=== PATIENT | female | born 1940 | race Caucasian/White ===

== ENCOUNTER 2023-04-11 10:42 | Outpatient (OUT) | payer MEDICARE, MEDICAID, SELFPAY ==
--- NOTE | 2023-04-11 10:45 | MM_ITS ---
Patient: JOYCELYN HAMM Exam Date: 04/11/2023 : 1940 Gender:F Ordering : DR ADRIANNE FARLEY Admission #: [id number] Family : Order #: [id number] CLICK HERE TO VIEW EXAM RADIOLOGY REPORT PROCEDURE: MM SCREENING MAMMO BI COMPARISON: MG MAMM SCREEN ANNA W CAD, 04/05/2022. MG MAMM SCREEN ANNA W CAD, 03/07/2021. MG MAMM SCREEN 3D ANNA CAD, 06/24/2017. INDICATIONS: Screening mammogram Z12.31 Calculator Name NCI Breast Cancer Risk Assessment Tool 5 Year Breast Cancer Risk 4.80% Lifetime Breast Cancer Risk 5.40% Personal Breast Cancer No Personal Ovarian Cancer No Treatments None Family Cancers Sister with breast cancer at age 59; Sister with breast cancer at age 49. LOCATION: [facility] BREAST COMPOSITION: Extremely dense, which lowers the sensitivity of mammography. FINDINGS: DIAGNOSTIC CATEGORY 2--BENIGN FINDING: RIGHT BREAST: No significant suspicious finding. Scattered benign-appearing calcifications are present. No significant change has occurred. LEFT BREAST: No significant suspicious finding. Scattered benign-appearing calcifications are present. Scattered benign-appearing lymph nodes are present. No significant change has occurred. RECOMMENDATIONS: ROUTINE MAMMOGRAM AND CLINICAL EVALUATION IN 12 MONTHS. PLEASE NOTE: A NORMAL MAMMOGRAM DOES NOT EXCLUDE THE POSSIBILITY OF BREAST CANCER. A CLINICALLY SUSPICIOUS PALPABLE LUMP SHOULD BE BIOPSIED. Dictated by: Jaziel Mcpherson M.D. on 04/12/2023 at 14:43 Approved by: Jaziel Mcpherson M.D. on 04/12/2023 at 14:49
== END 2023-04-11 10:43 ==
LOC: MAMMO 10:42
PROVIDERS: PCP Family Medicine; Visit Provider Family Medicine
DX: Z12.31 Encounter for screening mammogram for malignant neoplasm of breast (principal); Z80.3 Family history of malignant neoplasm of breast
CPT/HCPCS: 77067

== ENCOUNTER 2023-10-14 11:55 | Outpatient (OUT) | payer MEDICARE, MEDICAID, SELFPAY ==
--- NOTE | 2023-10-14 12:02 | XR_ITS ---
The [address] [address] Patient Name: JOYCELYN HAMM MRN: [id number] date: 1940 Sex: F Assigned Patient Location: [facility] Current Patient Location: [facility] Accession/Order Number: [id number] Exam Date: 10/14/2023 12:22 Report Date: 10/14/2023 13:03 At the request of: RADHA CARPIO Procedure: XR chest 2V EXAM: XR chest 2V HISTORY: Bronchitis, wheezing COMPARISON: None. TECHNIQUE: PA and lateral views of the chest. FINDINGS: The cardiomediastinal silhouette is enlarged. Interstitial opacity. There is no pneumothorax. No pleural effusion is noted. The osseous structures are intact. XR/XR chest 2V IMPRESSION: Cardiomegaly with congestion. Electronically authenticated by: KYLEE MANCUSO Date: 10/14/2023 13:03
== END 2023-10-14 11:56 | disposition home or self-care (01) ==
PROVIDERS: PCP Family Medicine; Visit Provider Nurse Practitioner Family
DX: J40 Bronchitis, not specified as acute or chronic (principal); I51.7 Cardiomegaly
CPT/HCPCS: 71046

== ENCOUNTER 2024-03-04 06:36 | Outpatient (OUT) | payer MEDICARE, MEDICAID, SELFPAY ==
--- OUTSIDE RECORDS SUMMARY | 2024-03-03 06:49 | XMS_ITS | CCD ---
Author Organization [facility] Care Team Providers Care Video Editing Intern Name Role Phone CHRISTIE ESTRADA Referring Unavailable RACHEL MAE Primary Care Unavailable CHRISTIE ESTRADA Admitting Unavailable CHRISTIE ESTRADA Attending Unavailable KITTY SINGH Consulting Unavailable AKBANITITO Consulting Unavailable MAI CHOU Consulting Unavailable Danyel Angelo Unavailable LISA, DR RANDHAWA Admitting Unavailable MISC, DR BACK Primary Care Unavailable DYCUSBURG, DR GIA Ralph Consulting Unavailable CHABAN, DR RANDHAWA Attending Unavailable CHABAN, DR RANDHAWA Consulting Unavailable MISC, DR BACK Admitting Unavailable MISC, DR BACK Primary Care Unavailable WEST, DR GIA Ralph Consulting Unavailable MISC, DR BACK Attending Unavailable MISC, DR BACK Consulting Unavailable ZIEBER, DR DEYA Aguilera Consulting Unavailable MISC, DR BACK Admitting Unavailable MISC, DR BACK Attending Unavailable MISC, DR BACK Consulting Unavailable MISC, DR BACK Primary Care Unavailable ZIEBPRABHU, DR DEYA Aguilera Consulting Unavailable MISC, DR BACK Admitting Unavailable MISC, DR BACK Attending Unavailable MISC, DR BACK Primary Care Unavailable MISC, DR BACK Primary Care Unavailable CORIE, MYLES Admitting Unavailable CORIEMYLES Attending Unavailable CORIE AHMAD Consulting Unavailable MISC, DR BACK Admitting Unavailable MISC, DR BACK Attending Unavailable MISC, DR BACK Consulting Unavailable MISC, DR BACK Primary Care Unavailable ZIEBER, DR DEYA Aguilera Consulting Unavailable MISC, DR BACK Admitting Unavailable MISC, DR BACK Attending Unavailable MISC, DR BACK Primary Care Unavailable DYCUSBURG, DR GIA Ralph Consulting Unavailable MISC, DR BACK Consulting Unavailable RACHEL MAE Primary Care Unavailable RUEL WONG Admitting Unavailable RUEL WONG Attending Unavailable MARYCRUZ Barnett Admitting Unavailable KUNS, CARI R Primary Care Unavailable MARYCRUZ Barnett Attending Unavailable KUNS, CARI R Primary Care Unavailable Dolce, Ramiro R Admitting Unavailable Dolce, Ramiro R Attending Unavailable MARYCRUZ Barnett Admitting Unavailable MARYCRUZ Barnett Attending Unavailable RACHEL MAE Primary Care Unavailable MARYCRUZ Barnett Attending Unavailable MARYCRUZ Barnett Admitting Unavailable Klaege, Nery Primary Care Unavailable KUNS, CARI R Primary Care Unavailable Dolce, Ramiro R Admitting Unavailable Dolce, Ramiro R Attending Unavailable Klaedustin, Nery Attending Unavailable Klaege, Nery Primary Care Unavailable MERLENE, RACHEL Mackenzie Primary Care Unavailable RUEL WONG Admitting Unavailable RUEL WONG Attending Unavailable James Healy Admitting Unavailable James Healy Attending Unavailable RACHEL MAE Primary Care Unavailable Eve FARRAR, Erma Fields Admitting Unavailable Eve FARRAR, Erma E Attending Unavailable RACHEL MAE Primary Care Unavailable MARYCRUZ Barnett Admitting Unavailable MARYCRUZ Barnett Attending Unavailable RACHEL MAE Primary Care Unavailable KUNS, CARI R Primary Care Unavailable MARYCRUZ Barnett Attending Unavailable MARYCRUZ Barnett Admitting Unavailable Evita Baker Unavailable Shirin [employer]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 Givens Primary Care Provider Unallocated, [place] Provider Primary Care Provider SILVA SANDERS Attending Unavailable SILVA SANDERS Attending Unavailable CARI NAPOLES Attending Unavailable CARI NAPOLES Referring Unavailable CARI NAPOLES Primary Care Unavailable CARI NAPOLES Attending Unavailable CARI NAPOLES Referring Unavailable SHIRIN, CARI ALVARADO Primary Care Unavailable JERDE CELESTIN Attending Unavailable CARI NAPOLES Referring Unavailable CARI NAPOLES Primary Care Unavailable CARI NAPOLES Referring Unavailable SHIRIN, CARI ALVARADO Primary Care Unavailable JERED CELESTIN Referring Unavailable CARI NAPOLES Primary Care Unavailable Medications Current Medications Medication Drug Class(es) Dates Sig (Normalized) Sig (Original) [id number] 200 actuat albuterol 0.09 mg/actuat metered dose inhaler (11 sources) beta2-Adrenergic Agonist Start: 10-09-2023 take 2 puff(s) by inhalation four times daily as needed albuterol (PROVENTIL HFA;VENTOLIN HFA) 90 mcg/actuation inhaler INHALE 2 PUFFS 4 TIMES A DAY NEEDED 0 10/09/2023 Active Start: 10-09-2023 take 2 puff(s) by in halation four times daily as needed Albuterol Sulfate HFA 108 (90 Base) MCG/ACT 2 puffs Inhalation 4 times a day prn Oct, Active albuterol HFA (V entolin HFA) 90 mcg/act inhaler Ventolin HFA 90 mcg/actuation aerosol inhaler INHALE 2 PUFFS EVERY 3 TO 4 HOURS NEEDED 0 Active allopurinol 300 mg oral tablet (16 sources) Xanthine Oxidase Inhibitor Start: 07-22-2023 End: 01-14-2024 take 1 tablet by mouth once daily in the morning allopurinoL (ZYLOPRIM) 300 mg tablet Indications: Gouty arthropathy take 1 tablet by mouth every morning 30 tablet 5 01/14/2024 Active apixaban 5 mg oral tablet (16 sources) Factor Xa Inhibitor Start: 10-03-2022 End: 11-01-2023 take 1 tablet by mouth in the morning, then take 1 tablet by mouth at bedtime apixaban (ELIQUIS) 5 mg tablet Take 1 tablet (5 mg total) by mouth in the morning and 1 tablet (5 mg total) before bedtime. 180 tablet 3 11/01/2023 Active atorvastatin 40 mg oral tablet (16 sources) HMG-CoA Reductase Inhibitor Start: 07-22-2023 End: 12-05-2023 take 1 tablet by mouth once daily in the morning atorvastatin (LIPITOR) 40 mg tablet Indications: Mixed hyperlipidemia TAKE 1 TABLET BY MOUTH EVERY MORNING 90 tablet 0 12/05/2023 Active benzonatate 200 mg oral capsule (10 sources) Non-narcotic Antitussive Start: 10-09-2023 End: 01-14-2024 take 1 capsule by mouth three times daily as needed for cough benzonatate (TESSALON PERLES) 200 mg capsule Take 1 capsule (200 mg total) by mouth 3 (three) times a day as needed for cough. 20 capsule 1 01/14/2024 Active brompheniramine maleate 0.4 mg/ml / dextromethorphan hydrobromide 2 mg/ml / pseudoephedrine hydrochloride 6 mg/ml oral solution (5 sources) alpha-Adrenergic Agonist, Uncompetitive B-dppdsg-S-asparta te Receptor Antagonist, Sigma-1 Agonist Start: 01-09-2024 take 5 mL by mouth four times daily as needed brompheniramine-pse udoeph-DM 2-30-10 mg/5 mL syrup Take 5 mL by mouth 4 (four) times a day as needed for allergies. 120 mL 1 01/09/2024 Active bumetanide 2 mg oral tablet (15 sources) Loop Diuretic Start: 07-22-2023 take 1 tablet by mouth once daily bumetanide (BUMEX) 2 mg tablet Take 1 tablet (2 mg total) by mouth daily. 90 tablet 1 07/22/2023 Active calcium carbonate 1250 mg / cholecalciferol 200 unt oral tablet (10 sources) Vitamin D take 1 tablet by mouth once in the morning calcium carbonate-vitamin D3 (OSCAL 500 + D) 500 mg(1,250mg) -200 units per tablet Take 1 tablet by mouth in the morning and 1 tablet in the evening. Take with meals. 0 Active cetirizine hydrochloride 10 mg oral tablet (13 sources) Histamine-1 Receptor Antagonist Start: 07-22-2023 End: 01-14-2024 take 1 tablet by mouth once daily in the morning cetirizine (ZyrTEC) 10 mg tablet take 1 tablet by mouth every morning 30 tablet 5 01/14/2024 Active CPAP Machine (3 sources) CPAP Machine Act priya 24 hr dilTIAZem hydrochloride 120 mg extended release oral capsule (15 sources) Calcium Channel Alla Start: 07-22-2023 take 1 capsule by mouth in the morning, then take 1 capsule by mouth every twenty-four hours at bedtime dilTIAZem CD (CARDIZEM CD) 120 mg 24 hr capsule Take 1 capsule (120 mg total) by mouth in the morning and 1 capsule (120 mg total) before bedtime. 60 capsule 6 07/22/2023 Active dilTIAZem ER (Ti azac) 120 MG 24 hr capsule 120 mg. 0 Active dilTIAZem HCl 12 0 MG as directed Orally Active doxycycline hyclate 100 mg oral tablet (2 sources) Tetracycline-class Drug Start: 10-09-2023 End: 11-01-2023 take 1 tablet by mouth twice daily doxycycline (VIBRA-TABS) 100 mg tablet TAKE 1 TABLET BY MOUTH TWICE A DAY FOR 10 DAYS 0 10/09/2023 11/01/2023 Discontinued (Therapy completed) flash glucose scanning reader (FREESTYLE GLO 14 DAY READER) misc (8 sources) flash glucose scanning reader (FREESTYLE GLO 14 DAY READER) [facility] FreeStyle Glo 14 Day [place] 0 Active flash glucose sensor (FREESTYLE GLO 14 DAY SENSOR) kit (8 sources) flash glucose sensor (FREESTYLE GLO 14 DAY SENSOR) kit FreeStyle Glo 14 Day Sensor kit 0 Active 60 actuat fluticasone propionate 0.25 mg/actuat / salmeterol 0.05 mg/actuat dry powder inhaler (2 sources) Corticosteroid, beta2-Adrenergic Agonist take 1 puff(s) by inhalation twice daily Fluticasone-Salmet clarissa 250-50 MCG/ACT aerosol powder Advair Diskus 250 mcg-50 mcg/dose powder for inhalation Inhale 1 puff twice a day by inhalation route for 30 days. 0 Active gabapentin 100 mg oral capsule (20 sources) Anti-epileptic Agent Start: 02-02-2024 take 1 capsule by mouth once daily at bedtime gabapentin (NEURONTIN) 100 mg capsule Indications: Polyneuropathy take 1 capsule by mouth every night at bedtime 30 capsule 2 02/02/2024 Active Start: 07-22-2023 End: 02-02-2024 take 1 capsule by mouth once daily at bedtime gabapentin (NEURONTIN) 100 mg capsule Indications: Polyneuropathy TAKE 1 CAPSULE BY MOUTH EVERY NIGHT AT BEDTIME 30 capsule 2 11/18/2023 02/02/2024 Discontinued Start: 07-22-2023 End: 11-18-2023 take 2 capsules by mouth once daily in the morning, then take 1 capsule by mouth at lunch, then take 1 capsule by mouth once, then take 2 capsules by mouth once daily at bedtime gabapentin (NEURONTIN) 300 mg capsule Indications: Polyneuropathy TAKE 2 CAPSULES BY MOUTH EVERY MORNING , TAKE 1 CAPSULE AT LUNCH , TAKE 1 CAPSULE EVERY AFTERNOON , & TAKE 2 CAPSULES EVERY NIGHT AT BEDTIME 180 capsule 2 11/18/2023 Active Start: 04-02-2023 gabapentin (Ne urontin) 300 MG capsule 300 mg. 0 04/02/2023 Active insulin aspart (NovoLOG) 100 UNIT/ML injection (2 sources) insulin aspart (NovoLOG) 100 UNIT/ML injection as directed Injection 0 Active insulin aspart, human 100 unt/ml injectable solution (13 sources) Insulin Analog inject 0.4 mL by subcutaneous injection in the morning insulin aspart U-100 (NovoLOG) 100 unit/mL injection Inject 0.4 mL (40 Units total) under the skin in the morning and 0.4 mL (40 Units total) at noon and 0.4 mL (40 Units total) in the evening. Inject before meals. Takes 20 units am, 30 units lunch and 30 unit supper.. 0 Active NovoLOG 100 UNIT /ML as directed Subcutaneous Active insulin detemir 100 unt/ml injectable solution (15 sources) Insulin Analog inject 0.2 mL by subcutaneous injection in the morning insulin detemir U-100 (LEVEMIR) 100 unit/mL injection Inject 0.2 mL (20 Units total) under the skin in the morning and 0.2 mL (20 Units total) before bedtime. 80 units at night. 0 Active insulin detemir (Levemir) 100 UNIT/ML injection as directed Subcutaneous 0 Active Levemir 100 UNIT /ML as directed Subcutaneous Active 3 ml insulin lispro 100 unt/ml pen injector (10 sources) Insulin Analog Start: 03-04-2023 inject 20 [IU] by subcutaneous injection at breakfast, then inject 30 [IU] by subcutaneous injection at dinner insulin lispro (HumaLOG KwikPen Insulin) 100 unit/mL insulin pen INJECT 20 UNITS UNDER THE SKIN AT BREAKFAST, 30 UNITS AT LUNCH AND DINNER 0 03/04/2023 Active lactic acid 50 mg/ml topical lotion (8 sources) Start: 07-22-2023 ammonium lactate (LAC-HYDRIN FIVE) 5 % lotion Apply 1 application. topically daily. 226 g 1 07/22/2023 Active levothyroxine sodium 0.137 mg oral tablet (15 sources) l-Thyroxine Start: 06-24-2022 take 1 tablet by mouth in the morning levothyroxine (SYNTHROID, LEVOTHROID) 137 MCG tablet Take 1 tablet (137 mcg total) by mouth in the morning. 90 tablet 3 07/22/2023 Active take 1 tablet by tierra th once daily in the morning Levothyroxine Sodium 137 MCG 1 tablet in the morning on an empty stomach Orally Once a day Active lidocaine 0.05 mg/mg medicated patch (10 sources) Antiarrhythmic, Amide Local Anesthetic lidocaine (LIDODERM) 5 % lidocaine 5 % topical patch 0 Active linagliptin 5 mg oral tablet (15 sources) Dipeptidyl Peptidase 4 Inhibitor Start : 06-24 take 1 tablet by mouth in the morning TRADJENTA 5 mg tablet Take 1 tablet (5 mg total) by mouth in the morning. 0 09/13/2022 Active methylPREDNISolone (2 sources) Corticosteroid Start : 10-09 End: 11-01 methylPREDNISolone (MEDROL, MARCK,) 4 mg tablet TAKE 6 TABLETS ON DAY 1 DIRECTED ON PACKAGE AND DECREASE BY 1 TAB EACH DAY FOR A TOTAL OF 6 DAYS 0 10/09/2023 11/01/2023 Discontinued (Therapy completed) Start: 10-09-2023 Medrol 4 MG as directed Orally As Directed for 6 days Oct, Active 24 hr mirabegron 25 mg extended release oral tablet (17 sources) beta3-Adrenergic Agonist Start: 12-05-2023 End: 01-14-2024 take 2 tablets by mouth once daily in the morning mirabegron (MYRBETRIQ) 25 mg tablet extended release 24 hr take 2 tablets by mouth every morning 60 tablet 5 01/14/2024 Active Start: 07-22-2023 End: 12-05-2023 take 2 tablets by mouth every twenty-four hours in the morning mirabegron (MYRBETRIQ) 25 mg tablet extended release 24 hr Take 2 tablets (50 mg total) by mouth in the morning. 90 tablet 3 07/22/2023 12/05/2023 Discontinued Myrbetriq 25 MG 24 hr tablet 25 mg. 0 Active take 1 tablet by tierra th every twenty-four hours Myrbetriq 25 MG 1 tablet Orally Once a day Active oxygen as ordered (3 sources) oxygen as ordere d Active predniSONE 10 mg oral tablet (1 source) predniSONE 10 MG 4 daily for 7 days, 3 daily for 7 days 2 daily for 7 days, then 1 daily for21 days Orally Once a day for 42 day(s) Active rOPINIRole 0.5 mg oral tablet (13 sources) Nonergot Dopamine Agonist Start: 01-14-2024 take 1 tablet by mouth three times daily rOPINIRole (REQUIP) 0.5 mg tablet take 1 tablet by mouth three times a day 90 tablet 5 01/14/2024 Active Start: 07-23-2023 End: 01-14-2024 take 1 tablet by mouth once daily rOPINIRole (REQUIP) 0.5 mg tablet Take 1 tablet (0.5 mg total) by mouth nightly. 90 tablet 3 07/23/2023 01/14/2024 Discontinued Start: 09-06-2022 rOPINIRole (Re quip) 0.25 MG tablet 0.25 mg 1 (one) time each day at the same time. 0 09/06/2022 Active simvastatin 20 mg oral tablet (2 sources) HMG-CoA Reductase Inhibitor simvastatin (Zocor) 20 MG tablet 20 mg. 0 Active SITagliptin 100 mg oral tablet (2 sources) Dipeptidyl Peptidase 4 Inhibitor SITagliptin (Januvia ) 100 MG tablet 100 mg. 0 Active spironolactone 25 mg oral tablet (15 sources) Aldosterone Antagonist Start: 03-29-20 take 1 tablet by mouth in the morning spironolactone (ALDACTONE) 25 mg tablet Take 1 tablet (25 mg total) by mouth in the morning. 90 tablet 3 07/22/2023 Active TRUE METRIX GLUCOSE METER misc (8 sources) Start: 12-14-19 TRUE METRIX GLUCOSE METER misc TO TEST BLOOD SUGAR THREE TIMES DAILY 0 12/14/2022 Active Problems Active Problems Problem Classification Problem Date Documented Date Episodic/Chronic Cardiac dysrhythmias (14 sources) Paroxysmal atrial fibrillation; Translations: [Paroxysmal atrial fibrillation] Onset: 06-11-2018 11-01-2023 Chronic Chronic kidney disease (1 source) Chronic kidney disease; Translations: [Chronic kidney disease, stage 3a] Onset: 07-22-2023 Chronic obstructive pulmonary disease and bronchiectasis (1 source) Bronchitis, not specified as acute or chronic Episodic Chronic ulcer of skin (10 sources) Chronic ulcer of foot; Translations: [Non-pressure chronic ulcer of other part of unspecified foot with unspecified severity] Onset: 04-05-2023 Resolved: 04-17-2023 04-17-2023 Chronic Conduction disorders (20 sources) Incomplete right bundle branch block; Translations: [Unspecified right bundle-branch block] Onset: 01-15-2018 Resolved: 10-24-2022 01-28-2023 Chronic Diabetes mellitus with complications (20 sources) Type 2 diabetes mellitus with hyperglycemia; Translations: [Type 2 diabetes mellitus] Onset: 01-18-2016 Resolved: 01-28-2023 Chronic Disorders of lipid metabolism (18 sources) Mixed hyperlipidemia; Translations: [Hyperlipidemia] Onset: 02-05-2018 11-01-2023 Chronic Essential hypertension (14 sources) Essential (primary) hypertension; Translations: [Essential hypertension] Onset: 02-05-2018 11-01-2023 Chronic Genitourinary symptoms and ill-defined conditions (8 sources) Mixed urinary incontinence; Translations: [Mixed incontinence] Onset: 07-22-2023 07-22-2023 Chronic Gout and other crystal arthropathies (9 sources) Gouty arthropathy; Translations: [Gout, unspecified] Onset: 01-18-2016 01-28-2023 Chronic Heart valve disorders (20 sources) Rheumatic tricuspid insufficiency; Translations: [Non-rheumatic mitral regurgitation ] Onset: 07-14-2018 11-01-2023 Chronic Hypertension with complications and secondary hypertension (11 sources) Hypertensive chronic kidney disease with stage 1 through stage 4 chronic kidney disease, or unspecified chronic kidney disease; Translations: [Benign hypertensive heart disease without congestive heart failure] Onset: 03-02-2019 07-23-2023 Chronic Malaise and fatigue (1 source) Other fatigue; Translations: [OTHER FATIGUE] Onset: 11-27-2022 Episodic Nutritional deficiencies (10 sources) Vitamin D deficiency; Translations: [Vitamin D deficiency, unspecified] Onset: 01-18-2016 01-28-2023 Chronic Osteoarthritis (12 sources) Osteoarthritis of knee; Translations: [Osteoarthritis of knee, unspecified] Onset: 10-17-2016 01-28-2023 Chronic Other acquired deformities (10 sources) Levoscoliosis; Translations: [Other forms of scoliosis, site unspecified] Onset: 08-28-2017 01-28-2023 Chronic Other and ill-defined heart disease (3 sources) Cardiomegaly; Translations: [CARDIOMEGALY] Onset: 03-01-2021 Chronic Other and ill-defined heart disease (11 sources) Left ventricular hypertrophy; Translations: [Cardiomegaly] Onset: 07-14-2018 11-01-2023 Chronic Other and ill-defined heart disease (19 sources) Bilateral enlargement of atria; Translations: [Cardiomegaly] Onset: 07-14-2018 11-01-2023 Chronic Other circulatory disease (1 source) Other specified symptoms and signs involving the circulatory and respiratory systems; Translations: [OTH SPEC SX SIGNS INVLV CIRC RS] Onset: 11-27-2022 Episodic Other connective tissue disease (3 sources) Pain in both feet; Translations: [Pain in right foot] Onset: 04-02-2023 04-02-2023 Episodic Other diseases of veins and lymphatics (10 sources) Lymphedema of lower extremity; Translations: [Lymphedema, not elsewhere classified] Onset: 04-19-2021 01-28-2023 Chronic Other diseases of veins and lymphatics (11 sources) Stasis dermatitis of lower limb due to chronic peripheral venous hypertension; Translations: [Chronic venous hypertension (idiopathic) with inflammation of unspecified lower extremity] Onset: 12-22-2020 01-28-2023 Chronic Other diseases of veins and lymphatics (1 source) Chronic venous hypertension (idiopathic) with inflammation of unspecified lower extremity; Translations: [Chronic venous hypertension (idiopathic) with inflammation of unspecified lower extremity] Onset: 01-28-2023 Chronic Other hereditary and degenerative nervous system conditions (1 source) Restless legs syndrome; Translations: [RESTLESS LEGS SYNDROME] Onset: 07-26-2022 Chronic Other hereditary and degenerative nervous system conditions (10 sources) Restless legs; Translations: [Restless legs syndrome] Onset: 01-18-2016 01-28-2023 Chronic Other lower respiratory disease (16 sources) Fibrosis of lung; Translations: [Pulmonary fibrosis, unspecified] Onset: 06-07-2022 01-28-2023 Chronic Other lower respiratory disease (4 sources) Pulmonary fibrosis, unspecified; Translations: [PULMONARY FIBROSIS UNSPECIFIED] Onset: 01-03-2022 Resolved: 04-12-2022 Chronic Other lower respiratory disease (4 sources) Cryptogenic organizing pneumonia; 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] Chronic Other lower respiratory disease (7 sources) Cryptogenic organizing pneumonia; 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] Onset: 02-01-2022 Resolved: 04-12-2022 Chronic Other lower respiratory disease (1 source) Cough Onset: 01-09-2024 Episodic Other nervous system disorders (12 sources) Polyneuropathy; Translations: [Polyneuropathy, unspecified] Onset: 01-15-2018 01-28-2023 Chronic Other nutritional; endocrine; and metabolic disorders (8 sources) Body mass index 40+ - severely obese; Translations: [Body mass index (BMI) 45.0-49.9, adult] Onset: 03-09-2022 03-09-2022 Chronic Other nutritional; endocrine; and metabolic disorders (11 sources) Morbid obesity; Translations: [Morbid (severe) obesity due to excess calories] Onset: 09-17-2019 01-28-2023 Chronic Other nutritional; endocrine; and metabolic disorders (1 source) Morbid (severe) obesity due to excess calories; Translations: [Morbid (severe) obesity due to excess calories] Onset: 01-28-2023 Chronic Other skin disorders (1 source) Wound healed; Translations: [Personal history of diseases of the skin and subcutaneous tissue] 12-18-2023 Episodic Other upper respiratory disease (8 sources) Allergic rhinitis due to pollen; Translations: [Allergic rhinitis due to pollen] Onset: 01-18-2016 01-28-2023 Chronic Other upper respiratory infections (2 sources) Viral upper respiratory tract infection; Translations: [Acute upper respiratory infection, unspecified] Onset: 01-09-2024 01-09-2024 Episodic Pulmonary heart disease (14 sources) Pulmonary hypertension; Translations: [Pulmonary hypertension, unspecified] Onset: 10-23-2018 11-01-2023 Chronic Residual codes; unclassified (16 sources) Obstructive sleep apnea syndrome; Translations: [Obstructive sleep apnea (adult) (pediatric)] Onset: 10-17-2016 11-01-2023 Chronic Residual codes; unclassified (3 sources) Obstructive sleep apnea (adult) (pediatric); Translations: [Obstructive sleep apnea (adult) (pediatric)] Onset: 01-03-2022 Resolved: 01-03-2022 Chronic Residual codes; unclassified (2 sources) Hypersomnia; Translations: [Hypersomnia, unspecified] Onset: 11-21-2022 04-05-2023 Chronic Residual codes; unclassified (2 sources) Periodic limb movement disorder; Translations: [Periodic limb movement disorder] Onset: 11-21-2022 04-05-2023 Chronic Residual codes; unclassified (1 source) Viral syndrome; Translations: [Other general symptoms and signs] 01-09-2024 Episodic Residual codes; unclassified (1 source) Other general symptoms and signs; Translations: [Other general symptoms and signs] Onset: 01-09-2024 Episodic Residual codes; unclassified (1 source) Other specified postprocedural states; Translations: [Other specified postprocedural states] Onset: 12-26-2018 Respiratory failure; insufficiency; arrest (adult) (12 sources) Chronic respiratory failure with hypoxia; Translations: [Chronic respiratory failure] Onset: 11-08-2021 Resolved: 01-28-2023 Chronic Spondylosis; intervertebral disc disorders; other back problems (10 sources) Degeneration of lumbar intervertebral disc; Translations: [Other intervertebral disc degeneration, lumbar region] Onset: 08-28-2017 01-28-2023 Chronic Thyroid disorders (14 sources) Hypothyroidism, unspecified; Translations: [Hypothyroidism] Onset: 01-18-2016 Chronic Unclassified (1 source) CHRN KIDNEY DISEASE STG 3 UNSP; Translations: [CHRN KIDNEY DISEASE STG 3 UNSP] Onset: 11-27-2022 Unclassified (1 source) PERSONAL HISTORY OF COVID-19; Translations: [PERSONAL HISTORY OF COVID-19] Onset: 12-21-2021 Past or Other Problems Problem Classification Problem Date Documented Date Episodic/Chronic Abdominal pain (4 sources) Right upper quadrant abdominal tenderness; Translations: [RUQ ABDOMINAL TENDERNESS] Onset: 04-05-2022 Episodic Acute and unspecified renal failure (10 sources) Acute renal failure syndrome; Translations: [Acute kidney failure, unspecified] Onset: 09-17-2019 Resolved: 01-28-2023 01-28-2023 Episodic Biliary tract disease (1 source) Calculus of gallbladder without cholecystitis without obstruction; Translations: [CALCU GB W/O CHOLECYST W/O OBST] Onset: 04-11-2022 Episodic Cardiac dysrhythmias (10 sources) Bradycardia; Translations: [Bradycardia, unspecified] Onset: 01-15-2018 01-28-2023 Episodic Complications of surgical procedures or medical care (18 sources) Postoperative hematoma formation; Translations: [Postprocedural hematoma of a circulatory system organ or structure following a cardiac catheterization] Onset: 01-28-2023 Resolved: 01-28-2023 01-28-2023 Episodic Diseases of white blood cells (10 sources) Leukocytosis; Translations: [Elevated white blood cell count, unspecified] Onset: 09-17-2019 Resolved: 01-28-2023 01-28-2023 Chronic Mood disorders (10 sources) Mild depression; Translations: [Mild depression] Onset: 09-22-2021 Resolved: 01-28-2023 01-28-2023 Chronic Mood disorders (8 sources) Mood disorders Onset: 10-14-2023 Resolved: 01-23-2024 10-14-2023 Mycoses (13 sources) Onychomycosis of toenails; Translations: [Tinea unguium] Onset: 04-19-2016 01-28-2023 Episodic Other aftercare (2 sources) 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; 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] Onset: 12-05-2022 Episodic Other aftercare (18 sources) Long-term current use of anticoagulant; Translations: [senior care (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 anticoagulants] Onset: 07-14-2018 11-01-2023 Episodic Other aftercare (6 sources) Long-term current use of insulin; Translations: [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] Onset: 10-22-2019 Resolved: 01-28-2023 01-28-2023 Episodic Other aftercare (1 source) senior care (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 anticoagulants; Translations: [intermediate project manager (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 anticoagulants] Onset: 01-28-2023 Episodic Other circulatory disease (8 sources) History of cardiovascular surgery; Translations: [Presence of other cardiac implants and grafts] Onset: 03-01-2021 Resolved: 10-24-2022 10-24-2022 Chronic Other circulatory disease (2 sources) Personal history of other diseases of the circulatory system; Translations: [Personal history of other diseases of the circulatory system] Onset: 12-26-2018 Episodic Other diseases of veins and lymphatics (2 sources) Vascular insufficiency; Translations: [Venous insufficiency (chronic) (peripheral)] Onset: 04-02-2023 04-02-2023 Episodic Other infections; including parasitic (10 sources) Personal history of other infectious and parasitic diseases; Translations: [History of severe acute respiratory syndrome coronavirus 2 (SARS-CoV-2) disease] Onset: 09-22-2021 01-28-2023 Episodic Other lower respiratory disease (5 sources) Dyspnea, unspecified; Translations: [DYSPNEA UNSPECIFIED] Onset: 01-03-2022 Resolved: 01-03-2022 Episodic Other lower respiratory disease (1 source) Other nonspecific abnormal finding of lung field; Translations: [OTH NONSPECIFIC ABN FIND LNG FIELD] Onset: 01-17-2022 Episodic Other nutritional; endocrine; and metabolic disorders (10 sources) Hyperuricemia without signs of inflammatory arthritis and tophaceous disease; Translations: [Hyperuricemia without signs of inflammatory arthritis and tophaceous disease] Onset: 01-02-2022 01-28-2023 Episodic Other screening for suspected conditions (not mental disorders or infectious disease) (20 sources) Encounter for screening, unspecified; Translations: [Encounter for screening mammogram for malignant neoplasm of breast] Onset: 02-05-2018 Episodic Pleurisy; pneumothorax; pulmonary collapse (2 sources) Atelectasis; Translations: [Atelectasis] Onset: 04-05-2023 04-05-2023 Episodic Residual codes; unclassified (1 source) Family history of malignant neoplasm of breast; Translations: [FAMILY HX MALIG NEOPLASM OF BREAST] Onset: 04-11-2022 Episodic Residual codes; unclassified (9 sources) H/O: atrial fibrillation; Translations: [Other specified postprocedural states] Onset: 03-01-2021 11-01-2023 Episodic Residual codes; unclassified (19 sources) Bilateral lower limb edema; Translations: [Localized edema] Onset: 02-05-2018 11-01-2023 Episodic Residual codes; unclassified (11 sources) History of radiofrequency ablation operation on left atrium for arrhythmia; Translations: [Other specified postprocedural states] Onset: 01-09-2019 11-01-2023 Episodic Residual codes; unclassified (6 sources) Family history of diabetes mellitus; Translations: [Family history of diabetes mellitus] Onset: 07-19-2016 01-28-2023 Episodic Residual codes; unclassified (8 sources) FH: Hypertension; Translations: [Family history of ischemic heart disease and other diseases of the circulatory system] Onset: 07-19-2016 Resolved: 01-23-2024 01-28-2023 Episodic Residual codes; unclassified (1 source) Other specified postprocedural states; Translations: [Other specified postprocedural states] Onset: 01-28-2023 Episodic Residual codes; unclassified (1 source) Localized edema; Translations: [Localized edema] Onset: 03-01-2021 Episodic Skin and subcutaneous tissue infections (10 sources) Cellulitis; Translations: [Cellulitis, unspecified] Onset: 09-17-2019 01-28-2023 Episodic Superficial injury; contusion (10 sources) Hematoma of lower leg; Translations: [Contusion of unspecified lower leg, initial encounter] Onset: 01-09-2019 01-28-2023 Episodic Unclassified (3 sources) 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 Onset: 01-03-2022 Resolved: 04-12-2022 Unclassified (2 sources) Onset: 01-23-2024 01-23-2024 Results Test Name Value Interpretation Reference Range Facility COMPREHENSIVE METABOLIC PANE [facility] 01-23-2024 Albumin [Mass/Vol] 4.1 g/dL Normal 3.2-5.3 [facility] Comment on above: Performed By: #### Lawson BOUCHER, 56090-2 #### [facility] ([id number]) [address], [address] [place] [address] ALP [Catalytic activity/Vol] 55 U/L Normal 39-130 [facility] Comment on above: Performed By: #### Lawson BOUCHER, 50171-7 #### [facility] ([id number]) [address], [address] [place] [address] ALT [Catalytic activity/Vol] 16 U/L Normal 0-31 [facility] Comment on above: Performed By: #### Lawson BOUCHER, 62417-2 #### [facility] ([id number]) [address], [address] [place] [address] Anion gap [Moles/Vol] 10 mmol/L Normal 5-15 [facility] Comment on above: Performed By: #### Lawson BOUCHER, [id number] #### [facility] ([id number]) [address], [address] [place] [address] AST [Catalytic activity/Vol] 20 U/L Normal 0-41 [facility] Comment on above: Performed By: #### Lawson BOUCHER, 27371-4 #### [facility] ([id number]) [address], [address] [place] [address] Bilirubin [Mass/Vol] 1.0 mg/dL Normal 0.3-1.2 [facility] Comment on above: Performed By: #### Lawson BOUCHER 72084-5 #### [facility] ([id number]) [address], [address] [place] [address] Calcium [Mass/Vol] 9.1 mg/dL Normal 8.5-10.5 [facility] Comment on above: Performed By: #### Lawson BOUCHER [id number] #### [facility] ([id number]) [address], [address] [place] [address] Chloride [Moles/Vol] 98 mmol/L Normal 98-109 [facility] Comment on above: Performed By: #### Lawson BOUCHER, 82782-3 #### [facility] ([id number]) [address], [address] [place] [address] CO2 [Moles/Vol] 31 mmol/L Normal 22-32 [facility] Comment on above: Performed By: #### Lawson BOUCHER, [id number] #### [facility] ([id number]) [address], [address] [place] [address] Creatinine [Mass/Vol] 1.37 mg/dL High 0.40-1.00 [facility] Comment on above: Result Comment: METH OD TRACEABLE TO IDMS STANDARD Performed By: #### Lawson BOUCHER, [id number] #### [facility] ([id number]) [address], [address] [place] [address] GFR/1.73 sq M.predicted among non-blacks MDRD (S/P/Bld) [Vol rate/Area] 38 mL/min/{1.73_m2} Low >59 [facility] Comment on above: Result Comment: Reported eGFR is based on the CKD-EPI 2020 equation that does not use a race coefficient. Performed By: #### Lawson BOUCHER, 44238-7 #### [facility] ([id number]) [address], [address] [place] [address] Glucose [Mass/Vol] 179 mg/dL High 65-99 [facility] Comment on above: Performed By: #### Lawson BOUCHER 31791-6 #### [facility] ([id number]) [address], [address] [place] [address] Potassium [Moles/Vol] 4.0 mmol/L Normal 3.5-5.0 [facility] Comment on above: Performed By: #### Lawson BOUCHER, 22537-2 #### [facility] ([id number]) [address], [address] [place] [address] Protein [Mass/Vol] 7.3 g/dL Normal 6.0-8.0 [facility] Comment on above: Performed By: #### Lawson BOUCHER, 86672-2 #### [facility] ([id number]) [address], [address] [place] [address] Sodium [Moles/Vol] 139 mmol/L Normal 134-146 [facility] Comment on above: Performed By: #### Lawson BOUCHER, 65609-7 #### [facility] ([id number]) [address], [address] [place] [address] Urea nitrogen [Mass/Vol] 34 mg/dL High 5-27 [facility] Comment on above: Performed By: #### Lawson BOUCHRE, 34845-8 #### [facility] ([id number]) [address], [address] [place] [address] Comprehensive metabolic pane jenifer 01-23-2024 Albumin [Mass/Vol] 4.1 g/dL 3.2 - 5.3 g/dL [facility] ALP [Catalytic activity/Vol] 55 U/L 39 - 130 U/L [facility] ALT No additional P-5'-P [Catalytic activity/Vol] 16 U/L 0 - 31 U/L [facility] Anion gap [Moles/Vol] 10 mmol/L 5 - 15 mmol/L [facility] AST [Catalytic activity/Vol] 20 U/L 0 - 41 U/L [facility] Bilirubin [Mass/Vol] 1.0 mg/dL 0.3 - 1.2 mg/dL [facility] Calcium [Mass/Vol] 9.1 mg/dL 8.5 - 10. 5 mg/dL [facility] Chloride [Moles/Vol] 98 mmol/L 98 - 109 mmol/L [facility] CO2 [Moles/Vol] 31 mmol/L 22 - 32 mmol/L [facility] Creatinine [Mass/Vol] 1.37 mg/dL High 0.40 - 1.00 mg/dL [facility] Comment on above: METHOD TRACEABLE TO [facility] STANDARD eGFR (CKD-EPI)non-race dependent 38 Low - PINF [facility] Comment on above: Reported eGFR is based on the CKD-EPI 2020 equation that does not use a race coefficient. Glucose [Mass/Vol] 179 mg/dL High 65 - 99 mg/dL [facility] Potassium [Moles/Vol] 4.0 mmol/L 3.5 - 5.0 mmol/L [facility] Protein [Mass/Vol] 7.3 g/dL 6.0 - 8.0 g/dL [facility] Sodium [Moles/Vol] 139 mmol/L 134 - 146 mmol/L [facility] Urea nitrogen [Mass/Vol] 34 mg/dL High 5 - 27 mg/dL [facility] Lipid 1996 panelon Cholesterol [Mass/Vol] 116 mg/dL Low 150 - 200 mg/dL [facility] Cholesterol in HDL [Mass/Vol] 36 mg/dL Low 39 - PINF mg/dL [facility] Comment on above: HDL <40 mg/dL - High Risk HDL > or = 40mg/dL- Desirable HDL >60 mg/dL - Negative Risk Cholesterol in LDL [Mass/Vol] 50 mg/dL NINF - 130 mg/dL [facility] Comment on above: LDL <100 mg/dL - Desirable LDL >160 mg/dL - High Risk Cholesterol in VLDL [Mass/Vol] 30 mg/dL 0 - 30 mg/dL [facility] Cholesterol.total/ Cholesterol in HDL [Mass ratio] 3.2 {ratio} 1.0 - 5.0 [facility] Triglyceride [Mass/Vol] 148 mg/dL 27 - 150 mg/dL [facility] Cholesterol [Mass/Vol] 116 mg/dL Low 150-200 [facility] Comment on above: Performed By: #### Lawson BOUCHER, 71761-5 #### [facility] ([id number]) [address] [place] [address] Cholesterol in HDL [Mass/Vol] 36 mg/dL Low >39 [facility] Comment on above: Result Comment: HDL <40 mg/dL - High Risk HDL > or = 40mg/dL- Desirable HDL >60 mg/dL - Negative Risk Performed By: #### Lawson BOUCHER, 93451-1 #### [facility] ([id number]) [facility], [address] [place] [address] Cholesterol in LDL [Mass/Vol] 50 mg/dL Normal <130 [facility] Comment on above: Result Comment: LDL <100 mg/dL - Desirable LDL >160 mg/dL - High Risk Performed By: #### C CITLALY, 04654-7 #### [facility] ([id number]) [address], [address] [place] [address] Cholesterol in VLDL [Mass/Vol] 30 mg/dL Normal 0-30 [facility] Comment on above: Performed By: #### Lawson BOUCHER, 15639-6 #### [facility] ([id number]) [address], [address] [place] [address] CHOLESTEROL:HDL 3.2 Normal 1.0-5.0 [facility] Comment on above: Performed By: #### Lawson BOUCHER, 65430-3 #### [facility] ([id number]) [address], [address] [place] [address] Triglyceride [Mass/Vol] 148 mg/dL Normal 27-150 [facility] Comment on above: Performed By: #### Lawson BOUCHER, 38104-2 #### [facility] ([id number]) [address], [address] [place] [address] No Panel Informationon 01-22 Interpretation and review of laboratory results Abnormal [facility] POCT Influenza A/Influenza B /SARS-COV-2 VeritorOrdered By: Dulce Maria Boykin on 01-09-2024 External Poct Influenza A Antigen Negative [facility] External Poct Influenza B Antigen Negative [facility] SARS-CoV-2 (COVID-19) Ag IA.rapid Ql (Resp) Negative [facility] Coding Summaryon 04-09-2023 Coding Summary HTMLBase 64 DxhfekybWGq9gRh+PGhl YWQ+ZS1BUPOpY29ctEWa rL8bX4KCFMtEBuetQSEP OPbWVoXnhfCaFY4njHGv ZXJu IC8+TQ1nETMcAjulnLVn m6U4wHO4S98iyl6pMVgc aJD8XHEpCiBpdgaul6yk xQo3ZOcyYyjjBqYr UMArkI92CPU6vH10Qk61 bHAxeSOfu0lvsUb0AbEt SFFdYFI7qTruEOqve5Hk YCYiR68wzWBvh1I9 IGNvbGxhcHNlOyBlbXB0 kS5fZJkektlqj4ybfala Pzr9xv15jRAgt4D6pEZ8 F5JdgxT2QDDhbVVj FlswySWSnU0jrliql7oq xefnFsUeBEViVFu9ZSm3 IIRgaTwyMlYaUO60GUZ0 XPGatiXkQ1HhBGPj bJwbOjK3l4K0Hu3BB8HF BvghF1VQOGNIFUcwsKF+ GO01yd00U7RkXtgeAgh8 MKCiSQQ6yTG8qY0r XLErWAjip2R5cWM4W9Xw xnUuic4iw6ncNLOuIPds S79fdNLdb4M8YBNysMR8 OBBxsTobNsJizZ63 Oyc+LFNgmMhpv3PvBizs b4ufh7uboFh3AaiwGDJh koLhoThfCFV8k5VmWy2s HISztXE6iFJ8cZ5k TpXfPdM3HUsvU664GiGv cTZgIspjO59iS4XzeLB+ ACJzRoz4MPHnuOdtIW1h U7UdZVKblbxpqVEo dCscTR4tQJTrnfceLETi bH8zDMMyX7n5LfBnNvI6 IPjuT3SxPAAwznqaPb06 bQ9gShZlWvE2CHrc Z9IamtD9ZMTwjNLdFHcw RCN3U16ba3L9WERcXEDh LNG5gMG8pG6wuWlfsnrh bGVmdDsgdmVydGlj NHdjAGhoX690EXCvzYnu PkNvZGluZyBEYXRlOiAg MDYvMDYvMjAyMzwvdGQ+ MAJuYSW9tAnoPSMq xWJrTPhsHc9jcVktyPkh UJ9lXDNxyfvhVKOgoB6r HHBcmLEnhQobIK5zMZZl fjtqy168KrJnVLQ2 VUCloYKoS3KmsH8dMgCw HDXuUUBeL3GdvOScYOdl J326FRbtEuB5UAFhllWq E4OkOEVpfTlvFfU6 n6E1Mz4Kc9XzhjqdO1St lYFaToSwCkzbDUc6C6Ao PjwvdHI+QQ35ZTDqKF10 PZu0PQT7rQkvNRuf ULQlM1UokL9nHaOpMQJr ZGRkOyc+PHRhYmxlIHdp ZHRoPScxMDAlJyBzdHls YB0xBy0cMAInVBRo kRgugZCsJjDkf3abKZHc CRqnJG2foLamR1QgbLB0 GVUlg3u5Oc58J78zF5Al dXA+XYEefEA5dIT1 bW0eXaZwNjZ7EFshW933 NdKezKPcHhkjy3vki2wf xTq2HfC8MGFqhpVlgYvt NAD8u1RfKh24M04b IHdpZHRoPSIxNSUiIHZh tFyrnj0kvT8zHz6+PGNv qGV5qHL0yI5cHyGwMvL6 RCkmU658WxUtaCSh Qyezp0xgo0dfgJk9QmRy QECjfkIryBbvCGN4u3Vn Wk29C7AtgQowq8KvOob8 bp24vWCud5C6lTN4 R4LhBQEwmkthjQGmnXbm GY0mGPNbuiegMRQmgD5j IPZpJ7q4KaVkBmS5RMus C1HhndO6ZLBxiDTn HYTjaZIHkW6ojjeem6va alsbXnPpSDGcXOi7COy0 BNTcdMuhZcYqOMJ7XyC5 EPI8wZAhrQ9qdYvg eedrfA5zEtl+OMF3sGQe dCGIRU5iHgviyHB+PHRk ACV3cHggOXkhWGHidB5o HWKkF1k7XfKoDdF1 AHlgR2IlcpA7NXAmlXPv GJBpuRYOzW9ojblui6wm niocCfZfMNBrRLq6EBe3 LWFsaWduOiBsZWZ0 GaX8LDP5zUSaxM1tqNli rwugvV6rTcu+QmlydGgg ANM6HAn0K8OzJjm6FNMh nLnsNK7kbGIaLKyo Gn3jnYxyyBdqSL6zFZJy eaedo690NwTnh4ovLHTf qXBtXXarUJO9Z42mn6Q5 WICqJCXqLXQ1tIQ8 sF9qjYmnyqenhQYxjJqg hhHrxXefPThmAGypB319 WJZqxRgkYeBlULf4Y2Od Xdj6OVNqvXhqZA1u mHRfSMakGb7tuMzwkLko EP3xPYPkyiczn303OtUq w2hiXGMkkRMeYUslRGM9 L04wx3G0WZJkSTXe BLI8nEW5wH1btKgsnafc bGVmdDsgdmVydGljYWwt RMixU839CMXerUuwHaVj cJh6W4MpGue7EYBm rFcuQG4dpVZkXVuePn2g iSxhcTpqTZ0nZTKeuhes y538MaXll3leISOccASk ZRzaQXH4N95hp0Y7 FVXnTCJuWPS0hEG9zW8z bGlnbjogbGVmdDsgdmVy tJcbBTbwCBxfS428YZCx cDsnPlBhdGllbnQg ASkeCVc4G0KlLtwroVJ+ FN83VKGtSF79pIAihCKz q0owfDf3GyFlUVXbQZK8 tWsfIMoav5HxEDPb M87ewANmd0T1PVWhyHbs rMQmXuYxdDW0kQ2tCWqh ldnyk5huarwcFimmv2qr dn25rF10C46jFKwo ZHRoPSIzMCUiIHZhbGln yi8tzQ2jLu3+PGNvbCB3 jAB8rX2gXSVkHiL5ZNgh T108MwKpeKRvJcvs n7mqm3megPo2JxJ0VZPa tjDhnNfdXIW0b9FaVe25 M49dLBlaOGDiHMOaIEEn DSSraIeszt9mbJ8p Ii8+JCDfwYQ5tOB0zH5p PtKeWkQ5QSqtN118DwPa oNZeTxdjA19tB7LurLZ+ THBoObf8MERsgBqe SJ7czGVzLCxqKx8wOCX1 EbCyPlBdRIywG9OuHRDq nztofdxatFD9KIEiDXIk wI06Iu8ubJvqPGUj tWOAwQ6moedcr9hdumue SqUcUUHqPDo5UAq2CNHr aVouCmYqEEU9XqM3LJA3 yWUnnI7wrAikdjip lY7dV2ZiYNWsotgmYo19 bA7pQvCnXrC5OCemQgt+ XO3CQuSWJ2wvPGrWAH0v TTwvdGQ+PHRkIHN0 fTxzCXnvVTNmcD7vUGZj E4j2BxNgPjV5YPhcT4Xy LSGsxsuyBu00eZ6oSdRi IkQ3FQiuU0KjrmG5 BKHrfPIuGUvpRPO9K40o j2P2SNKySUEsPHO7eJO8 zY5srJchxyfsdFZabSla dmVydGljYWwtYWxp L357FBTtrOccJtJqEwY6 QiM8Kew4X7AoTdp2UPAc bZesDT3bbVDzDLwtPt9i sXkuxYftRE3wLYEs lignJXXmlX7hUHLzsNFp oRdmYM4hTLPohymuf376 InQxSKB0MXGptABwY0Xk eL8mRcQtJBHfYFXf M5IxwCDqWMrmS164KKnf MmK0AQOofmKfF8RmRNQp iHogVjM8a4V7Hd83EBGI ZWFyczwvdGQ+PHRk QDF9nXctJKboOXHncQ8e OZZzS2l1HjDdLgY6RUpj T3XkVSGxsdcgWm44jF2p ZzAvRiV4CWjzQ1We raN3ZVBbpKDhBTbdCKI3 N72pz7R2TQIuKYWkQUZ5 iZR5xJ7eqMfdywgxqMJk dDsgdmVydGljYWwt QMkkT807NKCapNjgCqXZ TUFMRTwvdGQ+PHRkIHN0 xNheOIugPGLruT6oZDOu S4h3FeUoHlF9QCyu M0VwLDPakwmmLm27iP7t FdSqLsF6SWxxN8BlkaD1 BNLalFVmRMcrFPV4Q37y k9T4XCQmRNZuZOQ7 jCT1oT0txKcamfeguXXs dDsgdmVydGljYWwtYWxp O253NKLdgJzmGg5HLC48 FR96V3XdBhrkfASo bGU+PHRhYmxlIHdpZHRo PQebYSKsLiPauOojEZ1g Rw4rFYFrZEXrmJmviMSj OaZmw6nbAUTdRHim WD8wzBudY7FftBI0NRIn r1x7Mt19N81sR4NkyCI+ YAMoxIE9eLC3vW9nOsAp KcT9QEuqU840XuDv hDRyIugdh3efe8rxkCc3 IjMwJSIgdmFsaWduPSJ0 j8RmGq42D85uMLexQZAf PSIyMCUiIHZhbGln dd8tsI9wLk0+PGNvbCB3 lMX2vN5iWcToIgD7KWhw S502QlXnfBIeNypjH52j I4YbvQD+PHRyPjx0 JMQkkSmjLR0rnZVsMOil Br2tSQD5PlZvJaPqEUzu T8GrWJYabsmsidegpQS1 OPKcDEJmkF81Xr9t zXkfQx4lEHQyOKV6WXBp zAWmK1SuoK5fHsCfRMLl OEWbR0QgpOEkXTwoM416 KOjjEgY2NZMhrtLk B7YqWORfySpnVnV1i9E8 Lj9XwPnxkJMsOF8fVxBu VKw0Z1CnSou0BQFvqRqu XX2qqHQlEImtAb2b iOzlnPueMR8qXPLjqpgw k757PdTma1spSQDbkBKr SOyiTVI1E05pl3X9HXTm NCNsNRI0oIL1pX3q bGlnbjogbGVmdDsgdmVy mDygZKigSYrgH077LZBp jSqnNqOOVjz6F7LsQld5 SOWmdBkuAY9peAOf YPolJx5vvEkuaJneHW7j VAPfxutjk532WcQsr0yf VRTrkODfDGlnKAL3V10h n2K3KSOcQQNjIEH4 iOX7nV1hsFdblyvbeNEu dDsgdmVydGljYWwtYWxp T401LCXppXopBb4LPjt0 O6BkThx4MFFjmNus NJ8rfLQsXYqzRp3pgFmf cFqkDL7rBDHtnwpeg097 TwYoy1kdZRRwlFCpINzs DUR6G15ds2F9LKJt LADsUKS7cRP1vC0asRbg bjogbGVmdDsgdmVydGlj RWsjWXxoQ772XDQvlTnw PlBheWVyOjwvdGQ+ KA62kx59R7JkEgwoWoj0 GVYxOJI9bPB4yJ7zBYKy WMbob3P1eNY4D4FhjgOa dg0av3ezLMMyHCan Y29 (more content not included)... [facility] Coding Summaryon 03-26-2023 Coding Summary HTMLBase 64 TwixcvdnKEv0oJy+PGhl YWQ+HS3JKXYeF38luFRd cW1qE0VFGApOOgpmTCVI APhKSfZxiyGyZP8zaFIs ZXJu IC8+KG2pWKDhZyhihIOd n1I0tSI9G94gyq3aBHvh hGQ4HLCbLwTdtauic1gs xFa4WXecQlqpGnUa RSLqlA41PLA3oT76Ay34 qMPgzBZpo6lbyRu0JiKo FXFyBRG6lTcnXXinh1Dt BYWwL76nnQGri5Y1 IGNvbGxhcHNlOyBlbXB0 xG5xHJohztpjd3djngoc Ccr0gw73sOWif2L0iIX3 D3JkheE6OBVunVLq CdeafECCeH3clpiej1bz aqwuEaJyYSIiBCk2XTq9 QZVjnTffYiVqGD40GAC9 DYBxgmLxO1SkBQBl oOlsCmU9r2U4Xd3BR6HT EkxeA9PKRXJRCMadbRT+ MZ47qk31Z5ZySafiJqi6 NEZnMYL6dCE3fY1v HITeZUksc9B1eWG5O6Rz gyYjlp6oo5vtNIDkIJro A41akRHrc7R9WBYnsZD6 SHRzoZcxCgAnsR83 Oyc+VOUbjIcaa2YaUoqe f8rpi0lpeEu2QhgbVDVn iyDezQxoBJM6x9MlTz6v WQJzeWN1lAI6cF9n QdWeLfB4UNujK064AmMn eDLaWnlfJ97eC9EqaAC+ WVUeOvh9KLGixPmyXE1t Q5YgGDQftjviaECb hSuwNA7jZICpooziRCCx jT9oLLQzJ9b3TqYkLsB6 YVugW9UoEHLwovvwCt12 eP3gBeRbCiO3YQpy H8PwxbU7BJCnhYYkSSou MTB6T89st6A2IEGaPYAk GFD0uIX2pW5lbQpcqnis bGVmdDsgdmVydGlj UKaoWIxwM059CKPijKme PkNvZGluZyBEYXRlOiAg MDUvMjMvMjAyMzwvdGQ+ YOGaJOE0eYeyGZLu zNEcKHohHq2qkTvhkBxq SZ1mKVOhhyhmRCKdkT2b CDHbnUEurTikCC9vDKPc jmmsl498AtQmKCS3 ZJJlmGLeG3KrgC5uVtDx DQQgLBPrZ6WgwTLmJBoa V503GIsnCpT1BBPmbuNm M3ZgVOQszFcxCzW1 o2U7Lz6Rz2ZsehyoR9Kk zGRqRcMsGtqvGUg0E4Ol PjwvdHI+QX26WTUeWH87 MHh5XCB0uTjgDRbl GNTjR8GflP6vOvRoEVJp ZGRkOyc+PHRhYmxlIHdp ZHRoPScxMDAlJyBzdHls ZC5rHy9xUORaNPPu nCwtqMQjOuGoq6jlLSNy BSbwMC4zqVegX1OknLY1 WFAeh1p0Ux07D45fF9Ik dXA+UGPmfIU9rCL2 zU3mObTqEbQ3XMzkY891 OoDrnSJhSpkau4pay9cn aVu5HzK4YXMfksAwcBpv PTG5f1OaIa75Z03l IHdpZHRoPSIxNSUiIHZh mFtmvz3gxY3tMi4+PGNv sTD0qZQ4wO1sUoUaUwX0 DXhhG672NvCftATz Hkdua6hkx6elkOq4TeWs YGHozoHesXlyALT8g5Sl Rh15G9OnpGsey5OuWwa2 iu20uMNzt4R6nLI9 P0MiBUFwhzzraFFllRhp KG4vPHGxygruXNTyiE6d ZXOlG4r0UrFoFhR7ZBlt R2ZsvcK4BQJfkIJi FRVncMFSsN2mkglxf3aw udwgRuEcJFSkANq3XUf6 WIAqhTdwMhFiYQQ6NrV1 BVF2uWIcvK4naJys qoorpK7aXzn+QVM9jEYr xJMIXP6dFkqixIV+PHRk LTK1pNbnKUjpEUWvfF6m GOEvY3g9JnVbJwL7 RZlvI2EwevM3HMIdiLEw OKWztIZDaD8yyjdup8xi yupqVlVeZBRpBOn3VMn6 LWFsaWduOiBsZWZ0 RxZ2IHG3fRQoaH8ebNjk gborlU3fPyx+QmlydGgg LTL0PAl0G3QnBgb7JFDm gRieGC9vaMGrKGqc Hg6hnYndwUvyVU5lKMHy uktdt660HsDul2ywTWUz wKWhKMbnOCD7M23fq9J5 WFUyNOEzVHZ7kKC6 iR8zjJnxpovafCPlgWcr iqPzkLibLJxxJHvdL212 LWRonMajLsZzZRw4H5Nm Lcn3GXQxcXwdPI8h eUYaHYhvGn5uzYwjaPnw IZ3eQBCdirpjc679BuWe k5xlKDPqqNClBTgzOVB2 K33en5B8YZUpPEKw HUK9zRA0kZ2gfXdrnafp bGVmdDsgdmVydGljYWwt DQrhZ048JFSgfAwmOfRa mSd0E7TcFzk9RXJb xQzkRP9loLIsWSueQe8g fHopmJaeAE0xXYOisdks j903IeBwr8uaDFDtfGZn UWmyDUI9U69wu4F1 SVJtNIWeCPJ4cQG2nA4i bGlnbjogbGVmdDsgdmVy tUtfQJqhTNqfP734OHNq cDsnPlBhdGllbnQg VNlzXIr8Z0ZmDuubaEU+ WJ32ETJyTZ80vACauGGo z2xyjRj9IgJvYSNgKOH9 dAuqMFsam0VlIDXf J69tfQSsc0D6RKBbkWeq iYLlXlImyRT6lY0bYLku abkog4rqtafiJiwtj6kb xq91vM25Q93nOEuj ZHRoPSIzMCUiIHZhbGln dn1quM1zNd5+PGNvbCB3 nKV3vB1dNMMkCfC7DKbk I864ApFseDChYgaz b7jhv9kouHz0RhX2MQYb yxParMkhUWA7y6XyHk51 T52bAMrrQSYrCYKvDHHu IENdiCvlcx6vsZ7z Ii8+AGZnhIO1pMS7vI5y CnOjDsM7EFdwL204WwSz oZPtInsgG56fS7GgpMU+ VLBkPxq9NGFacFub TX3nsPYwZTilDp9wKAK7 GcJrEnHaIVcaF7ErVRWv butzeliqnZJ8LJKcFWBl uR21Yx3jvMafLUOl wKNVcN9jpvasv6rpsxjf GgQwCEDwHSn5RNw4KJUn uZvgXnMgILB6MsN9QWG4 nGUjeT9wjImnpbru eS4lJ3XmADQhmfdxQy47 zL9tDsKwLtL8YPxxNfu+ JQ8SYiVMB4dsQBpGDM0u TTwvdGQ+PHRkIHN0 cZaeXQfhFIUbvY0yTNZs A4w4EoJbBfE5IEtaM5Gh LJUnnqabRr02wK8mDjKz JhE6GOgvX7EvhlU2 PEKirTOuLNdxCAI5I53c p2C9HOTtCMWsKXP3vVQ6 pU2mwNhnuzeerVSodCwo dmVydGljYWwtYWxp F745UKLldDhaGnYsKsE6 AxW6Wwd0P4NoBfj6IMIa aBobWT1atXYzRLrjIk5l cEuehZxtPU5bUESx rtayPZSisG7jUANpuQNe oTnsTV0uSSPfmhetb415 HnGdNFN9ZONmdINwU7Cf wF3bTpUbZSYpWFTi Z5YklMZwIBmbL955KDua ZnC0CZKcmmMiS9QtTXIt dNbyWdJ4f0D4Eg36VSHP ZWFyczwvdGQ+PHRk DPI7gFnhGVocZLWejP4a POJwP1h3McLaEgU1AWis Y6XqLJCpbfdaRi46iJ2v MrMqRwX3LEtgH1Yf puI9NRKlnDFjWYfeQPP8 Y04el7K2AYLeFCZfGZW8 hGM1cS0gvAqehzysyFAv dDsgdmVydGljYWwt GYdzC161MYUbzYroHgKT TUFMRTwvdGQ+PHRkIHN0 mSdcOAqnJCCizZ3dEGKh C1w7XoZbBbK6RSta N7NbYYCshwgmIi13tJ8v JuVqFyL5KRshW3LpfjT9 ZYUkeNPrLMvhPWF5O83w u1A8DLKnOZJtGPV4 lKT0tM2wuBxzdcaeoPMr dDsgdmVydGljYWwtYWxp R673FVJlgRieSz0OZP93 BY05I2ZmNlxdeLXe bGU+PHRhYmxlIHdpZHRo VFztDLHqJzJejMviUE5h Wl9jJRXmVWIevWhneKTx FgSzy1yxQEFyYCbx QR8zrUinJ2HorUR4MUQw y2o6Fv13M70xC7EydCD+ NANbrOA6gZO0vP7rFoZv CuN9NLbyE724BwSt xHBxYlzwy1iwg0jxlLo2 IjMwJSIgdmFsaWduPSJ0 g0QaHn55B18eHWgfXOGj PSIyMCUiIHZhbGln ah0biB5uJf8+PGNvbCB3 cCJ9jR0aQuJcJtI1WNkt S394EpNsjFGgJsrgI38c T5PniGW+PHRyPjx0 HHMwlTbxFX0wuYFdCQsq Vc9zURT0IzMtObMoVUlh R9XfCGOtowubxdefkGW7 ECQtSRDiqC96Um5o iAfiAe3jNFEjTNP7YALy cIUlE0LfdT6vExYmWFCw RUNdL9KstFFrUMnjD826 ZSwlQpL1FFPwptBy G0WyAARjtLhwIaT8h9J6 Ot6IzUqrrMLmTX9sUoAz AYz9R2QzExy3FSNnfOqn XW5zuOMwSFsrJy1b fBehoSsrHC9rXWOfgdoi r367MeEtk9zjXXPckJBl TCxyHTM2N01vm7G6YDCi ZPYcVDB1qWZ9cZ6p bGlnbjogbGVmdDsgdmVy zWliOBvxJItgM719MLRg sIbuRtCCKtu2I2QpAni4 TJUlnFutKY3qxYTn ZTscJb1tgZeeiVfxUT3l FTTosdzul646XfApz3nd RMIolGJzXJnmOIG2X61j z0N2DZIeODLyQDV7 yLC1xL2rvRqseiffmYCg dDsgdmVydGljYWwtYWxp O701UWFqvVdvQz2DVzi0 W0DmPdq2JOCtvQxb WN0hxVKfRYzyWg5jaZjo bBvxYS7aGLVqcnlmv648 GdIuy2qfNBNntUNaZSjt BLL2G76pt6E7YXGi WLJwNOO2gUV4lF2obPoz bjogbGVmdDsgdmVydGlj MIvyJRuuT614YVAboVfu PlBheWVyOjwvdGQ+ KG05zy22A4OlXutnTvz2 HDMcXBW6sSE3pK3dLHXk NSsyt7A7oKP7Q7LfmeFu zp3kf3qkNKHiKXxe Y29 (more content not included)... [facility] Coding Summaryon 03-22-2023 Coding Summary HTMLBase 64 TewzjyutGCt7yAu+PGhl YWQ+OQ4WDLGlB37xqTXx oQ7NQ7cAKP2OFAEIYUIM DF3DWO8cnNA2KEamP8Pz biAv FweitVLmWA74MGm7FVB9 oIxhYBweyV8wgOPxZ7r9 KfKxJX67aU05QRcsVZCl IzT2BkFnjdkjzGMa C6olEeNknZFgQou+PHRh YmxlIHdpZHRoPScxMDAl JgVupHbfWI3dFr8nNGHu LWNvbGxhcHNlOiBj c3vmUMIaRJlgLQ1bbOyr N1SvtKV6YYGhd9f3Ya83 dHI+DCLuNQD7qUjhRIet w870AnVha9kwHNF3 aFFzEZoyQAJ5K99cb5V4 RDUtTSOmRRF9dJP0zS6v nXpfuxcrD8KuqYCkUzB0 NEY6oSFpzX7tjAaq fdxhoA4qTdj+O01HWV0R ROMYYJ7EGkz9C1FbPqfx dHI+FU15QDGdLH64hIIl uXNfw8yklZd5AyMr NHWpFXR6xSguHKphg2Jg WMGyS04vsFKgg4Y0VGHk bXexmMVlZjGbsEB4fU6d EXpcgnnrb5gaxexz Gyswy0uedo61jF56N25l HWjmKEGhMQF0WGXjIAQt oLxlih5crV9hKq8+IDxj t2qlv6fubHj8WqDk GUKyweBtfWplEMJ4b7Dm Ia42F9FhhLbyd2UtHtm8 rs28wUNus1I3rXW2GDja HDJqkL5jWDblKbG8 MYAgSrOoiW83zVKySKlw Ti3orJkjcKngVD4pJMGg ioypQSMcbN4aVDIdfMCe xSsvHJ0bWDZcuefl j899NgHnPQJ6YEWvmAMy Q5ChsQ1nJzXkSSOeSCDc V0LcqFZfCNukW820SHlh DgF9YNPwseZjK9Ob IHDltDiuBlJ9g9U9Yw1T q9FaejmmQSW2TRxlERX9 CbA4ZeNcQcX0Y2SaVlt9 MZBoxIywNY1wR3Ow SVSqkfpjjffjcEE5CMRl UXJphX34sIXtFRvuIf8o u4D5v375KNKpAPOamQ53 Lq1rdBufNKWppSCS vC2rdzapv8mcqqkvWiPj LSGjRJf5SKd8PQZbeIbt WjLmSXW2KuD5ECX1oKNz cQ5ucNzdrjlulR6g Oyc+B68ofA6nMEG5SGS2 ganjYQCowmXqMP03IT49 L8JdThuyfKSxkLW+PGRp mxPigOfzMB2wDpWh p5wci4TmZBfnR3HmUQWy PGewYfp1CMYuOTO2fLG5 oU0qPRImUVhha4J0qOZ4 X4EtiqAhgu0oh4ch BCQmUXzjH93sxNEnb1J2 MJZidPN6STZxiKaiNhSg yF45Rxp+NQPpgPxtv1Am Jztaq8uer6ibnAy0 IjMwJSIgdmFsaWduPSJ0 j1HkYn07V40qYPdiYPOx KRViRKKtADPfjWxqyq5d lH4hHl3+PGNvbCB3 sCG6eA6fDHQhNpG7FDti U061QvAzcJAvYawsi7lc r5txaRk3DxRmWLIwnwYa yCmtILB4o0MdPk18 V45jKByeXBVeXZEgKGZp QIVqmZetzg1vtF9qSy1+ VA2sf5vdfn77pU03dBR+ CIYuYBC6pOiwPOjm PDUvyS5xJNuzZhK7QZFr GxKshV05eFVuUChaIf0v zImsqCauXC4uJAVymeiv z198NyYjo5lyXZBz xHYlTMumRXR5K11zj9E9 TBDoXCKdRQR9jKI3tY4k bGlnbjogbGVmdDsgdmVy uZdtSBhrOCfmT158 IHRvcDsnPlBhdGllbnQg QuWbLBe5G4UxAzn0LIQc yXmfPV6meWEeFNrjIx8d bDzyqPtlBR6hLNXv aenpi929IqNuo8guWRCk cQUdXMcgDWC2K54yn4H5 EKFwFMSkKHE0aHS0gV3i bGlnbjogbGVmdDsg szAqrVboCJtiRJnlJ355 IHRvcDsnPkJpcnRoIERh vDO2AS42DP22sURuz0X0 uOJ1I5ZbETZyqwfx wunpnDB2KCEwJCUqsK64 Fs6wuZyrMw4aBLBgLWE6 RBAuyBNtF5UcaP1nRvTb NGAbHEMrK7AlmHVm EGonK042GYnvMxN3MJUl qdZyL5BxMEMvqCfpXkS6 c1A5Qo6NZ2P7UX01ME51 bABnb0H7qCY3O9Xd EOVshehwzfhulID3KJWr XPPwqP27Rt5skVjdAs3z VGFrLKN5ZJBrwHZiO2Oi qD7gUaOlQZBbBVOk A3NbiBSrYWojA028LYgl UpQ6APXgmfOdX3PyDQQh vXxjYvZ3u8C8Gr8KJWd9 KJ80QD09wCFmx5K8 pSF1L8IfKMMfszaagmtd zSG5UXEkHPPkyF88Qs4h bZfdFl1bWTHhVTT1QVQl aECgM2WhxF4dTtAs QCCaXOVuN8TspFNnYBzi D657ONfiKtF7BGTqkyMt X6BmJOXjaMovKoZ8g0R6 Tw7CSGHiDU74KKJ1 iWJ7XN33QI59T9ZfXqux dGFibGU+PHRhYmxlIHdp ZHRoPScxMDAlJyBzdHls HE4dRy8vWVAyAGDs wAsxlBHjSuVrx4jkZMTn ETypBE9voIonM8PagTZ0 RHNpe4u5Vd00A01iQ5Zr dXA+VDAefVX6cHN4 bG4fIvIyYbG1PVxbJ498 HbIpyFHuFcyrn2ygv4wu xAl2ZqO0SNOdqfKydFxy TBN2u5EgCq15R20j IHdpZHRoPSIxNSUiIHZh dVtwzj9mpA8pHa9+PGNv sKS9sZR9mJ7eGlQgEgO0 UTvzI956UmMokUZl Rlmya3qcg6iqtDq2VxJn CHPuyuJgoDxwGKJ7n8Ry Zu98N3EopUqww6PeQmo4 mx81iNSss2Y4oEQ1 V7BdVITxtkoxfVLdtDvl QF8sGQTkdqxsGPTxiL3c LMDsX5l2MhWbQqV6GBpk V1QlwfC1ODGqnBNp XOgkDFL3C97pp9G7GWSk FVRwTSP6pWY7sP7gxYrw bjogbGVmdDsgdmVydGlj GOlqNJyuA593CQGx eLypWRQtlM6rWGKflNNa rCnhES5rPIGmfdmjRquO KKLJQ90TCTTYQ7FUCA90 U6WcFxc3BPYpuVuu TL7liYFmOLmaMn3ioHdx yJmzVC3nWLPnilzlJPLw xS4kSETevEAxiFxnPY0v ABKbohfln028XgPz QJA2ULBjdKOqQ4EvgV9k FzLvYPAxEJPfE3GnlZPb WLveS302AXktXnR8UMHf lbLdA3TuEFXxqMqa WeC8l4D1Yk9gCt9cKo8u VIC9KT24WU32qQXfa9A6 dIP5U3AhLQMshchkzqsd uNZ8HUHaKOWmbY48 bKIeLZtdWd0ev4W2e619 SYWtAIYsqR97Zd5enVpb CTVvkKWZoO6xlmtdp4hs cjogIzAwMDAwMDt0 EDb1VFCciEqiEyZhIMA8 PcA3SUN6cAEsrW4wsWmp ybmrxB0wIkj+ODQgWWVh csB0W1WtIgj7MEMi xVkuFI7gdTPdMGsrPf2g pXpscVxeUY8tJEHvlhih BOCdiN6tLVAkdYEowOxw SD2zJQDsaysje671 AzHjJDK1GGSshVZbS3Pn sU2dZiZvRPMaJMMwL8Uv hHHqXEhqJ026IIzhMdD2 SPMcvrQuQ7AaHPXj lCuvZlS9f4B3Oj0KZD9U RVS7E3YsMkd7MCPkvQck XY4jlFQlOApxTe0zmCdf nBlbVD1aZPJkefch DUJqjM8iZDLbaFQghRcu WJ1uTJSmpknpe091GfIx HSL4DGPsgIIjL3QthY2o PzGtYNFwHYKeM9Ey fJLqNRmbX813TFdnZfI0 XKHqurVzX6PxREOwqKrx ZuB5n7W3Mq9PYPhakGF+ EB76qh76Q9YyJnet Fwf1DEOmLLE2vRM2hJ6i MXXgABlzp8K0uMX5G3Ev lrLzvb9aq6gsMVPwYNck H92ziZGhi1D9WUIh jUY8UAUmnEdyNqSuiA36 Oyc+WCCnjQgbk1RxNgnh g2ryy9hezNi2CrMvQSAy gcIscRrkGKI3w8Tv Fj47L64iVOhbSOJqIYHh CJSeBYYntEgwbr6phB5d Ii8+CCPclPD3eJA7cL5q JdHcQmN9TQknY664 ElIywGKcJeqet0mlg8xj jTn4NdDoAYMidaJxrWqv GOC0r2YvWd27Y0QzhShu g3AxEck7za73uRNf r5V3wCB3N0VtUIYblmey rKQbuXdjDO7nRHDezgpk UGOrvZ1xPVTjZ2g3WpCr PzF8NXssC0QvvoL9 ILCecDYsVIUsjGGXrW5s kljic1fleqesMkIaMRIc PYj0WBl0STYcdCngFaNn SAU4YsI6VXD3zZHw uC9ndUsjegaviX9lIcu+ SNw3h1hpgGYxXV6qrSN4 FF25WS70tGYek4D6rCV1 W6CzHKFmzflkajoa iQP4AHQiUUUfiJ56Qi8r eMxuCn5aKXFcINN0ECRk rJAcE0YpqP8vTmPvSIIf OHYxH9DyyRJmFOpw S809YAtmXrE1HNYjagLw S4YwKCDlhQdnRsV9a5E3 Ej3YNY24LB45WR95uMMo g7K2dXW6V2ZsNAWg ambebrnifID8ALEsEHGz zF34Ed1byLykZq5jXFPc GBQ8PSZcsFLkP1JecC8j VxVgKGWgZWDuE9Lk iIBcWKupQ825WJayKvB7 JDQzxhNeU2PvRQWtzUlt AsF5f4F4Zn5IWt60OQ46 XI96bENpd9A3wRJ3 H2IxCYAeeldftdgqfKU1 NWXdXHDdsT78Og8dhNin Mj0zXNUtXOH1FKCraKYp Q9BidV6lJqNiJNNn DFXmS7VrySFcEEjuM016 UTrhTfU9CSWrnmIvN1Hk LKSmbGjaNbK2a7I4Xb5U ZOfjrcx0X5LvWvde dHI+QN75GKPuDN82hEKv zJJzh7tkhCg7AnOmICXs XHS0fChuEXbnb6ZrZHKd A34icCVyp1R5OKPb bGx (more content not included)... [facility] Coding Summary HTMLBase 64 IstsibzfMAt8oHu+PGhl YWQ+IR5NGCPaJ56vvOGr oZ5AR8vFIB4NMXBRBBVX LZ0GRY3znVS1CHieH8Yi biAv MddbuRFmGY57DLa5VTU4 eBrbYCgjbP3vvWCwT7b2 BePxYI92hS26ICgcCHQl ScO8PpVgxtqyiVSo F6pyEqYkqOAvPxc+PHRh YmxlIHdpZHRoPScxMDAl PgWwhSflYD8iPt0kYAFr LWNvbGxhcHNlOiBj h7teOVInGDiwRG3ktHnk S6OyqEL8MPZfk7d5Go05 dHI+HDUxLBF1oAnjBMmg l742GvNnp8tgJJM0 gNKzLJqmJIO9X70oh1F7 WVQtJWNgSEH0aHI0zT0b rToveftpR9MixFGzSgJ9 AAV2iCUkfE0xiYjr qjbuuC9jDym+A62AYT5G IPOYYT6VJhl5P5GpBbfj dHI+EU11ABOiCD75dFFb rCDdm4yxbHq8IbJd QBXdLLP8lEwbIFows2Xt EVJxT59akBQwr4A4RZKv gVrxgKTpRfLrwEB5hR9y YEpbiulnh4vsgzdt Tiicj5ksho58zY51J32r OPsyZGHhRBM3LXUwPKNr eEdoyt2zgJ7vNl8+IDxj z1mlk5ydlTy8TaGs COKgwqRewWhoQES4y0Wc Yv19V5KtcKjib2LcRfi8 xf18nWLzc2W8rGV7SZfp OXUflV6nAWsuNuJ0 OZJhLePniH71dGYwWEfm Wn4hrIgguDckKU2gFYQt ivvwTBTioK2wPYNlzDRv wLowTW5xSBUnquqe d621SeSwAOF1DIWqsAAo T8DcqH3rJjVbYXEpGXOv C3IphFHaDPyhR355HAfd NtT4YSJhquLiX6Hm FHIkmSjzKyA1f3Z1Dp3U d0CzoxfsGUV4DPvyUGQ7 QxK0OkCdVsZ6Z8YzVpa1 ZDJwfFmjJQ5yE5Cj DCIdkslzfjcfnXD2ZAGl WNSttG64nUHvSXdbCm4b c8M8e330XGFvQFWscE51 Ts0ooKedGZSjvYAA kX3wlbgoy3njjineNiBg JKYbFJo0VOe4FIFryNul HvOpEHC7YkQ2OWO4qKQy cT8veJdnfirjnB4f Oyc+X07ppH0cMYO5VJO8 ulwsKYZftvZmBC73RG23 X7XwZwtojUEymLF+PGRp brYpzPjkUI7wTzZx b5ako0ShYQoxJ3AiSPYy NKdzTaa2BRKhSJH6zEI9 mC8aEBVmXKnck9E1kNO0 J0UxwoVjxy1cg9jl IZSwYTtvE72jvMLfm1V2 LOSdtPR1VXOslXhcCyZx zE28Xxn+REDshTznh4Uq Unwvb3uhx3ycqOa7 IjMwJSIgdmFsaWduPSJ0 k6WmRd72R97xJHthNCYc HZQcZWSrXWTaiLfqsi1w wI7aQt7+PGNvbCB3 yXJ1yP3hMFHlIsD0BPek R061LaHaxNLrPzrlf9xp m9omfGp4DzLbEQCivyKo uRscKSM8h2TxSo80 E59sNTauLOAhOYCvAJJq PPKehBjjga1dwO8tFh2+ JR6uj2cqbq35hZ91zRW+ PAOdUQJ4mEnhKAzr YHLdxG3rPWafKgD9QZSk XbPfbQ56gNLcCDseHr9p iUlmdRpdEQ4fOIFzpyyx a552EwDfk4qmEANr wUEhWZtjNRD0B53bl7V5 MZCfIOMaRGJ6dZQ3jT8k bGlnbjogbGVmdDsgdmVy iZmySHybXNnuD184 IHRvcDsnPlBhdGllbnQg SjNnZKd1K1FlUad4XOJb dLyqWN3mdWHlXPtwMj4a gEchoRgaLR8oTOZh ehspe041UfZmk5kmSQBq dERxRRneLJH3S20mq9K7 OZPhWAXvNBG7vPO6tP5i bGlnbjogbGVmdDsg yaEhfNyaRShhBTnbR214 IHRvcDsnPkJpcnRoIERh aPJ0IN31GU75sEDty0T2 dSB7I8HuUZCfxais mjyhjWQ6PICaXQYqiT15 Xp7laErzSd3hWJOmUDM2 NWGinTLaN9WjoU3qDtGk TEPsWCVpW1EqxYIk QPbbR979POxrStW1HIWl cjPgR5FyWXWbyUyqJbL7 n3Q6Cc2AA6F7VI97GJ60 kZRpa7V1oWI7Z4Lk HUBsttibwvcimDF2QCGf XBPhrU10Qi2ueVduJr8u KYArAPD8OUWouEDlE5Qh wO1zElYoQLGsDTEo K0UviSLkCBobX554BVkt DaO3CCSfedSyS5CzRIUl fWuaGjA0h4K0Cz8VQWy8 WA58XZ18tFJuz1H0 nSZ7A9MiKIPxzrmsoltp gCX9RCUxJMEjpK59Fy6x bVnkTy1cXOCiXUY8AVPf xGIqS2WudK3rYcUe EPYjZOQaN3DoiGYzTJyy T998NSilRoT5DVMoayAn F5LgALVuvQysHeM0w4V8 Vf8QHRAqHB38DIP5 lUV6GZ36IB47Y4JwTphh dGFibGU+PHRhYmxlIHdp ZHRoPScxMDAlJyBzdHls QE9rLb1mQVUzKXVa zAyvgPMlUjXgt5vhRKUq GCvqUW0xvOazY8SeqCQ8 KAQua1w8Rm05Q60dT4Wn dXA+KFTihID2pXJ1 lO9kIaIuCkB3GImfJ421 JqWqcJKxUvnzs5ktz0vi kDm5DoN4TOTdorShrPoj WDO2j4LuEv24Z89d IHdpZHRoPSIxNSUiIHZh iGachx7ikP3jGc8+PGNv zFW7dLV1mL2iIkZdCtG7 PEbpA303KvYezAZc Yjxyk4kxu6mkqJc2NuUd PXDzuuVynLaiPRB7a6Ht Xp62U3DscSqdp2CrBnm9 hy59jIIki1P3pMO1 I2HoJLVbwgkivPFspCuh OH6hBMHoukzcRGWydC2o HSLlR0s0DqDnIuX7MDds B8BbjlN1LCVugAWo HHdbCSE3D91qj4R4LXLi VYSfLKT1vFI5rJ6twArf bjogbGVmdDsgdmVydGlj OVnxPHbmB724KOIy nLvnVCDpzA0xBXWzvUHn dPgfNB4lWWUrjzwwCngG YMBFU85PYJNUY3LKUH03 Q6KwOwp5BILjnPwy TU3utDVeJTeiRx1vhFfw vFkfYG4cBVAeskdmGRTk yS4xVVBikKIgiZzjFF8l IKIgafrdj802LzCu RYD6NHWgxBHtC6YjjB6e OjLgAWUpVNOvS5XyiPCl DOwkU647UEulGsA9HJOl dhHxQ2GxLJMkoEvh TrP8m4F1Fz5xTk1hXv3m QRM8YC71MS13hOJqp5S1 oSB1J3KcNWPfzgmgsxrb qZV7LDFgIYPzlX02 wOUiYKeyZn5sn4V7d367 GDGsLOYubB58Mj1cmZkf HRXszVLOkN1gmxidv5mh cjogIzAwMDAwMDt0 QRk9BSFctOrzAkUdYOE9 PxP5VCJ8eZDklZ5svXoc lwpctB3cUvm+ODQgWWVh osP6P2MxUfx9RZNi pXqrFZ5nuTMiGLusFd3h rLvlrLbyHJ9xKSPytbzl WKYzeO2fHUBzkANaiEfe JM9vEMSjtgkmt082 RiDgOIO1ZTNzsUFvO0Ou hR5zVjPyUYTyMFRbX1Cx sBYuTGnaL011IGwzJxC4 UVSilzBsO4CmWWKx nBasYvX1h3L9Jf3FLB5S JHT9X2YeKgh7DJXroHmb KZ8ewFBxIRweDi8ubFrg aXxfSU8zDXDoemfc PGWbiV2uKDQvwOPpkWsw WP7qIYQejikaw540XvKk DKC4JKZtjDFnX5VyrH7z NbMfFINjEDHoL9Ps wIXrOEixX191EFwiIuM2 MCAgsuPgW0UlETIorIio GsS5f6R3Jn4VIWwwbVN+ XA56jw11C8VsKhgl Hvw1NDJdYET3oSE7kF4e BBShUAprr3A3dMD4S9Wa wlXbxw8ay2qeGACnIWtv C94gpGFle7T4DIEk kEC4DOMdvKkeRpVqcT10 Oyc+YWTghXgzx1SbIipc d0nyp5sjyKe2ElPsDFGs csRbuRteSSH7l7Ef Mr11H13qCVggUCDnDZJz VYTvFLIqvZdbvx2hqW0y Ii8+KFLviSG8tAV2hS7x KnVkOmB6DUqvT231 IwAzgWGfOwajm0yiq5sd bGs2QpFoWTJikaFfdQnc PGC9i4OrAy35U3GgpQwq f4EwMpo1vv56iOSb k1Y3mZF8W8QhDTXstucx yWZamYerIL6eRISwpgff HLJfyB0sKVYoT3i9PgAl VfQ1YTrhO1DjkyZ3 KGQbfUZwJFOcgOURjB7g rylyf1wpdgcpXzHeALDs GNg3YDl6ZNQozDmqOqAg RBI9JkP3VOE7sBJr lY0rnSjoeamjnF6tIkb+ BYd4j2vqzHJeFJ8jqFN2 KR12KY90bROor8K9jQI9 K6BdSIThuneghfbz hSD7EYQnPCWyzN93Bm1y bVhfYj6sHXCxJNV3REUp gWTsE2YwmP6sXaMwNOCo SZOtF3XraLAxVOdj K360JYwhCgD0IKQaprFd G7ZxRWIpbDvoDkF3z5U1 Jo1JSA69FD44TF63dZJi u1X9aCM8R2IhZJUj jmqagcgvaLN7HUPePNYj eR88Qy0xhCilSx8lDWDp HPH6MBQccBPmJ4LoqM4a XxGsMKEyLZCpN8Rk sNOxQVbjU046JZxwWsQ3 AIPhbdAaS4VnVDWkiXdi XrF1a2E2Ud9LLs39OK58 RT86eZMjc5Q8lSW4 O5UxRTDyuakmhqyskRM1 IVYvWZGioG05Zq6ylPis Tf1vLBXaZXY7ERLfgAVq Q6LvgR7wRbIxSOXf VIBsB2GzxDJlSMezX542 LEahScP2CDLwkgFmE2Jj OQXjdNdlUqK4v0E3Qs0U XZnjdpe3D4NsYtgx dHI+TK72WXIcVH57oXZr gZQnt6advVg3NcUaPLSl TKW9wGhpEOnbu7OjCKMj K66ohXHlj9I8GYYw bGx (more content not included)... [facility] Coding Summaryon 03-12-2023 Coding Summary HTMLBase 64 JgwcwjfdUGc5jGn+PGhl YWQ+JS6NGDXmH33xaIUm aJ1NS7wXMV5SMDQPAUAF HL6ISK4dqNW1SXsfS7Po biAv RnfvdVUvDE13NCe9BNX2 oYrwPKiruU9laEOjP5w3 GtRfNX45rV12AXbiVYQe OmW4XgIrggtipFLd M1gsIwDthHXlGjw+PHRh YmxlIHdpZHRoPScxMDAl IfSlmKmeZU3qDj6gKKSe LWNvbGxhcHNlOiBj q6hqDGXhAIngTH1idUsp Q1XedSY8QHEgp7o0Kb14 dHI+AOEkCDT1kKmjJEhm t649SvGcp9tsLZN2 eBJfSRpqQBU9L40ll5I4 QCKvQDGqNRF1lIE4uK4h uZcrlfomE2IpaJPbHkA6 UGI1pTGazD0quPgl skzmrJ5wUdj+U78ZQL0P AASYYH7TVxx2B6CaMwrs dHI+LI67OFQpMK93aQQn kQTbj8wguYw2KmLu ABRiVNP7gElfAOtfm7Kf RIWzH53haDGtz2A3QMIl yOibeWPyNpHusGR8jG8a LMkmaazyw5npeuzw Ahmtz0jnup41mS89D90n QRzfSHBxQNR1PUYxWUXu sFkrrk0vzD8dQg6+IDxj w5ldn3mbaIs1MdRx DAMpetDvdTpgNRG8y2Lx Bk01P3XdyNxye9QyRjj5 lv35fXLiq8S5nBJ8UEiy UDOguS5uZAhiBeY4 WGBlKzQsoL23fRBzLWwk Re9wvJwogMlvAL2hZZXd tauiDYNayJ8iIEUopAWx bZgpGH0aMGLgspft z257VgIsMPM6GOQsjPPz V7XakP3vQjVzNHIzEIEu M2ApuIQpODaqK833WYfa AjE7HANbzzUgI5Vz IJFtgLhnNfZ1f5P7Fz2V u8DsevneTDY9BInnYHZ7 GpR0YxByWcC4R3DiEqv4 UVHhcNklCI3tM0Ic XNTdlvtieesvzYG0FMQn HZQlfG26aKDrIIeaRg2d d2T9h156KRIrKCGswD98 Mb1yxTqqAAPphGZT cU9gxnusw1dipkyhVvEe OXTxKRb4CXx9QZMnhNuz TtXhPVF5VpF6ZXN1fJZr nU8dvTpcpxgmuM7y Oyc+W23daE5lBVI1FRR2 oerxDVFtpdWfZD07MJ98 R5RaUwyopVVazJE+PGRp zoKmeOczYI2wPpTd g7nvs4SsJHklC5VyKFTn KYglQrf2RNVeAWM7bLU5 bK5eJAWsFDcsa1K3jHB0 D4IzjwTyyd8rb7yy UEIjZIyiA44dnLQzj1W3 QPOzaMR6PHHidLvgEiQo uJ20Ggm+QFBtoUbfc3Kq Kcwuo6aqi1zvhJa5 IjMwJSIgdmFsaWduPSJ0 i9AvLq48M87lDNtrRKPq MTKqWZShAHKgnMxltp9r rW3tUu4+PGNvbCB3 rLZ7gO8vFZUeItF8SVss H764LxNewGArOsbyg5lv z4ngvJa8PyQlHDAlxwSn pCbhDWE9h6YnCj64 T57fRQqiAGDiOJZfSFNu KYShsEmqmo8nlW1eEg7+ SK8ne3ahop22cX86rRP+ VMEfVIC9cVxgUYca PFMgdC7zPHhqBzS6SUSw WyIyyK27oZAdFTtwLo2m tYpmhZwhAW2ySIPyqstp t777XjItw8saLNVo lAXlRKlhTXT2P81bz4U9 MKJzNAVeBMR5nXF6uR6p bGlnbjogbGVmdDsgdmVy jEbvTAboKHujL255 IHRvcDsnPlBhdGllbnQg LnOnLYz9C3FgNjs7EZZn wKtrOQ5ryZGgPPytIz0k eNqlzVxzAG4dUNOe jpzhf658MfYsg0mpJJSu oGChZNmnAVV0Z69pz1S2 CLIyOWMtQFS8iLT4wA7g bGlnbjogbGVmdDsg loNubOhcKEexICsmN391 IHRvcDsnPkJpcnRoIERh nLS8JD15GP21mLQrn2V6 qRU5M2SuLWNzsasb aimhwKQ6XDUuARKhzV77 Ak5ajWjqDu3mCXStJHW1 GQEfbZHdF1LidV2bWeBn AFXbARQfN2AogLLe UXurN032NHwvGjQ1SOFn jaReK3TdJPVguNylVdY3 k4C8Ul5QN9N8JV74DK38 hOTnn5I2aWX0Y4Pe VQDurvtcpkwxbBN6BVHi OAOaqZ40Sk7zsDhfAb8f YPBdSOM1TBWmtMCtL8Ok uM9zRvJmTQRhEAUo S4DeaBFcVXmcP258YHbf YzZ1VTDrmkNtA6KaNPUz uIggEeR7m8L2Ec5ELZb8 MA21SG41oCFzg2G8 cIE0Q5AsNBCuxwnomuha rZA5APYaVYZkmK00Yt9t pTchIi4hIPIvENH8FMSp hWNfI5IgiA2pWgXe HPCpQAWeP0QfoACzPKsi Q299CVnhJjY9IJEwwcQg V6OuHKDvmZloKpN6j2S4 Rw6VGRWnQB31DAN4 xHV1UJ23YS32U1HqTduk dGFibGU+PHRhYmxlIHdp ZHRoPScxMDAlJyBzdHls WQ2zYg8oXKAvLZGd cSiwcESePzLvp7vaLAOj TUhwNX7ibXfpD7NlaAJ4 QXCps2o9Ex01W96fH3Mc dXA+AXVbvXK5qTB9 lD8xCqGpVpY3UBkrD464 AeTjnCLiBngmo7unb2zq kDt2IpN3QSEtjdRtvLjb JIL0t8EpWx14J64t IHdpZHRoPSIxNSUiIHZh kOktmx6naN9hRr2+PGNv kHB0jJT1mR3xXlEuArI3 SBjyF264XiWseKDj Wnvvb0hkp8ojaLk1EtAy GZOiooWmoJdzTGH8r2Kb Ai46R5GuoAtut4RvRon3 mg71xMDxb7G0bUM0 G1WePBLbiafzvOMjfHvl EQ6gBKIltmrkRNYliF5g NFIhF4o9MbFkZdP0OZmg M5YmupF3AATtaEXf YFksMJF2O47jq2A7WWJb WJAyVXO3cYI4rR9zkRzy bjogbGVmdDsgdmVydGlj EVdxVQulK104UKAx tTmeOZVvgG6tNOGfhNJf fPooUK6iALNnmfdrIhhU NMJRC72YLPBFE1LKTU62 N8GhNen0LPRygBqk SI5eaWAfFRijWo4lzBmb eKagKU3iGGBlppxjNZKh bM8oTTQzhECdoQyfOK0u DGOrnhwej489ZfVz PZG7OASytSSxE1DpaU1p KlDvFFKgBATaX1QyzGYh GKbiB581IStvWpJ7URSp rdNtW9IjVOVxnHxk SbH3s2A0Ee6yDb3qPs3q XNC7LC11DX08pYStx4U8 bEL0E6IxNBEtxgqgyvza iLU0KJBaSFAesB02 vZJoTQdiFt3aj9L7b472 PHVcQYKftP50Om8tqHmi YVYjkDJSdW7wttjwf0fy cjogIzAwMDAwMDt0 EVk7UKIxqAlqZhIaLAH7 VtH0OIO4tEZniA9myPwu zkekrN7vLzm+ODQgWWVh miA5I0TgMkm8EUNp cJrrSA5xbOOnONnxRf2u kWwrhIwpLJ0sZCQxzccv LPEjwQ6mJEJcgVGrjSbi QK0mTEVknsjro139 VeSeIZY6ETRosHKjC5Av bK9jJlPeXUDwVGKqR5Vd rJOiJUgfQ731OElaXbN9 YBZbwqNyE1PcDAMo uFxkVqH3s2Z4Ph3HYU3P JNR3E2DoShh9POYdvWxu UZ8suJDnGUplOk0qlKab qNukMJ1mKLFznejp UEMndQ1oTJGdpZYstTyx QE4xWUPztbqnz876LmAj JSV5QSRpkEOtW2PviO3y GeYdIYMtKKBjD3Vu yJBuJJadG645BFrdBgF0 YGBdzsNqF6WxRLDvxNze RfG4o4L9Mv0MQMtklMX+ SA57mk90N5XdGslo Bfa8EFUsHHG1tEH9cI1x BBWlMQwuq9P9uSD7V0Hb taPgui6qf2jqCUIqYHaq A61neDUqd6R2NUDc sKY7SMSgtZyiGoDhwJ90 Oyc+JAZuvUoca1HyTjsd a8mfb4lapRb3YlSrGCOu krIigXedJDI6r0Lx Hg41V93qINijGIGtKXSg TNBrYBItsVygad5cxC5g Ii8+XDJblFZ9iYW0dS9x IzXwQdV8JXrmV455 UpUmfQHlUhstc2kna0bp iSe1LuRbYMSmhvEdqYfq RLC1q7ZoGd17S7TdnBkh m5EtChj6of69hODf h6J7zPQ8N7SpRVKwmcse wLArpPbiZU9lLYAqykgv QFOydE5oWERaK5f7VaSq ZuL7QXvsQ7DuyfE8 KOPjwOQdJPOmgLKLzC3n jrcbx6fjjpanXoQjPLIn JIg4LPs8BVRecGajVsMz DGN5WbW2NQP8mRSj cF7otPminvjunT1jEqr+ UYy3y6nobMNsGD5sqKY0 LJ61IX07gUOqf1Z7jXI6 X4QoVLRdwcsorjkr wUU5IORxLAWxpP35Lu5p tTeaKo9cYVYqMLG5EABo aYHzZ9BlrW6bJaKcPXLz IQAvO7FemVWwPFhl N703SWspUzX8MCJpxwEb H4CjJZWvoBroZuE4f6I0 Vo5KEO35WY16FV84dOKw z9N0iUP7P8KsKBIe drmrbdqiiJA8ABVvCGSj eQ63Vj9taAcjVe3eGPTs UCE2VBVolTLaE0IysO2f AqRzYJRzWSZgF0Xw eMYaFYhpW081XEriTzA9 JGAeqdOuB6HhXDTjgRdg ZtP5d6S7Pc6VJq60CV34 EX99eZXdy7G2pAN6 T0HqWTCshwjbojwgwZV0 DJYrAFYikW60Vx6epRby Ie8bUWSoLIM4SKMvgHXr B7QiqE8zOnHoRJOz YHJeF9NawMAcPKrtA348 CIsvNgR0MOWhbxMwH9Ht HNTxkLdiQyQ0s5C0Ai1R HCwxnwp7S8ViUvat dHI+ME44NXOlLQ06sQGf tQPmm8ethKh1DkXcPXMw AFI6wAlwFHoiv5FcFHLh M89gmCJfr8O1RKVs bGx (more content not included)... [facility] Coding Summaryon 03-08-2023 Coding Summary HTMLBase 64 XilmvpygMLd1sLh+PGhl YWQ+GX1IJVYoC56kqLRo nY5DZ3vRAR2WDSEGHUHP RB8EXO2ffIH5XYpjJ0Gn biAv DnjfhWVkEE43RAv1UHV1 vPlwOTsdaA0ivRAsO2n1 YmNrQC03wQ83XFkbQIGk SjH3GxMhdzudkUVi E8doCyUotAZmRlj+PHRh YmxlIHdpZHRoPScxMDAl DyAlgCybGW0oYr7nTEGz LWNvbGxhcHNlOiBj f6alDBKuJErzNE1uoSpb P9MinIP9WFWpd6o7Gi44 dHI+TOLuQAT8sJbwEJwv z322DtSyg3lhOTM9 rLSiSMeaRIG2H97pj0H7 YCLlVSOdJWS2kGO4gS7o gRtstqfrM1JhaWGvBiE9 XTF1iQNpvR4crQnf bmhgoT2iLra+O95WQY4Z EAPQRP6XBvn8J4FzQish dHI+JE02KDXaDA58kVGr tBIzz8gunSd5IzEr TSYyHNO2mSrhPWulj0Fu OIJxH54ecLYkh1F4CHIs pNpngELbTfZprET7aN5w VSxecdius5kqpptv Kjvyd6xcyu31oN32V57c EBfwQZZjRKT3SJBuIYEa pEouen0byY4mCd7+IDxj j7khd4twkBg4VjWq WVKuloGvmCpsVCQ4b9Ku It20G1RedLbiu4QpFhe1 dz59hRPvk5N6fDV3LHgu OSLghW8qJAjpZsI4 PCCmSbIvsN15bRPcFRan Nk7cvQqecMjdDF1cRWFi wbwbHHFwgA5hVRAiuCAv wDppST6qAORugxjq h832EiAfHDB1AMFgrJDq V4KsbF9wVcBvNIGoZCQv I5JigEZpRQysR462YNwb WnQ1CPGxomToA9Xb MFQizXueEbJ4a8V4Fa5A f7TkmuvrTFG3LMxzXTA5 RhL6NwQcBbK1E5PaHxi3 MFSukDchMP8fC0Sy TABqwmbweygsyUV1DKVp OZLvjQ96sRZzODfqQe9w w1T5y383WLToOQBmhE89 Dr3zvPvfIITdxFTH xP2yrdwrk1wqhcybHlNs IZInNRq7VZq7KYSdnNsu PaZiXJE7IcC1AJJ9qLFu cZ5gxAmbmczgtA3e Oyc+Z03xgT6dGZZ1JXY2 ixdrWNJnfnJxUP01GS96 D7ZpQercrNZhuMR+PGRp miZzhLsuLP7cOkDa a3edn5GjCGmhP7AuUSYe NJxiSad2LTYgCJF3zRS6 dF2aUCDmBJzkl4K1yNY1 N1UrcuRyae5zc2ce LDWaMFwkS30fwWKev3D1 NVNyzBD9EYFldZceDoLd rU88Hls+VLNtoUtbk5Sd Bfoxk3xjq6bwtUj4 IjMwJSIgdmFsaWduPSJ0 c1GeWa18B43zTIpxEZIn EYOdUHVvSDQwtQcfii5c pA5uSr7+PGNvbCB3 sOD3mI0cVAHgMwD4QObl Z801OkRwjQKnKkgrp6xu m1oflMy4MdCnSMSbleKq mUalRQL9m4NvLb00 X40uVAbgTDFkPXKaSOJl APBraNxuve4zbA9zIj2+ NI9ds1cocf00bY53zDZ+ LNGcXYX0zMnhQCot ZYRqlO5wZSnzAyC2RCBx InTmiG02gLDfBGovXi1v hXywbRmjKD0wLLDlhjat z726EyPnh2jtRTTg zPCqOHzvUDH6E84yn7X8 GGMkMLTyFPR9uPM9qE6z bGlnbjogbGVmdDsgdmVy fEcsRZbvFEkoW165 IHRvcDsnPlBhdGllbnQg OlZfOSo3A0CyGbk2JCEn vAzsYD1knGDbXCuxVv2s lSlnvRhgLF7mRBPo vwdvq205UeVyt7oaMRWo fNImTMjxQBA6G46fj3S2 KIWjKPDoREE3vDQ3yS2g bGlnbjogbGVmdDsg aaIyqBvvNWidABtzU456 IHRvcDsnPkJpcnRoIERh aTP6VB03SY18oORjr3Q3 cXT6F8BsHXUnuakd teslgEE4ZBEwNZEzyA20 Ta9wgOzrSc1vBKYiPQV8 VDTpcBZyE2HpdX3tAlCm MHYaJZIwQ2AofJFh ULxwX721WYndJmJ4KUYq chSjX0PpTGTcdXxdAmO0 m0H5Ix6IR7K1WC54VB34 yOXrp3K0nEL4L2Qe WZFdpyrxruhhsUN8TOVp LEQfgS46Yl6fkFtmGm3a HZYiAFI4XUSekPUbS1Qw sJ3rKoDsMJNeJECz K1JtuPDjPCdhC575MSvh MxQ3WSHpkfRcZ1LeDGMj cRgfNxL0v7Y0Al2VEXz4 VO13RX20mOSzm6J0 wYR8M3YmXAGvobqiqhye tNX6YZXfNPUadS03Ix3d eOldRc7hAGHoTSR4FDHs eEEpH2GezJ2aBdZc ZHXcDRDhQ5YfeZToUAlp N083WDcjMhW5PJSxylZr E0SiQWMncVbqDlO4g2O4 Ec2WCZSfHB46EBU2 yRC3DD50OS72C9EzHdfp dGFibGU+PHRhYmxlIHdp ZHRoPScxMDAlJyBzdHls IZ9lSk6wAUKdBQFx tYcztXDjOoHbb6urORJz ZSdtUB3bpProN6PsfGG1 DAPyc3r7Rr01M80aF2Te dXA+TZCdtJV9hSZ0 fC2ySyNuLoG7VXyvW674 MjMohEXbWzaqb0mus1oc aIe3JjB2URRxiaJhpBdy QHC0b3LuSp80O68f IHdpZHRoPSIxNSUiIHZh fVhuiy1bhT1nRn5+PGNv rAV6kJM9eD0gEoGeKtU6 MIvkF472NbVitGAy Fphin0hbz8olgEl0LhTo YMLoowNmeSkfGQA7w0Wp Pe39O9IrtCayk0YmNyp7 do00qIXay0U7rTI2 G1LwASKbpllvaQRisMsq XV0rLLLjmldxTGRzzJ9g BNAuY3w7ZeJpNlA3KHjz R1MqkmE1STCfxJEm XMluPRW9W65uu0L8XBTv DBWaQUG4eHR5vB2jkEte bjogbGVmdDsgdmVydGlj WSjfFBrpT593ENNz yPnvWWMquS4jBGFyuQXk wHsmKU5cQJMinmllHooQ LFSUG60LXSQIT4MQWB89 M1RkEsc2ZSMtpBju CG8esLCkZMhrTx4eaBmp zEhyNO6uLFFbdjfmOCQa jN8uBRVbrHGzjLahML5g MOGigklqv958KrKo KHQ5MPWjmVAmH0RtyV3s DpNrFUCuURIcF0XvxIPi PTccG035AWqaCkS0MIBb etKbA3GuZLFksWnw ZuZ6n9Z6Yf9wWj8jUy3p YDM8JU36CW35kVXmv9F6 gCG7W5ZrHXXdrvtjgvyl oTM6PQAqHWNrgK96 mEUxIRlwHq8dp3A5f513 RABvMJWzrS05Pi4dbAqm MBRbzWVArX0qcycrd6kn cjogIzAwMDAwMDt0 BRn9MAGmqBalEaMxJIM1 ThU2NLY9jUXegW3tpCma jrnonC2tFmp+ODQgWWVh xvS3T8RwNqq0CGPt uPxsSB8ybZDgQXluIl9l dAftiHalGY0qTGIgyfve PCPjtR7kGZFxfDRpcCtp XU6rREBjakdic486 PcJmFMI0CQSmbYCoS5Ew hY8oLzMxCQPzQMThB3Ta dCMaRYixH879VEbvToF2 AGXppwLoN8HpDHPj qMdsCdR2p9I4Ji7ZWS3F XML7E9DwJws7TQSprKld IR4pwCGdCEkcIn1esIix tGtwXD4yEVDpciud CSJcwP0eINUqfPLcyFyf EK6jLKItnsoqv731DlCa NWK2RXJqaUFvI6PfyT1s UxAvZNUvRPQoU7Jo tEXmTTonF452HTihHcI6 OODgeyQdN1IyHMMnzUts UjH2x9X5Mq4OSNjprYI+ ZC22sa99A0FjMebe Pyr9QDXzENO7yPI9fJ4g IDKwHOpas1J7oPD9D9Lm vcLzig8gc5wuREPjGCea C19rlGEzv3K3FWKe cMO9ZABewSrpKoGolI35 Oyc+BJRhyKozp5QsPsbt k0ekj6uegWr9WdVlODNt hkFzjUssVSE1w9Yx Wj07N97gWMkgRLKbSEJn JGNgUZGhlGynuh9nkI1c Ii8+MEViyAF0lOB0zG0i AfIlUaH7BWjwB393 UfVfvZOtFojtw6iwo5nm wWf4SgSzOPHdkqFkuGct FDH8o3KsQj92K9AcbRtj o9BsIpu8jb43lGWv k1V0rYP0F1OmSIAjcogo pLRhcLrgPE0nECWcqqdf ZLMmxB5yYIZxW9u2NhJb JuM8PYyoM3LhheK4 KASyhIDwZYXocWUIuT5x agskc0tavigdBxNvAEKm ZCy4SYf8IYMoaFhzWqZo ULH0RmK9UZV6lPHs mY8tiYywuhdgjY7uRqb+ AHg0j9hthJQsXQ3dgUM6 VU81RU56sQRvx5U0sEL7 H2IzJMXsrhwiumit xID5CZCgDSBxmN92Wr7j pDqdPa4cMHPkWNA1CWVh eLApM0XeeK8xOsGoIGEd PHRkT1DatMZbUUfa U155IRouCvI2LMCvznUf K9FqUJHtlNfmBkN8f5H7 Gu6EAD97ZH21UY34sOQg w9A8tDS9Q4BjJGWm ewnzoexyfKB0TQXhTFPl fA42Tw9nsEsuGw4aBNKd QOK4KRQrcXYxS8NucM6n TkEnMYLrQXHvP3Ay uHXpJNvpR964CYrvAiX6 RSOeicBuW6OgDRGdiOha SyZ6h1J0Ln5RBk50WG59 PO80wFTeo2O6lQZ2 W7ZpQGZyeqsqslqubRS5 DODlMFNxtM68Ht1syLxe Ns1qJENbGKO1TMWyvNWl A5AkbL3lVbSlOIXx AYMzQ9IraCXsNWttV692 ISbhIhQ9RWYcbqCtR8Xy FPOwlBlvHfV0d7Z8Xd3N VUestks4P7DaKokl dHI+XM97NXAuOQ87kCNh aMGjy6oahDq2XbEhWKLz AAV8zWziEZyiv9RrSSWc N35juLAsc5U4VFPa bGx (more content not included)... [facility] [place] LE Arterial Duplex Bilate ralon 03-06-2023 US LE Arterial Duplex Bilateral EXAMINATION: US LE Arterial Duplex Bilateral HISTORY: Other specified symptoms and signs involving the circulatory and respiratory systems COMPARISON: None. TECHNIQUE: Arterial duplex examination performed using B-mode, color flow and spectral analysis. FINDINGS: There is scattered atherosclerosis throughout bilateral lower extremity arterial vasculature. There is multiphasic waveform throughout bilateral lower extremity arterial vasculature. There is minimal elevated velocity within the right common femoral artery measuring 179 cm/s in the proximal femoral artery measuring 190 cm/s. There is also mild velocity within the right popliteal artery measuring 143 cm/s. However there is no spectral waveform broadening distal to the mildly elevated velocities. On the left there is mild elevated velocity within the left femoral artery proximally measuring 139 cm/s and the popliteal artery measuring 134 cm/s. However, there is no spectral waveform broadening distal to the mildly elevated velocities. IMPRESSION: 1. No evidence of significant stenosis of bilateral lower extremity arterial vasculature by resting duplex imaging. Final Dictated by: Aditya Shaw Dictated DT/TM: 03/07/23 6:14 Signed (Electronic Signature): Aditya Shaw 03/07/23 6:18 am Technologist: Chon MALIN [facility] US LE Venous Duplex Bilminoo burgess 03-06-2023 US LE Venous Duplex Bilateral EXAMINATION: US LE Venous Duplex Bilateral HISTORY: Other specified symptoms and signs involving the circulatory and respiratory system, lower extremity ankle ulceration, possible venous disease, pain. COMPARISON: None. TECHNIQUE: Duplex evaluation of the lower extremity venous system is performed bilaterally with maldonado scale and color Doppler as well as spectral analysis. Venous duplex examination performed using B-mode, color flow and spectral analysis. FINDINGS: There is no evidence of venous thrombus in the lower extremities, bilaterally. IMPRESSION: Negative for lower extremity venous thrombus bilaterally. Final Dictated by: Robbie Rahman Dictated DT/TM: 03/06/23 3:27 Signed (Electronic Signature): Robbie Rahman 03/06/23 3:47 pm Technologist: Chon MALIN [facility] Wound Care Noteon 03-04-2023 Wound Care Note Patient: JOYCELYN JUAREZ Age: 82 years Sex: FEMALE : 1940 Associated Diagnoses: None Author: Rachel Barnett PA-C Wound culture from 03/01 reviewed. Left leg wound is positive for Proteus mirabillis. Prescription for Levaquin 750mg PO daily x 10 days sent to [facility] at [address] [place] [address]. Wound care staff to notify patient/caregiver by phone of results and necessary medication for appropriate treatment. Staff will also remind patient to call central scheduling for bilateral duplex ultrasound. [Electronically Signed on: 03/04/2023 09:29 EDT] Rachel Barnett PA-C [Electronically Signed on: 03/04/2023 09:30 EDT] Rachel Barnett PA-C [Electronically Signed on: 03/04/2023 09:34 EDT] Rachel Barnett PA-C [Verified on: 03/04/2023 09:29 EDT] Rachel Barnett PA-C [facility] Wound Cultureon 03-03-2023 Wound Culture Heavy growth of Proteus mirabilis and Heavy growth of Staphylococcus epidermidis Normal skin kirsten 4+ Gram Positive Cocci 1+ Gram Positive Rods 1+ Gram Negative Rods Rare White Blood Cells ORGANISM Promir ----- SUSCEPTIBILITY ---- ORGANISM ID: 1 ANTIBIOTIC INTERPRETATION LORRAINE STATUS ORGANISM PromirPromir Amik S <=16 Verified Amox/Cla S <=8/4 Verified Amp S <=8 Verified Amp/Sul S <=8/4 Verified Azt S <=4 Verified Cefaz S <=2 Verified Cefep S <=8 Verified Cefo S <=2 Verified Ceftaz S <=1 Verified Ceftri S <=1 Verified Cefur S <=4 Verified Ceph <=8 Verified Cipro S <=1 Verified Ertap S <=0.5 Verified Gent S <=2 Verified Levo S <=2 Verified Nitro >64 Verified Pip/Virgilio S <=16 Verified Tetra R >8 Verified Tobra S <=4 Verified Tri/Sulf S <=2/38 Verified Normal [facility] Comment on above: Performed By: #### [phone] [id number] ####[facility] (DEFAULT)[address] [place] [address] LIPID PROFILEon 12-04-2022 CHOL-HDL RATIO NORM SEE BELOW Normal [facility] Comment on above: Result Comment: 3.3 - 4.4 LOW RISK 4.4 - 7.1 AVERAGE RISK 7.1 - 11.0 MODERATE RISK >11.0 HIGH RISK Performed By: #### R ENAL, LIPID ####[facility] [address] [place] [id number]. Breanna Heller Cholesterol [Mass/Vol] 112 mg/dL Normal <=200 [facility] Comment on above: Performed By: #### R ENAL, LIPID ####[facility] [address] [place] [id number]. Breanna Heller Cholesterol in HDL [Mass/Vol] 38 mg/dL Critically low 40-60 [facility] Comment on above: Performed By: #### R ENAL, LIPID ####[facility] [address] [place], [place] [address]Uh. Breanna Heller Cholesterol in LDL [Mass/Vol] 41.6 mg/dL Normal [facility] Comment on above: Performed By: #### R ENAL, LIPID ####[facility] [address] [place] [id number]. Breanna Heller Cholesterol.total/ Cholesterol in HDL [Mass ratio] 2.9 {ratio} Normal [facility] Comment on above: Performed By: #### R ENAL, LIPID ####[facility] [address] [place] [address]Dr. Breanna Heller HDL NORMAL > or = 60 mg/dl - LOW CARDIOVASCULAR RISK <40 mg/dl - HIGH CARDIOVASCULAR RISK Normal [facility] Comment on above: Performed By: #### R ENAL, LIPID ####[facility] [address] [place] [address]Dr. Shaniquevera Heller LDL CALC NORMAL SEE BELOW Normal [facility] Comment on above: Result Comment: <100 mg/dl OPTIMAL 100 - 129 mg/dl NEAR OR ABOVE OPTIMAL 130 - 159 mg/dl BORDERLINE HIGH 160 - 189 mg/dl HIGH >190 mg/dl VERY HIGH Performed By: #### R ENAUGUSTINE, LIPID ####[facility] [address] [place] [address]Dr. Breanna Heller Triglyceride [Mass/Vol] 162 mg/dL Critically high <=150 [facility] Comment on above: Performed By: #### R ENAUGUSTINE, LIPID ####[facility] [address] [place] [address]Dr. Breanna Heller VLDL CALC 32.4 mg/dL Normal [facility] Comment on above: Performed By: #### R ISAI, LIPID ####[facility] [address] [place] [address]Dr. Breanna Heller MICROALB CREAT RATIO RANDOMo n 12-04-2022 mALB <1.3 Normal <=30.0 [facility] Comment on above: Performed By: #### M CRR ####[facility] [address] [place] [address]Dr. Shaniquevera Heller MALB CR RATIO 100.0 mg/g Critically high 0.0-29.9 [facility] Comment on above: Result Comment: Prev iously reported as: 149.1 On 12/04/2022 09:35 By [email or web address] Performed By: #### M CRR ####[facility] [address] [place] [address]Dr. Shaniquevera Heller MALB CR RATIO RANGE SEE BELOW Normal [facility] Comment on above: Result Comment: NO M ICROALBUMINURIA 0-29 MG/G CLINICAL MICROALBUMINURIA 30-300 MG/G MACROALBUMINURIA >300 MG/G Performed By: #### M CRR ####[facility] [address] [place] [address]Dr. Breanna Heller URINE CREAT <13.00 Critically low 20.00-300.00 [facility] Comment on above: Result Comment: Prev iously reported as: 8.72 On 12/04/2022 09:35 By [email or web address] Performed By: #### M CRR ####[facility] [address] [place] [address]Dr. Breanna Heller RENAL FUNCTION PANELon 12-04 Albumin [Mass/Vol] 3.7 g/dL Normal 3.4-5.0 [facility] Comment on above: Performed By: #### R ENAUGUSTINE, LIPID ####[facility] [address] [place] [address]Dr. Breanna Heller Calcium [Mass/Vol] 8.8 mg/dL Normal 8.5-10.1 [facility] Comment on above: Performed By: #### R ENAUGUSTINE, LIPID ####[facility] [address] [place], [place] [address]Dr. Breanna Heller Chloride [Moles/Vol] 102 mmol/L Normal 98-107 [facility] Comment on above: Performed By: #### R ENAL, LIPID ####[facility] [address] [place] [address]Dr. Breanna Heller CO2 [Moles/Vol] 31.7 mmol/L Normal 21.0-32.0 [facility] [place] [facility] Comment on above: Performed By: #### R ENAL, LIPID ####[facility] [address] [place] [address]Dr. Breanna Heller Creatinine [Mass/Vol] 1.31 mg/dL Critically high 0.55-1.02 [facility] Comment on above: Performed By: #### R ENAL, LIPID ####[facility] [address] [place] [address]Dr. Breanna Heller EGFR-AF AUSTRALIAN 47 mL/min/1.73m2 Critically low >=60 [facility] Comment on above: Performed By: #### R ENAUGUSTINE, LIPID ####[facility] [address] [place] [address]Dr. Breanna Heller EGFR-NON AF AUSTRALIAN 39 mL/min/1.73m2 Critically low >=60 [facility] Comment on above: Performed By: #### R ISAI, LIPID ####[facility] [address] [place] [address]Dr. Breanna Heller Glucose [Mass/Vol] 163 mg/dL Critically high 74-106 [facility] Comment on above: Performed By: #### R ISAI, LIPID ####[facility] [address] [place] [address]Dr. Breanna Heller Phosphate [Mass/Vol] 4.1 mg/dL Normal 2.6-4.7 [facility] Comment on above: Performed By: #### R ISAI, LIPID ####[facility] [address] [place] [address]Dr. Breanna Heller Potassium [Moles/Vol] 4.7 mmol/L Normal 3.5-5.1 [facility] Comment on above: Performed By: #### R ISAI, LIPID ####[facility] [address]xlxml[address] [place] [address]Dr. Breanna Heller Sodium [Moles/Vol] 143 mmol/L Normal 136-145 [facility] Comment on above: Performed By: #### R ENAUGUSTINE, LIPID ####[facility] [address]grmwj[address] [place] [address]Dr. Breanna Heller Urea nitrogen [Mass/Vol] 32.0 mg/dL Critically high 7.0-18.0 [facility] Comment on above: Performed By: #### R ENAUGUSTINE, LIPID ####[facility] [address] [place] [address]Dr. Breanna Heller VITAMIN D 25 OHon 12-04-2022 VIT D 25-OH 33.2 ng/mL Normal [facility] Comment on above: Performed By: #### V ITAD ####[facility] [address] [place] [address]DrRoman Heller VIT D RANGES SEE BELOW Normal [facility] Comment on above: Result Comment: <20 ng/mL Vit D deficient 20 - <30 ng/mL Vit D insufficient 30 - 100 ng/mL Vit D sufficient >100 ng/mL Potential Toxicity Performed By: #### V ITAD ####[facility] [address] [place] [address]DrRoman Heller PTH INTACTon 11-23-2022 PTH, Intact 40 pg/mL Normal 15-65 [facility] Comment on above: Performed By: #### P THINT #### [facility] [address] [place] [address] [address] Breanna Heller CBC AUTO DIFFon 11-22-2022 BASO # 0.0 103/ul Normal 0.0-0.1 [facility] Comment on above: Performed By: #### C BC ####[facility] [address]uzil[address] [place] [address]Dr. Breanna Heller Basophils/100 WBC (Bld) 0.3 % Normal 0.2-2.0 [facility] Comment on above: Performed By: #### C BC ####[facility] [address]em[address] [place] [address]DrRoman Heller EO # 0.2 103/ul Normal 0.0-0.7 [facility] Comment on above: Performed By: #### C BC ####[facility] [address]rxhm[address] [place] [address]DrRoman Heller Eosinophils/100 WBC (Bld) 1.9 % Normal 0.9-7.0 [facility] Comment on above: Performed By: #### C BC ####[facility] [address] [place] [address]DrRoman Heller Erythrocyte distribution width (RBC) [Ratio] 15.9 % Critically high 11.0-15.0 [facility] Comment on above: Performed By: #### C BC ####[facility] [address] [place] [address]Dr. Breanna Heller Hematocrit (Bld) [Volume fraction] 44.1 % Normal 36.0-48.0 [facility] Comment on above: Performed By: #### C BC ####[facility] [address]ys[address]or[address] [place] [address]Dr. Breanna Heller Hemoglobin (Bld) [Mass/Vol] 14.1 g/dL Normal 12.0-16.0 [facility] Comment on above: Performed By: #### C BC ####[facility] [address] [place] [address]Dr. Shaniquevera Arron IG # 0.04 10e3/ul Critically high 0.00-0.03 [facility] Comment on above: Performed By: #### C BC ####[facility] [address]ccapv[address] [place] [address]Dr. Breanna Heller IG % 0.4 % Normal 0.0-0.5 [facility] Comment on above: Performed By: #### C BC ####[facility] [address] [place] [address]Dr. Shaniquevera Heller LYMPH # 3.1 103/ul Normal 1.2-3.8 [facility] Comment on above: Performed By: #### C BC ####[facility] [address] [place] [address]Dr. Shaniquevera Heller Lymphocytes/100 WBC (Bld) 30.8 % Normal 20.5-60.0 [facility] Comment on above: Performed By: #### C BC ####[facility] Rect[address]ge[address] [place] [address]Dr. Shaniquevera Heller MANUAL DIFF REQ NO Normal [facility] Comment on above: Performed By: #### C BC ####[facility] [address]ksxw[address] [place] [address]Dr. Breanna Arron MCH (RBC) [Entitic mass] 29.6 pg Normal 26.7-34.0 [facility] Comment on above: Performed By: #### C BC ####[facility] [address] [place], [place] [address]Dr. Breanna Heller MCHC (RBC) [Mass/Vol] 32.0 g/dL Normal 29.9-35.2 [facility] Comment on above: Performed By: #### C BC ####[facility] [address] [place] [id number]. Breanna Heller MCV (RBC) [Entitic vol] 92.6 fL Normal 81.0-99.0 [facility] Comment on above: Performed By: #### C BC ####[facility] [address] [place] [address]Dr. Breanna Arron MONO # 0.7 103/ul Normal 0.3-0.8 [facility] Comment on above: Performed By: #### C BC ####[facility] [address]reb[address] [place] [address]Dr. Breanna Heller Monocytes/100 WBC (Bld) 7.3 % Normal 1.7-12.0 [facility] Comment on above: Performed By: #### C BC ####[facility] [address] [place], [place] [address]Dr. Breanna Arron NEUT # 6.0 103/ul Normal 1.4-6.5 [facility] Comment on above: Performed By: #### C BC ####[facility] [address]igs[address] [place] [address]Dr. Breanna Arron Neutrophils/100 WBC (Bld) 59.3 % Normal 43.0-75.0 [facility] Comment on above: Performed By: #### C BC ####[facility] [address]km[address] [place] [address]Dr. Breanna Arron Platelet mean volume (Bld) [Entitic vol] 10.2 fL Normal 9.5-13.5 [facility] Comment on above: Performed By: #### C BC ####[facility] [address]xty[address] [place] [address]Dr. Shaniquevera Arron PLT 198 103/ul Normal 150-450 [facility] Comment on above: Performed By: #### C BC ####[facility] [address]xydh[address] [place] [address]DrRoman Heller RBC 4.76 106/ul Normal 4.20-5.40 [facility] Comment on above: Performed By: #### C BC ####[facility] [address] [place] [address]DrRoman Heller WBC 10.1 103/ul Normal 4.0-11.0 [facility] Comment on above: Performed By: #### C BC ####[facility] [address]mt[address] [place] [address]Dr. Breanna Heller FREE T3on 11-22-2022 FREE T3 2.12 pg/mlL Critically low 2.18-3.98 [facility] Comment on above: Performed By: #### M G, FT3, TSH, BMP, PHOS #### [facility] [address] [place] [address] [address] Breanna Heller FREE T4on 11-22-2022 Free T4 [Mass/Vol] 1.14 ng/dL Normal 0.76-1.46 [facility] Comment on above: Performed By: #### P THINT #### [facility] [address] [place] [address] [address] Breanna Heller MAGNESIUMon 11-22-2022 Magnesium [Mass/Vol] 2.2 mg/dL Normal 1.8-2.4 [facility] Comment on above: Performed By: #### M G, FT3, TSH, BMP, PHOS #### [facility] [address] [place] [address] [address] Breanna Heller PHOSPHORUSon 11-22-2022 Phosphate [Mass/Vol] 3.7 mg/dL Normal 2.6-4.7 [facility] Comment on above: Performed By: #### M G, FT3, TSH, BMP, PHOS #### [facility] [address] [place] [address] [address] Breanna Heller PROF CHEM 8 (BAS METB)on Anion gap [Moles/Vol] 12.8 mmol/L Normal [facility] Comment on above: Performed By: #### M G, FT3, TSH, BMP, PHOS #### [facility] [address] [place] [address] [address] Breanna Heller Calcium [Mass/Vol] 9.0 mg/dL Normal 8.5-10.1 [facility] Comment on above: Performed By: #### M G, FT3, TSH, BMP, PHOS #### [facility] [address] [place] [address] Dr. Breanna Heller Chloride [Moles/Vol] 100 mmol/L Normal 98-107 [facility] Comment on above: Performed By: #### M G, FT3, TSH, BMP, PHOS #### [facility] [address] [place] [address] [address] Breanna Heller CO2 [Moles/Vol] 32.1 mmol/L Critically high 21.0-32.0 [facility] Comment on above: Performed By: #### M G, FT3, TSH, BMP, PHOS #### [facility] [address] [place] [address] Dr. Breanna Heller Creatinine [Mass/Vol] 1.34 mg/dL Critically high 0.55-1.02 [facility] Comment on above: Performed By: #### M G, FT3, TSH, BMP, PHOS #### [facility] [address] [place] [address] Dr. Breanna Heller EGFR-AF AUSTRALIAN 46 mL/min/1.73m2 Critically low >=60 [facility] Comment on above: Performed By: #### M G, FT3, TSH, BMP, PHOS #### [facility] [address] [place] [address] Dr. Breanna Heller EGFR-NON AF AUSTRALIAN 38 mL/min/1.73m2 Critically low >=60 [facility] Comment on above: Performed By: #### M G, FT3, TSH, BMP, PHOS #### [facility] [address] [place] [address] Dr. Breanna Heller Glucose [Mass/Vol] 156 mg/dL Critically high 74-106 [facility] Comment on above: Performed By: #### M G, FT3, TSH, BMP, PHOS #### [facility] [address] [place] [address] Dr. Breanna Heller Potassium [Moles/Vol] 3.9 mmol/L Normal 3.5-5.1 [facility] Comment on above: Performed By: #### M G, FT3, TSH, BMP, PHOS #### [facility] [address] [place] [address] Dr. Breanna Heller Sodium [Moles/Vol] 141 mmol/L Normal 136-145 [facility] Comment on above: Performed By: #### M G, FT3, TSH, BMP, PHOS #### [facility] [address] [place] [address] Dr. Breanna Heller Urea nitrogen [Mass/Vol] 30.0 mg/dL Critically high 7.0-18.0 [facility] Comment on above: Performed By: #### M G, FT3, TSH, BMP, PHOS #### [facility] [address] [place] [address] Dr. Breanna Heller Urea nitrogen/Creatinin e [Mass ratio] 22.4 mg/mg Normal [facility] Comment on above: Performed By: #### M G, FT3, TSH, BMP, PHOS #### [facility] [address] [place] [address] Dr. Breanna Heller TSHon 11-22-2022 TSH 2.711 uIU/mL Normal 0.358-3.740 [facility] Comment on above: Performed By: #### M G, FT3, TSH, BMP, PHOS #### [facility] [address] [place] [address] Dr. Breanna Hleler VITAMIN B12on 11-22-2022 Cobalamin (Vitamin B12) [Mass/Vol] 248.0 pg/mL Normal 193.0-986.0 [facility] Comment on above: Performed By: #### P THINT #### [facility] [address] [place] [address] Dr. Breanna Heller VITAMIN D 25 OHon 11-22-2022 VIT D 25-OH 37.4 ng/mL Normal [facility] Comment on above: Performed By: #### P THINT #### [facility] [address] [place] [address] [address] Breanna Heller VIT D RANGES SEE BELOW Normal [facility] Comment on above: Result Comment: <20 ng/mL Vit D deficient 20 - <30 ng/mL Vit D insufficient 30 - 100 ng/mL Vit D sufficient >100 ng/mL Potential Toxicity Performed By: #### P THINT #### [facility] [address] [place] [id number] [address] Breanna Heller XR CHEST 2 Von 11-22-2022 XR CHEST 2 V EXAMINATION: XR CHEST 2 V HISTORY: Cardiovascular symptoms , shortness of breath COMPARISON: XR chest 07/25/2022 FINDINGS: LUNGS: No significant pulmonary parenchymal abnormalities. VASCULATURE: No increased pulmonary vasculature. PLEURA: No pneumothorax, effusion, or pleural thickening. CARDIAC: No cardiomegaly or cardiac silhouette abnormality. MEDIASTINUM: No visible mass or adenopathy. BONES: No fracture or visible bone lesion. OTHER: Loop recorder projecting over midline chest. IMPRESSION: 1. No acute cardiopulmonary process. Stable chest. Electronically authenticated by: DEYA MCPHERSON Date: 2022-11-22 11:41 Normal [facility] Consent Formson 11-09-2022 Consent Forms [id number] [email or web address] Normal [facility] Coding Summaryon 11-01-2022 Coding Summary HTMLBase 64 CljsviiwIIl8iQv+PGhl YWQ+FJ3YLTYiO74ciRXc eI9AM5hREM8ZZMIMZWCC RV9CCV5nnRA0GHcvD7Od biAv QykwsQTvBS80EEt6UAU7 lBsyDIcbgV0sgIRdU5y5 ShTwUG39dC50CGjaFOOq KvX8FcYdsvgogBVn F4vaQqQwoUMkWqi+PHRh YmxlIHdpZHRoPScxMDAl KsRozLbnHW3cXu2gNGFh LWNvbGxhcHNlOiBj s3ysZBLaCEowHV8zgJyp I8CzxJY9AHQbi6i2Fz46 dHI+WBDqJBR9zKofFMxf i505GdAoc4goEGS8 zHHpHYkiKQB5B88oz9E0 UKUlGKJjSZO9fXF2zI8c mEsobigfC6HnrRBwIcV4 VWY6dMLitF7hqQxs alsqjA4uVnb+O23FCS3R ECNPVN3UKgb1V9YtNvzu dHI+TK68OBJoBE03pZMt sRAjy8tumWn7RcAq DMPgJGG4uUvbWUgob1Sv ZQNcF85rvNOib5V5DVPe vVwfrGSgHiSgsWB2kF2x XDmiwujrv1gpnemg Dgrpd1gjyx59zV43U58h EVrrXTYxJJY1WZUwKOUe sTlxjs3geN3uSj4+IDxj l4ojz8xayJj8NbOw EPFzcqVtbCujELY6g2Ps Ql14Z5ZheYmdi5QwSuc6 wv06yOVtk9G1mVC4PYbq TDKleZ3zUHmcUzA3 TLHfNtTilZ48pIVcSQmm Eh9uyVsosGqxZK4lWEKs jdcmIGCryL2hMIDyfQRj fPjlAU2mPPQfcwcp y743IaExFNR4QYCcsDDt Q3CmyV0eAkIcBSPqQLEp M3MwnEEsOVcmI161DYkr MvB9CBCeoyEjU4Di TTSzjAefCqY3j8L4Eo3Y z1PaswlfVLD2UZqwOGHw BiH9EzMrSxT2E6QuBrh3 JLGxyVoeDT8sZ8Jf MMCbosguwvuulIR0VDSs OZXlrV75hLNcMEymHs3i s2T4n594EYAaCOSzyU00 Fe3dhMufKYSwfLSI tT4gbafap8qrmhdtDqHh XATaQVf7PZt3OAIfyOdl UaPlDHX7ZzF0SYO3xMLf lF1ocLhmxjqksD4l Oyc+B85fxC9mITV6PWF0 phcwCCDdepNqRO15NZ03 K9TqGtnrxOJwmOF+PGRp njEoeNocNH4aTySz u0gad3NxTPjnV9TdATHw SNfuRmr2LZLaHTO2pJY3 eA8qCDDsNJmtr4G8aQN8 J3XbmcVeqc6av8ex LVJhMXtrT65xjDAqb1K9 VZFtdOE4AJOhaPxeXgBb hQ55Pel+KFLzaKkjw3Ne Rjqfc5vlj1sbySm4 IjMwJSIgdmFsaWduPSJ0 g9LrTv15V91qKLtkFLCe VUYvZCRtIGJmrAkwea1m dG0vBk1+PGNvbCB3 pPC5rM2mNUQaHpB9GVyh X676MiQnuAZzBpmia7kz b8psdWq1JtKcZMAyyqSg mCrfKJC5j0AiIk48 V31aHNbiYCHaZHHgVWCf SWVxcRhtdx0etD9aFd5+ WY0pg0qcxh08eJ81oMO+ NBXrBBL0rRrrNNzx CKIeyB2tBUwsWcU0FQGn EkUulC83jMYjQLjqWc1y mSoxrIpdEE2hJFEcakei r045MlBca7saDHYu nMTiZHbyEMD6P15sx4W0 JFSmPYKdVFC3jVB3wI6t bGlnbjogbGVmdDsgdmVy zVrmHFyhIXifE362 IHRvcDsnPlBhdGllbnQg ErTfDPp2U4OwFzt6UZHn jWxaTT6qjIYzCFlvOc3m dZqwxWzwUY9nCLJg uepzg499OgZcv8apCJPw dFNaRQiwNQH3B58jv8Z6 IFPpGLTnYYI5tFL0eN3v bGlnbjogbGVmdDsg sjPanVbdPPupUWoiQ592 IHRvcDsnPkJpcnRoIERh hRV0GZ94YY28pQAsy9F9 uCD3P1GiTTZbamxh srlbwGY0MQFnMEOogC23 Tn2nqHmcEd6tOBUbZZI9 FWOqvFZvM5BblZ0wKuCh BVFiOGFmJ7MctCNu SEtvX812DGvlEtE1NBSa zkIfZ8LfBKPibBlvVhG6 l8X4Rt6KQ6P2LP89QS27 sMZux3G9mJS9D9Yv DTBeilyqyiynhRB0KALm BYFulA59Pi2gsQfyVb5e IHPbXYY7XTFrwHThL5Fp fR3oAkCrXDEoKAWk S3RmiFMkSJidI426KIvh LrG0XAUchoUnN3NmDRDo aGbeFuH7z7X7Gn8LTPk2 ZI99VG91qFQsz9O4 xSS9G5AlUDSjfcwpqyoh iXX0FUUuTBOqsE36Cq1i qPppVl9nUZYnERP1AQXv tVKiD6ZffZ8oSyXr BDGfWYZdF9TdcVQbLLbr P183BMreDbK8EMTrkfTy V6BwVWLjiAysToG6h3H4 Po5HKWLxYN44EIM1 kPD8BV96PI51U4HbUtjd dGFibGU+PHRhYmxlIHdp ZHRoPScxMDAlJyBzdHls RS2hAw8zTGFrNJFo jQctbODbAvRcw9rrKTPb IPlyWQ3lvYwlG4ZhpUQ9 PALfh6r0Js84D46iL1Ew dXA+EBGldXY1jDR8 jB9kTiZfAsQ5CVraE363 ZiTgyXVtNvzco9qoy7wm vAw1WxQ4CFFmsqQdpGhy GRE1c9CfDu95X09w IHdpZHRoPSIxNSUiIHZh aGwoyq1dzM5hNd5+PGNv uMZ4nFG7eS4pRsDxZnA5 RDnwU412WcBjjVUt Dmxte4chg5jbmBn1LdTd CLUzucHlfDrkKTN6x8Mb Vc94K2ClfWmur2VaRmc3 uf43uAAad4U8iXH1 R8LeOMZawwkndIReiIyw QP0vCGXdkvexREZthG8q BIHsH0b6UbEhFvT4HNou E7VrahK8DQDmyZSc NNzmNRU4M35mv2G6GUNw SKPaUSM4iMX3aD8xoMgm bjogbGVmdDsgdmVydGlj JJtsKCnxQ553IUZe aGcjEUJvzU4oKCEikSGa bFqcBF0bSNNmmzldNlyK MIPGN16XGOOOX5GIKR97 C0JhTwi1QBFbdBrd QL8ciYLjEIrvGp4rsGul lKpyQB3oILWsquzgPINv uL6wSKKnxITorRfdRM5x QMBiyssps067SsDp CKN0INHtnUQtO7HbtV4c HoHwMGZzDQEqH8KuhGDb LPrmP537ZJidKcX2FQXs rxEeW6WaITMciFwa WyA4g1P6Ug0qMw2pMq4g XMC8LR03UF01jQDlk6I9 vYW5U6XzOTQslijjekge qDC2KTZeVZValZ54 uMSyKRhoDp1jm7B2k446 KIAfOJXlhE20Er6vqJzz NEQedDOHkM9wygkbk5vd cjogIzAwMDAwMDt0 TJd1ODYuvCkaAlXhDND7 AkG2QOA6hCUeyO8zdYmo wuuzyG1eDno+ODMgWWVh msW9L6QsEtu5IJBm oRxoKH9hsFTkYZxfIf4u jOzqsEvnKO2yJOOqqgyg AXTeeW3eGIRkmLPvkKrk VZ9jDPZvbyqns471 QlXuQZC4ZVXihRFgM9Rd zX8tImNvNYEvDXLkU0Qi zFGuMYicP500OFtaOrX6 NPZpgcKbQ6JdWLNd bDdyNaN5s6C4Fu9BRH1M CJN4Z7PmLth2FLIivJkl US9moLUwMKrlGk3inXqv mJalKY9eMCYtdzhs CPBxqU1zVCTbmLMaiVwz VO3rFXPljmxvd857KeUw KGE5VRQqbASvG0OrlN6v QuVlTNYaRFTrU3Jd yPUuOKbuZ683EJxkGuU8 SGWhakBnI6YjQQBlxJlx OyV7k1L3Lf8PFRtgnSU+ GR08vh75M8GeYfzn Rrq0ISTpNPB6zSO5kI7c BGJrGCsvw5N1pRR3S5Ln olBhko3ed7abZAVmLSjs M72qcESuo2K3WPDy pEM6ADCqsTnaFlFckJ61 Oyc+LRQzcDojc7XpYtfj b5eds6wjsNm2FjOrDLMo soKzfKhwNBS5d8Xt Qf33H61pQCwqSDRuVJCe VYVvPMTsmPtdgz3hwO5o Ii8+VCBzmXW8zCL7pK0t WzLrKcT4VAouA904 XuTrmQNoOkbsu0faj7lm zNn3WnFzYHYtyuHzbNwz ZCY5n0RdXa13S3WloEoa i4SoIrv7dt42tTYl p7Q9rMS2Y9GqTIOeguhw xJPxyVlkQE5ySGPblsfa NHAxdH4eVJRwH3c5SnOz AaY1BGaiF6RukyU8 SDJbpXEyDEIioVONcI2c smiyv9rgkqqmXhTsVXNf VTg2DDw6CKUluUnrOjZx AOE8ZyA3IBN8jLEw yX3heGsizhvzuH4aKfm+ QNj4g7rjrPKnDY1wrAH5 BV27IK61pNJqh6T3aCH1 F9SsWLLghhwzfzqa jMD8CFKbTQMglX32Wz2o oGbnPc0zWLQjOYT9NFWi mTQhK8XtrI5tIwAnEJEr JXUeU6OqcECzQJic V569ETfzRtJ4KKBjuoFp T3CeKXQhyBouTaC7t4L3 Or7TVD22XP69IT54sUWj k0W8oQZ4A1VuJEJa pljxybyxqPC9PSQoYHCy xF79Zv0jjHdnPl1eFSRy IIR4YZLbzVVaG3ZubS6g DaOwHBEkSGSqQ5Sl kYEiAFhoF068QCurIkX9 WXPqonUyV7FeURJczBah YxE5l2H2Ry7UYc80UX35 PJ45bXAvt5Y4jDZ7 Q5CeUBJwmxkbyqqxeTU1 OJSjZLRroE76Ix2ceAbl Fh8dSCFvOSZ2ENVfpNVv Y4GeqK2bCjDwPZCv ZRJzW8TcrRXbRCvyM739 LBbzWoG9DZLzucDtZ1Cp JLVrzEnfBbV9n7C2Fl5F NYenkbn3L4MzSaks dHI+XO02FVXzEC81eMBp qYBup8vlhYa5GnKbXJDw YGM9qQpbLIytr0LtUKLg R91fjKHih3W8ZLLl bGx (more content not included)... [facility] Coding Summaryon 10-23-2022 Coding Summary HTMLBase 64 YmmsrndzJOp1dQm+PGhl YWQ+XG4SUBXhJ26taKNv yN9QK7bLCN9EYNRJXZNU XB0UPZ9nzGJ5ZAmzJ2Cc biAv KadgrRMyWR16WDr8ECA2 cYiwKCvinZ1vpRYwG5h0 SbLfHG43xF72CEatHXUh YaR3SvNhahmfjJDp C7kiLuNweFExVtz+PHRh YmxlIHdpZHRoPScxMDAl UwRznMcgZE4aYq7aIVMz LWNvbGxhcHNlOiBj c1xnCRBvDXonEC9brUoh T7YzbOP7CSVvh1c2Ay68 dHI+QXNhUNT8kUwkHIxa e630FvCat0czKOW9 oEItGHsdKQL8Y90tk3P6 VLAwVTYtBYS4kUV4eI5i yMfkhcfzI1JgvVOnOqR3 IPP5bBYhgZ1ydEcf mjniwH5vEhk+K04XGM9E FZXLYJ9PEct2P1UdZyev dHI+TM33GKSbDQ60aGGc dYQrz9agnJs6LuSs ASUuKHA6xIlqUErnq3Di HZGbM04hrKIbh6U4TVFr fIaetJDzVgWisBT5nH2a MLwijfjaw2lihcud Relao1gczp24oM74B00q BLldXLXzNLZ5JBIoJYQg uBalwb2xbH4yYf2+IDxj g8lhq4lsdXy9QpZn ERJcmvQhoXgqDWV0f5Xm Nk09P4HgjOjwa9JhVky2 pe78kAWbk2P4cGB8YZvc YZJupF5gDQsyDqS0 HBEkBpOsxH20zLNlIEyu Qu5nhVprlIviUU4yXODv emvmHJNtkX9fADGsyPQc mDrrGY0tEPVqyqbo d359LnSkLKW9HCKxiNKe M8FfqZ3nPmYxKJQwYFCm Z2BceXAcESkfB931GNfz EbC2EIJltiEpY9Gv LPUrlJscLpL7q3J6Cr0D a6KblkjhCHM1GYqfUIDg LvGnKxCfKvI0G2ZbBnx7 ZPDghEggYT0oL7Xw YJRhhgsyspradHQ7CZWl MYCqlI41kTQsFIvjZp8v d3R9b542HRFiPCHopM61 Qx6ldGhwZCRlfJJS yJ1fskxsa3gzftyjSfJf HBSbYZd8JNz6CJLhvGwz DbPuKWH7XzH7EIO8sIQn vJ0wwKtnshnitT9e Oyc+F28pdS4jHRM3KUZ7 dnkaVTRxzhXyOX37SG89 D1AjImkyoJGqkBH+PGRp peNroTyaDB2pCxAy c7plb9XpGDddE4NoQCGv VNkhAxi8SXPoIAC0dCI0 bW4wFPKsHMcoy1B8aER5 A6XkywLuti8lw3hx SXBkBOakD11yqMGjh1E2 RZGjfAE9FUDxwDaqRwUt jV58Twc+STNegTtyp6Ex Nnswn1aio6jjbQv8 IjMwJSIgdmFsaWduPSJ0 l2UaTz11H68mAJdhHCMz LDCdIJZlPNQimYfimj0e fH2lCp7+PGNvbCB3 cUZ2rF0fLIChFoI6LRyd W994JaNxcFMuFxlrs9ye h3gneZp3PcFtALGrrwMx pYuwQBO4f9StQw76 F07jJFzoYIDfLFTsBGSl AZNahHcofp5flF1eCe1+ FR0qk6ewfh65qN07kZJ+ XYHoMLJ2nTryRKze CVTzpV7pEPqlTsR9UKCu WpQwuY29gPVgDEieVg8j wUpgnJgxWW3kYAGhxoji w888KyIhf0imZBWs jUPlDFpaEFS8X54lc8U0 CLWzBDTiOHH6zGK7cW3j bGlnbjogbGVmdDsgdmVy uIwlPFloZXwnX099 IHRvcDsnPlBhdGllbnQg AbBlPZw2Z6QqHzn2GFOt iYqxVK2kqINcOVqdHf2a uIhlkJdaAW1tKMFk nnsni877PnSnx4nxTCFa yUObIGdiTPO0Z18ud2G9 YTDxBPZbDKK8pTO9yP7n bGlnbjogbGVmdDsg qrUkyPtwYDteWScnY272 IHRvcDsnPkJpcnRoIERh mJS0YM85FM71sDXqd8F6 sXZ6U5DrQNIyixti riaigXU0UYGtOVAinF70 Td6yaAerRi2yOKMyVIK3 GPVbuYUlL4WcfV0tRsMu PYRzSRUxZ4YrhQYj BDpnM835AEruZgB2RLPr rxTkK4RdBVIidOswYaZ0 m4R4Ul1RY7W2YD53CX86 rTImp0Q6oFX8K1Ia DUJlztujphmduZM8WVPi TPDouS94Tb9hyKfzNv3u XERqCEJ1VJRrqUVtB4Vl gN9xTiGdYMQkPDCq T8MibHJfTGlcC855ILlm UtF4MIDswxNcP2LiBROw pPlzOnN2c7L4Yt6BIMs6 RD43RE73zUBqr2H1 xQB5B4QmOCQmixudyvdh aPI1VMKiVPSsnG91Uz8p fCmfQx8xGDPbPRW6EFNi pJQzC5SlzE7mXtPe NRIyCOCpB7FosYYzMNsy E692LGgqHgT8ZJGgfyGd Q4TpCFZlkAmcTbF7v2N3 Im4MGDEzIZ27FVF1 bYT4CT58TB03U8HzPsxf dGFibGU+PHRhYmxlIHdp ZHRoPScxMDAlJyBzdHls ME1mVe2dFBDeJXGf qCowdDMzCnBgy5neZQMc AQixYK2yfTcoJ5DibRU2 VTQql9c0Dh55W72yT6Mj dXA+LZYuiQV7rWH3 rA6yMdAmWtE5LGazY120 BzTdqTGzTcrpo9rtm7py nUu9ZeH1EVObevZngRgo SOS8z4PoOc57P64u IHdpZHRoPSIxNSUiIHZh zEfxtk5crH8zSc6+PGNv xTT1rIP4eM5lHiSyXrR7 EPxfB435QtYleOLr Vlllo4rog2tbkWx5QoOd MCAiffUmlYwuSPC8y8Qi Yw34S5FvhMnya2ZlHrt9 zm55fPIbl7K7xKE7 G9GpYXDzdkodrCEchKms OX6pEFEzctxvLOJprK2f TAQuS6t5BfMjPoD4KPlm A5RhmcW7HYVooYXs KQmgHPV9D50yw9B4BJQt DHKnKQI3tLZ6aS8khKte bjogbGVmdDsgdmVydGlj HWwqCUszF659LPKs nLxmKCLrhY2lKAHtgGFt qKhuGW5fKKXbfvooJtvS MZVSW48RXGTMX1KOPP10 V8EsKkc9FSDhzBjq VA2fzKEjHVluEv7ihZqg uHyhAU0gJEGehouzJIEh xJ1iTZDoxKNtdPrgSL1x QCUbtwyjy331VlJm TXO8JCSsnGDtZ6RfoB8m WnUjOWYpPRJhZ4TbeTKv POzlM130CWwrYrW4VUJg cjTzD0VkGBScaPte UwV1k8H0Hp0vAl3hIf2w ZYZ1ZX09RW59jYEzg9R0 fAZ8Q3WxCOSfhnsnwzbv rZR4MYXuZLHglQ18 nONlYIaqCx7zm3I2z258 CMMhAYKheP37Zt6jwQhi XJDczBVHpU4hrduqn1ir cjogIzAwMDAwMDt0 WCx2TMPyaTmtPcUiFGG0 UvP7LDJ6cOTrkO7tdSif kuljiX0jQai+ODMgWWVh gmC4M0DsAow7BAOw hCoqKR9voVUqFFruLp8f nRlazQedYA5hCWBmjway LERdjO1xYFIliWRjjEpx JX7iCGQgudjox168 BuLqPUH1CVYszBGiT9Jy iO7jJaAgQSKrJWVqZ2Le cYZiUSomV457GTxyNtP4 RPSvezSeR8MoBQNf bKtlJsQ6f4S5Vn3ALD0B CBF5U0XkJkc4VXJwkBsm PN8dcACfQKyhTh9lsPmk bXifCG9oWSSpoolg MOKxwL3iWIPrbKSlfZrc RU0vBKNtzlrew166ZbFc MJD4YUJynCCiC8ZmoF3v FkIyBWHcIOPgT0Ny zZZtOKtdE099AImfZcM9 YJKuyrCpJ5EwWFBfuClu AtO8m4I4Ci4YUMtqoQE+ MN73zp88X4AlLyjt Uln7ANLcXOS9lMP3fM0z EBEkCXkds1T8qRD4M1Yj efVugf7ex9nlYTAhRMbl P66sqURhi9B8BQRr qTH3AVAyyBvnTqLltN15 Oyc+LKVzfAibk1IjQdgu g7pdm0vgwEd1VfMqRCTy etQfhLwvXRR0r1Ii Md33X61nPGnnXSHuGVTb DLPkTFRggKdmzr6rhN5k Ii8+GCFimNJ0mBX8rB8i ErQzBfC4AFuyN416 AwNlhYLlBnblt6hje8oz pSg2VsHhKXLdvjUfiEaz MLY0o9QiYh01S6PrpNca j5KtRdc2lt49uZFf q0W9qWN8H3CeSUXgbttc kWGctVsuFM5gRPQuplvr MAMxjG4fDEYcH6o2IyIp HoJ5XUjoF4GfcyE3 QGJenBHrWOThaGYHkH6h mitrm4vjojbiWcIcMUFu JHu4LYi6OTXwbMiqDlPt GCC9FdT8EBG6rNZi xN8jvIsgfkxpxK0qHio+ PNx3f1xwwBHwKL6nvHJ1 BJ81VB87fESik2L3uGH1 P8CqOSGjlnfguefx iCP5XXEbXLYubA73Qf0g nUhqRz3mWYHqWTI3UPMb fPHpA8UbuK2xVdCkYRTh TKKlB8PjmYBpZSej O777KAndTgV0CVRbykUb V1TdOOZpyYnvCzJ1n5V4 Hr1RPN97DG76WA97tNJr z5L7qXZ8P3TmTKOk hldvrletfRQ2WGXgSVDt qE44Go3brUhrJg0pXKVz LIZ0PGGfjHAhH9OhcP3u RaGaJZGwLUNnT2Do mVNfXIbcY593PHswQjN6 DXXnqfGwM2XiVWNwkPic FjE0z0A1Df6KFn88UE07 ZT90eZQqd0B9xFH9 W0HeNXEmwdpjzsmaaZE9 NGCdBHZuvA96Jq5ivOcz Na8dGUYxYOF2GXQvoBEv R1JnbI3wLcEnOBDq BTIeV2WlzTNaXGalE656 SVqmLdC1UWCwapPlM1Zl YSXhwOwsFfT6v8J2Sm0Y DZpryfi9K9DtUhhe dHI+BS19FMIvIJ48dOZm aPEwl3axvNi3TgGgFEDp MTH4kXkcJUlej3MfNGTm C14voLHex6Y5KUDr bGx (more content not included)... [facility] Coding Summaryon 10-15-2022 Coding Summary HTMLBase 64 FgkhxidhTCl8wRs+PGhl YWQ+MP2UAYOlP05puFHj fO0BI5dLTE1XJRBHGIHX GU9KWO2bgOA6DFaxJ3Kt biAv PerkiOUhVA04XTr7KVZ8 qGomVEfdiE5mbFOvR6a0 QdQwXK40aO38VKtdSGSp KoX6RmPfxvcycGYu Z9jkOnBabJAxQjs+PHRh YmxlIHdpZHRoPScxMDAl QnBenEzqWF4cMx1sUEUp LWNvbGxhcHNlOiBj u8aqXGMeOXfiNM2tgHal D8LctZT9WCKdk8g9Pz56 dHI+DKHvHRP2zFhpGPat l220YdFxr4phJUE9 tOWqESrnNOQ8Z43rs3E1 GXRwEBOyQUG0rOE7nT0g tYzoazywY9HrpLUuMxX5 UAL8bWJrsM1kvIte zpvaaJ9tOcx+F72RYX1U OOKSAP9HVbj1Q6VrGzxx dHI+UU56HYInXM89mREg wKJxm7scpFe1KgBi FPMmMOP7oOktICwfz0Ij AMSlH09adYXrq9V4JNRk rZydgEJtWtAmyCJ7nB0o FIwznzqma7txjncu Tpfzm4meug55gF14N11j GEiyAVGbTEA9DHDmJTFw cNpqkx2fkL5nFp2+IDxj r3byf3kioIj4FuNg GMUwwxRmzWhmQUV6s0Ha Id36P3JliZpmw8AnXjw5 yp39cBIdh7H1oUQ2TChj EVSlzS3fCSnrGxJ0 NUTeEcNfuD01yNYgIMxs If2ljIpfyQklBH5wQJWe eibzYEKwoL4oORBbyZSt rSzsSK6iPSSepbgt h690CrDpVCY4BBKucTSh U5TfiV9uQjTnVJGsVLXf V2FokDIlJKoiK150YDlb YwF3XAYabjFoB3Ep YEWuqKciTjJ4p0Z7Qh5S l0VpeoymUUL4WEotTKBm WiQlDlZwCiV0B4ZpCgv9 RDSuhCkqLN8aP5Yf QIKtukxqpsmbdLX1UKRq KAZdnJ32oSKlEIjqKx7s p6Q6m683RXFgPZJapC38 Rl5wwZazKZWgpVSZ pL8ilwoct7poyxouAtKm RZJvEIb2OJc9PULemBkn NeGeWNW7RvO2CTW3aQSo fE4amIpbdvfoyF8z Oyc+O89juX2eLAA4PDS4 xwezLHVgagVbDC64BB14 L2KqEnmgiEZbxPQ+PGRp ywUbsQntRN9wFrFm t8coo2IdMBenN8XkEFDh DXykFrb9ERReOQR1bLD8 pV4oVHWxEKqen5C1cOT6 U1ZvivMyav3mc1ni HWEvTXjjR50njQNxq9Z1 EIStmAS7FXNwsDxyPjCb mD32Awi+BMCxpZzqu9Hm Jmvhl2kyi4inhYq2 IjMwJSIgdmFsaWduPSJ0 x2VbSi82N80vEWcwIENq YRNlNZRgJXNduOdjqg7x fP3gJx2+PGNvbCB3 sMK3dY5xZBUjUhI4ICqk K694EyMmlKBbBruib9nj t1otaNm7WiWvTYLxiwVz pTnkULD7a3YoDn61 P01rHOuaMEMlQZYgXGWu ZXFruXftum6uyZ7aKk4+ CL5yr9ytgy34rJ17rJH+ VPGwLVX7tWyoQBcq TGCslE9hHMxvAxT4GHBj TyXhnH48yDXeDQxvQq2i vUxnyOoyEF4zSACjpfni x418HpTjw4ahOIWf bLQoBNkvJMQ9H06uf1D9 KXLbPHQpNUW3yXZ2dI0k bGlnbjogbGVmdDsgdmVy dSnrRUjqVZvaN610 IHRvcDsnPlBhdGllbnQg XoHkITt0U6ZbEnj1DAPp zEixKW8mtKWlZRgmWm3y dGdicWmcFZ4oWGRx dmdxb956ExYym6rnCZLu lMHjTZroQAH5B61qi9R1 IVNhUXReVLB5mLP3oN3w bGlnbjogbGVmdDsg shWbhOfgENjpOQauS492 IHRvcDsnPkJpcnRoIERh jUN4HL62PK54xVCke7Y4 rOS0Z4FtXRDgxswm lkvfoDB6DPZjYFUqhO74 Me4wwIgsAt6gJOEdXCB4 HSXbmNSsB1YrfP5wViCc HLVhXVEmY4KkeIKk KLwtL246SZgqWuN2ZABv ruRjN6TzXUKbpQnmMuM0 r2A2Ji9LH8R5FN63IV01 oKGwj6N0wYI1O9Uu CZNhpqdmzfrytVQ0EXMx MHPnwE96Jn1efPjqSo8i CGPcBEN1AHYdiIXwQ2Cs xK5tJrLjXAAeKWPw Z7ArtZGlVFqxG486DHzd YrR1CHFoyzYsW6JwUTZb vMxjGdZ8r8O6Ao4GCBr2 PH68GT99bIIym0H6 jVU0A3BcUIHufzcrphdx fRZ4YYZoJKQvyH56Cw2a jTnsNd2eAQAgNXF9TVGv wPUwF0FwvK1fRiXw NOYzZETaW4XbjNQrOSyf K611GAfiNkO3FOXgjpFb V5KfMCHrxKtqOkM6a5L6 Mw5EHJZkEX86NUM3 nDU7UE25QJ62O7XiIkbk dGFibGU+PHRhYmxlIHdp ZHRoPScxMDAlJyBzdHls NM0pNd3vPIXnWREc iXlefGGwPfEji7ydOXUm UCasFR0xxLnoW9NxiFX1 JGAku1k4Xk11M03hX7Zy dXA+JGAxlJC4vKO5 sQ3eNgQeReC8VNuvB996 DfExeCRxBfftc7noz6wk qZv1AnR0MFQrssUokQle OQT0w3UyBc14K45z IHdpZHRoPSIxNSUiIHZh hMabaf6wiT0jCd6+PGNv nPX8zHK3wI9yWhUsSqH4 YChmC618ImEswHMj Csrip6eam9crySm0GmPw VOBbqaNgiRvlJME4u3My Xr91T6WgrScgn3UrCrh5 xi78nQYpc0Q2pJJ0 D7WxTDGlswztmTWvdKwi NX7oQXArcmqqDMFklS1o WSSsW4c9IbMgKmX1PLmg P6HrgnG6JMUjbOXw JXarSZE5B40ys5F4XNWg RYBuSTU8wGW1wX4qvQsu bjogbGVmdDsgdmVydGlj KKqgWNogO932ZZLw fUzyFXOqkQ9xJEKarPFp xXaiYM4tVDImosknSneS DGMSS50PNOFOA7EOUU55 Y6KvDxt6CBCytTge KU9ofWGhYQygMj6zcKtx wLijHJ5oWXLmnwbeHXXc uC8mLKLalNAuqWksIF3g MMUsjjsji893NaXi QBY6TUJapRSoB4LaoH7x JtHpEHGzLIRmN0CffFXn LPrmX112PJjlEqM4SLWq lbFgL2IwNNQcnHdi RjQ2y5M3Sf8kOr5kHt5s BID9BQ88AD23eFUuf9L1 kAE8C1UoRJKyakjbvkhj gIH7WHScUPRtvM69 wGKbJHqdEk4ey8C9v198 WKObRHVhrL19Fv3buYai VKHxvEYNuC7srftdw1te cjogIzAwMDAwMDt0 HQh4HUCijOqxFhYyRFY2 BiY2UDE6dRLboS8ivXoa aoxopY6zRcx+ODMgWWVh blN6C8ViSim2MPRe tLdqWZ2aaXFoIHfzCi7a dNluaYuoXL0cLAJruscx DOGyjO1nRDCkqLRgaJga DG8hEFQwzblgv782 XoUxJHR6MRUyqDSdF5Xx mF0bInItBBBuLMErD8Ri mGHhRYdeW242NGpgWqE8 NWZtejMrQ8BxSOSf sWpfQiV1x4Y2Ua8JLL9S HDZ1Q6ZlFxy6JATkcVqd HP8gsQMmJEsoHb2nsIex eAdnGR6fDOKxsmjz CRZmrS4pWFVqiEXasBru DY2pSJNxymwdp575JtSh MWQ8ZRUbsHAqT9WdyG2o HqPcNABpFWSqG6Vf vYAqZBogI510YFxrPqC2 XUZjxhDlL9QhQOEzxDvu UyP6b0B0Hn6OMCsbnIV+ GD82wx20S4IzQvyr Sit5AMFfQJB6wQU2aT4x TMHeAXfog3Y8cJC6Q7Py nnWsgs8ci4amWPJyLAit E09ioSYbw0G7HMAl bKR0CNEmhIwbAkIicU54 Oyc+JQFrvBlso8YkLisz e4vzn5otgFo2IgThYYPz bcXenLeuGFE2q2Qo Oa03K73dEYrdSOLeWLOc UFDkHBBgoBztxh6rrZ2c Ii8+BNUduUB1pUC8hO6c EuGrYlB9NQokD746 LmDyhVAzVcipx8pnz1dt dJx0MfPiZCVpvjIgzPbk XYW8i8NmAd54Z4DfoQst x1CuPac9zo65pOXl l5P3fWV3S4JdMQMgjmrm nCLzyJrkVS4aKOQjttyn MLIiyB7sUWXxC8a4JxVb JiK2MOzlC1JtvqM3 STXfuOYdQLUkoKVRcS6g fmfci3ntnwauMgXtCCNj OUa0EUp6HJUqmPihUcPu ISP6BqT5QWP4eCVk dF8wnEdakcsuzN6jWmq+ GDa5v7ansAOpZW1dbNZ1 AJ87IF49rVVtb1Q2gBU7 L3GmXZVpcauiswen oVB2NYDhPEEsuH95Tc5q jTciHi5fGADePSC1XSCi kHVaX7PgnH2kUfYbGZFd WJInP6KtgLDuSPrh P053WCdxJmZ5QTXvuiAk J4YlQIFxfUwxUpE7j1L9 Cq0PGW60FF28CQ00aREs r7H7nLK7P4NpYFEs psaohmhisZR0KVXsBQWn bX53Kw5hlBlpVz9mDDCf HFU0MOOqnIEgS6JvhT9a WgUbTTZdSFAaU1Ja nZGiMLheD268CXjpPwT8 RBHnnoXnQ1PaVRHozPtj LaY3n2P5Ys9EGm39BT71 LG50eQAsd2I5qLP6 N5OxNYCdevqxhtxgnFF3 SVXlVEVvwS17Uq7csNkf Vw0cNOGeFTS2DCVdrHTt Y6ExsF0hIfTlQSDz JNSpC9BbnJZqDKxtQ993 YIjvUmQ1WMFevlOcH5Yj XHCgmNahPpQ8u5D2Qd8A PBuveno7A0CqVkhe dHI+YZ11FGVeYP35hRSs sOTms2kdrUf6KzAvFADv IVQ4lJenHZglc8InQOKs O36wpSCbd4K2CMLw bGx (more content not included)... [facility] Coding Summaryon 10-11-2022 Coding Summary HTMLBase 64 HaezzqndURt1rZb+PGhl YWQ+PP3MJILzY41qmVIq lG6OP3gNSX9PFZULQLVZ CQ4NUJ9xqBW9QSjcS1Qe biAv CvscqOScZR81LZn0JXB3 zLsaYEjotP9moDZzG2a9 PeLqGJ53pQ74GVwdVWCh PzK5MbCpbnioyGZr E3cwQrFirZGrXqq+PHRh YmxlIHdpZHRoPScxMDAl AgCxeAuhHV2yYr8dKGTd LWNvbGxhcHNlOiBj v6cmWPDiHYluFX7tvYgn C9NrnST9LTKjd2w7Me01 dHI+LLEeUWR4rYavMJfh q177RjCzy2llESG6 hIQuBIxiYWM3E65vx5M8 EQScSIQgVWR8eYI9nX0l nZnzyjzhW3BedPDjXcQ3 XRG6sQMzyD3gtSft zsjmsF8xKwt+V64HSQ8F JBRWOA1UNmv7A1UjCxxi dHI+OB70CZNgBG99uTHu aQUpy3bimMp0EtAt FMPyOXG5oTrhPNyoh8Wn LVSeI72tdZEwn9N2CNLx zHfoyCVkGkNjqVP6hE7b JPwyuraah6xcaykm Xccim6fjjx83uZ90J71k NDbtDELkKDK0SPTaCRQp zYejkr1vjX0pZh6+IDxj p7spd9vpyLw2CgMz UGEeeaOcnKzvPXR6f3Tr Mn08X8UmkCqbz6VjBcn4 rd86zOYzr4P1sDD2WCeo QHNteA2gIBrhEtJ0 JBRpWnXssZ45uMZfFEac Rn2wyUshwLckCK9mTFPg zgvtHWTaxG4tVQTvwOQw mWpaTY9lDLLpgdrv m067PrNgXEW5OJFdjWBz I6VwiA3tMmOpCXAeIYQs Q6ZcwPMxAKhkO059ZQrz MoV6JUTwfhWbD3Iz XPOonDswKoD0o9K8Gn8X u5MkwucuBQA3EOecASAw KsF7ZoUbApF5R4TkYmu9 JKFilFovDB8rS5Bm SCQpuwozouhnbMN0XQUb FZKrlH38tAUoCWeuUi3e p7J0p033LTAtWJNasN00 Mr5slHxiBEChbEQP oN6hlkfwr4jkdnhzNdYr ZWPtASy6UBg6KQTbrOhs JwRhKRZ3HvY9LYO9rJHi xJ3ciPwzfydycC5v Oyc+X58ubI9oHZR7JUW5 ffshXTKcdaOeOL30TS67 Q4XvRbhvkSHxgXZ+PGRp ebTihYtfKN1sXfIw c6mno0YaOGrtG9GaBKYr QEhgYbh0NXYqKKM7bDO6 iC0qUYRrJNwqm6P7xZX6 L4CuzvXkql7hz8qh SLFoEBjiJ16evESnv8Y6 NELjsKC6JASupKcdSeNp qF51Sjo+MGVvtZujc8Yq Qsixs2nck6kmxTr7 IjMwJSIgdmFsaWduPSJ0 h7WlUm12Q86wIHgyOTQb GIIoACHsTVWhaVdedv9c mF1ePn3+PGNvbCB3 gNN7wZ8vFKAcGaE7IAzb E624OoGrzZRgFsxww3si l6ztvHh8YvZeYHJnpgGn bBviBVQ6f0RfYv04 F16nMJajZDLnQIIqLVSo LPNczTefgp5hpA0nEn0+ UK3hj2qbwj95eV60cPU+ YFLzDXU8oGdbONgu HUJhyT1wBZrtPqT7WHCb NsBsdZ63vMDfCXhtQt5l qGstlHivJM4sJHSnsmly s634TtEus1naZWNl tFJmVMzgDOR4M75uc1W5 LNUkKSRjJYF7gFF8mG5f bGlnbjogbGVmdDsgdmVy eIjrHWayCDblG804 IHRvcDsnPlBhdGllbnQg NeWkLWw6K8XpHdv7SOEn tTfrVS9tmSAjICqtRb2d jXsnnJcnBM5zRMIu ubguz840TtZlu6kdPJXk oIOcAVxuSMQ8G23rd3X9 XMMwPNGqJNP0zRY4pK0m bGlnbjogbGVmdDsg pyVgeVslLCekAFbaL484 IHRvcDsnPkJpcnRoIERh nZY4MR18SB04bGZno3Z9 hFO7N8DvPBQvyshf osrdoPL9SHOtTHZioW19 Rg9ubVxuZd6cNOUaMOG9 HRXziSOcH8CfqG2tPcUv ITCdOGVuL7IngOFh RMreV804VVsyInP9ITMv mlCsI8ZsRIKroFfqNsG6 o1A7Sy1RY2O5GA97XS32 sXHwr0Y8bJY0W6Uh ECLldiuhxcisbCZ5WMJj AXIxvX75Og1yzYjqQw0m TZJcJIP0OFVdiDRbS4Fs jB5lFaFfRHEkODFg M5XhaKKdTPdwP766PBtc NtD0TDDedfOlP6LlREHb pQrvJhC0m3L7Tx2CWYw0 UV67ER97hIOed6E7 uMD4D6WcLHTyuappnwfe yVR4LVWmWDCllG72Sp1i tVvmFe2bROZzYHT9YSRq oUQtO6TypM4eFnBj IQAxDLJlF4NnfGSaANzh U056XUojUdR1UYTrtmLf K8MkLDUczRqxJxH5a7Y3 Bo3LDRYxIW88JUA2 fNU3GC34RC34W0BcChmp dGFibGU+PHRhYmxlIHdp ZHRoPScxMDAlJyBzdHls LX8rXi4hDCCqNXTj aFtugBCbSeAja3ffVJGu MDeoOY7ejRtmN3ItgXM7 YWSkz3x0Ea74L81eT3Ic dXA+UXQhnCP6vWB7 hC3yYoYnOaC0XXunK560 KxJrrDRjUofhg6ofj2yg kYy4PaY9EFAxpiWlkUcz BNL8i1OzYg74T96q IHdpZHRoPSIxNSUiIHZh zHvnut8guJ2wXy6+PGNv jTE5dBS9wR6eDnRxFhP6 TBggU733HiSjzQOa Pnvhe6bto3iyrXd4RdJx GWNulsEfnTilRNS1d6Jo Dk98D6FxoNxxu4OjJgw2 nx60pTOyg4T1oMP5 G4GmEFUrepuqrFSeyBjx JH6lPUDhtohhGZYrzV3g OQVdO1w8OaHsDoK1DZwf Z7GcriW8IVMnoPNw PBleZTG3X48ev6A1EETa ABAlTDB9oZG2yU8ipJfm bjogbGVmdDsgdmVydGlj EUqzVHpxJ795XXVd tYxeZYVltP3cGIXebJGn wXbpCI0mOXNgxgvwJsyJ FAVDB20XRIHYD7LNAO25 M2NoFkf1JNNmuIyp RJ1uwQJjEStuFe5pqWfd qNoxTQ2yTJWoakttUCLd vJ2hIFHjaOFsaDuwJM0f VLWtxdexe979IjDr ZIU8AVHehCMeC2PgmU6c BhNoUKOiJQLmV7SlgPNq KBmyZ834NJqoXaP0HKWd joZyF3DmHALkxXzh GcH3f7O3Wl2eDa6yUb2m NLN6EV98JZ25iRAby8G1 bFB1R8DoRDFbzdblcwxe uQI0OSEgEXRjwU11 eVQcGYyeTr0sg0M8e659 FLBbRHDywX16Mp0txUta FMQjaRBNtP9cjzhxn5rm cjogIzAwMDAwMDt0 QLz2LUGiyLjbNyPtLDE3 VrP3GWG4pTQveO3xmQdg klxseN4vWfs+ODMgWWVh qvL9P7IqFqb3HKBy zWdgSO7nzFVoZHmlWm6j lComsKmkHG3dQHRzjcpg CEIsrP6uFVDshNQxqEqg IF6xGTQpyvpoc994 QmTiMIS6UENrzSQvD4Jt zF0tFvEoIAHlSNYoI8Je rJQvCLncX848XTcvDuM3 IJBojbQhN0UgUNRz pJaiNrH0f2I5Lu0NPK1U VFA0N4HuYfy6PYMbwMft DJ0ucRWyYKvyPv5haAgy vQnrBN6aXQAeggwx UUPbxM4bAKZwdGEiiAto RE7qPBJfcauxq748GiOy RWL6QRLeiDOuY7XkkT5m XcLvDHMfUSKsJ0Mx rKXcZNtmB512EDvfXrM8 BOZcudKuK6IwUXCbiSoc LyR6c8T1Ca3SGTzxbWV+ IO15uu48K7VoIgaa Oza8YRZqFTL4lEM8uY1d CRDjJJozd2N2mQK2J9Up biSbva0wq3dyKXUdHRjo A92zcPBff7Q3KUVw tEL4YQChpIjfDtAcpO88 Oyc+WTWdoLnvu0YpJpor d0gwp0qywPu0ObTwMXNb xbUscNoeMUM8s5Cu Jv59A95bALzzKEXaOBKk YQKeMEJpmAyjst6esR3v Ii8+FDEfrQM9vYU4bA7x HfZnMuO7ICihJ516 QlXspNQnSrtlq1uqv9pm dTh8WgKnQIPyqdJqzMws JOB9s3AmKq94U9DjnYpw u0PmJrj5ni23lMYl i2L4bHQ8H4XtPMGnykre aSIkcBtqVD0zLRYkmnxo XNDlrM9zTUPaG8u8ZhLw DlO9RTdqX1YuzrJ4 IDDsaBZrCKLtbAXNsF8q onmmm9gnmnnaDsJhYNRx PIf9FWq6OTVnfZewWoPk OTG8YcZ3TFR9zMKi yT3xyCeqlzqraU7yOez+ WQi0y1spkTInWA9gfTY5 LY50ZI60kEHfn3P6fRK1 G2RbDXFtpwnzitda wRB4ICQmFJMfjX10Ru4g rKszZn6vVGKdSRR6TOTu tUDtO3YytW7nFqAwNXAp WAIjU8NxdFQqZKgk G600BQbqIgQ3FUWgqaGx S9DwQNVadFtkQpG7e6Q8 Vh0LLZ26MB81HZ84pLNk h8O6qGI0S5JqSCZl bfhejrimfFR2KCJuEHXm xU05Hm7ulXioEk9eDPXf FNC0YZXybYWiY7OsrL1x ZyQmZLOkGQFbQ7Pg vIHqNDxpP603KFnjJiV3 WCRmfsUcN6XcPMLzjAvl BxV1t9O8Qo6TNc01GE87 ZZ49yUBdb9S6eTX0 N0UgBTNixpgfkyzjoUZ0 FHLyZQYloF09El1diScg Tk3yKRPsXCI2RRMreKPw S5KrpV1kOlFtWZYu EYVuJ0OrrEPlIAqyX911 DBnySgC8FWFhiuRdY2Ue LUDptKkrJxH4q3G2Yr8Z UFmxvyu7H6TgFjxj dHI+XH85FFWdGA76sRCj iIMly6vewKf1IqCfLWWa DRV6nMoxNBwwf2AjHWLl A74vcZLex3Y8PRNu bGx (more content not included)... Normal [facility] Wound Cultureon 10-11-2022 Wound Culture Lt lower leg, 1406, 10-05-22, AB Moderate growth of Proteus mirabilis , Moderate growth of Staphylococcus epidermidis Normal skin kirsten isolated No LORRAINE performed on this organism and Moderate growth of Streptococcus viridans group Rare Gram Negative Rods No WBC's seen. ORGANISM Promir Strvir ----- SUSCEPTIBILITY ---- ORGANISM ID: 1 ANTIBIOTIC INTERPRETATION LORRAINE STATUS ORGANISM PromirPromir Amik S <=16 Verified Amox/Cla S <=8/4 Verified Amp S <=8 Verified Amp/Sul S <=8/4 Verified Azt S <=4 Verified Cefaz S <=2 Verified Cefep S <=8 Verified Cefo S <=2 Verified Ceftaz S <=1 Verified Ceftri S <=1 Verified Cefur S <=4 Verified Ceph <=8 Verified Cipro S <=1 Verified Ertap S <=0.5 Verified Gent S <=2 Verified Levo S <=2 Verified Nitro >64 Verified Pip/Virgilio S <=16 Verified Tetra R >8 Verified Tobra S <=4 Verified Tri/Sulf S <=2/38 Verified ----- SUSCEPTIBILITY ---- ORGANISM ID: 3 ANTIBIOTIC INTERPRETATION LORRAINE STATUS ORGANISM StrvirStrvir Amp S <=0.06 Verified Amox/Cla <=0.5/.25 Verified Azith R >2 Verified Ceftri S <=0.25 Verified Clinda S <=0.06 Verified Cefac 1 Verified Cefep S <=0.25 Verified Cefur <=0.25 Verified Levo S <=0.25 Verified Pen S <=0.03 Verified Tri/Sulf <=.25/4.7 Verified Tetra R >4 Verified Vanc S 1 Verified Normal [facility] Comment on above: Performed By: #### 6 [id number] #### [facility] (DEFAULT) [address] [id number] Coding Summaryon 10-09-2022 Coding Summary HTMLBase 64 ZarivksrOMn0fRb+PGhl YWQ+BW5YQQTkV68ykZXq lM1AX5rELK2CEEQAEBGH SG3ZRL9rjON0DNxkY4Hq biAv ZswoiSMfPW59FLt7TWN8 eFmpEBvvcG6pzZMuF7e9 JrVtUS97pQ95QSemQAHj WuW0RdXbtctldSMw J7fcSyOuqUTnIyr+PHRh YmxlIHdpZHRoPScxMDAl McLmpTnfNC0wKs3nKMKk LWNvbGxhcHNlOiBj n8zjVXZiHDhmKL7stEhn O1AwwIH0EAAfk2v6Zo72 dHI+ZQTnBKF6lHuvAWoz f756AyHvj4qzGZI6 wRVmGLkqWUR0F31wf2V8 YKHfJTYvEDN9qQZ2iB4p kSijuqzxU3YnxYFaXcO2 WFW4jSAmyB3qrQaz xelmtQ1tIdo+D96QPC7R ZSCEIV0YQpk2Y2WaTlyj dHI+OR50TQPiLM25oAGa vCApx4tkcIu8EcAe FEPgWMS6lNkhLUkcu3Za NUIzA88zjFQaj8I9CNFd fShheFHaRqDhtCL8nM4t XJqaawdqu2scaagw Bfofh7xsdr71rI39Z81c TPqvODNyTRR3PVRpNLOd rChxmd9diO5jFu2+IDxj f6yfs2nagGi4MePk OAAjmiPvqLppSFE0o4Lc Mr37W1FzbIskx0DvHfc9 sn52aNUew4H4wGP4TKxt GXSgjS9oQOkyDiQ9 FSJnOaMtxS41bDPeDGqm Uu6ahGtonUegGH3pTHTh eatwGEOeyP1qXEQygRQa uUpmFW9fTJUxxzsc r812UeUvEOG2MWKcxMLo S6OdoW4uBbAiZGFeUVAx D7XvfVCbSFlyJ133XUog LwI7RSFcdtZdU3Gp DTBqoPdpJcX4r7O4Hu8O n2EpydbsSXE8OKwlJZWa WuI2GmUhGoR5Z4TdZel8 KWOawLgfIU0rK8Eg HMOchxmyndqziON3OJRi PFYuhX65nTNaUFrfHf5u i1E5c233WMZuTULakN89 Rx3mqGfuUGQnsYNT iZ5odptsk2sqvrfsXxDo VBIjZCk2VNy7YQGatJdf KxMwIBO5KgL4JUH3pNQb rQ2zaVlqdbyswW9c Oyc+M00pzN3kPRB4YUJ1 jgoaZIJkgtDwQQ71WB30 M3DkUufhsMJjqLI+PGRp lwOpsNrfMG3uWkOv k7nvr1YmMBvlU5EkRCZx WFeqVij1PUChKGX6eXF3 vP7pSFMdGAhek9B9hSI1 I6GsdzGqyz7jz2fh RFInZRqqV59xxCOno5B0 RXCxsVV8WXVwiColLqGg nN40Dgl+PHFwoGypk7Rd Runxw7ouw8fcjVg1 IjMwJSIgdmFsaWduPSJ0 k3QbQf74P82wEKvsXADh DTKbEKQiQJOpvOxkur2z mX2gUo3+PGNvbCB3 tID6cD6sKAUyHiK5KNzk O950OvGlfEWqZwvmi9ad m5oeoIw3TzQiBGGghvKh tQkuDYG9n5QqIt81 W36qLVvnBPDsQYRtXCFn MQUteHpzcb1mkH6oGg9+ FG1bw2ymei44uK69aYS+ PYIaJZA0nAjoYKed GMPszF1jTGgbOzW4SPNf YfIjdT29aQRiBOkqFs3h xIwxlKlfIE2eJKBvhpqr k922BwAux0ykUKUj dBAqNIpeCKS1K06si6R2 WEDhRMFoQBE1iUS7jG7z bGlnbjogbGVmdDsgdmVy lKxnRUxcFNeuM562 IHRvcDsnPlBhdGllbnQg JaHcRAo3T2YjMbs4OIQs rAddEF8xyPUuXCtmCw9u xVchoNvbIB8qOLDv ovwye367QsYzv7mrUSAb iPVcMQtnHRY6N35eq2G5 YRQtIOJcQYO5jSM3yP7i bGlnbjogbGVmdDsg blRdzMqdLVhuWRjeN347 IHRvcDsnPkJpcnRoIERh iJW6BO84OU27tJCyw9R7 hQJ4U3EiGGCisnhr sbncuWT5EWRxWETapU90 Py7jyCfuJg4hHZCcQLB9 NKWzqEMfP2WabR2qRfLz FODjSXBnY0LmrVKo TFntJ398CEawRrW6SUKj coWlR6LcPONkcMiwMrI6 r8H3Xf8GX2S8NL20SF31 pEKiw6L1pRF8S5Ds WUBmnroiohebaPP1PMOu WCGreF66Oj1ctNadOk7d CEUkRYH1CGJccCRzM0Uu uM2xLwSrXWQoFZNp N5EekYKcKVyvO838XFvd JvS1UMPwnzGrT2VtBFIa iCqkLeD3h8O9Gz3ZIJw4 AJ75CT41dHHub4L1 aPR4P4WmPLEeydhxyxcb dVA3OSEfNFTtuR90Vl8u xJitOs5aQYCrLRL3PVTc zQJeP1VwzK7yFbLz DJTfCWWaW3AcxFBcSQql B616DVsbYvT4AQVptyHb F2YiXQKtfHvhGhY1w3Y5 Kk2TQRMnPV76VTF2 aBP6DQ83KY96L3VnDbjd dGFibGU+PHRhYmxlIHdp ZHRoPScxMDAlJyBzdHls PI2dAi6sTCNlTCLj zGyruPQtAeVah0tdDLJn JUkbSF6hlHzgW6EveKI1 JSIuf7z6Rb00F48bB5Gh dXA+MATcgZS2lTT2 uF5eLzOsHzF9KDegK336 FvMjiNKtOoyiu3qdj7gv qLq7DoZ5NVGqbrYwtStv OVF3f7IuXc48B26f IHdpZHRoPSIxNSUiIHZh tOhoxt7kcM7qCc0+PGNv aMR8kPW4mQ5gCkApAqI4 OPrnZ868KzCqlBUz Vfgsr0bhs5zgbMf8HiIy CSJhkkEslQovGJC2t0Pi Ch49V7TwmOhfi7OcAen4 xf57pILqo6X2qIP4 M5JjFBCkcirsiRBxrDlt AI4cYLUgmtuaQOPqwC5m QPFsG8z5VdVnBaM3KFtn S1EfoeD8KMAnmAGv LYnfPRD4C65mj8M0WSUt JFRcKEV0pJD8wS6fqRjb bjogbGVmdDsgdmVydGlj LWsiQDfrC701KXVn aJotJJOulL0vJEWzcWHs pKqgZU1gINZbyvnbMdbY OGIIX37TTXWLR8KFWJ96 I8FdSks5ASVakOev IG4rbFWaYWdgYm2xhTsh vSdaUD1xUQTlauuiXXWr aA2cWVHrpCTrsTfiGC7w WEAoxsodr514UwVi YTD7UTPadRJaZ5JquL9e EvDoUPAzILBlI7OouUCs NOvlR844XAveHoQ8FFVe jvCtJ9PbCKUzwCxt MwU3t8D7Pq8iKw6vBq8e JKF4RU39WY68ePHeo1I6 dJY9O7IaQGCcxlrwkyfm xBH4RWMlSMHoeV59 zDHbXHemNx3vc7B9o624 SBGuSXKkvP45Ex1lnLct APWyfJZLhV3xmklqk5rr cjogIzAwMDAwMDt0 KCd0BWRczWekHkIvTJW2 QiO3DLN7rESktI6hyCoa gktolE9pNhi+ODMgWWVh xkR9B7NcVug9MYCb vZqbJW5jnSUpAWnrLx6g bMbckYhbHG9rYIWblmyo UHZyrE1oFIXgeBCkcRyu AS0xPRYvbytpf860 GuOyUFP9JEFlyKKzA9Wd bT9kJnPdIAZcZJDmY2Ie nHMbOSspL128NRmrOcY1 NSKivsPpT2AbVFFx fZmeVvZ7f9T9Mh2CUK1L PIZ8B4PqZnw8PCKchJef BB4ekGYwALzaPm7gtEfi vCxfDT4mIYLzueab PTAueG7jLREcvHUeyJzs AU0xVWDphodyw762TaIu DQH6ZIRmdLQjS2YteT4a HhOdLJLyUQIqW4Ru cZRcZCtqY903ZRnvVnU2 TLHjweImN1MmBPWktNjb QvJ0e4G8Fg5OSZjwpKV+ YW57vd83I7LzGkfv Doo4KSThNQU0tTZ3qG9i VMCxZMneq3F8dBB0R9Cj jxDdnq4ro2sjPQPwUSso E75icMKds8A6TUJd mPA3GZFehDusThHvbH12 Oyc+GLTehAayy1SpHmcn b5bky5xoeYd4UfSiLRSc kfKpuXduHLD6y5Og Wp38A14rGHxsGJRbKFWn EVTsVJFyxHnvkp0agS5a Ii8+MOSzmET9oGV6kI5w UhOlJuD7PQajY945 NbBsyHWiMcrqn8oss4ij aYm3AsVwHGEmiyBtoMtn JLL8h6IuFf90H8QqhPzr w0TtNbr5gw14xTQf u6Z5uOE4O7DzYPVgworj tESnaFtuQV3rVSTceutf SCMijJ4rFCHxH1n8HwKw WxV4XLtdZ4RtokS8 KDVmlJHlGAIofXLXmH8e oxyaw0dsrexhTtZoMAGb RQg8GNy3MTTyzNpaLsMj VKZ1UrR2YTZ5xSGs nV7crFvkclkfuD2aCmn+ OPx4u0wrlCNdGO1viVV5 OK06RK19xGJkp5W6jNW9 B7MsEVQljbhmjlhm nLQ3VGTxSHYvzP91Po7s jXupOj0pTOPeDGZ7GUMm jPChP7VmbD8lYlLwJBOh ETPrB2CzqLKdMWij M015ZUwuAjX1YDPtzlDp E5YkFHZdjYquYqR4n4E5 Jb2BUO46GZ88JW43gXGz u9Z1jFN9W2SvXSNq vqhjztnfySP4UNDqQIVx oR83Cf2prWpoDz3pFGSi ZEE8MBUlzTLjO8EetE1a NqJxHMOsXQRgU9Xu qWAoXUyeW698XIxaUnH8 JGTnpiSmO2LhWTSvkNlc GhA9q6T2Eq7QRe98OL42 CS56bEEzd3X8sKA7 K9FdPDPzfnwlfgjfzAU9 PMPzHPRvxW12Lq2edCfv Ye3lYLLbRTF7QALduDFb X8JznX2mRxCyIDPh OQXqC2SfhYYtYArpM784 YVpqRdK2KWGxgyFvP5Ed QFDyjEbsVlV2t6U1Mz4H SKzownc4J0TyPfjf dHI+ZV31ATLvEN70mZQa pWKwh1ijnOv2WxNnUBKu WAL9xJicBQdwj5RqWSXj V96xyXNzv1K3DWUl bGx (more content not included)... Normal [facility] .Auto Diff 10-05-2022 Auto Polk % 9 % Normal 11-15 [facility] Comment on above: Performed By: #### 1 [id number], [id number], [id number], [id number], [id number], [id number] ####[facility] (DEFAULT)[address] [place] [address] Baso Abs# 0.0 x10 Normal 0.0-0.2 [facility] Comment on above: Performed By: #### 1 [id number], [id number], [id number], [id number], [id number], [id number] ####[facility] (DEFAULT)[address] [place] [address] 42758 Basophils/100 WBC (Bld) 0.2 % Normal 0.2-2.0 [facility] Comment on above: Performed By: #### 1 [id number], [id number], [id number], [id number], [id number], ####[facility] (DEFAULT)[address] [place] [address] 44296 Eos Abs# 0.2 x10 Normal 0.0-0.4 [facility] Comment on above: Performed By: #### 1 [id number], [id number], 9074067, [id number], [id number], ####[facility] (DEFAULT)[address] [place] [address] 95062 Eosinophils/100 WBC (Bld) 1.3 % Normal 0.9-4.0 [facility] Comment on above: Performed By: #### 1 [id number], [id number], 4871365, [id number], [id number], ####[facility] (DEFAULT)[address] [place] [address] 04958 Lymph Abs# 3.4 x10 High 1.3-2.9 [facility] Comment on above: Performed By: #### 1 [id number], [id number], [id number], [id number], [id number], ####[facility] (DEFAULT)[address] [place] [address] 08313 Lymphocytes/100 WBC (Bld) 31 % Normal 14-48 [facility] Comment on above: Performed By: #### 1 [id number], [id number], 9435420, [id number], [id number], [id number] ####[facility] (DEFAULT)[address] [place] [address] 48294 Polk Abs# 1.0 x10 High 0.0-0.8 [facility] Comment on above: Performed By: #### 1 [id number], [id number], 1526122, [id number], [id number], ####[facility] (DEFAULT)[address] [place] [address] Neut Abs# 6.5 x10 Normal 1.5-9.2 [facility] Comment on above: Performed By: #### 1 [id number], [id number], 6456306, [id number], [id number], [id number] ####[facility] (DEFAULT)[address] [place] [address] 06041 Neutrophils/100 WBC (Bld) 59 % Normal 44-88 [facility] Comment on above: Performed By: #### 1 [id number], [id number], 0814410, [id number], 0596083, [id number] ####[facility] (DEFAULT)[address] [place] [address] 05162 BMP Standardon 10-05-2022 eGFR Non AA 39 mL/min/1.73m2 Invalid Interpretation Code [facility] Comment on above: Performed By: #### 1 [id number], [id number], 1459370, [id number], 1108403, [id number] ####[facility] (DEFAULT)[address] [place] [address] 76539 eGFR AA 48 mL/min/1.73m2 Invalid Interpretation Code [facility] Comment on above: Result Comment: Braiding Operator itzel Kidney disease could be indicated at eGFRs of less than 60 ml/min/1.73m2. Kidney Failure is indicated at less than 15 ml/min/1.73m2 Performed By: #### 1 [id number], [id number], 2440473, [id number], 4915584, [id number] ####[facility] (DEFAULT)[address] [place] [address] 69200 Anion gap [Moles/Vol] 13.0 mmol/L Normal 5.0-19.0 [facility] Comment on above: Performed By: #### 1 [id number], [id number], 6177308, [id number], 8678059, [id number] ####[facility] (DEFAULT)[address] [place] [address] 88178 Calcium [Mass/Vol] 8.8 mg/dL Low 8.9-10.3 [facility] Comment on above: Performed By: #### 1 [id number], [id number], 4837431, [id number], 3993354, [id number] ####[facility] (DEFAULT)[address] [place] [address] 81800 Chloride [Moles/Vol] 102 mmol/L Normal 101-111 [facility] Comment on above: Performed By: #### 1 [id number], [id number], 2902646, [id number], 1376559, [id number] ####[facility] (DEFAULT)[address] [place] [address] 77728 CO2 [Moles/Vol] 28 mmol/L Normal 21-32 [facility] Comment on above: Performed By: #### 1 [id number], [id number], 9345095, [id number], [id number], ####[facility] (DEFAULT)[address] [place] [address] 97821 Creatinine [Mass/Vol] 1.29 mg/dL Normal 0.60-1.30 [facility] Comment on above: Performed By: #### 1 [id number], [id number], 5085694, [id number], [id number], ####[facility] (DEFAULT)[address] [place] [address] 74710 Glucose [Mass/Vol] 132.0 mg/dL High 74.0-118.0 [facility] Comment on above: Performed By: #### 1 [id number], [id number], 3047967, [id number], 7696957, [id number] ####[facility] (DEFAULT)[address] [place] [address] 92606 Osmolality 287 mOsm/L Invalid Interpretation Code [facility] Comment on above: Performed By: #### 1 [id number], [id number], 7385760, [id number], 6100136, [id number] ####[facility] (DEFAULT)[address] [place] [place] [address] 15264 Potassium [Moles/Vol] 3.9 mmol/L Normal 3.6-5.1 [facility] Comment on above: Performed By: #### 1 [id number], [id number], 9610561, 4465784404, 5255913, [id number] ####[facility] (DEFAULT)[address] [place] [place] [address] 88266 Sodium [Moles/Vol] 139.0 mmol/L Normal 136.0-144.0 [facility] Comment on above: Performed By: #### 1 [id number], [id number], 7172566, 4489760099, 0653372, [id number] ####[facility] (DEFAULT)[address] [place] [place] [address] 98147 Urea nitrogen [Mass/Vol] 33 mg/dL High 8-26 [facility] Comment on above: Performed By: #### 1 6273771, [id number], 6598405, 1796853394, 0152310, [id number] ####[facility] (DEFAULT)[address] [place] [address] 58271 Urea nitrogen/Creatinin e [Mass ratio] 26.0 mg/mg High 4.6-16.2 [facility] Comment on above: Performed By: #### 1 [id number], [id number], 5007826, 9931631929, 8161279, [id number] ####[facility] (DEFAULT)[address] [place] [address] 44904 BNP.on 10-05-2022 Internal Control Pass Normal [facility] Comment on above: Performed By: #### 1 [id number], [id number], 8710474, 7414230138, 9964110, [id number] ####[facility] (DEFAULT)[address] [place] [address] 77507 Natriuretic peptide B (Bld) [Mass/Vol] 38.2 pg/mL Normal 0.0-100.0 [facility] Comment on above: Result Comment: BNP results greater than 100 pg/mL are considered abnormal and suggestive of patients with CHF. Higher BNP concentrations measured in the first 72 hours after an acute coronary syndorme are associated with an increased risk of , myocardial infarction, and CHF. Performed By: #### 1 [id number], [id number], 6560246, 4915165139, 0748547, [id number] ####[facility] (DEFAULT)[address] [place] [address] 19958 CBC w/ Auto Diffon 2 Erythrocyte distribution width (RBC) [Ratio] 16.7 % High 11.5-15.0 [facility] Comment on above: Performed By: #### 1 1006695, 4179273134, 2356080, 0276084436, 6401475, [id number] ####[facility] (DEFAULT)[address] [place] [address] 97221 Hematocrit (Bld) [Volume fraction] 42.6 % High 33.7-40.4 [facility] Comment on above: Performed By: #### 1 7052765, [id number], 3638666, 7641006366, 8592694, [id number] ####[facility] (DEFAULT)[address] [place] [address] Hemoglobin (Bld) [Mass/Vol] 13.2 g/dL Normal 11.3-15.9 [facility] Comment on above: Performed By: #### 1 9683451, 8177709656, 1015662, 3246140500, 4468483, 5122650216 ####[facility] (DEFAULT)[address] [place] [address] Instr WBC 11.2 x10 Invalid Interpretation Code [facility] Comment on above: Performed By: #### 1 5297916, 7603560050, 7807738, 2356778009, 8077405, [id number] ####[facility] (DEFAULT)[address] [place] [address] 89341 Man Diff? Auto Normal [facility] Comment on above: Performed By: #### 1 3190433, [id number], 9623860, 9558240523, 9063041, 3758042034 ####[facility] (DEFAULT)[address] [place] [address] 69015 MCH (RBC) [Entitic mass] 29 pg Normal 24-34 [facility] Comment on above: Performed By: #### 1 2883065, 0031520340, 1575013, 3833934296, 4046391, 9558934350 ####[facility] (DEFAULT)[address] [place] [address] 43744 MCHC (RBC) [Mass/Vol] 31 g/dL Normal 26-37 [facility] Comment on above: Performed By: #### 1 8117114, 2197202355, 2249825, 5386825289, 6276780, [id number] ####[facility] (DEFAULT)[address] [place] [address] MCV (RBC) [Entitic vol] 94 fL Normal 81-100 [facility] Comment on above: Performed By: #### 1 8223272, 6661823835, 9033328, 3756480760, 6719262, 5731249248 ####[facility] (DEFAULT)[address] [place] [address] Platelet 185 x10 Normal 138-427 [facility] Comment on above: Performed By: #### 1 0570623, 7360412341, 9933435, 0463360642, 6622115, 6441944888 ####[facility] (DEFAULT)[address] [place] [address] Platelet mean volume (Bld) [Entitic vol] 10.4 fL High 6.3-10.2 [facility] Comment on above: Performed By: #### 1 2191924, 3705785760, 8227380, 4352816834, 8756287, 4485087039 ####[facility] (DEFAULT)[address] [place] [address] RBC 4.52 x10 Normal 3.70-5.30 [facility] Comment on above: Performed By: #### 1 1673795, 8967172804, 1914799, 8671669200, 7791918, 1989189058 ####[facility] (DEFAULT)[address] [place] [address] WBC 11.2 x10 High 3.5-10.5 [facility] Comment on above: Performed By: #### 1 5173938, 2266120282, 8287761, 4686254099, 1411541, 1918480172 ####[facility] (DEFAULT)[address] [place] [address] CRPon 10-05-2022 CRP 1.2 mg/dL High <=0.5 [facility] Comment on above: Performed By: #### 1 2985852, 8922268693, 7297638, 0241737953, 0503612, 4367614388 ####[facility] (DEFAULT)[address] [place] [address] HgbA1c Standardon 10-05-2022 .Hb 13.3 Invalid Interpretation Code [facility] Comment on above: Performed By: #### 1 4828450, 4806998530, 1843143, 4949212989, 8310469, 4603464856 ####[facility] (DEFAULT)[address] [place] [address] .Hgb A1c 0.85 g/dL Invalid Interpretation Code [facility] Comment on above: Performed By: #### 1 0022758, 1486421040, 9878537, 2664239024, 7000627, 3606328056 ####[facility] (DEFAULT)[address] [place] [address] Glucose [Mass/Vol] 183 mg/dL Invalid Interpretation Code [facility] Comment on above: Performed By: #### 1 4927652, 4492352475, 2588248, 1744769705, 1116539, 8663790783 ####[facility] (DEFAULT)[address] [place] [address] HbA1c (Bld) [Mass fraction] 8.0 % High 4.6-6.2 [facility] Comment on above: Performed By: #### 1 1553571, 4789858919, 4300237, 8143892587, 0898453, 4838855900 ####[facility] (DEFAULT)[address] [place] [address] 39692 XR Ankle Complete Lefton XR Ankle Complete Left Exam: XR Ankle Complete Left History: open wound left medial ankle Comparison: None available. Findings: Routine views of the left ankle were obtained and show no evidence of fracture or subluxation. The ankle mortise and talar dome are intact. Osseous structures are osteopenic. There is a large calcaneal spur. There is mild soft tissue swelling seen at the ankle and foot. Impression: No acute osseous findings. Final Dictated by: Dionicio Ansari MD Dictated DT/TM: 10/06/22 12:54 Signed (Electronic Signature): Dionicio Ansari MD 10/06/22 12:54 p Technologist: JOSIE [facility] Physical Therapy Noteon 07-06 Physical Therapy Note [id number] .[id number] [facility] FERRITINon 07-25-2022 Ferritin [Mass/Vol] 95.0 ng/mL Normal 8.0-252.0 [facility] Comment on above: Performed By: #### F ERR, B12FOL #### [facility] [address] [address] [address] Breanna Heller MAGNESIUMon 07-25-2022 Magnesium [Mass/Vol] 2.3 mg/dL Normal 1.8-2.4 [facility] Comment on above: Performed By: #### M EMILY Glass, TSH ####[facility] [address] [id number]. Breanna Heller PHOSPHORUSon 07-25-2022 Phosphate [Mass/Vol] 3.5 mg/dL Normal 2.6-4.7 [facility] Comment on above: Performed By: #### P THINT #### [facility] [address] [address] [address] Breanna Heller TSHon 07-25-2022 TSH 4.584 uIU/mL Critically high 0.358-3.740 [facility] Comment on above: Performed By: #### M PAVEL GlassS, TSH ####[facility] [address] [id number]. Breanna Heller VIT B12 AND FOLATEon 022 Cobalamin (Vitamin B12) [Mass/Vol] 343.0 pg/mL Normal 193.0-986.0 [facility] Comment on above: Performed By: #### F ERR, B12FOL #### [facility] [address] [address] [address] Breanna Heller FOLATE 18.50 ng/mL Normal 8.60-58.90 [facility] Comment on above: Performed By: #### F ERR, B12FOL #### [facility] [address] [address] [address] Breanna Heller XR CHEST 2 Von 07-25-2022 XR CHEST 2 V EXAMINATION: XR CHEST 2 V HISTORY: Cryptogenic organizing pneumonia ; chronic shortness of breath COMPARISON: XR chest 12/18/2021 FINDINGS: LUNGS: Hyperexpanded lungs without appreciable acute infiltrates. Suspect mild chronic interstitial changes. VASCULATURE: No increased pulmonary vasculature. PLEURA: No pneumothorax, effusion, or pleural thickening. CARDIAC: Mild cardiomegaly. Loop recorder within the anterior chest wall. MEDIASTINUM: No visible mass or adenopathy. BONES: No fracture or visible bone lesion. OTHER: Negative. IMPRESSION: 1. No acute cardiopulmonary process. 2. Suspect mild chronic interstitial changes and stable mild cardiomegaly. Electronically authenticated by: DEYA MCPHERSON Date: 2022-07-25 17:42 Normal [facility] MG MAMM SCREEN ANNA W CADon 0 04-05-2022 MG MAMM SCREEN ANNA W CAD Patient: JOYCELYN JUAREZ Exam Date: 04/05/2022 : 1940 Gender:F Ordering : DR BACK [facility] [place]mission #: [id number] Family : Order #: [id number] CLICK HERE TO VIEW EXAM RADIOLOGY REPORT PROCEDURE: MAMMOGRAM BILATERAL SCREENING DIGITAL WITH COMPUTER AIDED DETECTION COMPARISON: MG MAMM SCREEN ANNA W CAD, 03/07/2021. MG MAMM SCREEN 3D ANNA CAD, 06/24/2017. INDICATIONS: Screening mammography Calculator Name NCI Breast Cancer Risk Assessment Tool 5 Year Breast Cancer Risk 5.20% Lifetime Breast Cancer Risk 6.30% Personal Breast Cancer No Personal Ovarian Cancer No Treatments None Family Cancers Sister with breast cancer at age 59; Sister with breast cancer at age 49. LOCATION: [facility] BREAST COMPOSITION: Extremely dense, which lowers the sensitivity of mammography. FINDINGS: DIAGNOSTIC CATEGORY 2--BENIGN FINDING: RIGHT BREAST: No significant suspicious finding. Scattered benign-appearing calcifications are present. No significant change has occurred. LEFT BREAST: No significant suspicious finding. Scattered benign-appearing calcifications are present. Scattered benign-appearing lymph nodes are present. No significant change has occurred. RECOMMENDATIONS: ROUTINE MAMMOGRAM AND CLINICAL EVALUATION IN 12 MONTHS. PLEASE NOTE: A NORMAL MAMMOGRAM DOES NOT EXCLUDE THE POSSIBILITY OF BREAST CANCER. A CLINICALLY SUSPICIOUS PALPABLE LUMP SHOULD BE BIOPSIED. Dictated by: Deya Mcpherson M.D. on 04/05/2022 at 10:57 Approved by: Deya Mcpherson M.D. on 04/05/2022 at 11:04 Normal [facility] US SINGLE QUAD RT UPPERon US SINGLE QUAD RT UPPER EXAMINATION: US SINGLE QUAD RT UPPER HISTORY: Tenderness of right upper quadrant of abdomen COMPARISON: No relevant comparison available. FINDINGS: The liver is normal in size and contour. Increase in hepatic echotexture with no focal mass. Hepatopedal flow in the main renal vein with a velocity of 32 cm/s. The gallbladder is normal in size. The gallbladder wall measures 2 mm, normal. Negative sonographic Badillo sign. Multiple echogenic foci measuring up to 1.9 cm with acoustic shadowing, cholelithiasis. Common bile duct measures 4.3 mm, normal. The visualized pancreas is normal. The right kidney measures 11.1 x 5.2 x 4.9 cm. No no hydronephrosis. The cortex measures 1 cm. Identified along along the lower pole is a 1.1 x 1.3 x 1.2 cm area of hypoechogenicity IMPRESSION: Echogenic liver suggesting steatosis Cholelithiasis without evidence of acute cholecystitis Indeterminate 1.3 cm cortical lesion lower pole right kidney consider pre and postcontrast CT for further evaluation Electronically authenticated by: GIA MARQUES Date: 2022-04-05 16:53 Normal [facility] CTA CHEST WO W CONon 022 CTA CHEST WO W CON EXAMINATION: CTA CHEST WO W CON HISTORY: Dyspnea on exertion , pulmonary fibrosis, shortness of breath, COPD COMPARISON: No relevant comparison available. TECHNIQUE: Axial, Coronal, and Sagittal images were created without and with IV contrast. Dose reduction techniques were achieved by using automated exposure control and/or adjustment of mA and/or kV according to patient size and/or use of iterative reconstruction technique. FINDINGS: LUNGS: Minimal basilar bronchiectasis and peribronchial thickening. Dependent groundglass opacities with a basilar predominance. 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 MEDIASTINUM: No mass or adenopathy. CARDIAC: Moderate cardiomegaly. No pericardial effusion. AORTA: No aortic aneurysm. Mild atherosclerosis. CHEST WALL: No mass or axillary adenopathy. BONES: No bone lesion or fracture. LIMITED ABDOMEN: No suspicious findings. Limited images of the upper abdomen. OTHER: Left loop recorder IMPRESSION: No central pulmonary thromboembolic disease Peripheral parenchymal infiltrates and mild honeycombing suggestive of pulmonary fibrosis Moderate cardiomegaly Electronically authenticated by: GIA MARQUES Date: 2022-01-16 07:37 Normal [facility] BUNon 01-15-2022 Urea nitrogen [Mass/Vol] 28.0 mg/dL Critically high 7.0-17.0 [facility] Comment on above: Performed By: #### B KAYLYN, CREA ####[facility] [address] [address]Dr. Breanna Heller CREATININEon 01-15-2022 Creatinine [Mass/Vol] 1.33 mg/dL Critically high 0.52-1.04 [facility] Comment on above: Performed By: #### B KAYLYN, CREA ####[facility] [address] [address]Dr. Breanna Heller EGFR-AF AUSTRALIAN 46 mL/min/1.73m2 Critically low >=60 [facility] Comment on above: Performed By: #### B KAYLYN, CREA ####[facility] [address] [address]Dr. Breanna Heller EGFR-NON AF AUSTRALIAN 38 mL/min/1.73m2 Critically low >=60 [facility] Comment on above: Performed By: #### B KAYLYN, CREA ####[facility] [address] [place], [place] [address]Dr. Breanna Heller ECHOCARDIO M/2D COMPLETEon 0 01-15-2022 ECHOCARDIO M/2D COMPLETE Patient: JOYCELYN JUAREZ Exam Date: 01/15/2022 : 1940 Gender:F Ordering : DR DANYEL ANGELO Admission #: [id number] Family : Order #: [id number] CLICK HERE TO VIEW EXAM ECHOCARDIOGRAM REPORT PROCEDURE: CARDIO PULMONARY ECHOCARDIO M/2D COMP INDICATIONS: Dyspnea on exertion, hypertension COMPARISON: None. DESCRIPTION: COMPLETE ECHOCARDIOGRAM Real-time transthoracic echocardiography with 2D, M-mode, spectral and color flow Doppler performed. QUALITY: Technically difficult due to patient's condition. LEFT VENTRICLE: Normal chamber size. Mild concentric left ventricular hypertrophy. LV EF: Global left ventricular systolic function is difficult to assess but appears preserved; visually estimated ejection fraction is 55 to 60%. Cannot comment on regional wall motion abnormalities. Consider contrast study to better delineate endocardial borders. DIASTOLIC: Normal diastolic function. ATRIAL SEPTUM: Inadequately seen. LEFT ATRIUM: Normal chamber size. RIGHT ATRIUM: Normal chamber size. RIGHT VENTRICLE: Normal chamber size. Normal right ventricular systolic function. TRICUSPID VALVE: Normal mobility and thickness. No stenosis with mild regurgitation. No evidence of pulmonary hypertension. RVSP 28 mmHg MITRAL VALVE: Normal mobility and thickness. No evidence of mitral valve stenosis. Moderate mitral annular calcification. No mitral regurgitation. AORTIC VALVE: Normal trileaflet appearance. Thickened aortic valve. Normal leaflet mobility. No evidence of aortic valve stenosis. No aortic regurgitation. AORTIC ROOT: Normal diameter and appearance. PULMONIC VALVE: Normal thickness and mobility. No stenosis. No regurgitation. PERICARDIUM: No evidence of pericardial effusion. IVC: Collapses with inspirations. IVC is normal in size. CONCLUSION: Global left ventricular systolic function is difficult to assess but appears preserved; visually estimated ejection fraction is 55 to 60%. Normal diastolic function. Right ventricle is normal in size and systolic function. Mild tricuspid regurgitation. Adult Echocardiography Procedure Report Left Ventricle LVEDD (3.7 - 5.6 cm): 5.08 cm LVESD (2.2 - 4.0 cm): 3.90 cm LVIVS thickness (0.6 - 1.2 cm): 1.01 cm LVPW thickness (0.5 - 1.0 cm): 1.05 cm e': 7.46 cm/s E - e': 10.70 LVOT Area (cm2): 5.73 cm2 LVOT Diameter 2.70 cm Left Atrium LA Volume Index (2D A2C): 18.90 ml/m2 Left Atrium Systolic Dimension: 4.00 cm Left Atrium Systolic Area(A2C): 16.30 cm2 Left Atrium Systolic Area(A4C): 20.60 cm2 Left Atrium Systolic Volume(A2C): 35073 mm3 Left Atrium Systolic Volume(A4C): 59376 mm3 Mitral Valve MV E to A Ratio: 0.90 Mitral Valve A-Wave Peak Velocity: 85.40 cm/s Mitral Valve E-Wave Peak Velocity: 79.50 cm/s Deceleration Time: 261 ms Right Ventricle Aorta AO Root Diam: 3.40 cm Aortic Valve AoV Area (Peak Dirk): 4.34 cm2 AoV Area (VTI): 4.83 cm2 Peak Velocity(Antegrade Flow): 129.00 cm/s Peak Gradient(Antegrade Flow): 7 mm[Hg] Mean Velocity(Antegrade Flow): 91.30 cm/s Mean Gradient(Antegrade Flow): 4 mm[Hg] Velocity Time Integral: 30.40 cm Tricuspid Valve Peak Velocity (Regurgitant Flow): 249.00 cm/s Pulmonic Valve Peak Velocity: 85.30 cm/s Peak Gradient: 3 mm[Hg] Right Atrium Dictated by: Nerissa Timmons M.D. on 01/15/2022 at 16:58 Approved by: Nerissa Timmons M.D. on 01/15/2022 at 17:00 Normal [facility] HEMOGLOBINon 12-18-2021 Hemoglobin (Bld) [Mass/Vol] 12.8 g/dL Normal 12.0-16.0 [facility] Comment on above: Performed By: #### H GB ####[facility] [address] [place], [place] [address]Hq. Breanna Heller XR CHEST 2 Von 12-18-2021 XR CHEST 2 V EXAMINATION: XR CHEST 2 V HISTORY: Chronic respiratory failure COMPARISON: 09/09/2021 TECHNIQUE: PA and lateral FINDINGS: LUNGS: Increased interstitial lung markings most significant along the peripheral lung bases, left greater than right. No new focal parenchymal infiltrate. VASCULATURE: No increased pulmonary vasculature. PLEURA: No pneumothorax, effusion, or pleural thickening. CARDIAC: No cardiomegaly or cardiac silhouette abnormality. MEDIASTINUM: No visible mass or adenopathy. Loop recorder BONES: Mild degenerative disc disease and spondylosis without visible acute abnormalities. OTHER: Negative. IMPRESSION: Increased interstitial lung markings, chronic changes are favored Electronically authenticated by: GIA MARQUES Date: 2021-12-18 09:06 Normal [facility] Hgb/Hcton 12-29-2018 Hematocrit Volume Fraction (Bld) 26.3 % Low 36.3-47.1 [facility] Comment on above: Performed By: #### P T, PTT #### [facility] [address] [place] [address] [phone] Technical Sales Director: Mir Chinchilla MD Hemoglobin mass conc (Bld) 8.5 g/dL Low 11.9-15.1 [facility] Comment on above: Performed By: #### P T, PTT #### [facility] [address] [place] [address] Technical Sales Director: Mir Chinchilla MD Basic Metabolic Profon 12-28 (cont.) Normal [facility] Comment on above: Result Comment: Aver age GFR for 70 or more years old: 75 mL/min/1.73sq m Chronic Kidney Disease: <60 mL/min/1.73sq m Kidney failure: <15 mL/min/1.73sq m eGFR calculated using average adult body mass. Additional eGFR calculator available at: http://www.[employer].Virgance/multiple_crcl_2012.htm Performed By: #### P T, PTT #### [facility] [address] [place] [address] [id number] Technical Sales Director: Mir Chinchilla MD Anion gap molar conc 12 mmol/L Normal 9-17 [facility] Comment on above: Performed By: #### P T, PTT #### [facility] [address] [place] [address] [phone] Technical Sales Director: Mir Chinchilla MD Calcium mass conc 7.7 mg/dL Low 8.6-10.4 [facility] Comment on above: Performed By: #### P T, PTT #### [facility] [address] [place] [address] [phone] Technical Sales Director: Mir Chinchilla MD Chloride molar conc 105 mmol/L Normal 98-107 [facility] Comment on above: Performed By: #### P T, PTT #### [facility] [address] [place] [address] 99772 Technical Sales Director: Mir Chinchilla MD CO2 molar conc 23 mmol/L Normal 20-31 [facility] Comment on above: Performed By: #### P T, PTT #### [facility] [address] [place] [address] 56079 Technical Sales Director: Mir Chinchilla MD Creatinine mass conc 1.13 mg/dL High 0.50-0.90 [facility] Comment on above: Performed By: #### P T, PTT #### [facility] [address] [place] [address] 93809 Technical Sales Director: Mir Chinchilla MD GFR, Amer 56 mL/min Low >60 [facility] Comment on above: Performed By: #### P T, PTT #### [facility] [address] [place] [address] 60494 Technical Sales Director: Mir Chinchilla MD GFR,non Amer 46 mL/min Low >60 [facility] Comment on above: Performed By: #### P T, PTT #### [facility] [address] [place] [address] 26049 Technical Sales Director: Mir Chinchilla MD Glucose mass conc 246 mg/dL High 70-99 [facility] Comment on above: Performed By: #### P T, PTT #### [facility] [address] [place] [address] 58173 Technical Sales Director: Mir Chinchilla MD Potassium molar conc 4.1 mmol/L Normal 3.7-5.3 [facility] Comment on above: Performed By: #### P T, PTT #### [facility] [address] [place] [address] [phone] Technical Sales Director: Mir Chinchilla MD Sodium molar conc 140 mmol/L Normal 135-144 [facility] Comment on above: Performed By: #### P T, PTT #### [address] [address] Technical Sales Director: Mir Chinchilla MD Urea nitrogen mass conc 26 mg/dL High 06-26 [facility] Comment on above: Performed By: #### P T, PTT #### [address] [address] Technical Sales Director: Mir Chinchilla MD BUN/CRE Ratio NOT REPORTED Normal 07-24 [facility] Comment on above: Performed By: #### P T, PTT #### [address] [address] Technical Sales Director: Mir Chinchilla MD Staging: NOT REPORTED Normal [facility] Comment on above: Performed By: #### P T, PTT #### [address] [address] Technical Sales Director: Mir Chinchilla MD CBC with Diffon 12-28-2018 Abs. Basophil <0.03 Normal 0.00-0.20 [facility] Comment on above: Performed By: #### P T, PTT #### [address] [address] Technical Sales Director: Mir Chinchilla MD Abs.Imm.Granulocyt e 0.04 k/uL Normal 0.00-0.30 [facility] Comment on above: Performed By: #### P T, PTT #### [address] [address] Technical Sales Director: Mir Chinchilla MD Abs.Neutrophil (Seg) 5.78 k/uL Normal 1.50-8.10 [facility] Comment on above: Performed By: #### P T, PTT #### [address] [address] Technical Sales Director: Mir Chinchilla MD Basophils/100 WBC (Bld) 0 % Normal 0-2 [facility] Comment on above: Performed By: #### P T, PTT #### [address] [address] Technical Sales Director: Mir Chinchilla MD Eosinophils #/vol (Bld) 0.09 10*3/uL Normal 0.00-0.44 [facility] Comment on above: Performed By: #### P T, PTT #### [address] [address] Technical Sales Director: Mir Chinchilla MD Eosinophils/100 WBC (Bld) 1 % Normal 1-4 [facility] [facility] Comment on above: Performed By: #### P T, PTT #### [address] [address] Technical Sales Director: Mir Chinchilla MD Erythrocyte distribution width Ratio (RBC) 16.9 % High 11.8-14.4 [facility] Comment on above: Performed By: #### P T, PTT #### [address] [address] Technical Sales Director: Mir Chinchilla MD Hematocrit Volume Fraction (Bld) 22.3 % Low 36.3-47.1 [facility] Comment on above: Performed By: #### P T, PTT #### [address] [address] Technical Sales Director: Mir Chinchilla MD Hemoglobin mass conc (Bld) 7.1 g/dL Low 11.9-15.1 [facility] Comment on above: Performed By: #### P T, PTT #### [address] [address] Technical Sales Director: Mir Chinchilla MD Immature granulocytes #/vol (Bld) 0 % Normal 0 [facility] Comment on above: Performed By: #### P T, PTT #### [address] [address] Technical Sales Director: Mir Chinchilla MD Lymphocytes #/vol (Bld) 2.59 10*3/uL Normal 1.10-3.70 [facility] Comment on above: Performed By: #### P T, PTT #### [address] [address] Technical Sales Director: Mir Chinchilla MD Lymphocytes/100 WBC (Bld) 28 % Normal 24-43 [facility] Comment on above: Performed By: #### P T, PTT #### [address] [address] Technical Sales Director: Mir Chinchilla MD MCH Entitic mass (RBC) 29.0 pg Normal 25.2-33.5 [facility] Comment on above: Performed By: #### P T, PTT #### [place] [address] Technical Sales Director: Mir Chinchilla MD MCHC mass conc (RBC) 31.8 g/dL Normal 28.4-34.8 [facility] Comment on above: Performed By: #### P T, PTT #### [place] [address] Technical Sales Director: Mir Chinchilla MD MCV Entitic volume (RBC) 91.0 fL Normal 82.6-102.9 [facility] Comment on above: Performed By: #### P T, PTT #### [address] [address] Technical Sales Director: Mir Chinchilla MD Monocytes #/vol (Bld) 0.74 10*3/uL Normal 0.10-1.20 [facility] Comment on above: Performed By: #### P T, PTT #### [address] [address] Technical Sales Director: Mir Chinchilla MD Monocytes/100 WBC (Bld) 8 % Normal 3-12 [facility] Comment on above: Performed By: #### P T, PTT #### [address] [address] Technical Sales Director: Mir Chinchilla MD Neutrophil (Seg) 63 % Normal 36-65 [facility] Comment on above: Performed By: #### P T, PTT #### [address] [address] Technical Sales Director: Mir Chinchilla MD NRBC Automated 0.0 per 100 WBC Normal 0.0 [facility] Comment on above: Performed By: #### P T, PTT #### [address] [address] Technical Sales Director: Mir Chinchilla MD Platelet mean volume Entitic volume (Bld) 11.1 fL Normal 8.1-13.5 [facility] Comment on above: Performed By: #### P T, PTT #### [address] [address] Technical Sales Director: Mir Chinchilla MD Platelets #/vol (Bld) 93 10*3/uL Low 138-453 [facility] Comment on above: Performed By: #### P T, PTT #### [address] [address] Technical Sales Director: Mir Chinchilla MD RBC #/vol (Bld) 2.45 10*6/uL Low 3.95-5.11 [facility] Comment on above: Performed By: #### P T, PTT #### [address] [address] Technical Sales Director: Mir Chinchilla MD RBC morphology finding Nom (Bld) ANISOCYTOSIS PRESENT Normal [facility] Comment on above: Performed By: #### P T, PTT #### [address] [address] Technical Sales Director: Mir Chinchilla MD WBC #/vol (Bld) 9.3 10*3/uL Normal 3.5-11.3 [facility] Comment on above: Performed By: #### P T, PTT #### [address] [address] Technical Sales Director: Mir Chinchilla MD Auto Diff Performed NOT REPORTED Normal [facility] Comment on above: Performed By: #### P T, PTT #### [address] [address] Technical Sales Director: Mir Chinchilla MD Platelets #/vol (Bld) NOT REPORTED Normal [facility] Comment on above: Performed By: #### P T, PTT #### [address] [address] Technical Sales Director: Mir Chinchilla MD WBC Morphology NOT REPORTED Normal [facility] Comment on above: Performed By: #### P T, PTT #### [address] [address] Technical Sales Director: Mir Chinchilla MD Cult,Urineon 12-28-2018 Cult,Urine Specimen Description .CATHETERIZED URINE ORLANDO INSERTION Special Requests NOT REPORTED Culture NO GROWTH Report Status FINAL 12/28/2018 Normal [facility] Comment on above: Performed By: #### P T, PTT #### [address] [address] Technical Sales Director: Mir Chinchilla MD Basic Metabolic Profon 12-27 (cont.) Normal [facility] Comment on above: Result Comment: Aver age GFR for 70 or more years old: 75 mL/min/1.73sq m Chronic Kidney Disease: <60 mL/min/1.73sq m Kidney failure: <15 mL/min/1.73sq m eGFR calculated using average adult body mass. Additional eGFR calculator available at: http://www.[employer].Virgance/multiple_crcl_2012.htm Performed By: #### P T, PTT #### [facility] [address] [place] [address] Technical Sales Director: Mir Chinchilla MD Anion gap molar conc 9 mmol/L Normal 9-17 [facility] Comment on above: Performed By: #### P T, PTT #### [address] [address] Technical Sales Director: Mir Chinchilla MD Calcium mass conc 9.0 mg/dL Normal 8.6-10.4 [facility] Comment on above: Performed By: #### P T, PTT #### [facility] [address] [place] [address] Technical Sales Director: Mir Chinchilla MD Chloride molar conc 112 mmol/L High 98-107 [facility] Comment on above: Performed By: #### P T, PTT #### [facility] [address] [place] [address] Technical Sales Director: Mir Chinchilla MD CO2 molar conc 21 mmol/L Normal 20-31 [facility] Comment on above: Performed By: #### P T, PTT #### [facility] [address] [place] [address] Technical Sales Director: Mir Chinchilla MD Creatinine mass conc 0.96 mg/dL High 0.50-0.90 [facility] Comment on above: Performed By: #### P T, PTT #### [facility] [address] [place] [address] Technical Sales Director: Mir Chinchilla MD GFR, Amer >60 Normal >60 [facility] Comment on above: Performed By: #### P T, PTT #### [facility] [place] [address] Technical Sales Director: Mir Chinchilla MD GFR,non Amer 56 mL/min Low >60 [facility] Comment on above: Performed By: #### P T, PTT #### [facility] [address] [place] [address] Technical Sales Director: Mir Chinchilla MD Glucose mass conc 246 mg/dL High 70-99 [facility] Comment on above: Performed By: #### P T, PTT #### [facility] [address] [place] [address] Technical Sales Director: Mir Chinchilla MD Potassium molar conc 4.3 mmol/L Normal 3.7-5.3 [facility] Comment on above: Performed By: #### P T, PTT #### [facility] [address] [place] [address] Technical Sales Director: Mir Chinchilla MD Sodium molar conc 142 mmol/L Normal 135-144 [facility] Comment on above: Performed By: #### P T, PTT #### [facility] [address] [place] [address] Technical Sales Director: Mir Chinchilla MD Urea nitrogen mass conc 26 mg/dL High 8-23 [facility] Comment on above: Performed By: #### P T, PTT #### [facility] [address] [place] [address] Technical Sales Director: Mir Chinchilla MD BUN/CRE Ratio NOT REPORTED Normal 9-20 [facility] Comment on above: Performed By: #### P T, PTT #### [facility] [address] [place] [address] Technical Sales Director: Mir Chinchilla MD Staging: NOT REPORTED Normal [facility] Comment on above: Performed By: #### P T, PTT #### [facility] [address] [place] [address] Technical Sales Director: Mir Chinchilla MD CBCon 12-27-2018 Erythrocyte distribution width Ratio (RBC) 17.2 % High 11.8-14.4 [facility] Comment on above: Performed By: #### P T, PTT #### [facility] [address] [place] [address] Technical Sales Director: Mir Chinchilla MD Hematocrit Volume Fraction (Bld) 23.3 % Low 36.3-47.1 [facility] Comment on above: Performed By: #### P T, PTT #### [facility] [address] [place] [address] Technical Sales Director: Mir Chinchilla MD Hemoglobin mass conc (Bld) 7.5 g/dL Low 11.9-15.1 [facility] Comment on above: Performed By: #### P T, PTT #### [facility] [address] [place] [address] Technical Sales Director: Mir Chinchilla MD MCH Entitic mass (RBC) 29.2 pg Normal 25.2-33.5 [facility] Comment on above: Performed By: #### P T, PTT #### [facility] [address] [place] [address] Technical Sales Director: Mir Chinchilla MD MCHC mass conc (RBC) 32.2 g/dL Normal 28.4-34.8 [facility] Comment on above: Performed By: #### P T, PTT #### [facility] [address] [place] [address] Technical Sales Director: Mir Chinchilla MD MCV Entitic volume (RBC) 90.7 fL Normal 82.6-102.9 [facility] Comment on above: Performed By: #### P T, PTT #### [facility] [address] [place] [address] Technical Sales Director: Mir Chinchilla MD NRBC Automated 0.0 per 100 WBC Normal 0.0 [facility] Comment on above: Performed By: #### P T, PTT #### [address] [address] Technical Sales Director: Mir Chinchilla MD Platelet mean volume Entitic volume (Bld) 11.0 fL Normal 8.1-13.5 [facility] Comment on above: Performed By: #### P T, PTT #### [address] [address] Technical Sales Director: Mir Chinchilla MD Platelets #/vol (Bld) 89 10*3/uL Low 138-453 [facility] Comment on above: Performed By: #### P T, PTT #### [address] [address] Technical Sales Director: Mir Chinchilla MD RBC #/vol (Bld) 2.57 10*6/uL Low 3.95-5.11 [facility] Comment on above: Performed By: #### P T, PTT #### [address] [address] Technical Sales Director: Mir Chinchilla MD WBC #/vol (Bld) 8.5 10*3/uL Normal 3.5-11.3 [facility] Comment on above: Performed By: #### P T, PTT #### [address] [address] Technical Sales Director: Mir Chinchilla MD Erythrocyte distribution width Ratio (RBC) 17.2 % High 11.8-14.4 [facility] Comment on above: Performed By: #### P T, PTT #### [address] [address] Technical Sales Director: Mir Chinchilla MD Hematocrit Volume Fraction (Bld) 22.4 % Low 36.3-47.1 [facility] Comment on above: Performed By: #### P T, PTT #### [address] [address] Technical Sales Director: Mir Chinchilla MD Hemoglobin mass conc (Bld) 7.3 g/dL Low 11.9-15.1 [facility] Comment on above: Performed By: #### P T, PTT #### [address] [address] Technical Sales Director: Mir Chinchilla MD MCH Entitic mass (RBC) 30.2 pg Normal 25.2-33.5 [facility] Comment on above: Performed By: #### P T, PTT #### [address] [address] Technical Sales Director: Mir Chinchilla MD MCHC mass conc (RBC) 32.6 g/dL Normal 28.4-34.8 [facility] Comment on above: Performed By: #### P T, PTT #### [address] [address] Technical Sales Director: Mir Chinchilla MD MCV Entitic volume (RBC) 92.6 fL Normal 82.6-102.9 [facility] Comment on above: Performed By: #### P T, PTT #### [address] [address] Technical Sales Director: Mir Chinchilla MD NRBC Automated 0.0 per 100 WBC Normal 0.0 [facility] Comment on above: Performed By: #### P T, PTT #### [address] [address] Technical Sales Director: Mir Chinchilla MD Platelet mean volume Entitic volume (Bld) 10.5 fL Normal 8.1-13.5 [facility] Comment on above: Performed By: #### P T, PTT #### [facility] [address] [place] [address] Technical Sales Director: Mir Chinchilla MD Platelets #/vol (Bld) 90 10*3/uL Low 138-453 [facility] Comment on above: Performed By: #### P T, PTT #### [facility] [address] [place] [address] Technical Sales Director: Mir Chinchilla MD RBC #/vol (Bld) 2.42 10*6/uL Low 3.95-5.11 [facility] Comment on above: Performed By: #### P T, PTT #### [facility] [address] [place] [address] Technical Sales Director: Mir Chinchilla MD WBC #/vol (Bld) 8.6 10*3/uL Normal 3.5-11.3 [facility] Comment on above: Performed By: #### P T, PTT #### [facility] [address] [place] [address] Technical Sales Director: Mir Chinchilla MD Calcium, Ionicon 12-27-2018 Calcium mass conc 1.33 mmol/L Normal 1.13-1.33 [facility] Comment on above: Performed By: #### P T, PTT #### [facility] [address] [place] [address] Technical Sales Director: Mir Chinchilla MD Magnesiumon 12-27-2018 Magnesium mass conc 1.7 mg/dL Normal 1.6-2.6 [facility] Comment on above: Performed By: #### P T, PTT #### [facility] [address] [place] [address] Technical Sales Director: Mir Chinchilla MD APTTon 12-26-2018 aPTT Coag time (Bld) 30.6 s High 20.5-30.5 [facility] Comment on above: Performed By: #### P T, PTT #### [facility] [place] [address] Technical Sales Director: Mir Chinchilla MD aPTT Coag time (Bld) 42.7 s High 20.5-30.5 [facility] Comment on above: Performed By: #### P T, PTT #### [facility] [address] [place] [address] Technical Sales Director: Mir Chinchilla MD Basic Metabolic Profon 12-26 (cont.) Normal [facility] Comment on above: Result Comment: Aver age GFR for 70 or more years old: 75 mL/min/1.73sq m Chronic Kidney Disease: <60 mL/min/1.73sq m Kidney failure: <15 mL/min/1.73sq m eGFR calculated using average adult body mass. Additional eGFR calculator available at: http://www.[employer].Virgance/multiple_crcl_2011.htm Performed By: #### P T, PTT #### [facility] [address] [place] [address] Technical Sales Director: Mir Chinchilla MD Anion gap molar conc 10 mmol/L Normal 9-17 [facility] Comment on above: Performed By: #### P T, PTT #### [employer] [address] [place] [address] Technical Sales Director: Mir Chinchilla MD Calcium mass conc 7.3 mg/dL Low 8.6-10.4 [facility] Comment on above: Performed By: #### P T, PTT #### [employer] [facility] [place] [address] Technical Sales Director: Mir Chinchilla MD Chloride molar conc 113 mmol/L High 98-107 [facility] Comment on above: Performed By: #### P T, PTT #### [employer] [address] [place] [address] Technical Sales Director: Mir Chinchilla MD CO2 molar conc 19 mmol/L Low 20-31 [facility] Comment on above: Performed By: #### P T, PTT #### [facility] [address] [place] [address] Technical Sales Director: Mir Chinchilla MD Creatinine mass conc 0.94 mg/dL High 0.50-0.90 [facility] Comment on above: Performed By: #### P T, PTT #### [facility] [address] [place] [address] Technical Sales Director: Mir Chinchilla MD GFR, Amer >60 Normal >60 [facility] Comment on above: Performed By: #### P T, PTT #### [facility] [address] [place] [address] Technical Sales Director: Mir Chinchilla MD GFR,non Amer 57 mL/min Low >60 [facility] Comment on above: Performed By: #### P T, PTT #### [facility] [address] [place] [address] Technical Sales Director: Mir Chinchilla MD Glucose mass conc 212 mg/dL High 70-99 [facility] Comment on above: Performed By: #### P T, PTT #### [facility] [address] [place] [address] Technical Sales Director: Mir Chinchilla MD Potassium molar conc 4.6 mmol/L Normal 3.7-5.3 [facility] Comment on above: Performed By: #### P T, PTT #### [facility] [address] [place] [address] Technical Sales Director: Mir Chinchilla MD Sodium molar conc 142 mmol/L Normal 135-144 [facility] Comment on above: Performed By: #### P T, PTT #### [facility] [address] [place] [address] Technical Sales Director: Mir Chinchilla MD Urea nitrogen mass conc 26 mg/dL High 8-23 [facility] Comment on above: Performed By: #### P T, PTT #### [address] [address] Technical Sales Director: Mir Chinchilla MD BUN/CRE Ratio NOT REPORTED Normal 9-20 [facility] Comment on above: Performed By: #### P T, PTT #### [address] [address] Technical Sales Director: Mir Chinchilla MD Staging: NOT REPORTED Normal [facility] Comment on above: Performed By: #### P T, PTT #### [address] [address] Technical Sales Director: Mir Chinchilla MD CBCon 12-26-2018 Erythrocyte distribution width Ratio (RBC) 16.6 % High 11.8-14.4 [facility] Comment on above: Performed By: #### C BC, PT, PTT, BMP, MG #### [address] [address] Technical Sales Director: Mir Chinchilla MD Hematocrit Volume Fraction (Bld) 24.5 % Low 36.3-47.1 [facility] Comment on above: Performed By: #### C BC, PT, PTT, BMP, MG #### [address] [address] Technical Sales Director: Mir Chinchilla MD Hemoglobin mass conc (Bld) 7.8 g/dL Low 11.9-15.1 [facility] Comment on above: Performed By: #### C BC, PT, PTT, BMP, MG #### [address] [address] Technical Sales Director: Mir Chinchilla MD MCH Entitic mass (RBC) 29.8 pg Normal 25.2-33.5 [facility] Comment on above: Performed By: #### C BC, PT, PTT, BMP, MG #### [facility] [address] [place] [address] Technical Sales Director: Mir Chinchilla MD MCHC mass conc (RBC) 31.8 g/dL Normal 28.4-34.8 [facility] Comment on above: Performed By: #### C BC, PT, PTT, BMP, MG #### [facility] [address] [place] [address] Technical Sales Director: Mir Chinchilla MD MCV Entitic volume (RBC) 93.5 fL Normal 82.6-102.9 [facility] Comment on above: Performed By: #### C BC, PT, PTT, BMP, MG #### [facility] [address] [place] [address] Technical Sales Director: Mir Chinchilla MD NRBC Automated 0.0 per 100 WBC Normal 0.0 [facility] Comment on above: Performed By: #### C BC, PT, PTT, BMP, MG #### [facility] [address] [place] [address] Technical Sales Director: Mir Chinchilla MD Platelet mean volume Entitic volume (Bld) 10.5 fL Normal 8.1-13.5 [facility] Comment on above: Performed By: #### C BC, PT, PTT, BMP, MG #### [facility] [address] [place] [address] Technical Sales Director: Mir Chinchilla MD Platelets #/vol (Bld) 81 10*3/uL Low 138-453 [facility] Comment on above: Performed By: #### C BC, PT, PTT, BMP, MG #### [facility] [address] [place] [address] Technical Sales Director: Mir Chinchilla MD RBC #/vol (Bld) 2.62 10*6/uL Low 3.95-5.11 [facility] Comment on above: Performed By: #### C BC, PT, PTT, BMP, MG #### [address] [address] Technical Sales Director: Mir Chinchilla MD WBC #/vol (Bld) 13.4 10*3/uL High 3.5-11.3 [facility] Comment on above: Performed By: #### C BC, PT, PTT, BMP, MG #### [address] [address] Technical Sales Director: Mir Chinchilla MD Calcium, Ionicon 12-26-2018 Calcium mass conc 1.12 mmol/L Low 1.13-1.33 [facility] Comment on above: Performed By: #### O HP, IOCAL #### [address] [address] Technical Sales Director: Mir Chinchilla MD Calcium mass conc 1.17 mmol/L Normal 1.13-1.33 [facility] Comment on above: Performed By: #### O HP, IOCAL #### [address] [address] Technical Sales Director: Mir Chinchilla MD FFP, Transfuseon 12-26-2018 FFP, Transfuse Unit Number [id number] Blood Component Type Fresh Plasma Unit Division 00 Status of Unit TRANSFUSED Transfusion Status OK TO TRANSFUSE Normal [facility] Comment on above: Performed By: #### P T, PTT #### [address] [address] Technical Sales Director: Mir Chinchilla MD FFP, Transfuse Unit Number [id number] Blood Component Type Fresh Plasma Unit Division 00 Status of Unit TRANSFUSED Transfusion Status OK TO TRANSFUSE Normal [facility] Comment on above: Performed By: #### P T, PTT #### [address] [address] Technical Sales Director: Mir Chinchilla MD Hgb/Hcton 12-26-2018 Hematocrit Volume Fraction (Bld) 36.3 % Normal 36.3-47.1 [facility] Comment on above: Performed By: #### H H #### [facility] [place] [address] Technical Sales Director: Mir Chinchilla MD Hemoglobin mass conc (Bld) 11.2 g/dL Low 11.9-15.1 [facility] Comment on above: Performed By: #### H H #### [facility] [address] [place] [address] Technical Sales Director: Mir Chinchilla MD Magnesiumon 12-26-2018 Magnesium mass conc 1.6 mg/dL Normal 1.6-2.6 [facility] Comment on above: Performed By: #### P T, PTT #### [facility] [address] [place] [address] Technical Sales Director: Mir Chinchilla MD OPERATIVE REPORTon 9 OPERATIVE REPORT [address] [id number] OPERATIVE REPORT PATIENT NAME: JOYCELYN JUAREZ : 1940 MED REC NO: [id number] ROOM: 1001 ACCOUNT NO: [id number] ADMIT DATE: 12/26/2018 PROVIDER: Tito Yang MD DATE OF PROCEDURE: 12/26/2018 PREOPERATIVE DIAGNOSIS: Expanding right groin hematoma after cardiac ablation. POSTOPERATIVE DIAGNOSIS: Pulsatile bleeding from common femoral artery. SURGERIES: 1. Emergency surgery. 2. Right femoral exploration. 3. Primary repair of common femoral arteriotomy x4. 4. Primary repair of common femoral vein x1. 5. Placement of negative-pressure Prevena wound VAC over the incision site. ANESTHESIA: General. SURGEON: Tito Yang MD SEMICONDUCTOR WAFERS ETCH OPERATOR: Feliciano Whitfield, PGY-3 ESTIMATED BLOOD LOSS: 3200 mL. PRODUCTS TRANSFUSED: 3 units of packed red blood cells, 2 of FFP, 1 of platelets, 750 mL of Cell Saver, and 1 L of albumin. COMPLICATIONS: None. DRAIN: 19-Omani Gabriele drain placed in the right groin. FINDINGS: There was active bleeding from 2 large arteriotomies and 2 small limbs in the common femoral artery. There was also bleeding from the venotomy that was repaired. INDICATION FOR PROCEDURE: The patient is an 78-year-old who had presented for elective cardiac ablation. Almost immediately after her procedure, she developed an expanding right femoral hematoma. A FemoStop had been placed, but hematoma continued to grow, and blood pressure was labile. She was evaluated and assessed to go emergently to the operating room. Consent was obtained by the family members, and the patient was brought over to the OR emergently. DESCRIPTION OF PROCEDURE: The patient was brought to the operating room. After appropriate anesthesia was delivered, the right groin was prepped and draped in standard sterile fashion. Manual pressure was held using the sponge stick over the groin due to the enlarged hematoma. Transverse incision was created just above the puncture sites on the skin. There was a profuse amount of bleeding and blood. Evacuated almost a liter immediately. Manual pressure was attempted to use for control. The entire groin was then packed with multiple lap pads to help with hemostasis while Anesthesia was catching up with transfusions. Blunt dissection was utilized to go through the hematoma. There was pulsatile bleeding coming from the common femoral artery. Manual pressure was pressed right over the opening for control. Dissection proximally and distally was performed. Proximal clamp was applied on the common femoral artery. Distally, a sponge stick was used for control. A large arteriotomy could be seen that was going from the top of the artery laterally. This was repaired with interrupted 5-0 Prolene sutures. There was another arteriotomy just below this, which appeared to be also going next to the venotomy. So, these were individually repaired using interrupted 5-0 Prolene suture, initially the common femoral followed by the vein. At this point, it did seem like there was good control of the bleeding. There was some oozing coming further inferiorly, so further dissection of the common femoral artery was performed to the level of the bifurcation. There was another arteriotomy seen here. This one, a little bit smaller than the previous two. This was repaired with a couple of interrupted Prolene sutures as well. The vein at this point did not seem to be actively bleeding and no further dissection was done; however, going back proximally on the common femoral artery, there was another small pinhole that was oozing and actively bleeding. This was repaired with 5-0 Prolene suture as well. At this point, no more pulsatile bleeding was seen. There was a large hematoma that tracked down the medial thigh cavity. As much of the hematoma that could be evacuated was, most of it was intramuscular; however, there was a significant space that had been created due to the hematoma tracking. There were some lymphatics identified that was clipped and ligated. The groin was then washed out with irrigation. Small piece of thrombin-Gelfoam was left over the arteriotomy sites. At this point, I did feel satisfied with the repair. The patient did have significant blood loss, but Anesthesia was able to keep up with the losses. Her blood pressure was low for just a short period during the surgery. At this point, I then closed the Venkatesh's layer with interrupted Vicryl. A 19-Omani Gabriele drain was then brought into through a separate stab incision and placed into the medial thigh cavity, above the femoral sheath. It was then sutured in place. The skin was reapproximated with interrupted vertical mattress nylon sutures. Given the amount of extensive dissection, emergency surgery, a negative-pressure Prevena wound VAC was applied over the surgical site to allow it to capture any drainage and prevent moisture buildup over the incision. At this point, the patient was hemodynamically stable and was brought to the CVICU for recovery and monitoring. TITO YANG MD MA/[id number] Doc#: [id number] CC: Normal [facility] Open Heart Panelon 9 Toan Test INFORMATION NOT PROVIDED [facility] Comment on above: Performed By: #### O HP, IOCAL #### [employer] [address] [place] [address] Technical Sales Director: Mir Chinchilla MD Body Temp. 35.0 Normal [facility] Comment on above: Performed By: #### O HP, IOCAL #### [employer] [address] [place] [address] Technical Sales Director: Mir Chinchilla MD Carboxy Hgb 0.3 % Normal 0-5 [facility] Comment on above: Result Comment: Reference Range: Non-Smokers 0-2% Average Smoker 2-4% Heavy Smoker <10% Performed By: #### O HP, IOCAL #### [address] [address] Technical Sales Director: Mir Chinchilla MD Chloride molar conc 111 mmol/L High 98-110 [facility] Comment on above: Performed By: #### O HP, IOCAL #### [facility] [address] [place] [address] Technical Sales Director: Mir Chinchilla MD FIO2 80% Normal [facility] Comment on above: Performed By: #### O HP, IOCAL #### [facility] [address] [place] [address] 605[address] Technical Sales Director: Mir Chinchilla MD Glucose mass conc 209 mg/dL High 65-105 [facility] Comment on above: Performed By: #### O HP, IOCAL #### [address] [address] Technical Sales Director: Mir Chinchilla MD HCO3 molar conc (Bld) 21.4 mmol/L Low 22-27 [facility] Comment on above: Performed By: #### O HP, IOCAL #### [facility] [address] [place] [address]82 Technical Sales Director: Mir Chinchilla MD Hematocrit Volume Fraction (Bld) 22.0 % Normal [facility] Comment on above: Performed By: #### O HP, IOCAL #### [facility] [address] [place] [address] Technical Sales Director: Mir Chinchilla MD Hemoglobin mass conc (Bld) 7.0 g/dL Normal [facility] Comment on above: Performed By: #### O HP, IOCAL #### [facility] [address] [place] [address] Technical Sales Director: Mir Chinchilla MD Negative Base Excess 3.5 mmol/L High 0.0-2.0 [facility] Comment on above: Performed By: #### O HP, IOCAL #### [facility] [address] [place] [address] Technical Sales Director: Mir Chinchilla MD Oxygen ppres (Bld) 274.0 mm[Hg] High 75-95 [facility] Comment on above: Performed By: #### O HP, IOCAL #### [facility] [address] [place] [address] Technical Sales Director: Mir Chinchilla MD Oxygen saturation in Blood 97.8 % Normal 94-100 [facility] Comment on above: Performed By: #### O HP, IOCAL #### [facility] [address] [place] [address] Technical Sales Director: Mir Chinchilla MD pCO2 41.2 mmHg Normal 32-45 [facility] Comment on above: Performed By: #### O HP, IOCAL #### [address] [address] Technical Sales Director: Mir Chinchilla MD pCO2 Adj'd for Temp 37.4 Normal 32-45 [facility] Comment on above: Performed By: #### O HP, IOCAL #### [facility] [address] [place] [address] Technical Sales Director: Mir Chinchilla MD pH (Bld) 7.336 [pH] Low 7.350-7.450 [facility] Comment on above: Performed By: #### O HP, IOCAL #### [facility] [address] [place] [address] Technical Sales Director: Mir Chinchilla MD pH Adjst'd for Temp. 7.364 Normal 7.350-7.450 [facility] Comment on above: Performed By: #### O HP, IOCAL #### [facility] [address] [place] [address]683 Technical Sales Director: Mir Chinchilla MD pO2 Adjst'd for Temp 266.0 mmHg High 75-95 [facility] Comment on above: Performed By: #### O HP, IOCAL #### [facility] [address] [place] [address] Technical Sales Director: Mir Chinchilla MD Potassium molar conc 4.1 mmol/L Normal 3.6-5.0 [facility] Comment on above: Performed By: #### O HP, IOCAL #### [facility] [address] [place] [address] Technical Sales Director: Mir Chinchilla MD Sodium molar conc 140 mmol/L Normal 136-145 [facility] Comment on above: Performed By: #### O HP, IOCAL #### [facility] [address] [place] [address]67 Technical Sales Director: Mir Chinchilla MD Methemoglobin NOT REPORTED Normal 0.0-1.5 [facility] Comment on above: Performed By: #### O HP, IOCAL #### [facility] [address] [place] [address] Technical Sales Director: Mir Chinchilla MD Mode NOT REPORTED Normal [facility] Comment on above: Performed By: #### O HP, IOCAL #### [facility] [address] [place] [address] Technical Sales Director: Mir Chinchilla MD Notification Time NOT REPORTED Normal [facility] Comment on above: Performed By: #### O HP, IOCAL #### [facility] [address] [place] [address] Technical Sales Director: Mir Chinchilla MD Notification: NOT REPORTED Normal [facility] Comment on above: Performed By: #### O HP, IOCAL #### [facility] [address] [place] [address]61 Technical Sales Director: Mir Chinchilla MD O2 Device/Flow/% NOT REPORTED Normal [facility] Comment on above: Performed By: #### O HP, IOCAL #### [facility] [address] [place] [address] Technical Sales Director: Mir Chinchilla MD Oxyhemoglobin NOT REPORTED Normal 95.0-98.0 [facility] Comment on above: Performed By: #### O HP, IOCAL #### [facility] [address] [place] [address] Technical Sales Director: Mir Chinchilla MD PEEP/CPAP NOT REPORTED Normal [facility] Comment on above: Performed By: #### O HP, IOCAL #### [facility] [address] [place] [address] Technical Sales Director: Mir Chinchilla MD Positive Base Excess NOT REPORTED Normal 0.0-2.0 [facility] Comment on above: Performed By: #### O HP, IOCAL #### [facility] [address] [place] [address]36 Technical Sales Director: Mir Chinchilla MD PSV NOT REPORTED Normal [facility] Comment on above: Performed By: #### O HP, IOCAL #### [employer] [address] [place] [address] Technical Sales Director: Mir Chinchilla MD Pt. Position NOT REPORTED Normal [facility] Comment on above: Performed By: #### O HP, IOCAL #### [facility] [address] [place] [address] Technical Sales Director: Mir Chinchilla MD Set Rate NOT REPORTED Normal [facility] Comment on above: Performed By: #### O HP, IOCAL #### [facility] [address] [place] [address] Technical Sales Director: Mir Chinchilla MD Site Drawn NOT REPORTED Normal [facility] Comment on above: Performed By: #### O HP, IOCAL #### [facility] [address] [place] [address] Technical Sales Director: Mir Chinchilla MD Text for Respiratory NOT REPORTED Normal [facility] Comment on above: Performed By: #### O HP, IOCAL #### [facility] [address] [place] [address] Technical Sales Director: Mir Chinchilla MD Total Hb NOT REPORTED Normal 12.0-16.0 [facility] Comment on above: Performed By: #### O HP, IOCAL #### [facility] [address] [place] [address] Technical Sales Director: Mir Chinchilla MD Total Rate NOT REPORTED Normal [facility] Comment on above: Performed By: #### O HP, IOCAL #### [facility] [address] [place] [address] Technical Sales Director: Mir Chinchilla MD VT NOT REPORTED Normal [facility] Comment on above: Performed By: #### O HP, IOCAL #### [facility] [address] [place] [address] Technical Sales Director: Mir Chinchilla MD Toan Test INFORMATION NOT PROVIDED Normal [facility] Comment on above: Performed By: #### O HP, IOCAL #### [facility] [address] [place] [address] Technical Sales Director: Mir Chinchilla MD Body Temp. 35.0 Normal [facility] Comment on above: Performed By: #### O HP, IOCAL #### [facility] [address] [place] [address] Technical Sales Director: Mir Chinchilla MD Carboxy Hgb 1.1 % Normal 0-5 [facility] Comment on above: Result Comment: Reference Range: Non-Smokers 0-2% Average Smoker 2-4% Heavy Smoker <10% Performed By: #### O HP, IOCAL #### [facility] [address] [place] [address] Technical Sales Director: Mir Chinchilla MD Chloride molar conc 116 mmol/L High 98-110 [facility] Comment on above: Performed By: #### O HP, IOCAL #### [facility] [address] [place] [address] Technical Sales Director: Mir Chinchilla MD FIO2 100% Normal [facility] Comment on above: Performed By: #### O HP, IOCAL #### [facility] [address] [place] [address]117 Technical Sales Director: Mir Chinchilla MD Glucose mass conc 183 mg/dL High 65-105 [facility] Comment on above: Performed By: #### O HP, IOCAL #### [address] [address] Technical Sales Director: Mir Chinchilla MD HCO3 molar conc (Bld) 16.8 mmol/L Low 22-27 [facility] Comment on above: Performed By: #### O HP, IOCAL #### [facility] [address] [place] [address]17 Technical Sales Director: Mir Chinchilla MD Hematocrit Volume Fraction (Bld) 23.2 % Normal [facility] Comment on above: Performed By: #### O HP, IOCAL #### [facility] [address] [place] [address] Technical Sales Director: Mir Chinchilla MD Hemoglobin mass conc (Bld) 7.4 g/dL Normal [facility] Comment on above: Performed By: #### O HP, IOCAL #### [address] [address] Technical Sales Director: Mir Chinchilla MD Negative Base Excess 7.4 mmol/L High 0.0-2.0 [facility] Comment on above: Performed By: #### O HP, IOCAL #### [address] [address] Technical Sales Director: Mir Chinchilla MD Oxygen ppres (Bld) 335.0 mm[Hg] High 75-95 [facility] Comment on above: Performed By: #### O HP, IOCAL #### [address] [address] Technical Sales Director: Mir Chinchilla MD Oxygen saturation in Blood 99.4 % Normal 94-100 [facility] Comment on above: Performed By: #### O HP, IOCAL #### [address] [address] Technical Sales Director: Mir Chinchilla MD pCO2 30.4 mmHg Low 32-45 [facility] Comment on above: Performed By: #### O HP, IOCAL #### [address] [address] Technical Sales Director: Mir Chinchilla MD pCO2 Adj'd for Temp 27.6 Low 32-45 [facility] Comment on above: Performed By: #### O HP, IOCAL #### [address] [address] Technical Sales Director: Mir Chinchilla MD pH (Bld) 7.362 [pH] Normal 7.350-7.450 [facility] Comment on above: Performed By: #### O HP, IOCAL #### [address] [address] Technical Sales Director: Mir Chinchilla MD pH Adjst'd for Temp. 7.390 Normal 7.350-7.450 [facility] Comment on above: Performed By: #### O HP, IOCAL #### [address] [address] Technical Sales Director: Mir Chinchilla MD pO2 Adjst'd for Temp 326.0 mmHg High 75-95 [facility] Comment on above: Performed By: #### O HP, IOCAL #### [address] [address] Technical Sales Director: Mir Chinchilla MD Potassium molar conc 3.2 mmol/L Low 3.6-5.0 [facility] Comment on above: Performed By: #### O HP, IOCAL #### [address] [address] Technical Sales Director: Mir Chinchilla MD Sodium molar conc 140 mmol/L Normal 136-145 [facility] Comment on above: Performed By: #### O HP, IOCAL #### [address] [address] Technical Sales Director: Mir Chinchilla MD PTon 12-26-2018 INR Coag RelTime (PPP) 1.2 {INR} Normal [facility] Comment on above: Result Comment: Therapeutic Range: Moderate Anticoagulant Intensity: INR = 2.0-3.0 High Anticoagulant Intensity: INR = 2.5-3.5 Performed By: #### C BC, PT, PTT, BMP, MG #### [address] [address] Technical Sales Director: Mir Chinchilla MD Prothrombin time (PT) Coag time (PPP) 12.3 s High 9.0-12.0 [facility] Comment on above: Performed By: #### C BC, PT, PTT, BMP, MG #### [address] [address] Technical Sales Director: Mir Chinchilla MD INR Coag RelTime (PPP) 1.0 {INR} Normal [facility] Comment on above: Result Comment: Therapeutic Range: Moderate Anticoagulant Intensity: INR = 2.0-3.0 High Anticoagulant Intensity: INR = 2.5-3.5 Performed By: #### P T, PTT #### [address] [address] Technical Sales Director: Mir Chinchilla MD Prothrombin time (PT) Coag time (PPP) 11.0 s Normal 9.0-12.0 [facility] Comment on above: Performed By: #### P T, PTT #### [address] [phone] Technical Sales Director: Mir Chinchilla MD Platelets,Transfuseon 2018 Platelets,Transfus e Unit Number [id number] Blood Component Type Leukocyte Reduced Irradiated Plateletpheresis Unit Division 00 Status of Unit TRANSFUSED Transfusion Status OK TO TRANSFUSE Normal [facility] Comment on above: Performed By: #### P T, PTT #### [address] [id number] Technical Sales Director: Mir Chinchilla MD Type + Screenon 12-26-2018 Type + Screen Sample Expiration 12/29/2018 Arm Band Number [id number] ABO/Rh(D) O POSITIVE Antibody Screen NEGATIVE Unit Number [id number] Blood Component Type Leukocyte Reduced Red Cell Unit Division 00 Status of Unit TRANSFUSED Transfusion Status OK TO TRANSFUSE Crossmatch Result COMPATIBLE Unit Number [id number] Blood Component Type Leukocyte Reduced Red Cell Unit Division 00 Status of Unit TRANSFUSED Transfusion Status OK TO TRANSFUSE Crossmatch Result COMPATIBLE Unit Number [id number] Blood Component Type Leukocyte Reduced Red Cell Unit Division 00 Status of Unit TRANSFUSED Transfusion Status OK TO TRANSFUSE Crossmatch Result COMPATIBLE Unit Number [id number] Blood Component Type Leukocyte Reduced Red Cell Unit Division 00 Status of Unit TRANSFUSED Transfusion Status OK TO TRANSFUSE Crossmatch Result COMPATIBLE Normal [facility] Comment on above: Performed By: #### T YS #### [address] [address] Technical Sales Director: Mir Chinchilla MD XR CHEST PORTABLEon 12-26-19 19 XR CHEST PORTABLE EXAMINATION: SINGLE XRAY VIEW OF THE CHEST 12/26/2018 8:17 pm COMPARISON: None. HISTORY: ORDERING SYSTEM PROVIDED HISTORY: ETT placement verification TECHNOLOGIST PROVIDED HISTORY: ETT placement verification Ordering Physician Provided Reason for Exam: ETT placement verification. supine Acuity: Unknown Type of Exam: Unknown FINDINGS: ET tube 30 mm above the dong. Loop recorder projects over the left mediastinum. Mild to moderate interstitial edema and cardiomegaly. Bony thorax intact. IMPRESSION: Mild edema or CHF. ET tube as above. Interpreted by: Chaz Mac MD Signed by: Chaz Mac MD 12/26/18 Final result Normal [facility] PRO BNP NTon 07-18-2018 Natriuretic peptide B mass conc (Bld) 823.20 pg/mL High <300 [facility] Comment on above: Result Comment: NOTE : AGE CONGESTIVE HEART FAILURE LIKELY <50 YEARS > 450 pg/mL 50-75 YEARS > 900 pg/mL >75 YEARS >1800 pg/mL[facility]ology [facility] [address] [place], [place] [address]Laboratory Director: Marlon Betts M.D.CLIA No. [id number] CAP Accreditation No. [id number] BASIC METABOLIC PANEL WITH G FRon 07-16-2018 Anion gap 3 molar conc 13 mmol/L Normal 10-19 [facility] Calcium mass conc 9.4 mg/dL Normal 8.5-10.5 [facility] Chloride molar conc 109 mmol/L High 95-107 [facility] CO2 molar conc 21 mmol/L Normal 19-31 [facility] Creatinine mass conc 1.3 mg/dL Normal 0.6-1.3 [facility] GFR/1.73 sq M predicted among blacks MDRD vol rate/area (S/P/Bld) 45.2 mL/min/1.73 m2 Low >59 [facility] GFR/1.73 sq M predicted among non-blacks MDRD vol rate/area (S/P/Bld) 39.0 mL/min/1.73 m2 Low >59 [facility] Comment on above: Result Comment: * ES TIMATED GFR (eGFR) IS CALCULATED FROM SERUM CREATININE AND OTHER VARIABLES AFFECTING ITS VALUE (AGE, RACE, AND SEX). * FOR PATIENT WITH ESTABLISHED CHRONIC KIDNEY DISEASE, THE CHART BELOW DEFINES STAGES WITH eGFR VALUES. Stage 1 90 mL/min/1.73 m2 or greater Stage 2 60-89 mL/min/1.73 m2 Stage 3 30-59 mL/min/1.73 m2 Stage 4 15-29 mL/min/1.73 m2 Stage 5 14 mL/min/1.73 m2 or less Glucose mass conc 181 mg/dL High 70-99 [facility] [facility] Comment on above: Result Comment: DIAG NOSTIC THRESHOLDS FOR DIABETES AND IMPAIRED FASTING GLUCOSE (IFG) FASTING PLASMA GLUCOSE NORMAL <100 mg/dL IFG 100-125 mg/dL DIABETES >/= 126 mg/dL GESTATIONAL DIABETES >/= 92 mg/dL Potassium molar conc 5.0 mmol/L Normal 3.5-5.4 [facility] Sodium molar conc 143 mmol/L Normal 135-146 [email or web address] Urea nitrogen mass conc 39 mg/dL High 8-23 [facility] Vital Signs Date Time Vital Sign Value Performing Clinician Facility 01-23-2024 07:55-0400 Body height 172.7 cm Cari Napoles APRNXumiiP Work Phone: [facility] 01-23-2024 07:55-0400 Body mass index (BMI) [Ratio] 47.44 kg/m2 Cari Shirin ELECTRIC [employer]YING PAN REPAIRERXumiiP Work Phone: [facility] 01-23-2024 07:55-0400 Body temperature 97.5 [degF] Cari Coboscristino [employer]YING [employer] REPAIR[employer] Work Phone: [facility] 01-23-2024 07:55-0400 Body weight 141.52 kg Cari Coboscristino [employer]YING [employer] Work Phone: [facility] 01-23-2024 07:55-0400 Diastolic blood pressure 64 mm[Hg] Cari Coboscristino [employer]LECT[employer]IC [employer]YING [employer] Work Phone: [facility] 01-23-2024 07:55-0400 Heart rate 79 /min Cari Napoles [employer]IC [employer]YING [employer] REPAIRER[employer] Work Phone: [facility] 01-23-2024 07:55-0400 Respiratory rate 18 /min Cari Napoles ELECTRIC FRYING PAN REPAIRER-CITY COUNCILMAN Work Phone: [facility] 01-23-2024 07:55-0400 SaO2% (BldA) [Mass fraction] 95 % Cari Napoles ELECTRIC FRYING PAN REPAIRER-CITY COUNCILMAN Work Phone: [facility] 01-23-2024 07:55-0400 Systolic blood pressure 120 mm[Hg] Cari Napoles ELECTRIC FRYING PAN REPAIRER-CITY COUNCILMAN Work Phone: [facility] 01-09-2024 10:49-0500 Body height 172.7 cm Cari Napoles APRN-CITY COUNCILMAN Work Phone: [facility] 01-09-2024 10:49-0500 Body mass index (BMI) [Ratio] 47.23 kg/m2 Cari Napoles ELECTRIC FRYING PAN REPAIRER-CITY COUNCILMAN Work Phone: [facility] 01-09-2024 10:49-0500 Body temperature 97.9 [degF] Cari Napoles ELECTRIC FRYING PAN REPAIRER-CITY COUNCILMAN Work Phone: [facility] 01-09-2024 10:49-0500 Body weight 140.89 kg Cari Napoles ELECTRIC FRYING PAN REPAIRER-CITY COUNCILMAN Work Phone: [facility] 01-09-2024 10:49-0500 Diastolic blood pressure 72 mm[Hg] Cari Napoles ELECTRIC FRYING PAN REPAIRER-CITY COUNCILMAN Work Phone: [facility] 01-09-2024 10:49-0500 Heart rate 72 /min Cari Napoles APRN-CITY COUNCILMAN Work Phone: [facility] 01-09-2024 10:49-0500 SaO2% (BldA) [Mass fraction] 94 % Cari Napoles ELECTRIC FRYING PAN REPAIRER-CITY COUNCILMAN [facility] 01-09-2024 10:49-0500 Systolic blood pressure 130 mm[Hg] Cari Napoles ELECTRIC FRYING PAN REPAIRER-CITY COUNCILMAN Work Phone: [facility] [employer] 11-01-2023 12:15-0500 Body height 172.7 cm Jered [facility]in [facility] 11-01-2023 12:15-0500 Body mass index (BMI) [Ratio] 47.9 kg/m2 Jered Celestin MD [facility] 11-01-2023 12:15-0500 Body weight 142.88 kg Jered Celestin MD [facility] 11-01-2023 12:15-0500 Diastolic blood pressure 64 mm[Hg] Jerde Celestin MD [facility] 11-01-2023 12:15-0500 Heart rate 87 /min Jered Celestin MD [facility] 11-01-2023 12:15-0500 Respiratory rate 18 /min Jered Celestin MD [facility] 11-01-2023 12:15-0500 SaO2% (BldA) [Mass fraction] 93 % Jered Celestin MD Work Phone: [employer] 11-01-2023 12:15-0500 Systolic blood pressure 132 mm[Hg] Jered Celestin MD Work Phone: [employer] 10-09-2023 16:30-0500 Body height 165.1 cm Evita Baker Other [facility] Other 10-09-2023 16:30-0500 Body mass index (BMI) [Ratio] 51.58 kg/m2 Evita Baker Other [facility] Other 10-09-2023 16:30-0500 Body temperature 98.2 [degF] Evita Baker Other [facility] Other 10-09-2023 16:30-0500 Body weight 140.62 kg Evita Baker Other [facility] Other 10-09-2023 16:30-0500 Respiratory rate 18 /min Evita Baker Other [facility] Other 10-09-2023 16:30-0500 SaO2% (BldA) [Mass fraction] 94 % Evita Baker Other [facility] Other 08-02-2022 11:00-0400 Body height 165.1 cm Danyel Peacekatharine Other [facility] Other 08-02-2022 11:00-0400 Body temperature 97 [degF] Kwameal Chaban Other [facility] Other 08-02-2022 11:00-0400 Diastolic blood pressure 70 mm[Hg] Kwameal Chaban Other [facility] Other 08-02-2022 11:00-0400 Respiratory rate 20 /min Kwameal Chaban Other [facility] Other 08-02-2022 11:00-0400 SaO2% (BldA) [Mass fraction] 96 % Kamal Chaban Other [facility] Other 08-02-2022 11:00-0400 Systolic blood pressure 128 mm[Hg] Kamal Chaban Other [facility] Other 04-12-2022 11:00-0400 Body height 165.1 cm Danyel Peaceban Other [facility] Other 04-12-2022 11:00-0400 Body mass index (BMI) [Ratio] 51.58 kg/m2 Danyel Chaban Other [facility] Other 04-12-2022 11:00-0400 Body temperature 98.2 [degF] Danyel Peaceban Other [facility] Other 04-12-2022 11:00-0400 Body weight 140.62 kg Danyel Peaceban Other [facility] Other 04-12-2022 11:00-0400 Diastolic blood pressure 70 mm[Hg] Danyel Chaban Other [facility] Other 04-12-2022 11:00-0400 Respiratory rate 20 /min Danyel Peaceban Other [facility] Other 04-12-2022 11:00-0400 SaO2% (BldA) [Mass fraction] 93 % Danyel Peaceban Other [facility] Other 04-12-2022 11:00-0400 Systolic blood pressure 126 mm[Hg] Danyel Chaban Other [facility] Other 02-01-2022 10:30-0400 Body height 165.1 cm Danyel Chaban Other [facility] Other 02-01-2022 10:30-0400 Body mass index (BMI) [Ratio] 51.75 kg/m2 Danyel Chaban Other [facility] Other 02-01-2022 10:30-0400 Body temperature 98 [degF] Kwameal Chaban Other [facility] Other 02-01-2022 10:30-0400 Body weight 141.07 kg Danyel Chaban Other [facility] Other 02-01-2022 10:30-0400 Diastolic blood pressure 76 mm[Hg] Kwameal Chaban Other [facility] Other 02-01-2022 10:30-0400 Respiratory rate 20 /min Danyel Peaceban Other [facility] Other 02-01-2022 10:30-0400 SaO2% (BldA) [Mass fraction] Kwameal Chaban Other [facility] Other 02-01-2022 10:30-0400 Systolic blood pressure 132 mm[Hg] Kwameal Chaban Other [facility] Other 01-03-2022 11:30-0500 Body height 165.1 cm Danyel Chaban Other [facility] Other 01-03-2022 11:30-0500 Body mass index (BMI) [Ratio] 52.08 kg/m2 Danyel Chaban Other [facility] Other 01-03-2022 11:30-0500 Body temperature 98.2 [degF] Kwameal Chaban Other [facility] Other 01-03-2022 11:30-0500 Body weight 141.98 kg Danyel Chaban Other [facility] Other 01-03-2022 11:30-0500 Diastolic blood pressure 66 mm[Hg] Danyel Angelo Other [facility] Other 01-03-2022 11:30-0500 Respiratory rate 20 /min Danyel Angelo Other [facility] Other 01-03-2022 11:30-0500 SaO2% (BldA) [Mass fraction] Danyel Angelo Other [facility] Other 01-03-2022 11:30-0500 Systolic blood pressure 114 mm[Hg] Danyel Angelo Other [facility] Other 12-26-2018 20:48-0500 Respiratory rate NOT REPORTED [facility] Comment on above: Performed By: #### OHP, IOCAL #### [employer] [address] [place], [place] [id number] Technical Sales Director: Mir Chinchilla MD Encounters Encounter Date Encounter Type Care Provider Facility Start: 01-31-2024 Refill Cari Napoles ELECTRIC FRYING PAN REPAIRER-CITY COUNCILMAN Work Phone: [facility] Comment on above: Polyneuropathy Start: 01-23-2024 End: 01-24-2024 ambulatory [facility] Start: 01-23-2024 End: 01-23-2024 ambulatory [facility] Start: 01-23-2024 End: 01-23-2024 Office outpatient visit 25 minutes Cari Napoles ELECTRIC FRYING PAN REPAIRER-CITY COUNCILMAN Work Phone: [facility] Comment on above: 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, with long-term current use of insulin ([facility]) (Primary Dx); Stasis dermatitis of lower extremity due to chronic peripheral vascular hypertension; Mixed hyperlipidemia; Pulmonary hypertension ([facility]); PAF (paroxysmal atrial fibrillation) ([facility] Fibrosis of lung ([facility]); Morbid obesity ([facility]) Start: 01-14-2024 Orders Only Cari Napoles ELECTRIC FRYING PAN REPAIRER-CITY COUNCILMAN Work Phone: [facility] Start: 01-14-2024 Refill Cari Napoles ELECTRIC FRYING PAN REPAIRER-CITY COUNCILMAN Work Phone: [facility] Comment on above: Gouty arthropathy Start: 01-09-2024 End: 01-09-2024 ambulatory CARI NAPOLES [facility] Start: 01-09-2024 End: 01-09-2024 Office outpatient visit 15 minutes Cari Napoles ELECTRIC FRYING PAN REPAIRER-CITY COUNCILMAN [facility] Comment on above: Flu-like symptoms (P rimary Dx); Viral URI with cough Start: 12-18-2023 Chart abstracting Silva Sanders DPM Work Phone: [facility] Start: 12-18-2023 End: 12-18-2023 ambulatory SILVA SANDERS Not Available Start: 12-18-2023 End: 12-18-2023 Patient encounter procedure Silva Sanders DPM Work Phone: [facility] Comment on above: Onychomycosis (Prima ry Dx); 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 ([facility]); Pain in both feet; Healed foot ulcer Start: 12-05-2023 Refill Cari Napoles ELECTRIC FRYING PAN REPAIRER-CITY COUNCILMAN Work Phone: [facility] Comment on above: Mixed hyperlipidemia Start: 11-18-2023 Refill Cari Napoles ELECTRIC FRYING PAN REPAIRER-CITY COUNCILMAN Work Phone: [facility] Comment on above: Polyneuropathy Start: 11-01-2023 End: 11-02-2023 ambulatory JERED CELESTIN [facility] Start: 11-01-2023 Encounter for genera l adult medical examination without abnormal findings JERED CELESTIN [facility] Start: 11-01-2023 End: 11-01-2023 Office outpatient visit 25 minutes Jered Celestin MD Work Phone: [facility] Comment on above: PAF (paroxysmal atri al fibrillation) ([facility]) (Primary Dx); Abnormal echocardiogram; Essential hypertension; Nonrheumatic mitral valve regurgitation; LVH (left ventricular hypertrophy); Pulmonary hypertension (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 Start: 11-01-2023 End: 11-01-2023 Patient encounter status Jered Celestin MD Work Phone: [facility] [employer] Work Phone: Start: 10-09-2023 End: 10-09-2023 ambulatory Evita Baker Other [facility] Other Start: 10-09-2023 Office outpatient vi sit 15 minutes Evita Baker [facility] Start: 09-16-2023 End: 09-16-2023 ambulatory SILVA SANDERS Not Available Start: 05-01-2023 ambulatory Nery Chow Facility:[facility] Start: 03-18-2023 End: 03-19-2023 ambulatory CARI NAPOLES Facility:[facility] Start: 03-11-2023 End: 03-12-2023 ambulatory CARI NAPOLES Facility:[facility] Start: 03-08-2023 End: 03-09-2023 ambulatory MARYCRUZ Barnett Facility:[facility] Start: 03-06-2023 End: 03-07-2023 ambulatory MARYCRUZ Barnett Facility:[facility] Start: 03-01-2023 End: 03-02-2023 ambulatory MARYCRUZ Barnett Facility:[facility] Start: 12-04-2022 End: 12-05-[address] DOCTOR GTZ Facility:[facility] Start: 11-22-2022 End: 11-23-[address] DOCTOR GTZ Facility:[facility] Start: 10-30-2022 End: 10-31-2022 ambulatory MARYCRUZ Barnett Facility:[facility] Start: 10-18-2022 End: 10-19-2022 ambulatory Erma Prado PA-C Facility:[facility] Start: 10-10-2022 End: 10-11-2022 ambulatory James Healy Facility:[facility] Start: 10-05-2022 End: 10-06-2022 ambulatory RACHEL MAE Facility:[facility] Start: 10-05-2022 End: 10-06-2022 ambulatory RACHELJessica MAE Facility:[facility] Start: 08-02-2022 End: 08-02-2022 ambulatory Kamaugustine Peaceban Other [facility] Other Start: 08-02-2022 Office outpatient vi sit 15 minutes Kamal Chaban [facility] Start: 07-25-2022 End: 07-26-[address] DOCTOR GTZ Facility:[facility] Start: 04-12-2022 End: 04-12-2022 ambulatory Kamal Chaban Other [facility] Other Start: 04-12-2022 Office outpatient vi sit 25 minutes Kamal Chaban [facility] Start: 04-05-2022 End: 04-06-[address] DOCTOR GTZ Facility:[facility] Start: 02-01-2022 End: 02-01-2022 ambulatory Kamal Chaban Other [facility] Other Start: 02-01-2022 Office outpatient vi sit 25 minutes Kamal Chaban [facility] Start: 01-15-2022 End: 01-16-[address] DANYEL ANGELO Facility:[facility] Start: 01-03-2022 End: 01-03-2022 ambulatory Kamal Chaban Other [facility] Other Start: 01-03-2022 Office outpatient ne w 45 minutes Danyel Angelo [facility] Start: 12-18-2021 End: 12-19-[address] DOCTOR GTZ Facility:[facility] Start: 12-26-2018 End: 12-30-2018 Evaluation and management of inpatient CHRISTIE ESTRADA [facility] Procedures Date Procedure Procedure Detail Performing Clinician Start: 01-23-2024 Adult depression screening assessment Cari Napoles ELECTRIC FRYING PAN REPAIRER-CITY COUNCILMAN Work Phone: Start: 01-09-2024 POCT INFLUENZA A/INFLUENZA B/SARS-COV-2 VERITOR Cari Napoles ELECTRIC FRYING PAN REPAIRER-CITY COUNCILMAN Work Phone: Start: 01-09-2024 Adult depression screening assessment Cari Napoles ELECTRIC FRYING PAN REPAIRER-CITY COUNCILMAN Work Phone: Start: 11-01-2023 Follow-up visit Follow-up JERED CELESTIN Start: 11-01-2023 Ecg routine ecg w/least 12 lds w/i&r Jered Celestin MD Work Phone: Start: 10-14-2023 Adult depression screening assessment Jered Celestin MD Work Phone: Start: 12-30-2018 PULSE OXIMETRY, CONTINUOUS CHRISTIE PERRY YA Start: 12-30-2018 Gluc bld gluc mntr dev cleared fda spec home use CHRISTIE ESTRADA Start: 12-30-2018 PULSE OXIMETRY, CONTINUOUS CHRISTIE PERRY YA Start: 12-30-2018 Ecg routine ecg w/least 12 lds w/i&r CHRISTIE ESTRADA Start: 12-30-2018 DISCHARGE PATIENT CHRISTIE ESTRADA Start: 12-30-2018 Gluc bld gluc mntr dev cleared fda spec home use CHRISTIE ESTRADA Start: 12-30-2018 INITIATE OXYGEN THERAPY PROTOCOL CHRISTIE ESTRADA Start: 12-30-2018 PULSE OXIMETRY, CONTINUOUS CHRISTIE PRUITTN YA Start: 12-30-2018 Gluc bld gluc mntr dev cleared fda spec home use CHRISTIE ESTRADA Start: 12-30-2018 PULSE OXIMETRY, CONTINUOUS CHRISTIE PERRY YA Start: 12-30-2018 Glucose blood reagent strip CHRISTIE LYLE Start: 12-30-2018 PULSE OXIMETRY, CONTINUOUS CHRISTIE BREN YA Start: 12-30-2018 Glucose blood reagent strip CHRISTIE PRUITT VALDO Start: 12-30-2018 Ecg routine ecg w/least 12 lds w/i&r CHRISTIE CHRISTIANA Start: 12-29-2018 Glucose blood reagent strip CHRISTIE PRUITT VALDO Start: 12-29-2018 Gluc bld gluc mntr dev cleared fda spec home use CHRISTIE ESTRADA Start: 12-29-2018 PULSE OXIMETRY, CONTINUOUS CHRISTIE BREN YA Start: 12-29-2018 Glucose blood reagent strip CHRISTIE PRUITT VALDO Start: 12-29-2018 PULSE OXIMETRY, CONTINUOUS CHRISTIE BREN YA Start: 12-29-2018 LAB SCANNED REPORT CHRISTIE ESTRADA Start: 12-29-2018 Transfusion blood/blood components CHRISTIE ESTRADA Start: 12-29-2018 Gluc bld gluc mntr dev cleared fda spec home use CHRISTIE ESTRADA Start: 12-29-2018 PULSE OXIMETRY, CONTINUOUS CHRISTIE BREN YA Start: 12-29-2018 Ecg routine ecg w/least 12 lds w/i&r CHRISTIE ESTRADA Start: 12-29-2018 Glucose blood reagent strip CHRISTIE LORENZANAA Start: 12-29-2018 HEMOGLOBIN AND HEMATOCRIT, BLOOD CHRISTIE ESTRADA Start: 12-29-2018 Gluc bld gluc mntr dev cleared fda spec home use CHRISTIE ESTRADA Start: 12-29-2018 INITIATE OXYGEN THERAPY PROTOCOL CHRISTIE ESTRADA Start: 12-29-2018 PULSE OXIMETRY, CONTINUOUS CHRISTIE BREN YA Start: 12-29-2018 Glucose blood reagent strip CHRISTIE PRUITT VALDO Start: 12-29-2018 Gluc bld gluc mntr dev cleared fda spec home use CHRISTIE ESTRADA Start: 12-29-2018 PULSE OXIMETRY, CONTINUOUS CHRISTIE BREN YA Start: 12-29-2018 Glucose blood reagent strip CHRISTIE PRUITT VALDO Start: 12-29-2018 PULSE OXIMETRY, CONTINUOUS CHRISTIE BREN YA Start: 12-29-2018 Glucose blood reagent strip CHRISTIE PRUITT VALDO Start: 12-29-2018 Ecg routine ecg w/least 12 lds w/i&r CHRISTIE CHRISTIANA Start: 12-28-2018 Gluc bld gluc mntr dev cleared fda spec home use CHRISTIE CHRISTIANA Start: 12-28-2018 PULSE OXIMETRY, CONTINUOUS CHRISTIE BREN YA Start: 12-28-2018 Glucose blood reagent strip CHRISTIE PRUITT VALDO Start: 12-28-2018 PULSE OXIMETRY, CONTINUOUS CHRISTIE BREN YA Start: 12-28-2018 Glucose blood reagent strip CHRISTIE PRUITT VALDO Start: 12-28-2018 TRANSFUSE RED BLOOD CELLS CHRISTIE Lopez Start: 12-28-2018 Gluc bld gluc mntr dev cleared fda spec home use CHRISTIE ESTRADA Start: 12-28-2018 PULSE OXIMETRY, CONTINUOUS CHRISTIE BREN YA Start: 12-28-2018 Glucose blood reagent strip CHRISTIE PRUITT VALDO Start: 12-28-2018 Ecg routine ecg w/least 12 lds w/i&r CHRISTIE ESTRADA Start: 12-28-2018 OT EVAL AND TREAT CHRISTIE ESTRADA Start: 12-28-2018 PT EVAL AND TREAT CHRISTIE ESTRADA Start: 12-28-2018 TRANSFER PATIENT CHRISTIE ESTRADA Start: 12-28-2018 NURSING COMMUNICATION CHRISTIE ESTRADA Start: 12-28-2018 PREPARE RBC (CROSSMATCH) CHRISTIE ESTRADA Start: 12-28-2018 Gluc bld gluc mntr dev cleared fda spec home use CHRISTIE ESTRADA Start: 12-28-2018 INITIATE OXYGEN THERAPY PROTOCOL CHRISTIE ESTRADA Start: 12-28-2018 PULSE OXIMETRY, CONTINUOUS CHRISTIE BREN YA Start: 12-28-2018 Ecg routine ecg w/least 12 lds w/i&r CHRISTIE ESTRADA Start: 12-28-2018 Glucose blood reagent strip CHRISTIE LORENZANAA Start: 12-28-2018 Basic metabolic panel calcium total CHRISTIE ESTRADA Start: 12-28-2018 Blood count complete auto&auto difrntl wbc CHRISTIE ESTRADA Start: 12-28-2018 Gluc bld gluc mntr dev cleared fda spec home use CHRISTIE ESTRADA Start: 12-28-2018 PULSE OXIMETRY, CONTINUOUS CHRISTIE BREN YA Start: 12-28-2018 Glucose blood reagent strip CHRISTIE PRUITT VALDO Start: 12-28-2018 PULSE OXIMETRY, CONTINUOUS CHRISTIE BREN YA Start: 12-28-2018 Glucose blood reagent strip CHRISTIE EDMOND VALDO Start: 12-27-2018 Gluc bld gluc mntr dev cleared fda spec home use CHRISTIE BRENYA Start: 12-27-2018 PULSE OXIMETRY, CONTINUOUS CHRISTIE BREN YA Start: 12-27-2018 Glucose blood reagent strip CHRISTIE EDMOND VALDO Start: 12-27-2018 Glucose blood reagent strip CHRISTIE EDMOND VALDO Start: 12-27-2018 PULSE OXIMETRY, CONTINUOUS CHRISTIE BREN YA Start: 12-27-2018 DIET CARB CONTROL CHRISTIE BRENYA Start: 12-27-2018 Gluc bld gluc mntr dev cleared fda spec home use CHRISTIE BRENYA Start: 12-27-2018 PULSE OXIMETRY, CONTINUOUS CHRISTIE BREN YA Start: 12-27-2018 Glucose blood reagent strip CHRISTIE EDMOND VALDO Start: 12-27-2018 Gluc bld gluc mntr dev cleared fda spec home use CHRISTIE BRENYA Start: 12-27-2018 INITIATE OXYGEN THERAPY PROTOCOL CHRISTIE PRUITTNYA Start: 12-27-2018 PULSE OXIMETRY, CONTINUOUS CHRISTIE BREN YA Start: 12-27-2018 Glucose blood reagent strip CHRISTIE EDMOND VALDO Start: 12-27-2018 Blood count complete automated CHRISTIE BRENYA Start: 12-27-2018 ARTERIAL BLOOD GAS, POC CHRISTIE BRENYA Start: 12-27-2018 Gluc bld gluc mntr dev cleared fda spec home use CHRISTIE BRENYA Start: 12-27-2018 PULSE OXIMETRY, CONTINUOUS CHRISTIE BREN YA Start: 12-27-2018 ARTERIAL BLOOD GAS, POC CHRISTIE BRENYA Start: 12-27-2018 Gluc bld gluc mntr dev cleared fda spec home use CHRISTIE BRENYA Start: 12-27-2018 LACTIC ACID,POINT OF CARE CHRISTIE BRENY A Start: 12-27-2018 Assay of magnesium CHRISTIE BRENYA Start: 12-27-2018 Basic metabolic panel calcium total CHRISTIE BRENYA Start: 12-27-2018 Blood count complete automated CHRISTIE BRENYA Start: 12-27-2018 Calcium ionized CHRISTIE BRENYA Start: 12-27-2018 PULSE OXIMETRY, CONTINUOUS CHRISTIE BREN YA Start: 12-27-2018 PATIENT STATUS (FROM ED OR OR/PROCEDURAL) CHRISTIE ESTRADA Start: 12-26-2018 PULSE OXIMETRY, CONTINUOUS CHRISTIE LEONARD Start: 12-26-2018 Ecg routine ecg w/least 12 lds w/i&r CHRISTIE ESTRADA Start: 12-26-2018 EKG REPORT CHRISTIE ESTRADA Start: 12-26-2018 IP CONSULT TO PULMONOLOGY CHRISTIE ANAHI Lopez Start: 12-26-2018 Assay of magnesium CHRISTIE ESTRADA Start: 12-26-2018 Basic metabolic panel calcium total CHRISTIE ESTRADA Start: 12-26-2018 Blood count complete automated CHRISTIE ESTRADA Start: 12-26-2018 Prothrombin time CHRISTIE ESTRADA Start: 12-26-2018 Thromboplastin time partial plasma/whole blood CHRISTIE ESTRADA Start: 12-26-2018 Radiologic exam chest single view CHRISTIE ESTRADA Start: 12-26-2018 DRAIN CARE CHRISTIE ESTRADA Start: 12-26-2018 IP CONSULT TO DIETITIAN CHRISTIE ESTRADA Start: 12-26-2018 MILDRED TUBE DRAIN CHRISTIE ESTRADA Start: 12-26-2018 NASOGASTRIC TUBE INSERTION CHRISTIE LEONARD Start: 12-26-2018 FULL CODE CHRISTIE ESTRADA Start: 12-26-2018 INITIATE OXYGEN THERAPY PROTOCOL CHRISTIE ESTRADA Start: 12-26-2018 NOTIFY PHYSICIAN (SPECIFY) CHRISTIE EDMONDTracy LEONARD Start: 12-26-2018 NURSING COMMUNICATION CHRISTIE ESTRADA Start: 12-26-2018 TELEMETRY MONITORING CHRISTIE ESTRADA Start: 12-26-2018 VITAL SIGNS CHRISTIE ESTRADA Start: 12-26-2018 ANION GAP (CALC) POC CHRISTIE ESTRADA Start: 12-26-2018 ARTERIAL BLOOD GAS, POC CHRISTIE ESTRADA Start: 12-26-2018 Blood count hemoglobin CHRISTIE ESTRADA Start: 12-26-2018 Chloride other source CHRISTIE ESTRADA Start: 12-26-2018 CREATININE W/GFR POINT OF CARE CHRISTIE CHRISTIANA Start: 12-26-2018 Gluc bld gluc mntr dev cleared fda spec home use CHRISTIE CHRISTIANA Start: 12-26-2018 LACTIC ACID,POINT OF CARE CHRISTIE CHRISTIAN A Start: 12-26-2018 NOTIFICATION PANEL, POC CHRISTIELAW ESTRADA Start: 12-26-2018 Potassium serum plasma/whole blood CHRISTIELAW CHRISTIANJessica Start: 12-26-2018 Sodium serum plasma or whole blood CHRISTIELAW ESTRADA Start: 12-26-2018 Glucose blood reagent strip CHRISTIE EDMOND VALDO Start: 12-26-2018 TRANSFER PATIENT CHRISTIE ESTRADA Start: 12-26-2018 Culture bacterial quanttative colony count urine CHRISTIE ESTRADA Start: 12-26-2018 TRANSFUSE RED BLOOD CELLS CHRISTIE Lopez Start: 12-26-2018 TRANSFUSE PLATELETS CHRISTIE ESTRADA Start: 12-26-2018 TRANSFUSE FRESH FROZEN PLASMA CHRISTIE CHAVEZ Start: 12-26-2018 TRANSFUSE RED BLOOD CELLS CHRISTIE Lopez Start: 12-26-2018 Calcium ionized CHRISTIE PRUITTSALOMÓNJessica Start: 12-26-2018 Immunofixj electrophoresis serum CHRISTIE NATALIE Start: 12-26-2018 Transfusion blood/blood components CHRISTIE ESTRADA Start: 12-26-2018 HEMOGLOBIN AND HEMATOCRIT, BLOOD CHRISTIE PRUITTSALOMÓNJessica Start: 12-26-2018 Prothrombin time CHRISTIE ESTRADA Start: 12-26-2018 Thromboplastin time partial plasma/whole blood CHRISTIE ESTRADA Start: 12-26-2018 TYPE AND SCREEN CHRISTIE ESTRADA Start: 12-26-2018 IP CONSULT TO VASCULAR SURGERY CHRISTIE ESTRADA Start: 12-26-2018 ACTIVATED CLOTTING TIME CHRISTIE ESTRADA Start: 12-26-2018 ACTIVATED CLOTTING TIME CHRISTIE ESTRADA Start: 12-26-2018 Electrophysiologic follow-up w/pac/rec w/arrhyt CHRISTIE ESTRADA Start: 12-26-2018 PATIENT STATUS (FROM ED OR OR/PROCEDURAL) CHRISTIE ESTRADA Start: 12-26-2018 TELEMETRY MONITORING CHRISTIE ESTRADA Start: 12-26-2018 CREATININE W/GFR POINT OF CARE CHRISTIE ESTRADA Start: 12-26-2018 Gluc bld gluc mntr dev cleared fda spec home use CHRISTIE ESTRADA Start: 12-26-2018 IP CONSULT TO IV TEAM CHRISTIE ESTRADA Start: 12-26-2018 Ecg routine ecg w/least 12 lds w/i&r CHRISTIE ESTRADA Start: 12-26-2018 EKG REPORT CHRISTIE ESTRADA Start: 12-26-2018 POC CHEMISTRY (NA,K,ICA,GLU,CALC HCT/HGB,LACTATE,CREA,CL) CHRISTIE ESTRADA Start: 12-26-2018 Echo transesophag r-t 2d w/prb img acquisj i&r CHRISTIE ESRTADA Start: 12-26-2018 R & l hrt cath w/njx l ventriculog img s&i CHRISTIE ESTRADA Plan of Treatment Date Care Activity Detail Author Start: 07-19-2026 DTaP,Tdap and Td Vaccines (3 - Td or Tdap) DTaP,Tdap and Td Vaccines (3 - Td or Tdap) [facility] Start: 01-22-2025 Adult BMI Follow Up Plan Adult BMI F ollow Up Plan [facility] Start: 01-22-2025 Adult BMI Screening Adult BMI Screen ing [facility] Start: 01-22-2025 Depression Screening Depression Scre ening [facility] Start: 01-22-2025 Fall Risk Screening Fall Risk Screen ing [facility] Start: 01-22-2025 Tobacco Screening Tobacco Screening [facility] Start: 01-08-2025 Adult BMI Screening Adult BMI Screen ing [facility] Start: 01-08-2025 Depression Screening Depression Scre ening [facility] Start: 01-08-2025 Fall Risk Screening Fall Risk Screen ing [facility] Start: 01-08-2025 Tobacco Screening Tobacco Screening [facility] Start: 11-01-2024 Adult BMI Screening Adult BMI Screen ing [facility] Start: 11-01-2024 Tobacco Screening Tobacco Screening [facility] Start: 10-14-2024 Depression Screening Depression Scre ening [facility] Start: 10-01-2024 Fall Risk Screening Fall Risk Screen ing [facility] Start: 10-01-2024 Medicare Annual Well ness Visit Medicare Annual Wellness Visit [facility] Start: 03-18-2024 End: 03-18-2024 Patient encounter procedure 03/18/2024 11:15 AM EDT Procedure Visit [facility] [address] [place] [address] Silva Sanders DPM [address] [place] [address] [facility] Start: 01-29-2024 Administration of varicella zoster vaccine Zoster (Shingles) Vaccine (1 of 2) [facility] Comment on above: Postponed from 12/20 (Patient Refused) Start: 01-23-2024 End: 01-23-2024 Patient encounter procedure 01/23/2024 8:00 AM EDT [facility] [address] [place] [id number] Cari Napoles, ELECTRIC FRYING PAN REPAIRER-CITY COUNCILMAN [address] [place] [address] [facility] - [facility] Start: 12-18-2023 End: 12-18-2023 Patient encounter procedure 12/18/2023 11:15 AM EST Procedure Visit [facility] [address] [place] [id number] Silva Sanders DPM [address] [place] [address] [facility] Start: 1988 Administration of varicella zoster vaccine Zoster (Shingles) Vaccine (1 of 2) [facility] Start: 1956 Adult BMI Follow Up Plan Adult BMI F ollow Up Plan [facility] POCT EKG POCT EKG ECG Rou don Abnormal echocardiogram Essential hypertension Nonrheumatic mitral valve regurgitation LVH (left ventricular hypertrophy) Pulmonary hypertension ([facility]) S/P ablation of atrial fibrillation Healthcare maintenance 11/01/2023 12:20 PM EST [facility] Work Phone: Immunizations Immunization Date Immunization Notes Care Provider [facility] 08-21-2023 Influenza Vaccine, Quadrivalent, Adjuvanted Jered Ceelstin MD Work Phone: [facility] 11-21-2022 Influenza Vaccine, Quadrivalent, Adjuvanted Jered Celestin MD Work Phone: [facility] 01-09-2021 COVID-19 Vaccine Pratima - Documentation Purposes Only Danyel Angelo Other [facility] Other 09-02-2020 influenza, high dose seasonal, preservative-free Jered Celestin MD Work Phone: [facility] 09-01-2020 pneumococcal conjuga te vaccine, 13 valent Jered Celestin MD Work Phone: [facility] 08-27-2019 influenza, injectabl e, quadrivalent, contains preservative Jered Celestin MD Work Phone: [facility] 08-14-2018 Seasonal trivalent influenza vaccine, adjuvanted, preservative free Jered Celestin MD Work Phone: [facility] 07-19-2017 Influenza, injectabl e, Madin [place] Canine Kidney, quadrivalent with preservative Jered Celestin MD Work Phone: [facility] 11-12-2016 influenza, high dose seasonal, preservative-free Jered Celestin MD Work Phone: [facility] 07-19-2016 pneumococcal conjuga te vaccine, 13 valent Jered Celestin MD Work Phone: [facility] 07-19-2016 TD(adult) unspecifie d formulation Jered Celestin MD Work Phone: [facility] 07-19-2016 tetanus and diphther ia toxoids, adsorbed, preservative free, for adult use (2 Lf of tetanus toxoid and 2 Lf of diphtheria toxoid) Jered Celestin MD Work Phone: [facility] 10-14-2015 influenza, seasonal, injectable Jered Celestin MD Work Phone: [facility] 10-14-2014 pneumococcal polysaccharide vaccine, 23 valent Jered Celestin MD Work Phone: [facility] Payers Date Payer Category Payer Medicaid [id number] 2023 Private Health Insurance [id number] 2023 Medicare [id number] 2023 Private Health Insurance [id number] 2017 Medicaid [id number] 2017 Medicare [id number] 1959 Medicaid [id number] 1959 Medicare [id number] 2.1 [id number] 1959 Medicare [id number] 1938 Unknown [id number] 2.16.8 40.1.911389.3.579.2.175 1938 Unknown [id number] 2.16.84 0.1.801740.3.579.2.593 1938 Unknown [id number] 2.16.84 0.1.560057.3.579.2.593 1938 Unknown [id number] 2.16.84 0.1.715254.3.579.2.593 1938 Unknown [id number] 2.16.84 0.1.170257.3.579.2.593 1938 Unknown [id number] 2.16.84 0.1.682261.3.579.2.593 1938 Unknown [id number] 2.16.84 0.1.253334.3.579.2.593 1938 Unknown [id number] 2.16.84 0.1.679540.3.579.2.593 1938 Unknown [id number] 2.16.8 40.1.849018.3.579.2.718 1938 Unknown [id number] 2.16.8 40.1.261782.3.579.2. 1938 Unknown [id number] 2.16.8 40.1.831033.3.579.2. 1938 Unknown [id number] 2.16.8 40.1.900144.3.579.2. 1938 Unknown [id number] 2.16.8 40.1.322335.3.579.2. 1938 Unknown [id number] 2.16.8 40.1.277971.3.579.2. 1938 Unknown [id number] 2.16.8 40.1.622766.3.579.2.8 1938 Unknown [id number] 2.16.8 40.1.078354.3.579.2. 1938 Unknown [id number] 2.16.8 40.1.657049.3.579.2.8 1938 Unknown [id number] 2.16.8 40.1.675521.3.579.2. 1938 Unknown [id number] 2.16.84 0.1.699019.3.579.2.8 1938 Unknown [id number] 2.16.84 0.1.690681.3.579.2. 1938 Unknown [id number] 2.16.84 0.1.473051.3.579.2.1259 1938 Unknown [id number] 2.16.840. 1.381239.3.579.2.1258 1938 Unknown [id number] 2.16.8 40.1.421415.3.579.2.1286 1938 Unknown [id number] 2.16.8 40.1.046171.3.579.2.1286 1938 Unknown [id number] 2.16.84 0.1.291397.3.579.2.1286 1938 Unknown [id number] 2.16.8 40.1.621319.3.579.2.1286 1938 Unknown [id number] 2.16.84 0.1.529779.3.579.2.1286 Social History Date Type Detail Facility Start: 12-06-2020 End: 10-01-2023 Sex Assigned At [facility] Start: 04-05-2023 End: 11-01-2023 Tobacco smoking status NHIS Never smoked tobacco [facility] History of tobacco use Passive smoker [facility] Start: 04-05-2023 End: 11-01-2023 Tobacco use and exposure Smokeless tobacco non-user [facility] Start: 11-01-2023 End: 01-23-2024 Alcohol intake Ex-drinker (finding) [facility] Start: 12-06-2020 End: 10-01-2023 History of Social function [facility] Has the [employer], or [employer] threatened to shut off services in your home in past 12Mo No [facility] Are you now , , , , never or living with a partner? Never [facility] How often to you hav e a drink containing alcohol? Never [facility] How many standard drinks containing alcohol do you have on a typical day? Patient does not drink [facility] Do you feel stress - tense, restless, nervous, or anxious, or unable to sleep at night because your mind is troubled all the time - these days [OSQ] Not at all [facility] Start: 1940 Sex Assigned At Not on file P [facility] Medical Equipment Procedure Code Equipment Code Equipment Origin al Text Equipment Identifier Dates Lens Iol Ultrase rt 18.0d - [id number] - [id number] Start: 12-06-2020 USE FOUR TIMES A DAY. ICD 10 E11.65 [id number] Start: 01-13-2023 USE DIRECTED 3 TIMES A DAY [id number] Start: 12-17-2022 USE FOUR TIMES A DAY. ICD 10 E11.65 [id number] Start: 01-13-2023 USE DIRECTED 3 TIMES A DAY [id number] Start: 12-17-2022 Clinical Notes 09-04-2021 to 01-23-2024 Cari Napoles, ELECTRIC [employer]YING PAN REPAIRER-CITY COUNCILMAN - 01/23/2024 8:00 AM EDT Note Date & Type Note Facility 01-23-2024 History of Present illness Narrative Subjective Patient ID: Joycelyn Juarez is a 83 y.o. female. Here for diabetes check along with blood pressure and lipids She does check her blood sugars Her lows are 90 her highs are in the 150s, her usuals are 130s She does not check her blood pressure but does take her medication daily She is not having any problem with any of her medication She does wear support stockings/wraps daily and this has been very helpful along with her diuretic to prevent swelling in her lower extremities The people she lives with have stopped smoking and she is very appreciative Her own cough has now subsided She is also working on her weight, she is eating healthier Dr Hebert checks her A1c and her microalbumin and her next apt is in March Her next eye exam is February 04 Her breathing has been good and she has not been short of breath The gabapentin has been working for her neuropathy She does use her walker at all times in the house, she will use her cane if going down steps outside of the home The following portions of the patient's history were reviewed and updated as appropriate: allergies, current medications, past family history, past medical history, past social history, past surgical history, problem list, and medication reconciliation was completed including current medication and post discharge medication. Review of Systems Constitutional: Negative. HENT: Negative. Eyes: Negative. Cardiovascular: Positive for leg swelling. Negative for palpitations. Gastrointestinal: Negative. Endocrine: Negative. Genitourinary: Negative. Allergic/Immunologic: Negative. Neurological: Negative. Hematological: Negative. Psychiatric/Behavioral: Negative. Objective Physical Exam Vitals and nursing note reviewed. Constitutional: Appearance: She is obese. HENT: Head: Normocephalic. Eyes: Conjunctiva/sclera: Conjunctivae normal. Neck: Vascular: No carotid bruit. Cardiovascular: Rate and Rhythm: Normal rate and regular rhythm. Heart sounds: Normal heart sounds. No murmur heard. Pulmonary: Effort: Pulmonary effort is normal. Breath sounds: Normal breath sounds. Musculoskeletal: General: No swelling. Right lower leg: No edema. Left lower leg: No edema. Comments: Has bilateral support stockings in place, no edema identified today Lymphadenopathy: Cervical: No cervical adenopathy. Skin: General: Skin is warm and dry. Capillary Refill: Capillary refill takes less than 2 seconds. Neurological: Mental Status: She is alert and oriented to person, place, and time. Assessment/Plan Joycelyn was seen today for hypertension and hyperlipidemia. Diagnoses and all orders for this visit: Type 2 diabetes mellitus with stage 3a chronic kidney disease, with long-term current use of insulin ([facility]) Stasis dermatitis of lower extremity due to chronic peripheral vascular hypertension Mixed hyperlipidemia - Comprehensive metabolic panel; Future - Lipid panel; Future Pulmonary hypertension ([facility]) PAF (paroxysmal atrial fibrillation) ([facility]) Fibrosis of lung ([facility]) Morbid obesity ([facility]) Her blood sugars sound good, keep apt with Dr Moreno in March, keep eye apt in February No changes made in diabetic medication Her neuropathy seems to be under good control as well with her low dose neurontin Her diuretic and support stockings along with the lac hydrin are working well for pulmonary hypertension, her venous stasis and dermatatis Her heart rhythm is current stable and she remains on anticoagulant Her lung status is stable and her relatives she lives with stopping smoking has really assisted this Blood pressure is stable and no changes are made today Will have her come back in 6 months and as needed Labs drawn today to check kidney status and cholesterol Patient noted to have elevated BMI and the following intervention(s) were applied: encouragement to exercise within her ability to do so and continue to make healthy choices eating to continue to loose weight . ALEXANDER Perry 01/23/24 1008 documented in this encounter [facility] 01-23-2024 Evaluation note Diagnosis Type 2 diabetes mellitus with stage 3a chronic kidney disease, with long-term current use of insulin ([facility])- Primary Stasis dermatitis of lower extremity due to chronic peripheral vascular hypertension Mixed hyperlipidemia Pulmonary hypertension ([facility]) Other chronic pulmonary heart diseases PAF (paroxysmal atrial fibrillation) ([facility]) Atrial fibrillation Fibrosis of lung ([facility]) Postinflammatory pulmonary fibrosis Morbid obesity ([facility]) Morbid obesity documented in this encounter [facility]03-07-2024 History of Present illness Narrative* Cari Napoles, ELECTRIC FRYING PAN REPAIRER-CITY COUNCILMAN - 01/09/2024 10:40 AM EST Subjective Patient ID: Joycelyn Juarez is a 83 y.o. female. She has had a cough since Saturday No fever Eating and drinking well She has lost 5 lbs since her last apt because she has been watching her food intake She has been wheezing and has been somewhat short of breath with the cough And the cough has been waking her up The following portions of the patient's history were reviewed and updated as appropriate: allergies, current medications, past family history, past medical history, past social history, past surgicalhistory, problem list, and medication reconciliation was completed including current medication andpost discharge medication. Review of Systems Constitutional: Negative. HENT: Positive for congestion. Eyes: Negative. Respiratory: Positive for cough, shortness of breath and wheezing. Gastrointestinal: Negative. Endocrine: Negative. Genitourinary: Negative. Allergic/Immunologic: Negative. Neurological: Negative. Hematological: Negative. Psychiatric/Behavioral: Negative. Objective Physical Exam Vitals and nursing note reviewed. Constitutional: Appearance: She is obese. HENT: Head: Normocephalic. Right Ear: Tympanic membrane, ear canal and external ear normal. Left Ear: Tympanic membrane, ear canal and external ear normal. Nose: Congestion and rhinorrhea present. Mouth/Throat: Mouth: Mucous membranes are moist. Eyes: Conjunctiva/sclera: Conjunctivae normal. Neck: Vascular: No carotid bruit. Cardiovascular: Rate and Rhythm: Normal rate and regular rhythm. Heart sounds: Normal heart sounds. No murmur heard. Pulmonary: Effort: Pulmonary effort is normal. Breath sounds: Normal breath sounds. No wheezing. Musculoskeletal: Cervical back: Neck supple. No tenderness. Lymphadenopathy: Cervical: No cervical adenopathy. Skin: General: Skin is warm and dry. Capillary Refill: Capillary refill takes less than 2 seconds. Neurological: Mental Status: She is alert and oriented to person, place, and time. Psychiatric: Thought Content: Thought content normal. Judgment: Judgment normal. Assessment/Plan Joycelyn was seen today for cough. Diagnoses and all orders for this visit: Flu-like symptoms - POCT Influenza A/Influenza B/SARS-COV-2 Veritor Viral URI with cough Other orders - [id number] 2-30-10 mg/5 mL syrup; Take 5 mL by mouth 4 (four) times a day as needed for allergies. Negative for influenza and covid Afebrile and lungs clear, will treat symptomatically and keep hydrated, rest She is to return for her DM apt on 01/19 ALEXANDER Perry 01/09/24 1214 [facility] History of Present illness Narrative* Silva Sanders DPM - 12/18/2023 11:15 AM EST HPI: Patient presents in office today for diabetic nail care. Patient is Type 2 Diabetic. She states that over the years her nails have become long, thick, and hard to trim on her own. Rt great toe she feels like nail is growing into the skin, painful wit sock and shoes. She has no other concerns today. Side: both. Location: all toes. Duration: years. Severity of symptoms: 6. Onset: Gradual. Frequency: Constant. Status: The same. Context: Walking. NAILS: Thick,discolored. Associated Symptoms: diabetes,cramping in the feet/legs,numbness/tingling in the feet/legs. Relieved by: nothing. Previous Treatment: soaking. History of ulcers/wounds: No. Has treatment helped with pain: No. Recent BS reading, if diabetic: 115 PCP: Dr Rachel Mae, Dr. Brown. Date of Last visit: 07/22/2023 Examination: General Examination: GENERAL EXAMINATIONpleasant, well nourished, well developed, in no acute distress. FOOT EXAM: Date of Last Foot Exam 12/18/23 Vascular: DORSALIS PEDIS PULSE:0/4 bilateral. POSTERIOR TIBIAL PULSE:1/4 bilateral. TEMPERATURE GRADIENT:warm to cool. EDEMA:+2-3 pitting edema to the bilateral LE. CAPILLARY FILLING TIME(sec):capillary fill intact bilateral digits less than 3 secs. Neurologic: VIBRATORY:normal, intact to the hallux IPJ bilateral. SEMMES-CECE 5.07 MONOFILAMENTnormal, intact to the plantar ball of the foot and toes. Dermatologic: SKIN FINDINGS:Hemosiderin deposition and venous insufficiency changes to the anterior shins bilateral. Prior healed scar with atrophy doretha to the medial left ankle from prior ulceration. HYPERKERATOSIS:none. NAIL PATHOLOGY:digits 1-5 bilateral are intact. SKIN PATHOLOGY:thin, decreased hair growth bilateral. Nail Pathology: Left Foot: 1 (great toe)elongated, thick, discolored, crumbly, dystrophic and with subungal debris, incurvatedto the medial and lateral border. 2elongated, thick, discolored, crumbly, dystrophic and with subungal debris. 3elongated, thick, discolored, crumbly, dystrophic and with subungal debris. 4elongated, thick, discolored, crumbly, dystrophic and with subungal debris. 5elongated, thick, discolored, crumbly, dystrophic and with subungal debris. Nail Pathology: Right Foot: 1 (great toe)elongated, thick, discolored, crumbly, dystrophic and with subungal debris, incurvatedto the medial and lateral border. 2elongated, thick, discolored, crumbly, dystrophic and with subungal debris. 3elongated, thick, discolored, crumbly, dystrophic and with subungal debris. 4elongated, thick, discolored, crumbly, dystrophic and with subungal debris. 5elongated, thick, discolored, crumbly, dystrophic and with subungal debris. Orthopedic: FOOT MORPHOLOGY:Planus. JOINT RANGE OF MOTION:without pain or crepitus. DEFORMITIES:Mild hammertoe deformities 2 through 4 bilateral. MUSCLE STRENGTH5/5 for all pedal groups tested. Modifier: -Q8. Diabetic Shoe & Insert: Previous amputation of the other foot, or part of the foot: No History of previous foot ulceration of foot: Yes History of pre-ulcerative callous of foot: No Peripheral of Neuropathy with evidence of callous formation: Yes Foot deformity: Yes Poor circulation: Yes Assessment: 1. Diabetes mellitus without complication - E11.9 (Primary) 2. Dermatophytosis of nail - B35.1 3. Pain in left foot - M79.672 4. Pain in right foot - M79.671 5. Venous insufficiency - I87.2 6. Edema of both legs - R60.0 Plan: Onychomycosis: 1. Nails were debrided in length and thickness by manual and mechanical means. 2. Advised patient on continued proper diabetic foot care including daily monitoring of their feet for any new complaints or concerns that may arise. 3. Discussed importance of tight blood sugar control to prevent future complications. 4. RTC: 9-12 weeks or as needed if problems arise. documented in this encounterCox [id number] History of Present illness Narrative* Jered Celestin MD - 11/01/2023 11:45 AM EST Images from the original note were not included. Jered Celestin MD, [facility] Chaz Francis, [place], [place] [address] [place] [address] Name: Joycelyn Juarez : 1940 Gender: female PCP: ALEXANDER HOOPER Age: 82 y.o. PCP Visit Date: 10/30/23 CHIEF COMPLAINT: Joycelyn Juarez is an 82 y.o. female Here for follow up visit. Moving to [facility]. Doing well. No chest pain. Stable dyspnea. Props up in bed and using 2L O2 with CPAP. No PND. No LH, falls or syncope. Using walker. No palpitations. No bleeding or TIAs. No edema. Weight stable. PAST MED/SURG HISTORY: Past Medical History: Diagnosis Date Acute kidney failure ([facility]) 09/17/2019 Acute postoperative respiratory insufficiency 01/28/2023 Asthma Cataract Diabetes mellitus type 2, controlled ([facility]) Gout History of loop recorder Hyperlipidemia Hypothyroidism Leukocytosis 09/17/2019 Past Surgical History: Procedure Laterality Date CARDIOVERSION EXTRACTION CATARACT INTRAOCULAR LENS Left 12/06/2020 Performed by Ansley Sanders MD at [facility] [place] [place] EYE SURGERY HERNIA REPAIR INSERTION LOOP RECORDER Social History Socioeconomic History Marital status: Single Spouse name: Not on file Number of children: Not on file Years of education: Not on file Highest education level: Not on file Occupational History Not on file Tobacco Use Smoking status: Never Smokeless tobacco: Never Vaping Use Vaping Use: Never used Substance and Sexual Activity Alcohol use: Not Currently Drug use: Defer Sexual activity: Defer Other Topics Concern Caffeine Use No Social History Narrative Not on file Social Determinants of Health Financial Resource Strain: Low Risk (10/01/2023) Overall Financial Resource Strain (CARDIA) Difficulty of Paying Living Expenses: Not hard at all Food Insecurity: No Food Insecurity (10/14/2023) Hunger Screening Food Insecurity - Worry: Never True Food Insecurity - Inability: Never True Transportation Needs: No Transportation Needs (10/01/2023) PRAPARE - Transportation Lack of Transportation (Medical): No Lack of Transportation (Non-Medical): No Physical Activity: Inactive (10/01/2023) Exercise Vital Sign Days of Exercise per Week: 0 days Minutes of Exercise per Session: 0 min Stress: No Stress Concern Present (10/01/2023) [employer] [place] [employer] - Occupational Stress Questionnaire Feeling of Stress : Not at all Social Connections: Socially Isolated (10/01/2023) Social Connection and Isolation Panel [NHANES] Frequency of Communication with Friends and Family: Once a week Frequency of Social Gatherings with Friends and Family: Never Attends [employer] Services: Never Active Member of Clubs or Organizations: No Attends Club or Organization Meetings: Never Marital Status: Never Interpersonal Safety: Not At Risk (10/01/2023) Humiliation, Afraid, Rape, and Kick questionnaire Fear of Current or Ex-Partner: No Emotionally Abused: No Physically Abused: No Sexually Abused: No FAMILY HISTORY: Family History Problem Relation Age of Onset Hypertension Mother Hypertension Father Cancer Sister Diabetes Sister REVIEW OF SYSTEMS: Review of Systems Constitutional: Negative for fever, chills, diaphoresis, activity change, appetite change, fatigue and unexpected weight change. HENT: Negative for nosebleeds. Respiratory: Positive for cough and shortness of breath. Negative for wheezing. Cardiovascular: Positive for leg swelling. Negative for chest pain, palpitations, PND, chest discomfort, orthopnea and tachycardia. Gastrointestinal: Negative for blood in stool and anal bleeding. Genitourinary: Negative for hematuria. Skin: Negative for wound. Neurological: Negative for dizziness, syncope, facial asymmetry, speech difficulty, weakness, light-headedness and numbness. Hematological: Does not bruise/bleed easily. CURRENT MEDICATIONS: Current Outpatient Medications: albuterol (PROVENTIL HFA;VENTOLIN HFA) 90 mcg/actuation inhaler, INHALE 2 PUFFS 4 TIMES A DAY NEEDED, Disp: , Rfl: allopurinoL (ZYLOPRIM) 300 mg tablet, Take 1 tablet (300 mg total) by mouth in the morning., Disp: 90 tablet, Rfl: 1 ammonium lactate (LAC-HYDRIN FIVE) 5 % lotion, Apply 1 application. topically daily., Disp: 226 g, Rfl: 1 apixaban (ELIQUIS) 5 mg tablet, Take 1 tablet (5 mg total) by mouth in the morning and 1 tablet (5 mg total) before bedtime., Disp: 180 tablet, Rfl: 3 atorvastatin (LIPITOR) 40 mg tablet, Take 1 tablet (40 mg total) by mouth in the morning., Disp: 90tablet, Rfl: 1 BD ULTRA-FINE MINI PEN NEEDLE 31 gauge x 3/16 needle, USE FOUR TIMES A DAY. ICD 10 E11.65, Disp: ,Rfl: benzonatate (TESSALON PERLES) 200 mg capsule, TAKE 1 CAPSULE BY MOUTH THREE TIMES A DAY FOR 10 DAYS, Disp: , Rfl: bumetanide (BUMEX) 2 mg tablet, Take 1 tablet (2 mg total) by mouth daily., Disp: 90 tablet, Rfl: 1 calcium carbonate-vitamin D3 (OSCAL 500 + D) 500 mg(1,250mg) -200 units per tablet, Take 1 tablet by mouth in the morning and 1 tablet in the evening. Take with meals., Disp: , Rfl: cetirizine (ZyrTEC) 10 mg tablet, Take 1 tablet (10 mg total) by mouth in the morning., Disp: 90 tablet, Rfl: 1 dilTIAZem CD (CARDIZEM CD) 120 mg 24 hr capsule, Take 1 capsule (120 mg total) by mouth in the morning and 1 capsule (120 mg total) before bedtime., Disp: 60 capsule, Rfl: 6 doxycycline (VIBRA-TABS) 100 mg tablet, TAKE 1 TABLET BY MOUTH TWICE A DAY FOR 10 DAYS, Disp: , Rfl: flash glucose scanning reader (FREESTYLE GLO 14 DAY READER) misc, FreeStyle Glo 14 Day [place], Disp: , Rfl: flash glucose sensor (FREESTYLE GLO 14 DAY SENSOR) kit, FreeStyle Glo 14 Day Sensor kit, Disp: , Rfl: gabapentin (NEURONTIN) 100 mg capsule, Take 1 capsule (100 mg total) by mouth See Admin Instructions. Take an additional 100mg with the 2 300 mg capsules at bedtime, Disp: 90 capsule, Rfl: 0 gabapentin (NEURONTIN) 300 mg capsule, Take 2 capsules in the am, one capsule at lunch, one capsulein the afternoon and two capsules at bedtime (add 100mg at bedtime only), Disp: 540 capsule, Rfl: 0 insulin aspart U-100 (NovoLOG) 100 unit/mL injection, Inject 0.4 mL (40 Units total) under the skinin the morning and 0.4 mL (40 Units total) at noon and 0.4 mL (40 Units total) in the evening. Inject before meals. Takes 20 units am, 30 units lunch and 30 unit supper.., Disp: , Rfl: insulin detemir U-100 (LEVEMIR) 100 unit/mL injection, Inject 0.2 mL (20 Units total) under the skin in the morning and 0.2 mL (20 Units total) before bedtime. 80 units at night., Disp: , Rfl: insulin lispro (HumaLOG KwikPen Insulin) 100 unit/mL insulin pen, INJECT 20 UNITS UNDER THE SKIN ATBREAKFAST, 30 UNITS AT LUNCH AND DINNER, Disp: , Rfl: levothyroxine (SYNTHROID, LEVOTHROID) 137 MCG tablet, Take 1 tablet (137 mcg total) by mouth in themorning., Disp: 90 tablet, Rfl: 3 lidocaine (LIDODERM) 5 %, lidocaine 5 % topical patch, Disp: , Rfl: methylPREDNISolone (MEDROL, MARCK,) 4 mg tablet, TAKE 6 TABLETS ON DAY 1 DIRECTED ON PACKAGE AND DECREASE BY 1 TAB EACH DAY FOR A TOTAL OF 6 DAYS, Disp: , Rfl: mirabegron (MYRBETRIQ) 25 mg tablet extended release 24 hr, Take 2 tablets (50 mg total) by mouth in the morning., Disp: 90 tablet, Rfl: 3 rOPINIRole (REQUIP) 0.5 mg tablet, Take 1 tablet (0.5 mg total) by mouth nightly., Disp: 90 tablet,Rfl: 3 spironolactone (ALDACTONE) 25 mg tablet, Take 1 tablet (25 mg total) by mouth in the morning., Disp: 90 tablet, Rfl: 3 TRADJENTA 5 mg tablet, Take 1 tablet (5 mg total) by mouth in the morning., Disp: , Rfl: TRUE METRIX GLUCOSE METER [facility], TO TEST BLOOD SUGAR THREE TIMES DAILY, Disp: , Rfl: TRUE METRIX GLUCOSE TEST STRIP strip, USE DIRECTED 3 TIMES A DAY, Disp: , Rfl: ALLERGIES: Allergies as of 11/01/2023 (No Known Allergies) VITALS: There were no vitals filed for this visit. Admit Weight: Wt Readings from Last 3 Encounters: 10/14/23 (!) 140.3 kg (309 lb 3.2 oz) 07/22/23 (!) 142 kg (313 lb) 04/17/23 (!) 142.9 kg (315 lb) There is no height or weight on file to calculate BMI. PHYSICAL EXAM: Physical Exam Constitutional She appears well-developed and well-nourished. She is cooperative. Non-toxic appearance. No distress. HENT Head Normocephalic and atraumatic. Skin negative for abrasion and bruising. Patient does not have cranial nerve VII deficit. Eyes: Conjunctivae and EOM are normal. Pupils are equal, round, and reactive to light. EOM: extraocular movement intactRight eye exhibits normal extraocular motion. Left eye positive for nystagmus.. Left eye exhibits normal extraocular motion. Left eye negative for nystagmus.. Neck Trachea normal. Neck supple. Carotid bruit is not present. .No stridor present. Cardiovascular: Normal rate and regular rhythm. Murmur heard. Systolic murmur is present with a grade of 1/6. Pulses: Carotid pulses are 2+ on the right side and 2+ on the left side. no JVD Edema: LLE 1+ and pitting RLE wrapped distant heart soundsno S3 sounds and no S4 sounds Pulmonary/Chest: Effort normal. She has decreased breath sounds. She has no wheezes. She has no rhonchi. She has no rales. No stridor. Abdominal: Bowel sounds are normal. She exhibits no distension, no abdominal bruit, no ascites and no pulsatile midline mass. Soft. There is no hepatosplenomegaly. There is no abdominal tenderness. There is no rigidity, no rebound, no guarding and no CVA tenderness. Musculoskeletal: Cervical back: Neck supple. Vascular: Left Lower Extremity Left lower extremity edema: 1+ and pitting Carotid: Right carotid: 2+ Left carotid: 2+ Lymph Right cervical: No supraclavicular and no cervical adenopathy present. Left cervical: No supraclavicular and no cervical adenopathy present. Neurological She is alert. Speech: normal speech Skin: Turgor is normal. No petechiae and no rash noted. She is not diaphoretic. No cyanosis. Nails show no clubbing. Psychiatric: Her speech is normal and behavior is normal. Attention, mood and affect normal. LAB REVIEW: CBC: Lab Results Component Value Date WBC 8.7 10/04/2015 HGB 13.1 10/04/2015 HCT 41.2 10/04/2015 MCV 91 10/04/2015 PLT 191 10/04/2015 CHEM: Lab Results Component Value Date GLU 155 (H) 07/22/2023 CALCIUM 9.1 07/22/2023 SODIUM 140 07/22/2023 K 4.0 07/22/2023 CO2 29 07/22/2023 BUN 31 (H) 07/22/2023 CREATININE 1.33 (H) 07/22/2023 Lipids: Lab Results Component Value Date CHOL 112 (L) 07/22/2023 CHOL 105 (L) 10/09/2016 CHOL 102 (L) 04/11/2016 Lab Results Component Value Date HDL 34 (L) 07/22/2023 HDL 35 (L) 10/09/2016 HDL 32 (L) 04/11/2016 Lab Results Component Value Date LDLCALC 42 07/22/2023 LDLCALC 40 10/09/2016 LDLCALC 40 04/11/2016 Lab Results Component Value Date TRIG 179 (H) 07/22/2023 TRIG 149 10/09/2016 TRIG 151 (H) 04/11/2016 No results found for: CHOLHDL No diagnosis found. No orders of the defined types were placed in this encounter. No orders of the defined types were placed in this encounter. There are no discontinued medications. CARDIOVASCULAR STUDIES: 02/19 stress EKG: No Ischemic EKG Changes. No arrhythmia noted during test. IMAGING: There is no ischemia present. No prior infarct seen.. The left ventricular ejection fraction was normal and measured 62%. Left ventricular wall motion was normal. SYMPTOMS: The patient did not complain of chest pain. She experienced dyspnea during the infusion. 04/21 echo - TDS. EF 50-55%. Mild LVH Severe bi-atrial enlargement. Calcified mitral valve. Mild mitral regurgitation. Trivial tricuspid regurgitation with mild pulmonary hypertension, RVSP 39 mmHg. Calcified aortic valve. 08/2018 [employer] Implantable Loop Recorder 12/23 AFIb ablation 03/22 echo - EF 55%. Mild to moderate bi-atrial enlargement. Mild left ventricular hypertrophy. Mildly dilated aortic root, 3.8 cm. Thickened mitral valve with trivial regurgitation. Mild tricuspid regurgitation with mildly elevated right heart pressures, RVSP 36 mmHg. Thickened aortic valve. Trivial pulmonic insufficiency. Left ventricular diastolic dysfunction. 07/24 echo - Technically difficult echocardiogram. Dilated left ventricle (5.7 cm) with low normal systolic function. EF 50-55%. No regional wall motion abnormalities noted. Mild left atrial enlargement. Normal RV size and systolic function. Trivial mitral regurgitation. Mild tricuspid regurgitation. Mild to moderately elevated right heart pressures, RVSP 40 mmHg. Thickened aortic valve leaflets. ELAINE 2.0 cm (PK 13 mmHg, MN 8 mmHg) Left ventricular diastolic dysfunction, Grade II. Small pericardial effusion. Compared to previous echo 03/22, RVSP has increased ECHO: Echo complete W/ contrast Result Date: 10/23/2021 Left Ventricle: Left ventricle is mildly dilated. There is mild increased wall thickness/hypertrophy. Systolic function is normal with an ejection fraction of 55 %. Mitral Valve: There is trace regurgitation. There is no evidence of mitral valve stenosis. Tricuspid Valve: There is trace regurgitation. RVSP calculated at 28 mmHg. RVSP is based on RA pressure of 3 mmHg. ECHO: Echo complete W/O contrast Result Date: 10/24/2022 Left Ventricle: There is mild increased wall thickness/hypertrophy. Systolic function is normal with an ejection fraction of 55-60%. Right Atrium: Right atrium is mildly dilated. The right atrial area is 17.2 cm2. Mitral Valve: There is trace regurgitation. There is no evidence of mitral valve stenosis. Tricuspid Valve: There is mild regurgitation. There is no evidence of tricuspid valve stenosis. The right ventricular systolic pressure is moderately elevated. RVSP calculated at 42 mmHg. RVSP is based on RA pressure of 3 mmHg. There is moderate pulmonary hypertension. 10/26 echo Left Ventricle: There is moderate increased wall thickness/hypertrophy. Systolic function is normalwith an ejection fraction of 65-70%. Mitral Valve: There is trace regurgitation. There is no evidence of mitral valve stenosis. Tricuspid Valve: There is trace regurgitation. There is no evidence of tricuspid valve stenosis. RVSP calculated at 34 mmHg. RVSP is based on RA pressure of 3 mmHg. There is borderline elevated pulmonary hypertension. ASSESSMENT/PLAN/DISCUSSION Atrial Fibrillation: Paroxsymal atrial fibrillation with exam today suggest sinus rhythm. Continue eliquis 5 bid, dilt cd 120 bid. Overall low PAFib burden on Loop prior to battery . Prolonged events but asymptomatic. Continue NOACs indefintely. 2. Hypertension: controlled. I plan to continue current medications. No additional testing is required at this time. Follow echoes (LVH) 3. Hyperlipidemia: Managed per PCP. I did not order any further blood work. On statin. 4. Mitral Regurgitation: mild. BP control. Follow echoes. 5. Abn echo - SMITA. LVH, aortic sclerosis. BP control. Follow echoes. 6. BLE Edema: Stable. Continue Lasix. Wrapping legs. 7. Pulm HTN: mild to moderate, and stable overall around 35-40 mm. Follow serial echoes (RVSP). Treating DESTINY. 8. S/P Loop - battery . Will leave in Testing and records reviewed in [facility] Everywhere and other outside facilities, and are documented under CV database and testing. The note was completed using EMR. Every effort was made to ensure accuracy; however, inadvertent computerized heel seat trimmer errors may be present. Jered Celestin MD documented in this encounterM[facility] HospitalXcedex [id number] Evaluation note* Encounter Date Diagnosis Assessment Notes Treatment Notes Treatment Clinical Notes Oct, Bronchitis (ICD-10 - J40) Drink plenty fluids, get plenty of rest. Take the doxycycline and Medrol Dosepak as prescribed until gone. Take the benzonatate capsules as prescribed as needed for cough. Use the albuterol inhaler as prescribed as needed for cough or shortness of breath. Continue home medications as prescribed. Follow-up with your family physician if no improvement in 2 to 3 days Patient request prescription for Medrol Dosepak, patient verbalizes understanding that it will raise her blood sugar. Patient states she is aware of this however she feels she needs the steroids. 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) [facility] Other 03-31-2022 Evaluation note* Encounter Date Diagnosis Assessment Notes Treatment Notes Treatment Clinical Notes Jan, 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) Jan, 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) [facility] Other 03-02-2022 Evaluation note* Encounter Date Diagnosis Assessment Notes Treatment Notes Treatment Clinical Notes Jan, Pulmonary fibrosis (ICD-10 - J84.10) Jan, 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 Medical History Cryptogenic organizing pneumonia Hospitalization History COVID [facility] 09/05 021 [facility] Other Evaluation note* Diagnosis PAF (paroxysmal atrial fibrillation) ([facility])- Primary Atrial fibrillation Abnormal echocardiogram Nonspecific (abnormal) findings on radiological and other examination of other intrathoracic organs Essential hypertension Unspecified essential hypertension Nonrheumatic mitral valve regurgitation LVH (left ventricular hypertrophy) Cardiomegaly Pulmonary hypertension ([facility]) Other chronic pulmonary heart diseases S/P ablation of atrial fibrillation Other postprocedural status Healthcare maintenance Atrial enlargement, bilateral DESTINY (obstructive sleep apnea) Obstructive sleep apnea (adult) (pediatric) Bilateral leg edema Edema Hyperlipidemia, unspecified hyperlipidemia type 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 Abnormal ECG Nonspecific abnormal electrocardiogram (ECG) (EKG) History of radiofrequency ablation (RFA) for complex left atrial arrhythmia senior care (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 anticoagulants Long-term (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 anticoagulants [facility] Diagnosis Polyneuropathy Unspecified hereditary and idiopathic peripheral neuropathy [facility] Diagnosis Mixed hyperlipidemia [facility] Diagnosis Onychomycosis- Primary Dermatophytosis of nail 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 ([facility]) Pain in both feet Healed foot ulcer documented in this encounter [facility]* Diagnosis Flu-like symptoms- Primary Viral URI with cough [facility] Diagnosis Gouty arthropathy Gouty arthropathy, unspecified [facility] Diagnosis Polyneuropathy Unspecified hereditary and idiopathic peripheral neuropathy [facility] filedocumented in this [facility] filedocumented in this [facility]ocumented in this [facility]Not on filedocumented in this encounter [facility] filedocumented in this encounter [facility] on filedocumented in this encounter [facility] on filedocumented in this encounter [facility] Summary Purpose Family History No Family History Records FoundNo Family History Records FoundNo Family History Records FoundNo Family History Records FoundNo Family History Records FoundNo Family History Records FoundNo Family History Records Found Advance Directives No Advanced Directives Records FoundNo Advanced Directives Records FoundNo Advanced Directives Records FoundNo Advanced Directives Records FoundNo Advanced Directives Records FoundNo Advanced Directives Records FoundNo Advanced Directives Records Found Additional Source Comments INFORMATION SOURCE (unrecogn ized section and content) DATE CREATED AUTHOR 08/14/2018 [facility] DATE CREATED AUTHOR AUTHOR'S ORGANIZ ATION 01/13/2019 [facility] DATE CREATED AUTHOR AUTHOR'S ORGANIZ ATION 12/05/2022 [facility] DATE CREATED AUTHOR AUTHOR'S ORGANIZ ATION 05/16/2023 [facility] DATE CREATED AUTHOR AUTHOR'S ORGANIZ ATION 2023 [facility] DATE CREATED AUTHOR AUTHOR'S ORGANIZ ATION 01/24/2024 [facility] DATE CREATED AUTHOR AUTHOR'S ORGANIZ ATION 01/25/2024 [facility] REASON FOR VISIT (unrecogniz ed section and content) Reason Comments Follow-up Reason Comments Med Refill Reason Comments Cough Reason Comments Hypertension Hyperlipidemia Care Teams (unrecognized sec tion and content) Video Editing Intern Relationship Specialty Start Date End Date PapitoCari greggJacquiLUIS Alvarado-[facility] [address] [place] [address] PCP - General Internal Medicine 07/22/23 Video Editing Intern Relationship Specialty Start Date End Date PapitoCari greggJacquiLUIS Alvarado-[employer]NCIL[employer] [address] [place] [address] PCP - General Internal Medicine 07/22/23 Video Editing Intern Relationship Specialty Start Date End Date PapitoCari greggJacquiLUIS Alvarado-C[employer] COUNCIL[employer] [address] [place] [address] PCP - General Internal Medicine 07/22/23 Video Editing Intern Relationship Specialty Start Date End Date Unallocated, [facility] [address] [place] [address] PCP - General 04/02/23 Video Editing Intern Relationship Specialty Start Date End Date Unallocated, [facility] [address] [place] [address] PCP - General 04/02/23 Video Editing Intern Relationship Specialty Start Date End Date Cari Napoles, ELECTRIC FRYING PAN REPAIRER-CITY COUNCILMAN [address] [facility] [place] [address] PCP - General Internal Medicine 07/22/23 Video Editing Intern Relationship Specialty Start Date End Date Cari Napoles, ELECTRIC FRYING PAN REPAIRER-CITY COUNCILMAN [address] [facility] [place] [address] PCP - General Internal Medicine 07/22/23 Video Editing Intern Relationship Specialty Start Date End Date Cari Napoles, ELECTRIC FRYING PAN REPAIRER-CITY COUNCILMAN [address] [facility] [place] [address] PCP - General Internal Medicine 07/22/23 Video Editing Intern Relationship Specialty Start Date End Date Cari Napoles, ELECTRIC FRYING PAN REPAIRER-CITY COUNCILMAN [address] [facility] [place] [address] PCP - General Internal Medicine 07/22/23 FOR RECORDS PERTAINING TO PATIENTS WHO ARE OR HAVE BEEN ENROLLED IN A CHEMICAL DEPENDENCY/SUBSTANCEABUSE PROGRAM, SOME INFORMATION MAY BE OMITTED. This clinical summary was aggregated from multiple sources. Caution should be exercised in using it in the provision of clinical care. This summary normalizes information from multiple sources, and as a consequence, information in this document may materially change the coding, format and clinical context of patient data. In addition, data may be omitted in some cases. CLINICAL DECISIONS SHOULD BE BASED ON THE PRIMARY CLINICAL RECORDS. [facility] provides no warranty or guarantee of the accuracy or completeness of information in this document.
--- OUTSIDE RECORDS SUMMARY | 2024-03-04 06:39 | XMS_ITS | CCD ---
Author Organization [facility] Care Team Providers Care Tankerman Name Role Phone CHRISTIE ESTRADA Referring Unavailable RACHEL MAE Primary Care Unavailable CHRISTIE ESTRADA Admitting Unavailable CHRISITE ESTRADA Attending Unavailable KITTY SINGH Consulting Unavailable AKBANITITO Consulting Unavailable MAI CHOU Consulting Unavailable Danyel Angelo Unavailable LISA, DR RANDHAWA Admitting Unavailable MISC, DR BACK Primary Care Unavailable MONTICELLO, DR GIA Ralph Consulting Unavailable CHABAN, DR [...] Unavailable MISC, DR BACK Primary Care Unavailable MONTICELLO, DR GIA Ralph Consulting Unavailable MISC, DR BACK Consulting Unavailable RACHEL MAE Primary Care Unavailable RUEL WONG Admitting Unavailable RUEL WONG Attending Unavailable MARYCRUZ Barnett Admitting Unavailable KUNS, CARI R Primary Care Unavailable MARYCRUZ Barnett Attending Unavailable KUNS, CARI R Primary Care Unavailable Dolce, Raimro R Admitting Unavailable Dolce, Ramiro R Attending Unavailable MARYCRUZ Barnett Admitting Unavailable MARYCRUZ Barnett Attending Unavailable RACHEL MAE Primary Care Unavailable MARYCRUZ Barnett Attending Unavailable MARYCRUZ Barnett Admitting Unavailable Klaege, Nery Primary Care Unavailable KUNS, CARI R Primary Care Unavailable Dolce, Ramiro R Admitting Unavailable Dolce, Ramiro R Attending Unavailable Klaedustin, Nery Attending Unavailable Klaege, Nrey Primary Care Unavailable MERLENE, RACHEL Mackenzie Primary [...] Barnett Admitting Unavailable Evita Baker Unavailable Shirin BEHAVIORAL INTERVENTION SPECIALIST-NREMTCari Givens Primary Care Provider Unallocated, Noms Provider Primary Care Provider SILVA SANDERS Attending Unavailable SILVA SANDERS Attending Unavailable CARI NAPOLES Attending Unavailable CARI NAPOLES Referring Unavailable CARI NAPOLES Primary Care Unavailable CARI NAPOLES Attending Unavailable CARI NAPOLES Referring Unavailable SHIRIN, CARI ALVARADO Primary Care Unavailable JERED CELESTIN Attending Unavailable CARI NAPOLES Referring Unavailable CARI NAPOLES Primary Care Unavailable CARI NAPOLES Referring Unavailable SHIRIN, CARI ALVARADO Primary Care Unavailable JERED CELESTIN Referring Unavailable CARI NAPOLES Primary Care Unavailable Medications Current Medications Medication Drug Class(es) Dates Sig (Normalized) Sig (Original) [id number] 200 actuat albuterol 0.09 mg/actuat metered dose [...] oral solution (5 sources) alpha-Adrenergic Agonist, Uncompetitive U-csefiq-S-asparta te Receptor Antagonist, Sigma-1 Agonist Start: 01-09-2024 [...] scanning reader (FREESTYLE GLO 14 DAY READER) [facility] Glo 14 Day [place] 0 Active flash glucose sensor (FREESTYLE GLO [...] 04-19-2016 01-28-2023 Episodic Other aftercare (2 sources) snf (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 insulin; Translations: [SENIOR CARE CURRENT USE OF INSULIN] Onset: 12-05-2022 Episodic Other aftercare (18 sources) Long-term current use of anticoagulant; Translations: [venetian blind tape cutter (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 anticoagulants] Onset: 07-14-2018 11-01-2023 Episodic Other aftercare (6 sources) Long-term current use of insulin; Translations: [venetian blind tape cutter (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 insulin] Onset: 10-22-2019 Resolved: 01-28-2023 01-28-2023 Episodic Other aftercare (1 source) snf (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 anticoagulants; Translations: [snf (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 anticoagulants] Onset: 01-28-2023 Episodic [...] Interpretation Reference Range Facility COMPREHENSIVE METABOLIC PANE [facility] 01-23-2024 Albumin [Mass/Vol] 4.1 g/dL Normal 3.2-5.3 [facility] Comment on above: Performed By: #### Lawson BOUCHER, 27673-5 #### [facility] ([id number]) [address], [address] [place] [address] ALP [Catalytic activity/Vol] 55 U/L Normal 39-130 [facility] Comment on above: Performed By: #### Lawson BOUCHER, 84580-1 #### [facility] ([id number]) [address], [address] [place] [address] ALT [Catalytic activity/Vol] 16 U/L Normal 0-31 [facility] Comment on above: Performed By: #### Lawson BOUCHER, 32897-8 #### [facility] ([id number]) [address], [address] [place] [address] Anion gap [Moles/Vol] 10 mmol/L Normal 5-15 [facility] Comment on above: Performed By: #### Lawson BOUCHER, 63453-2 #### [facility] ([id number]) [address], [address] [place] [address] AST [Catalytic activity/Vol] 20 U/L Normal 0-41 [facility] Comment on above: Performed By: #### Lawson BOUCHER, 94914-8 #### [facility] ([id number]) [address], [address] [place] [address] Bilirubin [Mass/Vol] 1.0 mg/dL Normal 0.3-1.2 [facility] Comment on above: Performed By: #### Lawson BOUCHER 48761-3 #### [facility] ([id number]) [address], [address] [place] [address] Calcium [Mass/Vol] 9.1 mg/dL Normal 8.5-10.5 [facility] Comment on above: Performed By: #### Lawson BOUCHER 89873-9 #### [facility] ([id number]) [address], [address] [place] [address] Chloride [Moles/Vol] 98 mmol/L Normal 98-109 [facility] Comment on above: Performed By: #### Lawson BOUCHER, 21808-7 #### [facility] ([id number]) [address], [address] [place] [address] CO2 [Moles/Vol] 31 mmol/L Normal 22-32 [facility] Comment on above: Performed By: #### Lawson BOUCHER, 13313-7 #### [facility] ([id number]) [address], [address] [place] [address] Creatinine [Mass/Vol] 1.37 mg/dL High 0.40-1.00 [facility] Comment on above: Result Comment: METH OD TRACEABLE TO IDMS STANDARD Performed By: #### Lawson BOUCHER, 89726-8 #### [facility] ([id number]) [address] [place] [address] GFR/1.73 sq M.predicted among non-blacks MDRD (S/P/Bld) [Vol rate/Area] 38 mL/min/{1.73_m2} Low >[address] [facility] Comment on above: Result Comment: Reported eGFR is based on the CKD-EPI 2020 equation that does not use a race coefficient. Performed By: #### Lawson BOUCHER, 05136-9 #### [facility] ([id number]) [address], [address] [place] [address] Glucose [Mass/Vol] 179 mg/dL High 65-99 [facility] Comment on above: Performed By: #### Lawson BOUCHER 06346-6 #### [facility] ([id number]) [address], [address] [place] [address] Potassium [Moles/Vol] 4.0 mmol/L Normal 3.5-5.0 [facility] Comment on above: Performed By: #### Lawson BOUCHER, 76016-2 #### [facility] ([id number]) [address], [address] [place] [address] Protein [Mass/Vol] 7.3 g/dL Normal 6.0-8.0 [facility] Comment on above: Performed By: #### Lawson BOUCHER, 16518-4 #### [facility] ([id number]) [address], [address] [place] [address] Sodium [Moles/Vol] 139 mmol/L Normal 134-146 [facility] Comment on above: Performed By: #### Lawson BOUCHER, 26505-3 #### [facility] ([id number]) [address], [address] [place] [address] Urea nitrogen [Mass/Vol] 34 mg/dL High 5-27 [facility] Comment on above: Performed By: #### Lawson BOUCHER, 01219-8 #### [facility] ([id number]) [address], [address] [place] [address] Comprehensive metabolic pane jenifer 01-23-2024 Albumin [Mass/Vol] 4.1 g/dL 3.2 - 5.3 g/dL [facility] ALP [Catalytic activity/Vol] 55 U/L 39 - 130 U/L [facility] ALT No additional P-5'-P [Catalytic activity/Vol] 16 U/L 0 - 31 U/L [facility] Anion gap [Moles/Vol] 10 mmol/L 5 - 15 mmol/L [facility] AST [Catalytic activity/Vol] 20 U/L 0 - 41 U/L [facility] Bilirubin [Mass/Vol] 1.0 mg/dL 0.3 - 1.2 mg/dL [facility] Calcium [Mass/Vol] 9.1 mg/dL 8.5 - 10. 5 mg/dL [facility] Chloride [Moles/Vol] 98 mmol/L 98 - 109 mmol/L [facility] CO2 [Moles/Vol] 31 mmol/L 22 - 32 mmol/L [facility] Creatinine [Mass/Vol] 1.37 mg/dL High 0.40 - 1.00 mg/dL [facility] Comment on above: METHOD TRACEABLE TO [facility] STANDARD eGFR (CKD-EPI)non-race dependent 38 Low - PINF [facility] Comment on above: Reported eGFR is based on the CKD-EPI 2020 equation that does not use a race coefficient. Glucose [Mass/Vol] 179 mg/dL High 65 - 99 mg/dL [facility] Potassium [Moles/Vol] 4.0 mmol/L 3.5 - 5.0 mmol/L [facility] Protein [Mass/Vol] 7.3 g/dL 6.0 - 8.0 g/dL [facility] Sodium [Moles/Vol] 139 mmol/L 134 - 146 mmol/L [facility] Urea nitrogen [Mass/Vol] 34 mg/dL High 5 - 27 mg/dL [facility] Lipid 1996 panelon Cholesterol [Mass/Vol] 116 mg/dL Low 150 - 200 mg/dL [facility] Cholesterol in HDL [Mass/Vol] 36 mg/dL Low 39 - PINF mg/dL [facility] Comment on above: HDL <40 mg/dL - High Risk HDL > or = 40mg/dL- Desirable HDL >60 mg/dL - Negative Risk Cholesterol in LDL [Mass/Vol] 50 mg/dL NINF - 130 mg/dL [facility] Comment on above: LDL <100 mg/dL - Desirable LDL >160 mg/dL - High Risk Cholesterol in VLDL [Mass/Vol] 30 mg/dL 0 - 30 mg/dL [facility] Cholesterol.total/ Cholesterol in HDL [Mass ratio] 3.2 {ratio} 1.0 - 5.0 [facility] Triglyceride [Mass/Vol] 148 mg/dL 27 - 150 mg/dL [facility] Cholesterol [Mass/Vol] 116 mg/dL Low 150-200 [facility] Comment on above: Performed By: #### Lawson BOUCHER, 73493-2 #### [facility] ([id number]) [address] [place] [address] Cholesterol in HDL [Mass/Vol] 36 mg/dL Low >39 [facility] Comment on above: Result Comment: HDL <40 mg/dL - High Risk HDL > or = 40mg/dL- Desirable HDL >60 mg/dL - Negative Risk Performed By: #### Lawson BOUCHER, 10925-8 #### [facility] ([id number]) [facility] [address] [place] [address] Cholesterol in LDL [Mass/Vol] 50 mg/dL Normal <130 [facility] Comment on above: Result Comment: LDL <100 mg/dL - Desirable LDL >160 mg/dL - High Risk Performed By: #### C CITLALY, 44430-9 #### [facility] ([id number]) [address], [address] [place] [address] Cholesterol in VLDL [Mass/Vol] 30 mg/dL Normal 0-30 [facility] Comment on above: Performed By: #### Lawson BOUCHER, 04420-7 #### [facility] ([id number]) [address], [address] [place] [address] CHOLESTEROL:HDL 3.2 Normal 1.0-5.0 [facility] Comment on above: Performed By: #### Lawson BOUCHER, 33890-6 #### [facility] ([id number]) [address], [address] [place] [address] Triglyceride [Mass/Vol] 148 mg/dL Normal 27-150 [facility] Comment on above: Performed By: #### Lawson BOUCHER, 75659-7 #### [facility] ([id number]) [address], [address] [place] [address] No Panel Informationon 01-22 Interpretation and review of laboratory results Abnormal [facility] POCT Influenza A/Influenza B /SARS-COV-2 VeritorOrdered By: Dulce Maria Boykin on 01-09-2024 External Poct Influenza A Antigen Negative [facility] External Poct Influenza B Antigen Negative [facility] SARS-CoV-2 (COVID-19) Ag IA.rapid Ql (Resp) [facility] Coding Summaryon 04-09-2023 Coding Summary HTMLBase 64 WuvewdgoFXw1vSa+PGhl YWQ+CV4JPLKrN84sfHDv oJ6iO8ZNVAsYCceyDZWS QSuVEbEwnjNjWD5vgOCr ZXJu IC8+HK9lTOJkXashiXLr n2H6mJO2J00ifl6dCQei sTW7YMYrExTsdokae1br yKx7RLjjOmcvVtXb XTZtaS04RUD4tI16Tr06 tUIzoXOud2lhiWb9OqKw YBNuONO4mGvdMWbtl0Ur FUZwK59wePXqa6J7 IGNvbGxhcHNlOyBlbXB0 lD1bZSmcyqmxg6rgosug Hpa0sm59yOSey1O9qZD8 B5DfisA9UMTfjTSv VxnmcJRNsW4ciwwvu1qr mogrWgPvGIXtUFl0VOr1 TLDifOvvFoSiWT05WIW0 VVThybMwX5BnULMn wEtqCgN0g1Q6Aa0PF2TO KqfqN6RISAZQMZggkFY+ KX27cv61Q1KjTozpJbl0 XIElQPT8eKU2aV6s COFkOXeij6O2lXE1X3Jj crNqjh8dq7crJRSdJLqy K82xfFIqe5K3UYRedPH4 CWIzdFdqMsVziJ41 Oyc+RFVdiNrtf1ShNdxq f4rth6jbdKx1RfqtZPSs klCrbYvsPGM2w0QdIj6w KYWbvSQ6bBW0jE1q BgGcIoU1VNbeN587YpGp wUNlZaccF27pI0EwzLO+ RTXhUqm9XSKxqXqiSN8e X0WiLPFtdmiylWFo vVmvHB3rOKVkajgaSWYf rV1wXIIlR5g9RySqGyO0 MWwhQ9LpTLNdnkiqSa85 bO8bFrFfGsQ4NGox Y9KgwxJ7XPNrfWRnCEcu QTA5T27qm2L1ZFSpKOKf MBY8lOH1yW3lzVvebdnr bGVmdDsgdmVydGlj BLsnAKvbB090TICnyRfr PkNvZGluZyBEYXRlOiAg MDYvMDYvMjAyMzwvdGQ+ URHbNDQ7jVbxGMQm jTHlUXsdTg7apDdbyPwr YY8qHVDauqizTZMmjA7o XXGasMYshDqnSW8sCNQi fjndj898MlYmKMY0 PEPyhIWeF6LzvP1uMpZi FKOuUDGzI7EeoJQoJSsn L725JGlyEgD4SSInbzWt I8HcPLSivXigIuJ9 k5C6Kp0Cz4DywimbF7Dl qENbLuUoPmvwETr0U8Qy PjwvdHI+BM71JIZxAZ90 VVo6OXM7sUdwZMoz ZWNlU9ByvN1uPzYfNTPd ZGRkOyc+PHRhYmxlIHdp ZHRoPScxMDAlJyBzdHls WP0xAl8hPXEoNRIh cBnnhBUkGkZgl2omEQYd TLdpQT8tnSviP3OscCK8 MBFqc6e2Cs98Q00bG7Ov dXA+YLKbxFQ9eLX4 wC9xGpLwPrO7CYaiU859 QqBubDFdHpdtg6tzz6zj qYk7RxL2UTScrzOqtQeb NKI9s7RmFi06S81y IHdpZHRoPSIxNSUiIHZh sIeknz7urR7sSw5+PGNv bZP3yIR2yW4cHaSaBtT0 ZWryB216ZfKcaWBl Spesf0jcz7qceRh6XwNc VFDuasChqYptWSC9u4Am Ot45F2CrcPess2CnRlm3 ez96jPWiw9F6iBN1 N0SnIYXzlygclBBmdGkw JJ0dQLNntjpuAWEseP0i EHQrI5v8IpUyQtP1QCae K0DpdtK7NBTlyGJk HYJdtEHAtS5nsvfwc7vv mabpEkEjPEKoWYg3OEj5 UOXqmTnoYoPyOOL6JnL8 FAV1yZMvzN2xkMow mcdgpM9vCxi+UBT6yXUh tQKSYP2vZzmusSZ+PHRk WAT4uXdlKCcdPOJdlU8p JSEoV8h9LhLkMkU1 LUqrS4MqngC5KKIxsNEq JBSvjFFWhB0wlwcof3tz yeysXnAfNFDfLMi2AJi5 LWFsaWduOiBsZWZ0 MyP0BEI6rSCldD9oiWdh yalkgO2yRtc+QmlydGgg FVD4YBs0Z0CdQzc1PUIn tKprEX8rzTZvUHro Cp1miPimzLefOY9sSKCe aqdpb827VfNiw5tqWQXm lUNfTQenSUE2R50kw3Z0 FJFvCQYsAAD4kBZ9 pL5oyOwzexvpbRPgwAqp baTrwOisYBoyDDgyH661 KPZxwLqwJsEsXAk4D1Ei Nht1VIUhxUbqHL6d rITzOBpiVb9jgAprmKay XC4gPDTfiphln219TkCz e7neWFYwxJQcGFyqDMN5 D29bv3J6NGEzJHVt SMS1uVY6zB8fgSwocwta bGVmdDsgdmVydGljYWwt XVhcG330WYEzePhhVaGz mRf9I3LyNlp4FVVc bKewBM4sdMStGHjeTz3n jLysnCvjDI6bKWNbptay p603CdHgb5umZJCoeEYa GCypNZG4S77mx6Y3 UXXeRINtUSS8oSI6oH9b bGlnbjogbGVmdDsgdmVy qHldYPfhYZwgS403CPEm cDsnPlBhdGllbnQg UDwqBIj2T6TbHplvrKI+ LQ02ELUgRM50oMAgvNDs c9gwaOk3KuPkQTCiRGB5 iTtvLYbjp9ZeHYMd F53lgNMto3K3OZMfnZrs mLFsAyQnvHV2fZ4lSCzw qiwkb3qzjqxuJvite9ay nh79cE73B42lQBdh ZHRoPSIzMCUiIHZhbGln wb5fgT1fLo2+PGNvbCB3 wFS4pW1uWTNqLlR0HCop X668YnRdfXDaFgqv b0thm4mqnAb0NgL2MQVx wbYelMefEOB9e9LrWk45 P61dQOcrNJLdFFChQLDq DJUjpTsutf7cuD6u Ii8+SHJdyJK7hJI5dT6t JuDjKxU2DSgcP013UvGg eMSrTvinL61pB4CohNC+ BBAxOfl1VEXxeAjt NB3nrATzWSozBm0gCCE9 UmEdGyYnURvmV8ThDURs vymlxedfgDH8OTHkEDSu rK23Tn2paHbkVHYu yLNDeV7vaznsc8rpdglb HfPzDIOlCCa6RWt1HXMa oIykNrMbABG4IiL6EIA8 hOVbsO9xnJeeoagy wN0nR2UbWQVugjdlLp92 qY9xVrVjMxR5LRphHgh+ LC2DPnNZO2aqHJeCTD8n TTwvdGQ+PHRkIHN0 gQfyEZwrUNTduA3hRCPn T9p1YwJjAgQ8WAgvJ1Qg JBYimquiZp45oF6kZfWi OmP5NXlfU9RaoxW8 PKRhdAAkTWnlSLF2F00i g7J5LYGlXOApDSY1gTH0 vU5krSquzvpbzOVanBdb dmVydGljYWwtYWxp H964WNRdxCciLcKuHfE9 MuI9Hns0W6DcMdl7BRDa zQcwYH3ktOStMNjjLh0i iKpolNozNL0fRZXl bfiuPSIqeT1sTXKsaPMd iCboNU5sVESbjaevs807 WlQoMLU5VDOcdZRyB5Hr cM1oPsWmDUEnCOZo B8WouQMfNLfbL752EQyk ZqI7JTIewcEqU4MfPCTo fVdrEeY1c0B5Wv24QVLA ZWFyczwvdGQ+PHRk MFG9kBnjVObrSRTvjD1d SLUaG8n8IhJiBcQ8WBqv C6OzCUIxhjcjRe22eK9g GuKfCtD7QVtbE5Dq rwY4QNHnqXStIZxqMLT6 T86os5S2EQGdSNSoBUZ4 cKM2uJ0xpSezptdihCYb dDsgdmVydGljYWwt WHsiS898OTRhdTtwWdLV TUFMRTwvdGQ+PHRkIHN0 eMxcMFqfQLRjgJ7pVEIn X1z4YrCtWcO3OVrr L1GqBSEndjntLu53xB4t UzLcVvZ2XJggY1NocaK0 DZQkhAHgAHoxAKY2Y15v g4N0LMOjHZGjKJB5 wCG7bX7ucOcltbrepHBm dDsgdmVydGljYWwtYWxp R783UTMoaKtuHj6JJJ70 PT81D2KxXlpsxLXg bGU+PHRhYmxlIHdpZHRo OGezLXRoXwOdqQqgTP3y Qn5tYDOmOAHplKetbEVz KaPjb9scGWUpQCre YR3itPqcQ7JhtUX5YPRp t1l8Po31I48fJ2DolJG+ GLHuvCR2uRU0rL2qRlHv IeG9LJncZ991DaUf mJKbSgqif4ijv9ydhPd2 IjMwJSIgdmFsaWduPSJ0 k0FuAn44G31pVZwgAIAv PSIyMCUiIHZhbGln ax6szC9uGt3+PGNvbCB3 nPF4wG1cFkThUcC8KWwx Q535QjRqtRWjHpiwT35r S4KccYH+PHRyPjx0 KBXrxZwwMO1zmSHmAAsz Mj0pEXO8BeQnGrZgXDlk Z9VfNWJafwfmdfzgvTZ9 FXYnAWPbqD40Er3w fDwzLo9xAMQnMGP1VPQb jGQjO6ZiuA4iMiHjUYEp XIDiQ3XmbESrZSriR843 PQhiRwF4PNLafeEc B2YwEHXuiSfnNtR9d1F0 Jn7TbYqdnNGnVH7jCrFw HBh2H3DhIxa0PLUicYsl YN3rrCTrWRsuPw8y mZweoTlgJL8uHOMnvzwl c230ZsZis8tnXYPtbBIw AWyjUXX9H51oo7T9CPZu FNIfBIH7qDT0sG6t bGlnbjogbGVmdDsgdmVy aFsgVYdmAJwyS437TXGu hJzqUuPWUvj7F7SmNuf7 XLWhfBeqVV5flKYc HHquLo5kyFerpYxuTL3y PBSnfxjlf551DvSrh8pv UHHbqMRkQOwlHIW8P03k h3X3VOEdJKCeNIF7 aOC3gI7ecMppszqesFQn dDsgdmVydGljYWwtYWxp V253SLWaoRsuJu8BQta1 E5OpJqf0ACOscFyu HP9tiBJdURgaZp6fpVxe sJhxXL2cKVZibqinb413 XjRwn9lcJTKzzNIaVNzp COM6J51rl0H9VILv PZQaYJG0zKF3oM0egZpp bjogbGVmdDsgdmVydGlj JXzsZHmuJ993RINpvXcl PlBheWVyOjwvdGQ+ XR79xg07G4FaSlxfXfn4 SSRfVSU0sMA2gR6gGMZs EHywt9A5tXL4S8HnkfCg qi2km1ekWPQbUJwl Y29 (more content not included)... [facility] Coding Summaryon 03-26-2023 Coding Summary HTMLBase 64 LydoowebBEr6aYb+PGhl YWQ+VB9FFYZoX72bpKYq yZ1pE8ANMMgJGywsBYYC LLaKWjAxhpFgRJ3nkIPg ZXJu IC8+OE3qHITcQcaufMGw m1S2zWM0K53kgv0xPDxt nXS5WRYuOvWowtlhl2ib yHg8JXmiQfyyTsSk SMFkoV73BDO3hI70Bb34 xPQjqQGay5isxIt5WvBh YMFzQYD9lPrdEJfhc8Vy IZAyV97osGCdc2I3 IGNvbGxhcHNlOyBlbXB0 sP7rZIqkawugn5hadxvz Ljz7hz25vFEam9X2iIG1 W4TmoqF4ZDQzbJLg XijfiBQWfD8kfdebz3tv fynfGfIxCLMwMTg5FZf2 RJLliGmeSsTkDB53ZRF7 WPJoujSnQ4ZdHOHs bCjrZhG0w9L7Tg7AT3FN PutvM6HBOKHJJIrwkZZ+ VF47mx11Z5CsEnqpHiq4 CAQgYZX3zQP1vW3s HEWyABdxh7M8kCC9O0Gk acWjlf2qx6jtWROjJAid F39omSFmw1F2GIVqpZU1 DQXugTmlXyUppV42 Oyc+UZRmnXjxd8SoNsza z2rgr2ondGb3XvnwFOFv pkAaeJtrDJW3r4CsLt6i EKOsoDL3rJT5tT6m MkVgFcZ6BBacS243EuVz xFLhYhgaW00vJ6UkpIZ+ JDAgWzg8CXOjaWxvLD8u Y6RiBTRanoiwlIHb sSxrYO4bVIImjkhpCXEj nA5zQMBsS5e8JwFjOiT0 QYxdU4LvUNFpyqpmUx03 oE4mRkHjRrP1JFys O5WhjfP6MCRvwIJqJStu ZPF3I26rq1I0YORnGWQk GHV9rBU1mU3mhYvlynzm bGVmdDsgdmVydGlj GMyjDEuvQ325EVMfrMds PkNvZGluZyBEYXRlOiAg MDUvMjMvMjAyMzwvdGQ+ ZWGfOPC1vRylPFXp dYYfTQwpOk6nvDpafLgg DT7uGJSowhkqGNLjlF2d LSGwrMKzwJirWR5nAFSa jtyez971TfNhPKP6 EEEsdPIrP7XhtH7xZuBi KQWqWYXkF9QttWWqDEzu O547BQkxEqO5WCGfizUv O0RfERCblWexOzS2 u8F7Ny1Oz0YpnujjL6As mRZkLdExKpdpXMm8B6Da PjwvdHI+JW00ZAPfVH63 BGv1QEQ8bIccWJet JRUcA8GgmM6xIqMvDHKa ZGRkOyc+PHRhYmxlIHdp ZHRoPScxMDAlJyBzdHls HJ4bNh6kHAWcXOUd vPznqKBbLxUaf8ssTIPx RGqsJH4diQtvJ6ZjlFV2 IVNts3c4Aj03P82kA4Jv dXA+AWUxfQD0dYN8 sO9jOfWmUmI4TUpfI192 ApSlzZNaAaxjv6wjv6uy zOt2KiK0MQFebjVgeUhw DUX3v9CtVk40I35z IHdpZHRoPSIxNSUiIHZh vKxvof2paK7qTz5+PGNv tSC5lEG6bN8dLvAmDnA7 WLvbH931XcPcqDOa Tplnm6flv1wqmFh4ItDe OZOvmeYckZnmYAT9c3Hu Pa79V1XibXcbu3CrJlm9 gx49vTJpr9D5eJR9 Z6XxLBCdbrxvaDMznCut HH3aWBQledgnUYOigG3g WMDoH2c3UsOtHhU9SMlu J4VxbuQ4ITXyeOJm YJFltTPXbS3wcwcfp5lt qsxtFdRoLEGqPJa4WVk6 THVndWtaQbMqACB4JzB3 DWS4cCRnuB5jdNia jlyxzT7fFjj+MGO0hMZa gTZMCT4aWkaqsGD+PHRk PNV6bWleVHtzTVFwhO5c UITsE2o2AvCqKrA3 PLbrC8VxvyP0KYWaqAEw ICVfbGUTuC7zgcjhc8kb azmnFvMzPWYvKNy4TFg8 LWFsaWduOiBsZWZ0 YkF6NHS5kMWgtJ5ooZvh wvtgjM3bEhq+QmlydGgg MMC3UCt6V7DfXvt7MHGg vVfkFS5pdAMoRTfz Na4vxCctdNmsIM0fBFCx xuzcx702OaAgb3pfSRGs oWCkUGgeTBI7F47nu5T8 BKEdKASxOKK1hUG4 pL4dbEwlhrtayPZdrBhk nrCqnCrcBDogTFpeT248 FPKqqOggPdHtUEv5J7Tp Vhr3YNNbuRfcMZ3l cWIyNGmrAl8bdWwfjCre TV9yOWRamzthr810SuRv l0gkKGAnfJObMCcdQBL1 P97lk5W9URWrEWBe BWL0pBC3oZ6zsDnwdlzu bGVmdDsgdmVydGljYWwt SLddR387HIProXhjUxYe kYh8U9ZfSop9DMQh kNdbFA4veGTvNKexJn1o kUmqbNblPM4aYCHydhth q837NnZzz9ktDCJxoOWr VXpiJHE6X35xq2U0 NZPsWJQmUCR0xPX2aL3r bGlnbjogbGVmdDsgdmVy cHkuQZzoUWlhF657EKNk cDsnPlBhdGllbnQg CNmcIKy5X3SrVquyrSK+ OX73LCItIN81iYUwpNEh h7qyuOn4OgIkPCRwPVL7 xPrlYTdzm9VuXJWy V22xtBTxv3C8HBMprGzd zDZuAjIgmKH5rQ8nHYps edeuo2bxjhmlPzvoi8ol kn70tJ21D26rPDql ZHRoPSIzMCUiIHZhbGln ty3yhZ7dGi9+PGNvbCB3 qUM9eE0qUGSdOpN7AEbe K931AsHgkPDiLhne a5zwz8yxxXw4QhI5LEDa lhXbgEllGBG6f2YcCm28 I09zNEqnQAXpQEChLLCr YKOhoXlssi2idJ6h Ii8+NOMeqRJ8yJM0wE7h EhGpVmU9VMzjN033KeFt dCJfGjflC99pN7OcjDO+ GWPxVfq9XHAfdJkn NV8yaNAfRMqsCy6uSEP1 GfOyYpLpNGkfD2GwSIQg kpakpuasdTB3BBJpXDJh eI35Yn7bnOhaQSQf nRAFyJ2nvirnz1yaorky DdPcWTUmSCs3ALd3YUBq mYpgPuSkVOA3PcA1RID1 vRQqxE6ilQopivpi kS4aC1CuMYYyinujKk58 jI3zPdBwJeL0FOjxOyg+ LZ7LVfJFQ8xtAQlDCQ8g TTwvdGQ+PHRkIHN0 pLifOFawAONiuD4rDVAb M0a3ZoJjHwX2LOhyW0Rc EEYjbipdDv76yD8nQaTv XxO3VBhvZ8MzufC3 PEDpfKRwZUncABD1E19u t8S4MYTmWRHjMLS0rVY5 lV7qpDhsnryclYUseSxh dmVydGljYWwtYWxp P913SZPlpCbzMmMvMdU9 IoQ6Hse3P1PoHgf2URLx gXytKQ0twCJtFUeoSn7z vKwarQvjRA1cCIBg mborIKLnqL1mQZYvmJPz bSezSH2eXMTcndlnz111 GuVfVSA6YBNodIDqO8Vo rH3yCqWwDIJgIRXm J7QdiKCrNRuiO496MMhu CkW7RWOisjAlP2GbZFGv zHbhFrR5r1R1Ny47KQCX ZWFyczwvdGQ+PHRk LXY1uBlsRIjxPKAkzC6q YSTdW6z5TfObHfN0HVah K4WiWFQxycbxKg04yB1c JvZfXfZ8VQqaW8St rhL0WRJthSFtPTuvQDQ1 C16ox1L6GQQwIBHeBEE4 tVJ1uP9ytWndzvyqdBPv dDsgdmVydGljYWwt HNhmU274EUPxhHkqAhVK TUFMRTwvdGQ+PHRkIHN0 qXufMSmgFLJqkS0kWZZo R8w3DgTgPfV5JLdv Q3YkVXCswikeXr71hG2p FoGoCnM4REakD0MitxN5 RYGmyGOwHWuuKPZ3K21y v8Y9XOFoHCAjMZG4 hKM7jC2jjNuuykhazLNh dDsgdmVydGljYWwtYWxp N638GVEyhQiyRm3EFV24 CH64V7XvMhjzuEUz bGU+PHRhYmxlIHdpZHRo UTurQIYtItHweKqpMS5n Vk8aBZVfGKHgjBtmtXPm LcNdm3jxNSMyDVpg JF7scCjwI3PzuRR8GSXe u6x8Qw34A51bR1MuoAH+ UOCjmAU7oAQ3tU7pYpZp WlB0VDsgY960VnYb lQSkSxkfc8yhn8shqWb0 IjMwJSIgdmFsaWduPSJ0 o8BjAa31X09cNNkyGDEq PSIyMCUiIHZhbGln pe2woI4kVu6+PGNvbCB3 mZB4uJ6nTsJeYoQ0TVpu K351UvTlvSUhMuitQ39x I4BvtET+PHRyPjx0 XPLykSnpID1maSFhMBqe Lt8nZXQ3HvIuQoSqXJiw X4JhSWTnodqqydjlqDN6 EIXdPVTbuV27Ie8z fFgxWd4zRMRxFUX6ZQQy hKHnG1HipL1jAfRmGPOc PDHkI6UfzYEhVUamX851 XFfqVxF0ZLNkdhOw I4VfAWGufWuvEcY4y2W5 Rc3XpUjuiLLrGD7tTrSx JLu9A5IhDij2DGQbdSgy JA6saFKwJUjkCl7w lOhklOqnIE9eXLIcfoko t081KgFgp1chRUVgeUAp KAbmDYY0S01dt1K4JXRn BHTgCZV2tSJ3hR8a bGlnbjogbGVmdDsgdmVy iShjXWdjYCddQ600OODr pGhmSfXFVtp3H1ZzJji6 HDHovYfsMY4xwXXo ZTdsZt4wdHqfiWyyIA8c JDFnpjpjw025XjRqe3fc MADebENmDNnkBDB8J96r k9F9IWGtGEEkRNO8 pJP5cH5ppVczstxtjJCm dDsgdmVydGljYWwtYWxp Y561QJTayPkjOh3IAur2 J6KmXma1OKTugMul TC5dlMVbXYkfMk2ryGro uLnkPL4xXHOpyysvl674 AxAdf7svAFSnrGGgTEbo QIR1I72af4T3NJHr ATTiRHW5tRM2wM6vsYtx bjogbGVmdDsgdmVydGlj LNzwPKewL045QFCgyYoq PlBheWVyOjwvdGQ+ BV44th79H4HsMgitXdp6 JYTzXIJ7jNL9aC3jFQQn QMxns3H9wTU9G7CnntSb bi4oa7iyNFSvRBfy Y29 (more content not included)... [facility] Coding Summaryon 03-22-2023 Coding Summary HTMLBase 64 CwoluutaCUc3zPu+PGhl YWQ+SP7XKVBwJ52mqALc yX9LS6qQAF4OLQQMLTAL IH9CVW7zlRK1DYlnH5Pg biAv MypdmCUqPC50GSo3NGT3 oUooFMirmX4lmNRiJ9f8 ZsWiMV25hY11KTznXAXm OvL2ChExwxjefFJx S7zvVsGceEZxVmk+PHRh YmxlIHdpZHRoPScxMDAl WnXemXvvGR3eSj8hIHLr LWNvbGxhcHNlOiBj c3iwIRLlFUfiYI3ieXej C4PqqQW0CRFqq7k4Cr34 dHI+XYWfALL7wMauSKcd i498ZfOze8vhPQL0 qKGtXRilHCM1B15vo1F0 LEJkUADnTJX6rYB3cQ4t mUhovxbfH7DoqZOdBzG5 FGA7uTLibI3ikIok mvpyfY7uDgv+Q65GKQ1T XFLMWH9YPlm7O4RpDqhd dHI+PC66OKTrQK97hFXh wVQsn3cosTa4OjUj QFPnXYA4hXmwDOjad4Qp YBUxJ22ypMDov5E0MCZe tTwbdLPfMdZvhUB0dU6f MPzqsyjsh9kugjdl Asfty0vmdp15vY39Z05o DTapYSSaDRU0HHDcGEQd sYfgdd0atN8xIf0+IDxj u8lft5wgnUz0DfNj LYMrliFfaPvkBWB4p1Bo Gf70X6JvsLsht4WoAeq3 bp96fMVlj7P4pFV6XEnz IJBroC8oRGuiOnS9 KISyGyGufA47pSAcLPyz Pe7lxThoaAeaIQ6nQGQv tabkEUKhuC1uVKSkjIIg jWfmTF8qZUUcxcpj v731VkAxPPM5PKLknYIj N6XqfN3mElMgQZDsXDQn Y4NhhEKoHPfkG577KUnc PaY2DIEvrqByE5Gr BCPmjKgrNdD9m0E0Fw0N o7DtskdeJSH4YVfuRBD4 BrL9FkTyZsB8L2CtOox5 QUEfeAixHJ8dM6Rx LZGkjxsmfqlcnCF0GJQg ZHQxoA65mWQgAZkqBn7r d7B4a762RQOqOZOoiC05 Ll5uiNpvYZEjzFSM cN5fhmhyp6tubcupWxHl LKDfBAr8AAq9LKYpfUma PyVnXXC0HkJ2VAN8aYKo wZ7adYacsdygqB9d Oyc+T10vhD7uRBP4DOH3 fumbVTZihcMrMB05PK77 I0JwDfauaAKcrQN+PGRp ilSryGokYN5mAiZj n1klc6QqRMkdC2CwLBUu MMhvSzm5PUAhPKR1gYH6 qO1qOHToVMqaz2C4jCY0 L3JngpQfjj7mk1aa CBFcUSjiM98dlJJwb2G0 CDUuiNB4QDMucWhlQjEg dN22Nuc+TOOmbLsrv4Cx Myzry2wdo4mvoJm8 IjMwJSIgdmFsaWduPSJ0 a2HbRh37Y69oMAvfDTSf CPSpESUbITJenHfhqj9v pR9qUv2+PGNvbCB3 cER2hY8cZRIrVwK8OMgc S134IhFpmOFmKhdgg3fo p2qnoFj9NeDhWQRqexEa mIzqQHH5g7CmPh81 E26eYKynNQPwAGDmWWJa HWTodIvlxp6dmC8rZs7+ JV0gd7itbk66gO18eCI+ PQYsYLT5dSpaBQam VCHgmA5aGEugVwP3TQHh KwCvwJ66tFQfACmeTa7t sHpffWodHM3rNSTmqylv g310TrYrl5ymZAVw sLYwGUyjZCS3H99ip3Y9 GJKaZKStMSM5oTT6dH3z bGlnbjogbGVmdDsgdmVy pUrkKXxfBJfzQ062 IHRvcDsnPlBhdGllbnQg MkXhBMm5K9DyUqy8IEFl tZoeWM6kzLHgWIpiJx5b fYoueIepDE5zWPYv nkooz306SxLnm2tlDQDh iKWtQCfaFVQ3C39ga3R9 PIBdKECrYVH8rQK9zH5c bGlnbjogbGVmdDsg klKchXtrRPbpQYzoD092 IHRvcDsnPkJpcnRoIERh aFP0MQ93YA64dUNuc5Z0 zBE0S9NiVUXjtcjm cqyooVJ3QPYlPQEuuC46 Dj0nyTvkXo5bLQPwMTH8 WDLwnLXhJ3FnxY5nItTc EYKzLBDoD8BccTFy LCifU006ZGdoZhP0AZIl znEiM2KyEJEtpUegLsW5 h3A6Vo8WE0X8IJ65BJ33 gFNbv8L0lJG0G6Nr QSLlnsvebzwvfLA2XQGn CCFyfW06Us0xaKadEz0n FAQeJMZ3ULLjtDFuQ3Mb tA3vBlOzDBZaXDZa E8KwyUDrZJkuR267WEqo UlM5AJHaywBrS5HxTHOd iNhsMfE5g3A9Sl0NMTp0 WI72EE35pAZcd2Y8 qLD4C4RiYOTxbjtwncty nBD1YPYbSFNgxX71Sm3k xJliSt3nAHXxDRY8TGKi dKGrN7SxmA0mOaCp OMDsTIXjC8AblULlLOao H130CPmhCfJ8ZKGaknNy B2HhQRYatQlgJlY2u8O1 Bf6HXYWzRV61UQP7 oZT7HP36FL56E8FmHjlq dGFibGU+PHRhYmxlIHdp ZHRoPScxMDAlJyBzdHls YD4hSj3fVCFxSRDt rIczaAIiOjFto7jmRIEq PLrdWY1qsRswN5SjpPH3 DHUnf3v9Nh42V50iT9Tu dXA+KRGbvLL8qSV8 cV8pIdPvKrH8ONhnW120 XdVtcNSjIrdgw9mrs7ur yHf2IvL7NZDxiyMbeRld AJZ7k7AmNt83S11f IHdpZHRoPSIxNSUiIHZh dQooas8jnL6oVr3+PGNv aOR4pSN0oY6zFsQhDxJ1 UBbsH587RnEorJDm Jkxpj7rxi2mpjZm1OiMf YBVrvyJetSfkGLK7d2Be Xk97J2JukEhlf0CaBvr0 jj78wPJvm1N0gBH7 G6MuFWAfewvirWRqbOij GF0qBGEiuqhiTFZygP7h BYFwB5g6XaZpHjA3NNnv C1DnlgU7BXAnkOKd PJbqRUE6C80or3W2OVVk DGZvTWX7rFA9xQ0vgElm bjogbGVmdDsgdmVydGlj OXiwRKrnI078WIUr sRgnYZGxyH0dQDKztQBp fRkiKV1pOMQwpcanYcaT QRLEU14JZFQDF0JMQT75 F4KfOze0KDMqyUfz ME1hrYCjMVpzJo1wxKsq cGwfDI0xCGXanleyKABf cG7jYILgiGHazZzoVS0m MIGxoakzu683DvGv BFK6GIAtzMJzL9AtdW0z UuStEPZrKNMzN8ExzPGi IGrpC638BStrSnG7JSTg wxKrZ7DaKUKyiGak RkD0x2Z3Sr7gBy1nQv8k ZWN5LJ87KG71uPUtn3M4 fIC6J4DvSNGyikaxqcrf oJF8UJYyWGMlaQ40 zMAgDJavWv6pv8J5c396 GYBzUXOleR76Mj9gaZmr AGIeiGROaO0quexkh7dg cjogIzAwMDAwMDt0 AMi4OUSiqHtdHzJdARW0 YeJ8GAD6lROpiD8hmWhi waipiM1fDru+ODQgWWVh aeD7Y9MuLzy8XZTw sEzxEW6sjHNsMDpnVt3x iIuzrOfjPU5wPLLumiey WRVdkE9aIBIyaDXdhOfp GH7aXFUwulwgf450 CgNqYBB9YYHhdTSaR8Fy sJ3sJkEwKQOlUANhU9Ln yJIfCZghV159EQqbQxR8 TMLvlsFeX3XlBNIq yFzaPkP0m7W1Ia3WFR6J LJD9J9QhIbr4PWSjgIxo EX3fxASzKOlnWd2pvIlq vHbuZV8sUAArphri PEBdyY5uKBKkgAKcqUuw GG8sGDPuklxyk363MpVq LQL8GOHnpXKyY0OsrW5e BaSoHKMcBOOtO5Qi tRRmDNixN968SRfqEqX5 WEEbxkEdJ9IuTEXbuGxw ZkY3s1A9Kk2RZTpzeYT+ SB77ya53J4NdGfvb Epa5NLMfIYC2zND8zA5i HCEiDNvay8O9xXO0K6Cc qkSaal8wp7jiYPSoWVtl T32wiYTob9C6OGYo bNG5YQBnnCfkOzLijW35 Oyc+VHIcfAffu3HmPaos g6hmk9mcfUl2ZlGhFZTb kzCgwBowVMW7w7Aa Jt87L62bOTliSWOkSGBr CIOvVKPntDrivw5ouC2g Ii8+MFYqaEY4yFG0wY6q AiTvNxE2JGkrP530 JvJmnUMcPgemd7zab3sm kUt7SvMtJOGedmSmbXio RLY7s4LmOs37E4SrhEay h2VdOfg8sj26hKPl i3X9yTT3O8CyVEVownmj kWEwlCdnAL5oUPVkvdxz FAAnnP3pBUPdJ0i5YoKs FdO0BVbwD7TdwuC0 OYMyfCXgZDTtqWARkL3e bqrxd5qddojcTjNfGIIf SYb8RUo8MKCwrHeyFaQl RHB2ViU5TII2uCQq cB2owRgqbwcmxJ4qJhp+ SPu6g5nibMUmFN3rxIB4 MB54KD96vOTjf8U6qPY0 Y7BhSNRmqrxykgbo vJR4QODwZGFgsQ85Rx4p rVrtNa0xMCKdQEN0MJPe fPGxP0OkwK8wNyPoKGSh UPWhS7HgtYSiKQfi T448ABkdXdV9UFEhyuLl G7GzYROvwWzkZdY2n7Z2 Wd1BMY49DE48VO81zVHe e7M8rLG2P4LsGHHu aplifvjqcPK1ZXRuYBUt uQ36Zr6qnHsiTd8jWQJo QSG0ZLQapZJeN2AfgW7d GhUcUKVnQFSsD5Gg mVWwNLauJ358XYliQvK9 YSIwedJsZ4FlAKWycThm DjE6y1Y5Rc9XFx02XS42 GR35mZTjg1L4yEF7 X8CeBMNqoxeerbskkLB6 BWAxEYLypD27Vn0tdKoi Tc1eOYHkYZB2NGOyiKUd O8RrjI2gNrHmWOZo UBPdO2VfaILuXLukZ969 LHqwUjT1AWPwsdCpQ0Px AYAodLejRjP4p9J3Uj3V ZPevsjt5I1UmNbnk dHI+DC77NEWjIK69iRQg gHGtn7zbaOg5GrBiEOEu YRI0qLocZJsus2AvJABk M43fcYAsm1N3IEYh bGx (more content not included)... [facility] Coding Summary HTMLBase 64 ZskjhtczHLj2uKm+PGhl YWQ+VT7NLNPhI81xnWCp tO2VS0aHAM8GWNORDXHE WN3BFH9qsNK7QUgvU8Sd biAv FesrnRKdFY06MVg5THV2 uEmrPJoujR7xqFPpE4l2 RlDcYB25xQ50HUkpPZUu CtD6ZuNzkpcolRBc M7chZnAgfBZiGnn+PHRh YmxlIHdpZHRoPScxMDAl SoKxbGcsHQ2kDa8uWMGq LWNvbGxhcHNlOiBj j4uiBXCxVGjbHS4srUer Z9JtxLL0VMCii2f9Op04 dHI+HEHsZNQ7eAceIKbm h298QnYhp0muEAF7 bXLoYVbqMVN6U27hs8X5 ZWEbGMRuUVP8aJB6jS3r lKpamijlI7KkyFMyAgH3 CJP2dYDjhF0eeTqi cruqtG2vTss+F81YJK7R ACPCFL4NZwz6K7VzExju dHI+YC37SPKeGR19vYPh aWUnb5pjzJx7CnAs DXHqVFD6jMzjIGvlh5Na MAXhV30fyHUmq4G0QDBl wDbhhZXqEvYmpOO1fQ7r LMuhakhvk7ssppgb Ekxsn5stbm85yH64W40x OJssXMVlHAB1VSSzBWFa bRolkb4nqP8xEr3+IDxj g7wgo6szkPb6GbPx OTCgesVdnZxqEUQ5k7Hv Lh06M2VyoTcco9TpHkv5 ll23uHEsi5G2jZA5BLgo NRBppL4uSHlvVuD0 JQMdDbRgaX94vQShDHkn Ss4qeJweoFuaVH4tXMPv olixLGIvoT6eTLIefYYu hNecLJ1cFDLdcwtk h242BiQyPRS4HJCdtWJu N9HkhV0oWgEzKSCnYCNx X8DbjUJsSDrmX079XWgh AaG0VHCukpPhQ9Mw WHIbzNwgReA0x7Q3Zp0M u4GmqxccOFO5HJskMIX0 UlW9FkQsSbE4P2GqQrd7 DHWubFszGZ4lY6Wx KQYfkkahazertDP6OTOb HVOveR72eIFgZSvaEr7k d4F8r198ROHgJCNunM04 Hf5soWaxUSGqnMDN uG1flxdvm8acpmmpWeRf OOPsDTo6RBr8YJSedAhj SaAqVEH6GhD9DSW9fUEr vH4whEuqqwytfF6a Oyc+U81fbS7iIIQ8LKE8 ecaiYYXqnpMkPJ22WR79 Q8ZeSxqmiJHzrWX+PGRp kaSdlArxNG5gWzHu u2tvh1WyAQseQ3XjZKRy EDupTgu1BADbCTC8sJL8 xA9iQHRdPZwla8H8bCJ2 T9MklaKqlv0gt6cu SEYrFEteO67vaCXlg2U0 BGNwgWX4EXWspNoeJtVh qC50Dah+HXIiyDeex4Se Mkrsr1nmr1ikqAy4 IjMwJSIgdmFsaWduPSJ0 e3UcOv08M37uDHeoRZMn FYCaPGTvNZFtgFczmy0g wV6uIx2+PGNvbCB3 nSN3oK7iIFWrWeZ1IEsr C436SkMfvCHaGcblq7eg d4pahSo8NrCcHBJuafFd eCivJHV8j7LjOz90 L70iMFnzMUXrVIRzBRXi SVQdtHvozd9iaK8wWr9+ YB5gp5trnf33qB11uTY+ QWDyKIK9pGxdKJlg KAMazJ0jCBidGnV3EOVd MrLryG65wFCgPCawKj6a mZnglCaiTP7nYJKrmldl h047JaMjh2gbIBBh lHNxANfwQZQ1T67xm9S1 EDZpOWJaIGD1xMT4zA3g bGlnbjogbGVmdDsgdmVy jAscEOmkBIzeE771 IHRvcDsnPlBhdGllbnQg VfTaYTu6G5XqQsp9GUJu jTtnBP2wdFHhXBgpLn4r lVkbuFhzNA9yRIBq nhohw895FfXgi0xkQOHk eAFhDPwlNZV7O72je3E7 XYLiMOAyCIW4hTL8oY3b bGlnbjogbGVmdDsg qmReqHygXTpkHOooC428 IHRvcDsnPkJpcnRoIERh rMS2WI40DE12iEAui5T2 qZU1A3UoIKZzzial jswmpPZ1CTNlOAVigR49 Bs7phIhqZx5fTNXnOTW7 ETLykAVlX4IvbN7dXuPv SQBrIBVkJ4RkvVWl QBinH118PIwhApM2MMJr zbOrP2BoKQBwlFayOqC0 s0V1Yp9HF1S7WH81XN00 aWEko2C8fPE1F7Vx XFKcvbkzlrmfbXC2ZIYw FSDmgL79Mo3ylMuaSs8h XLIpNUE5XAAzsECyN6Wi fH8lMxMmHXVvVKUb I7NmfCDrSHgdH082FGhi JxG1SSBztoZbT2TqHATb uPwyXmU9a2Q6Vd5MTVw5 QE99QL25mXOyv8R2 kJW0S3EnQNJhtuiueamn iDZ8ZFIhWVHevA70Xd2w sMviDu9pHDQtQKD4VYGk sOQcZ3UbkQ9hMcKu ZZRxNXDgB7MtaDSmOMmu E314DHqoGkL6DNBurdEx Z3YgVDDdkTqjTdJ2e9C8 Xy5NRVQwVY19JTB7 dNT3SV59OP64B6PeHutj dGFibGU+PHRhYmxlIHdp ZHRoPScxMDAlJyBzdHls LS0iUa8tBNZeFBSe dSkfcHFcHvRru6hxURCj MVowRH4ltJopP2FsxCS7 ZOAtt1s2Wm08Z33kI6Hm dXA+ZGYneOU9iGF6 rC7yQxNoToL1HFtdR777 GmFwzAUsTopzp2lzg6ms dVs8GtR9HMEkauGgzMiq XWE6z0VdNj70R53j IHdpZHRoPSIxNSUiIHZh pVqxkx6sgG0dCy0+PGNv eJH6sRH8iV1mFrWoZqG2 GYqgR298DfYogAQj Qflnu0jak3qypJh2HhRt JYQyjzMauWhsJPF8l5Kb Zz06D0XwyTpls7FkSqz6 ea56kWYbb2M5vFI8 M6WjNDKyknofePDnkHci ZO6tHUByllyrRKZczC7j HZXuV2y8IuHoLwW4NNhc F4OqbkG5HYWwrPZa FPkfSFL8I40wx7Y9GQEp MVZyVNX3kNA9wV1yhDnf bjogbGVmdDsgdmVydGlj JOejCAueT127EHSt tVmvXJTkrR6xYJGefHWf sEoeCJ0jHDRwjpmhYxpI XGJLG91ROCXNP6CITW78 A4XqXvu0OIKchHuz ZT3xhWVsPRlrWz6ygGjh mEsbHI8jSSCngjexWDXz mK6wYGOlqNYnzEjwHV5p TJVfsbxsp966JtJj NSL1YOQxuOUbN4WmdW2f RfNlLQVfNNJkX6QhwTPh XRizG118BLyxXbR3DGBz qsQwX5QhEOJzeRqo HhL4n4N3Bk2wWl3fZw4a KWS0ST81FB15tMNrh3R2 lTY9G3BiEBZnkkglivbe zLX9KHWgPECvyJ04 cSRwFVqmNt3tb7U5m399 WPEbTHIxsM52Ch6jdMot WQNvxAJQyK4iezkyx6cf cjogIzAwMDAwMDt0 UMi6SEEygJiiIyPhDYI5 MyL1XHI3cLMvvJ8lvQsn qqzztB6tQwz+ODQgWWVh tyF3V2LjHti6OUBz fWyeNA6cqZNpLTzfUv5d yMsrgOvjEY6oBEVoeamx URWqqA9kBUYxkZWltGkh FF2gCEImfhagp145 TaBrCNL6UKGxmXKlD2Pj pL6wGdNzGAXeNYLwF6Zy uDIxJIunD562NLayUmX3 URTppjYgD9XuEKHl vCniVdW8x4I6Bx9WZL1J DJS9O7ZnLxq4RTMvsHtb WR2vmUUgINphCs8rjVli oTjaEZ6dQRXnqpml AJLshB3yKAKdnSPrqFsa XT5tKLNighckx363PeLt TXZ3EYXufIYtQ8PkrS9s AgRgETPvMKVsN3Qu iPFyLIqfT770LUokJuK2 JGLfrdJyU1JnVGUrxHsb AhM4b7F6Fi0HEIfceIY+ AD77wg15O5ApElsb Xvb9PMWrCYK1jDN2rC5v KLJfJOuxr1E7fHA4U6Lw idGaor6pr3yoZYBfELrs M20rsDPdj2N0IRTr xPM0CSFioFixHsEyhA34 Oyc+DPCpiEosk7BeHprj b2cun1rijBa9FvAgYBIz skGpwVmoNYA7q8Nt Zv63X77cPZqvOPIvQABr ULWqFOErfScmsr3eiT4s Ii8+IFSesZL4eRQ0uM6b PlDdAmH4HYkgI242 UgMliFGfMczzg1zun3ki pCq1IzZzBTDlqeLlqReo BVZ1v6AbDt78Z0OwvAzi f7XwDvo2tm50aGJy k9M2yHY8X1ItTKMejuqo kXMcfYriPS4wQLTldnpy CWQufT9bVXIpW4y0SrQm StW1ORizA4EykdG4 GWDekGUwXJMwwTUPhH2s uqigq3cyjqgoXhCqPXAa FDj8ZXu7LYPzsSbiBfPk DDN5MaA8AMT4xOJs bC6rcGyemybutM0iNps+ TRj0j5unyDPuRX1veAQ1 XB87YF22lCFnu8Q2xBK7 P1CsEDBxkcceuqbu zEL3HDYzVAReqD45Va4j sOvaAy2bIADuJCF7PDAg nDWyC4MzbN5cNmJkINOp DQKoY8VjzLRfSLhv U258LWdgHxY4NQCsuhAo S3McGAGmvZuxQcO8b5J5 Aq6MVS21BQ94TU84hNOd n9Z8lUK5Y7QdKJOn lxkvbcuztFJ3VTDuKQEe gW92Fb4cdQlhMk7eDGWe AYS7QRKcyBTnX7EaiG6j SmTdQRGhDVBbM8Kx oQSaKEbyN934QNzxHpW2 TGZmdhYuE8GqVPChpLvn ZoM4r3H9Je8YWx42SL08 UG99gPYnl8A6tRM2 H3FqORFieiazpcvurGF1 AIIeWOUzpP79Ln8fcSzp Nv0vNDSjYIR8BTTioPBo S0BleF5aQgXaMEJn NWZnP8FkyIAkGNygX588 TUogWpB4JVTqkdVoY7Va QFQkeEnnZsA1l7K3Bl2C PYhmwxz9G1DbJtsp dHI+CB13BEEbMM23nYYu cTHgy8lzcEm7SuYzHNHv JTM7gOsrNRjar7BePEQo E89ikVNca2Y3JOUi bGx (more content not included)... [facility] Coding Summaryon 03-12-2023 Coding Summary HTMLBase 64 VkjjtbnlWKt3lBe+PGhl YWQ+KM8EQNIsV07klJNp tF2HB2sWPN8VWOSZEATZ AX6AUS1tlWV6KHqgX4Mj biAv YyvvaYRvZZ78GLp3QON0 cCnpLXkzxU5jdPEsZ1e7 ZpOoUS38mW72FAtfGFBm VpA0CySkqxwxeUAp K2bhQaCdaBBjPpa+PHRh YmxlIHdpZHRoPScxMDAl YiJspRftJN7xPe1mJIQa LWNvbGxhcHNlOiBj b7fnHBIxSOexRJ0beMcm A7AdiZR4FUVop0k8Cn06 dHI+MOOzBJL9wHhtCPre i695BcMnx6hqBJX3 fOMnTBrsYIO0W77ti8Y1 ZDDvAFPjCEV1mKC1yI8c pVcxuswkG0OacPRxIvE4 JGF7cRFwzQ1uaWtc zygpcN3tXgo+Q61EMQ3N PCWVJR2SOra8A3SlZioh dHI+DA00TYVzHV78sSAp cDRfy0exbOw8VeNh KWOpYNZ2eRcnESjqv5Dx XQUbV95hsFPcx9U2NVAi lEcomWXsUjVrqSJ5rN5y IScyqzzqn6clqisv Becej7kzqt20sD68I61q LIzpVIGsDGU7HDRxQORl pEvsyy2qjB1fMe1+IDxj o8ypp2byqVl5OcWm BXZxygGnqFpvYKO1v5Ko Yp00D5UpjVkvr1NqWyf4 nc70hOKxa0J0qOF1YXqr QCNxdA3dDFkmXuC8 NTZiNyNmsN87jHKeUNwo Uk1bnPqwuMrqWR9hLFYd jtzqXNMmlW4fVBGhzWCm nOfjSW8lWPCljhyo r770VwRqYYU4RATjtEJy Q1UlnN6uKjUkQZBoBKOt R5LmtPLwUBsuM851FIqa EfV6NARraeZkD0Aw PPDtqDhnWwS7w5S5Aq3H j0DziahaRRQ0AAntUTF7 CzA1DcNlEjM0K0BvTem1 SOGslHnxFL3fM1Mh PZWazqjndxpkhFH2IVFo WVHpxD95vFRcTOkqDg9l i9Q3n062VZDrLPYyuC82 Dm8iyYefUMIcpDHY zC0rywket1rnazkaZlRq NADeAGk8WHn4ZCDywHdf PtYsLES7GgP8FNL3aCMp xZ0keBgjhulngQ5x Oyc+S93puZ2cKJE8FYP0 yhoiWWLsnvFcVY17RW08 K6RmKbdinNCqmXF+PGRp yhSwdMftXD9cIkXn i4cod9JgGBttM7AtTZYj MDxbIbh4RUTiTHS6uOA0 yQ2dEKQqPOycy0J7uZO1 T6GikuWpvd7zs1vy YOTyAItbZ86ueMRla9X1 SWZzyDF0PHTfqNpbCeDk zF18Jwh+PUIncDsga1Zw Sgbtb2rvr8qngZg8 IjMwJSIgdmFsaWduPSJ0 v6DiRa89V22nVDwzYPSl PUBcDPHiCFKnkOdvsg7x hK4vBn4+PGNvbCB3 xMU9aR0mGOHwUpD9OWvx O995VpCfzVHbTseeq0jo t2cbqEj6LwEqJXJpvfNe sMeyKSR2x5LpCk94 R45xDYsnOHCtUZBlAAEi RIRsoSmrqx3msZ4sZx5+ UX6mh9pfkc10mJ75oHZ+ IOGwBYK2aRlkCFgh DCKivB4fHStaVkM3VLIl JcIwjC97eJFiDVvaQz4t dOcysQlbZN2cBXYryoch f861ClNxn8uwIGGx xRTeTUetTJQ6M20cc6U6 NMYfCYFfYJU9rGH0lQ6t bGlnbjogbGVmdDsgdmVy uFxpPTgmBIjhE946 IHRvcDsnPlBhdGllbnQg NeEqGIv3K4ElCvi7JBXf vLhrUZ9jsKRmVKljOx2t dVuzzUxxYR4dTFSu vsugy246DjTij6vrOHPi uKVpRNddBWL0W85ug7P5 ZZVyRXKxTLH4wRB9pC4o bGlnbjogbGVmdDsg xoMagKfjQFgpXMfeO875 IHRvcDsnPkJpcnRoIERh aVX7MD59OA21hPYsm5Q8 vDV4Y0ItKYUzxcme urgqgKN0FMObTLAwoU53 Wn4lhFleXp6qDOBqACV7 SHGfxAGyP5OymD9iSiWl NHSfVBXfR5HdaEUp WLpmJ213TLmwZoX9BBDr heYtZ2BkOTRuzBfrCmM6 j9T9Cx2UK7N2ET51WG11 yYZlm7E1bBO9S7Ax LHGilyonoqtgvSF0GGEl NGBxdJ67Fr4osAenMh1m FBThYKX6NTOvpPXlV3Vb fO2sJbNhUSZbYQAv R5PcnYZcVHzeI344MAgf MoY8PKYvkuPkU8WdHODo mEpeGoY2n5G4Jj5YRLf1 ZZ45YR87oPDxe1E7 jNO1H1CdRAOfoxnzljmb kNG3ENGbJDPolI54Ld6u nSwvAf9dJWGmHRX0TCGa kTZtD5XyoU0cHzLn ZIEiBXGyK8QrdOYqVJwf Q783FWkjUgI6ZOQdjsDo K8OhBKAygEfzZbQ5b3A3 Cu3SWHZkUW57ZLF7 nXU3ZB81QY53W1XhExnh dGFibGU+PHRhYmxlIHdp ZHRoPScxMDAlJyBzdHls LC0hTg1xKZSwMPXi qUzscVCxAoFuz9joVAJb NZwkLY1toAlgU8RnvHB9 MCIij0n8Mj98X68dD6Kj dXA+QPHcuJR9bZY6 cK2bBoNnHnJ9WAlyF918 HlVsvDWtNqkww8sdb6ln tYf5FxH3ZPSbtpNoaMvb OWS9e9BaSy06A72g IHdpZHRoPSIxNSUiIHZh rIfpun1gcI6kQy8+PGNv iHB7kKM2aR9uIrRzElS1 TBnwF183ElNdnYGe Gmjun9wid7okyPp9AlUy WSYmbzIyoFcbAGX6x4Cj Ng99G3RhhBgqm0QeXlt4 ax31kSMkd2K4mGA9 J2PnWMDrlmqelAIzbSfo MX1kPBFotziwKTZoxF2w HAArR8s7LrLpHbC6SKam V1XfxlS5OTIkmHTg TXrrJRY0P75hz6V6FCJr SIYdJDQ0yGI9aP9dbFev bjogbGVmdDsgdmVydGlj IZrrEJyaJ911YOQg sCbzCEUmbV9vNKOuzSZb mWexJH8yMHPpqrjdEhuA KGDHK21OCAVHP9UFJG70 G6VoXtf5QHKmkGce BR2hlGAaVUzcQx2ilXpg xAvtOE1mSSKtzeycBTNq vQ0jDUQwzPBhgYplLB1c OWKmuqjse091AlJi XPL1IMDzyVUpA9FqkH1e IiPuBWDeJKWqT3CajAGo BHntR351TItmZbH5LUDv hqJpJ9YtUMJzwZww WfH1j4Z8Im6tJq4dGc4m HXD4PT87KG23lNPia3H1 dPQ7J7UrXFFjjvxkbszf fUF0AEWfZUWydP36 zIJvOAccBq3oj8U0z623 QAMhIFEvgA16Tv9vwPsl VUOyvXCNsF4dcoidj4go cjogIzAwMDAwMDt0 XWr1HYGejIyrJpReZLD0 UdE0JMB6vRCfjW0lfDwj gszqgR7lZmy+ODQgWWVh ibJ6C0UmJvd7JRKj lDezEK6tuVPlAPalLw6c fCrehEdvQW1sXGWrfupz NXZotX1rTHSrvISzcZyi BK5hSKQmjobwq021 WjErUGH0EXSqfUHoA4Uh gP6aFzLhFPOgWGDoC9Ys zKKhZQhuO006JVhyMlN7 KSMfvkKfY2RpUFSi gEroEoK5n8A8Ek8QPE7U WVF1M4KtWjh9YPJbvEeh NG8nlIFcBMrcSi7wmFap qWaaIN9nIPIkyyal UPYesR2hBDNvuFOfvZqo XX9hAPJlgmquv463PbIb QYJ7YEShtEDkV6ArgJ2v KdNfYZRlBUNfL9Yn fFQaCCauU063UWzmWaI3 NUYbqgPtN5MnNHBndRbt YrH9w5I5Hk3DEVaftNV+ UW77gl50X1LqZlvo Bci9FHNmKUL0mHU2jJ2u TMXcSAjak6U1kNA3E2Ay gnOgfg3ib3qqMAXqXUei E00rwASuh7F4PECx vRL5WUHieLmmLzOzrE93 Oyc+VRFwdSdod9WaSbbk u5jwk8erxHj2UcZiPPNn upSeeFmdPPG5z9Ey Qh22B78uVCdxJRNyUMVs HYFjBVYpaVikmq3itH8n Ii8+ZHCjoJW4lMA0qA4j ZkYqTuI4ZDzvX690 ZlJxiJLlNergm2coo5je zNy2NoJqTGKiwkBayRig JUA7s5IgOe37C8AytMul b0SgKby9qr94tFYd h2E2cKX9R5UfLMGssvtw wRYffUvrXW1kDYRhvcrn UWJvcA8iLNMzB5e6RuRq YcT7NWxoC5YttzR9 XIYrrJObYSJbzJBRzP1g gttyv9kowkyhXsJwOUZn URm5APf2GMLsoOfuFgLh ZBV0YgA8DXB3kOQq oX6llVkxnewyiK9aBub+ DIj3b8pbeTQnRO2gqKD4 VV78BB13jLPfu1N1kQH6 L7TcBTWotlzdjwqm yKT7WRRdCLWkoX58Ig2l tLxoVx0bWMUaZJH3IURr bKLyV4SvgT9mZhByCCBi KYZdJ4DcaRBbULca G425AFcyXfN0OVFmzfNg Q7KgNKEhgXgsNdF9g8C0 Iy2VFI35BN19CP22cMWy y5M8kAF2L4VrMXXc wclkbndzqOH3WQCyTJIz vO03Gz5srQyiEn1cEVQn NEE1CWUzjPLwX9EvjA2g TjDgRMQaMETmO6Ah bCSfKSwoN708MLdkHwH8 HTDapoNwD2AtJTTakOzc VpG7e8W7Ld4KVj83LE72 WT07eNAfo8D4vUO8 G7PsZDZyvzxvmtrxeBG0 EPBmVNHhbR99Yi4fsCwx Jx0pOJFnLCH7BDKlhJJl B3WimG1gQxEcCARb WFWhE1PbjYVdBFyjC737 WDkwRwJ3PBCtekSuT1Xo DWLdoMhfEvA5x2P2Tb2E RNnghod1V1TzJltu dHI+UN24OVQcTN89aRLb aIYji2lbpHj3FqFfJQDo MLE8iBbxYSjeh9WtRJEu P97fuLHgg6N2PBWw bGx (more content not included)... [facility] Coding Summaryon 03-08-2023 Coding Summary HTMLBase 64 TohnkbatIGo8aKd+PGhl YWQ+IF9XSFQsL82jgMRc vX6VH5uJDM5PWSSFMLOY LA8KTY0ptVJ5MRfvA5Rr biAv IfjyyAXcTO69RJi3SJV5 uWumWCpcwV9tgQXjP9u7 MnAbBV83xC08GBvgZTYn OcI8CxXshmbdhRHp K3ivVrWnsHRmWeg+PHRh YmxlIHdpZHRoPScxMDAl FpLmkWeaQR5iNq8kVRKf LWNvbGxhcHNlOiBj e8gdFFEzEPejXS2jaWwc E8BckRG1RMOhu7k7Zt30 dHI+TDIcUYB5hFrlIKmt x040AsMed2ikVYM5 rOZfGBuuFLO3W40qt5G4 NVQgXJVzEXZ1zTR1lM9s fBmkbyyeO5VgfKZwOwS5 PWS8iVRlmX9smOek vqpveC6cLac+A33ZYD8R CKYFNW6YAlf2I5XzWaqm dHI+DD10DICwZL59dPBz qHKmg5deaJa5VtRs OWXuWQQ2qEsgUXfpl0Ul PWCyR57lpZOuf4K8NSTw cKuuvRRtEbZumHZ8bR3m CQlphyake6jquzhr Noikq7zyyg37oQ48U85b OModKLVhYCM0VEKdRUJh dYakzd0vvU8hIt4+IDxj a9tel8clzOd3QcBd LEOusoFgvPrdCEU1f1Rw Ro88G1DqmIwfr0ArSbf3 kb51lZTyo5W7rBB8URus GYRezM3uVLzyMcY0 LWLvZjWifG02cCUfURue Io3fhEqxcXcxSA5dCDFi ivafNEAcfG8fSIKdqOIa fSgdSL1rMGXkknpw v597RvTbUZX4IRBijJCi I1AshU4bCiLnCNNtKBIk K6SeoPDnZZmdR281TWlg DlX9DBUgkzUjU0Sd OTIdbEefJaX7k6R4Cs4I y5IybcmaZQB8LQakWDY9 HnR3OeUaVtY2N8WnBpo9 WIOrzUovTV6wP2Lo JQElnicorlqubHV1ZZPo TEBudK23zCNhOVubCi9o i5O5j821DDWzSJBaqS08 Lm0zqLorKVMxyQOU eL9xgqwjk6zvwjxsYrWi OXZiANj3HTb0UYAqvCkp RzYxQDT0UlM1MRH6nYBn lY0qsCefsmehqG1t Oyc+Q24nyN7sOME4EMF1 rdqeUFRezxNlIQ93HF52 Z9GvCflqnYBzvPI+PGRp edAucRaxMP3dBjHp u7rdq7PzUOvxZ2ThMNZu FBqrQpv4QUNuYWJ8iVI1 rQ2cANVcHMqsk4P6cNF0 H3UvejPdwg0cn7vp QQIlNUaqB70rgKVtt5V5 VBLuqOS0RODtmXudIoRg tQ03Xpc+FZQeuRhft5Pn Bwydu0opz0temRt2 IjMwJSIgdmFsaWduPSJ0 a0FyXl39W85iUYomXFIq VWMzSSIlEMKsjHnirg2m cB9dCd4+PGNvbCB3 lFB9bS5iSUHmSvL4IFln A626YnFjkHJqDqwgi3zl r0xdnXu9HuJyCXGltuVh iJaaHIW5q4WyAe04 F54bNAlgISDqMLSzGWJa ZTAblQofrs1tiL2qTm2+ TU1uc2blnv71lY68cNZ+ EBIbTOR3mIybYJlw TJUxeW5lFSlyNdA2JXOp FiMwrM52cEXjRVuuOu9z oXhbuIpmFG6oVPIwjfcz a778NvIbl6baCOSz zBSyBXwtHHB7W22db1N9 MEZzJNTmGNU9eNU9uP4c bGlnbjogbGVmdDsgdmVy gYmpEKzmXNwvB458 IHRvcDsnPlBhdGllbnQg ZaRkHVv3I2PjCaw3GXFg ySolYL0qeRFkEUkxWs1c cRxzaDoxAO5eYZUe kgppy326NbFej8zaYDVh vYEoVUoeVEJ0W56ze4M1 ANUwZIUrFKO5uEU5sS6s bGlnbjogbGVmdDsg atPdkUpzQOjmNOzjU529 IHRvcDsnPkJpcnRoIERh nDU6NV83RA98mPXyd8X3 xST7I7RtJSEyofbo ekgnpJA2KMDjWJUuiL37 Mc8wnXufUl6gDZQmYDP4 ZODmeGIpG2VmvP5dEdZz ZBAoEKHeV8BhyAAm BGosN298TUfmQfW5UKBg rcFhC0UgTZPzvHyfLlK4 u3F0Fj9SA2S5RL13UA53 cQMmr5V0gRK8Q6Dh XNSsvzrlidlwhUX4OIZa OIXbtY56Wh4qpUzoFd5s FZJsCZO1XPTduNAnA7Ja eR6oOpUrKQNbBAMx P4YtdILlBLhuL070AWij GlG9QZUcltZdP7WfETUv kYjmGtZ1h6W1Pv9TEAw3 GY05SA39dFMva6Z4 uZX4S9NuMYJwvoevavnz fNK5GUXrOCIlgC48Td3i lFbdQk4cIHYtUSE5OFQr iXNkC5KdsG7nFxRo SGOeWBYiC7YbcCIaVUph J618CKnbDpL8RKHofbYp D2RoFWZuxRvgXnV9i8F5 Kg1GTRPpIV51NUW0 zOR9QX18WN40C4WoJdah dGFibGU+PHRhYmxlIHdp ZHRoPScxMDAlJyBzdHls QP8lYe6aWUArBICm jHolmEFoDnOeu1niLVAg WPysOZ7psAtyS6VkfRQ4 PHQqi1v3Us97J82vT3Ad dXA+BROtdHQ8vIG4 rP5wEvRaHbJ7ZBzuC303 AzXtlUFcUpakc2fao9kk oFf7KlR3LQYwitWxaCvx ZWU3v6QdEn47I34s IHdpZHRoPSIxNSUiIHZh wTvuiz9wlD0xLc1+PGNv bJZ9pLP4tY0tZcOyRbV8 VXzdA096TnLrrQSn Zgupl8lrq0qupJf2NyWc QPPetbWgeCrzBBV3j8Mr Sd62M7ThfJmca5UqYdu0 lw41wZQpg9K6lUH3 Q2VsKGMhzgveaXAmcFxc FE3aEVPkarhgRLIegI2m LIPiN5e7IoBiYbO2BSba J7CgldR3JNOcePJj JBwcXUY0A33bu8J4FZSc DZXkGKV6gGD5tK3pnXbs bjogbGVmdDsgdmVydGlj OQqdPUvtZ105EKGz fElcYJLjoY8jIQSirCIp fPvdMZ6oYEDjcadgNyvZ VJAGC50UQPRLA1OWKR80 L1PdOtv1QFAtzDxn XL7qtXRwGHlzFn5glLim gXksMG3fWCVtammrZWFj qI8iRZDgeHOuyHofVQ8r OPAbcwxad620ZdOp TWA3WERuyOAkZ3UqaQ5q GmLxIQHlUNRcL9AugAJk TXwfT921UHriJdD8YESp mcAoI1SrYIWwlQae DcV9t7R0Aa0zLo6yAh7b RWI2IW53FN70xBJvw8M0 rBN6N9RfEDJpakyuutud rJL9NBYiNDFvjL21 aDNbHFaaEi9me0H7e391 TABtGASwsG48Wk9ezCaq SXOywNCNcA9lbfblf0mp cjogIzAwMDAwMDt0 MPp9CZQspXbzWuWyLNX2 CsH2CLK6dNMnfR2pvKdc rkziqN8bMvb+ODQgWWVh jeW3Q6UeOog5QJMs iYpeSW0fqEGxBHcjNj2c fYgvmSfdEJ6kHZMvpmor YEHhaM8gRZPswNXtoLcw GW9kDIChceuls062 HzHkCFP4QGIzsQYsZ6Rh xZ1gThUdOEBtEBTqG7Jb eWGsDQfoF778HFyzUkY7 LWScynTiY5FmZNBt zQpeKiZ6e4X7Oa3KFS4M LKF7Q6WbHth7IIIjwWzb SN9wlXOqSUmpUq1zcPkh hYclOB5gCCLlrhro MHCxzI2aQFSatDYgyBhy YP0aKNRcujhkc145KwHx LWW7EAZhtNDpP5NtiI3h YgQuNPByAGIvV2Vf nNQfRYndE140RCbvExV8 CNMlodGgW4EdZAXhqJus CpF1y8R7Hc1KOQhesWL+ ML32sb87W9DyCdij Reg8ZSCbAGK7kXA2eZ9w SZMiDAzel4K7hXD2U0Wr giPiqs0qg2svQARyFYzp K78kjFHfv6Q2SNEa rIN8OPBtfLldJyQfkI10 Oyc+EYPfvVriy6LpAdgy v7gip5xrxWq9OzUsDEKa zqCpyLfeXVW4m7Yq Oq72A12dUZdtEYTcKYVx RXAyRVSoeOahrt4qvO3s Ii8+QVHteDH4uWL5fH0a OzZzKtY9EFqhF576 UiLudYOrIeguq5odv3eg cEz9OxGmPGVkuhEpoFet JYP7e9SwKo99N9YvvHwf l0LfEvb6jm27yICe b7N5yMQ0V2DoEYBdsymj yLTinLaiMA2kVHWvsuza XZSgoQ5kIFBeX2x6BhCu QjN7VAtsX6TbygC6 MPXerEEqARCqqKDCbK3n wxmoy5wzetzzArOpJKUn UYl2SCv9WDKfeHrcJtUs WLB7BqY0CQT2qTNf oJ8hgHyjlpfcoS3ePum+ MAi6v4dqxPUvUD6maYZ0 QX29DK25bEXju6M5nBX9 U1YdOOTseatlmzqn aDN6UDXbRGLktD06Zy1d uByjRh0wQEYoGKI3DQJk jUVuR9FnrL7dTjVmWLNt UAPfC3KapWScQPhx S017PVuwWkW2RIPnuaWk F6BoQULpmPcvNfA0p1H8 Rv6SAL39JU85OQ26qDKj o7O6aBX9E2DuUVFr wwfqjyjccEA1QKZkEEWe xD97Xn2qoDsdEx0tLMQh NDE7TNHamYEaH5PuxG0j SaJsYVSlFYWfI7Uf kDEfXLdtQ785PCtiYjZ4 XXYgvyBdJ2TtFZAenSiw FpF4m6Q6Hg3SLu27IK21 YQ19rYRik4F9bNY1 Q6OlHENujxkvuimrgEM4 EXVtEOYeyZ86Yl2krRjz Vz2nZLPqYJU9MHCjvREz H0QsxQ9cYoOiKHKw BUNrV1NwnCSeINmiO331 WSpuZiN9MUNgnaQwL8Kx GXIdaYluMzH0r0H2Lu0C RBdszip8J2EtKyyp dHI+MF15URTeTX73qCBb eEXqr2nkwHw8NnGzPBRk IJM6sMspELfhh5BfDTMt M46pzVEdm2D4DUHl bGx (more content not included)... [facility] US LE Arterial Duplex Bilate ralon 03-06-2023 [...] Chon MALIN [facility] Venous Duplex Bilminoo burgess 03-06-2023 [...] Chon MALIN [facility] Wound Care Noteon 03-04-2023 Wound Care Note Patient: JOYCELYN JUAREZ Age: 82 years Sex: FEMALE : 1940 Associated Diagnoses: None Author: Rachel Barnett PA-C Wound culture from 03/01 reviewed. Left leg wound is positive for Proteus mirabillis. Prescription for Levaquin 750mg PO daily x 10 days sent to [facility] at [address] [place] [address]. Wound care staff to notify patient/caregiver by [...] Barnett PA-C [facility] Wound Cultureon 03-03-2023 Wound Culture Heavy growth [...] <=4 Verified Tri/Sulf S <=2/38 Verified Normal [facility] Comment on above: Performed By: #### [id number] ####[facility] (DEFAULT)[address] [place] [address] LIPID PROFILEon 12-04-2022 CHOL-HDL RATIO NORM SEE BELOW Normal [facility] Comment on above: Result Comment: 3.3 - 4.4 LOW RISK 4.4 - 7.1 AVERAGE RISK 7.1 - 11.0 MODERATE RISK >11.0 HIGH RISK Performed By: #### R ENAL, LIPID ####[facility] [id number] [place] [id number]. Breanna Heller Cholesterol [Mass/Vol] 112 mg/dL Normal <=200 [facility] Comment on above: Performed By: #### R ENAL, LIPID ####[facility] [address] [place] [id number]. Breanna Heller Cholesterol in HDL [Mass/Vol] 38 mg/dL Critically low 40-60 [facility] Comment on above: Performed By: #### R ENAL, LIPID ####[facility] [address] [place], [place] [address]Ke. Breanna Heller Cholesterol in LDL [Mass/Vol] 41.6 mg/dL Normal [facility] Comment on above: Performed By: #### R ENAL, LIPID ####[facility] [address] [place] [id number]. Breanna Heller Cholesterol.total/ Cholesterol in HDL [Mass ratio] 2.9 {ratio} Normal [facility] Comment on above: Performed By: #### R ENAL, LIPID ####[facility] [address] [place] [address]Dr. Breanna Heller HDL NORMAL > or = 60 mg/dl - LOW CARDIOVASCULAR RISK <40 mg/dl - HIGH CARDIOVASCULAR RISK Normal [facility] Comment on above: Performed By: #### R ENAL, LIPID ####[facility] [address] [place] [address]Dr. Shaniquevera Heller LDL CALC NORMAL SEE BELOW Normal [facility] Comment on above: Result Comment: <100 mg/dl OPTIMAL 100 - 129 mg/dl NEAR OR ABOVE OPTIMAL 130 - 159 mg/dl BORDERLINE HIGH 160 - 189 mg/dl HIGH >190 mg/dl VERY HIGH Performed By: #### R ENAUGUSTINE, LIPID ####[facility] [address] [place] [address]Dr. Breanna Heller Triglyceride [Mass/Vol] 162 mg/dL Critically high <=150 [facility] Comment on above: Performed By: #### R ENAUGUSTINE, LIPID ####[facility] [address] [place] [address]Dr. Breanna Heller VLDL CALC 32.4 mg/dL Normal [facility] Comment on above: Performed By: #### R ISAI, LIPID ####[facility] [address] [place] [address]Dr. Breanna Heller MICROALB CREAT RATIO RANDOMo n 12-04-2022 mALB <1.3 Normal <=30.0 [facility] Comment on above: Performed By: #### M CRR ####[facility] [address] [place] [address]Dr. Shaniquevera Heller MALB CR RATIO 100.0 mg/g Critically high 0.0-29.9 [facility] Comment on above: Result Comment: Prev iously reported as: 149.1 On 12/04/2022 09:35 By [email or web address] Performed By: #### M CRR ####[facility] [address] [place] [address]Dr. Shaniquevera Heller MALB CR RATIO RANGE SEE BELOW Normal [facility] Comment on above: Result Comment: NO M ICROALBUMINURIA 0-29 MG/G CLINICAL MICROALBUMINURIA 30-300 MG/G MACROALBUMINURIA >300 MG/G Performed By: #### M CRR ####[facility] [address] [place] [address]Dr. Breanna Heller URINE CREAT <13.00 Critically low 20.00-300.00 [facility] Comment on above: Result Comment: Prev iously reported as: 8.72 On 12/04/2022 09:35 By [email or web address] Performed By: #### M CRR ####[facility] [address] [place] [address]Dr. Breanna Heller RENAL FUNCTION PANELon 12-04 Albumin [Mass/Vol] 3.7 g/dL Normal 3.4-5.0 [facility] Comment on above: Performed By: #### R ENAUGUSTINE, LIPID ####[facility] [address] [place] [address]Dr. Breanna Heller Calcium [Mass/Vol] 8.8 mg/dL Normal 8.5-10.1 [facility] Comment on above: Performed By: #### R ENAUGUSTINE, LIPID ####[facility] [address] [place], [place] [address]Dr. Breanna Heller Chloride [Moles/Vol] 102 mmol/L Normal 98-107 [facility] Comment on above: Performed By: #### R ENAL, LIPID ####[facility] [address] [place] [address]Dr. Breanna Heller CO2 [Moles/Vol] 31.7 mmol/L Normal 21.0-32.0 [facility] Comment on above: Performed By: #### R ENAL, LIPID ####[facility] [address] [place] [address]Dr. Breanna Heller Creatinine [Mass/Vol] 1.31 mg/dL Critically high 0.55-1.02 [facility] Comment on above: Performed By: #### R ENAL, LIPID ####[facility] [address] [place] [address]Dr. Breanna Heller EGFR-AF ANGOLAN 47 mL/min/1.73m2 Critically low >=60 [facility] Comment on above: Performed By: #### R ENAUGUSTINE, LIPID ####[facility] [address] [place] [address]Dr. Breanna Heller EGFR-NON AF ANGOLAN 39 mL/min/1.73m2 Critically low >=60 [facility] Comment on above: Performed By: #### R ISAI, LIPID ####[facility] [address] [place] [address]Dr. Breanna Heller Glucose [Mass/Vol] 163 mg/dL Critically high 74-106 [facility] Comment on above: Performed By: #### R ISAI, LIPID ####[facility] [address] [place] [address]Dr. Breanna Heller Phosphate [Mass/Vol] 4.1 mg/dL Normal 2.6-4.7 [facility] Comment on above: Performed By: #### R ISAI, LIPID ####[facility] [address] [place] [address]Dr. Breanna Heller Potassium [Moles/Vol] 4.7 mmol/L Normal 3.5-5.1 [facility] Comment on above: Performed By: #### R ISAI, LIPID ####[facility] [address] [place] [address]Dr. Breanna Heller Sodium [Moles/Vol] 143 mmol/L Normal 136-145 [facility] Comment on above: Performed By: #### R ENAUGUSTINE, LIPID ####[facility] [address] [place] [address]Dr. Breanna Heller Urea nitrogen [Mass/Vol] 32.0 mg/dL Critically high 7.0-18.0 [facility] Comment on above: Performed By: #### R ENAUGUSTINE, LIPID ####[facility] [address] [place] [address]Dr. Breanna Heller VITAMIN D 25 OHon 12-04-2022 VIT D 25-OH 33.2 ng/mL Normal [facility] Comment on above: Performed By: #### V ITAD ####[facility] [address] [place] [address]DrRoman Heller VIT D RANGES SEE BELOW Normal [facility] Comment on above: Result Comment: <20 ng/mL Vit D deficient 20 - <30 ng/mL Vit D insufficient 30 - 100 ng/mL Vit D sufficient >100 ng/mL Potential Toxicity Performed By: #### V ITAD ####[facility] [address] [place] [address]DrRoman Heller PTH INTACTon 11-23-2022 PTH, Intact 40 pg/mL Normal 15-65 [facility] Comment on above: Performed By: #### P THINT #### [facility] [address] [address] [address] Breanna Heller CBC AUTO DIFFon 11-22-2022 BASO # 0.0 103/ul Normal 0.0-0.1 [facility] Comment on above: Performed By: #### C BC ####[facility] [address] [place] [address]Dr. Breanna Heller Basophils/100 WBC (Bld) 0.3 % Normal 0.2-2.0 [facility] Comment on above: Performed By: #### C BC ####[facility] [address] [place] [address]DrRoman Heller EO # 0.2 103/ul Normal 0.0-0.7 [facility] Comment on above: Performed By: #### C BC ####[facility] [address] [place] [address]DrRoman Heller Eosinophils/100 WBC (Bld) 1.9 % Normal 0.9-7.0 [facility] Comment on above: Performed By: #### C BC ####[facility] [address] [place] [address]DrRoman Heller Erythrocyte distribution width (RBC) [Ratio] 15.9 % Critically high 11.0-15.0 [facility] Comment on above: Performed By: #### C BC ####[facility] [address] [place] [address]Dr. Breanna Heller Hematocrit (Bld) [Volume fraction] 44.1 % Normal 36.0-48.0 [facility] Comment on above: Performed By: #### C BC ####[facility] [address] [place] [address]Dr. Breanna Heller Hemoglobin (Bld) [Mass/Vol] 14.1 g/dL Normal 12.0-16.0 [facility] Comment on above: Performed By: #### C BC ####[facility] [address] [place] [address]Dr. Shaniquevera Arron IG # 0.04 10e3/ul Critically high 0.00-0.03 [facility] Comment on above: Performed By: #### C BC ####[facility] [address] [place] [address]Dr. Breanna Heller IG % 0.4 % Normal 0.0-0.5 [facility] Comment on above: Performed By: #### C BC ####[facility] [address] [place] [address]Dr. Shaniquevera Heller LYMPH # 3.1 103/ul Normal 1.2-3.8 [facility] Comment on above: Performed By: #### C BC ####[facility] [address] [place] [address]Dr. Shaniquevera Heller Lymphocytes/100 WBC (Bld) 30.8 % Normal 20.5-60.0 [facility] Comment on above: Performed By: #### C BC ####[facility] [address] [place] [address]Dr. Shaniquevera Heller MANUAL DIFF REQ NO Normal [facility] Comment on above: Performed By: #### C BC ####[facility] [address] [place] [address]Dr. Breanna Arron MCH (RBC) [Entitic mass] 29.6 pg Normal 26.7-34.0 [facility] Comment on above: Performed By: #### C BC ####[facility] [address] [place], [place] [address]Dr. Breanna Heller MCHC (RBC) [Mass/Vol] 32.0 g/dL Normal 29.9-35.2 [facility] Comment on above: Performed By: #### C BC ####[facility] [address] [place] [id number]. Breanna Heller MCV (RBC) [Entitic vol] 92.6 fL Normal 81.0-99.0 [facility] Comment on above: Performed By: #### C BC ####[facility] [address] [place] [address]Dr. Breanna Arron MONO # 0.7 103/ul Normal 0.3-0.8 [facility] Comment on above: Performed By: #### C BC ####[facility] [address] [place] [address]Dr. Breanna Heller Monocytes/100 WBC (Bld) 7.3 % Normal 1.7-12.0 [facility] Comment on above: Performed By: #### C BC ####[facility] [address] [place], [place] [address]Dr. Breanna Arron NEUT # 6.0 103/ul Normal 1.4-6.5 [facility] Comment on above: Performed By: #### C BC ####[facility] [address] [place] [address]Dr. Breanna Arron Neutrophils/100 WBC (Bld) 59.3 % Normal 43.0-75.0 [facility] Comment on above: Performed By: #### C BC ####[facility] [address] [place] [address]Dr. Breanna Arron Platelet mean volume (Bld) [Entitic vol] 10.2 fL Normal 9.5-13.5 [facility] Comment on above: Performed By: #### C BC ####[facility] [address] [place] [address]Dr. Shaniquevera Arron PLT 198 103/ul Normal 150-450 [facility] Comment on above: Performed By: #### C BC ####[facility] [address] [place] [address]DrRoman Heller RBC 4.76 106/ul Normal 4.20-5.40 [facility] Comment on above: Performed By: #### C BC ####[facility] [address] [place] [address]DrRoman Heller WBC 10.1 103/ul Normal 4.0-11.0 [facility] Comment on above: Performed By: #### C BC ####[facility] [address] [place] [address]Dr. Breanna Heller FREE T3on 11-22-2022 FREE T3 2.12 pg/mlL Critically low 2.18-3.98 [facility] Comment on above: Performed By: #### M G, FT3, TSH, BMP, PHOS #### [facility] [address] [address] [address] Breanna Heller FREE T4on 11-22-2022 Free T4 [Mass/Vol] 1.14 ng/dL Normal 0.76-1.46 [facility] Comment on above: Performed By: #### P THINT #### [facility] [address] [address] [address] Breanna Heller MAGNESIUMon 11-22-2022 Magnesium [Mass/Vol] 2.2 mg/dL Normal 1.8-2.4 [facility] Comment on above: Performed By: #### M G, FT3, TSH, BMP, PHOS #### [facility] [address] [address] [address] Breanna Heller PHOSPHORUSon 11-22-2022 Phosphate [Mass/Vol] 3.7 mg/dL Normal 2.6-4.7 [facility] Comment on above: Performed By: #### M G, FT3, TSH, BMP, PHOS #### [facility] [address] [address] [address] Breanna Heller PROF CHEM 8 (BAS METB)on Anion gap [Moles/Vol] 12.8 mmol/L Normal [facility] Comment on above: Performed By: #### M G, FT3, TSH, BMP, PHOS #### [facility] [address] [address] [address] Breanna Heller Calcium [Mass/Vol] 9.0 mg/dL Normal 8.5-10.1 [facility] Comment on above: Performed By: #### M G, FT3, TSH, BMP, PHOS #### [facility] [address] [place] [address] Dr. Breanna Heller Chloride [Moles/Vol] 100 mmol/L Normal 98-107 [facility] Comment on above: Performed By: #### M G, FT3, TSH, BMP, PHOS #### [facility] [address] [address] [address] Breanna Heller CO2 [Moles/Vol] 32.1 mmol/L Critically high 21.0-32.0 [facility] Comment on above: Performed By: #### M G, FT3, TSH, BMP, PHOS #### [facility] [address] [place] [address] Dr. Breanna Heller Creatinine [Mass/Vol] 1.34 mg/dL Critically high 0.55-1.02 [facility] Comment on above: Performed By: #### M G, FT3, TSH, BMP, PHOS #### [facility] [address] [place] [address] Dr. Breanna Heller EGFR-AF ANGOLAN 46 mL/min/1.73m2 Critically low >=60 [facility] Comment on above: Performed By: #### M G, FT3, TSH, BMP, PHOS #### [facility] [address] [place] [address] Dr. Breanna Heller EGFR-NON AF ANGOLAN 38 mL/min/1.73m2 Critically low >=60 [facility] Comment on above: Performed By: #### M G, FT3, TSH, BMP, PHOS #### [facility] [address] [place] [address] Dr. Breanna Heller Glucose [Mass/Vol] 156 mg/dL Critically high 74-106 [facility] Comment on above: Performed By: #### M G, FT3, TSH, BMP, PHOS #### [facility] [address] [place] [address] Dr. Breanna Heller Potassium [Moles/Vol] 3.9 mmol/L Normal 3.5-5.1 [facility] Comment on above: Performed By: #### M G, FT3, TSH, BMP, PHOS #### [facility] [address] [place] [address] Dr. Breanna Heller Sodium [Moles/Vol] 141 mmol/L Normal 136-145 [facility] Comment on above: Performed By: #### M G, FT3, TSH, BMP, PHOS #### [facility] [address] [place] [address] Dr. Breanna Heller Urea nitrogen [Mass/Vol] 30.0 mg/dL Critically high 7.0-18.0 [facility] Comment on above: Performed By: #### M G, FT3, TSH, BMP, PHOS #### [facility] [address] [place] [address] Dr. Breanna Heller Urea nitrogen/Creatinin e [Mass ratio] 22.4 mg/mg Normal [facility] Comment on above: Performed By: #### M G, FT3, TSH, BMP, PHOS #### [facility] [address] [place] [address] Dr. Breanna Heller TSHon 11-22-2022 TSH 2.711 uIU/mL Normal 0.358-3.740 [facility] Comment on above: Performed By: #### M G, FT3, TSH, BMP, PHOS #### [facility] [address] [place] [address] Dr. Breanna Heller VITAMIN B12on 11-22-2022 Cobalamin (Vitamin B12) [Mass/Vol] 248.0 pg/mL Normal 193.0-986.0 [facility] Comment on above: Performed By: #### P THINT #### [facility] [address] [place] [address] Dr. Breanna Heller VITAMIN D 25 OHon 11-22-2022 VIT D 25-OH 37.4 ng/mL Normal [facility] Comment on above: Performed By: #### P THINT #### [facility] [address] [address] [address] Breanna Heller VIT D RANGES SEE BELOW Normal [facility] Comment on above: Result Comment: <20 ng/mL Vit D deficient 20 - <30 ng/mL Vit D insufficient 30 - 100 ng/mL Vit D sufficient >100 ng/mL Potential Toxicity Performed By: #### P THINT #### [facility] [id number] Breanna Heller XR CHEST 2 Von [...] by: DEYA MCPHERSON Date: 2022-11-22 11:41 Normal [facility] Consent Formson 11-09-2022 Consent Forms [phone] [id number] #[email or web address] Normal [facility] Coding Summaryon 11-01-2022 Coding Summary HTMLBase 64 WbugviseMZd0zMx+PGhl YWQ+BE2JSUEhI98ckODr wL7YI4pBZZ4OYEFPUQJC NF2MMY4fzDP6SAvtI6Jp biAv JfobwIApCB28YId2IKS1 kOecZJnahO8vdXPiW0c5 JrDvQC19lP69QLlnUCFn WgF5VaLtmmrakWJo H8guHxRekAZfZag+PHRh YmxlIHdpZHRoPScxMDAl BbWohSwnFW5hSg8dMITs LWNvbGxhcHNlOiBj t2vySOUdKRscXQ1prWld R0EgkOS0NCJnw1y7Zk44 dHI+SGQsPAS6bMhoCFom n871VhUtz6lnCUJ2 uPPlZLcwTBF4U20qb6M3 REPdBRPuUTC5kMI2fQ9m mApmxdelJ6WryOQoYfC6 HUW9kEIgrC2fsJbm hkwduI2eRbd+P30LTC0D EHGCUJ5PSnc9C7PsZitf dHI+BQ72LZLdCI70wPUa qRRet2suaOs5NeHu FIReLJP4oJxaILbuh0Om WLGpH42hyXAvf2M1IELi eAtvyTLxMcMpbEX4gX8s MCfbnfspx0yzyeim Heinu2cmol35dG75D23j NGntIHKbTBI7WRKiHWHt mJsdot3mgZ5zUq6+IDxj o7btw9pfdQm0CgKc DRSxavPlpOzuYPI3k9Ks An78Q6CueVflj8SkIun1 ez34fBRnb0R1jYF9SJem VIJbnY7aBNehRyL9 ETXsAeBxzR28pVDiGNuy Gf2ecKmhrGlwJS1eFKLz skgkUEGaaE4xTPZhvATe yZuvCP0dJHBbxnui f792XmFcEJQ8AWSdmKOa R3YuyG4oWoDfUFNyMXSp P1IbcRCmUYqfX244WTnd VyH5RWAdzpXxV4No WJCmzBxpQbM1c6D7Sv4M x7OveodpHCW9OBcgRLAz RsM3FaZmBaK2I0AcZdo3 GYAerSbuAP1sX3Hf BJSsgocvqvsjeCN7AAWe TEXofF68vWVvBZliCb8a s6R7x623ZCBsFBOadO65 Tu1lkQsfNKMorXJA bH7pligos7isyokuUnUl IFWyJVt4UBo1RKOajQxy VdGsNPT3OuQ0BJN2sLVv jA6raIclrjfeeR6f Oyc+E25udY1cOYM7GKI7 xcotVLWsbwZyCW05AZ64 P0RiOgzedBHmbUN+PGRp hrQmjQrsIK1xJaDw a5tvx7GtFFfpQ7RgFGBo DVdrKcx5XYTvLER4hCM9 iP5sEUNiHZbhu5T8pKA4 B0TxhmCjpo3gj0tk HODnCIpdN03xaLIis9V8 IBJaeXN6GZWnxEifEoYd pU39Abc+GDTgtWexw4Xr Qobhn9mpk2pjyFu1 IjMwJSIgdmFsaWduPSJ0 a2OcCo76D34cBJpdTVOi CTNsKOCfYARixDtfow8d nU6uDg0+PGNvbCB3 jDM0wW0sYCEsLjT5SQcl O355CeRbwNAlWkobs3qb n6vtoJs0LvAaYLGkusBa wPheRMA2c6BcFd83 G88cOVctPHTvQVWfIYOf WANppWyscv4hmG4vXc9+ VA8cq7kzzc66iV37sJN+ GWNfKPC9mVqmPIyi OPMfjO4eSUpwWcA1UWIy QjXszJ00tJWeABauJx1n bOvcxVzyVR4mIJLrnmva l120PxJij8ekRGYt nAHcUVhcROW1G17fy0G6 RFNwWEKqKBV5nMT0iQ4b bGlnbjogbGVmdDsgdmVy qMnoDMowGKplN882 IHRvcDsnPlBhdGllbnQg WbNxTAj5U9ZdPqj0DTYa eThxNI0mrCQmMVxvXg3r lBaqpKooPF7cNTKc kgtzh886SqUiq2wmYNGe dJMvFDaoMOW7R04gx2O4 OWMfZUMfNEW5qYA2fT2s bGlnbjogbGVmdDsg fvIlhJxrGRmbFFrwP683 IHRvcDsnPkJpcnRoIERh lKY5JS51RY41dNChc1I2 wCN4A3CwHZEwmhpo pcmcxYM6QEWvEXLzzU13 Hi4hfPkkZo9xXHFvWTE1 HEOieYFaH8AwsB4dHsLj HRQpRWBsF9ScdXZj OWeaK287IGucCrC5FIBw xqVdA1CdUIXxjAmeGiL5 a8I5Lf5GR1V7XE37VV40 rONff6G3lLZ8B6Jm QKZlpsojpwnrgRR7LLJf VGMepQ22Qz6wfBgpZo6e QNUlIEU9MVFtiWGzF4Kd yG9aOmJsMZQrYYEq Q7LijYMhGRvjX241BExw SaM2OBKrpqXiU3VqKUWn zEqhIrW6f4S5To4UCCo4 MF98FM32bAKqp3U6 kMC2K9VkZUKzkepibidk xKH3XAFnSWLhcX20Gi2l nZekHz1rALOkMBK4ZZHo eNDtL0AuxF9cGvBi MPGwWSKpI6HuhLBlLVkh S519FRqwAqE3BDMfylKo X4HkENEezQyeDzI2a6Z7 Eu4GPXGnWB10IRD5 aZG9WE20KA50H5UzWjvf dGFibGU+PHRhYmxlIHdp ZHRoPScxMDAlJyBzdHls UF9dQa0kZIBkJPTo yKmvwLOrPoDga4wkGSSn CQseXE6pcKdgB5JvrAB4 VQNuu0h5Nq07U14fM8Rj dXA+QXPfnDB7nIK4 nQ1uIjJeRuK2FVvoR165 DqRiyRQhWlduz1ylx0ji bZq4JsS1KQIuxuUsfKet QWE2p2PwXg51L96k IHdpZHRoPSIxNSUiIHZh eDlsvj4szB5jKj6+PGNv sLV8cBW1dN4zXxLaCfH6 ROojG304QvQefXFf Mlqxr1ohv2fuuWk7AbFc XEJkhdPlvEprVUL0n1Sg Nm20Q3QguAvva1McKmk6 zd23cOJou2M0bOB7 L4JtXUPrpgkjhKUoxYbl EH4nFOSjfllvDQRriS2q GGOnA0d9BrIkHeV5NDzw T9HyvfF5CVQukJBy WEyzDKO9A34xn8U2DESy AEYtQHF8fAG7jK4ghCyq bjogbGVmdDsgdmVydGlj LNnoBLhcF109MEZu lMhuSYPhgP9iXLSaiJCg tHpvOS0rSGRpzldoGyaK KQFQG86YOVLGR4MWOS29 L7WbFfr2RCXkeEka OL8yfBPfZPlnXf6ozVpz qFumQQ0bUBLevqakHLKd fV8aKEZjaFHvaBlxDP1m KJKxexvik626LpKr RBT0MQAhsHFgO9QczG7y MnHrOSXjAODwS6AyiGMq NJxfM913PVygYkT8WYPw pmOnI5CsWCTrbRvo UcS1a1S0Kf5iSd0aOo7i QIP1CB64BB44xXEkr7M0 fJC4J8LoDDCyraefahgz uHZ3SMUmTWGhfX03 rAPxAAkbQb2gz5Q5s921 TCInSYAxsP79Cl7awNnn QUHhhURDkG3gnimsb4vp cjogIzAwMDAwMDt0 AAt2BGMzmEorIiVyTWC2 FsP8MKA4aNBhyM3ifUsr rscdsH6nDab+ODMgWWVh zpV7P5HzDkh3YUXi qAgdBR5ycDUsVXxjYo2b iHmnhSnfYZ0iUUDgtonf IQCduW2mZOTldMCzuWys RG4kEBDfhmame676 FiCoMWX9UOTedDZnD9Mp nR4vGnNyWMRdGLJmZ6Jt vLMvWSetW086QWbwDwE6 XNNfmhZlB3YkIOAn dEgjCfP2d3M6Tr8BBL5F DAC6U4YtWir2GWZqwFrf VF4xtHHlAHsqSf3duOqb vBgkVM4zZPUoqwga ZATepV6eIWUwcEAylBrw AZ8tBWUenzaqj027FmHi NEX8NCJutVTbS6BzdR8w PeAyLBZmZSRpM4Ec kQNgMAetI902EVafHgS2 NRSxbgJmV3ZfAALtxCve GmV1a0E2Be2ROGhpdUI+ PN59cg58J3UzGbdg Wsp2BSWuSJF0sPQ8zC1x UVOuSKqqy7R3gBC0I7Ek hrFkzh8bu9dbKDIpIOmn Y29apYLsq9P5CGNm jDN9SVZilCabTmArwX33 Oyc+GYIecTviz7MvEyah u2esb5qdhDk3ApWyWITu zyXizIrhQMB9u9Tt Od88C49nOEnqHNBxVZNj QBEsXKNsnQyrab5nwX8a Ii8+RHQfaNU2hHC7uA3s RvRsBaJ5KOjgQ651 BqDwiQHxXjcfj5vje1ve nAm2GpPrYVBwabAtqUud YHI5j8LzTj41C7WihApd s4UwPnb6te94nZVh d6C5uDS3B7QmYBVquqjq wMQncRjnST2uYCOulech ZVRbbL3lHZIfP1t8JcMw BmL6IGakE1EhxeO5 VKUabKAqCKIlyOOKlC6l iyvvz3jnqnhuZkZhMBGw SOp6MKd9KOFdqJdrNwXf IFO8GlL6ATG3nBDl sG6tjDxntbgopH8mShe+ PEg5x6bkaDStGQ0lnEA1 GD92GR54oEOat5X9pPN0 P9PfUFJbqggtjgvv aBU6RCPdMLUdjN58Bx9z jUvsTj1hHPTcYXY8JLUy mAQaV1EekC0qCiTaLQOf QRGeB2ZtgKUtXWkf O688TOddRlN1BTJadfRj Z5BqETVibUuaIvY5y7N6 Iq3PQC34OU03XL20fYSm r5H4vUO6E9BcWCLs drpdprhavMO3NXZkGQCe nA97Se4skOlqXh6oRQUl QPT5TAXqcBElY3XnwE1x ImUvJFRcMRIwC0Ln tUYcCIksT016NFokDbF0 HBNgyuLhJ5EzXGLfkThz SzE9y6J9Yn9RCi70HW62 SJ02gBAzk2Q7qHO1 H6KlHIQwlympimdzqTO6 QCHyWEEvpH66Lz8zdOka Lu2pUIVgOII0SYZatNJy C1WvhL6jNuWnUPDb KKUmO3QxnSFyUXhjH265 VFgaPeK7WXPqdaWxM0Rs EWOuhPryBwF8x5I3Tj8R ZCyecxd7E6GkLrti dHI+BI71KWOqBI94eAGz wIIry5zfaNt1DnWjKWEb WMV7zWzfVOzji2JvHMIe M47xvPEgy4R1BPUr bGx (more content not included)... [facility] Coding Summaryon 10-23-2022 Coding Summary HTMLBase 64 BwyrlzeoSTf0mKb+PGhl YWQ+PB1BUKXtZ76ouSUf vG4BV9zZTN7MXSKECNVB OX0VPX6iuEQ3EDmlD9Qc biAv SkldzBEmRD32YBq2NVC3 tXyqWDhuiB9eeJHzA9w3 WwLaCZ59iK75WVftAUNd AnW7OmKpmqyavRUn Y5pqDjEtvZAjIoc+PHRh YmxlIHdpZHRoPScxMDAl FtEklQwyYM9sMb5jHUNs LWNvbGxhcHNlOiBj k8mqEZFhISpwXB0bxZll Y6GaoLI1AAPjr5f1Mr34 dHI+NJIkPYC2yLsjQOgp i369QrMwk0pnPNK6 wDEzSOueBHS5I70iu9F8 FMPeGOTyYPA7sIS8mU0u jGtbkcvxZ0BvwQNdNsT9 QJS4gPGndK9dsEml bxignD8rTgj+G37TPK7T JQVNUZ1FBvo5K7QaXqzv dHI+OM69CFVmAF64hIYl eGVtz3lqvQc2DjUt DAGwEWL0fCstBXmli6Lm JPYgX94dqUGxl7O3DMSo tStyaBMdRdJryLU0rB0u CPgvzwdky2bpltjn Kjbdj6aktw13yV13L11k AAkdRKGuNGQ0JUFmKJKo wRbzqs0vqC7sXg0+IDxj w6gqg3vqiXc6RrOi NATbnnJzfFbkTHU5t8Ye Nf65L2BrsDahf6JjCgx1 oe44tMWdk9C1dVQ0AIvh TJXogC0kRIuzMcR3 QEFbUyMrcA14bUPjTXcd Vr0dvLzvmRyeKE9eQJWr eklgIVUhtK0pFTFgoAZv iAydMS2mTMCisssu v275HqReUPT8LDKnyYNn D3OyeL6rGpApSPUaFFKz B0BiiAJzQYenM062IZtk RjL5OAUwygDxJ6Sw QGKsxKcwIpB5b3O4Jd5A q3BeywtbZHO7OVmkHFSm KrQxStVoBmA9F2FvKfk6 XZRjaCibRN4oE7Kx KOInoovtlfxgrXN5QXIr YFWxtQ57iEGbUIrdZs3g l9Y2p461HAPkKTBupV22 Uv4guLajPHYsuIWP jD3jdkskk2ltdyjmXvDf QIDpRYv6LBb6BLUmwNxm JsAyYUQ3VaA6LXZ4rFGd jA5rcUsprtbrbH5v Oyc+J80ncS0iYGK9QKN1 cehmIDEtieXsOR06AD40 P7YaVguzmBNqzEE+PGRp byCuyDfpHE7aPiDn r5ozy6PtEIodW6ThXGJd UMmsDdw4FFJvTDM1iZG3 uZ4wDNOoHBonk5X1qBO0 M7OwzeTunq7vr8ge QKDzRYvlS67fxLCxa3K3 FYUyfDQ1OLWauUrxJfGu bL69Njw+JOCuaJmyk8Ks Cshiy5zrn6jwvIo1 IjMwJSIgdmFsaWduPSJ0 o5XzOx86Q49zSNmlZEUf LKBkWSSeODQwyRejsk0q cZ7mXw8+PGNvbCB3 kLM9bP1zOALgPoU9LGfe Y441KhYooMMjGfwvl1fx o7jdxHl4BdChMWLnacNe gWnfHQW6h7YqLx49 I70hGIixTKUmIMGgZSJo SKRkcVjtgb7tzE4hEm6+ ZF0qe2xvru80tD69uND+ SDSfDJX9iBdpVWkh RFQcjF6fLOdfZtH4ZKVd JwUymK90hYIgOMfyYz9q mEbxvQseUQ4wWONtctzl h533EhTmy9zuMXPx zPGwEUjwQMU0J45dx0J9 BRVbDUHzYXR5eUI5aW0w bGlnbjogbGVmdDsgdmVy mFqtTQrkZEhyM845 IHRvcDsnPlBhdGllbnQg JyRjQPm4I5GnLln3LDSn bDwjQA5egDHoVRduZg4g hGggrBqqJN5xZFOx akako224DeXuw7zqWDXn gBFyXLwzYSK4Y08wy2J7 JAAxBEQjXID5hFO5yH2k bGlnbjogbGVmdDsg zePvdCylNIncBLekY238 IHRvcDsnPkJpcnRoIERh oJY0HP06TC90qCCsj0U4 cYI8O0HtURCnzzrl kahkaUZ5IACwICWgvY77 Yh5ijMuyOz7rMHCgHYP9 FAPccIWpZ7NueS5wYaRj MVZzSXFlR5QsnRWy UFvhV642EEufXiB2EZLt ibAgU5CjDZYbrUspMrZ1 n1V7Mt9ZW2D3AH96CN91 iPPhx6M7pML9U0Yu KTQhygaccunjsLO3QWGs NHKqaH12Xl4puSbcLn5o NSFtTHG4EZLkfTNbG9Hv yF1yFjWfHTUrWJWz N0XzhPLhGXxpO682CYle NcK4OAYggiTqZ6ZkCNGl mTxqBrJ9c3F2Ko5VMBi6 VV48QX33bMLhr3E4 gVB9N2TkOMRnfjraeunj bRF4OQLzSUNzpV56Lu9o vCpfQq5vDEMmXTL5YBPd kCNeQ5TteA6xLaWg TVAvMQYpW8ZycCWfDWqa W925IVyuVyD2ROIofkUv G5EpPRVsgVnvMsV3d5O4 Wq7LJYJfGP89OLS7 qLL3XE67BO99G9QhLcrl dGFibGU+PHRhYmxlIHdp ZHRoPScxMDAlJyBzdHls SY2jHd1uGQAgPSIr jZakvTPkHwRea0jdVKPt JGljNQ4ujKqkA6ZsvMT0 WSPov6t5Ef78Q60qN6Ez dXA+VDRtvBH2lNK8 eU5bQlWpQcU1VCdoG623 TlRcuYZoNxzmh3ssy6gv bOg0AqB2FMHytaLlcGlg DVM3z9RaFd25A30b IHdpZHRoPSIxNSUiIHZh aOycmf3ryP9aBd6+PGNv uQZ6oJL8mI4cVjHvIfR9 XYmiC341SpRqgUUb Oxkqj7dlv5smjQh9WqId HGUssiCcyEwuGPM8o6Km Nk78A9LgaYvjf9GwHkk2 ig45rMNch8V1iAX7 W7WtOXZyguqjyJQliIei IH7dULEkfpxqJOEwfI2a JONzQ4x8FnGmWeM6JBbm B8OofvJ2XCGcmSBf KJftNPA8S91fo5N1GBWs UIJmHHS4uPZ7lR8hcDpl bjogbGVmdDsgdmVydGlj NLapVXhaQ109QDLq oMrnGWKghI7cNXLkeRDp bTazBK7dHKFpeaulAwuH STDLH95UZFZVH0NUIU72 U5NgGvf4PNTwdAvs RK6ziGFhOTkeGc2ihHhl xCghIC5cXULyxpcsZATs eZ8jJGEqtLHncNpmAY0o GBYeqryrn254LwZv WBI1IMOdfDCcG3LhpS8i UqWfCTUaLKRwX9OziQLq GUjvX521TFzvQoD5XVGq knJgR5YcMAFgoMns GlM4r1I6Rz7lPq9zBe6h IEL0MO10TJ38zNMxt4F3 sFF1T3NzCLJbccynmnsg hWU4ANHoGJJqqU22 lWRzTIsxTn1we4H0d036 EDBvGQOghG59Xp8fnLwu VZWtpLOKhK4dkfgmy2lm cjogIzAwMDAwMDt0 VPq2SUAiaKzpToXpITS3 ZtX9IUX4lVTfmJ3xzIng txjnmE0rTqq+ODMgWWVh mzK3M5GsKks6VBOk wFexNC2wiMDrJKlgGp4d vLvqsYhgGD6aGJNfsywa QVXchQ1fYVLdpUGnxCes GJ7gNYHlschtn175 SwBoWXR8TENcxGKeA2Cf mM1oNbVdMARnOUOuJ1Nc uRTeERatP704IStnEtF5 NZQlhvQuZ2GvICZy uEvgPbH9v0F9Fz4NHM3V QDM5H0GmCgm2LXXivXbu MW1oqNBoSFbdOn8pxTiz wGdjOC2xXCEyrpuw ZOIslM2fJEXujSPigMnw AQ6cOTKmmcvuk060SjZr DZH7KLSgoJUpB2KgnN9d ZgIySABvEMVrB6Hg qIBuFCysW954VJvlVhQ6 CACunaCeW2NtRZNwbPez RtR6o5P0Ze0QPOercKH+ VG58qu92L2TfVdkg Vmg1UZDlXKS4gPD1rX7o ETTwSOssw9I4nDK0G5Pk fpXaow7yn2pbDRFdCQov M31fvHJpj9A4RMAd gNQ1LESraNmaShZjoI14 Oyc+NGPjoZdsq2LcDhnv u3jtd8syyCy5CxYlFKZr ilFzoCzqTCE0g8Oy Fe28S03eNZziYLHtYHZr JNBxJAIafSxshn2euG7p Ii8+JVOqfCK7lYP2nN5i LcTqKmS5KArgG073 IvDmuCRjJcgin7wkj5tc aWj6IhSvOPXyysGjdUrd ZUP4g4EgDm66K2EfeFno b6BxCup5bx10vYFi a2F7ySC9L1IcAHZfjhks gXQrcZjrGW0pIDQstcqr YRAryZ9aMXDsR7z8OyOt TjS4ZSodV0VuhnS8 ICOmlDSfMRMhlRTHeB6d lrfhn7tqbiflJbJkCAYh WEw4ZPf8RXKvtAqdRxQd GOQ6UdA5EDA0gSLy dG9iiGkvwhwxqO2sQfx+ YIp9p4cwnMLjDX1nwJA7 IF61AR78nJGaf8J6pUC0 S9EkGJWzelxnvops jYY8YJCyPHHriA89Kp9x xDviVc9bARUrVLG8EJKc rKRoO8EpwC6jXcZtHTXf KDTyE9QntYDsHLhc C542DDfeWgW6PBLneyNj B1FwWEAodRtwIgP9c8P7 Br8WPV44SS81YV25tKMf m6B4xWY9J7JzVZKw vrvcjewshCE1WQBdKKNb zS77Ir8cwGcnDs7nTMXv AVF9ARBapJQfO7TlzG3v MpTvAUTjIKFcZ2Yu pJTcYOrjT019IHqrEwM7 GDBzbuMeF9ItBLOnhYap RwE8f4N6Af2WXm17VW09 IF55zYSzn9R4tRZ3 P3VfBYJgvenkfhmlrJB6 WGTyLBIuyT58Bj4gbXgw Vc7aTABoXWY1XPUhnMTl C1UxhD6pWpToDKYp XTLbW3HzkLStMTwkP246 CBasIcS5IYCgxcXzM4Vm HQNwrDlvCqS5l0E7Tx0J UWawvyj8G7KgYnyw dHI+JK04UEBtPT55qFIo cMCaw6gdaXi3KaZlNFZi VVE7aJyfFWgpq5PaBOLd Z92aeEIyj8A1QZEn bGx (more content not included)... [facility] Coding Summaryon 10-15-2022 Coding Summary HTMLBase 64 RpymlqusKEo1cLj+PGhl YWQ+BG3AFDSrE18kyTFm yG9XB9mNRF1IELWPSLFG YT3NNK8hjKJ4MCweI4Gz biAv LlqkbTWpTR82HRw3KZM9 gXuxTWfpfG1pwEAdE1j2 PiWnUA40gI62KHznKCTz QyX8OhYwfefrpJUb Y9brZpDrpDHlLhd+PHRh YmxlIHdpZHRoPScxMDAl AaOfuFckCU6aLg4fQBAq LWNvbGxhcHNlOiBj x4zzXPYkKOvzBQ3brJgx E5RggPZ7QQIxu8p3Wf01 dHI+CKIeQJE5yWucNZmq m801ZfSdr0tfUHV3 rRXgYFguJHC7V74bg0S9 EHLgARBkDTK9tLO9pA8g zLhfqmuvO3CevSJcPiZ5 JEN3jDFknC7yrWhz xxzzlB8wHir+B75FZV6M KUELXU6UYqm1Y9UvRvhx dHI+RG16LFFiSA52sLNm hMAck0xrqLt5ZePb VJIkHRZ6zMxwKZeec7De ITFbF34toFCfx5O0LMIz pCiaiTYpWoKoyUA2nZ8v CNtvnxqvt0apqjin Kpwbf4bqmk15pE40N04p CZflUTYhGWV2PZKmIKXb xYnrbo9dmR9iUq8+IDxj o7aap5jqiLk1AcXr BAGcqkYflNoxSBB5z7Vh Cq98Z3SdaFoxf8XqXgb7 fi45tHYdm3N7mHG2TKub TIGiyB2sYBtfLxI1 KEEfBbEzuD08hPVrEEch Fg5wjPqspFcgJR2cVSCo ijdwDRJllE9pKWEweIIb vTziVK8sAQSfpnvm f562GjWpFML4BOQobXFd J3DlxN3rThQjAZFnXLCy Y6XlmKSvRJtxD516YQra JvJ2NFJyrnHnX7Aw HDEfdAjyHuM2s2N2Cm0A o9AxwvynDDB6RFvhORCt ZrJqCsZsAzP5X8KxNjf4 SQZdyVrqEM8gG5Ek OSQytezrpegxiVR0RAWg RSHguR27fNHzXLxpVp8i n0S4m478WEVsOHToeL69 Iw4unFlpMLMyeDAX cW5qjwkmx7zivrulGaPh DOZaKLi7XSv9IDHcaCrn AlSkPIS9PxG0YTV0mROm uC3xaTkcwmpybI8d Oyc+E20jgY1yTEA1GNN5 ahfmAOIcydCvGC60SD29 P3NiPqxodWEhnMY+PGRp loPkcWglPR5cEiXy e1pyw5ToWTxfC3CzDCUk CSsyFtu5DOAnMFW1jKL4 uZ8eBXVgLYkgi9W7vFX8 T3WebtCput6ym9ru IMTuCUhpS92qhHGgf6E6 FULnoYK9CWZteHcxCuUn iD13Svm+RDKlnBivw5Bd Memfh6cdv2nrjXc5 IjMwJSIgdmFsaWduPSJ0 e6DjCm36M96uHXumBCWl JXNzKFRqWNMifFwbto1x pN1rXu8+PGNvbCB3 iZY2cE8iDHTsAtY5KYdc I169LbQxeWJjFjjcc3mr g8pajTf8SnHeSAAqqhHl xZiyILC7b3UiSa62 T44xGQjrVCRpJWIfJBXn HQJyvKgzde4fzP1bYl5+ PF0hd8niyj61wH05dCQ+ MACoVDC1qLkpJEmg SQPlzB3lYOkwMbH6NCHx EcTaeA58xIHnGGofFy9o fIzwjVtlAT2gFKJchxsb u618OqAxq9ziGLEm oLSrHDdlUDH8G49nd5X7 GCOtNYZzSVA2oWD9kL0q bGlnbjogbGVmdDsgdmVy kYbsQBtdJXakC597 IHRvcDsnPlBhdGllbnQg FdXyOIo3C2GdVrk2YLIl sCtfQC5deDDsGDpvWw4m gFnvwWyeBF0cZZPy zdexh702GmHaa1kiBQPk lMSxEPpvUSF4J03ts0C2 RWRaLSXaSJK9cMM9jC5g bGlnbjogbGVmdDsg lyIkyPitECufJMmsZ546 IHRvcDsnPkJpcnRoIERh xGF9UF60MU17gTCej3U2 jJM3C7XpBGCmdadj reruoHV1EZXuLBFolK33 Wx3qoCrrGa3qJJWqZAJ1 EIAyeAIxH9BrcU6rBpLs ARNwZLHfQ3UzbRLe DJweR908DOodXcB5OVNk vvUqL3BcPABqsMtuXiX2 x1O8Zo5MF7F7RA22TJ52 hEKuw4H0xTL7O6Ld ETHxhumpjlyqxTA1TEXg TWFzqL85Kv1ntPnrEl3v SXBdMLL3FTBbhZGaD8Wb yU9cGiZfNRMtMHAl B8NjsZUrPAktS962ONpw ZjU5AHRpxsBfX2ZyKUBz nVqlSkK8j5K0Dj2XQRc4 PV03SH18yNGgb2J0 yPR3R1YaTSXsaoyizznw pOW5YCTaZIFwdA17Qz0u iJpyOb2iMERoIAD8PIDs gCEvP5XvwB9uGlRj JRAnCIRcO0EpuTWlOHdn R679OKjcKrS4KMCiloZy M2ArGOQeuHznGfO2m5I7 Sm3LCIWkFQ63UAV4 zCA8XP68HF71Y1ZnTkaq dGFibGU+PHRhYmxlIHdp ZHRoPScxMDAlJyBzdHls AQ9kJy0jUHJrHYNv mDpaxLZmHdMpn1cxAWWt PUirMX6brOfeF2CsoKD3 TIMwj9e9Tz38Y53uL8Rq dXA+FALycFI2gOA3 zX0oDqKqIhE2PPxtL429 NxKovMQeLtnyi4diz4ji lPc1IgP9NFKjtuYreGou EGW7t4BgKg96H14s IHdpZHRoPSIxNSUiIHZh jNptma7ccH9cQz3+PGNv iYZ8iFU8gT2jJkXcTgH6 YTwxD610GeMfbJWz Lxyfv5xhc2gmqAb8EkFz KPOvwkYvdIeeYSO2j4Wx Fz26B2TwrSvzp8OyMpu0 gf59sPJzg4D5vQR5 H6ZkQQLrymvwhZYgkTaa HQ1sLZWteknmLWHcuB0d OCGnE8d4WtFpBaE5WMyg Z7RkatV6SDXqvTLt JVapWJN1W96fv2T7IJJe DDPcQHB3nMR9nR8qwDnh bjogbGVmdDsgdmVydGlj BXvrEUjfJ718RSHu bVzsADZmaR4cJPWimRUb zNwiTH7kZSFldafnJysX LWXJI72RYZCRG3JTVV35 C3RsBil0VGModYin SQ8knZTsUAukOm6gdRlz pCxuZX2kBDDhhuyhCKXf pX6qZQBxqMMgrXflZD6m NQPeyvalp712CwJf HOB3FSTmrRGbG3JelG4r IiNoSJErJFDbM5SnmSMo HAqjY893EVbcLrH2TXAk liGwW6ByDWRtgMxu ScT5x9P6Uo7dVt6nUn5a EXD1IA27GS03hJMtj3M9 tUE7L4GcLSHtygkwdadj iJA5GELdHFOnuQ05 fBHoAJgqBj3xc0I0i340 PXKaNQDtxV64To0tbOgf AFEmrADUoV1tnxzfx3ov cjogIzAwMDAwMDt0 QOn8YVSneEeeKzRmFIC5 QaM8UJO5jWRyvC3cbVkg jqobbX6vVpq+ODMgWWVh hmR3B2OdJby9HNDp dFmzZX5qlJKeAFkvEa2u pBfrbSuzWN8oCYCtzwhg ANBrpE3kJGXozSBmkDel TO9vVOVbajuvx188 ZkKbNEU9HKCwzQLhF8Pj zP4uBhXpQWXqVDOdH5Sc mRTfZBgjK376TXydGdP8 LEPluqSxI6HkITIk jKihFkJ9g0Y5Ua8ZCY0Y LCW3F7XsUdh5QGDivTxk PL5qpCUdIXaeYr4joMss aDlyGB6iZWZuwnuw YHSbzY5jXFOelJIagHng SV0nOWCuokpop472YrAq MER3NDTaqRYcW1CtiD4g MaAfRPYtYHQuQ7Th sCEeSNezZ940GEgnRuS7 JQYbcyDbH2MeDRUcyXtx PlH7v1X0Cr4MLJkpoZQ+ NJ20kw61T2UsTggd Qae7JRAzJUH9gLC0qV1i ICUwNHhcj5W1sUC9I0Kt gzQfon3uc6jjLVNcJPqo P34psFQdj1C7DLOd bXN1TCNsjDksZyEdvN16 Oyc+JVYjiQdrc8VwJeni r3jpl5yilLp8RfIrJCBv pxMzfWdoUVN8g4Zo Iw97U55fHGpbBTEqNPDm VGOyEWJcxKgkhi9qkH9k Ii8+EZIlkZK1pXZ2gN7c UkRgGnU9FVqdB880 XlWizHPeBrbfp0ija5ez sOn6RxLqDUFkajWugPql PNH9w2PpBw57L3QnlAut o5UeJab8mw47xFYe j3F6fMD1X5KbZUJywitq kTLqfIvqJB5oSXDfzafu DFDhuA6rQXUqP8g6TbCq KpC3TBtfS4QlwgJ0 JBBkzMRaWBWsnMRUaG9q cketo9ucundzJvWiJOBi ANf6UNb1HLZjpDcyUhXk ZLO9AfH9SHU4nIXx gJ7guWdthjofcE6xWax+ ANo5v5daoVHwLS4mdHI5 QY75AV67rQTst9H6zEW0 Y2GxKKVwlrlnbxet uOM1LZXyYRHsfR48Ys3b wOkyEn0zECQfLKX6SBEe rLVdG9OygP5bTyPsANWi GGZzE1FbaCWaGIjx I777NBqkFsQ6TMInkjNa E9UsTGBxdBifWxV4y5C7 Jr4VGW89UN76OT61rEMa v2A1dBK0J3ErIVDg cbgtfpahsBD0ZQOqTOHr xE22Ts2rfPvlLk6uJZSh SNV0QJNwbRWpN2DwoL1y DwPqJVCoAOXdW7Ci eOYdJObdD700CMxuPyC4 RZOxomLxP0YgSWOtiYyc GoV9w1M8Nm2GDz13QK39 HP87aIOby7R8wVN6 R1BmSDBrmlsfgimbwBA8 BOBcUONmeT52Us3ujNbw Rk4bFBThTWI3GCVxeALb B5HddK7wOxHpKUSd LHSeE1KzyGGdFRutN913 ZQrySeK9MUSpwlFwK3Zp QUSpvMbrCwL4e1L1Lk6Q DUccdlo6W3HtIxvg dHI+NX60AYPvNR56yONe eKQpd6pnlWa5TjLjCBQk NEU1mLbwXQyrr9TcNNEm I78jtOCmm2F3MUKb bGx (more content not included)... [facility] Coding Summaryon 10-11-2022 Coding Summary HTMLBase 64 NvtnyniuJYy0rOu+PGhl YWQ+HD2PWKFbD55djJUi lL8QK1fVVX3NIXMLQDAB WK4IMX6wxWZ2BTqnR3Fk biAv YbgtcSPsCI64HXi6BOF4 zZsaHHoapC1seWKzP6g8 EwBjCF30nR41AIfpTNVd IrU9IsKweacfdYTz X3ekLzXbiYCzHsu+PHRh YmxlIHdpZHRoPScxMDAl PgKuwJkpNK3kGp1eYIUo LWNvbGxhcHNlOiBj d6anWSZbBMpaST5noZyg I0MgpZE8KBNfp5f8Sa68 dHI+DXEuVBF0fQetBBhe r066CbWpq7zgMVQ9 cSVoHRkyGCL7D21pp6W4 DUTcRCQnEIF9pXL4iA2i uEofjfheX1GcvVFoQjS1 YAH0pSKysK2tvNah fljucS9aKsw+Y32XVL2M WTPLSH0PLqd3V9WmMsur dHI+FH53KXAuKS47oICl rFTjs5krmVr8QpGx TNLrLYU4xOmwPQuxb6Zq AVMeB49obPSky5E8CHGb bSrjrQEoSnIskTO6zX7j XApsvepap0ozrida Hzcjk4eahk49yJ60C14r LElqFXQkPNB0RNUdCUPu eSglhq9sbA4gIw4+IDxj e8nxl0dysBn3IqQp QGLnxeJykPkhDSB2h9Tr Qh64T6PcrDrzs7JaYdf3 ms90hDKpu8O6kSK5XHmq TGCcwM3aUPlkHcT9 XKDwZiMfzF64wBOtHFfj Qp2jiMwldKqdPN1tRZAs rhxyUVQxlA7rCXKtyTFb hCdzYJ5pSSNcpiik a559TjRcCWA5VWYwvSEk Q5VlaW0lJdSdTGWnMAGy P2IltGOqDGbsD333LKda PoY3ZVZnraDuP7Nv JDMyyCnbUvL3r6X3Pk5B k9IuzkzjCOD6OPzsFWLt CsU6MtOiNbU3L7NnHgm9 LHYkfPwhDB6oK4Pu LFOogydjmyckkBB2HHLd NMFzsI64zNStXTirYg0p w4Z7e123CGKhNZZtqD29 Og9crNulKSFojKRA sH3ycpnsb6gwlzypFgIx VQHiLIg0GFm9VWYhmWsw OvZmPMG1SyU0EYA5mBNo cT5tiLfmdadfpM4s Oyc+Y59xcN9eVXD0GOH5 bcktQVYbkkXwTG23CJ92 Z6IlVcjjoTDhaSD+PGRp pdZlwTppAI5aPiDd n7zpg7FpMMkqE2MkFGBx NCkkScg6VZCpGRN6gIQ5 dH6iSYYdRFkiv9S7xXR0 D5QmnvSrax6xe0sr TXMrSZkpE52wtZGcc5X5 HISsqEL4JAEmdUwzLwMv bL72Etk+AZTttSavc8Eu Bzunt9lyd4upfQt3 IjMwJSIgdmFsaWduPSJ0 d2KlIn44Q13lJCngGQUk NWNyRCDmSRSfjOpzwy1l bD8jDj7+PGNvbCB3 tED4pU9jGNMsLyT9ZGuj O247RjNjcGMxPezjr0vi a9shqQh8CvIyOURkykAb rDaoQJF6u6WmJa60 J51mAGkvAOThBLUtXWLt EBPjeSvozc3siV7kQi5+ QM1mc2umlb93sF07kUE+ DQHqDCP0sLqjLCye TBNctW0wJSjwHwG3BCOi UzWjmH03bNDlRMlyKl0q wTrnsVseKI9zJMVjgwas p113CeHbe5zbGZLc mBCbDApiGWB5P32og7D3 FOPiZRJmAKF6qYD5kY4b bGlnbjogbGVmdDsgdmVy rEmbAXhmZAlkI932 IHRvcDsnPlBhdGllbnQg PtBoUCu7F8AoFqx3JCRx uEidQK3qhIMdMJsaPz4k dNcsqXjmWF3lLRIl tnwsn192CqZav8upUIVy kKDwGUjxBFJ8N54ic1M7 AWJjSYPvZGB5hFG1yS1r bGlnbjogbGVmdDsg rsMfeJfoNXujKSgfH483 IHRvcDsnPkJpcnRoIERh mOY8EM17RR07iKHqr6M9 cTB6F6EkECJcumcb nxhdyTI6ZLVoUJTkoF49 Uv2btFccVq7eARYhSTC7 BNYblVCzN7LjaM5yXrFd CFVhODPkI4IabJOa VLvtI152VKytSpG4AZHo roRdH3GsKPOgmAdtArH6 o3Z7Rp7QG5D4SH44EF42 gZGrt4Y4tRF5G2Pe IXYoxbthfdmjmHI2TQUf UGTcmF11Vn0ieQiuDl2t TEUpOZZ2JUXqyGKvL9Gi dM1vGkUdPDWaLYWd X0AfuZAfJZwcU608DFkq UpI1YIEufsZzD0PgKWGh bRviWrN2r3K3Xf1ELVp3 AP55AP38sJNpk0V4 fVD9I7GeEUKvqkeuqmci wLF5YLOoCNPilT52Mw0w sTysZt1uYPCmZOJ5NOBx vLFuL0JphC6tOpGn HJIsSTXrU6HafSApZQbv O895EExzRaH1OHGnekTp P7AtYAUgkCliSvK0p0E0 Zq5CXPAsNH91GQQ8 bSA8VA23BS09P7QxWmob dGFibGU+PHRhYmxlIHdp ZHRoPScxMDAlJyBzdHls OD7zUx1tAOZsKXKb mXleaZIaBhYgd9azOJZz ORwmTJ0uvGfvM8QyyHD3 DBMov8f6Rk19E87nK9Px dXA+ZNDlxSJ7nBG5 tO2vZtQdZdR9WOkoC791 VbHfiCDiGinmu7oyy7sz uYe1ZyF2YYGsmmEtxZkr EHP2b7AtNa56N12x IHdpZHRoPSIxNSUiIHZh vTloii0roC7nGv6+PGNv rOC6fLB7aR9hCeKeMqF3 JTqyH048ZiLneHLr Ktvoy1fqc1pgvKp2AdLx SKLqfeHgkBdrWQM3y9Jm Sq66T1ObiPucm3NxFwt5 rd16sHJeg2D7aGU7 F2HsUZKrwmotnPPxeMua UN6qZZTzrofyOFHjgY5s YLFcO0v0LiTdCdR3AMaa U4IycvI4CRDdiDPz CZzpHDX9J43bf9W3QKUh WWKaSKO2sZQ0nP2rcMzq bjogbGVmdDsgdmVydGlj NCqvVBrdZ439PHDv hWtiLEPlkB3jEKMakCCv nTncHL0oRFXivgtxJrbE HOLMD96RAKWCU4JDGR58 Y9ZvDpm1ZZLatWne QA9bgVUwCIfkCg9beZds cYjuSJ4nDWVbdjifEXDw mW5fQUWabFNjnMnqWR4b WPEtcctlv894IgYj LDR9MSRpuJDxM4UhyF7r LdIqVHWwUIAbC9RizUPn BPduD416KNadNuP3WAZn oqGxA1EkOLXqlIps FxG6e9Y9Cb9oCl4rNm8o IVB7NX87IN44eIRir0S5 rQZ8O4YfQGNzicxmatqq sAR4TKFkDLEazV25 xWCxTKnlZq0sl1Q4n651 ISHrCIGvlB36Lx6swNlx WQVnwKODgT8hhaclg2fu cjogIzAwMDAwMDt0 OQc7UMKduYfaPdJxUFA6 AnJ7LQU1eRPmoH8dvCqn dowfqF1mXbs+ODMgWWVh rkH0G9KeDwk7HSIm cTstWL8toGYkSUbsKx4q hCqfkXzoET8uIVZndoks LPMtcY8uWURrfBKukNrd GM0cVVPpwyuwr455 GuZeJRH4HABxrCYdD2Ow nC3pFaAiTXCmLDFsN2Uw vUXeNZzfG086BTavQfJ7 UNZnekRzX4TmBSIo fWayNrH6r8K4Kl4SHF9G BUT6D1MwZea3AXXyzIfk ZZ8uqHSqVErrJg7pvBaw oGnvLJ9oAUVcsbli VSIpfC3jBCHetSKkvDyy SW8oYIBoecnkj166ZoCa UVN9ZNCjzVNzP0LkrU2s NlDyFNLwGZNiW5Np sUHfOLnqI988PZhnDzJ8 RKMmqmDiQ9JcDZQwpNmu NkK4c1K2Zm9AEUlwaXS+ KC86xe94K2SzXmhm Iuy0EWSpGYZ9qYH0cR5s WPTuIPjae9R5gUO8Z8Yp cfMhaj5yo1toFARkUXxb R30biMYcx8H9ENWa gSJ1LGYrjGlrGjTqbT32 Oyc+SDHclRjpq0EwOhyg a8zma8sneXu8CuWgSOYj azCigBomPKF6q0Ur Qd57N17nMTlaDOJpISZk ANLuEZUauUboun7wvO3h Ii8+PZMltDK6oTP9aY7n OlKuCjX7ODnsM227 LaAxbBFqCrrbx3lyi0vr hYy0OtCdWHSabmMdaRmf AOC3k8YgBh30M6NttPhv h4HyRas0hv04hASk z4V2qKR2H6TfOADcakkk uIEgiTcbWS3kNJYdiuwe EMWokV5bQITvT7e4PrXq QiV5KHudV6LzegV2 BPDqxYVwDLYclADZbO5g jmslq8fspiheZtIqGVAb GBz2HOr3BPTkqWuyXhBm ENZ8IcU8INR8qMNb lK6bwXixwtgczJ5sFxc+ XGg9x8jndXLlXT3odEL2 VR79SB46wAHnz2L0lRG2 E0WcAYWxwbmljwfy hSV2DRUkALSwxO13Gt1b gOcqYa2uTFKtNSS2IIEj bNXsG6BisZ7jDrMfFABi TFXnT5DzeAFyPOdh N028IPlfWyC3USCcwlAb B8PmPPQewPsiUeB2e7V1 Cq5YCE23HK73OM76uPLj w3H6eED8J6JiYDJu lkgdnxczmKI8VZJnPHPh lC08Pu2bqDywVj7uTKTu IEP6VMMgpBKzJ2UutU6i HrVgMQZbLUPtW9Qn vGObPCbhO400ZQcdKjW5 MWVfqxTbT1BfUXJxsFkt IeD3x6K8Fb9XHm28XV35 AP85rTOez5S9eHS6 B9BdBUEkmlsewctufQC0 SPSlETKhsF36Xf4rdPjz Ok1fCOWeBOK0FVBuwOKl Y4IeyG2pTvCfKTDk ELSgP0CyoBZdFQrpG422 EAwxKyN6BAWcsgYbS6Yb ERUzwNniOmU2x8D4Lj7N UTlzhvv6R3ViVaam dHI+WR95GETjRH44eBIp lHUpl7ohgFf7TiCeONCx FAV3lFtnANclj0DcJOFf F54kxEUgj1O2FNLp bGx (more content not included)... Normal [facility] Wound Cultureon 10-11-2022 Wound Culture Lt lower [...] >4 Verified Vanc S 1 Verified Normal [facility] Comment on above: Performed By: #### [id number] #### [facility] (DEFAULT) [address] [place] [id number] Coding Summaryon 10-09-2022 Coding Summary HTMLBase 64 FazwkbiiTEt9vQf+PGhl YWQ+NB2UBGPzR45mkWRq fA9XE0zXDS8BNWDHFJYT EQ5BAO6cxOS7YVtdQ1Qw biAv BfyuuVSoLD88VPi6IEA5 iDseHGmwuO7dwFAgE3k7 GjPeDL55cI36WBwdXHPb OsM6GyWlcbgbwBUc G3gdTbDlqCLbFyg+PHRh YmxlIHdpZHRoPScxMDAl WoCqrEscUD8uSy4mGCAu LWNvbGxhcHNlOiBj w7piDUNgIAdlJU4ptVhh A8PkgPU4ZCUlx9x3Nm97 dHI+XEJtUVU1zYgnTBmm r050JcXeq6deHKK8 tIAjDRvkRHH3H10fh5L3 DNRxZXYcSAW5vRS7cK5n gHhuhvoeJ0MzmONmPqC8 QIH4kZCupM7ixSkr nkilqQ3kYns+V68MCO7K AODXGM6RMsm5S7ErSphu dHI+EQ91YBQuNL60wEZd aYTak1pnuKn9MbTg RKHgQUT5dXejWIumg8Qp KZAyU83tjRFdm3A5CFVf xPmreWEfLaBymGG8rY2i MZcogaaqw1weicrr Znvca5qfif03lU48Q14t RNotEWEzADM6FGYdVSPk yQkhpj4ilO3pEk0+IDxj l7som8xvyFx3WsVx PTOmkgJumWrmWHE2n0Xh Jo64V0RcsMomi5KwCly7 hd41iLZjx6G1pBR3NUdi EUVeyT5qWXhcRrG1 GDTgLjQzdO97aSMqOLxw Hw7eyRxwdUfoSW8nHQQz ypbyJIDfbU4vRWNpeQIv rIdqKW2cTITegyab d432OiApAWJ4EDKrvCIc X7HknC5uFaRvWQDpUAIv W7EnrULaOFvmQ639JByd ZaS6VERseqCtW8Yg XUUfsZwiSxT6f2D5Xi6J v0ZgoglxIIL9RLftSGXg JgU7FpSzWsH5D0KvDut4 PKXkhSnnZQ6eO5Ac ZMLyhiodcijyeQO1VKAv HDCyiM85cSObZSxuNl9c l5Y8y912TJIcGLPjkJ25 Lm0ewUvfQQDjuUDC rY0uoltyb4namwluBzJt TIYsZPl6DMl2FBCbtHxq SlObXOK3XkZ1TWD2iYQm wO1ldSqhosgksE7n Oyc+A76bgY8jWZB6QQD1 itknCTMmvxQwWC53WH59 Z3MlVxsslOItrQV+PGRp uxJttNtaBU6dWwEp j0tgo8OtMHxrC5TuZCEf VLskBnr1AFHvQTA1jGW5 gZ9qFBKpUZkeb8V3hUO6 T5AynoKfoe8by2tb RELcUPwtZ97uvOAel0B1 KXNltHX9ETOicYclGoSn nU29Naw+ACEylExks4Sq Zkhum8gft9hxuGw1 IjMwJSIgdmFsaWduPSJ0 d2EvGg88J59cWCesZHNl SFKuBVVtNNCkvLrwtg9l bT6zGo1+PGNvbCB3 uSM1bM4nVAUkIgQ2GMri A106WoRiuMObHghje5qu k1jjuJm6IjUpJOGjzsUv tNtxQLI2v9AlYb65 H42wJVbxRUJqMSMtTALp YRFsvBsfcv1vcS8uWl6+ FK6um5gbkp13sC03yCI+ BUBfGWO2pOabMNqy HVPnsZ2sTJjeKkT2YGUq AtUlkW00uSNgGCzyJp2x wHnwuHydTX7cWDBwosay h496VsCoa9zyNKLz aTZdRFqoPRF9Y01ev4T1 HJBvWELkUOJ4hQL9bA8b bGlnbjogbGVmdDsgdmVy xEkqJEjnBHvcR219 IHRvcDsnPlBhdGllbnQg EdJiHUf5Q3VhOvg7KIRb aYngVS3nlJOaWLsrXt4r zKgklWgqLW5mHPBh cbbev645YbJhf7zfGMIh qJBqEUrwFAS8Z10zq8Y9 VZYdNRMnIIS9tLL5mT0j bGlnbjogbGVmdDsg evLgaRnuBTitDZivT586 IHRvcDsnPkJpcnRoIERh iCS4PX93HK47yRVfp4L8 kSK7J1KzLCJczcxa bloixUA4TKKhYYHkrO04 Jd9feScjPe8yQSGaUEM8 JISawSMsM5FwyB7gVoOm DNVqATCpH7WbpIOq IHupK850AUizYlE6QHKe vjPxJ5SnVROtxTqcVcS4 s3P8Aq1PF3R9EH80PE02 lWFaq3K3sTH3R2Ex OHKegipareiomPM5YUPa YDMidA62Lc0qzPruGh5j DXMoFXX4SBHolYNrJ5Xi eO3iOhAnBFAhXQQn L7TgfPFyZAvbM497YPqy ZvW9IYPivjYuU9WmDVDt aPhhCrF6i1R4Cn7LRWv1 AK43FE12fXUjc8L2 lHB3R3UmOCYeuexaxeug zGX8SVFdKPTztB30Kz8t eHdrSt7cVFYgIDK0BSYv gZUmE4VlmH4mPhUu VNMpCQOpB8FswCXsYWkt G629HDtdTuZ5XWPnjdNe X2NmEIJtrLofFcH6h5N7 Iv3KHBTnUB06MMV3 hLJ4AT01ET64Z8CtMxgz dGFibGU+PHRhYmxlIHdp ZHRoPScxMDAlJyBzdHls ZT9fDo5yKFBwYKLg oQhcpUSrQdVyo8olKZJy CQovWW6rfVzcR1JemWU7 CJBlj1g9Lm26V05qP7Wh dXA+ZKUgfXJ9zUH9 kF0oTpCwCtW8BPdoP874 TxKwoQSmRcehm5izi0eb hSt7KbI8CDJrokFuwDht HKV3i0KlAs75M03l IHdpZHRoPSIxNSUiIHZh zRxtgm8ngY8iSh3+PGNv lJL2vVS5hH6ySwVmTvE4 IBuhL946RxPmwIDm Flxem6jic5rrpHu0GzPa PNSysjVoyYcnPBH2i0Bu Ok35D2RmqEyph1JcGqz9 be24oPUin9H6xNE0 E6CgXMFqizpqiLRrjHyw GR1cGZMjqdjiFCDzeT6b TRYlI2z8PxQkRoR2ARbe W8RcsyD0JXNotOAr NCgnSBV4I40xc7X8OTUx KPDlDIV2qZO5jB7iqGta bjogbGVmdDsgdmVydGlj ULjfIXktK081KHRm wFrtRKYycC7nFLCouUSr wDtuYZ4kQGEhbqndNuoC YVKBP43TSTDWS2NWYD67 T4JeRke5QRGnnUca MG1ymHVmYOsoCm5opRyu pAotXJ2tBPOlouwhKUMe vU7gBFKdfEYwzZwaQG0s JFDszcdyo664GqKu PHJ7KBHpsVWoP3UoeH0u VtPgAXUqNYKnV1LopXDi OWsiL518GZbjEgE8GIUm jaSvW8NfGDBzzVqu BqO6x4E5Yr6aYn1qKv7j NFE1OP94MU16xVNvk7C7 eXF4S8QvJXKxfafqysgb aJJ1XLCzONEfjY44 vHNfSViqMo1as1Q8l533 BRHcHNBssS60Lb5trIzv KLEsvZYXaA4homyfg9gd cjogIzAwMDAwMDt0 RCj1BNEgpNxgFxAeGKD9 IaK1EOE5ePMooK1qjXgq dmavbS4hLhk+ODMgWWVh pdM0U7TuAzh9PROg uHihFR1stUXkFQgjTv4m hZbyuTjeMQ4pWJHsjlsy LUQqiK9dTDRccUCawYxy OO4mQNVjpiaen261 KaNgSIS2BZRhuRYfP3Lt dU3mHsNvCJXlXCOkH6Jx sJVeQOioL038KUvbBxS0 VYThmvCuA1TyQIOe cXtuPyF6v8P2We9OFG9V YUU2J2YvJmm4CFLjrBei PI3uaANhGEueBs0qgPbz tGnbWC9qCCMkjrin APXgwB1sSLHwvRDgoHnf XS8dUQXmwzuuq313OiLx MNQ3CFCvzLBwS8IkbU5a OvRnSIKdEKQgB9Fg qXJjVClpO118JYdxQjH1 YGLtdyXmO3SdHFBjmVjf FnH2i7E5Rv3TZSzhcEO+ LX84qf70S8DdVofy Ncj1SBZmHKM4iZG8cA2m NTWuVExtw4V6yYQ4S3Rt rvReuk7zo4aoEQOsSAcw C72mvAJbl3D2TYZr lMB8NAHoeVfbSfXdwS27 Oyc+RIQxrQwhi7PjVcny z4caa0dewYf4MoWvWUJq aqFvnYufKBM2u3Pr Pe05D28uBMgeSRPzOAOj TRTqTUNiqNkrxp1fmH4h Ii8+HNKzoOL4jSH3eP6b FuWoVsK3XXjcB831 KhHksOZlIvsnn1ghp0qv eSx4QiByWKZppkYmmOin AWG3q1BqQl41Q4WydLwn h0MeKcz6ao15wDXf k0R2hAF9A3IgZLFnuebi eHPsgJjzSN3wWDOfgooa NAIffO8xXVRdH5q4XwGc BgY7LEcuY6OcctQ1 DZJwjEZlXBBwiEPBtI1w umpcx9bpiidtMwTaFOWz TSp6WRg8XGDryMasGfOn PYH8TuE6KNO6zPZy yX0ruFelwpxuuD8tLtl+ WSl5h1hziFKoSY8seVN2 LS58CV41lMIqy3Y4wZB3 E3HkTJJvitwukjpx xIX0YAYhVJNjwP12Lm0x lOzcBn8sGANvKJR5IZUe gBOlQ4MprQ8zUgIaRUNr FSYnM8GkqEMkISqg Y867VPhgNrE2CMBklpAa R7OnDPHhcDmeBqB0w8Q9 Wq5PTF42XQ86GF64dIEu o1Y1wXI1G3SvSJGl krlvihcwmGB7STQoNIGt uX17Tl4fhXpbJf6nIEGd QHZ0MNLkdMXbW4GevS1w QbOaANBpCQZvX9Th rEFzTWycV335YLueOcL8 HRXoukIrZ9OgQIShdKep GyF7w2W7Mn8APy90ZS57 VU11oYUjx7Y9nHA1 G4FvZFMmihxckmnbzYH4 ESIcGMTkcV67Hy8unEce Nv5iJWElSAS4KYYnhKUe M1RxqJ1eGsFdTJFv ECWgZ9NwxSDvUNubJ528 MVtzKmF9GTGeroYmW8Ji NDTtzCpvEwT5r3U5Ve7J KDintkw7P8NgTqnu dHI+YZ77HMXeKL20lMEj iEWzn7uwdXp0NiQfMYIx QIM8gWdhAVwdp1DaQMQa Z26ajIRhf7D2KFRn bGx (more content not included)... Normal [facility] .Auto Diff 10-05-2022 Auto Dickinson % 9 % Normal 11-15 [facility] Comment on above: Performed By: #### 1 [id number], [id number], 7922689, [id number], 3936602, [id number] ####[facility] (DEFAULT)[address] [place] [address] Baso Abs# 0.0 x10 Normal 0.0-0.2 [facility] Comment on above: Performed By: #### 1 [id number], [id number], 5952944, 3158462902, 9621155, [id number] ####[facility] (DEFAULT)[address] [place] [address] 70175 Basophils/100 WBC (Bld) 0.2 % Normal 0.2-2.0 [facility] Comment on above: Performed By: #### 1 [id number], [id number], 6887789, [id number], 1993229, ####[facility] (DEFAULT)[address] [place] [address] 31197 Eos Abs# 0.2 x10 Normal 0.0-0.4 [facility] Comment on above: Performed By: #### 1 0961861, [id number], 7782933, 1374114876, 9975499, ####[facility] (DEFAULT)[address] [place] [address] 61797 Eosinophils/100 WBC (Bld) 1.3 % Normal 0.9-4.0 [facility] Comment on above: Performed By: #### 1 3230158, [id number], 3803414, 4262069269, 3018090, ####[facility] (DEFAULT)[address] [place] [address] 63125 Lymph Abs# 3.4 x10 High 1.3-2.9 [facility] Comment on above: Performed By: #### 1 6027237, [id number], 3134767, 7803795264, 1317980, ####[facility] (DEFAULT)[address] [place] [address] 50107 Lymphocytes/100 WBC (Bld) 31 % Normal 14-48 [facility] Comment on above: Performed By: #### 1 1880270, [id number], 4761178, 2915402223, 6285510, 3314178688 ####[facility] (DEFAULT)[address] [place] [address] 87621 Dickinson Abs# 1.0 x10 High 0.0-0.8 [facility] Comment on above: Performed By: #### 1 5925455, [id number], 6542625, 1196207795, 1042849, ####[facility] (DEFAULT)[address] [place] [address] Neut Abs# 6.5 x10 Normal 1.5-9.2 [facility] Comment on above: Performed By: #### 1 9027375, 4609761023, 3881816, 9195564702, 6266594, 7983948157 ####[facility] (DEFAULT)[address] [place] [address] 91512 Neutrophils/100 WBC (Bld) 59 % Normal 44-88 [facility] Comment on above: Performed By: #### 1 0386412, [id number], 9003523, 0270393124, 1237465, 8251686771 ####[facility] (DEFAULT)[address] [place] [address] 86136 BMP Standardon 10-05-2022 eGFR Non AA 39 mL/min/1.73m2 Invalid Interpretation Code [facility] Comment on above: Performed By: #### 1 3816582, [id number], 4903043, 2944451782, 3772335, [id number] ####[facility] (DEFAULT)[address] [place] [address] 03904 eGFR AA 48 mL/min/1.73m2 Invalid Interpretation Code [facility] Comment on above: Result Comment: Rod Buster itzel Kidney disease could be indicated at eGFRs of less than 60 ml/min/1.73m2. Kidney Failure is indicated at less than 15 ml/min/1.73m2 Performed By: #### 1 4995006, 0489804875, 7087144, 4219111673, 2135929, [id number] ####[facility] (DEFAULT)[address] [place] [address] 34958 Anion gap [Moles/Vol] 13.0 mmol/L Normal 5.0-19.0 [facility] Comment on above: Performed By: #### 1 4802709, 9387978935, 0327173, 3543867834, 5698138, 4422691201 ####[facility] (DEFAULT)[address] [place] [address] 32136 Calcium [Mass/Vol] 8.8 mg/dL Low 8.9-10.3 [facility] Comment on above: Performed By: #### 1 2766953, [id number], 5020063, 8668076430, 1569165, 7719223617 ####[facility] (DEFAULT)[address] [place] [address] 98151 Chloride [Moles/Vol] 102 mmol/L Normal 101-111 [facility] Comment on above: Performed By: #### 1 4373987, 7201086449, 0878349, 2561181869, 6255517, 6235088941 ####[facility] (DEFAULT)[address] [place] [address] 82479 CO2 [Moles/Vol] 28 mmol/L Normal 21-32 [facility] Comment on above: Performed By: #### 1 3635007, 1165426646, 7146194, 7565878876, 5596923, ####[facility] (DEFAULT)[address] [place] [address] 63765 Creatinine [Mass/Vol] 1.29 mg/dL Normal 0.60-1.30 [facility] Comment on above: Performed By: #### 1 3548980, 4996703492, 6839331, 3904124002, 1494520, ####[facility] (DEFAULT)[address] [place] [address] 77399 Glucose [Mass/Vol] 132.0 mg/dL High 74.0-118.0 [facility] Comment on above: Performed By: #### 1 8536459, 1599105863, 5246764, 9988699635, 8163163, 1652265482 ####[facility] (DEFAULT)[address] [place] [address] 84633 Osmolality 287 mOsm/L Invalid Interpretation Code [facility] Comment on above: Performed By: #### 1 7127961, [id number], 2613679, 0007667896, 1281134, 5485739202 ####[facility] (DEFAULT)[address] [place] [address] 18111 Potassium [Moles/Vol] 3.9 mmol/L Normal 3.6-5.1 [facility] Comment on above: Performed By: #### 1 4081356, 3772390898, 3450187, 9598830205, 6515399, 8970569681 ####[facility] (DEFAULT)[address] [place] [address] 56236 Sodium [Moles/Vol] 139.0 mmol/L Normal 136.0-144.0 [facility] Comment on above: Performed By: #### 1 0701300, 3139797458, 5260364, 7980640609, 1175967, 7493149070 ####[facility] (DEFAULT)[address] [place] [address] 34514 Urea nitrogen [Mass/Vol] 33 mg/dL High 8-26 [facility] Comment on above: Performed By: #### 1 6755515, 9720263124, 3507959, 7985672032, 9340365, 1743582071 ####[facility] (DEFAULT)[address] [place] [address] 90372 Urea nitrogen/Creatinin e [Mass ratio] 26.0 mg/mg High 4.6-16.2 [facility] Comment on above: Performed By: #### 1 6814835, 0452794381, 7001235, 7511828818, 2082935, 4879594703 ####[facility] (DEFAULT)[address] [place] [address] 39642 BNP.on 10-05-2022 Internal Control Pass Normal [facility] Comment on above: Performed By: #### 1 3518703, 8508237059, 0643018, 1636987455, 9120671, 5773329781 ####[facility] (DEFAULT)[address] [place] [address] 41231 Natriuretic peptide B (Bld) [Mass/Vol] 38.2 pg/mL Normal 0.0-100.0 [facility] Comment on above: Result Comment: BNP results greater than 100 pg/mL are considered abnormal and suggestive of patients with CHF. Higher BNP concentrations measured in the first 72 hours after an acute coronary syndorme are associated with an increased risk of , myocardial infarction, and CHF. Performed By: #### 1 5449267, 3824043528, 4691755, 0061455737, 8843728, 0131987322 ####[facility] (DEFAULT)[address] [place] [address] 29763 CBC w/ Auto Diffon 2 Erythrocyte distribution width (RBC) [Ratio] 16.7 % High 11.5-15.0 [facility] Comment on above: Performed By: #### 1 0981294, 0960478327, 7373661, 1860964948, 9126343, 6715942236 ####[facility] (DEFAULT)[address] [place] [address] 17720 Hematocrit (Bld) [Volume fraction] 42.6 % High 33.7-40.4 [facility] Comment on above: Performed By: #### 1 3924364, 1516565997, 1947665, 3223556225, 8156955, 5472204879 ####[facility] (DEFAULT)[address] [place] [address] Hemoglobin (Bld) [Mass/Vol] 13.2 g/dL Normal 11.3-15.9 [facility] Comment on above: Performed By: #### 1 0527652, 2406510339, 3604248, 0573404990, 2698605, 7262510729 ####[facility] (DEFAULT)[address] [place] [address] Instr WBC 11.2 x10 Invalid Interpretation Code [facility] Comment on above: Performed By: #### 1 9608660, 7694725926, 8295522, 8186702157, 1020656, 5215320560 ####[facility] (DEFAULT)[address] [place] [address] 97313 Man Diff? Auto Normal [facility] Comment on above: Performed By: #### 1 3250235, 9574887595, 6478801, 9427400962, 8790602, 8375621596 ####[facility] (DEFAULT)[address] [place] [address] 04864 MCH (RBC) [Entitic mass] 29 pg Normal 24-34 [facility] Comment on above: Performed By: #### 1 3117079, 7781795855, 5645647, 3225432371, 4448927, 8502587612 ####[facility] (DEFAULT)[address] [place] [address] 58100 MCHC (RBC) [Mass/Vol] 31 g/dL Normal 26-37 [facility] Comment on above: Performed By: #### 1 3511321, 5247106679, 1370828, 9490732312, 0157842, 6190426287 ####[facility] (DEFAULT)[address] [place] [address] MCV (RBC) [Entitic vol] 94 fL Normal 81-100 [facility] Comment on above: Performed By: #### 1 9805191, 7481881086, 5577139, 2191518339, 0147450, 9697170847 ####[facility] (DEFAULT)[address] [place] [address] Platelet 185 x10 Normal 138-427 [facility] Comment on above: Performed By: #### 1 8460399, 1530914490, 9162340, 8740861283, 2401080, 6032725874 ####[facility] (DEFAULT)[address] [place] [address] Platelet mean volume (Bld) [Entitic vol] 10.4 fL High 6.3-10.2 [facility] Comment on above: Performed By: #### 1 0425578, 0821398096, 5205268, 7523195967, 9923548, 0744216930 ####[facility] (DEFAULT)[address] [place] [address] RBC 4.52 x10 Normal 3.70-5.30 [facility] Comment on above: Performed By: #### 1 9703046, 1726501227, 0922256, 2946399490, 3341327, 2718852713 ####[facility] (DEFAULT)[address] [place] [address] WBC 11.2 x10 High 3.5-10.5 [facility] Comment on above: Performed By: #### 1 7236369, 3730860851, 7764482, 7053726601, 5267638, [id number] ####[facility] (DEFAULT)[address] [place] [address] CRPon 10-05-2022 CRP 1.2 mg/dL High <=0.5 [facility] Comment on above: Performed By: #### 1 [id number], [id number], [id number], [id number], [id number], [id number] ####[facility] (DEFAULT)[address] [place] [address] HgbA1c Standardon 10-05-2022 .Hb 13.3 Invalid Interpretation Code [facility] Comment on above: Performed By: #### 1 [id number], [id number], [id number], [id number], [id number], [id number] ####[facility] (DEFAULT)[address] [place] [address] .Hgb A1c 0.85 g/dL Invalid Interpretation Code [facility] Comment on above: Performed By: #### 1 [id number], [id number], [id number], [id number], [id number], [id number] ####[facility] (DEFAULT)[address] [place] [address] Glucose [Mass/Vol] 183 mg/dL Invalid Interpretation Code [facility] Comment on above: Performed By: #### 1 [id number], [id number], [id number], [id number], [id number], [id number] ####[facility] (DEFAULT)[address] [place] [address] HbA1c (Bld) [Mass fraction] 8.0 % High 4.6-6.2 [facility] Comment on above: Performed By: #### 1 [id number], [id number], [id number], [id number], [id number], [id number] ####[facility] (DEFAULT)[address] [place] [id number] XR Ankle Complete Lefton XR Ankle Complete [...] Technologist: JOSIE [facility] Physical Therapy Noteon 07-06 Physical Therapy Note [id number] [facility] FERRITINon 07-25-2022 Ferritin [Mass/Vol] 95.0 ng/mL Normal 8.0-252.0 [facility] Comment on above: Performed By: #### F ERR, B12FOL #### [facility] [address] [address] [address] Breanna Heller MAGNESIUMon 07-25-2022 Magnesium [Mass/Vol] 2.3 mg/dL Normal 1.8-2.4 [facility] Comment on above: Performed By: #### M EMILY Glass, TSH ####[facility] [address] [id number]. Breanna Heller PHOSPHORUSon 07-25-2022 Phosphate [Mass/Vol] 3.5 mg/dL Normal 2.6-4.7 [facility] Comment on above: Performed By: #### P THINT #### [facility] [address] [address] [address] Breanna Heller TSHon 07-25-2022 TSH 4.584 uIU/mL Critically high 0.358-3.740 [facility] Comment on above: Performed By: #### M PAVEL GlassS, TSH ####[facility] [address] [id number]. Breanna Heller VIT B12 AND FOLATEon 022 Cobalamin (Vitamin B12) [Mass/Vol] 343.0 pg/mL Normal 193.0-986.0 [facility] Comment on above: Performed By: #### F ERR, B12FOL #### [facility] [address] [address] [address] Breanna Heller FOLATE 18.50 ng/mL Normal 8.60-58.90 [facility] Comment on above: Performed By: #### F ERR, B12FOL #### [facility] [address] [address] [address] Breanna Heller XR CHEST 2 Von [...] DEYA MCPHERSON Date: 2022-07-25 17:42 Normal [facility] MG MAMM SCREEN ANNA W CADon 0 04-05-2022 MG MAMM SCREEN ANNA W CAD Patient: JOYCELYN JUAREZ Exam Date: 04/05/2022 : 1940 Gender:F Ordering : DR BACK [facility] [place] [facility] Admission #: [id number] Family : Order #: [id number] CLICK HERE TO VIEW EXAM RADIOLOGY REPORT PROCEDURE: MAMMOGRAM BILATERAL SCREENING DIGITAL WITH COMPUTER AIDED DETECTION COMPARISON: MG MAMM SCREEN NANA W CAD, 03/07/2021. MG MAMM SCREEN 3D ANNA CAD, 06/24/2017. INDICATIONS: Screening mammography Calculator Name NCI Breast Cancer Risk Assessment Tool 5 Year Breast Cancer Risk 5.20% Lifetime Breast Cancer Risk 6.30% Personal Breast Cancer No Personal Ovarian Cancer No Treatments None Family Cancers Sister with breast cancer at age 59; Sister with breast cancer at age 49. LOCATION: [facility] BREAST COMPOSITION: Extremely dense, which lowers the [...] Mcpherson M.D. on 04/05/2022 at 11:04 Normal [facility] US SINGLE QUAD RT UPPERon US SINGLE [...] by: GIA MARQUES Date: 2022-04-05 16:53 Normal [facility] CTA CHEST WO W CONon 022 CTA [...] GIA MARQUES Date: 2022-01-16 07:37 Normal [facility] BUNon 01-15-2022 Urea nitrogen [Mass/Vol] 28.0 mg/dL Critically high 7.0-17.0 [facility] Comment on above: Performed By: #### B KAYLYN, CREA ####[facility] [address] [address]Dr. Breanna Heller CREATININEon 01-15-2022 Creatinine [Mass/Vol] 1.33 mg/dL Critically high 0.52-1.04 [facility] Comment on above: Performed By: #### B KAYLYN, CREA ####[facility] [address] [address]Dr. Breanna Heller EGFR-AF ANGOLAN 46 mL/min/1.73m2 Critically low >=60 [facility] Comment on above: Performed By: #### B KAYLYN, CREA ####[facility] [address] [address]Dr. Breanna Heller EGFR-NON AF ANGOLAN 38 mL/min/1.73m2 Critically low >=60 [facility] Comment on above: Performed By: #### B KAYLYN, CREA ####[facility] [address] [place], [place] [address]Dr. Breanna Heller ECHOCARDIO M/2D COMPLETEon 0 01-15-2022 ECHOCARDIO M/2D COMPLETE Patient: JOYCELYN JUAREZ Exam Date: 01/15/2022 : 1940 Gender:F Ordering : DR DANYEL ANGELO Admission #: [id number] Family : Order #: [id number] CLICK HERE TO VIEW EXAM ECHOCARDIOGRAM REPORT [...] Area(A4C): 20.60 cm2 Left Atrium Systolic Volume(A2C): 15446 mm3 Left Atrium Systolic Volume(A4C): 92712 mm3 Mitral Valve MV E to A [...] M.D. on 01/15/2022 at 17:00 Normal [facility] HEMOGLOBINon 12-18-2021 Hemoglobin (Bld) [Mass/Vol] 12.8 g/dL Normal 12.0-16.0 [facility] Comment on above: Performed By: #### H GB ####[facility] [address] [place], [place] [address]Lr. Breanna Heller XR CHEST 2 Von 12-18-2021 [...] by: GIA MARQUES Date: 2021-12-18 09:06 Normal [facility] Hgb/Hcton 12-29-2018 Hematocrit Volume Fraction (Bld) 26.3 % Low 36.3-47.1 [facility] Comment on above: Performed By: #### P T, PTT #### [facility] [address] [place] [address] [phone] [employer] Mach[employer]ist: Mir Chinchilla MD Hemoglobin mass conc (Bld) 8.5 g/dL Low 11.9-15.1 [facility] Comment on above: Performed By: #### P T, PTT #### [facility] [address] [place] [address] [employer] Mach[employer]ist: Mir Chinchilla MD Basic Metabolic Profon 12-28 (cont.) Normal [facility] Comment on above: Result Comment: Aver age GFR for 70 or more years old: 75 mL/min/1.73sq m Chronic Kidney Disease: <60 mL/min/1.73sq m Kidney failure: <15 mL/min/1.73sq m eGFR calculated using average adult body mass. Additional eGFR calculator available at: http://www.[employer]multiple_crcl_2012.htm Performed By: #### P T, PTT #### [facility] [address] [place] [address] [phone] [employer]ist: Mir Chinchilla MD Anion gap molar conc 12 mmol/L Normal 9-17 [facility] Comment on above: Performed By: #### P T, PTT #### [facility] [address] [place] [address] [phone] [employer] Mach[employer]ist: Mir Chinchilla MD Calcium mass conc 7.7 mg/dL Low 8.6-10.4 [facility] Comment on above: Performed By: #### P T, PTT #### [facility] [address] [place] [address] [phone] [employer]ist: Mir Chinchilla MD Chloride molar conc 105 mmol/L Normal 98-107 [facility] Comment on above: Performed By: #### P T, PTT #### [facility] [address] [place] [address] [employer] Mach[employer]ist: Mir Chinchilla MD CO2 molar conc 23 mmol/L Normal 20-31 [facility] Comment on above: Performed By: #### P T, PTT #### [facility] [address] [place] [address] [employer]ist: Mir Chinchilla MD Creatinine mass conc 1.13 mg/dL High 0.50-0.90 [facility] Comment on above: Performed By: #### P T, PTT #### [facility] [address] [place] [phone] [employer]ist: Mir Chinchilla MD GFR, Amer 56 mL/min Low >[address] [facility] Comment on above: Performed By: #### P T, PTT #### [facility] [address] [place] [address] [employer]ist: Mir Chinchilla MD GFR,non Amer 46 mL/min Low >60 [facility] Comment on above: Performed By: #### P T, PTT #### [facility] [address] [place] [address] [employer] Machinist: Mir Chinchilla MD Glucose mass conc 246 mg/dL High 70-99 [facility] Comment on above: Performed By: #### P T, PTT #### [facility] [address] [place] [address] [employer]ist: Mir Chinchilla MD Potassium molar conc 4.1 mmol/L Normal 3.7-5.3 [facility] Comment on above: Performed By: #### P T, PTT #### [facility] [address] [place] [address] [phone] [employer]ist: Mir Chinchilla MD Sodium molar conc 140 mmol/L Normal 135-144 [facility] Comment on above: Performed By: #### P T, PTT #### [address] [address] [employer]ist: Mir Chinchilla MD Urea nitrogen mass conc 26 mg/dL High 06-26 [facility] Comment on above: Performed By: #### P T, PTT #### [address] [address] [employer] Mach[employer]ist: Mir Chinchilla MD BUN/CRE Ratio NOT REPORTED Normal 07-24 [facility] Comment on above: Performed By: #### P T, PTT #### [address] [address] [employer] Mach[employer]ist: Mir Chinchilla MD Staging: NOT REPORTED Normal [facility] Comment on above: Performed By: #### P T, PTT #### [address] [address] [employer] Mach[employer]ist: Mir Chinchilla MD CBC with Diffon 12-28-2018 Abs. Basophil <0.03 Normal 0.00-0.20 [facility] Comment on above: Performed By: #### P T, PTT #### [address] [address] [employer] Mach[employer]ist: Mir Chinchilla MD Abs.Imm.Granulocyt e 0.04 k/uL Normal 0.00-0.30 [facility] Comment on above: Performed By: #### P T, PTT #### [address] [address] [employer] Mach[employer]ist: Mir Chinchilla MD Abs.Neutrophil (Seg) 5.78 k/uL Normal 1.50-8.10 [facility] Comment on above: Performed By: #### P T, PTT #### [address] [address] [employer] Mach[employer]ist: Mir Chinchilla MD Basophils/100 WBC (Bld) 0 % Normal 0-2 [facility] Comment on above: Performed By: #### P T, PTT #### [address] [address] [employer] Mach[employer]ist: Mir Chinchilla MD Eosinophils #/vol (Bld) 0.09 10*3/uL Normal 0.00-0.44 [facility] Comment on above: Performed By: #### P T, PTT #### [address] [address] [employer] Mach[employer]ist: Mir Chinchilla MD Eosinophils/100 WBC (Bld) 1 % Normal 1-4 [facility] Comment on above: Performed By: #### P T, PTT #### [address] [address] [employer] Mach[employer]ist: Mir Chinchilla MD Erythrocyte distribution width Ratio (RBC) 16.9 % High 11.8-14.4 [facility] Comment on above: Performed By: #### P T, PTT #### [address] [address] [employer] Mach[employer]ist: Mir Chinchilla MD Hematocrit Volume Fraction (Bld) 22.3 % Low 36.3-47.1 [facility] Comment on above: Performed By: #### P T, PTT #### [address] [address] [employer] Mach[employer]ist: Mir Chinchilla MD Hemoglobin mass conc (Bld) 7.1 g/dL Low 11.9-15.1 [facility] Comment on above: Performed By: #### P T, PTT #### [address] [address] [employer] Mach[employer]ist: Mir Chinchilla MD Immature granulocytes #/vol (Bld) 0 % Normal 0 [facility] Comment on above: Performed By: #### P T, PTT #### [address] [address] [employer] Mach[employer]ist: Mir Chinchilla MD Lymphocytes #/vol (Bld) 2.59 10*3/uL Normal 1.10-3.70 [facility] Comment on above: Performed By: #### P T, PTT #### [address] [address] [employer]ist: Mir Chinchilla MD Lymphocytes/100 WBC (Bld) 28 % Normal 24-43 [facility] Comment on above: Performed By: #### P T, PTT #### [address] [address] [employer] Mach[employer]ist: Mir Chinchilla MD MCH Entitic mass (RBC) 29.0 pg Normal 25.2-33.5 [facility] Comment on above: Performed By: #### P T, PTT #### [place] [address] [employer] Mach[employer]ist: Mir Chinchilla MD MCHC mass conc (RBC) 31.8 g/dL Normal 28.4-34.8 [facility] Comment on above: Performed By: #### P T, PTT #### [place] [address] [employer] Mach[employer]ist: Mir Chinchilla MD MCV Entitic volume (RBC) 91.0 fL Normal 82.6-102.9 [facility] Comment on above: Performed By: #### P T, PTT #### [address] [address] [employer] Mach[employer]ist: Mir Chinchilla MD Monocytes #/vol (Bld) 0.74 10*3/uL Normal 0.10-1.20 [facility] Comment on above: Performed By: #### P T, PTT #### [address] [address] [employer] Mach[employer]ist: Mir Chinchilla MD Monocytes/100 WBC (Bld) 8 % Normal 3-12 [facility] Comment on above: Performed By: #### P T, PTT #### [address] [address] [employer] Mach[employer]ist: Mir Chinchilla MD Neutrophil (Seg) 63 % Normal 36-[address] [facility] Comment on above: Performed By: #### P T, PTT #### [address] [address] [employer] Mach[employer]ist: Mir Chinchilla MD NRBC Automated 0.0 per 100 WBC Normal 0.0 [facility] Comment on above: Performed By: #### P T, PTT #### [address] [address] [employer] Mach[employer]ist: Mir Chinchilla MD Platelet mean volume Entitic volume (Bld) 11.1 fL Normal 8.1-13.5 [facility] Comment on above: Performed By: #### P T, PTT #### [address] [address] [employer] Mach[employer]ist: Mir Chinchilla MD Platelets #/vol (Bld) 93 10*3/uL Low 138-453 [facility] Comment on above: Performed By: #### P T, PTT #### [address] [address] [employer] Mach[employer]ist: Mir Chinchilla MD RBC #/vol (Bld) 2.45 10*6/uL Low 3.95-5.11 [facility] Comment on above: Performed By: #### P T, PTT #### [address] [address] [employer]ist: Mir Chinchilla MD RBC morphology finding Nom (Bld) ANISOCYTOSIS PRESENT Normal [facility] Comment on above: Performed By: #### P T, PTT #### [address] [address] [employer] Mach[employer]ist: Mir Chinchilla MD WBC #/vol (Bld) 9.3 10*3/uL Normal 3.5-11.[address] [facility] Comment on above: Performed By: #### P T, PTT #### [address] [address] [employer] Mach[employer]ist: Mir Chinchilla MD Auto Diff Performed NOT REPORTED Normal [facility] Comment on above: Performed By: #### P T, PTT #### [address] [address] [employer] Mach[employer]ist: Mir Chinchilla MD Platelets #/vol (Bld) NOT REPORTED Normal [facility] Comment on above: Performed By: #### P T, PTT #### [address] [address] [employer] Mach[employer]ist: Mir Chinchilla MD WBC Morphology NOT REPORTED Normal [facility] Comment on above: Performed By: #### P T, PTT #### [address] [address] [employer] Mach[employer]ist: Mir Chinchilla MD Cult,Urineon 12-28-2018 Cult,Urine Specimen Description .CATHETERIZED URINE [place] INSERTION Special Requests NOT REPORTED Culture NO GROWTH Report Status FINAL 12/28/2018 Normal [facility] Comment on above: Performed By: #### P T, PTT #### [address] [address] [employer] Mach[employer]ist: Mir Chinchilla MD Basic Metabolic Profon 12-27 (cont.) Normal [facility] Comment on above: Result Comment: Aver age GFR for 70 or more years old: 75 mL/min/1.73sq m Chronic Kidney Disease: <60 mL/min/1.73sq m Kidney failure: <15 mL/min/1.73sq m eGFR calculated using average adult body mass. Additional eGFR calculator available at: http://www.[employer]multiple_crcl_2012.htm Performed By: #### P T, PTT #### [facility] [address] [place] [phone] [employer] Mach[employer]ist: Mir Chinchilla MD Anion gap molar conc 9 mmol/L Normal 9-17 [facility] Comment on above: Performed By: #### P T, PTT #### [address] [address] [employer] Mach[employer]ist: Mir Chinchilla MD Calcium mass conc 9.0 mg/dL Normal 8.6-10.4 [facility] Comment on above: Performed By: #### P T, PTT #### [facility] [address] [place] [address] [employer]ist: Mir Chinchilla MD Chloride molar conc 112 mmol/L High 98-107 [facility] Comment on above: Performed By: #### P T, PTT #### [facility] [address] [place] [address] [employer]ist: Mir Chinchilla MD CO2 molar conc 21 mmol/L Normal 20-31 [facility] Comment on above: Performed By: #### P T, PTT #### [facility] [address] [place] [address] [employer] Mach[employer]ist: Mir Chinchilla MD Creatinine mass conc 0.96 mg/dL High 0.50-0.90 [facility] Comment on above: Performed By: #### P T, PTT #### [facility] [address] [place] [address] [employer] Mach[employer]ist: Mir Chinchilla MD GFR, Amer >60 Normal >[address] [facility] Comment on above: Performed By: #### P T, PTT #### [facility] [place] [address] [employer] Mach[employer]ist: Mir Chinchilla MD GFR,non Amer 56 mL/min Low >60 [facility] Comment on above: Performed By: #### P T, PTT #### [facility] [address] [place] [address] [employer] Mach[employer]ist: Mir Chinchilla MD Glucose mass conc 246 mg/dL High 70-99 [facility] Comment on above: Performed By: #### P T, PTT #### [facility] [address] [place] [address] [employer] Machinist: Mir Chinchilla MD Potassium molar conc 4.3 mmol/L Normal 3.7-5.3 [facility] Comment on above: Performed By: #### P T, PTT #### [facility] [address] [place] [address] [employer] Mach[employer]ist: Mir Chinchilla MD Sodium molar conc 142 mmol/L Normal 135-144 [facility] Comment on above: Performed By: #### P T, PTT #### [facility] [address] [place] [address] [employer] Mach[employer]ist: Mir Chinchilla MD Urea nitrogen mass conc 26 mg/dL High 8-23 [facility] Comment on above: Performed By: #### P T, PTT #### [facility] [address] [place] [address] [employer] Mach[employer]ist: Mir Chinchilla MD BUN/CRE Ratio NOT REPORTED Normal 9-20 [facility] Comment on above: Performed By: #### P T, PTT #### [facility] [address] [place] [address] [employer] Mach[employer]ist: Mir Chinchilla MD Staging: NOT REPORTED Normal [facility] Comment on above: Performed By: #### P T, PTT #### [facility] [address] [place] [phone] [employer]ist: Mir Chinchilla MD CBCon 12-27-2018 Erythrocyte distribution width Ratio (RBC) 17.2 % High 11.8-14.4 [facility] Comment on above: Performed By: #### P T, PTT #### [facility] [address] [place] [address] [employer] Mach[employer]ist: Mir Chinchilla MD Hematocrit Volume Fraction (Bld) 23.3 % Low 36.3-47.1 [facility] Comment on above: Performed By: #### P T, PTT #### [facility] [address] [place] [address] [employer] Mach[employer]ist: Mir Chinchilla MD Hemoglobin mass conc (Bld) 7.5 g/dL Low 11.9-15.1 [facility] Comment on above: Performed By: #### P T, PTT #### [facility] [address] [place] [address] [employer] Mach[employer]ist: Mir Chinchilla MD MCH Entitic mass (RBC) 29.2 pg Normal 25.2-33.5 [facility] Comment on above: Performed By: #### P T, PTT #### [facility] [address] [place] [address] [employer] Mach[employer]ist: Mir Chinchilla MD MCHC mass conc (RBC) 32.2 g/dL Normal 28.4-34.8 [facility] Comment on above: Performed By: #### P T, PTT #### [facility] [address] [place] [address] [employer] Mach[employer]ist: Mir Chinchilla MD MCV Entitic volume (RBC) 90.7 fL Normal 82.6-102.9 [facility] Comment on above: Performed By: #### P T, PTT #### [facility] [address] [place] [address] [employer]ist: Mir Chinchilla MD NRBC Automated 0.0 per 100 WBC Normal 0.0 [facility] Comment on above: Performed By: #### P T, PTT #### [address] [address] [employer] Mach[employer]ist: Mir Chinchilla MD Platelet mean volume Entitic volume (Bld) 11.0 fL Normal 8.1-13.5 [facility] Comment on above: Performed By: #### P T, PTT #### [address] [address] [employer] Mach[employer]ist: Mir Chinchilla MD Platelets #/vol (Bld) 89 10*3/uL Low 138-453 [facility] Comment on above: Performed By: #### P T, PTT #### [address] [address] [employer] Mach[employer]ist: Mir Chinchilla MD RBC #/vol (Bld) 2.57 10*6/uL Low 3.95-5.11 [facility] Comment on above: Performed By: #### P T, PTT #### [address] [address] [employer] Mach[employer]ist: Mir Chinchilla MD WBC #/vol (Bld) 8.5 10*3/uL Normal 3.5-11.[address] [facility] Comment on above: Performed By: #### P T, PTT #### [address] [address] [employer] Mach[employer]ist: Mir Chinchilla MD Erythrocyte distribution width Ratio (RBC) 17.2 % High 11.8-14.4 [facility] Comment on above: Performed By: #### P T, PTT #### [address] [address] [employer] Mach[employer]ist: Mir Chinchilla MD Hematocrit Volume Fraction (Bld) 22.4 % Low 36.3-47.1 [facility] Comment on above: Performed By: #### P T, PTT #### [address] [address] [employer] Mach[employer]ist: Mir Chinchilla MD Hemoglobin mass conc (Bld) 7.3 g/dL Low 11.9-15.1 [facility] Comment on above: Performed By: #### P T, PTT #### [address] [address] [employer] Mach[employer]ist: Mir Chinchilla MD MCH Entitic mass (RBC) 30.2 pg Normal 25.2-33.5 [facility] Comment on above: Performed By: #### P T, PTT #### [address] [address] [employer] Mach[employer]ist: Mir Chinchilla MD MCHC mass conc (RBC) 32.6 g/dL Normal 28.4-34.8 [facility] Comment on above: Performed By: #### P T, PTT #### [address] [address] [employer] Mach[employer]ist: Mir Chinchilla MD MCV Entitic volume (RBC) 92.6 fL Normal 82.6-102.9 [facility] Comment on above: Performed By: #### P T, PTT #### [address] [address] [employer] Mach[employer]ist: Mir Chinchilla MD NRBC Automated 0.0 per 100 WBC Normal 0.0 [facility] Comment on above: Performed By: #### P T, PTT #### [address] [address] [employer] Mach[employer]ist: Mir Chinchilla MD Platelet mean volume Entitic volume (Bld) 10.5 fL Normal 8.1-13.5 [facility] Comment on above: Performed By: #### P T, PTT #### [facility] [address] [place] [address] [employer] Mach[employer]ist: Mir Chinchilla MD Platelets #/vol (Bld) 90 10*3/uL Low 138-453 [facility] Comment on above: Performed By: #### P T, PTT #### [facility] [address] [place] [address] [employer] Mach[employer]ist: Mir Chinchilla MD RBC #/vol (Bld) 2.42 10*6/uL Low 3.95-5.11 [facility] Comment on above: Performed By: #### P T, PTT #### [facility] [address] [place] [address] [phone] [employer]ist: Mir Chinchilla MD WBC #/vol (Bld) 8.6 10*3/uL Normal 3.5-11.[address] [facility] Comment on above: Performed By: #### P T, PTT #### [facility] [address] [place] [address] 17409 [employer]ist: Mir Chinchilla MD Calcium, Ionicon 12-27-2018 Calcium mass conc 1.33 mmol/L Normal 1.13-1.33 [facility] Comment on above: Performed By: #### P T, PTT #### [facility] [address] [place] [address] 31467 [employer]ist: Mir Chinchilla MD Magnesiumon 12-27-2018 Magnesium mass conc 1.7 mg/dL Normal 1.6-2.6 [facility] Comment on above: Performed By: #### P T, PTT #### [facility] [address] [place] [address] 41201 [employer]ist: Mir Chinchilla MD APTTon 12-26-2018 aPTT Coag time (Bld) 30.6 s High 20.5-30.5 [facility] Comment on above: Performed By: #### P T, PTT #### [facility] [place] [address] [employer]ist: Mir Chinchilla MD aPTT Coag time (Bld) 42.7 s High 20.5-30.5 [facility] Comment on above: Performed By: #### P T, PTT #### [facility] [address] [place] [address] 49493 [employer] Mach[employer]ist: Mir Chinchilla MD Basic Metabolic Profon 12-26 (cont.) Normal [facility] Comment on above: Result Comment: Aver age GFR for 70 or more years old: 75 mL/min/1.73sq m Chronic Kidney Disease: <60 mL/min/1.73sq m Kidney failure: <15 mL/min/1.73sq m eGFR calculated using average adult body mass. Additional eGFR calculator available at: http://www.[email or web address]_crcl_2011.htm Performed By: #### P T, PTT #### [facility] [address] [place] [address] 90669 [employer] Mach[employer]ist: Mir Chinchilla MD Anion gap molar conc 10 mmol/L Normal 9-17 [facility] Comment on above: Performed By: #### P T, PTT #### [facility] [address] [place] [address] 36351 [employer] Machinist: Mir Chinchilla MD Calcium mass conc 7.3 mg/dL Low 8.6-10.4 [facility] Comment on above: Performed By: #### P T, PTT #### [facility] [place] [address] [employer] Mach[employer]ist: Mir Chinchilla MD Chloride molar conc 113 mmol/L High 98-107 [facility] Comment on above: Performed By: #### P T, PTT #### [facility] [address] [place] [address] 79158 [employer] Machinist: Mir Chinchilla MD CO2 molar conc 19 mmol/L Low 20-31 [facility] Comment on above: Performed By: #### P T, PTT #### [facility] [address] [place] [address] 66838 [employer] Mach[employer]ist: Mir Chinchilla MD Creatinine mass conc 0.94 mg/dL High 0.50-0.90 [facility] Comment on above: Performed By: #### P T, PTT #### [facility] [address] [place] [address] 36758 [employer] Mach[employer]ist: Mir Chinchilla MD GFR, Amer >60 Normal >[address] [facility] Comment on above: Performed By: #### P T, PTT #### [facility] [address] [place] [address] 11122 [employer] Machinist: Mir Chinchilla MD GFR,non Amer 57 mL/min Low >60 [facility] Comment on above: Performed By: #### P T, PTT #### [facility] [address] [place] [address] 93574 [employer] Machinist: Mir Chinchilla MD Glucose mass conc 212 mg/dL High 70-99 [facility] Comment on above: Performed By: #### P T, PTT #### [facility] [address] [place] [address] 16528 [employer] Machinist: Mir Chinchilla MD Potassium molar conc 4.6 mmol/L Normal 3.7-5.3 [facility] Comment on above: Performed By: #### P T, PTT #### [facility] [address] [place] [address] 12406 [employer] Machinist: Mir Chinchilla MD Sodium molar conc 142 mmol/L Normal 135-144 [facility] Comment on above: Performed By: #### P T, PTT #### [facility] [address] [place] [address] 13257 [employer] Mach[employer]ist: Mir Chinchilla MD Urea nitrogen mass conc 26 mg/dL High 8-23 [facility] Comment on above: Performed By: #### P T, PTT #### [address] [address] [employer] Mach[employer]ist: Mir Chinchilla MD BUN/CRE Ratio NOT REPORTED Normal 9-20 [facility] Comment on above: Performed By: #### P T, PTT #### [address] [address] [employer] Machinist: Mir Chinchilla MD Staging: NOT REPORTED Normal [facility] Comment on above: Performed By: #### P T, PTT #### [address] [address] [employer] Mach[employer]ist: Mir Chinchilla MD CBCon 12-26-2018 Erythrocyte distribution width Ratio (RBC) 16.6 % High 11.8-14.4 [facility] Comment on above: Performed By: #### C BC, PT, PTT, BMP, MG #### [address] [address] [employer]ist: Mir Chinchilla MD Hematocrit Volume Fraction (Bld) 24.5 % Low 36.3-47.1 [facility] Comment on above: Performed By: #### C BC, PT, PTT, BMP, MG #### [address] [address] [employer] Mach[employer]ist: Mir Chinchilla MD Hemoglobin mass conc (Bld) 7.8 g/dL Low 11.9-15.1 [facility] Comment on above: Performed By: #### C BC, PT, PTT, BMP, MG #### [address] [address] [employer]ist: Mir Chinchilla MD MCH Entitic mass (RBC) 29.8 pg Normal 25.2-33.5 [facility] Comment on above: Performed By: #### C BC, PT, PTT, BMP, MG #### [facility] [address] [place] [address] 65131 [employer] Machinist: Mir Chinchilla MD MCHC mass conc (RBC) 31.8 g/dL Normal 28.4-34.8 [facility] Comment on above: Performed By: #### C BC, PT, PTT, BMP, MG #### [facility] [address] [place] [address] 06408 [employer] Machinist: Mir Chinchilla MD MCV Entitic volume (RBC) 93.5 fL Normal 82.6-102.9 [facility] Comment on above: Performed By: #### C BC, PT, PTT, BMP, MG #### [facility] [address] [place] [address] 55864 [employer] Machinist: Mir Chinchilla MD NRBC Automated 0.0 per 100 WBC Normal 0.0 [facility] Comment on above: Performed By: #### C BC, PT, PTT, BMP, MG #### [facility] [address] [place] [address] 49193 [employer]ist: Mir Chinchilla MD Platelet mean volume Entitic volume (Bld) 10.5 fL Normal 8.1-13.5 [facility] Comment on above: Performed By: #### C BC, PT, PTT, BMP, MG #### [facility] [address] [place] [address] 26299 [employer] Mach[employer]ist: Mir Chinchilla MD Platelets #/vol (Bld) 81 10*3/uL Low 138-453 [facility] Comment on above: Performed By: #### C BC, PT, PTT, BMP, MG #### [facility] [address] [place] [address] 78072 [employer] Machinist: Mir Chinchilla MD RBC #/vol (Bld) 2.62 10*6/uL Low 3.95-5.11 [facility] Comment on above: Performed By: #### C BC, PT, PTT, BMP, MG #### [address] [address] [employer] Mach[employer]ist: Mir Chinchilla MD WBC #/vol (Bld) 13.4 10*3/uL High 3.5-11.3 [facility] Comment on above: Performed By: #### C BC, PT, PTT, BMP, MG #### [address] [address] [employer] Mach[employer]ist: Mir Chinchilla MD Calcium, Ionicon 12-26-2018 Calcium mass conc 1.12 mmol/L Low 1.13-1.33 [facility] Comment on above: Performed By: #### O HP, IOCAL #### [address] [address] [employer] Machinist: Mir Chinchilla MD Calcium mass conc 1.17 mmol/L Normal 1.13-1.33 [facility] Comment on above: Performed By: #### O HP, IOCAL #### [address] [address] [employer] Mach[employer]ist: Mir Chinchilla MD FFP, Transfuseon 12-26-2018 FFP, Transfuse Unit Number [id number] Blood Component Type Fresh Plasma Unit Division 00 Status of Unit TRANSFUSED Transfusion Status OK TO TRANSFUSE Normal [facility] Comment on above: Performed By: #### P T, PTT #### [address] [address] [employer] Mach[employer]ist: Mir Chinchilla MD FFP, Transfuse Unit Number [id number] Blood Component Type Fresh Plasma Unit Division 00 Status of Unit TRANSFUSED Transfusion Status OK TO TRANSFUSE Normal [facility] Comment on above: Performed By: #### P T, PTT #### [address] [address] [employer] Mach[employer]ist: Mir Chinchilla MD Hgb/Hcton 12-26-2018 Hematocrit Volume Fraction (Bld) 36.3 % Normal 36.3-47.1 [facility] Comment on above: Performed By: #### H H #### [facility] [place] [address] Marine Engine Machinist: Mir Chinchilla MD Hemoglobin mass conc (Bld) 11.2 g/dL Low 11.9-15.1 [facility] Comment on above: Performed By: #### H H #### [facility] [address] [place] [address] 93917 [employer] Machinist: Mir Chinchilla MD Magnesiumon 12-26-2018 Magnesium mass conc 1.6 mg/dL Normal 1.6-2.6 [facility] Comment on above: Performed By: #### P T, PTT #### [facility] [address] [place] [address] 61999 [employer] Machinist: Mir Chinchilla MD OPERATIVE REPORTon 9 OPERATIVE REPORT [address] [id number] OPERATIVE REPORT PATIENT NAME: JOYCELYN JUAREZ : 1940 MED REC NO: [id number] ROOM: 1001 ACCOUNT NO: [id number] ADMIT DATE: 12/26/2018 PROVIDER: Tito Yang MD [...] site. ANESTHESIA: General. SURGEON: Tito Yang MD [employer] ADVISOR: Feliciano Whitfield, PGY-3 ESTIMATED BLOOD LOSS: 3200 mL. PRODUCTS TRANSFUSED: 3 units of packed red blood cells, 2 of FFP, 1 of platelets, 750 mL of Cell Saver, and 1 L of albumin. COMPLICATIONS: None. DRAIN: 19-Turkmen Gabriele drain placed in the right groin. [...] the Venkatesh's layer with interrupted Vicryl. A 19-Turkmen Gabriele drain was then brought into through [...] and monitoring. TITO YANG MD MA/Ramo_SSNCK_I Doc#: [id number] CC: Normal [facility] Open Heart Panelon 9 Toan Test INFORMATION NOT PROVIDED [facility] Comment on above: Performed By: #### O HP, IOCAL #### [facility] [address] [place] [address]608 [employer] Machinist: Mir Chinchilla MD Body Temp. 35.0 Normal [facility] Comment on above: Performed By: #### O HP, IOCAL #### [facility] [address] [place] [address] 43608 [employer] Machinist: Mir Chinchilla MD Carboxy Hgb 0.3 % Normal 0-5 [facility] Comment on above: Result Comment: Reference Range: Non-Smokers 0-2% Average Smoker 2-4% Heavy Smoker <10% Performed By: #### O HP, IOCAL #### [address] [address] [employer] Machinist: Mir Chinchilla MD Chloride molar conc 111 mmol/L High 98-110 [facility] Comment on above: Performed By: #### O HP, IOCAL #### [facility] [address] [place] [address] 76996 [employer] Machinist: Mir Chinchilla MD FIO2 80% Normal [facility] Comment on above: Performed By: #### O HP, IOCAL #### [facility] [address] [place] [address] 32224 [employer] Machinist: Mir Chinchilla MD Glucose mass conc 209 mg/dL High 65-105 [facility] Comment on above: Performed By: #### O HP, IOCAL #### [address] [address] [employer] Machinist: Mir Chinchilla MD HCO3 molar conc (Bld) 21.4 mmol/L Low 22-27 [facility] Comment on above: Performed By: #### O HP, IOCAL #### [facility] [address] [place] [address] 75428 [employer] Machinist: Mir Chinchilla MD Hematocrit Volume Fraction (Bld) 22.0 % Normal [facility] Comment on above: Performed By: #### O HP, IOCAL #### [facility] [address] [place] [address] 18369 [employer] Machinist: Mir Chinchilla MD Hemoglobin mass conc (Bld) 7.0 g/dL Normal [facility] Comment on above: Performed By: #### O HP, IOCAL #### [facility] [address] [place] [address] 12792 [employer] Machinist: Mir Chinchilla MD Negative Base Excess 3.5 mmol/L High 0.0-2.0 [facility] Comment on above: Performed By: #### O HP, IOCAL #### [facility] [address] [place] [address] 69418 [employer] Machinist: Mir Chinchilla MD Oxygen ppres (Bld) 274.0 mm[Hg] High 75-95 [facility] Comment on above: Performed By: #### O HP, IOCAL #### [facility] [address] [place] [address] 34513 [employer] Machinist: Mir Chinchilla MD Oxygen saturation in Blood 97.8 % Normal 94-100 [facility] Comment on above: Performed By: #### O HP, IOCAL #### [facility] [address] [place] [address] 23443 [employer] Machinist: Mir Chinchilla MD pCO2 41.2 mmHg Normal 32-45 [facility] Comment on above: Performed By: #### O HP, IOCAL #### [address] [address] [employer] Machinist: Mir Chinchilla MD pCO2 Adj'd for Temp 37.4 Normal 32-45 [facility] Comment on above: Performed By: #### O HP, IOCAL #### [facility] [address] [place] [address] 63428 [employer] Machinist: Mir Chinchilla MD pH (Bld) 7.336 [pH] Low 7.350-7.450 [facility] Comment on above: Performed By: #### O HP, IOCAL #### [facility] [address] [place] [address] 94767 [employer] Machinist: Mir Chinchilla MD pH Adjst'd for Temp. 7.364 Normal 7.350-7.450 [facility] Comment on above: Performed By: #### O HP, IOCAL #### [facility] [address] [place] [address] 76451 [employer] Machinist: Mir Chinchilla MD pO2 Adjst'd for Temp 266.0 mmHg High 75-95 [facility] Comment on above: Performed By: #### O HP, IOCAL #### [facility] [address] [place] [address] 23272 [employer] Machinist: Mir Chinchilla MD Potassium molar conc 4.1 mmol/L Normal 3.6-5.0 [facility] Comment on above: Performed By: #### O HP, IOCAL #### [facility] [address] [place] [address] 86281 [employer] Machinist: Mir Chinchilla MD Sodium molar conc 140 mmol/L Normal 136-145 [facility] Comment on above: Performed By: #### O HP, IOCAL #### [facility] [address] [place] [address] 84144 [employer] Machinist: Mir Chinchilla MD Methemoglobin NOT REPORTED Normal 0.0-1.5 [facility] Comment on above: Performed By: #### O HP, IOCAL #### [facility] [address] [place] [address] 12763 [employer] Machinist: Mir Chinchilla MD Mode NOT REPORTED Normal [facility] Comment on above: Performed By: #### O HP, IOCAL #### [facility] [address] [place] [address] 03385 [employer] Machinist: Mir Chinchilla MD Notification Time NOT REPORTED Normal [facility] Comment on above: Performed By: #### O HP, IOCAL #### [facility] [address] [place] [address] 84918 [employer] Machinist: Mir Chinchilla MD Notification: NOT REPORTED Normal [facility] Comment on above: Performed By: #### O HP, IOCAL #### [facility] [address] [place] [address] 60653 [employer] Machinist: Mir Chinchilla MD O2 Device/Flow/% NOT REPORTED Normal [facility] Comment on above: Performed By: #### O HP, IOCAL #### [facility] [address] [place] [address] 96685 [employer] Machinist: Mir Chinchilla MD Oxyhemoglobin NOT REPORTED Normal 95.0-98.0 [facility] Comment on above: Performed By: #### O HP, IOCAL #### [facility] [address] [place] [address] 05749 [employer] Machinist: Mir Chinchilla MD PEEP/CPAP NOT REPORTED Normal [facility] Comment on above: Performed By: #### O HP, IOCAL #### [facility] [address] [place] [address] 63512 [employer] Machinist: Mir Chinchilla MD Positive Base Excess NOT REPORTED Normal 0.0-2.0 [facility] Comment on above: Performed By: #### O HP, IOCAL #### [facility] [address] [place] [address] 28472 [employer] Machinist: Mir Chinchilla MD PSV NOT REPORTED Normal [facility] Comment on above: Performed By: #### O HP, IOCAL #### [facility] [address] [place] [address] 18967 [employer] Machinist: Mir Chinchilla MD Pt. Position NOT REPORTED Normal [facility] Comment on above: Performed By: #### O HP, IOCAL #### [employer] [address] [place] [address] [phone] [employer] Machinist: Mir Chinchilla MD Set Rate NOT REPORTED Normal [facility] Comment on above: Performed By: #### O HP, IOCAL #### [facility] [address] [place] [address] [employer] Machinist: Mir Chinchilla MD Site Drawn NOT REPORTED Normal [facility] Comment on above: Performed By: #### O HP, IOCAL #### [facility] [address] [place] [address] [employer] Machinist: Mir Chinchilla MD Text for Respiratory NOT REPORTED Normal [facility] Comment on above: Performed By: #### O HP, IOCAL #### [facility] [address] [place] [address]125 [employer] Machinist: Mir Chinchilla MD Total Hb NOT REPORTED Normal 12.0-16.0 [facility] Comment on above: Performed By: #### O HP, IOCAL #### [facility] [address] [place] [address] 71342 [employer] Machinist: Mir Chinchilla MD Total Rate NOT REPORTED Normal [facility] Comment on above: Performed By: #### O HP, IOCAL #### [facility] [address] [place] [address] 09437 [employer] Machinist: Mir Chinchilla MD VT NOT REPORTED Normal [facility] Comment on above: Performed By: #### O HP, IOCAL #### [facility] [address] [place] [address] 42079 [employer] Machinist: Mir Chinchilla MD Toan Test INFORMATION NOT PROVIDED Normal [facility] Comment on above: Performed By: #### O HP, IOCAL #### [facility] [address] [place] [address] 54682 [employer] Machinist: Mir Chinchilla MD Body Temp. 35.0 Normal [facility] Comment on above: Performed By: #### O HP, IOCAL #### [facility] [address] [place] [address] 25410 [employer] Machinist: Mir Chinchilla MD Carboxy Hgb 1.1 % Normal 0-5 [facility] Comment on above: Result Comment: Reference Range: Non-Smokers 0-2% Average Smoker 2-4% Heavy Smoker <10% Performed By: #### O HP, IOCAL #### [facility] [address] [place] [address] 49684 [employer] Machinist: Mir Chinchilla MD Chloride molar conc 116 mmol/L High 98-110 [facility] Comment on above: Performed By: #### O HP, IOCAL #### [facility] [address] [place] [address]191 [employer] Machinist: Mir Chinchilla MD FIO2 100% Normal [facility] Comment on above: Performed By: #### O HP, IOCAL #### [facility] [address] [place] [address] 40065 [employer] Machinist: Mir Chinchilla MD Glucose mass conc 183 mg/dL High 65-105 [facility] Comment on above: Performed By: #### O HP, IOCAL #### [address] [address] [employer] Machinist: Mir Chinchilla MD HCO3 molar conc (Bld) 16.8 mmol/L Low 22-27 [facility] Comment on above: Performed By: #### O HP, IOCAL #### [facility] [address] [place] [address] 44296 [employer] Machinist: Mir Chinchilla MD Hematocrit Volume Fraction (Bld) 23.2 % Normal [facility] Comment on above: Performed By: #### O HP, IOCAL #### [facility] [address] [place] [address] 28954 [employer] Machinist: Mir Chinchilla MD Hemoglobin mass conc (Bld) 7.4 g/dL Normal [facility] Comment on above: Performed By: #### O HP, IOCAL #### [address] [address] [employer] Mach[employer]ist: Mir Chinchilla MD Negative Base Excess 7.4 mmol/L High 0.0-2.0 [facility] Comment on above: Performed By: #### O HP, IOCAL #### [address] [address] [employer] Mach[employer]ist: Mir Chinchilla MD Oxygen ppres (Bld) 335.0 mm[Hg] High 75-95 [facility] Comment on above: Performed By: #### O HP, IOCAL #### [address] [address] [employer] Machinist: Mir Chinchilla MD Oxygen saturation in Blood 99.4 % Normal 94-100 [facility] Comment on above: Performed By: #### O HP, IOCAL #### [address] [address] [employer] Machinist: Mir Chinchilla MD pCO2 30.4 mmHg Low 32-45 [facility] Comment on above: Performed By: #### O HP, IOCAL #### [address] [address] [employer] Machinist: Mir Chinchilla MD pCO2 Adj'd for Temp 27.6 Low 32-45 [facility] Comment on above: Performed By: #### O HP, IOCAL #### [address] [address] [employer] Mach[employer]ist: Mir Chinchilla MD pH (Bld) 7.362 [pH] Normal 7.350-7.450 [facility] Comment on above: Performed By: #### O HP, IOCAL #### [address] [address] [employer] Machinist: Mir Chinchilla MD pH Adjst'd for Temp. 7.390 Normal 7.350-7.450 [facility] Comment on above: Performed By: #### O HP, IOCAL #### [address] [address] [employer] Mach[employer]ist: Mir Chinchilla MD pO2 Adjst'd for Temp 326.0 mmHg High 75-95 [facility] Comment on above: Performed By: #### O HP, IOCAL #### [address] [address] [employer] Mach[employer]ist: Mir Chinchilla MD Potassium molar conc 3.2 mmol/L Low 3.6-5.0 [facility] Comment on above: Performed By: #### O HP, IOCAL #### [address] [address] [employer] Mach[employer]ist: Mir Chinchilla MD Sodium molar conc 140 mmol/L Normal 136-145 [facility] Comment on above: Performed By: #### O HP, IOCAL #### [address] [address] [employer] Mach[employer]ist: Mir Chinchilla MD PTon 12-26-2018 INR Coag RelTime (PPP) 1.2 {INR} Normal [facility] Comment on above: Result Comment: Therapeutic Range: Moderate Anticoagulant Intensity: INR = 2.0-3.0 High Anticoagulant Intensity: INR = 2.5-3.5 Performed By: #### C BC, PT, PTT, BMP, MG #### [address] [address] [employer]ist: Mir Chinchilla MD Prothrombin time (PT) Coag time (PPP) 12.3 s High 9.0-12.0 [facility] Comment on above: Performed By: #### C BC, PT, PTT, BMP, MG #### [address] [address] [employer]ist: Mir Chinchilla MD INR Coag RelTime (PPP) 1.0 {INR} Normal [facility] Comment on above: Result Comment: Therapeutic Range: Moderate Anticoagulant Intensity: INR = 2.0-3.0 High Anticoagulant Intensity: INR = 2.5-3.5 Performed By: #### P T, PTT #### [address] [address] [employer]ist: Mir Chinchilla MD Prothrombin time (PT) Coag time (PPP) 11.0 s Normal 9.0-12.0 [facility] Comment on above: Performed By: #### P T, PTT #### [address] [phone] [employer]ist: Mir Chinchilla MD Platelets,Transfuseon 2018 Platelets,Transfus e Unit Number [id number] Blood Component Type Leukocyte Reduced Irradiated Plateletpheresis Unit Division 00 Status of Unit TRANSFUSED Transfusion Status OK TO TRANSFUSE Normal [facility] Comment on above: Performed By: #### P T, PTT #### [address] [id number] Marine Engine Machinist: Mir Chinchilla MD Type + Screenon 12-26-2018 Type + Screen Sample Expiration 12/29/2018 Arm Band Number [id number] ABO/Rh(D) O POSITIVE Antibody Screen NEGATIVE Unit Number [id number] Blood Component Type Leukocyte Reduced Red Cell Unit Division 00 Status of Unit TRANSFUSED Transfusion Status OK TO TRANSFUSE Crossmatch Result COMPATIBLE Unit Number [id number] Blood Component Type Leukocyte Reduced Red Cell Unit Division 00 Status of Unit TRANSFUSED Transfusion Status OK TO TRANSFUSE Crossmatch Result COMPATIBLE Unit Number [id number] Blood Component Type Leukocyte Reduced Red Cell Unit Division 00 Status of Unit TRANSFUSED Transfusion Status OK TO TRANSFUSE Crossmatch Result COMPATIBLE Unit Number [id number] Blood Component Type Leukocyte Reduced Red Cell Unit Division 00 Status of Unit TRANSFUSED Transfusion Status OK TO TRANSFUSE Crossmatch Result COMPATIBLE Normal [facility] Comment on above: Performed By: #### T YS #### [address] [address] Marine Engine Machinist: Mir Chinchilla MD XR CHEST PORTABLEon 12-26-19 [...] Chaz Mac MD 12/26/18 Final result Normal [facility] PRO BNP NTon 07-18-2018 Natriuretic peptide B mass conc (Bld) 823.20 pg/mL High <300 [facility] Comment on above: Result Comment: NOTE : AGE CONGESTIVE HEART FAILURE LIKELY <50 YEARS > 450 pg/mL 50-75 YEARS > 900 pg/mL >75 YEARS >1800 pg/mL[facility] [address] [place], [place] [address]Laboratory Director: Marlon Betts M.D.CLIA No. [id number] CAP Accreditation No. [id number] BASIC METABOLIC PANEL WITH G FRon 07-16-2018 [...] Glucose mass conc 181 mg/dL High 70-99 [facility] Comment on above: Result Comment: DIAG NOSTIC THRESHOLDS FOR DIABETES AND IMPAIRED FASTING GLUCOSE (IFG) FASTING PLASMA GLUCOSE NORMAL <100 mg/dL IFG 100-125 mg/dL DIABETES >/= 126 mg/dL GESTATIONAL DIABETES >/= 92 mg/dL Potassium molar conc 5.0 mmol/L Normal 3.5-5.4 [facility] Sodium molar conc 143 mmol/L Normal 135-146 [facility] Urea nitrogen mass conc 39 mg/dL High 8-23 [facility] Vital Signs Date Time Vital Sign Value Performing Clinician Facility 01-23-2024 07:55-0400 Body height 172.7 cm Cari Napoles APRNTruminimP Work Phone: [facility] 01-23-2024 07:55-0400 Body mass index (BMI) [Ratio] 47.44 kg/m2 Cari Shirin BEHAVIORAL INTERVENTION SPECIALISTTruminimP Work Phone: [facility] 01-23-2024 07:55-0400 Body temperature 97.5 [degF] Cari Coboscristino BEHAVIORAL INTERVENTION SPECIALISTTruminimP Work Phone: [facility] 01-23-2024 07:55-0400 Body weight 141.52 kg Cari Coboscristino BEHAVIORAL INTERVENTION SPECIALISTTruminimP Work Phone: [facility] 01-23-2024 07:55-0400 Diastolic blood pressure 64 mm[Hg] Cari Coboscristino BEHAVIORAL INTERVENTION SPECIALISTTruminimP Work Phone: [facility] 01-23-2024 07:55-0400 Heart rate 79 /min Cari Napoles BEHAVIORAL INTERVENTION SPECIALIST-NREMT Work Phone: [facility] 01-23-2024 07:55-0400 Respiratory rate 18 /min Cari Napoles BEHAVIORAL INTERVENTION SPECIALIST-NREMT Work Phone: [facility] 01-23-2024 07:55-0400 SaO2% (BldA) [Mass fraction] 95 % Cari Napoles BEHAVIORAL INTERVENTION SPECIALIST-NREMT Work Phone: [facility] 01-23-2024 07:55-0400 Systolic blood pressure 120 mm[Hg] Cari Napoles BEHAVIORAL INTERVENTION SPECIALIST-NREMT Work Phone: [facility] 01-09-2024 10:49-0500 Body height 172.7 cm Cari Napoles APRN-NREMT Work Phone: [facility] 01-09-2024 10:49-0500 Body mass index (BMI) [Ratio] 47.23 kg/m2 Cari Napoles BEHAVIORAL INTERVENTION SPECIALIST-NREMT Work Phone: [facility] 01-09-2024 10:49-0500 Body temperature 97.9 [degF] Cari Napoles BEHAVIORAL INTERVENTION SPECIALIST-NREMT Work Phone: [facility] 01-09-2024 10:49-0500 Body weight 140.89 kg Cari Napoles BEHAVIORAL INTERVENTION SPECIALIST-NREMT Work Phone: [facility] 01-09-2024 10:49-0500 Diastolic blood pressure 72 mm[Hg] Cari Napoles BEHAVIORAL INTERVENTION SPECIALIST-NREMT Work Phone: [facility] 01-09-2024 10:49-0500 Heart rate 72 /min Cari Napoles APRN-NREMT Work Phone: [facility] 01-09-2024 10:49-0500 SaO2% (BldA) [Mass fraction] 94 % Cari Napoles BEHAVIORAL INTERVENTION SPECIALIST-NREMT [facility] 01-09-2024 10:49-0500 Systolic blood pressure 130 mm[Hg] Cari Napoles BEHAVIORAL INTERVENTION SPECIALIST-NREMT Work Phone: [facility] [employer] 11-01-2023 12:15-0500 Body height 172.7 cm Jered Celestin MD Work Phone: [facility] 11-01-2023 12:15-0500 Body mass index (BMI) [Ratio] 47.9 kg/m2 Jered Celestin MD Work Phone: [facility] 11-01-2023 12:15-0500 Body weight 142.88 kg Jered Celestin MD Work Phone: [facility] 11-01-2023 12:15-0500 Diastolic blood pressure 64 mm[Hg] Jered Celestin MD Work Phone: [facility] 11-01-2023 12:15-0500 Heart rate 87 /min Jered Celestin MD Work Phone: [facility] 11-01-2023 12:15-0500 Respiratory rate 18 /min Jered Celestin MD Work Phone: [facility] 11-01-2023 12:15-0500 SaO2% (BldA) [Mass fraction] 93 % Jered Celestin MD Work Phone: [employer] 11-01-2023 12:15-0500 Systolic blood pressure 132 mm[Hg] Jered Celestin MD Work Phone: [employer] 10-09-2023 16:30-0500 Body height 165.1 cm Evita Baker Other [facility] 10-09-2023 16:30-0500 Body mass index (BMI) [Ratio] 51.58 kg/m2 Evita Baker Other [facility] 10-09-2023 16:30-0500 Body temperature 98.2 [degF] Evita Baker Other [facility] 10-09-2023 16:30-0500 Body weight 140.62 kg Evita Baker Other [facility] 10-09-2023 16:30-0500 Respiratory rate 18 /min Evita Baker Other [facility] 10-09-2023 16:30-0500 SaO2% (BldA) [Mass fraction] 94 % Evita Baker Other [facility] 08-02-2022 11:00-0400 Body height 165.1 cm Danyel Peacekatharine Other [facility] 08-02-2022 11:00-0400 Body temperature 97 [degF] Kwameal Chaban Other [facility] 08-02-2022 11:00-0400 Diastolic blood pressure 70 mm[Hg] Kwameal Chaban Other [facility] 08-02-2022 11:00-0400 Respiratory rate 20 /min Kwameal Chaban Other [facility] 08-02-2022 11:00-0400 SaO2% (BldA) [Mass fraction] 96 % Kamal Chaban Other [facility] 08-02-2022 11:00-0400 Systolic blood pressure 128 mm[Hg] Kamal Chaban Other [facility] 04-12-2022 11:00-0400 Body height 165.1 cm Danyel Peaceban Other [facility] 04-12-2022 11:00-0400 Body mass index (BMI) [Ratio] 51.58 kg/m2 Danyel Chaban Other [facility] 04-12-2022 11:00-0400 Body temperature 98.2 [degF] Danyel Peaceban Other [facility] 04-12-2022 11:00-0400 Body weight 140.62 kg Danyel Peaceban Other [facility] 04-12-2022 11:00-0400 Diastolic blood pressure 70 mm[Hg] Danyel Chaban Other [facility] 04-12-2022 11:00-0400 Respiratory rate 20 /min Danyel Peaceban Other [facility] 04-12-2022 11:00-0400 SaO2% (BldA) [Mass fraction] 93 % Danyel Peaceban Other [facility] 04-12-2022 11:00-0400 Systolic blood pressure 126 mm[Hg] Danyel Chaban Other [facility] 02-01-2022 10:30-0400 Body height 165.1 cm Danyel Chaban Other [facility] 02-01-2022 10:30-0400 Body mass index (BMI) [Ratio] 51.75 kg/m2 Danyel Chaban Other [facility] 02-01-2022 10:30-0400 Body temperature 98 [degF] Kwameal Chaban Other [facility] 02-01-2022 10:30-0400 Body weight 141.07 kg Danyel Chaban Other [facility] 02-01-2022 10:30-0400 Diastolic blood pressure 76 mm[Hg] Kwameal Chaban Other [facility] 02-01-2022 10:30-0400 Respiratory rate 20 /min Danyel Peaceban Other [facility] 02-01-2022 10:30-0400 SaO2% (BldA) [Mass fraction] Kwameal Chaban Other [facility] 02-01-2022 10:30-0400 Systolic blood pressure 132 mm[Hg] Kwameal Chaban Other [facility] 01-03-2022 11:30-0500 Body height 165.1 cm Danyel Chaban Other [facility] 01-03-2022 11:30-0500 Body mass index (BMI) [Ratio] 52.08 kg/m2 Danyel Chaban Other [facility] 01-03-2022 11:30-0500 Body temperature 98.2 [degF] Kwameal Chaban Other [facility] 01-03-2022 11:30-0500 Body weight 141.98 kg Danyel Chaban Other [facility] 01-03-2022 11:30-0500 Diastolic blood pressure 66 mm[Hg] Danyel Angelo Other [facility] 01-03-2022 11:30-0500 Respiratory rate 20 /min Danyel Angelo Other [facility] 01-03-2022 11:30-0500 SaO2% (BldA) [Mass fraction] Danyel Angleo Other [facility] 01-03-2022 11:30-0500 Systolic blood pressure 114 mm[Hg] Danyel Angelo Other [facility] Other 12-26-2018 20:48-0500 Respiratory rate NOT REPORTED [facility] Comment on above: Performed By: #### OHP, IOCAL #### [employer] [address] [place], [place] [id number] Marine Engine Machinist: Mir Chinchilla MD Encounters Encounter Date Encounter Type Care Provider Facility Start: 01-31-2024 Refill Cari Napoles BEHAVIORAL INTERVENTION SPECIALIST-NREMT Work Phone: [facility] Comment on above: Polyneuropathy Start: 01-23-2024 End: 01-24-2024 ambulatory [facility] Start: 01-23-2024 End: 01-23-2024 ambulatory [facility] Start: 01-23-2024 End: 01-23-2024 Office outpatient visit 25 minutes Cari Napoles BEHAVIORAL INTERVENTION SPECIALIST-NREMT Work Phone: [facility] Comment on above: 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, with long-term current use of insulin ([facility]) (Primary Dx); Stasis dermatitis of lower extremity due to chronic peripheral vascular hypertension; Mixed hyperlipidemia; Pulmonary hypertension ([facility]); PAF (paroxysmal atrial fibrillation) ([facility]); Fibrosis of lung ([facility]); Morbid obesity ([facility]) Start: 01-14-2024 Orders Only Cari Napoles BEHAVIORAL INTERVENTION SPECIALIST-NREMT Work Phone: [facility] Start: 01-14-2024 Refill Cari Napoles BEHAVIORAL INTERVENTION SPECIALIST-NREMT Work Phone: [facility] Comment on above: Gouty arthropathy Start: 01-09-2024 End: 01-09-2024 ambulatory CARI NAPOLES [facility] Start: 01-09-2024 End: 01-09-2024 Office outpatient visit 15 minutes Cari Napoles BEHAVIORAL INTERVENTION SPECIALIST-NREMT Work Phone: [facility] Comment on above: Flu-like symptoms (P rimary Dx); Viral URI with cough Start: 12-18-2023 Chart abstracting Silva Sanders DPM Work Phone: [facility] Start: 12-18-2023 End: 12-18-2023 ambulatory SILVA SANDERS Not Available Start: 12-18-2023 End: 12-18-2023 Patient encounter procedure Silva Sanders DPM Work Phone: [facility] Comment on above: Onychomycosis (Prima ry Dx); 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 ([facility]); Pain in both feet; Healed foot ulcer Start: 12-05-2023 Refill Cari Napoles BEHAVIORAL INTERVENTION SPECIALIST-NREMT Work Phone: [facility] Comment on above: Mixed hyperlipidemia Start: 11-18-2023 Refill Cari Napoles BEHAVIORAL INTERVENTION SPECIALIST-NREMT Work Phone: [facility] Comment on above: Polyneuropathy Start: 11-01-2023 End: 11-02-2023 ambulatory JERED CELESTIN [facility] Start: 11-01-2023 Encounter for genera l adult medical examination without abnormal findings JERED CELESTIN [facility] Start: 11-01-2023 End: 11-01-2023 Office outpatient visit 25 minutes Jered Celestin MD Work Phone: [facility] Comment on above: PAF (paroxysmal atri al fibrillation) ([facility]) (Primary Dx); Abnormal echocardiogram; Essential hypertension; Nonrheumatic mitral valve regurgitation; LVH (left ventricular hypertrophy); Pulmonary hypertension ([facility]); S/P ablation of atrial fibrillation; Healthcare maintenance; Atrial enlargement, bilateral; DESTINY (obstructive sleep apnea); Bilateral leg edema; Hyperlipidemia, unspecified hyperlipidemia type; Current use of long-term anticoagulation; Abnormal ECG; History of radiofrequency ablation (RFA) for complex left atrial arrhythmia; venetian blind tape cutter (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 anticoagulants Start: 11-01-2023 End: 11-01-2023 Patient encounter status Jered Celestin MD Work Phone: [facility] [employer] Work Phone: Start: 10-09-2023 End: 10-09-2023 ambulatory Evita Baker Other [facility] Other Start: 10-09-2023 Office outpatient vi sit 15 minutes Evita Baker [facility] Start: 09-16-2023 End: 09-16-2023 ambulatory SILVA SANDERS Not Available Start: 05-01-2023 ambulatory Nery Chow Facility:[facility] Start: 03-18-2023 End: 03-19-2023 ambulatory CARI NAPOLES Facility:[facility] Start: 03-11-2023 End: 03-12-2023 ambulatory CARI NAPOLES Facility:[facility] Start: 03-08-2023 End: 03-09-2023 ambulatory MARYCRUZ Barnett Facility:[facility] Start: 03-06-2023 End: 03-07-2023 ambulatory MARYCRUZ Barnett Facility:[facility] Start: 03-01-2023 End: 03-02-2023 ambulatory MARYCRUZ Barnett Facility:[facility] Start: 12-04-2022 End: 12-05-[address] DOCTOR GTZ Facility:[facility] Start: 11-22-2022 End: 11-23-[address] DOCTOR GTZ Facility:[facility] Start: 10-30-2022 End: 10-31-2022 ambulatory MARYCRUZ Barnett Facility:[facility] Start: 10-18-2022 End: 10-19-2022 ambulatory Erma Prado PA-C Facility:[facility] Start: 10-10-2022 End: 10-11-2022 ambulatory James Healy Facility:[facility] Start: 10-05-2022 End: 10-06-2022 ambulatory RACHEL MAE Facility:[facility] Start: 10-05-2022 End: 10-06-2022 ambulatory RACHELJessica MAE Facility:[facility] Start: 08-02-2022 End: 08-02-2022 ambulatory Kamaugustine Peaceban Other [facility] Other Start: 08-02-2022 Office outpatient vi sit 15 minutes Kamal Chaban [facility] Start: 07-25-2022 End: 07-26-[address] DOCTOR GTZ Facility:[facility] Start: 04-12-2022 End: 04-12-2022 ambulatory Kamal Chaban Other [facility] Other Start: 04-12-2022 Office outpatient vi sit 25 minutes Kamal Chaban [facility] Start: 04-05-2022 End: 04-06-[address] DOCTOR GTZ Facility:[facility] Start: 02-01-2022 End: 02-01-2022 ambulatory Kamal Chaban Other [facility] Other Start: 02-01-2022 Office outpatient vi sit 25 minutes Kamal Chaban [facility] Start: 01-15-2022 End: 01-16-[address] DANYEL ANGELO Facility:[facility] Start: 01-03-2022 End: 01-03-2022 ambulatory Kamal Chaban Other [facility] Other Start: 01-03-2022 Office outpatient ne w 45 minutes Danyel Angelo [facility] Start: 12-18-2021 End: 12-19-[address] DOCTOR GTZ Facility:[facility] Start: 12-26-2018 End: 12-30-2018 Evaluation and management of inpatient CHRISTIE ESTRADA [facility] Procedures Date Procedure Procedure Detail Performing Clinician Start: 01-23-2024 Adult depression screening assessment Cari Napoles BEHAVIORAL INTERVENTION SPECIALIST-NREMT Work Phone: Start: 01-09-2024 POCT INFLUENZA A/INFLUENZA B/SARS-COV-2 VERITOR Cari Napoles BEHAVIORAL INTERVENTION SPECIALIST-NREMT Work Phone: Start: 01-09-2024 Adult depression screening assessment Cari Napoles BEHAVIORAL INTERVENTION SPECIALIST-NREMT Work Phone: Start: 11-01-2023 Follow-up visit Follow-up [...] CHRISTIE ESTRADA Start: 12-29-2018 PULSE OXIMETRY, CONTINUOUS CHRISTEI BREN YA Start: 12-29-2018 Ecg routine ecg w/least 12 lds w/i&r CHRISTIE ESTRADA Start: 12-29-2018 Glucose blood reagent strip CHRISTIE LORENZANAA Start: 12-29-2018 HEMOGLOBIN AND HEMATOCRIT, BLOOD CHRISTIE ESTRADA Start: 12-29-2018 Gluc bld gluc mntr dev cleared fda spec home use CHRISITE ESTRADA Start: 12-29-2018 INITIATE OXYGEN THERAPY PROTOCOL [...] r-t 2d w/prb img acquisj i&r CHRISTIE ESTRADA Start: 12-26-2018 R & l hrt cath w/njx l ventriculog img s&i CHRISTIE ESTRADA Plan of Treatment Date Care Activity Detail Author Start: 07-19-2026 DTaP,Tdap and Td Vaccines (3 - Td or Tdap) DTaP,Tdap and Td Vaccines (3 - Td or Tdap) [facility] Start: 01-22-2025 Adult BMI Follow Up Plan Adult BMI F ollow Up Plan [facility] Start: 01-22-2025 Adult BMI Screening Adult BMI Screen ing [facility] Start: 01-22-2025 Depression Screening Depression Scre ening [facility] Start: 01-22-2025 Fall Risk Screening Fall Risk Screen ing [facility] Start: 01-22-2025 Tobacco Screening Tobacco Screening [facility] Start: 01-08-2025 Adult BMI Screening Adult BMI Screen ing [facility] Start: 01-08-2025 Depression Screening Depression Scre ening [facility] Start: 01-08-2025 Fall Risk Screening Fall Risk Screen ing [facility] Start: 01-08-2025 Tobacco Screening Tobacco Screening [facility] Start: 11-01-2024 Adult BMI Screening Adult BMI Screen ing [facility] Start: 11-01-2024 Tobacco Screening Tobacco Screening [facility] Start: 10-14-2024 Depression Screening Depression Scre ening [facility] Start: 10-01-2024 Fall Risk Screening Fall Risk Screen ing [facility] Start: 10-01-2024 Medicare Annual Well ness Visit Medicare Annual Wellness Visit [facility] Start: 03-18-2024 End: 03-18-2024 Patient encounter procedure 03/18/2024 11:15 AM EDT Procedure Visit [facility] [address] [place] [address] Silva Sanders DPM [address] [place] [address] [facility] Start: 01-29-2024 Administration of varicella zoster vaccine Zoster (Shingles) Vaccine (1 of 2) [facility] Comment on above: Postponed from 12/20 (Patient Refused) Start: 01-23-2024 End: 01-23-2024 Patient encounter procedure 01/23/2024 8:00 AM EDT [facility] [address] [place] [id number] Cari Napoles, BEHAVIORAL INTERVENTION SPECIALIST-NREMT [address] [place] [address] [facility] Start: 12-18-2023 End: 12-18-2023 Patient encounter procedure 12/18/2023 11:15 AM EST Procedure Visit [facility] [address] [place] [address] Silva Sanders DPM [address] [place] [address] [facility] Start: 1988 Administration of varicella zoster vaccine Zoster (Shingles) Vaccine (1 of 2) [facility] Start: 1956 Adult BMI Follow Up Plan Adult BMI F ollow Up Plan [facility] POCT EKG POCT EKG ECG Rou don Abnormal echocardiogram Essential hypertension Nonrheumatic mitral valve regurgitation LVH (left ventricular hypertrophy) Pulmonary hypertension ([facility]) S/P ablation of atrial fibrillation Healthcare maintenance 11/01/2023 12:20 PM EST [facility] Work Phone: Immunizations Immunization Date Immunization Notes Care Provider Fa [facility] 08-21-2023 Influenza Vaccine, Quadrivalent, Adjuvanted Jered Celestin MD Work Phone: [facility] 11-21-2022 Influenza Vaccine, Quadrivalent, Adjuvanted Jered Celestin MD Work Phone: [facility] 01-09-2021 COVID-19 Vaccine Pratima - Documentation Purposes Only Danyel Angelo Other [facility] 09-02-2020 influenza, high dose seasonal, preservative-free Jered Celestin MD Work Phone: [facility] 09-01-2020 pneumococcal conjuga te vaccine, 13 valent Jered Celestin MD Work Phone: [facility] 08-27-2019 influenza, injectabl e, quadrivalent, contains preservative Jered Celestin MD Work Phone: [facility] 08-14-2018 Seasonal trivalent influenza vaccine, adjuvanted, preservative free Jered Celestin MD Work Phone: [facility] 07-19-2017 Influenza, injectabl e, [place]in [place] Canine Kidney, quadrivalent with preservative Jered Celestin MD Work Phone: [facility] 11-12-2016 influenza, high dose seasonal, preservative-free Jered Celestin MD Work Phone: [facility] 07-19-2016 pneumococcal conjuga te vaccine, 13 valent Jered Celestin MD Work Phone: [facility] 07-19-2016 TD(adult) unspecifie d formulation Jered Celestin MD Work Phone: [facility] 07-19-2016 tetanus and diphther ia toxoids, adsorbed, preservative free, for adult use (2 Lf of tetanus toxoid and 2 Lf of diphtheria toxoid) Jered Celestin MD Work Phone: [facility] 10-14-2015 influenza, seasonal, injectable Jered Celestin MD Work Phone: [facility] 10-14-2014 pneumococcal polysaccharide vaccine, 23 valent Jered Celestin MD Work Phone: [facility] Payers Date Payer Category Payer Medicaid [id number] 2023 Private Health Insurance [id number] 2023 Medicare [id number] 2023 Private Health Insurance [id number] 2017 Medicaid [id number] 2017 Medicare [id number] 1959 Medicaid [id number] 1959 Medicare [id number] 2.1 [id number] 1959 Medicare [id number] 1938 Unknown [id number] 2.16.8 40.1.613602.3.579.2.175 1938 Unknown [id number] 2.16.84 0.1.750129.3.579.2.593 1938 Unknown [id number] 2.16.84 0.1.831090.3.579.2.593 1938 Unknown [id number] 2.16.84 0.1.871288.3.579.2.593 1938 Unknown [id number] 2.16.84 0.1.851704.3.579.2.593 1938 Unknown [id number] 2.16.84 0.1.810668.3.579.2.593 1938 Unknown [id number] 2.16.84 0.1.814435.3.579.2.593 1938 Unknown [id number] 2.16.84 0.1.203463.3.579.2.593 1938 Unknown [id number] 2.16.8 40.1.215505.3.579.2.718 1938 Unknown [id number] 2.16.8 40.1.926273.3.579.2. 1938 Unknown [id number] 2.16.8 40.1.816583.3.579.2. 1938 Unknown [id number] 2.16.8 40.1.298372.3.579.2. 1938 Unknown [id number] 2.16.8 40.1.887068.3.579.2. 1938 Unknown [id number] 2.16.8 40.1.100638.3.579.2. 1938 Unknown [id number] 2.16.8 40.1.150474.3.579.2.8 1938 Unknown [id number] 2.16.8 40.1.883283.3.579.2. 1938 Unknown [id number] 2.16.8 40.1.003280.3.579.2.8 1938 Unknown [id number] 2.16.8 40.1.576352.3.579.2. 1938 Unknown [id number] 2.16.84 0.1.681759.3.579.2.8 1938 Unknown [id number] 2.16.84 0.1.274351.3.579.2. 1938 Unknown [id number] 2.16.84 0.1.583661.3.579.2.1259 1938 Unknown [id number] 2.16.840. 1.684200.3.579.2.1258 1938 Unknown [id number] 2.16.8 40.1.056143.3.579.2.1286 1938 Unknown [id number] 2.16.8 40.1.386955.3.579.2.1286 1938 Unknown [id number] 2.16.84 0.1.674636.3.579.2.1286 1938 Unknown [id number] 2.16.8 40.1.205746.3.579.2.1286 1938 Unknown [id number] 2.16.84 0.1.429054.3.579.2.1286 Social History Date Type Detail Facility Start: 12-06-2020 End: 10-01-2023 Sex Assigned At [facility] Start: 04-05-2023 End: 11-01-2023 Tobacco smoking status NHIS Never smoked tobacco [facility] History of tobacco use Passive smoker [facility] Start: 04-05-2023 End: 11-01-2023 Tobacco use and exposure Smokeless tobacco non-user [facility] Start: 11-01-2023 End: 01-23-2024 Alcohol intake Ex-drinker (finding) [facility] Start: 12-06-2020 End: 10-01-2023 History of Social function [facility] Has the [employer], or [employer] threatened to shut off services in your home in past 12Mo No [facility] Are you now , , , , never or living with a partner? Never [facility] How often to you hav e a drink containing alcohol? Never [facility] How many standard drinks containing alcohol do you have on a typical day? Patient does not drink [facility] Do you feel stress - tense, restless, nervous, or anxious, or unable to sleep at night because your mind is troubled all the time - these days [OSQ] Not at all [facility] Start: 1940 Sex Assigned At Not on file P [facility] Medical Equipment Procedure Code Equipment Code Equipment Origin al Text Equipment Identifier Dates Lens Iol Ultrase rt 18.0d - [id number] - [id number] Start: 12-06-2020 USE FOUR TIMES A DAY. ICD 10 E11.65 [id number] Start: 01-13-2023 USE DIRECTED 3 TIMES A DAY [id number] Start: 12-17-2022 USE FOUR TIMES A DAY. ICD 10 E11.65 [id number] Start: 01-13-2023 USE DIRECTED 3 TIMES A DAY [id number] Start: 12-17-2022 Clinical Notes 09-04-2021 to 01-23-2024 Cari Napoles, BEHAVIORAL INTERVENTION SPECIALIST-NREMT - 01/23/2024 8:00 AM EDT Note Date [...] disease, with long-term current use of insulin ([facility]) Stasis dermatitis of lower extremity due to chronic peripheral vascular hypertension Mixed hyperlipidemia - Comprehensive metabolic panel; Future - Lipid panel; Future Pulmonary hypertension ([facility]) PAF (paroxysmal atrial fibrillation) ([facility]) Fibrosis of lung ([facility]) Morbid obesity ([facility] Her blood sugars sound good, keep apt [...] Perry 01/23/24 1008 documented in this encounter [facility] 01-23-2024 Evaluation note Diagnosis Type 2 diabetes mellitus with stage 3a chronic kidney disease, with long-term current use of insulin ([facility])- Primary Stasis dermatitis of lower extremity due to chronic peripheral vascular hypertension Mixed hyperlipidemia Pulmonary hypertension ([facility]) Other chronic pulmonary heart diseases PAF (paroxysmal atrial fibrillation) ([facility]) Atrial fibrillation Fibrosis of lung ([facility]) Postinflammatory pulmonary fibrosis Morbid obesity ([facility]) Morbid obesity documented in this encounter [facility]03-07-2024 History of Present illness Narrative* Cari Napoles, BEHAVIORAL INTERVENTION SPECIALIST-NREMT - 01/09/2024 10:40 AM EST Subjective Patient [...] Viral URI with cough Other orders - rflabxdfadqjfpz-umjrarjlv-HS 2-30-10 mg/5 mL syrup; Take 5 mL by mouth 4 (four) times a day as needed for allergies. Negative for influenza and covid Afebrile and lungs clear, will treat symptomatically and keep hydrated, rest She is to return for her DM apt on 01/19 ALEXANDER Perry 01/09/24 1214 [facility] History of Present illness Narrative* Silva Sanders [...] needed if problems arise. documented in this encounterUniversity Health [facility]wood Medical [id number] History of Present illness Narrative* Jered Celestin MD - 11/01/2023 11:45 AM EST Images from the original note were not included. Jered Celestin MD, [facility] Chaz Francis, [place], [place] [address] [place] [address] Name: Joycelyn Juarez : 1940 Gender: female PCP: ALEXANDER HOOPER Age: 82 y.o. PCP Visit Date: 10/30/23 CHIEF COMPLAINT: Joycelyn Juarez is an 82 y.o. female Here for follow up visit. Moving to [facility]. Doing well. No chest pain. Stable dyspnea. Props up in bed and using 2L O2 with CPAP. No PND. No LH, falls or syncope. Using walker. No palpitations. No bleeding or TIAs. No edema. Weight stable. PAST MED/SURG HISTORY: Past Medical History: Diagnosis Date Acute kidney failure ([facility]) 09/17/2019 Acute postoperative respiratory insufficiency 01/28/2023 Asthma Cataract Diabetes mellitus type 2, controlled ([facility]) Gout History of loop recorder Hyperlipidemia Hypothyroidism Leukocytosis 09/17/2019 Past Surgical History: Procedure Laterality Date CARDIOVERSION EXTRACTION CATARACT INTRAOCULAR LENS Left 12/06/2020 Performed by Ansley Sanders MD at [facility] E[facility] SURGERY HERNIA REPAIR INSERTION LOOP RECORDER [...] min Stress: No Stress Concern Present (10/01/2023) [employer] - Occupational Stress Questionnaire Feeling of Stress : Not at all Social Connections: Socially Isolated (10/01/2023) Social Connection and Isolation Panel [NHANES] Frequency of Communication with Friends and Family: Once a week Frequency of Social Gatherings with Friends and Family: Never Attends [employer] Services: Never Active Member of Clubs or [...] DAY READER) misc, FreeStyle Glo 14 Day [place], Disp: , Rfl: flash glucose sensor (FREESTYLE [...] Disp: , Rfl: TRUE METRIX GLUCOSE METER [facility] [place] TO TEST BLOOD SUGAR THREE TIMES DAILY, [...] leave in Testing and records reviewed in [facility] Everywhere and other outside facilities, and are documented under CV database and testing. The note was completed using EMR. Every effort was made to ensure accuracy; however, inadvertent computerized curriculum and instruction director errors may be present. Jered Celestin MD documented in this encounterOhioHealth Arthur G.H. Bing, MD, Cancer CenterIdentia [id number] Evaluation note* Encounter Date Diagnosis Assessment Notes [...] however she feels she needs the steroids. 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) Alegría Other 03-31-2022 Evaluation note* Encounter Date Diagnosis Assessment Notes Treatment Notes Treatment Clinical Notes Jan, 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) Jan, 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) Alegría Other 03-02-2022 Evaluation note* Encounter Date Diagnosis Assessment Notes Treatment Notes Treatment Clinical Notes Jan, Pulmonary fibrosis (ICD-10 - J84.10) Jan, 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 Medical History Cryptogenic organizing pneumonia Hospitalization History [facility] 09/05 021 Alegría Other Evaluation note* Diagnosis PAF (paroxysmal atrial fibrillation) ([facility] Primary Atrial fibrillation Abnormal echocardiogram Nonspecific (abnormal) findings on radiological and other examination of other intrathoracic organs Essential hypertension Unspecified essential hypertension Nonrheumatic mitral valve regurgitation LVH (left ventricular hypertrophy) Cardiomegaly Pulmonary hypertension ([facility]) Other chronic pulmonary heart diseases S/P ablation of atrial fibrillation Other postprocedural status Healthcare maintenance Atrial enlargement, bilateral DESTINY (obstructive sleep apnea) Obstructive sleep apnea (adult) (pediatric) Bilateral leg edema Edema Hyperlipidemia, unspecified hyperlipidemia type Current use of long-term anticoagulation Abnormal ECG Nonspecific abnormal electrocardiogram (ECG) (EKG) History of radiofrequency ablation (RFA) for complex left atrial arrhythmia 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 blind 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 (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 anticoagulants Long-term (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 anticoagulants [facility] Diagnosis Polyneuropathy Unspecified hereditary and idiopathic peripheral neuropathy [facility] Diagnosis Mixed hyperlipidemia [facility] Diagnosis Onychomycosis- Primary Dermatophytosis of nail 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 ([facility]) Pain in both feet Healed foot ulcer documented in this encounter [facility]* Diagnosis Flu-like symptoms- Primary Viral [...] Health SystemInstructionsNot on filedocumented in this encounter [facility] Summary Purpose Family History No [...] DATE CREATED AUTHOR AUTHOR'S ORGANIZ ATION 01/13/2019 [facility] DATE CREATED AUTHOR AUTHOR'S ORGANIZ ATION 12/05/2022 [facility] DATE CREATED AUTHOR AUTHOR'S ORGANIZ ATION 05/16/2023 [facility] DATE CREATED AUTHOR AUTHOR'S ORGANIZ ATION 2023 [facility] EPIC DATE CREATED AUTHOR AUTHOR'S ORGANIZ ATION 01/24/2024 [facility] DATE CREATED AUTHOR AUTHOR'S ORGANIZ ATION 01/25/2024 [facility] REASON FOR VISIT (unrecogniz ed section and content) Reason Comments Follow-up Reason Comments Med Refill Reason Comments Cough Reason Comments Hypertension Hyperlipidemia Care Teams (unrecognized sec tion and content) Tankerman Relationship Specialty Start Date End Date PapitoCari greggJacquiLUIS Alvarado[facility] [address] [place] [address] PCP - General Internal Medicine 07/22/23 Tankerman Relationship Specialty Start Date End Date PapitoCari greggJacquiLUIS Alvarado-NREMT [address] [place] [address] PCP - General Internal Medicine 07/22/23 Tankerman Relationship Specialty Start Date End Date PapitoCari greggJacquiLUIS Alvarado-NREMT [address] [place] [address] PCP - General Internal Medicine 07/22/23 Tankerman Relationship Specialty Start Date End Date Unallocated, [facility] [address] [place] [address] PCP - General 04/02/23 Tankerman Relationship Specialty Start Date End Date Unallocated, [facility] [address] [place] [address] PCP - General 04/02/23 Tankerman Relationship Specialty Start Date End Date Cari Napoles, BEHAVIORAL INTERVENTION SPECIALIST-NREMT [address] [place] [facility] [place] [address] PCP - General Internal Medicine 07/22/23 Tankerman Relationship Specialty Start Date End Date Cari Napoles, BEHAVIORAL INTERVENTION SPECIALIST-NREMT [address] [place] [facility] [place] [address] PCP - General Internal Medicine 07/22/23 Tankerman Relationship Specialty Start Date End Date Cari Napoles, BEHAVIORAL INTERVENTION SPECIALIST-NREMT [address] [place] [facility] [place] [address] PCP - General Internal Medicine 07/22/23 Tankerman Relationship Specialty Start Date End Date Cari Napoles, BEHAVIORAL INTERVENTION SPECIALIST-NREMT [address] [place] [facility] [place] [address] PCP - General Internal Medicine 07/22/23 FOR [...] BE BASED ON THE PRIMARY CLINICAL RECORDS. [facility] provides no warranty or guarantee of the accuracy or completeness of information in this document.
[2024-03-04 07:36] LABS: Microalbum Creatinine Ratio Ur 37.6 mg/g (0.0-29.9); Microalbumin Urine Random <1.3 mg/dL (<=30.0)
[2024-03-04 07:39] LABS: Albumin Level 3.6 g/dL (3.4-5.0); Anion Gap 16.2; BUN Creatinine Ratio 22.7; Calcium 9.2 mg/dL (8.5-10.1); Chloride 101 mmol/L (98-107); Chol HDL Ratio 2.6; Cholesterol 124 mg/dL (<=200); Estimated GFR (African America 46 (>=60); Estimated GFR (Non-African Ame 38 (>=60); Glucose 137 mg/dL (74-106); HDL Cholesterol 48 mg/dL (40-60); LDL Cholesterol Calculated 51.2 mg/dL; Phosphorus 4.3 mg/dL (2.6-4.7); Potassium 4.2 mmol/L (3.5-5.1); Sodium 140 mmol/L (136-145); Triglycerides 124 mg/dL (<=150); VLDL CHOLESTEROL 24.8 mg/dL
== END 2024-03-04 06:37 | disposition home or self-care (01) ==
LOC: LAB 06:36
PROVIDERS: PCP Family Medicine; Visit Provider Internal Medicine
DX: E11.65 Type 2 diabetes mellitus with hyperglycemia (principal); E78.2 Mixed hyperlipidemia; I10 Essential (primary) hypertension
CPT/HCPCS: 36415; 80061; 80069; 82043; 82306; 82570

== ENCOUNTER 2024-09-04 12:32 | Outpatient (OUT) | payer MEDICARE, MEDICAID, SELFPAY ==
--- NOTE | 2024-09-04 13:00 | CA_ITS ---
Patient Name: JOYCELYN HAMM MR#: [id number] : 1940 Exam Date: 09/04/2024 Ordering Doctor: ARMIN RAMSEY ECHOCARDIOGRAM REPORT PROCEDURE: CA ECHO DOPPLER COMPLETE INDICATIONS: Abnormal ECG COMPARISON: None. DESCRIPTION: COMPLETE ECHOCARDIOGRAM Real-time transthoracic echocardiography with 2D, M-mode, spectral and color flow Doppler performed. QUALITY: Technically difficult due to patients condition and poor sound transmission. LEFT VENTRICLE: Normal chamber size. Moderate concentric left ventricular hypertrophy. Normal systolic function. LV EF: Normal left ventricular ejection fraction, (55%). DIASTOLIC: Grade II diastolic dysfunction. ATRIAL SEPTUM: LEFT ATRIUM: Mild dilatation. RIGHT ATRIUM: Normal chamber size. RIGHT VENTRICLE: Normal chamber size. Normal right ventricular systolic function. TRICUSPID VALVE: Normal mobility and thickness. No stenosis with trivial regurgitation. Doppler studies reveal moderately (45-60) elevated right sided pressures. RVSP 52 mmHg MITRAL VALVE: Mildly thickened with normal mobility. No evidence of mitral valve stenosis. Mild mitral annular calcification. No mitral regurgitation. AORTIC VALVE: Normal trileaflet appearance. Mildly calcified aortic valve. Normal leaflet mobility. No evidence of aortic valve stenosis. No aortic regurgitation. AORTIC ROOT: Normal diameter and appearance. PULMONIC VALVE: Not well visualized. PERICARDIUM: No evidence of pericardial effusion. IVC: IVC is dilated (2.3 cm), does not fully collapse. PLEURA: CONCLUSION: 1. Moderate concentric left ventricular hypertrophy with normal systolic function. LVEF is estimated at 55%. 2. Normal right ventricular size and systolic function. 3. Grade 2 diastolic dysfunction. 4. No significant valvular dysfunction. 5. Moderately elevated right-sided pressures. RVSP is 52 mmHg. Adult Echocardiography Procedure Report Left Ventricle LVEDD (3.7 - 5.6 cm): 5.30 cm LVESD (2.2 - 4.0 cm): 3.38 cm LVIVS thickness (0.6 - 1.2 cm): 1.49 cm LVPW thickness (0.5 - 1.0 cm): 1.47 cm e': 0.07 m/s E - e': 12.02 LVOT Max Gradient: 2.99 mm[Hg] LVOT Area (cm2): 0.86 m/s Peak Velocity (LVOT): 0.86 m/s Mean Velocity (LVOT): 0.57 m/s LVOT Diameter 2.43 cm Left Atrium LA Volume Index (2D A2C): 35.79 ml/m2 Left Atrium Systolic Dimension: 4.14 cm Mitral Valve MV E to A Ratio: 1.10 Mitral Valve A-Wave Peak Velocity: 0.77 m/s Mitral Valve E-Wave Peak Velocity: 0.85 m/s Right Ventricle Aorta AO Root Diam: 3.17 cm Aortic Valve AoV Area (Peak Dirk): 3.19 cm2, 3.19 cm2 AoV Area (VTI): 3.37 cm2, 3.37 cm2 Peak Velocity(Antegrade Flow): 1.25 m/s Peak Gradient(Antegrade Flow): 6.27 mm[Hg] Mean Velocity(Antegrade Flow): 0.79 m/s Mean Gradient(Antegrade Flow): 2.94 mm[Hg] Velocity Time Integral: 25.03 cm Tricuspid Valve Peak Velocity (Regurgitant Flow): 3.05 m/s Pulmonic Valve Mean Gradient: 1.34 mm[Hg] Mean Velocity: 0.53 m/s Peak Velocity: 0.84 m/s, 1.00 m/s Peak Gradient: 3.98 mm[Hg], 2.82 mm[Hg] Right Atrium Right Atrium Systolic Pressure: 54.85 ml, 54.85 ml Dictated by: Gurpreet Louise M.D. on 09/04/2024 at 18:28 Approved by: Gurpreet Louise M.D. on 09/04/2024 at 18:31
== END 2024-09-04 12:33 | disposition home or self-care (01) ==
LOC: CARD 12:34
PROVIDERS: PCP Nurse Practitioner Family; Visit Provider Internal Medicine Cardiovascular Disease
DX: R94.31 Abnormal electrocardiogram [ECG] [EKG] (principal)
CPT/HCPCS: 93306

== ENCOUNTER 2025-02-12 04:06 | Emergency (ER) | payer MEDICARE, MEDICAID, SELFPAY ==
[2025-02-12] VITALS (21 sets, daily range): BP systolic 150–185; BP diastolic 58–86; PULSE 78–92; TEMP 36.7–37.1; O2SAT 89–95; BMI 48.7; BMI 32.9
--- NOTE | 2025-02-12 04:17 | PC.NURSE ---
this patient complains of Right lower leg pain onset 12/2024, this patient just complete Doppler and x-ray of this right lower leg and both negative. this patient complains of this right lower leg pain only occur when standing and walking
--- OUTSIDE RECORDS SUMMARY | 2025-02-12 04:18 | XMS_ITS | CCD ---
Author Organization [facility] Care Team Providers Care Campus Monitor Name Role Phone CHRISTIE ESTRADA Referring Unavailable RACHEL BLUNT Primary Care Unavailable CHRISTIE ESTRADA Admitting Unavailable CHRISTIE ESTRADA Attending Unavailable KITTY SINGH Consulting Unavailable TITO YANG Consulting Unavailable MAI CHOU Consulting Unavailable Danyel Gonzalez Unavailable LISA, DR RANDHAWA Admitting Unavailable MISC, DR BACK Primary Care Unavailable CHATTANOOGA, DR GIA Ralph Consulting Unavailable CHABAN, DR [...] Unavailable MISC, DR BACK Primary Care Unavailable DANAY HEBERT Admitting Unavailable DANAY HEBERT Attending Unavailable CORIEDANAY GRAHAM Consulting Unavailable MISC, DR BACK Admitting Unavailable MISC, DR BACK Attending Unavailable MISC, DR BACK Consulting Unavailable MISC, DR BACK Primary Care Unavailable ZIEBER, DR DEYA Aguilera Consulting Unavailable MISC, DR BACK Admitting Unavailable MISC, DR BACK Attending Unavailable MISC, DR BACK Primary Care Unavailable WEST, DR GIA Ralph Consulting Unavailable MISC, DR BACK Consulting Unavailable Evita Baker Unavailable Unallocated, [facility] Primary Care Provider MITCH Styles Nick Primary Care Provider Stephani, [facility] Attending Provider [phone] [facility], [facility] Attending Unavailable Stephani, Nick Primary Care Unavailable Stephani, Nick Admitting Unavailable CARI CARPIO Attending Unavailable KUNSCARIRADHA Referring Unavailable KUNS, RADHA Primary Care Unavailable KUNSCARI Attending Unavailable KUNS, RADHA Referring Unavailable KUNS, RADHA Primary Care Unavailable JERED CELESTIN Attending Unavailable KUNS, RADHA Referring Unavailable KUNS, RADHA Primary Care Unavailable KUNSCARIRADHA Attending Unavailable KUNS, RADHA Referring Unavailable KUNS, RADHA Primary Care Unavailable GUIBORD, RACHEL J Referring Unavailable GUIBORD, RACHEL J Primary Care Unavailable FURLONG, ADRIANNE G Referring Unavailable FURLONG, ADRIANNE G Primary Care Unavailable STEPHANI, NICK L Attending Unavailable STEPHANI, NICK L Referring Unavailable STEPHANI, NICK L Primary Care Unavailable KUNSCARIRADHA Referring Unavailable KUNS, RADHA Primary Care Unavailable JERED CELESTIN Referring Unavailable KUNS, RADHA Primary Care Unavailable STEPHANI, NICK L Referring Unavailable STEPHANI, NICK L Primary Care Unavailable KUNS, RADHA Referring Unavailable STEPHANI, NICK L Primary Care Unavailable STEPHANI, NICK L Referring Unavailable STEPHANI, NICK L Primary Care Unavailable STEPHANI, NICK L Primary Care Unavailable ARMIN PAREDES Attending Unavailable ARMIN RAMSEY Attending Unavailable MARYCRUZ Barnett Admitting Unavailable MARYCRUZ Barnett Attending Unavailable Givens, Keaton Primary Care Unavailable Belagavi, Chad C Primary Care Unavailable Dolce, Ramiro R Attending Unavailable Dolce, Ramiro R Admitting Unavailable Chon Keaton Admitting Unavailable Keaton Givens Attending Unavailable Givens, Keaton Primary Care Unavailable Dolce, Ramiro R Admitting Unavailable Dolce, Ramiro R Attending Unavailable Givens, Keaton Primary Care Unavailable Dolce, Ramiro R Attending Unavailable Dolce, Ramiro R Admitting Unavailable Givens, Keaton Primary Care Unavailable Dolce, Ramiro R Attending Unavailable Dolce, Ramiro R Admitting Unavailable Givens, Keaton Primary Care Unavailable Belagavi, Chad C Primary Care Unavailable Keaton Givens Attending Unavailable Givens, Keaton Primary Care Unavailable Freddie Doris Admitting Unavailable Doris Frazier Attending Unavailable Dolce, Ramiro R Attending Unavailable Dolce, Ramiro R Admitting Unavailable Keaton Givens Primary Care Unavailable Ramiro Corona R Attending Unavailable Nae Coronam R Admitting Unavailable Keaton Givens Primary Care Unavailable Chad Hwang Admitting Unavailable Chad Hwang Attending Unavailable Chad Hwang Primary Care Unavailable Keaton Givens Consulting Unavailable Stephani ALEXANDRA, Nick Unavailable Rachel Blunt MD Primary Care Provider [phone] Danay Hebert MD Primary Care Provider Rachel Blunt MD Primary Care Provider Yesika CHIEF SCIENTIST-PNEUMATIC TUBE OPERATORCari Primary Care Provider Stephani SMITH-PLANER OPERATOR, Nick Rojas Primary Care Provider Nick Styles MD Unavailable SILVA SANDERS Attending Unavailable SILVA SANDERS Attending Unavailable CHAYA BASS Attending Unavailable SILVA SANDERS Attending Unavailable DANAY HEBERT Attending Unavailable DANAY HEBERT Referring Unavailable SILVA SANDERS Attending Unavailable CARMEN SMITH Attending Unavailable CHAYA BASS Attending Unavailable JAHAIRA RODRIGUEZ Attending Unavailable CARMEN SMITH Referring Unavailable DANAY HEBERT Attending Unavailable Jahaira Rodriguez DO Attending Provider [phone] Carmen Zheng Primary Care Provider Medications Current Medications Medication Drug Class(es) Dates Sig (Normalized) Sig (Original) acetaminophen 325 mg oral tablet (20 sources) take 2 tablets by mouth every four hours as needed for pain acetaminophen (Tylenol) 325 MG tablet Take 650 mg by mouth every 4 (four) hours if needed for mild pain Active [id number] actuat albuterol 0.09 mg/actuat metered dose inhaler (20 sources) beta2-Adrenergic Agonist Start: 10-09-2023 take 2 puff(s) by inhalation four times daily as needed albuterol (PROVENTIL HFA;VENTOLIN HFA) 90 mcg/actuation inhaler INHALE 2 PUFFS 4 TIMES A DAY NEEDED 10/09/2023 Active Start: 10-09-2023 take 2 puff(s) by in halation four times daily as needed Albuterol Sulfate HFA 108 (90 Base) MCG/ACT 2 puffs Inhalation 4 times a day prn Oct, Active albuterol HFA (V entolin HFA) 90 mcg/act inhaler Active albuterol HFA (V entolin HFA) 90 mcg/act inhaler Ventolin HFA 90 mcg/actuation aerosol inhaler INHALE 2 PUFFS EVERY 3 TO 4 HOURS NEEDED Active allopurinol 300 mg oral tablet (20 sources) Xanthine Oxidase Inhibitor Start: 07-17-2024 take 1 tablet by mouth in the morning allopurinoL (ZYLOPRIM) 300 mg tablet Indications: Gouty arthropathy Take 1 tablet (300 mg total) by mouth in the morning. 30 tablet 5 07/17/2024 Active Start: 07-22-2023 End: 07-15-2024 take 1 tablet by mouth in the morning allopurinoL (ZYLOPRIM) 300 mg tablet Indications: Gouty arthropathy Take 1 tablet (300 mg total) by mouth in the morning. 30 tablet 5 06/22/2024 07/15/2024 Discontinued (Reorder) apixaban 5 mg oral tablet (20 sources) Factor Xa Inhibitor Start: 10-03-2022 End: 11-01-2023 take 1 tablet by mouth in the morning Eliquis 5 MG tablet Take 5 mg by mouth in the morning and 5 mg before bedtime. 10/03/2022 Active atorvastatin 40 mg oral tablet (20 sources) HMG-CoA Reductase Inhibitor Start: 07-17-2024 take 1 tablet by mouth in the morning atorvastatin (LIPITOR) 40 mg tablet Indications: Mixed hyperlipidemia Take 1 tablet (40 mg total) by mouth in the morning. 30 tablet 5 07/17/2024 Active Start: 07-22-2023 End: 07-15-2024 take 1 tablet by mouth in the morning atorvastatin (LIPITOR) 40 mg tablet Indications: Mixed hyperlipidemia Take 1 tablet (40 mg total) by mouth in the morning. 30 tablet 5 06/22/2024 07/15/2024 Discontinued (Reorder) benzonatate 200 mg oral capsule (15 sources) Non-narcotic Antitussive Start: 10-09-2023 End: 03-17-2024 take 1 capsule by mouth three times daily as needed for cough benzonatate (TESSALON PERLES) 200 mg capsule Take 1 capsule (200 mg total) by mouth 3 (three) times a day as needed for cough. 20 capsule 1 01/14/2024 Active Blood Glucose Monitoring Suppl (True Metrix Meter) w/Device kit (16 sources) Blood Glucose Monitoring Suppl (True Metrix Meter) w/Device kit 1 Device in the morning and 1 Device in the evening and 1 Device before bedtime. Active bumetanide 2 mg oral tablet (20 sources) Loop Diuretic Start: 07-22-2023 End: 07-17-2024 take 1 tablet by mouth once daily bumetanide (BUMEX) 2 mg tablet take 1 tablet by mouth daily 30 tablet 2 07/17/2024 Active calcium carbonate 1250 mg / cholecalciferol 200 unt oral tablet (20 sources) Vitamin D take 1 tablet by mouth once in the morning, then take 1 tablet by mouth once at bedtime Calcium Carbonate-Vitamin D (Oyster Shell Calcium/D) 500-5 MG-MCG tablet Take 1 tablet by mouth in the morning and 1 tablet before bedtime. Active cetirizine hydrochloride 10 mg oral tablet (20 sources) Histamine-1 Receptor Antagonist Start: 07-17-2024 take 1 tablet by mouth in the morning cetirizine (ZyrTEC) 10 mg tablet Take 1 tablet (10 mg total) by mouth in the morning. 30 tablet 5 07/17/2024 Active Start: 07-22-2023 End: 07-15-2024 take 1 tablet by mouth in the morning cetirizine (ZyrTEC) 10 mg tablet Take 1 tablet (10 mg total) by mouth in the morning. 30 tablet 5 06/22/2024 07/15/2024 Discontinued (Reorder) Continuous Glucose Mutuel Department Manager (FreeStyle William 2 [place] Heart) device (14 sources) Start: 10-29-2024 Continuous Glu cose Mutuel Department Manager (FreeStyle William 2 [place] [facility]) device Indications: Type 2 diabetes mellitus with hyperglycemia, with long-term current use of insulin ([facility]) 1 each every 14 (fourteen) days 1 each 10/29/2024 Active Continuous Gluco se Mutuel Department Manager (FreeStyle William 2 [place] [facility]) device 1 each every 14 (fourteen) days Active CPAP Machine (3 sources) CPAP Machine Active diclofenac sodium 0.01 mg/mg topical gel (16 sources) Nonsteroidal Anti-inflammatory Drug diclofenac sodium 1 % gel Apply 2 g topically in the morning and 2 g at noon and 2 g in the evening and 2 g before bedtime. Active 24 hr dilTIAZem hydrochloride 120 mg extended release oral capsule (20 sources) Calcium Channel Alla Start: take 1 capsule by mouth every twenty-four hours in the morning dilTIAZem (TIAZAC) 120 MG 24 hr capsule Take 1 capsule (120 mg total) by mouth in the morning. 180 capsule 1 06/17/2024 Active Start: 04-30-2024 End: 06-17-2024 take 1 capsule by mouth once daily in the morning, then take 1 capsule by mouth once daily at bedtime dilTIAZem (TIAZAC) 120 MG 24 hr capsule TAKE 1 CAPSULE BY MOUTH EVERY MORNING & TAKE 1 CAPSULE EVERY NIGHT AT BEDTIME 180 capsule 1 04/30/2024 06/17/2024 Discontinued (Reorder) Start: 07-22-2023 End: 04-30-2024 take 1 capsule by mouth in the morning, then take 1 capsule by mouth every twenty-four hours at bedtime dilTIAZem CD (CARDIZEM CD) 120 mg 24 hr capsule Take 1 capsule (120 mg total) by mouth in the morning and 1 capsule (120 mg total) before bedtime. 60 capsule 6 07/22/2023 04/30/2024 Discontinued dilTIAZem ER (Ti azac) 120 MG 24 hr capsule 120 mg Daily Active dilTIAZem HCl 12 0 MG as directed Orally Active docusate sodium 100 mg oral capsule (5 sources) take 1 capsule by mouth in the morning docusate sodium (Colace) 100 MG capsule Take 100 mg by mouth in the morning and 100 mg before bedtime. Active doxycycline hyclate 100 mg oral tablet (2 sources) Tetracycline-c lass Drug Start: 10-09-2023 End: 11-01-2023 take 1 tablet by mouth twice daily doxycycline (VIBRA-TABS) 100 mg tablet TAKE 1 TABLET BY MOUTH TWICE A DAY FOR 10 DAYS 0 10/09/2023 11/01/2023 Discontinued (Therapy completed) flash glucose scanning reader (FREESTYLE WILLIAM 14 DAY READER) misc (20 sources) flash glucose sc anning reader (FREESTYLE WILLIAM 14 DAY READER) misc FreeStyle William 14 Day [place] Heart Active flash glucose sc anning reader (FREESTYLE WILLIAM 14 DAY READER) misc FreeStyle William 14 Day [place] [facility] 0 Active flash glucose sensor (FREEST YLE WILLIAM 14 DAY SENSOR) kit (20 sources) flash glucose se nsor (FREESTYLE WILLIAM 14 DAY SENSOR) kit FreeStyle William 14 Day Sensor kit Active flash glucose se nsor (FREESTYLE WILLIAM 14 DAY SENSOR) kit FreeStyle William 14 Day Sensor kit 0 Active 60 actuat fluticasone propionate 0.25 mg/actuat / salmeterol 0.05 mg/actuat dry powder inhaler (20 sources) Corticosteroid, beta2-Adrenergic Agonist Fluticasone-Adam meterol 250-50 MCG/ACT aerosol powder Active take 1 puff(s) by in halation twice daily Fluticasone-Salmeterol 250-50 MCG/ACT ae rosol powder Advair Diskus 250 mcg-50 mcg/dose powder for inhalation Inhale 1 puff twice a day by inhalation route for 30 days. Active gabapentin 100 mg oral capsule (20 sources) Anti-epileptic Agent Start: 05-17-2024 End: 07-17-2024 take 1 capsule by mouth once daily at bedtime gabapentin (NEURONTIN) 100 mg capsule Indications: Polyneuropathy take 1 capsule by mouth every night at bedtime 30 capsule 1 07/17/2024 Active Start: 05-17-2024 take 1 capsule by [facility] once daily gabapentin (NEURONTIN) 100 mg capsule Indications: Polyneuropathy Take 1 capsule (100 mg total) by mouth nightly. Not due for refill until 05/17/24 28 capsule 05/17/2024 Active Start: 02-27-2024 End: 06-17-2024 take 2 capsules by mouth once daily in the morning, then take 1 capsule by mouth at lunch, then take 1 capsule by mouth once, then take 2 capsules by mouth once daily at bedtime gabapentin (NEURONTIN) 300 mg capsule Indications: Polyneuropathy TAKE 2 CAPSULES BY MOUTH EVERY MORNING, TAKE 1 CAPSULE BY MOUTH AT LUNCH, TAKE 1 CAPSULE BY MOUTH EVERY AFTERNOON, AND TAKE 2 CAPSULES BY MOUTH EVERY NIGHT AT BEDTIME 180 capsule 2 06/17/2024 Active Start: 02-27-2024 End: 02-19-2024 take 2 capsules by mouth once daily [...] CAPSULES EVERY NIGHT AT BEDTIME 180 capsule 02/27/2024 02/19/2024 Discontinued (Reorder) Start: 02-27-2024 take 2 capsules by m outh once daily in the morning, then take [...] CAPSULES EVERY NIGHT AT BEDTIME 180 capsule 02/27/2024 Active Start: 02-27-2024 take 2 capsules by m outh once daily in the morning, then take [...] CAPSULES EVERY NIGHT AT BEDTIME 180 capsule 02/27/2024 Active Start: 02-27-2024 take 2 capsules by m outh once daily in the morning, then take [...] CAPSULES EVERY NIGHT AT BEDTIME 180 capsule 02/27/2024 Active Start: 07-22-2023 End: 02-04-2025 take 1 capsule by mouth once daily at bedtime gabapentin (NEURONTIN) 100 mg capsule Indications: Polyneuropathy take 1 capsule by mouth every night at bedtime 30 capsule 2 02/02/2024 Active Start: 04-02-2023 End: 02-14-2024 gabapentin (Neurontin) 300 M G capsule 300 mg 1 capsules in the am, 1 capsule in the afternoon, and 2 capsules at bedtime 04/02/2023 Active Start: 04-02-2023 gabapentin (Ne urontin) 300 MG capsule 300 mg. 04/02/2023 Active insulin aspart (NovoLOG) 100 UNIT/ML injection (20 sources) insulin aspart ( NovoLOG) 100 UNIT/ML injection Active insulin aspart ( NovoLOG) 100 UNIT/ML injection as directed Injection Active insulin aspart ( NovoLOG) 100 UNIT/ML injection as directed Injection 0 Active insulin aspart, human 100 unt/ml injectable solution (20 sources) Insulin Analog inject 0.4 mL by subcutaneous injection in the morning insulin aspart U-100 (NovoLOG) 100 unit/mL injection Inject 0.4 mL (40 Units total) under the skin in the morning and 0.4 mL (40 Units total) at noon and 0.4 mL (40 Units total) in the evening. Inject before meals. Takes 20 units am, 30 units lunch and 30 unit supper.. Active NovoLOG 100 UNIT /ML as directed Subcutaneous Active insulin detemir 100 unt/ml injectable solution (20 sources) Insulin Analog insulin detemir (Levemir) 100 UNIT/ML injection Active inject 0.2 mL by sub cutaneous injection in the morning insulin detemir U-100 (LEVEMIR) 100 unit/mL injection Inject 0.2 mL (20 Units total) under the skin in the morning and 0.2 mL (20 Units total) before bedtime. 80 units at night. Active Levemir 100 UNIT /ML as directed Subcutaneous Active insulin glargine 100 unt/ml injectable solution (2 sources) Insulin Analog inject 60 [IU] by subcutaneous injection at bedtime insulin glargine (Lantus) 100 UNIT/ML injection Inject 60 Units under the skin at bedtime Active 3 ml insulin lispro 100 unt/ml pen injector (20 sources) Insulin Analog Start: 03-04-2023 HumaLOG KWIKPEN 100 UNIT/ML injection 03/04/2023 Active Start: 03-04-2023 inject 20 [IU] by man bcutaneous injection at breakfast, then inject 30 [IU] by subcutaneous injection at dinner HumaLOG KWIKPEN 100 UNIT/ML injection INJECT 20 UNITS UNDER THE SKIN AT BREAKFAST, 30 UNITS AT LUNCH AND DINNER 03/04/2023 Active insulin lispro 25 unt/ml / insulin lispro protamine, human 75 unt/ml injectable suspension (20 sources) Insulin Analog insulin lispro p rotamine-insulin lispro (HumaLOG Mix 75-25) (75-25) 100 UNIT/ML suspension injection Inject 20 Units under the skin in the morning and 20 Units in the evening. Inject with meals. Active insulin lispro p rotamine-insulin lispro (HumaLOG Mix 75-25) (75-25) 100 UNIT/ML suspension injection Inject 30 Units under the skin in the morning and 30 Units in the evening. Inject with meals. Active lactic acid 50 mg/ml topical lotion (20 sources) Start: 07-22-2023 ammonium lacta te (LAC-HYDRIN FIVE) 5 % lotion Apply 1 application. topically daily. 226 g 1 07/22/2023 Active ammonium lactate (Lac-Hydrin Five) 5 % lotion Apply 1 Application topically 2 (two) times a day as needed for dry skin Active levothyroxine sodium 0.137 mg oral tablet (20 sources) l-Thyroxine Start: 06-24-2022 End: 07-15-2024 take 1 tablet by mouth once daily levothyroxine (Synthroid, Levoxyl) 137 MCG tablet levothyroxine 137 mcg tablet TAKE 1 TABLET BY MOUTH EVERY DAY 06/24/2022 Active take 1 tablet by tierra th once daily in the morning Levothyroxine Sodium 137 MCG 1 tablet in the morning on an empty stomach Orally Once a day Active linagliptin 5 mg oral tablet (20 sources) Dipeptidyl Peptidase 4 Inhibitor Start: 06-24-2022 take 1 tablet by mouth once daily Tradjenta 5 MG tablet Take 5 mg by mouth Daily 06/24/2022 Active magnesium gluconate 500 mg oral tablet (20 sources) take 1 tablet by mouth once daily magnesium, as gluconate, (Magonate) 500 (27 Mg) MG tablet Take 27 mg by mouth Daily Active methylPREDNISolone (2 sources) Corticosteroid Start: 10-09-2023 End: 11-01-2023 methylPREDNISolone (MEDROL, MARCK,) 4 mg tablet TAKE 6 TABLETS ON DAY 1 DIRECTED ON PACKAGE AND DECREASE BY 1 TAB EACH DAY FOR A TOTAL OF 6 DAYS 0 10/09/2023 11/01/2023 Discontinued (Therapy completed) Start: 10-09-2023 Medrol 4 MG as directed Orally As Directed for 6 days Oct, Active 24 hr mirabegron 25 mg extended release oral tablet (20 sources) beta3-Adrenergic Agonist Start: 07-17-2024 take 2 tablets by mouth every twenty-four hours in the morning mirabegron (MYRBETRIQ) 25 mg tablet extended release 24 hr Take 2 tablets (50 mg total) by mouth in the morning. 60 tablet 5 07/17/2024 Active Start: 06-22-2024 End: 07-15-2024 take 2 tablets by mouth every twenty-four hours in the morning mirabegron (MYRBETRIQ) 25 mg tablet extended release 24 hr Take 2 tablets (50 mg total) by mouth in the morning. 60 tablet 5 06/22/2024 07/15/2024 Discontinued (Reorder) Start: 12-05-2023 End: 02-04-2025 take 2 tablets by mouth once daily [...] 25 MG 24 hr tablet 25 mg. Active nystatin 100 unt/mg topical powder (20 sources) Polyene Antifungal Start: 09-02-2024 nystatin (M ycostatin) [id number] UNIT/GM powder Apply 1 application topically in the morning and 1 application before bedtime. Under breasts and abdominal folds. 09/02/2024 Active Start: 02-01-2023 End: 10-14-2023 nystatin (MYCOSTATIN) cream Apply 1 application. topically in the morning and 1 application. before bedtime. 30 g 1 02/01/2023 10/14/2023 Discontinued (Therapy completed) 24 hr oxybutynin chloride 10 mg extended release oral tablet (3 sources) Cholinergic Muscarinic Antagonist Start: 01-18-2025 oxybutynin XL (Ditropan-XL) 10 MG 24 hr tablet 01/18/2025 Active oxygen as ordered (3 sources) oxygen as ordere d Active predniSONE 10 mg oral tablet (2 sources) Start: 03-17-2024 End: 03-24-2024 take 1 tablet by mouth in the morning predniSONE (DELTASONE) 10 mg tablet Indications: Tendonitis of shoulder, left Take 1 tablet (10 mg total) by mouth in the morning for 7 days. 7 tablet 03/17/2024 03/24/2024 Active predniSONE 10 MG 4 daily for 7 days, 3 daily for 7 days 2 daily for 7 days, then 1 daily for21 days Orally Once a day for 42 day(s) Active rOPINIRole 0.5 mg oral tablet (20 sources) Nonergot Dopamine Agonist Start: 09-06-2022 End: 07-15-2024 take 1 tablet by mouth three times daily rOPINIRole (REQUIP) 0.5 mg tablet Take 1 tablet (0.5 mg total) by mouth 3 (three) times a day. 90 tablet 5 07/17/2024 Active Start: 09-06-2022 End: 01-14-2024 take 1 tablet by mouth once daily rOPINIRole (REQUIP) 0.5 mg tablet Take 1 tablet (0.5 mg total) by mouth nightly. 90 tablet 3 07/23/2023 01/14/2024 Discontinued Start: 09-06-2022 rOPINIRole (Re quip) 0.25 MG tablet 0.25 mg 1 (one) time each day at the same time. 09/06/2022 Active spironolactone 25 mg oral tablet (20 sources) Aldosterone Antagonist Start: 03-29-2023 End: 07-15-2024 take 1 tablet by mouth in the morning spironolactone (Aldactone) 25 MG tablet Take 25 mg by mouth in the morning and 25 mg before bedtime. 03/29/2023 Active TRUE METRIX GLUCOSE METER misc (20 sources) Start: 12-14-2022 TRUE METRIX GLUCOSE METER misc TO TEST BLOOD SUGAR THREE TIMES DAILY 12/14/2022 Active Start: 12-14-2022 TRUE METRIX GL UCOSE METER misc TO TEST BLOOD SUGAR THREE TIMES DAILY 0 12/14/2022 Active Completed/Discontinued Medications Medication Drug Class(es) Dates Sig (Normalized) Sig (Original) brompheniramine maleate 0.4 mg/ml / dextromethorphan hydrobromide 2 mg/ml / pseudoephedrine hydrochloride 6 mg/ml oral solution (10 sources) alpha-Adrenergic Agonist, Uncompetitive O-zkupej-F-aspartat e Receptor Antagonist, Sigma-1 Agonist Start: 01-09-2024 End: 03-17-2024 take 5 mL by mouth four times daily as needed brompheniramine-p seudoeph-DM 2-30-10 mg/5 mL syrup Take 5 mL by mouth 4 (four) times a day as needed for allergies. 120 mL 1 01/09/2024 03/17/2024 Discontinued (Therapy completed) lidocaine 0.05 mg/mg medicated patch (20 sources) Antiarrhythmic, Amide Local Anesthetic End: 02-04-2025 lidocaine (Lidoderm) 5 % patch lidocaine 5 % topical patch 02/04/2025 Discontinued (Therapy completed) simvastatin 20 mg oral tablet (20 sources) HMG-CoA Reductase Inhibitor End: 02-04-2025 simvastatin (Zocor) 20 MG tablet 20 mg. 02/04/2025 Discontinued (Therapy completed) SITagliptin 100 mg oral tablet (20 sources) Dipeptidyl Peptidase 4 Inhibitor End: 02-04-2025 SITagliptin (Januvia) 100 MG tablet 100 mg. 02/04/2025 Discontinued (Therapy completed) Problems Active Problems Problem Classification Problem Date Documented Date Episodic/Chronic Administrative/social admission (4 sources) Patient encounter status; Translations: [Dietary counseling and surveillance] 10-13-2024 Episodic Cardiac dysrhythmias (20 sources) Paroxysmal atrial fibrillation; Translations: [Paroxysmal atrial fibrillation] Onset: 06-11-2018 04-05-2023 Chronic Chronic kidney disease (4 sources) Chronic kidney disease stage 3B ; Translations: [Stage 3b chronic kidney disease (HCC) (CMS/HCC)] 10-13-2024 Chronic Chronic kidney disease (2 sources) Chronic kidney disease; Translations: [Chronic kidney disease, stage 3a] Onset: 07-22-2023 Chronic obstructive pulmonary disease and bronchiectasis (1 source) Bronchitis, not specified as acute or chronic Episodic Chronic ulcer of skin (20 sources) Chronic ulcer of foot; Translations: [Non-pressure chronic ulcer of other part of unspecified foot with unspecified severity] Onset: 04-05-2023 Resolved: 04-17-2023 04-05-2023 Chronic Conduction disorders (20 sources) Incomplete right bundle branch block; Translations: [Unspecified right bundle-branch block] Onset: 01-15-2018 Resolved: 10-24-2022 04-05-2023 Chronic Diabetes mellitus with complications (20 sources) Type 2 diabetes mellitus with hyperglycemia; Translations: [Type 2 diabetes mellitus with ulcer] Onset: 01-18-2016 Resolved: 01-28-2023 Chronic Diseases of white blood cells (20 sources) Leukocytosis; Translations: [Elevated white blood cell count, unspecified] Onset: 09-17-2019 Resolved: 01-28-2023 04-05-2023 Chronic Disorders of lipid metabolism (20 sources) Mixed hyperlipidemia; Translations: [Hyperlipidemia] Onset: 02-05-2018 04-05-2023 Chronic Essential hypertension (20 sources) Essential (primary) hypertension; Translations: [Essential hypertension] Onset: 02-05-2018 04-05-2023 Chronic Genitourinary symptoms and ill-defined conditions (20 sources) Urge incontinence; Translations: [Mixed urinary incontinence] Onset: 07-22-2023 07-22-2023 Chronic Gout and other crystal arthropathies (20 sources) Gouty arthropathy; Translations: [Gout, unspecified] Onset: 01-18-2016 01-28-2023 Chronic Heart valve disorders (20 sources) Rheumatic tricuspid insufficiency; Translations: [Aortic valve sclerosis] Onset: 07-14-2018 04-05-2023 Chronic Hypertension with complications and secondary hypertension (20 sources) Hypertensive chronic kidney disease with stage 1 through stage 4 chronic kidney disease, or unspecified chronic kidney disease; Translations: [Benign hypertensive heart disease without congestive heart failure] Onset: 03-02-2019 04-05-2023 Chronic Malaise and fatigue (1 source) Other fatigue; Translations: [OTHER FATIGUE] Onset: 11-27-2022 Episodic Mood disorders (20 sources) Mild depression; Translations: [Mild depression] Onset: 09-22-2021 Resolved: 01-28-2023 04-05-2023 Chronic Nutritional deficiencies (20 sources) Vitamin D deficiency; Translations: [Vitamin D deficiency, unspecified] Onset: 03-16-2016 06-02-2023 Chronic Osteoarthritis (20 sources) Osteoarthritis of knee; Translations: [Osteoarthritis of knee, unspecified] Onset: 10-17-2016 04-05-2023 Chronic Other acquired deformities (20 sources) Levoscoliosis; Translations: [Other forms of scoliosis, site unspecified] Onset: 08-28-2017 04-05-2023 Chronic Other aftercare (10 sources) Long-term current use of insulin; Translations: [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] Onset: 10-22-2019 Resolved: 01-28-2023 10-13-2024 Episodic Other and ill-defined heart disease (3 sources) Cardiomegaly; Translations: [CARDIOMEGALY] Onset: 03-01-2021 Chronic Other and ill-defined heart disease (20 sources) Bilateral enlargement of atria; Translations: [Cardiomegaly] Onset: 07-14-2018 04-05-2023 Chronic Other and ill-defined heart disease (20 sources) Left ventricular hypertrophy; Translations: [Cardiomegaly] Onset: 07-14-2018 04-05-2023 Chronic Other circulatory disease (1 source) Other specified symptoms and signs involving the circulatory and respiratory systems; Translations: [OTH SPEC SX SIGNS INVLV CIRC RS] Onset: 11-27-2022 Episodic Other connective tissue disease (1 source) Leg swelling symptom Onset: 07-13-2024 Episodic Other diseases of veins and lymphatics (20 sources) Lymphedema of lower extremity; Translations: [Lymphedema, not elsewhere classified] Onset: 04-19-2021 04-05-2023 Chronic Other diseases of veins and lymphatics (20 sources) Stasis dermatitis of lower limb due to chronic peripheral venous hypertension; Translations: [Chronic venous hypertension (idiopathic) with inflammation of unspecified lower extremity] Onset: 12-22-2020 04-05-2023 Chronic Other diseases of veins and lymphatics (1 source) Chronic venous hypertension (idiopathic) with inflammation of unspecified lower extremity; Translations: [Chronic venous hypertension (idiopathic) with inflammation of unspecified lower extremity] Onset: 01-28-2023 Chronic Other diseases of veins and lymphatics (1 source) Lymphedema, not elsewhere classified; Translations: [Lymphedema, not elsewhere classified] Onset: 07-13-2024 Chronic Other hereditary and degenerative nervous system conditions (1 source) Restless legs syndrome; Translations: [RESTLESS LEGS SYNDROME] Onset: 07-26-2022 Chronic Other hereditary and degenerative nervous system conditions (20 sources) Restless legs; Translations: [Restless legs syndrome] Onset: 01-18-2016 04-05-2023 Chronic Other lower respiratory disease (20 sources) Fibrosis of lung; Translations: [Pulmonary fibrosis, unspecified] Onset: 06-07-2022 04-05-2023 Chronic Other lower respiratory disease (4 sources) Pulmonary fibrosis, unspecified; Translations: [PULMONARY FIBROSIS UNSPECIFIED] Onset: 01-03-2022 Resolved: 04-12-2022 Chronic Other lower respiratory disease (4 sources) Cryptogenic organizing pneumonia; 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] Chronic Other lower respiratory disease (7 sources) Cryptogenic organizing pneumonia; 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] Onset: 02-01-2022 Resolved: 04-12-2022 Chronic Other lower respiratory disease (2 sources) Hypoxia; Translations: [Hypoxemia] 09-03-2024 Episodic Other nervous system disorders (20 sources) Polyneuropathy; Translations: [Polyneuropathy, unspecified] Onset: 01-15-2018 04-05-2023 Chronic Other nervous system disorders (1 source) Polyneuropathy, unspecified; Translations: [Polyneuropathy, unspecified] Onset: 01-28-2023 Chronic Other nutritional; endocrine; and metabolic disorders (20 sources) Morbid obesity; Translations: [Morbid (severe) obesity due to excess calories] Onset: 09-17-2019 04-05-2023 Chronic Other nutritional; endocrine; and metabolic disorders (1 source) Morbid (severe) obesity due to excess calories; Translations: [Morbid (severe) obesity due to excess calories] Onset: 01-28-2023 Chronic Other nutritional; endocrine; and metabolic disorders (20 sources) Obesity caused by energy imbalance; Translations: [Other obesity due to excess calories] Onset: 08-12-2024 08-12-2024 Chronic Other nutritional; endocrine; and metabolic disorders (4 sources) Severe obesity; Translations: [Class 3 severe obesity due to excess calories with serious comorbidity and body mass index (BMI) of 45.0 to 49.9 in adult ([facility])] 10-13-2024 Chronic Other nutritional; endocrine; and metabolic disorders (20 sources) Body mass index 40+ - severely obese; Translations: [Body mass index (BMI) 45.0-49.9, adult] Onset: 03-09-2022 03-09-2022 Chronic Other skin disorders (4 sources) Wound healed; Translations: [Personal history of diseases of the skin and subcutaneous tissue] 12-18-2023 Episodic Other upper respiratory disease (20 sources) Allergic rhinitis due to pollen; Translations: [Allergic rhinitis due to pollen] Onset: 01-18-2016 01-28-2023 Chronic Pulmonary heart disease (20 sources) Pulmonary hypertension; Translations: [Pulmonary hypertension, unspecified] Onset: 10-23-2018 04-05-2023 Chronic Residual codes; unclassified (20 sources) Obstructive sleep apnea syndrome; Translations: [Obstructive sleep apnea (adult) (pediatric)] Onset: 10-17-2016 04-05-2023 Chronic Residual codes; unclassified (3 sources) Obstructive sleep apnea (adult) (pediatric); Translations: [Obstructive sleep apnea (adult) (pediatric)] Onset: 01-03-2022 Resolved: 01-03-2022 Chronic Residual codes; unclassified (20 sources) Hypersomnia; Translations: [Hypersomnia, unspecified] Onset: 11-21-2022 04-05-2023 Chronic Residual codes; unclassified (20 sources) Periodic limb movement disorder; Translations: [Periodic limb movement disorder] Onset: 11-21-2022 04-05-2023 Chronic Residual codes; unclassified (3 sources) Periodic leg movements of sleep ; Translations: [Periodic limb movement disorder] Onset: 11-21-2022 08-12-2024 Chronic Residual codes; unclassified (1 source) Pain, unspecified; Translations: [Pain, unspecified] Onset: 04-20-2024 Episodic Residual codes; unclassified (1 source) Other specified postprocedural states; Translations: [Other specified postprocedural states] Onset: 12-26-2018 Respiratory failure; insufficiency; arrest (adult) (20 sources) Chronic respiratory failure with hypoxia; Translations: [Chronic respiratory failure] Onset: 11-08-2021 Resolved: 01-28-2023 Chronic Spondylosis; intervertebral disc disorders; other back problems (20 sources) Degeneration of lumbar intervertebral disc; Translations: [Other intervertebral disc degeneration, lumbar region] Onset: 08-28-2017 04-05-2023 Chronic Thyroid disorders (20 sources) Hypothyroidism, unspecified; Translations: [Hypothyroidism] Onset: 01-18-2016 Chronic Unclassified (1 source) CHRN KIDNEY DISEASE STG 3 UNSP; Translations: [CHRN KIDNEY DISEASE STG 3 UNSP] Onset: 11-27-2022 Unclassified (1 source) PERSONAL HISTORY OF COVID-19; Translations: [PERSONAL HISTORY OF COVID-19] Onset: 12-21-2021 Unclassified (1 source) Establish Care Onset: 07-09-2024 Unclassified (1 source) SWELLING IN BOTH LEGS 5 DAYS Onset: 07-13-2024 Past or Other Problems Problem Classification Problem Date Documented Date Episodic/Chronic Abdominal pain (4 sources) Right upper quadrant abdominal tenderness; Translations: [RUQ ABDOMINAL TENDERNESS] Onset: 04-05-2022 Episodic Acute and unspecified renal failure (20 sources) Acute renal failure syndrome; Translations: [Acute kidney failure, unspecified] Onset: 09-17-2019 Resolved: 01-28-2023 04-05-2023 Episodic Biliary tract disease (1 source) Calculus of gallbladder without cholecystitis without obstruction; Translations: [CALCU GB W/O CHOLECYST W/O OBST] Onset: 04-11-2022 Episodic Cardiac dysrhythmias (20 sources) Bradycardia; Translations: [Bradycardia, unspecified] Onset: 01-15-2018 04-05-2023 Episodic Complications of surgical procedures or medical care (20 sources) Postoperative hematoma formation; Translations: [Postprocedural hematoma of a circulatory system organ or structure following a cardiac catheterization] Onset: 01-28-2023 Resolved: 01-28-2023 04-05-2023 Episodic Mood disorders (20 sources) Mood disorders Onset: 10-14-2023 Resolved: 07-09-2024 10-14-2023 Mycoses (20 sources) Onychomycosis; Translations: [Tinea unguium] Onset: 04-19-2016 04-02-2023 Episodic Nonmalignant breast conditions (1 source) Lump in right breast; Translations: [Unspecified lump in the right breast, unspecified quadrant] 05-20-2024 Episodic Other aftercare (3 sources) 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; Translations: [DOG BATHER CURRENT USE OF INSULIN] Onset: 12-05-2022 Episodic Other aftercare (1 source) USP (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 anticoagulants; Translations: [oil heaterman (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 anticoagulants] Onset: 01-28-2023 Episodic Other aftercare (20 sources) Long-term current use of anticoagulant; Translations: [oil heaterman (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 anticoagulants] Onset: 07-14-2018 11-01-2023 Episodic Other circulatory disease (20 sources) History of cardiovascular surgery; Translations: [Presence of other cardiac implants and grafts] Onset: 03-01-2021 Resolved: 10-24-2022 10-24-2022 Chronic Other circulatory disease (2 sources) Personal history of other diseases of the circulatory system; Translations: [Personal history of other diseases of the circulatory system] Onset: 12-26-2018 Episodic Other connective tissue disease (20 sources) Pain in both feet; Translations: [Pain in right foot] Onset: 04-02-2023 04-02-2023 Episodic Other connective tissue disease (1 source) Other enthesopathies, not elsewhere classified; Translations: [Other enthesopathies, not elsewhere classified] Onset: 03-17-2024 Episodic Other connective tissue disease (1 source) Pain in upper limb Onset: 03-17-2024 Episodic Other connective tissue disease (1 source) Tendonitis of left shoulder; Translations: [Other enthesopathies, not elsewhere classified] 03-17-2024 Episodic Other diseases of veins and lymphatics (20 sources) Vascular insufficiency; Translations: [Venous insufficiency (chronic) (peripheral)] Onset: 04-02-2023 04-02-2023 Episodic Other infections; including parasitic (20 sources) Personal history of other infectious and parasitic diseases; Translations: [History of severe acute respiratory syndrome coronavirus 2 (SARS-CoV-2) disease] Onset: 09-22-2021 04-05-2023 Episodic Other lower respiratory disease (5 sources) Dyspnea, unspecified; Translations: [DYSPNEA UNSPECIFIED] Onset: 01-03-2022 Resolved: 01-03-2022 Episodic Other lower respiratory disease (1 source) Other nonspecific abnormal finding of lung field; Translations: [OTH NONSPECIFIC ABN FIND LNG FIELD] Onset: 01-17-2022 Episodic Other lower respiratory disease (1 source) Cough Onset: 01-09-2024 Episodic Other nutritional; endocrine; and metabolic disorders (20 sources) Hyperuricemia without signs of inflammatory arthritis and tophaceous disease; Translations: [Hyperuricemia without signs of inflammatory arthritis and tophaceous disease] Onset: 01-02-2022 04-05-2023 Episodic Other screening for suspected conditions (not mental disorders or infectious disease) (20 sources) Encounter for screening, unspecified; Translations: [Encounter for screening mammogram for malignant neoplasm of breast] Onset: 02-05-2018 Episodic Other upper respiratory infections (2 sources) Acute upper respiratory infection, unspecified; Translations: [Viral upper respiratory tract infection] Onset: 01-09-2024 01-09-2024 Episodic Pleurisy; pneumothorax; pulmonary collapse (20 sources) Atelectasis; Translations: [Atelectasis] Onset: 04-05-2023 04-05-2023 Episodic Residual codes; unclassified (1 source) Family history of malignant neoplasm of breast; Translations: [FAMILY HX MALIG NEOPLASM OF BREAST] Onset: 04-11-2022 Episodic Residual codes; unclassified (20 sources) Bilateral lower limb edema; Translations: [Localized edema] Onset: 02-05-2018 04-05-2023 Episodic Residual codes; unclassified (20 sources) History of radiofrequency ablation operation on left atrium for arrhythmia; Translations: [Other specified postprocedural states] Onset: 01-09-2019 04-05-2023 Episodic Residual codes; unclassified (1 source) Other general symptoms and signs; Translations: [Other general symptoms and signs] Onset: 01-09-2024 Episodic Residual codes; unclassified (1 source) Other specified postprocedural states; Translations: [Other specified postprocedural states] Onset: 01-28-2023 Episodic Residual codes; unclassified (1 source) Localized edema; Translations: [Localized edema] Onset: 03-01-2021 Episodic Residual codes; unclassified (20 sources) H/O: atrial fibrillation; Translations: [Other specified postprocedural states] Onset: 03-01-2021 11-01-2023 Episodic Residual codes; unclassified (6 sources) Family history of diabetes mellitus; Translations: [Family history of diabetes mellitus] Onset: 07-19-2016 01-28-2023 Episodic Residual codes; unclassified (20 sources) FH: Hypertension; Translations: [Family history of ischemic heart disease and other diseases of the circulatory system] Onset: 07-19-2016 Resolved: 01-23-2024 01-28-2023 Episodic Residual codes; unclassified (1 source) Viral syndrome; Translations: [Other general symptoms and signs] 01-09-2024 Episodic Skin and subcutaneous tissue infections (20 sources) Cellulitis; Translations: [Cellulitis, unspecified] Onset: 09-17-2019 04-05-2023 Episodic Superficial injury; contusion (20 sources) Hematoma of lower leg; Translations: [Contusion of unspecified lower leg, initial encounter] Onset: 01-09-2019 04-05-2023 Episodic Unclassified (3 sources) 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 Onset: 01-03-2022 Resolved: 04-12-2022 Unclassified (20 sources) Onset: 01-23-2024 01-23-2024 Results Test Name Value Interpretation Reference Range Facility Mammography reportOrdered By : Gareth Coelho on 02-11-2025 Diagnostic imaging study [facility] [address] [place] [address] Mammography Report Signed Patient: Joycelyn Hamm MR#: [id number] : 1940 Acct:[id number] Age/Sex: 84 / F Adm Date: 5 Loc: [place] Room: Type: [facility] Attending Dr: Jahaira Rodriguez DO Ordering Provider: Jahaira Rodriguez DO Date of Service: 02/11/25 Procedure(s): MM diagnostic mammo BI w/CAD Accession Number(s): ([id number]) MM/MM diagnostic mammo BI w/CAD: Follow up from abnormal imaging in May with [employer] Copies to: DO Carmen Tenorio FNP-C~ BILATERAL Screening Full Field digital mammogram with 3-D imaging. Full field digital CC and MLO imaging performed. CAD utilized. COMPARISON: 04/16/2024 HISTORY: Follow-up assessment of microcalcifications . Patient unable to stand limiting magnification imaging BREAST COMPOSITION: Scattered fibroglandular densities of the breast parenchyma identified BREAST CALCIFICATIONS: Scattered benign calcifications present. Loosely grouped calcifications identified in the superior posterior portion of the left breast VASCULAR CALCIFICATIONS: None ARCHITECTURAL DISTORTION: None BREAST NODULE: None AXILLARY LYMPH NODES: Normal POSTSURGICAL CHANGES: None MM/MM diagnostic mammo BI w/CAD IMPRESSION: Loosely grouped calcifications identified in the posterior superior portion of the left breast. These are probably benign. Six-month diagnostic leftmammogram recommended. RESULT CODE: 3 Probably Benign Finding Short Term Follow-Up DENSITY CODE: 2 (approximately 25-50% glandular) There are scattered areas of fibroglandular density. FOLLOW UP: 6M THE FALSE-NEGATIVE RATE OF MAMMOGRAPHY IS APPROXIMATELY 10%. IMAGING OF A PALPABLE ABNORMALITY MUST BE BASED ON CLINICAL GROUNDS. PATIENT WAS ENTERED INTO A REMINDER SYSTEM WITH A TARGET DUE DATE FOR THE NEXT MAMMOGRAM. Impression dictated by: Gareth Coelho M.D.02/11/2025 12:04 PM Dictation Location: [facility] Dictated By: Gareth Coelho DO 02/11/25 1202 Signed By: 02/11/25 1204 [facility] Glucose (Bld) [Mass/Vol]Orde red By: Rosaura Guzman on 02-09-2025 Glucose Blood, POC 283 mg/dL [facility] 02-09-2025 HbA1c (Bld) [Mass fraction] 8.7 % [facility] No Panel InformationOrdered By: Rosaura Guzman on 02-09-2025 [facility] Glucose (Bld) [Mass/Vol]Orde red By: Rosaura Guzman on 10-13-2024 Glucose Blood, POC 100 mg/dL [facility] Cell [facility] 10-13-2024 HbA1c (Bld) [Mass fraction] 8.5 % [facility] No Panel InformationOrdered By: Rosaura Guzman on 10-13-2024 [facility] Office Visiton 08-11-2024 Follow-up visit [id number] Joycelyn Hamm 1940 F Date Provider Department Center 08/11/2024 [facility] Family History Problem Relation Age of Onset No Known Problems Mother Heart attack Father Family Status - Relation Status Age at Mother Father Level of Service:28355 [place] OFFICE/OUTPATIENT NEW MODERATE MDM 45 MINUTES Normal [facility] Coding Summaryon 07-27-2024 Coding Summary HTMLBase 64 SslvoujvZAg8nUh+PGh lYWQ+IE3XBPKyY74ppK JynF9lF2YYCJpQIzxgB NYDPVnYHgGptbWrAH3z aXNjZXJu IC8+ES4gOIBqSmrukJM ot3K3qGF0G90uan6fSL nlaZP6LFPzYpDnhmmvk 1dlzCr2JWvxTxntFmOp FJTubM94BVK4eV37Rf8 7yYQxoMLtp5fpvAz0Br QaSLNkAMZ4tYxxBZsmi 7VbRFGnY37nbXNtk7Q1 IGNvbGxhcHNlOyBlbXB 9bH5nBRsyunwtq3kvru ijEdu8je62tWQby1N0e PZ9A0PukoB0PKBjmANj EjdfqOTQdA1fryjap4p onygdIzOiWMUeZQs9ZA w8FADyxLpcFcNhAQ66Y IO7QWTqjyLyF6RmYMPo bVhuVhE6o5B7Xg0AO9P TWjmcS2RPTGYLUVnneJ Q+ZU40zy59C1ReVvzqS ew1EQAtSAF9fWA7pN3o GEFiVXhhk7P2ySJ3U7J zylCjce2zr5orAZKnAM ukY40ozBSlh4T2JDWzq SV5QYLmlSjvQuQbpN56 Oyc+IVBhwRsmi7JpTqt gc6yxu5yqlIg1DenaBY NvjmHhvUkeAIX1m5GtR t2eEMAajKV7fQN9mC1e WoVyCoM5AKxgW427SmA qeKYzBdeiT52yS3OqkI A+TFLwXhs4HTKaiCgtP S0qG1ZeNFXemuavvYPq jNmuEP7dUGVgbzmrVOI tzC9mLERdQ5u4ZqNnBt M0PUyaX1BlQMXygpmzJ q93iB6gDsMtGnE9EGlc K7IpalE2IMZrhNZvRWp hTJF8C07bg8T7FMUfNA UwOWF6aMM4xC5umJrqw jogbGVmdDsgdmVydGlj GSzsYAdgW925XGCbmFw nPkNvZGluZyBEYXRlOi AgMDkvMjMvMjAyNDwvd GQ+ZHThKXJ7dQdbUFIz yAAvFYnfSy5atAvljJp hTH2fHITclgwvEEEeaI 8pHLSoaITvdGdlJG8zI DWmtbtlc825QkHdLFE1 ASMuqHGfS0QrrT1xVnM bVFEgHPKrQ9TebZRfCN paK737LUiaGyD0WAUhq pLaZ8JxJAAhlYpvOnK5 x0R3Ed4Sj5YumbpsM6Q lzUGfSzMpQraqJQk2B4 RkPjwvdHI+LP03KJHhX V67QEn6CDI8iHmzDBrb ERSaO3WevU5iMyOeMVJ kZGRkOyc+PHRhYmxlIH dpZHRoPScxMDAlJyBzd TcoKI0vQi6yODRhBXIp dGahyWBeObBgz1gtOHB oHJhxQS1ijXxbK6FdjN G0WZCel1n9Hv22N64nE 3JvdXA+KTTbdKE8lOU1 qJ4iMrDkNpR2GKikR35 4ZsQiqOEmAjzcd7rqc1 jtrIh7UvT8YFKsquMni YrbDUA1r3IdCd55A55m IHdpZHRoPSIxNSUiIHZ ldAwlau4oaH0nAl8+PG KbdZQ8lGY6zG9fXeUbT cZ8OKdtP345CnInvSXv Zkfml4ryl5clcOr9DsJ sKNTfxaWtdIdbMHM7x3 QeKr20K3BshZlpm6PeN ve8vx81vVPth4F0wAZ2 H8CnNYJutujfaBJqtLw iYP4jADAbtkhdAEGtoH 3xZWWfV1h1DqDnVeL9K GjeU8BtoeC6DQBegQBi WSWriFWIzO6zxbxzk3z usoecXtBgDYEvSQu9XV k7IMWmuRwfOiTeMDK9I wT0SUR1mPCqlA3wmBzh ijpqtF4dArx+OEF0nJO pbYEEIR4aVlntdLR+PH CiBOG1vNxqXBhkRUDty I2tBQAoX4x0DzZfEnJ3 TOgcK2EnbpZ8ILUyuZN yEBTvxBYEcV5aliwpr0 mlmtegIxQjLCZdIJq5H Uf2TANjdWhrAoJaION7 XdY1TGG1xBFqcE5bjCq eypsrrA2fIcu+QmlydG okQRW4VBm5Y2HdXko1R YJdoJcuUA4idJZgJJzx Qj7miUegnDgiFS6zJAF djaqhi517HqVre4dpFZ CorHNfTPmpXLP4H88dr 0F5GFJhZWBiDLA6lOB9 iP2wyJbyjjrjyXDtpXf gdmVydGljYWwtYWxpZ2 08JQSnkLirPbFaMAb3H 9RlUnz0RNFmmQeqHP9f qJAdZXmwKp3aqIdbcPd mLH5eFDLsoziib765Dk Uuy5cuUMQwhGRkRRwbU HV1T81mj8B2KIKwVGVw TGU8wAV9iQ2bpKwmtmx gbGVmdDsgdmVydGljYW vpTZdcP275PEGayEfoJ uIttDc6Q3BzDzj4YTKn aRdrCI1zfWIyMWddEh1 cxOgsjOpzSC9sUBIvei zib878HpXej8fbJJVrq DQzCEbpVGP2K09pm9Y4 DVOrXBXmQUF6fSD0zT7 hbGlnbjogbGVmdDsgdm CexLvyIWogYAbgL752K HRvcDsnPlBhdGllbnQg TKulUOc4I5AtZjmzjLZ +LX51UMYaVJ23cUPefJ Pxp9cuyKh4SvJdZPJiN JT6wBlaEOace1MmUPJy S56qdEHix1S3PGOdlEa cmSUnMoDwfQE6pV3zCN mynaany4rqlarcIaeuq 8oatm44dV84I62fQZpt ZHRoPSIzMCUiIHZhbGl tfa3biC1tAx0+PGNvbC F8gSU7jO2xDACpBiF8U KmaY937FuHpkPXrPmor f6scm9mkvYe6BpS0MQE omaIykGmfWKI5k7MvEk 29R00tVTyyULMnSUUzZ SWoGPOpoItxsf5yqW2n Ii8+OSKzwVR3sES4hQ2 rQaWfIpY8HHupM079Xt UwuJDeYpvrD95dH3Iag XA+LHQrTmv7KODdbGof IB4hsPCqSNpiUd2lDPK 8GeMlJtLkTIkbR3FaRP HhlctzbmxceHL8FJIyM QLmyZ54Wl8pfKqvQSRs oPDDcX5tqrjib9pblma jAzTaGKImGTg4HJe7MF EwjBgoVzPlSIQ5DtV2J UR9aEDqvO1nwUfwrqpy wZ4qR9JdGKBxdyagSz6 2fW4xTeFbZuW5YBenVf c+QT7NJiXOY8fcDLsLX K9tIZsvwGQ+PHRkIHN0 nMxbJEhhIZVxmG3sFQY eJ1b6XeQvFjB8XLgkC5 GcMYRviodeRx56wR0jP uEiSnJ3IIlqS8VzkeJ8 TXGevUDuQXrkUNP9K02 bm3F9HYLaDGMlIFK7fC F8sC7aoSxjiyrzyMNab DsgdmVydGljYWwtYWxp B859CHIspScgQdAsJoU 6OvR8Zbp0R2UxXiw0JC RebGavNB9brBPhVDzdR x3kkJxsgBgtUN5iIIBo eluwFCCtmJ4aHJXdpPJ udXtlEL8zUALjwbmil0 73VsQuOGO0GUGapUIgW 4RpuY0nPtNuDLDpYHPu W6JrhLNySUvbS053ALq wStW2EVXowgIqS6AnRN MklSdrGoR0u3Y5Sv85E SBZZWFyczwvdGQ+PHRk SFK3qDefZOqfCPUewF5 oQTOlV1g9QwCePwV6LH ehY7RhNRWgvzqzQo81k M6yZmHvXeT8NTbqO4Fn otH3GDMbzYCpJDxbQRZ 4U49zm4T8RBJsXXFdQM V7tVA0oT5fxVjeqtocl GVmdDsgdmVydGljYWwt CYgyD985PFJdbWexDmG FTUFMRTwvdGQ+PHRkIH V8hSdoURbkYQHzbV4pY KLmD6x8KjJhKsC2OZgt B3SrLYHvgqeiCs01hA3 eHzJgSyN8NNipG8Wair K8TGZddNSuNCsjLYN5R 93vs2T6KWEpZPQoJVO6 dZB6aJ8stLetggkmlZW mdDsgdmVydGljYWwtYW qqZ587OAAcfNccEc0eh 4VotxY4pB8mLP01SX39 M6NoCoehpDAglXQ+PHR hYmxlIHdpZHRoPScxMD MkZiNxdOcyQW7dDe5kK GVyLWNvbGxhcHNlOiBj x9gtLBPwMWwvRY9dnLp hG3QcfEQ8ZARmh7u5Fj 05X31bN6NvfPG+PGNvb NN8cVS8oJ9uJcGaIfU0 GCuqW675LsVqlXAyJvy uf9ajg8ycmJc0AnXzBW JbtbRedYbeQHW2b9IjR a05P15iYRbrWHJfWXUh IZDdENHkrXgtpm7zlS1 wIi8+JRBwxVM6uZI3cW 8mNsWnIrM0ZKenW073D gWtlZArVzylJ55mF4Dk dXA+WFYaQkd9XWQdxRl oBM0yiFOoIBaxTf7bCU M7TgXePaEkIZtjH1OfA USqpndtlqtrmXT8GSJa OANvfY56Xe2vuJcpEg4 kCCJtLWH5EBOwnCMgR3 JinV6zWkZnDVXdTKGkU 3XxfUZiHXsgH938EEta RuV6TLAeduIuS8VaLRE lbUdnHbX8f8K9Gh4QuF pkmNMuTT6zPmNnMIz1T 0NhGem2JZBicYyaWZ7o aCSkVJemVt1zlFlayGp qGQ3kOCCroldvk105Bv Wct9igVPVjzLWcIEtuT EA6T48yl3A0XXRiLCEf FRK5hAJ9hX1vwWznbpt gbGVmdDsgdmVydGljYW jnKBaoC372UPQzcTmhY fBRHqw3M4LdZzg6JTYz eGeaHE4isFYdHOwhPu4 hgHpabKbxBK9wPXTabb sqw028ClGkx0zpMJIir XSiZGsjPJL8N63lg4W2 WFKkBKOtUCU9qWM5gD2 hbGlnbjogbGVmdDsgdm DtgQpgXLofJGczI334G KPudGbrMg5YVdk5U8Lv Ojb6COPbpVblOQ2jdVY iTXccPz0kyHmrcZacUW 9eEVGxtuhcy521LqHrw 2ffAESgjNVyRKyvCVA5 E66er0L7XGKxCIKkEHZ 9fNX6aR1teJtkgcuxkE VmdDsgdmVydGljYWwtY NsiI993BQMyjVrgRoGq eWVyOjwvdGQ+VD10bm8 7X1JbYdpzBzh1YDIdPJ F1dCH5zU2yZXAkUTtnp 1N9dZW6D0MhlgRkob4u b2x (more content not included)... Normal [facility] Provider Orderson 07-27-2024 Provider Orders [id number] C#[id number] [facility] Outside Recordson 07-24-2024 Outside Records [id number] [facility]Auto Diff 1on 07-23-2024 Auto Cherry % 8 % Normal -12 [facility] Comment on above: Performed By: #### 1 [id number], [id number], [id number] #### [facility] (DEFAULT) [address] [place] [id number] Baso Abs# 0.0 x10 Normal 0.0-0.2 [facility] Comment on above: Performed By: #### 1 [id number], [id number] #### [facility] (DEFAULT) [address] [place] [id number] Basophils/100 WBC (Bld) 0.5 % Normal 0.2-2.0 [facility] Comment on above: Performed By: #### 1 [id number] #### [facility] (DEFAULT) [address] [place] [id number] Eos Abs# 0.4 x10 Normal 0.0-0.4 [facility] Comment on above: Performed By: #### 1 [id number], [id number] #### [facility] (DEFAULT) [address] [place] [id number] Eosinophils/100 WBC (Bld) 4.3 % High 0.9-4.0 [facility] Comment on above: Performed By: #### 1 [id number], [id number], 7406916 #### [facility] (DEFAULT) [address] [place] [address] 96152 Lymph Abs# 3.7 x10 High 1.3-2.9 [facility] Comment on above: Performed By: #### 1 [id number], [id number], 6279504 #### [facility] (DEFAULT) [address] [place] [address] 70199 Lymphocytes/100 WBC (Bld) 45 % Normal 14-48 [facility] Comment on above: Performed By: #### 1 [id number], [id number], [id number] #### [facility] (DEFAULT) [address] [place] [address] 30588 Cherry Abs# 0.7 x10 Normal 0.0-0.8 [facility] Comment on above: Performed By: #### 1 5359765, [id number], 9589240 #### [facility] (DEFAULT) [address] [place] [address] 85527 Neut Abs# 3.6 x10 Normal 1.5-9.2 [facility] Comment on above: Performed By: #### 1 [id number], [id number], 5759118 #### [facility] (DEFAULT) [address] [place] [address] 86842 Neutrophils/100 WBC (Bld) 42 % Low 44-88 [facility] Comment on above: Performed By: #### 1 [id number], [id number], 3665825 #### [facility] (DEFAULT) [address] [place] [address] 00682 BMP Standardon 07-23-2024 eGFR Non AA 44 mL/min/1.73m2 Invalid Interpretation Code [facility] Comment on above: Performed By: #### 1 [id number], [id number], 0938906 #### [facility] (DEFAULT) [address] [place] [address] 99698 eGFR AA 53 mL/min/1.73m2 Invalid Interpretation Code [facility] Comment on above: Performed By: #### 1 [id number], [id number], 3490682 #### [facility] (DEFAULT) [address] [place] [address] 52425 Anion gap [Moles/Vol] 11.2 mmol/L Normal 5.0-19.0 [facility] Comment on above: Performed By: #### 1 7277916, [id number], 8264048 #### [facility] (DEFAULT) [address] [place] [address] 47520 Calcium [Mass/Vol] 8.7 mg/dL Low 8.9-10.3 [facility] Comment on above: Performed By: #### 1 [id number], [id number], 4156596 #### [facility] (DEFAULT) [address] [place] [address] 06949 Chloride [Moles/Vol] 102 mmol/L Normal 101-111 [facility] Comment on above: Performed By: #### 1 [id number], [id number], 7575747 #### [facility] (DEFAULT) [address] [place] [address] 75952 CO2 [Moles/Vol] 24 mmol/L Normal 21-32 [facility] Comment on above: Performed By: #### 1 4909929, [id number], 2878798 #### [facility] (DEFAULT) [address] [place] [address] 76732 Creatinine [Mass/Vol] 1.17 mg/dL Normal 0.60-1.30 [facility] Comment on above: Performed By: #### 1 3569972, [id number], 7986508 #### [facility] (DEFAULT) [address] [place] [address] 29410 Glucose [Mass/Vol] 189.0 mg/dL High 74.0-118.0 [facility] Comment on above: Performed By: #### 1 5142983, [id number], 1314436 #### [facility] (DEFAULT) [address] [place] [address] 73739 Osmolality 277 mOsm/L Invalid Interpretation Code [facility] Comment on above: Performed By: #### 1 0281750, [id number], 6830703 #### [facility] (DEFAULT) [address] [place] [address] 39165 Potassium [Moles/Vol] 4.2 mmol/L Normal 3.6-5.1 [facility] Comment on above: Performed By: #### 1 1317736, [id number], 1275426 #### [facility] (DEFAULT) [address] [place] [address] 51406 Sodium [Moles/Vol] 133.0 mmol/L Low 136.0-144.0 [facility] Comment on above: Performed By: #### 1 3062556, [id number], 3399169 #### [facility] (DEFAULT) [address] [place] [address] 22323 Urea nitrogen [Mass/Vol] 28 mg/dL High 8-26 [facility] Comment on above: Performed By: #### 1 9785068, [id number], 1893232 #### [facility] (DEFAULT) [address] [place] [address] 48567 Urea nitrogen/Creatinine [Mass ratio] 23.9 mg/mg High 4.6-16.2 [facility] Comment on above: Performed By: #### 1 2543774, [id number], 3071391 #### [facility] (DEFAULT) [address] [place] [address] 47252 CBC w/ Auto Diffon 4 Erythrocyte distribution width (RBC) [Ratio] 17.1 % High 11.5-15.0 [facility] Comment on above: Performed By: #### 1 7698741, [id number], 0480819 #### [facility] (DEFAULT) [address] [place] [address] 28237 Hematocrit (Bld) [Volume fraction] 42.5 % High 33.7-40.4 [facility] Comment on above: Performed By: #### 1 3150152, [id number], 7143222 #### [facility] (DEFAULT) [address] [place] [address] 06938 Hemoglobin (Bld) [Mass/Vol] 13.9 g/dL Normal 11.3-15.9 [facility] Comment on above: Performed By: #### 1 6195779, [id number], 9634155 #### [facility] (DEFAULT) [address] [place] [address] 19997 Man Diff? Auto Invalid Interpretation Code [facility] Comment on above: Performed By: #### 1 [id number], [id number], 4474346 #### [facility] (DEFAULT) [address] [place] [address] 33443 MCH (RBC) [Entitic mass] 30 pg Normal 24-34 [facility] Comment on above: Performed By: #### 1 5387044, [id number], 3343901 #### [facility] (DEFAULT) [address] [place] [address] 81131 MCHC (RBC) [Mass/Vol] 33 g/dL Normal 26-37 [facility] Comment on above: Performed By: #### 1 6689262, [id number], 4137480 #### [facility] (DEFAULT) [address] [place] [address] 44777 MCV (RBC) [Entitic vol] 90 fL Normal 81-100 [facility] Comment on above: Performed By: #### 1 8150258, [id number], 3715614 #### [facility] (DEFAULT) [address] [place] [address] 81927 Platelet 217 x10 Normal 138-427 [facility] Comment on above: Performed By: #### 1 3879712, [id number], 0364141 #### [facility] (DEFAULT) [address] [place] [address] 92110 Platelet mean volume (Bld) [Entitic vol] 9.2 fL Normal 6.3-10.2 [facility] Comment on above: Performed By: #### 1 7636378, [id number], 6529403 #### [facility] (DEFAULT) [address] [place] [address] 84549 RBC 4.71 x10 Normal 3.70-5.30 [facility] Comment on above: Performed By: #### 1 1137358, [id number], 8632696 #### [facility] (DEFAULT) [address] [place] [address] 57453 WBC 8.4 x10 Normal 3.5-10.5 [facility] Comment on above: Performed By: #### 1 3758668, [id number], 0001834 #### [facility] (DEFAULT) [address] [place] [address] 97734 Consent Formson 07-23-2024 Consent Forms [id number] Normal [facility] Inpatient Patient Summaryon 07-23-2024 Inpatient Patient Summary [address] [address] Patient Discharge Instructions Name: JOYCELYN HAMM : 1940 Patient Address: [address] [place] [address] Primary Care Provider: Name: Chad Hwang MD After you are discharged if you find you have any questions, please, call [phone] ext [phone] to speak to a nurse. The Pharmacy at [facility] is open Saturday through Saturday from 9A to 6P and Saturday and Saturday from 9A to 5P Discharge Diagnosis: Dehydration; Diabetes Prescription Information: If you have been given a prescription for narcotics, seek immediate medical attention if you have any difficulty breathing or any sudden status changes such as confusion and sleepiness. If you or anyone you know is experiencing suicidal thoughts, mental health, alcohol and/or drug addiction problems; contact the [facility] 27/05 Crisis Hotline -Text 1ZNHW af 090481. If you received any narcotics, sedation, or any other medication that causes drowsiness for the next 24 hours, unless otherwise directed: ? Do not drive a car. ? Do not operate machinery such as power tools, lawn mowers, drills, sewing machines, or stoves ? Avoid alcoholic beverages and drugs for allergies, nerves, or sleep ? Do not make important personal or business decisions or sign any legal documents [facility] would like to thank you for allowing us to assist you with your healthcare needs. The following includes patient education materials and information regarding your injury/illness. JOYCELYN HAMM has been given the following list of follow-up instructions, prescriptions, and patient education materials: Follow-up Instructions With: Address: When: Nick Styles [address] [id number] [facility] (1) 07/30/2024 3:20 PM Medications During the course of your visit, your medication list was updated with the most current information. The details of those changes are reflected below: New Medications Other Medications cefuroxime (cefuroxime 250 mg oral tablet) 2 tab(s) Oral (given by mouth) 2 times per day for 2 Days. MAGRU. Medications That Were Updated - Follow Below Instructions Other Medications Updated: gabapentin (gabapentin 300 mg oral capsule) 2 cap(s) Oral (given by mouth) 2 times per day. Medications to Continue That Have Not Changed Other Medications allopurinol (allopurinol 300 mg oral tablet) 1 tab(s) Oral (given by mouth) every day. apixaban (Eliquis 5 mg oral tablet) 1 tab(s) Oral (given by mouth) 2 times per day. atorvastatin (atorvastatin 40 mg oral tablet) 1 tab(s) Oral (given by mouth) every day. calcium carbonate (calcium (as carbonate) 600 mg oral tablet) 1 tab(s) Oral (given by mouth) every day. calcium-vitamin D (calcium (as carbonate)-vitamin D 600 mg-20 mcg (800 intl units) oral tablet, chewable) 1 tab(s) Chewed 2 times per day. cetirizine (cetirizine 10 mg oral tablet) 1 tab(s) Oral (given by mouth) every day. dilTIAZem (Tiadylt ER 120 mg/24 hours oral capsule, extended release) 1 cap(s) Oral (given by mouth) every day. TAKE 1 CAPSULE (120 MG TOAL) BY MOUTH IN THE MORNING. Durable Medical Equipment for Prescription (ATORVASTATIN CALCIUM 40 MG TABS) See instructions. insulin detemir (Levemir FlexPen 100 units/mL subcutaneous solution) INJECT 100 UNITS SUBCUTANEOUSLY AT BEDTIME.. insulin lispro (HumaLOG KwikPen 100 units/mL injectable solution) 75 mL, 0 Refill(s), INJECT 20 UNITS AT BREKFAST 30 UNITS AT LUNCH AND 30 UNITS AT DINNER SUB (TOTAL DAILY DOSE 80 UNITS). levothyroxine (levothyroxine 137 mcg (0.137 mg) oral tablet) 1 tab(s) Oral (given by mouth) every day. linagliptin (Tradjenta 5 mg oral tablet) 1 tab(s) Oral (given by mouth) every day. magnesium gluconate (magnesium gluconate 500 mg oral tablet) 1 tab(s) Oral (given by mouth) every day. mirabegron (Myrbetriq 25 mg oral tablet, extended release) 1 tab(s) Oral (given by mouth) every day. rOPINIRole (rOPINIRole 0.5 mg oral tablet) 1 tab(s) Oral (given by mouth) 3 times per day. spironolactone (spironolactone 25 mg oral tablet) 1 tab(s) Oral (given by mouth) 2 times per day. No Longer Take the Following Medications bumetanide (bumetanide 2 mg oral tablet) 1 tab(s) Oral (given by mouth) every day. It is important to always keep an active list of medications available so that you can share with other providers and manage your medications appropriately. As an additional courtesy, we are also providing you with your final active medications list that you can keep with you. allopurinol (allopurinol 300 mg oral tablet) 1 tab(s) Oral (given by mouth) every day. apixaban (Eliquis 5 mg oral tablet) 1 tab(s) Oral (given by mouth) 2 times per day. atorvastatin (atorvastatin 40 mg oral tablet) 1 tab(s) Oral (given by mouth) every day. calcium carbonate (calcium (as carbonate) 600 mg oral tablet (more content not included)... Normal [facility] POCT Glucose Levelon 024 Glucose [Mass/Vol] 163 mg/dL High 74-118 [facility] Comment on above: Result Comment: OPR_ ID=IN_LIST,TGC FLAG = False,Meter:[id number] Greens Planter:346Verna Matos Performed By: #### 4 [id number] ####[facility] (DEFAULT)[address] [place] [address] 69192 Glucose [Mass/Vol] 216 mg/dL High 74118 [facility] Comment on above: Result Comment: OPR_ ID=IN_LIST,TGC FLAG = False,Meter:[id number] Greens Planter:Kd Matos Performed By: #### 4 [id number] ####[facility] (DEFAULT)[address] [place] [address] Pharmacy Noteon 07-23-2024 Pharmacy Note I have personally reviewed the patient's medication list upon discharge including, prescription medications, OTC products, vitamins and supplements. Below are the following medications the patient is discharged on. New Medications Other Medications cefuroxime (cefuroxime 250 mg oral tablet) 2 tab(s) Oral (given by mouth) 2 times per day for 2 Days. MAGRU. Medications That Were Updated - Follow Below Instructions Other Medications Updated: gabapentin (gabapentin 300 mg oral capsule) 2 cap(s) Oral (given by mouth) 2 times per day. Medications to Continue That Have Not Changed Other Medications allopurinol (allopurinol 300 mg oral tablet) 1 tab(s) Oral (given by mouth) every day. apixaban (Eliquis 5 mg oral tablet) 1 tab(s) Oral (given by mouth) 2 times per day. atorvastatin (atorvastatin 40 mg oral tablet) 1 tab(s) Oral (given by mouth) every day. calcium carbonate (calcium (as carbonate) 600 mg oral tablet) 1 tab(s) Oral (given by mouth) every day. calcium-vitamin D (calcium (as carbonate)-vitamin D 600 mg-20 mcg (800 intl units) oral tablet, chewable) 1 tab(s) Chewed 2 times per day. cetirizine (cetirizine 10 mg oral tablet) 1 tab(s) Oral (given by mouth) every day. dilTIAZem (Tiadylt ER 120 mg/24 hours oral capsule, extended release) 1 cap(s) Oral (given by mouth) every day. TAKE 1 CAPSULE (120 MG TOAL) BY MOUTH IN THE MORNING. Durable Medical Equipment for Prescription (ATORVASTATIN CALCIUM 40 MG TABS) See instructions. insulin detemir (Levemir FlexPen 100 units/mL subcutaneous solution) INJECT 100 UNITS SUBCUTANEOUSLY AT BEDTIME.. insulin lispro (HumaLOG KwikPen 100 units/mL injectable solution) 75 mL, 0 Refill(s), INJECT 20 UNITS AT BREKFAST 30 UNITS AT LUNCH AND 30 UNITS AT DINNER SUB (TOTAL DAILY DOSE 80 UNITS). levothyroxine (levothyroxine 137 mcg (0.137 mg) oral tablet) 1 tab(s) Oral (given by mouth) every day. linagliptin (Tradjenta 5 mg oral tablet) 1 tab(s) Oral (given by mouth) every day. magnesium gluconate (magnesium gluconate 500 mg oral tablet) 1 tab(s) Oral (given by mouth) every day. mirabegron (Myrbetriq 25 mg oral tablet, extended release) 1 tab(s) Oral (given by mouth) every day. rOPINIRole (rOPINIRole 0.5 mg oral tablet) 1 tab(s) Oral (given by mouth) 3 times per day. spironolactone (spironolactone 25 mg oral tablet) 1 tab(s) Oral (given by mouth) 2 times per day. No Longer Take the Following Medications bumetanide (bumetanide 2 mg oral tablet) 1 tab(s) Oral (given by mouth) every day. Discharge Med Rec Notes: Reviewed admission medication list against external fill history and available [employer] medication history to ensure accuracy. Reviewed regimen upon discharge which is appropriate and correct. [Electronically Signed on: 07/23/2024 13:29 EDT] __ Lucien Cooney PharmD [Verified on: 07/23/2024 13:29 EDT] __ Lucien Cooney PharmD [facility] Progress Note - Nurseon 07-05 Progress Note - Nurse Called reported into [facility] ([phone]) and spoke with Amirah. Patient will be transported to the facility via taxi cab. [Electronically Signed on: 07/23/2024 16:32 EDT] __ Carol Ortiz RN [Verified on: 07/23/2024 16:32 EDT] __ Carol Ortiz RN [facility] Progress Note - Nurse [facility] [Electronically Signed on: 07/23/2024 16:40 EDT] __ Carol Ortiz RN [Verified on: 07/23/2024 16:40 EDT] __ Carol Ortiz RN [facility] .Auto Diff 1on 07-22-2024 Auto Cherry % 8 % Normal 1-12 [facility] Comment on above: Performed By: #### 1 [id number], [id number], 8750755 #### [facility] (DEFAULT) [address] [place] [address] 11227 Baso Abs# 0.0 x10 Normal 0.0-0.2 [facility] Comment on above: Performed By: #### 1 [id number], [id number], 3091498 #### [facility] (DEFAULT) [address] [place] [address] 79346 Basophils/100 WBC (Bld) 0.6 % Normal 0.2-2.0 [facility] Comment on above: Performed By: #### 1 [id number], [id number], 4592147 #### [facility] (DEFAULT) [address] [place] [address] 81368 Eos Abs# 0.3 x10 Normal 0.0-0.4 [facility] Comment on above: Performed By: #### 1 5203799, [id number], 4024863 #### [facility] (DEFAULT) [address] [place] [address] 44111 Eosinophils/100 WBC (Bld) 3.5 % Normal 0.9-4.0 [facility] Comment on above: Performed By: #### 1 3204021, [id number], 6425290 #### [facility] (DEFAULT) [address] [place] [address] 11111 Lymph Abs# 3.3 x10 High 1.3-2.9 [facility] Comment on above: Performed By: #### 1 3547132, [id number], 2784685 #### [facility] (DEFAULT) [address] [place] [address] 27237 Lymphocytes/100 WBC (Bld) 41 % Normal 14-48 [facility] Comment on above: Performed By: #### 1 3097437, [id number], 9843556 #### [facility] (DEFAULT) [address] [place] [address] 01867 Cherry Abs# 0.7 x10 Normal 0.0-0.8 [facility] Comment on above: Performed By: #### 1 5863727, [id number], 1319014 #### [facility] (DEFAULT) [address] [place] [address] 23091 Neut Abs# 3.7 x10 Normal 1.5-9.2 [facility] Comment on above: Performed By: #### 1 8520716, [id number], 3490060 #### [facility] (DEFAULT) [address] [place] [address] 89529 Neutrophils/100 WBC (Bld) 46 % Normal 44-88 [facility] Comment on above: Performed By: #### 1 6668298, [id number], 4413233 #### [facility] (DEFAULT) [address] [place] [address] 59807 BMP Standardon 07-22-2024 eGFR Non AA 48 mL/min/1.73m2 Invalid Interpretation Code [facility] Comment on above: Performed By: #### 1 8828840, [id number], 3415107 #### [facility] (DEFAULT) [address] [place] [address] 36996 eGFR AA 58 mL/min/1.73m2 Invalid Interpretation Code [facility] Comment on above: Performed By: #### 1 1268512, [id number], 2857621 #### [facility] (DEFAULT) [address] [place] [address] 85846 Anion gap [Moles/Vol] 11.0 mmol/L Normal 5.0-19.0 [facility] Comment on above: Performed By: #### 1 7112921, [id number], 4068740 #### [facility] (DEFAULT) [address] [place] [address] 36320 Calcium [Mass/Vol] 8.6 mg/dL Low 8.9-10.3 [facility] Comment on above: Performed By: #### 1 0483486, [id number], 8315158 #### [facility] (DEFAULT) [address] [place] [address] 87443 Chloride [Moles/Vol] 103 mmol/L Normal 101-111 [facility] Comment on above: Performed By: #### 1 [id number], [id number], 5958568 #### [facility] (DEFAULT) [address] [place] [address] 15757 CO2 [Moles/Vol] 25 mmol/L Normal 21-32 [facility] Comment on above: Performed By: #### 1 1575325, [id number], 6125233 #### [facility] (DEFAULT) [address] [place] [address] 30209 Creatinine [Mass/Vol] 1.08 mg/dL Normal 0.60-1.30 [facility] Comment on above: Performed By: #### 1 2212845, [id number], 1797127 #### [facility] (DEFAULT) [address] [place] [address] 66679 Glucose [Mass/Vol] 162.0 mg/dL High 74.0-118.0 [facility] Comment on above: Performed By: #### 1 1035677, [id number], 1200717 #### [facility] (DEFAULT) [address] [place] [address] 22002 Osmolality 278 mOsm/L Invalid Interpretation Code [facility] Comment on above: Performed By: #### 1 1107317, [id number], 6322351 #### [facility] (DEFAULT) [address] [place] [address] 33501 Potassium [Moles/Vol] 4.0 mmol/L Normal 3.6-5.1 [facility] Comment on above: Performed By: #### 1 5517456, [id number], 5896923 #### [facility] (DEFAULT) [address] [place] [address] 84873 Sodium [Moles/Vol] 135.0 mmol/L Low 136.0-144.0 [facility] Comment on above: Performed By: #### 1 4052724, [id number], 9640750 #### [facility] (DEFAULT) [address] [place] [address] Urea nitrogen [Mass/Vol] 25 mg/dL Normal 8-26 [facility] Comment on above: Performed By: #### 1 9121831, [id number], 6731865 #### [facility] (DEFAULT) [address] [place] [address] Urea nitrogen/Creatinine [Mass ratio] 23.1 mg/mg High 4.6-16.2 [facility] Comment on above: Performed By: #### 1 9728742, [id number], 8218318 #### [facility] (DEFAULT) [address] [place] [address] 92657 CBC w/ Auto Diffon 4 Erythrocyte distribution width (RBC) [Ratio] 16.8 % High 11.5-15.0 [facility] Comment on above: Performed By: #### 1 9405314, [id number], 7023636 #### [facility] (DEFAULT) [address] [place] [address] 36272 Hematocrit (Bld) [Volume fraction] 40.7 % High 33.7-40.4 [facility] Comment on above: Performed By: #### 1 0720750, [id number], 1701367 #### [facility] (DEFAULT) [address] [place] [address] 91993 Hemoglobin (Bld) [Mass/Vol] 13.2 g/dL Normal 11.3-15.9 [facility] Comment on above: Performed By: #### 1 4898439, [id number], 0331345 #### [facility] (DEFAULT) [address] [place] [address] Man Diff? Auto Invalid Interpretation Code [facility] Comment on above: Performed By: #### 1 0614162, [id number], 2475069 #### [facility] (DEFAULT) [address] [place] [address] MCH (RBC) [Entitic mass] 29 pg Normal 24-34 [facility] Comment on above: Performed By: #### 1 6724176, [id number], 5576133 #### [facility] (DEFAULT) [address] [place] [address] MCHC (RBC) [Mass/Vol] 32 g/dL Normal 26-37 [facility] Comment on above: Performed By: #### 1 3280274, [id number], 5729690 #### [facility] (DEFAULT) [address] [place] [address] MCV (RBC) [Entitic vol] 90 fL Normal 81-100 [facility] Comment on above: Performed By: #### 1 2799479, [id number], 4844823 #### [facility] (DEFAULT) [address] [place] [address] Platelet 197 x10 Normal 138-427 [facility] Comment on above: Performed By: #### 1 7867375, [id number], 2781936 #### [facility] (DEFAULT) [address] [place] [address] Platelet mean volume (Bld) [Entitic vol] 9.2 fL Normal 6.3-10.2 [facility] Comment on above: Performed By: #### 1 3608072, [id number], 2827701 #### [facility] (DEFAULT) [address] [place] [address] RBC 4.51 x10 Normal 3.70-5.30 [facility] Comment on above: Performed By: #### 1 1215896, [id number], 3827405 #### [facility] (DEFAULT) [address] [place] [address] 19021 WBC 8.0 x10 Normal 3.5-10.5 [facility] Comment on above: Performed By: #### 1 3857628, [id number], 3238296 #### [facility] (DEFAULT) [address] [place] [address] 43739 Nutrition Noteon 07-22-2024 Nutrition Note 07/22 144.3kg, fairly stable. Pt eating well, avg 100% of meals and [place]. Wound care in place. Per medical rounds, SS working on safe disposition. Will continue to monitor. Normal [facility] POCT Glucose Levelon 024 Glucose [Mass/Vol] 257 mg/dL High [address] [place] [address] Comment on above: Result Comment: OPR_ ID=IN_LIST,TGC FLAG = False,Meter:[id number] Greens Planter:[id number] Luisito Moyer Performed By: #### 4 [id number] ####[facility] (DEFAULT)[address] [place] [address] 42847 Glucose [Mass/Vol] 166 mg/dL High 01 [place] [address] Comment on above: Result Comment: OPR_ ID=IN_LIST,TGC FLAG = False,Meter:[id number] Greens Planter:3560 Diana Medina Performed By: #### 4 [id number] ####[facility] (DEFAULT)[address] [place] [address] 78746 Glucose [Mass/Vol] 172 mg/dL High [address] [place] [address] Comment on above: Result Comment: OPR_ ID=IN_LIST,TGC FLAG = False,Meter:[id number] Greens Planter:3560 Diana Medina Performed By: #### 1 [id number], [id number], [id number] #### [facility] (DEFAULT) [address] [place] [address] 55739 Glucose [Mass/Vol] 173 mg/dL High [address] [place] [address] Comment on above: Result Comment: OPR_ ID=IN_LIST,TGC FLAG = False,Meter:[phone] Greens Planter:3460 Javed Matos Performed By: #### 4 [id number] ####[facility] (DEFAULT)[address] [place] [address] .Auto Diff on 07-21-2024 Auto Cherry % 9 % Normal 1-12 [facility] Comment on above: Performed By: #### 1 [id number], [id number], [id number] ####[facility] (DEFAULT)[address] [place] [address] Baso Abs# 0.0 x10 Normal 0.0-0.2 [facility] Comment on above: Performed By: #### 1 [id number], 3903781, 62275810 ####[facility] (DEFAULT)[address] [place] [address] Basophils/100 WBC (Bld) 0.6 % Normal 0.2-2.0 [facility] Comment on above: Performed By: #### 1 [id number], 7589786, 67294605 ####[facility] (DEFAULT)[address] [place] [address] Eos Abs# 0.3 x10 Normal 0.0-0.4 [facility] Comment on above: Performed By: #### 1 [id number], 1696075, [id number] ####[facility] (DEFAULT)[address] [place] [address] Eosinophils/100 WBC (Bld) 3.7 % Normal 0.9-4.0 [facility] Comment on above: Performed By: #### 1 [id number], 1531624, 69242183 ####[facility] (DEFAULT)[address] [place] [address] Lymph Abs# 2.9 x10 Normal 1.3-2.9 [facility] Comment on above: Performed By: #### 1 [id number], 8459104, 47121947 ####[facility] (DEFAULT)[address] [place] [address] Lymphocytes/100 WBC (Bld) 38 % Normal 14-48 [facility] Comment on above: Performed By: #### 1 [id number], 8969553, 53425192 ####[facility] (DEFAULT)[address] [place], [place] [address] Cherry Abs# 0.7 x10 Normal 0.0-0.8 [facility] Comment on above: Performed By: #### 1 [id number], 9452274, 08573653 ####[facility] (DEFAULT)[address] [place] [address] Neut Abs# 3.8 x10 Normal 1.5-9.2 [facility] Comment on above: Performed By: #### 1 [id number], 5448773, 27043253 ####[facility] (DEFAULT)[address] [place] [address] Neutrophils/100 WBC (Bld) 49 % Normal 44-88 [facility] Comment on above: Performed By: #### 1 [id number], 1511732, 08192686 ####[facility] (DEFAULT)[address] [place] [address] BMP Standardon 07-21-2024 eGFR Non AA 50 mL/min/1.73m2 Invalid Interpretation Code [facility] Comment on above: Performed By: #### 1 [id number], 8746510, 93472548 ####[facility] (DEFAULT)[address] [place] [address] eGFR AA >60 Invalid Interpretation Code [facility] Comment on above: Performed By: #### 1 [id number], 1665157, 27135222 ####[facility] (DEFAULT)[address] [place] [address] Anion gap [Moles/Vol] 13.1 mmol/L Normal 5.0-19.0 [facility] Comment on above: Performed By: #### 1 [id number], 7599825, 27012907 ####[facility] (DEFAULT)[address] [place] [address] Calcium [Mass/Vol] 8.4 mg/dL Low 8.9-10.3 [facility] Comment on above: Performed By: #### 1 [id number], 5034219, 92509161 ####[facility] (DEFAULT)[address] [place] [address] Chloride [Moles/Vol] 102 mmol/L Normal 101-111 [facility] Comment on above: Performed By: #### 1 [id number], 7590941, 10036926 ####[facility] (DEFAULT)[address] [place] [address] 89367 CO2 [Moles/Vol] 25 mmol/L Normal 21-32 [facility] Comment on above: Performed By: #### 1 [id number], 4539374, 85421717 ####[facility] (DEFAULT)[address] [place] [address] 01409 Creatinine [Mass/Vol] 1.04 mg/dL Normal 0.60-1.30 [facility] Comment on above: Performed By: #### 1 [id number], 0447732, 22315641 ####[facility] (DEFAULT)[address] [place] [address] 03694 Glucose [Mass/Vol] 191.0 mg/dL High 74.0-118.0 [facility] Comment on above: Performed By: #### 1 [id number], 9405757, 00153339 ####[facility] (DEFAULT)[address] [place] [address] 49055 Osmolality 281 mOsm/L Invalid Interpretation Code [facility] Comment on above: Performed By: #### 1 [id number], 4878824, 80157457 ####[facility] (DEFAULT)[address] [place] [address] 33001 Potassium [Moles/Vol] 4.1 mmol/L Normal 3.6-5.1 [facility] Comment on above: Performed By: #### 1 [id number], 4098045, 29587236 ####[facility] (DEFAULT)[address] [place] [address] 42930 Sodium [Moles/Vol] 136.0 mmol/L Normal 136.0-144.0 [facility] Comment on above: Performed By: #### 1 [id number], 0039950, 05674857 ####[facility] (DEFAULT)[address] [place] [address] 04875 Urea nitrogen [Mass/Vol] 24 mg/dL Normal 8-26 [facility] Comment on above: Performed By: #### 1 [id number], 1709509, 75586269 ####[facility] (DEFAULT)[address] [place] [address] Urea nitrogen/Creatinine [Mass ratio] 23.0 mg/mg High 4.6-16.2 [facility] Comment on above: Performed By: #### 1 [id number], 8641113, 52348457 ####[facility] (DEFAULT)[address] [place] [address] C Urineon 07-21-2024 C Urine Urine Culture ordered as a result of parameters set on specific urine dip and urine microsopic results. 15,000 cfu/ml Proteus mirabilis and 20,000 cfu/ml Corynebacterium species (Diptheroids) No LORRAINE performed on this organism ORGANISM Promir ------ SUSCEPTIBILITY ----- ORGANISM ID: 1 ANTIBIOTIC INTERPRETATION LORRAINE STATUS ORGANISM PromirPromir Amp S <=8 Verified Amp/Sul S <=8/4 Verified Azt S <=4 Verified Cefaz S <=2 Verified Cefep S <=2 Verified Cefo <=2 Verified Ceftaz S <=1 Verified Ceftri S <=1 Verified Cefur S <=4 Verified Cipro S <=0.25 Verified Ertap S <=0.5 Verified Gent S <=2 Verified Levo S <=0.5 Verified Nitro R >64 Verified Pip/Virgilio S <=8 Verified Tetra R >8 Verified Tobra S <=2 Verified Tri/Sulf S <=2/38 Verified Normal [facility] Comment on above: Performed By: #### 1 [id number], [id number], 2228951 #### [facility] (DEFAULT) [address] [place] [address] 91742 CBC w/ Auto Diffon Erythrocyte distribution width (RBC) [Ratio] 17.0 % High 11.5-15.0 [facility] Comment on above: Performed By: #### 1 [id number], 2718728, 94361218 ####[facility] (DEFAULT)[address] [place] [address] 70897 Hematocrit (Bld) [Volume fraction] 37.1 % Normal 33.7-40.4 [facility] Comment on above: Performed By: #### 1 [id number], 5244674, 95968920 ####[facility] (DEFAULT)[address] [place] [address] 46556 Hemoglobin (Bld) [Mass/Vol] 12.2 g/dL Normal 11.3-15.9 [facility] Comment on above: Performed By: #### 1 [id number], 1875965, 64826590 ####[facility] (DEFAULT)[address] [place] [address] Man Diff? Auto Invalid Interpretation Code [facility] Comment on above: Performed By: #### 1 [id number], 0571856, 79279790 ####[facility] (DEFAULT)[address] [place] [address] MCH (RBC) [Entitic mass] 29 pg Normal 24-34 [facility] Comment on above: Performed By: #### 1 [id number], 0196493, 30534909 ####[facility] (DEFAULT)[address] [place] [address] 84180 MCHC (RBC) [Mass/Vol] 33 g/dL Normal 26-37 [facility] Comment on above: Performed By: #### 1 [id number], 1660963, 86656434 ####[facility] (DEFAULT)[address] [place] [address] MCV (RBC) [Entitic vol] 89 fL Normal 81-100 [facility] Comment on above: Performed By: #### 1 125552290, 0186829, 52173497 ####[facility] (DEFAULT)[address] [place] [address] 23947 Platelet 173 x10 Normal 138-427 [facility] Comment on above: Performed By: #### 1 [id number], 0284444, 13255190 ####[facility] (DEFAULT)[address] [place] [address] 59819 Platelet mean volume (Bld) [Entitic vol] 8.6 fL Normal 6.3-10.2 [facility] Comment on above: Performed By: #### 1 [id number], 4059363, 08173028 ####[facility] (DEFAULT)[address] [place] [address] 00020 RBC 4.17 x10 Normal 3.70-5.30 [facility] Comment on above: Performed By: #### 1 270101059, 0876133, 98491661 ####[facility] (DEFAULT)[address] [place] [address] 68028 WBC 7.7 x10 Normal 3.5-10.5 [facility] Comment on above: Performed By: #### 1 [id number], 5852029, 92285370 ####[facility] (DEFAULT)[address] [place] [address] 60252 POCT Glucose Levelon 024 Glucose [Mass/Vol] 259 mg/dL [address] Comment on above: Result Comment: OPR_ ID=IN_LIST,TGC FLAG = False,Meter:[id number] Greens Planter:3227 Frank Youssef Performed By: #### 1 [id number], [id number], 0958044 #### [facility] (DEFAULT) [address] [place] [address] 34267 Glucose [Mass/Vol] 196 mg/dL High [address] [place] [address] Comment on above: Result Comment: OPR_ ID=IN_LIST,TGC FLAG = False,Meter:[id number] Greens Planter:3460 Javed Carlo Performed By: #### 1 1147525, [id number], 1229703 #### [facility] (DEFAULT) [address] [place] [address] 42111 Glucose [Mass/Vol] 158 mg/dL High [address] [place] [address] Comment on above: Result Comment: OPR_ ID=IN_LIST,TGC FLAG = False,Meter:[id number] Greens Planter:3460 Javed Carlo Performed By: #### 4 [id number] #### [facility] (DEFAULT) [address] [place] [address] 73328 Glucose [Mass/Vol] 163 mg/dL High 74-118 [facility] Comment on above: Result Comment: OPR_ ID=IN_LIST,TGC FLAG = False,Meter:[id number] Greens Planter:Kd Matos Performed By: #### 1 [id number], [id number], 6041640 #### [facility] (DEFAULT) [address] [place] [address] .Auto Diff 07-20-2024 Auto Cherry % 9 % Normal 1-12 [facility] Comment on above: Performed By: #### 1 0802321, 0461103, [id number] #### [facility] (DEFAULT) [address] [place] [address] Baso Abs# 0.0 x10 Normal 0.0-0.2 [facility] Comment on above: Performed By: #### 1 1612094, 2488999, [id number] #### [facility] (DEFAULT) [address] [place] [address] Basophils/100 WBC (Bld) 0.4 % Normal 0.2-2.0 [facility] Comment on above: Performed By: #### 1 0953253, 7836541, 0951122461 #### [facility] (DEFAULT) [address] [place] [address] Eos Abs# 0.2 x10 Normal 0.0-0.4 [facility] Comment on above: Performed By: #### 1 1298052, 9636427, 7525941284 #### [facility] (DEFAULT) [address] [place] [address] Eosinophils/100 WBC (Bld) 3.1 % Normal 0.9-4.0 [facility] Comment on above: Performed By: #### 1 7111560, 3317303, [id number] #### [facility] (DEFAULT) [address] [place] [address] Lymph Abs# 2.9 x10 Normal 1.3-2.9 [facility] Comment on above: Performed By: #### 1 2435278, 5122896, 3480278534 #### [facility] (DEFAULT) [address] [place] [address] 57730 Lymphocytes/100 WBC (Bld) 39 % Normal 14-48 [facility] Comment on above: Performed By: #### 1 6649132, 2243717, 9208492543 #### [facility] (DEFAULT) [address] [place] [address] 09786 Cherry Abs# 0.7 x10 Normal 0.0-0.8 [facility] Comment on above: Performed By: #### 1 1232601, 9349612, [id number] #### [facility] (DEFAULT) [address] [place] [address] 46393 Neut Abs# 3.6 x10 Normal 1.5-9.2 [facility] Comment on above: Performed By: #### 1 6408270, 4149697, 6050978204 #### [facility] (DEFAULT) [address] [place] [address] 60316 Neutrophils/100 WBC (Bld) 48 % Normal 44-88 [facility] Comment on above: Performed By: #### 1 5395516, 0408933, 1627741299 #### [facility] (DEFAULT) [address] [place] [address] 79911 [facility] Standardon 07-20-2024 eGFR Non AA 43 mL/min/1.73m2 Invalid Interpretation Code [facility] Comment on above: Performed By: #### 1 8177169, 9567586, [id number] ####[facility] (DEFAULT)[address] [place] [address] 07209 eGFR AA 52 mL/min/1.73m2 Invalid Interpretation Code [facility] Comment on above: Performed By: #### 1 8190925, 5473778, [id number] ####[facility] (DEFAULT)[address] [place] [address] 95128 Calcium [Mass/Vol] 8.0 mg/dL Low 8.9-10.3 [facility] Comment on above: Performed By: #### 1 0516064, 3306931, [id number] ####[facility] (DEFAULT)[address] [place] [address] 59848 Chloride [Moles/Vol] 101 mmol/L Normal 101-111 [facility] Comment on above: Performed By: #### 1 7993302, 2927708, [id number] ####[facility] (DEFAULT)[address] [place] [address] 04620 CO2 [Moles/Vol] 26 mmol/L Normal 21-32 [facility] Comment on above: Performed By: #### 1 5506275, 5628556, 0505140522 ####[facility] (DEFAULT)[address] [place] [address] 99801 Creatinine [Mass/Vol] 1.19 mg/dL Normal 0.60-1.30 [facility] Comment on above: Performed By: #### 1 4773979, 5740144, [id number] ####[facility] (DEFAULT)[address] [place] [address] 86907 Glucose [Mass/Vol] 237.0 mg/dL High 74.0-118.0 [facility] Comment on above: Performed By: #### 1 1813992, 8832925, 9238239343 ####[facility] (DEFAULT)[address] [place] [address] 12346 Potassium [Moles/Vol] 4.1 mmol/L Normal 3.6-5.1 [facility] Comment on above: Result Comment: Pota ssium Therapy Performed By: #### 1 9489952, 9747707, 3339097953 ####[facility] (DEFAULT)[address] [place] [address] 48467 Sodium [Moles/Vol] 134.0 mmol/L Low 136.0-144.0 [facility] Comment on above: Performed By: #### 1 3248875, 7444365, 3584038888 ####[facility] (DEFAULT)[address] [place] [address] 51816 Urea nitrogen [Mass/Vol] 27 mg/dL High 8-26 [facility] Comment on above: Performed By: #### 1 9941447, 8988385, 5995361171 ####[facility] (DEFAULT)[address] [place] [address] 63240 Anion gap [Moles/Vol] 11.1 mmol/L Normal 5.0-19.0 [facility] Comment on above: Performed By: #### 1 2769749, 8574657, 2289780109 ####[facility] (DEFAULT)[address] [place] [address] 17943 Osmolality 281 mOsm/L Invalid Interpretation Code [facility] Comment on above: Performed By: #### 1 3913503, 3989420, 0445404730 ####[facility] (DEFAULT)[address] [place] [address] 78070 Urea nitrogen/Creatinine [Mass ratio] 22.6 mg/mg High 4.6-16.2 [facility] Comment on above: Performed By: #### 1 0901205, 0417186, 8123917692 ####[facility] (DEFAULT)[address] [place] [address] 18991 C MRSA Screenon 07-20-2024 C MRSA Screen Negative Normal [facility] Comment on above: Performed By: #### 1 [id number] ####[facility] (DEFAULT)[address] [place] [address] 56684 CBC w/ Auto Diffon Erythrocyte distribution width (RBC) [Ratio] 16.9 % High 11.5-15.0 [facility] Comment on above: Performed By: #### 1 6126887, 8805076, [id number] #### [facility] (DEFAULT) [address] [place] [address] 63124 Hematocrit (Bld) [Volume fraction] 37.8 % Normal 33.7-40.4 [facility] Comment on above: Performed By: #### 1 8316879, 2668539, [id number] #### [facility] (DEFAULT) [address] [place] [address] 17217 Hemoglobin (Bld) [Mass/Vol] 12.2 g/dL Normal 11.3-15.9 [facility] Comment on above: Performed By: #### 1 5830362, 2939855, 5893228110 #### [facility] (DEFAULT) [address] [place] [address] 05789 Man Diff? Auto Invalid Interpretation Code [facility] Comment on above: Performed By: #### 1 7128112, 6967920, [id number] #### [facility] (DEFAULT) [address] [place] [address] 21584 MCH (RBC) [Entitic mass] 30 pg Normal 24-34 [facility] Comment on above: Performed By: #### 1 2891567, 2038205, [id number] #### [facility] (DEFAULT) [address] [place] [address] 19584 MCHC (RBC) [Mass/Vol] 32 g/dL Normal 26-37 [facility] Comment on above: Performed By: #### 1 2870471, 4640213, 4532343402 #### [facility] (DEFAULT) [address] [place] [address] 90040 MCV (RBC) [Entitic vol] 91 fL Normal 81-100 [facility] Comment on above: Performed By: #### 1 8097288, 5080062, 4060811610 #### [facility] (DEFAULT) [address] [place] [address] Platelet 162 x10 Normal 138-427 [facility] Comment on above: Performed By: #### 1 0108768, 3825386, [id number] #### [facility] (DEFAULT) [address] [place] [address] 89871 Platelet mean volume (Bld) [Entitic vol] 9.1 fL Normal 6.3-10.2 [facility] Comment on above: Performed By: #### 1 8879576, 9154355, 2031304750 #### [facility] (DEFAULT) [address] [place] [address] 49179 RBC 4.14 x10 Normal 3.70-5.30 [facility] Comment on above: Performed By: #### 1 7302415, 1028536, [id number] #### [facility] (DEFAULT) [address] [place] [address] 36150 WBC 7.5 x10 Normal 3.5-10.5 [facility] Comment on above: Performed By: #### 1 7724135, 5448825, [id number] #### [facility] (DEFAULT) [address] [place] [address] 08047 POCT Glucose Levelon 024 Glucose [Mass/Vol] 254 mg/dL High [address] [place] [address] Comment on above: Result Comment: OPR_ ID=IN_LIST,TGC FLAG = False,Meter:[id number] Greens Planter:YanelisMusa Luisito Moyer Performed By: #### 1 1538174, [id number], 3900020 #### [facility] (DEFAULT) [address] [place] [address] 03551 Glucose [Mass/Vol] 185 mg/dL High [address] [place] [address] Comment on above: Result Comment: OPR_ ID=IN_LIST,TGC FLAG = False,Meter:[id number] Greens Planter:3518 Jaime Giavahna Performed By: #### 1 7418677, [id number], 3801914 #### [facility] (DEFAULT) [address] [place] [address] 17118 Glucose [Mass/Vol] 204 mg/dL High [address] [place] [address] Comment on above: Result Comment: OPR_ ID=IN_LIST,TGC FLAG = False,Meter:[id number] Greens Planter:3518 [place] Giav[place]na Performed By: #### 1 [id number], [id number], 7081895 #### [facility] (DEFAULT) [address] [place] [address] 88824 Glucose [Mass/Vol] 233 mg/dL High [address] [place] [address] Comment on above: Result Comment: OPR_ ID=IN_LIST,TGC FLAG = False,Meter:[id number] Greens Planter:3518 Jaime Giavahna Performed By: #### 4 [id number] #### [facility] (DEFAULT) [address] [place] [address] 05486 .Auto Diff 107-19-2024 Auto Cherry % 9 % Normal 12 [facility] Comment on above: Performed By: #### 1 4253673, [id number], 1531489 #### [facility] (DEFAULT) [address] [place] [address] 59567 Baso Abs# 0.1 x10 Normal 0.0-0.2 [facility] Comment on above: Performed By: #### 1 7062341, 1987125651, 2939799 #### [facility] (DEFAULT) [address] [place] [address] 96479 Basophils/100 WBC (Bld) 1.0 % Normal 0.2-2.0 [facility] Comment on above: Performed By: #### 1 2946475, [id number], 9955926 #### [facility] (DEFAULT) [address] [place] [address] 70713 Eos Abs# 0.2 x10 Normal 0.0-0.4 [facility] Comment on above: Performed By: #### 1 1052324, 3214916102, 2406608 #### [facility] (DEFAULT) [address] [place] [address] 66238 Eosinophils/100 WBC (Bld) 1.9 % Normal 0.9-4.0 [facility] Comment on above: Performed By: #### 1 5970438, 9759688877, 8124937 #### [facility] (DEFAULT) [address] [place] [address] 65265 Lymph Abs# 3.5 x10 High 1.3-2.9 [facility] Comment on above: Performed By: #### 1 4723148, 4702947892, 6672786 #### [facility] (DEFAULT) [address] [place] [address] 20681 Lymphocytes/100 WBC (Bld) 35 % Normal 14-48 [facility] Comment on above: Performed By: #### 1 7287354, 7691309348, 7732588 #### [facility] (DEFAULT) [address] [place] [address] 04654 Cherry Abs# 0.9 x10 High 0.0-0.8 [facility] Comment on above: Performed By: #### 1 2910795, [id number], 8388581 #### [facility] (DEFAULT) [address] [place] [address] 39169 Neut Abs# 5.3 x10 Normal 1.5-9.2 [facility] Comment on above: Performed By: #### 1 5737336, 1376663003, 6759254 #### [facility] (DEFAULT) [address] [place] [address] 00498 Neutrophils/100 WBC (Bld) 53 % Normal 44-88 [facility] Comment on above: Performed By: #### 1 4001102, [id number], 3561240 #### [facility] (DEFAULT) [address] [place] [address] 28519 BMP Standardon 07-19-2024 eGFR Non AA 39 mL/min/1.73m2 Invalid Interpretation Code [facility] Comment on above: Performed By: #### 1 0905134, 1408238592, 5988119 #### [facility] (DEFAULT) [address] [place] [address] 23886 eGFR AA 47 mL/min/1.73m2 Invalid Interpretation Code [facility] Comment on above: Performed By: #### 1 6013404, 7589281769, 5415479 #### [facility] (DEFAULT) [address] [place] [address] 43472 Anion gap [Moles/Vol] 10.3 mmol/L Normal 5.0-19.0 [facility] Comment on above: Performed By: #### 1 3338100, 2260726220, 0438229 #### [facility] (DEFAULT) [address] [place] [address] 19752 Calcium [Mass/Vol] 8.3 mg/dL Low 8.9-10.3 [facility] Comment on above: Performed By: #### 1 4552461, [id number], 9536372 #### [facility] (DEFAULT) [address] [place] [address] 71003 Chloride [Moles/Vol] 102 mmol/L Normal 101-111 [facility] Comment on above: Performed By: #### 1 3961280, [id number], 2595372 #### [facility] (DEFAULT) [address] [place] [address] 39351 CO2 [Moles/Vol] 29 mmol/L Normal 21-32 [facility] Comment on above: Performed By: #### 1 1447049, [id number], 9975062 #### [facility] (DEFAULT) [address] [place] [address] [id number] Creatinine [Mass/Vol] 1.30 mg/dL Normal 0.60-1.30 [facility] Comment on above: Performed By: #### 1 [id number], [id number], [id number] #### [facility] (DEFAULT) [address] [place] [address] [id number] Glucose [Mass/Vol] 137.0 mg/dL High 74.0-118.0 [facility] Comment on above: Performed By: #### 1 [id number], [id number], [id number] #### [facility] (DEFAULT) [address] [place] [address] [id number] Osmolality 283 mOsm/L Invalid Interpretation Code [facility] Comment on above: Performed By: #### 1 [id number], [id number] #### [facility] (DEFAULT) [address] [place] [address] [id number] Potassium [Moles/Vol] 3.3 mmol/L Low 3.6-5.1 [facility] Comment on above: Performed By: #### 1 [id number], [id number], [id number] #### [facility] (DEFAULT) [address] [place] [address] [id number] Sodium [Moles/Vol] 138.0 mmol/L Normal 136.0-144.0 [facility] Comment on above: Performed By: #### 1 [id number], [id number], [id number] #### [facility] (DEFAULT) [address] [place] [address] 08837 Urea nitrogen [Mass/Vol] 27 mg/dL High 8-26 [facility] Comment on above: Performed By: #### 1 [id number], [id number], [id number] #### [facility] (DEFAULT) [address] [place] [address] 47057 Urea nitrogen/Creatinine [Mass ratio] 20.7 mg/mg High 4.6-16.2 [facility] Comment on above: Performed By: #### 1 [id number], [id number], [id number] #### [facility] (DEFAULT) [address] [place] [address] 17680 CBC w/ Auto Diffon 4 Erythrocyte distribution width (RBC) [Ratio] 16.7 % High 11.5-15.0 [facility] Comment on above: Performed By: #### 1 [id number], [id number], [id number] #### [facility] (DEFAULT) [address] [place] [address] Hematocrit (Bld) [Volume fraction] 38.3 % Normal 33.7-40.4 [facility] Comment on above: Performed By: #### 1 [id number], [id number], 8484098 #### [facility] (DEFAULT) [address] [place] [address] Hemoglobin (Bld) [Mass/Vol] 12.6 g/dL Normal 11.3-15.9 [facility] Comment on above: Performed By: #### 1 [id number], [id number], [id number] #### [facility] (DEFAULT) [address] [place] [address] Man Diff? Auto Invalid Interpretation Code [facility] Comment on above: Performed By: #### 1 [id number], [id number], [id number] #### [facility] (DEFAULT) [address] [place] [address] MCH (RBC) [Entitic mass] 29 pg Normal 24-34 [facility] Comment on above: Performed By: #### 1 [id number], [id number], 1198787 #### [facility] (DEFAULT) [address] [place] [address] 84508 MCHC (RBC) [Mass/Vol] 33 g/dL Normal 26-37 [facility] Comment on above: Performed By: #### 1 [id number], [id number], [id number] #### [facility] (DEFAULT) [address] [place] [address] MCV (RBC) [Entitic vol] 90 fL Normal 81-100 [facility] Comment on above: Performed By: #### 1 [id number], [id number], 8659521 #### [facility] (DEFAULT) [address] [place] [address] 79511 Platelet 176 x10 Normal 138-427 [facility] Comment on above: Performed By: #### 1 [id number], [id number], 2888953 #### [facility] (DEFAULT) [address] [place] [address] 21137 Platelet mean volume (Bld) [Entitic vol] 8.2 fL Normal 6.3-10.2 [facility] Comment on above: Performed By: #### 1 [id number], [id number], 6663380 #### [facility] (DEFAULT) [address] [place] [address] 84526 RBC 4.27 x10 Normal 3.70-5.30 [facility] Comment on above: Performed By: #### 1 [id number], [id number], 4481161 #### [facility] (DEFAULT) [address] [place] [address] 69219 WBC 10.0 x10 Normal 3.5-10.5 [facility] Comment on above: Performed By: #### 1 [id number], [id number], 0799457 #### [facility] (DEFAULT) [address] [place] [address] 64503 ED Note-Nursingon 07-19-2024 ED Note-Nursing Patient is currently admitted to [facility] and pending labs will be reviewed by admitting provider. Normal [facility] HgbA1c Standardon 07-19-2024 .Hb 15.6 Invalid Interpretation Code [facility] Comment on above: Performed By: #### 1 [id number] ####[facility] (DEFAULT)[address] [place] [address] 03603 .Hgb A1c 0.85 g/dL Invalid Interpretation Code [facility] Comment on above: Performed By: #### 1 [id number] ####[facility] (DEFAULT)[address] [place] [address] 21486 Glucose [Mass/Vol] 157 mg/dL Invalid Interpretation Code [facility] Comment on above: Performed By: #### 1 [id number] ####[facility] (DEFAULT)[address] [place] [address] HbA1c (Bld) [Mass fraction] 7.1 % High 4.6-6.2 [facility] Comment on above: Performed By: #### 1 [id number] ####[facility] (DEFAULT)[address] [place] [address] 36883 Nutrition Noteon 07-19-2024 Nutrition Note Pt admitted w/ dehydration, elevated BS. Pt w/ DM, on a 1800Cd diet. 07/18 and 07/19 wts noted at 147.2kg, 137.8kg and 143.1kg; unsure most accurate. Pt w/ 4+ cathy LE edema, chronic venous stasis ulcers w/areas of cellulitis, excoriated skin folds. Cr 1.53H on admit, corrected w/ IVF and holding diuretics, K 3.3L being replaced, BS ranging 80-217H, hgbA1C 7.1% DM meds adjusted. Given advanced age of 83y w/ comorbidities, hgbA1C ideal. No chewing/swallowing problems identified. Pt w/ social concerns of homelessness as has been living w/ different family members, current situation not ideal. Will initiate Fransico to aid in wound healing and monitor need to add low Na guidelines once appetite established. To follow. Normal [facility] POCT Glucose Levelon 024 Glucose [Mass/Vol] 273 mg/dL High 74-118 [facility] Comment on above: Result Comment: Jannie ellsworth Meter,OPR_ID=IN_LIST,TGC FLAG = False,Meter:[id number] Greens Planter:321Refugio Hernandez Performed By: #### 1 [id number], [id number], [id number] #### [facility] (DEFAULT) [address] [place] [address] 81492 Glucose [Mass/Vol] 188 mg/dL High 74-118 [facility] Comment on above: Result Comment: OPR_ ID=IN_LIST,TGC FLAG = False,Meter:[id number] Greens Planter:357Fernando Tuttle Performed By: #### 1 [id number], [id number], [id number] #### [facility] (DEFAULT) [address] [place] [address] Glucose [Mass/Vol] 217 mg/dL High 74-118 [facility] Comment on above: Result Comment: OPR_ ID=IN_LIST,TGC FLAG = False,Meter:[id number] Greens Planter:342Musa Samayoa Performed By: #### 1 [id number], [id number], 7351671 #### [facility] (DEFAULT) [address] [place] [address] Glucose [Mass/Vol] 188 mg/dL High 74-118 [facility] Comment on above: Result Comment: OPR_ ID=IN_LIST,TGC FLAG = False,Meter:[id number] Greens Planter:Odette Tuttle Performed By: #### 1 [id number], [id number], [id number] #### [facility] (DEFAULT) [address] [place] [address] Pharmacy Noteon 07-19-2024 Pharmacy Note The following medications(s) has been reviewed for renal dose adjustment per P &T protocol based on the patient's current creatinine clearance: Medication: _ Cefuroxime Estimated CrCl:47 ml/min (based on adjusted body weight) Action: No change required Changes Made: None [Electronically Signed on: 07/19/2024 13:50 EDT] __ Michael Carrasquillo PharmD [Verified on: 07/19/2024 13:50 EDT] __ Michael Carrasquillo PharmD Normal [facility] .Auto Diff 107-18-2024 Auto Cherry % 11 % Normal 11-15 [facility] Comment on above: Performed By: #### 1 [id number], [id number], 9554886 #### [facility] (DEFAULT) [address] [place] [address] Baso Abs# 0.1 x10 Normal 0.0-0.2 [facility] Comment on above: Performed By: #### 1 8669605, [id number], 7621597 #### [facility] (DEFAULT) [address] [place] [address] 26052 Basophils/100 WBC (Bld) 0.6 % Normal 0.2-2.0 [facility] Comment on above: Performed By: #### 1 7527453, [id number], 1851622 #### [facility] (DEFAULT) [address] [place] [address] 36503 Eos Abs# 0.2 x10 Normal 0.0-0.4 [facility] Comment on above: Performed By: #### 1 [id number], [id number], 9945267 #### [facility] (DEFAULT) [address] [place] [address] 70239 Eosinophils/100 WBC (Bld) 2.2 % Normal 0.9-4.0 [facility] Comment on above: Performed By: #### 1 3970649, [id number], 0833158 #### [facility] (DEFAULT) [address] [place] [address] 37802 Lymph Abs# 3.3 x10 High 1.3-2.9 [facility] Comment on above: Performed By: #### 1 7330338, [id number], 6346028 #### [facility] (DEFAULT) [address] [place] [address] 92133 Lymphocytes/100 WBC (Bld) 34 % Normal 14-48 [facility] Comment on above: Performed By: #### 1 [id number], [id number], 6914299 #### [facility] (DEFAULT) [address] [place] [address] 40220 Cherry Abs# 1.0 x10 High 0.0-0.8 [facility] Comment on above: Performed By: #### 1 5782885, [id number], 5371515 #### [facility] (DEFAULT) [address] [place] [address] 07558 Neut Abs# 5.1 x10 Normal 1.5-9.2 [facility] Comment on above: Performed By: #### 1 9879915, [id number], 3647580 #### [facility] (DEFAULT) [address] [place] [address] Neutrophils/100 WBC (Bld) 52 % Normal 44-88 [facility] Comment on above: Performed By: #### 1 [id number], [id number], 3574332 #### [facility] (DEFAULT) [address] [place] [address] .QC SARS-CoV-2 (COVID-19)/Fl u/RSV (GeneXpert)on 07-18-2024 Internal Control Pass Normal [facility] Comment on above: Order Comment: Order ed by Discern.[[id number]] Performed By: #### 7 [id number], [id number] ####[facility] (DEFAULT)[address] [place] [address] CBC w/ Auto Diffon Erythrocyte distribution width (RBC) [Ratio] 17.1 % High 11.5-15.0 [facility] Comment on above: Performed By: #### 1 [id number], [id number], 9879321 #### [facility] (DEFAULT) [address] [place] [address] Hematocrit (Bld) [Volume fraction] 41.8 % High 33.7-40.4 [facility] Comment on above: Performed By: #### 1 0443871, [id number], 9709610 #### [facility] (DEFAULT) [address] [place] [address] Hemoglobin (Bld) [Mass/Vol] 13.5 g/dL Normal 11.3-15.9 [facility] Comment on above: Performed By: #### 1 [id number], [id number], 0805612 #### [facility] (DEFAULT) [address] [place] [address] Man Diff? Auto Invalid Interpretation Code [facility] Comment on above: Performed By: #### 1 2203593, [id number], 0124079 #### [facility] (DEFAULT) [address] [place] [address] 47044 MCH (RBC) [Entitic mass] 30 pg Normal 24-34 [facility] Comment on above: Performed By: #### 1 0251299, [id number], 3773708 #### [facility] (DEFAULT) [address] [place] [address] 09940 MCHC (RBC) [Mass/Vol] 32 g/dL Normal 26-37 [facility] Comment on above: Performed By: #### 1 5531967, [id number], 3883169 #### [facility] (DEFAULT) [address] [place] [address] 77853 MCV (RBC) [Entitic vol] 91 fL Normal 81-100 [facility] Comment on above: Performed By: #### 1 [id number], [id number], 3859497 #### [facility] (DEFAULT) [address] [place] [address] Platelet 197 x10 Normal 138-427 [facility] Comment on above: Performed By: #### 1 2283885, [id number], 7611662 #### [facility] (DEFAULT) [address] [place] [address] 71928 Platelet mean volume (Bld) [Entitic vol] 8.4 fL Normal 6.3-10.2 [facility] Comment on above: Performed By: #### 1 8400644, [id number], 9931396 #### [facility] (DEFAULT) [address] [place] [address] RBC 4.59 x10 Normal 3.70-5.30 [facility] Comment on above: Performed By: #### 1 9002233, [id number], 9282278 #### [facility] (DEFAULT) [address] [place] [address] WBC 9.6 x10 Normal 3.5-10.5 [facility] Comment on above: Performed By: #### 1 2600432, [id number], 8958332 #### [facility] (DEFAULT) [address] [place] [address] CMP Standardon 07-18-2024 eGFR Non AA 32 mL/min/1.73m2 Invalid Interpretation Code [facility] Comment on above: Performed By: #### 1 8957568, [id number], 7030936 #### [facility] (DEFAULT) [address] [place] [address] 28253 eGFR AA 39 mL/min/1.73m2 Invalid Interpretation Code [facility] Comment on above: Performed By: #### 1 9595342, [id number], 1964620 #### [facility] (DEFAULT) [address] [place] [address] 33434 Albumin [Mass/Vol] 4.1 g/dL Normal 3.5-5.0 [facility] Comment on above: Performed By: #### 1 5766414, [id number], 2948843 #### [facility] (DEFAULT) [address] [place] [address] 71139 Albumin/Globulin [Mass ratio] 1.1 {ratio} Low 1.4-2.6 [facility] Comment on above: Performed By: #### 1 4209555, [id number], 2894977 #### [facility] (DEFAULT) [address] [place] [address] 71440 Alk Phos 50 IU/L Normal 32-91 [facility] Comment on above: Performed By: #### 1 2330117, [id number], 1873312 #### [facility] (DEFAULT) [address] [place] [address] 58119 ALT [Catalytic activity/Vol] 22.0 U/L Normal 14.0-54.0 [facility] Comment on above: Performed By: #### 1 1016610, [id number], 6592777 #### [facility] (DEFAULT) [address] [place] [address] 45309 Anion gap [Moles/Vol] 9.6 mmol/L Normal 5.0-19.0 [facility] Comment on above: Performed By: #### 1 [id number], [id number], 8919560 #### [facility] (DEFAULT) [address] [place] [address] 57955 AST [Catalytic activity/Vol] 21 U/L Normal 15-41 [facility] Comment on above: Performed By: #### 1 7119263, [id number], 8518265 #### [facility] (DEFAULT) [address] [place] [address] 89089 Bili Total 0.9 mg/dL Normal 0.3-1.2 [facility] Comment on above: Performed By: #### 1 2665114, 8130133533, 8956765 #### [facility] (DEFAULT) [address] [place] [address] 88742 Calcium [Mass/Vol] 8.8 mg/dL Low 8.9-10.3 [facility] Comment on above: Performed By: #### 1 2359164, [id number], 3601735 #### [facility] (DEFAULT) [address] [place] [address] 85909 Chloride [Moles/Vol] 99 mmol/L Low 101-111 [facility] Comment on above: Performed By: #### 1 4230647, [id number], 6465679 #### [facility] (DEFAULT) [address] [place] [address] 88811 CO2 [Moles/Vol] 30 mmol/L Normal 21-32 [facility] Comment on above: Performed By: #### 1 4902655, [id number], 1981022 #### [facility] (DEFAULT) [address] [place] [address] 23413 Creatinine [Mass/Vol] 1.53 mg/dL High 0.60-1.30 [facility] Comment on above: Performed By: #### 1 2168506, [id number], 0971206 #### [facility] (DEFAULT) [address] [place] [address] 06023 Globulin (S) [Mass/Vol] 3.5 g/dL Normal 1.5-4.3 [facility] Comment on above: Performed By: #### 1 2506805, [id number], 6367559 #### [facility] (DEFAULT) [address] [place] [address] 27055 Glucose [Mass/Vol] 80.0 mg/dL Normal 74.0-118.0 [facility] Comment on above: Performed By: #### 1 9457187, [id number], 5114041 #### [facility] (DEFAULT) [address] [place] [address] 18868 Osmolality 275 mOsm/L Invalid Interpretation Code [facility] Comment on above: Performed By: #### 1 8584527, [id number], 5890737 #### [facility] (DEFAULT) [address] [place] [address] 46021 Potassium [Moles/Vol] 3.6 mmol/L Normal 3.6-5.1 [facility] Comment on above: Performed By: #### 1 5641582, [id number], 2627973 #### [facility] (DEFAULT) [address] [place] [address] 19060 Protein [Mass/Vol] 7.6 g/dL Normal 6.5-8.1 [facility] Comment on above: Performed By: #### 1 5092082, [id number], 8602285 #### [facility] (DEFAULT) [address] [place] [address] 94467 Sodium [Moles/Vol] 135.0 mmol/L Low 136.0-144.0 [facility] Comment on above: Performed By: #### 1 3740408, [id number], 0842725 #### [facility] (DEFAULT) [address] [place] [address] 68379 Urea nitrogen [Mass/Vol] 29 mg/dL High 8-26 [facility] Comment on above: Performed By: #### 1 5375912, [id number], 4909988 #### [facility] (DEFAULT) [address] [place] [address] 96754 Urea nitrogen/Creatinine [Mass ratio] 18.9 mg/mg High 4.6-16.2 [facility] Comment on above: Performed By: #### 1 3945015, [id number], 4674429 #### [facility] (DEFAULT) [address] [place] [address] 39003 COVID/Flu/RSV (GeneXpert)on 07-18-2024 Flu A (GXpert COVFLURSV) Negative Normal Negative [facility] Comment on above: Performed By: #### 7 [id number], [id number] ####[facility] (DEFAULT)[address] [place] [address] 89205 Flu B (GXpert COVFLURSV) Negative Normal Negative [facility] Comment on above: Performed By: #### 7 [id number], [id number] ####[facility] (DEFAULT)[address] [place] [address] 59340 RSV (GXpert COVFLURSV) Negative Normal Negative [facility] Comment on above: Performed By: #### 7 [id number], [id number] ####[facility] (DEFAULT)[address] [place] [address] 94274 SARS-CoV-2 (COVID-19) RNA LAURE+probe Ql (Unsp spec) Negative Normal Negative [facility] Comment on above: Result Comment: Perf ormed by PCR methodology. Performed By: #### 7 [id number], [id number] ####[facility] (DEFAULT)[address] [place] [address] 46543 ED Clinical Summaryon 2023 ED Clinical Summary [facility] - Emergency Department [address] [place] [address] ED Clinical Summary PERSON INFORMATION Name: JOYCELYN HAMM Age: 83 Years Sex: FEMALE : 1940 MRN: Acct#: Visit Reason: Hyperglycemia; Hyperglycemia; DEHYDRATION Arrival: 07/18/2024 19:51:24 Discharge: LOS: 000 03:55 Check In: 07/18/2024 19:51:24 Checkout:07/18/2024 23:46:42 Address: [address] [place] [address] PCP: Keaton Givens MD PROVIDER INFORMATION Provider Role Assigned Unassigned Alannah Rocha TITLE CAMERA OPERATOR Nurse 07/18/2024 20:04:34 Jose Price DO ED Provider 07/18/2024 20:24:12 VITALS INFORMATION Vital Sign Triage Latest Temperature Tympanic Temperature Temporal Artery Pulse Rate 80 bpm 69 bpm O2 Sat 96 % 97 % Respiratory Rate 18 br/min 18 br/min Blood Pressure /70 mmHg /70 mmHg MEDICAL INFORMATION Medications Given: Allergy Information: No known allergies PHYSICIAN DOCUMENTATION DISCHARGE INFORMATION: Discharge Disposition: Admitted as Observation Discharge Location: PATIENT EDUCATION INFORMATION Instructions: Follow-Up: DIAGNOSIS: Dehydration; Diabetes Patient Understands: Yes - Patient/family/career technology teacher verbalizes understanding of instructions given Comment: Mora [facility] ED Note - Physicianon 2023 ED Note - Physician Patient: JOYCELYN HAMM Age: 83 years Sex: FEMALE : 1940 Associated Diagnoses: Dehydration; Diabetes Author: Jose Price DO Basic Information Time seen: Date & time 07/18/2024 20:51:00. History source: Patient. Arrival mode: Private vehicle. History of Present Illness The patient presents with This patient presents to the emergency room stating that she was at home, and her blood sugar was above 300, she did not want to go any higher, so she took her normal evening diabetic medications and then came to the emergency room, where upon arrival her point of contact glucose was half of that. She states she does not have any chest pain or shortness of breath, she did not have any flank pain she has not had any urinary complaints, she has had no nausea vomiting or diarrhea, she states that she feels weak sometimes, recently more than previously, she states that she does not have any kidney failure, she has not had any fevers, she has not been around anybody who is ill.she took nothing for this, states she does not otherwise believe she is ill, She states that the accommodations in which she is staying is a brother's home, in which she has been in a cast for 2 weeks, and states that she does not want to go back to that location, that it is very dirty, that there is no hot water in the house, that there is no kitchen sink, that the bathroom has holes in the floor which you have to be careful to negotiate, she states she has not fallen, she just states that she is not feeling very well about being there. Otherwise, she does not smoke, does not drink, she states that her diabetes has been pretty well under control, that she does not have any chest pain or shortness of breath she has not had any congestion that was just COVID, she has had no vomiting or diarrhea, she states that she has been taking some antibiotics for a urinary tract infection. She states she normally has swelling of her lower extremities, that she uses a lymph pump at home 3 times a day for her legs, that she has a chronic lower leg condition, which she states has not changed, bilaterally, that she takes something for her diabetes 3 times a day, On exam, she is an elderly lady, with good eye contact, somewhat disheveled, no offense, neck is supple, there is no anterior posterior supraclavicular nodes, pharynx is symmetric without any stridor or hoarseness, she has a supple neck, JVD that is not present at 20 degrees, her lungs are clear, she is not tachypneic and she is not splinting her respirations, heart rate and rhythm is regular, PMI left chest, she has good radial pulses, and she has specialized wraps to her lower legs which I did not loosen. Her abdomen is large, nontender, she has no paradoxical chest abdominal motion, she is nonicteric, her neurologic exam symmetric and intact, anterior psychiatric evaluation is appropriate, she is alert and oriented x 4. . Medical Decision Making Orders Launch Orders Laboratory: SARS-CoV-2 (COVID-19)/Flu/RSV (GeneXpert) (Order): Nasopharyngeal Swab, 07/18/2024 20:53 EDT, Stat collect, Nurse collect Lactate (Order): Blood, Stat collect, 07/18/2024 20:52 EDT, Lab Collect Troponin I High Sensitivity (Order): Blood, Stat collect, 07/18/2024 20:52 EDT, Lab Collect CBC w/ Auto Diff (Order): Blood, Stat collect, 07/18/2024 20:52 EDT, Lab Collect CMP Standard (Order): Blood, Stat collect, 07/18/2024 20:52 EDT, Lab Collect Urinalysis with Culture, if indicated Standard (Order): Urine, Stat collect, 07/18/2024 20:52 EDT, Nurse collect Patient Care: Cardiac Monitoring (Order): 07/18/2024 20:53 EDT, Constant Order Glucose POC (RE) (Order): 07/18/2024 20:53 EDT Cardiovascular: EKG (Order): 07/18/2024 20:52 EDT, OTHER - See Associated Diagnosis, Launch Orders Patient Care: Dietary Communication Order (Order): 07/18/2024 22:52 EDT, diabetic dinner Glucose POC (RE) (Order): 07/18/2024 22:52 EDT . Electrocardiogram: Time 07/18/2024 22:13:00, rate 63, normal sinus rhythm, No ST-T changes, no ectopy, normal OH & QRS intervals, EP Interp, No prior tracings this facility, no prior tracings this facilty. . Results review: Interpretation Abnormal results Elevated BUN and creatinine, pretty much normal urine, normal troponin,. Reexamination/ Reevaluation Vital signs Patient wants to stay here overnight, and the patient has nowhere to go this evening. She was staying she states with a family member, for 3 weeks, prior to the current 2 weeks that she has been staying with her brother, and those family members also do not want her to come back home, her brother is here, no offense, also somewhat disheveled, the patient states that she does not the physical qualities of the environment in which she currently lives is good for her, and she does not want to go back home. She rested here in the emergency room, she was responsive, she was appropriate, personal hygiene was poor. I think she will benefit from IV fluids, I also think samantha (more content not included)... [facility] ED Patient Education Noteon 07-18-2024 ED Patient Education Note Education Materials [facility] ED Patient Summaryon 024 ED Patient Summary [facility] - Emergency Department [address] [place] [address] PATIENT DISCHARGE INSTRUCTIONS Patient Information Name: JOYCELYN HAMM Age: 83 Years Date of : 1940 Reason For Visit: Hyperglycemia; Hyperglycemia; DEHYDRATION Arrival Time: 07/18/2024 19:51:24 Primary Care Physician: Keaton Givens MD Attending Physician: Chad Hwang MD Comment: Visit Diagnosis: Diagnoses This Visit Dehydration (E86.0) Diabetes (E11.9) Hyperglycemia ([id number]) Hyperglycemia ([id number]) The Pharmacy at [facility] is open Saturday through Saturday from 9A to 6P and Saturday and Saturday from 9A to 5P Prescription Information: If you have been given a prescription for narcotics, seek immediate medical attention if you have any difficulty breathing or any sudden status changes such as confusion and sleepiness. If you or anyone you know is experiencing suicidal thoughts, mental health, alcohol and/or drug addiction problems; contact the [facility] 27/05 Crisis Hotline -Text 0EEYN to [phone]. If you received any narcotics, sedation, or any other medication that causes drowsiness for the next 24 hours, unless otherwise directed: ? Do not drive a car. ? Do not operate machinery such as power tools, lawn mowers, drills, sewing machines, or stoves ? Avoid alcoholic beverages and drugs for allergies, nerves, or sleep ? Do not make important personal or business decisions or sign any legal documents Medication Information: The exam and treatment you received today in the [facility] Emergency Department were for an urgent problem and are not intended as complete care. It is important for you to follow up with a doctor, nurse practitioner, or physician?s billing and accounting staff assistant for ongoing care. If your symptoms become worse or you do not improve as expected and you are unable to reach your usual health care provider, you should return to the Emergency Department, we are available 24 hours a day. For those patients who have received Radiology results, the interpretation of your X-ray as given to you by our Emergency Department physician is only a preliminary report. The Radiologist will review your films and if there is a change in the diagnosis you will be notified by phone. Please make sure you have provided a working phone number so we can reach you if necessary. In the event that you had a lab culture while you were a patient in the Emergency Department, you will be notified by phone if there is a need to change your antibiotic. Please make sure you have provided a working phone number so we can reach you if necessary. [facility] Emergency Department has provided you with a complete list of medications post discharge. Please inform your otorhinolaryngologist/provider of your visit and for further instruction on these medications. Any specific questions regarding your chronic medications and dosages should be discussed with your primary care physician(s) and/or pharmacist. Medications to Continue That Have Not Changed Other Medications allopurinol (allopurinol 300 mg oral tablet) 1 tab(s) Oral (given by mouth) every day. apixaban (Eliquis 5 mg oral tablet) 1 tab(s) Oral (given by mouth) 2 times per day. bumetanide (bumetanide 2 mg oral tablet) 1 tab(s) Oral (given by mouth) every day. cetirizine (cetirizine 10 mg oral tablet) 1 tab(s) Oral (given by mouth) every day. dilTIAZem (Tiadylt ER 120 mg/24 hours oral capsule, extended release) 1 cap(s) Oral (given by mouth) every day. TAKE 1 CAPSULE (120 MG TOAL) BY MOUTH IN THE MORNING. Durable Medical Equipment for Prescription (ATORVASTATIN CALCIUM 40 MG TABS) See instructions. gabapentin (gabapentin 300 mg oral capsule) 1 cap(s) Oral (given by mouth) 2 times per day. insulin detemir (Levemir FlexPen 100 units/mL subcutaneous solution) INJECT 100 UNITS SUBCUTANEOUSLY AT BEDTIME.. levothyroxine (levothyroxine 137 mcg (0.137 mg) oral tablet) 1 tab(s) Oral (given by mouth) every day. linagliptin (Tradjenta 5 mg oral tablet) 1 tab(s) Oral (given by mouth) every day. mirabegron (Myrbetriq 25 mg oral tablet, extended release) 1 tab(s) Oral (given by mouth) every day. rOPINIRole (rOPINIRole 0.5 mg oral tablet) 1 tab(s) Oral (given by mouth) 3 times per day. spironolactone (spironolactone 25 mg oral tablet) 1 tab(s) Oral (given by mouth) 2 times per day. Visit Information Allergies: Substance Reaction Symptoms Type Comments No known allergies Drug Vital Signs: Vitals and Measurements this Visit (last charted value for your 07/18/2024 visit) Vital Signs This Visit Temperature Oral: 37 DegC Peripheral Pulse Rate: 69 bpm Respiratory Rate: 18 br/min Systolic Blood Pressure: 150 mmHg Diastolic Blood Pressure: 70 mmHg SpO2: 97 % Oxygen Therapy: Room air Measurements This Visit Height/Length Measu (more content not included)... Normal [facility] Extra Blueon 07-18-2024 Tube Collected Yes Invalid Interpretation Code [facility] Comment on above: Performed By: #### 1 [id number], [id number], [id number] #### [facility] (DEFAULT) [address] [place] [address]44[address] Lactic Acidon 07-18-2024 Lactic Acid 14.2 mg/dL Normal 4.5-19.8 [facility] Comment on above: Performed By: #### 2 [id number] ####[facility] (DEFAULT)[address] [place] [address] 35597 ROSE Formon 07-18-2024 ROSE Form [id number] [facility] POCT Glucose Levelon 024 Glucose [Mass/Vol] 167 mg/dL High 74-118 [facility] Comment on above: Result Comment: OPR_ ID=[email or web address],TGC FLAG = False,Meter:[id number] Greens Planter:Shady Aj Jaffe Performed By: #### 1 [id number], [id number], [id number] #### [facility] (DEFAULT) [address] [place] [address]4837 TnI HSon 07-18-2024 Troponin I High Sensitivity 10.7 pg/mL Normal <=15.0 [facility] Comment on above: Performed By: #### 1 [id number], [id number], [id number] #### [facility] (DEFAULT) [address] [place] [address] 19745 UA Okcpw7xg 07-18-2024 UA Amorph. 1+ [facility] Comment on above: Order Comment: Urina lysis Microscopic order added on by [employer] Expert Rules system. Performed By: #### 1 [id number], [id number], [id number] #### [facility] (DEFAULT) [address] [place] [address] 01754 UA Bacteria Trace Normal [facility] Comment on above: Order Comment: Urina lysis Microscopic order added on by [employer] Expert Rules system. Performed By: #### 1 [id number], [id number], [id number] #### [facility] (DEFAULT) [address] [place] [address] 50952 UA Hyal Cast 0-5 [facility] Comment on above: Order Comment: Urina lysis Microscopic order added on by [employer] Expert Rules system. Performed By: #### 1 [id number], [id number], [id number] #### [facility] (DEFAULT) [address] [place] [address] UA Mucous Trace [facility] Comment on above: Order Comment: Urina lysis Microscopic order added on by Dis[employer] Expert Rules system. Performed By: #### 1 [id number], [id number], [id number] #### [facility] (DEFAULT) [address] [place] [address] UA RBC 0-2 [facility] Comment on above: Order Comment: Urina lysis Microscopic order added on by Dis[employer] Expert Rules system. Performed By: #### 1 [id number], [id number], [id number] #### [facility] (DEFAULT) [address] [place] [address] UA Squam Epi Moderate [facility] Comment on above: Order Comment: Urina lysis Microscopic order added on by Dis[employer] Expert Rules system. Performed By: #### 1 [id number], [id number], [id number] #### [facility] (DEFAULT) [address] [place] [address] UA WBC 3-5 [facility] Comment on above: Order Comment: Urina lysis Microscopic order added on by Discern Expert Rules system. Performed By: #### 1 [id number], [id number], [id number] #### [facility] (DEFAULT) [address] [place] [address] 20183 UA w Culture if Ind Standard on 07-18-2024 Breakpoint UA [facility] Comment on above: Performed By: #### 1 [id number], [id number], [id number] #### [facility] (DEFAULT) [address] [place] [address] 75786 Color (U) Yellow [facility] Comment on above: Performed By: #### 1 [id number], [id number], [id number] #### [facility] (DEFAULT) [address] [place] [address] 88138 Culture? Indicated Invalid Interpretation Code [facility] Comment on above: Result Comment: Resu lt created by rule GL_MAGR_ADD_UA_CULT Result created by rule GL_MAGR_ADD_UA_CULT Result created by rule GL_MAGR_ADD_UA_CULT1 Result created by rule GL_MAGR_ADD_UA_CULT Performed By: #### 1 [id number], [id number], [id number] #### [facility] (DEFAULT) [address] [place] [address] 32052 Glucose (U) [Mass/Vol] 100 mg/dL Normal [facility] Comment on above: Performed By: #### 1 [id number], [id number], [id number] #### [facility] (DEFAULT) [address] [place] [address] 56353 Ketones Ql (U) Negative [facility] Comment on above: Performed By: #### 1 [id number], [id number], [id number] #### [facility] (DEFAULT) [address] [place] [address] 99676 Micro? Indicated Normal [facility] Comment on above: Result Comment: Resu lt created by rule GL_MAGR_ADD_UA_MICRO Performed By: #### 1 [id number], [id number], [id number] #### [facility] (DEFAULT) [address] [place] [address] 66288 UA Bilirubin Negative Normal [facility] Comment on above: Performed By: #### 1 [id number], [id number], [id number] #### [facility] (DEFAULT) [address] [place] [address] 04680 UA Blood TRACE Abnormal NEGATIVE [facility] Comment on above: Performed By: #### 1 [id number], [id number], [id number] #### [facility] (DEFAULT) [address] [place] [address] 81008 UA Clarity SL CLOUDY Abnormal CLEAR [facility] Comment on above: Performed By: #### 1 [id number], [id number], [id number] #### [facility] (DEFAULT) [address] [place] [address] 87033 UA Leuk Est Negative Normal NEGATIVE [facility] Comment on above: Performed By: #### 1 [id number], [id number], [id number] #### [facility] (DEFAULT) [address] [place] [address] 74102 UA Nitrite Negative Normal NEGATIVE [facility] Comment on above: Performed By: #### 1 [id number], [id number], [id number] #### [facility] (DEFAULT) [address] [place] [address] 55962 UA pH 6.0 Normal 5-8 [facility] Comment on above: Performed By: #### 1 [id number], [id number], [id number] #### [facility] (DEFAULT) [address] [place] [address] 41212 UA Protein Negative Normal NEGATIVE [facility] Comment on above: Performed By: #### 1 [id number], [id number], [id number] #### [facility] (DEFAULT) [address] [place] [address] 26973 UA Spec Grav 1.020 Normal 1.001-1.035 [facility] Comment on above: Performed By: #### 1 [id number], [id number], [id number] #### [facility] (DEFAULT) [address] [place] [address] 82362 UA Urobilinogen 0.2 mg/dL Normal 0.2-1.0 [facility] Comment on above: Performed By: #### 1 [id number], [id number], [id number] #### [facility] (DEFAULT) [address] [place] [address] 82777 Urine Source Clean Catch Normal [facility] Comment on above: Performed By: #### 1 [id number], [id number], [id number] #### [facility] (DEFAULT) [address] [place] [address] 22897 Coding Summaryon 07-17-2024 Coding Summary HTMLBase 64 GkrfgxzuXCq0zLk+PGh lYWQ+TA1NZZXdL40goV IsaS5nA3TVSJrIVjmsN YOVRGbLEjJmloYcSV6e aXNjZXJu IC8+TK1hNXEwSnruaII ur2S7eRI8V24gii2cTW bmxXN4BBZsBiLmgwfdp 1wdmKp7ZDkhBmwpVdBl IMVsmR72POA8yR24Vh2 8uCHbdVTuj5wfaYn5Wh FwWAEgWPB3eQluEOfvd 8TtMIGgV22suSWjt5I6 IGNvbGxhcHNlOyBlbXB 6lB3bCKlgiqaeu9dakd mlVpi3ul19fOHiw5X5v BK2X3YpcbU9BCEpkGOm LbfjtZHAxQ5gvnggd2k bozljOxDyGVBdZVa0PH e0VFVpkAkwByCmOB53E TY3ZARzbvEfJ2SePHNf bFshNqU7p0S0Jg1XP7Q ATrweL9POSMSCRLkcsK Q+JP72hq12R9XfFanaA to9NSFmBWD3wMY2cY9x HPHvGMuqa4I7sZJ2X3Q kumYatq6ui1duDRBgPK pyQ54eiQTsj5B5DQVft ZS3FVAwbFlrWlRsiY66 Oyc+JUBaiRutc5StFbo ne4fzz9wlfYo9BtuyGN EqmzAfzIssZJK0b2UgH t7aZWKguUM9bSX3sG2j BxLiGjK7OIyhY732IjY vvDKiElwtG35nB8AfqM A+DMApKre5VPPgyWcmV F2cL8WjPZWeqnzirHCi mKyaWX2oWJRcyskyFEA pbH3gBTWbH6l5DvYwKd U1BNrwK5ZlXCOnmozzE k17jG1sUrScYhX7JNnu R0DekgY7CLMayFStCNg hOKL1E84cn4J3DPByMR YrLLV4yHJ5eO7xcUpdr jogbGVmdDsgdmVydGlj YIfuYPkyJ359HCFmnHj nPkNvZGluZyBEYXRlOi AgMDkvMTMvMjAyNDwvd GQ+MFUvCQK2zBoiWTLm fUEoDZwvVu2itWoudTd wLA5iALTfrlzwHSJepH 4uXCWviHFzgRoqOR5hT YZokuteh302ObSoPRE2 SGGwbNJrI0OeeT7qBbF hZDTrAFDrK3UddUGqEW gdX858LWrcBkG1TQEdo qLcC3IpCJAkwDxbYqJ3 p4Y5Lg1Bh4ChleumR0J csZHtCwQfMfptOBn2I3 RkPjwvdHI+XL59JFPtS F91KAe9WAI9bKtcWGjr DWJaF5BgcA0nKjDfHOA kZGRkOyc+PHRhYmxlIH dpZHRoPScxMDAlJyBzd ZntPX6uXl1pMDIbMVPu fHiegAPuSeKta7hzDWN lVSgxJY9luFvlS3HedX T6BQDeq1e1Bl99G80hG 3JvdXA+TNKqaWM1qPY1 pV7qAvHvCcW8UYbhU54 3UxXzgZEkPvnvk9qdy4 utgKv5IkG0FKXkyhJqq DguVWI7g5PtPs24V80k IHdpZHRoPSIxNSUiIHZ mfIphmp0keL1jTm9+PG IztXQ5cAZ5wL5wQxMbY gN9YJxzO596AlLaaVTu Lulhh7jyf5rwtMq9DsD pGHTacnGzhWqgZCP6n7 HiLg50K4OxrGxgz8SyC sf0vg32yTJhz9L3gXS5 O0EcVASsdmsbgUOvbHe rLA3rXURfulmbGULuiJ 5gYTBfR0f1QaOtQyX2C UueR3NvifM1VBKgiXHn FGAnzNKPyT6hmoglk3q vvtnlFzSxJTDaKQs1QG x4NMBbgWnnQjKwCWZ8M gZ9RNO9yORzxQ0tpLyd bengjG0oUqi+SMP6qDD xuXLBLP8aVilvbTS+PH RnPXO3hSppNUrsPFGkj Z9sPWPxY9x4WuYyPoV4 QHneN8LoubC9RCAmcLJ yLCSpuHFUtE0ubehje1 vobwkgXpRwIGBjDGj7B Xw9RENwhWgcZhZlDXV9 RcJ4EJU7kQPxvQ7ekXm allmhcH4uEph+QmlydG puNID7IMm8U1NlVim1Y JIslQdqYM9ouUHbKYok Ak4loBynwRphUZ7yOWI kyjgql023HqZpo2hhBV KgeSZgTThzZXX5F74ox 4V4YKBnCFTyHBK1zPH5 cI3ddLnsoexqbDJruJr gdmVydGljYWwtYWxpZ2 60CVWshCszFfVhIOg3C 8KbQal0XBPngLfxEZ8u mJPaZXgrAd2ejEdteNf jIX4tZECveoity120Cp Qnh6skWGOplHYfKHpcB GO3L61pq4W0VLUeNUQw LJG2qNK0bO5lvLfusko gbGVmdDsgdmVydGljYW ruZNgoY842RMLxyJcsZ iNhmJx6G4ZoDkj7PXOv yNqoXA7ljWIiISihKg7 ysRywrOyhAK7sXHXndl tzj464BwSow0iuGSYqh VPyPCwjLGD9I71yw9B3 WQTrLGInUED5fYK0kN6 hbGlnbjogbGVmdDsgdm KxkHfzTTjfRJjtQ451V HRvcDsnPlBhdGllbnQg LKprETu6N0SgXniunWT +KT25JRZrMR70sGUikC Vlq9ggfSl5ScEnBNPnF DR4gKauAFvzm7HbXOOt S40zwEJmy7O9KLOqfRc vvKWtXuFoqPW9nK0jCU oylaifi5ztaccjAdono 6jiod11jJ59S27cEPee ZHRoPSIzMCUiIHZhbGl ixs7onM5yBf8+PGNvbC Z6sGF8pL9tGGQcXwT1J SydA336RgImmPBmFixp n1ogr1kpjVo1BlU9PHV vtjNwuEwaMCM3g1QyCa 93G70xBPhnEBKgTFPeV TYmZQHkwLqlkj6lpI9w Ii8+LIKtxUR3bOO7mC8 kZuNrZzL9GNfeM746Ho AojZUoDozxA38xR8Knz XA+PMLqWvw2MZLutCle QK4nwXNvOBfiAp3yGPW 9HzXpWuZvQJixG4FqQC OdjewfrnaagMA2DVYsG BNhcX03Uy4mlTioSDRb wCIMtX6ucgotr0bsdrc gKbPxTRIdDVe0ADj0RR EkqNozNpQoYPQ3TiX2Y TJ5jNCypO7ifElgbvdg nH4bX8KoLOKdrlosXd7 6dA3lBeSvHtC2QLyxKq c+GP7OFtARS0xuSTyYP H3zGBpwsTV+PHRkIHN0 tOnxTLycLNIdtW7wWIM uY9u4GcAjOcQ5IAzrF1 VvAPCctgrzKj66mR4aQ uVgQcP3VNpdL4VhqsN4 BMHweBRfIVbzLWF3U42 ib9I4LVXhNENwDSH1tP Y6mU5juQnrqonysZQqa DsgdmVydGljYWwtYWxp J286SAMidHbtAbSiSbV 5NeQ6Ric5V3BpZen7PQ JnuWbeNZ9szQYtEYvlX s3kgJdzdWfuNU3gHHAd tpywVUYkmV8kEJQebRS elZnxUF3pZQFdaruax1 79NeUzIGH2EUTqiPUmF 8IgrW0lRhSqCYRzRIYq E7DetOFrCRflV782RQj zGkW4FUShkqQkH5YwQF MmxVcdRgH9v9O6Is45S SBZZWFyczwvdGQ+PHRk RNE4tQnfXOudWPJmxB7 wCRFeW4x2ZnLlFyT9WI okM1YjTQDtmzkwXl37v N4oDqKhTdH9QLnsJ5Im wpF5ZCZrdXSbFCruIHI 4B25zi8R3RJEyBGZpSK P9hBK6eA1kiHvmobero GVmdDsgdmVydGljYWwt AOljF405DCZirRnaUwM FTUFMRTwvdGQ+PHRkIH S6wHpkYThpYHHljT1iW ZKeZ1r7LgHnXqD7YRqm Z4ZfAFNtyzaeRx06qA4 jKdMiBiS4IWfbQ2Qcuk D7REDxnYJlKNovLKJ7S 21vu4T1DGRtNNAaSZD1 nAN1dM3xfTqtjywltFC mdDsgdmVydGljYWwtYW flR314SMWlhWynLx3QJ O55RX83Q3GyGblnfVBv bGU+PHRhYmxlIHdpZHR oPScxMDAlJyBzdHlsZT 7zPt3fACZxBADdxHtdy BFzNaTsk4msVPHgAVnx FI9jbSdnK9SsqNZ7WOM qe7m8Gr04B76wW8JuiN A+CLWdvOP2mEA6oF2pW jFkAkC2GWqnP966JtRy cHHwBvfhm6hwx5pvoMa 9IjMwJSIgdmFsaWduPS M3j5DcVe66U71rGJugF HRoPSIyMCUiIHZhbGln az3hdA5nAe4+PGNvbCB 6rDM1qJ7nMqRyJwI0PQ gfV212MfPopZFaDrwmQ 68iB0KtcTL+PHRyPjx0 UAWjiSnxFB6zjUUxGHx hVs7nVGW8NmUrBrCfGK tkX9AgTUMxrkwayhpuz SG3JSXuILUmwV27Og4m cUdgAs7kWTMpXBE2FXN xbXOpL1XjcK1sUvMkZL YcFFFtK5WfxIDiKEdvQ 914HIunDyH1PPGtwnEq T9FaMAOpbEubBjX1x6Q 2Gj3DvZiuhWIvYC9fXl FyEKh4V0FgOsr9TMLlg HecYN6ciHUlWDmyKq5m bLfhhNciVG5rIXNyhxg hz289DlSze1koFFTmgE VdGNfiSRX9B41zh2O6Y AXbBRQwDDS3gJQ2pU3i bGlnbjogbGVmdDsgdmV owPbiYOndSSrqQ369GX EhiYtePaWWDum7F0WjS lx5MLVesCteGO4qnEWq ZObsUe1eiNclvDlsZP0 pLFYvbisan773YhKzs2 kqBVBbrOZqDAmaUTV3P 83ud9M4CJTpIELwIFT5 jRS7yY0ooUkdhccelCU mdDsgdmVydGljYWwtYW ybL750OYJfiYljAb7CB yw3Y3TuSjj9XNOalAed IP3hgCDoMOqbLt5lfRn jfCkqIG9eQTBalnomh8 67EfFxo0bpKMBglJAbA YekHJV6J62af0C5YFBb SZIsFTR5rAW1uM1hnRr nbjogbGVmdDsgdmVydG riHBwzABfaA447CCWge DsnPlBheWVyOjwvdGQ+ EZ95bx56S5WvAmmxQzh 2DDTtOSE7nTG4bA2vVW ShJNeuo6B1uWK8V7Ley gPwmr3vo9obPZYoQCoa Y29 (more content not included)... Normal [facility] COMPREHENSIVE METABOLIC PANE Des 07-09-2024 Albumin [Mass/Vol] 4.0 g/dL Normal 3.2-5.3 [facility] Comment on above: Performed By: #### 3 024-7, 3016-3, CMP #### [facility] ([id number]) [address], [address] [place] [address] ALP [Catalytic activity/Vol] 46 U/L Normal 39-130 [facility] Comment on above: Performed By: #### 3 024-7, 3016-3, CMP #### [facility] ([id number]) [address], [address] [place] [address] ALT [Catalytic activity/Vol] 20 U/L Normal 0-31 [facility] Comment on above: Performed By: #### 3 024-7, 3016-3, CMP #### [facility] ([id number]) [address], [address] [place] [address] Anion gap [Moles/Vol] 10 mmol/L Normal 5-15 [facility] Comment on above: Performed By: #### 3 024-7, 3016-3, CMP #### [facility] ([id number]) [address], [address] [place] [address] AST [Catalytic activity/Vol] 28 U/L Normal 0-41 [facility] Comment on above: Performed By: #### 3 024-7, 3016-3, CMP #### [facility] ([id number]) [address], [address] [place] [address] Bilirubin [Mass/Vol] 1.3 mg/dL High 0.3-1.2 [facility] Comment on above: Performed By: #### 3 024-7, 3016-3, CMP #### [facility] ([id number]) [address], [address] [place] [address] Calcium [Mass/Vol] 9.3 mg/dL Normal 8.5-10.5 [facility] Comment on above: Performed By: #### 3 024-7, 6-3, CMP #### [facility] ([id number]) [address], [address] [place] [address] Chloride [Moles/Vol] 105 mmol/L Normal 98-109 [facility] Comment on above: Performed By: #### 3 024-7, 3015-3, CMP #### [facility] ([id number]) [address], [address] [place] [address] CO2 [Moles/Vol] 27 mmol/L Normal 22-32 [facility] Comment on above: Performed By: #### 3 024-7, 3015-3, CMP #### [facility] ([id number]) [address], [facility] [address] [place] [address] Creatinine [Mass/Vol] 1.21 mg/dL High 0.40-1.00 [facility] Comment on above: Result Comment: METH OD TRACEABLE TO IDMS STANDARD Performed By: #### 3 024-7, 6-3, CMP #### [facility] ([id number]) [address], [address] [place] [address] GFR/1.73 sq M.predicted among non-blacks MDRD (S/P/Bld) [Vol rate/Area] 44 mL/min/{1.73_m2} Low >59 [facility] Comment on above: Result Comment: Reported eGFR is based on the CKD-EPI 2020 equation that does not use a race coefficient. Performed By: #### 3 024-7, 3016-3, CMP #### [facility] ([id number]) [address], [address] [place] [address] Glucose [Mass/Vol] 154 mg/dL High 65-99 [facility] Comment on above: Performed By: #### 3 024-7, 3016-3, CMP #### [facility] ([id number]) [address], [address] [place] [address] Potassium [Moles/Vol] 4.3 mmol/L Normal 3.5-5.0 [facility] Comment on above: Performed By: #### 3 024-7, 3016-3, CMP #### [facility] ([id number]) [address], [address] [place] [address] Protein [Mass/Vol] 6.9 g/dL Normal 6.0-8.0 [facility] Comment on above: Performed By: #### 3 024-7, 3016-3, CMP #### [facility] ([id number]) [address], [address] [place] [address] Sodium [Moles/Vol] 142 mmol/L Normal 134-146 [facility] Comment on above: Performed By: #### 3 024-7, 3016-3, CMP #### [facility] ([id number]) [address], [address] [place] [address] Urea nitrogen [Mass/Vol] 30 mg/dL High 5-27 [facility] Comment on above: Performed By: #### 3 024-7, 3016-3, CMP #### [facility] ([id number]) [address], [address] [place] [address] Comprehensive metabolic pane des 07-09-2024 Albumin [Mass/Vol] 4.0 g/dL 3.2 - 5.3 g/dL [facility] ALP [Catalytic activity/Vol] 46 U/L 39 - 130 U/L [facility] ALT No additional P-5'-P [Catalytic activity/Vol] 20 U/L 0 - 31 U/L [facility] Anion gap [Moles/Vol] 10 mmol/L 5 - 15 mmol/L [facility] AST [Catalytic activity/Vol] 28 U/L 0 - 41 U/L [facility] Bilirubin [Mass/Vol] 1.3 mg/dL High 0.3 - 1 .2 mg/dL [facility] Calcium [Mass/Vol] 9.3 mg/dL 8.5 - 10. 5 mg/dL [facility] Chloride [Moles/Vol] 105 mmol/L 98 - 10 9 mmol/L [facility] CO2 [Moles/Vol] 27 mmol/L 22 - 32 mmol/L [facility] Creatinine [Mass/Vol] 1.21 mg/dL High 0.40 - 1.00 mg/dL [facility] Comment on above: METHOD TRACEABLE TO [facility] STANDARD eGFR (CKD-EPI)non-race dependent 44 Low - PINF [facility] Comment on above: Reported eGFR is based on the CKD-EPI 2020 equation that does not use a race coefficient. Glucose [Mass/Vol] 154 mg/dL High 65 - 99 mg/dL [facility] Interpretation and review of laboratory results Abnormal [facility] Potassium [Moles/Vol] 4.3 mmol/L 3.5 - 5.0 mmol/L [facility] Protein [Mass/Vol] 6.9 g/dL 6.0 - 8.0 g/dL [facility] Sodium [Moles/Vol] 142 mmol/L 134 - 146 mmol/L [facility] Urea nitrogen [Mass/Vol] 30 mg/dL High 5 - 27 mg/dL [facility] FREE T4on 07-09-2024 Free T4 [Mass/Vol] 1.03 ng/dL Normal 0.61-1.60 [facility] Comment on above: Performed By: #### 3 024-7, 3016-3, CMP #### [facility] ([id number]) [address] [place] [address] Free T4 [Mass/Vol]on 024 [facility] T4, freeon 07-09-2024 Free T4 [Mass/Vol] 1.03 ng/dL 0.61 - 1. 60 ng/dL [facility] TSHon 07-09-2024 TSH Qn 3.10 m[IU]/L [facility] TSH Qnon 07-09-2024 [facility] TSH 3.10 uIU/mL Normal 0.49-4.67 [facility] Comment on above: Performed By: #### 3 024-7, 3016-3, CMP #### [facility] ([id number]) [address] [place] [address], [address] [place] [address] Coding Summaryon 07-08-2024 Coding Summary HTMLBase 64 AtpspiwcDJv8gPh+PGh lYWQ+WC4LEPCfS60kpJ ApuJ7aU7FFAOzKVbauR LNPILbETgZlnoDgWN6o aXNjZXJu IC8+XD6rKVPqLwsptNT gc4Z7eBP4M01qjw5bUC cfuQO2GWNlQzTkmprjd 8ernIm7ENfxDekxKjFb WLHvwK21JGC9tV69Df7 8sJDhnAIgf4gptWy0Xy AcOBEpXKQ1kPfwZLsfl 0TgCODwK14htVTqu4G3 IGNvbGxhcHNlOyBlbXB 3xM1tPIbsnrrrg8ogbr trHnr4al79yMNum1A2u OD8Y6UjbhJ9ZTSnmKWv BbtclZAVsE4wbvzwy4x vhhefMjTcZXMiUAz4QM m7WIZkiYycTrBtUX56I SR2BGOpslRnY5KuJEZt mRzjBoT0p0V9Mk5XC4Z RAnizC7NCNAVKYFaqgR Q+OW91sz46N5ScZkojU pr6YKWiHPI4aCY3oX0r QNEuDSnjt3E1rIB9Q5P qwgGvfe9dq0lzWGSnRP tcM77zzIYwc4C1BSDet FT1SBCduCqwLgZhtZ02 Oyc+YTNttPxek4IxXwe ip2cjh2bvqMn0UsxpSA VgluRdzRqjCUG7o7MaG s5bCYBcbCU8oNF7tF2c QgOfEmR9LJbyW559VyP icKMgJqpgP15yS7LzoK A+EFSdVqc5NGZtbFsfW V5yQ7NsEPCooclhiMNf xKweFN1mPIYitcssJBW uuG3xDVWvN4z5YuAcYq W4KJqkR7VqEQBlzfxuU l45eP8oUzXbCbF0WRml B7VlplD3XLGkpVCyMDw vLEM7K40lm5K0SSXoPA VkAOV4qTV2eP5laCcvm jogbGVmdDsgdmVydGlj SFpgLGvgO459JNUfxMa nPkNvZGluZyBEYXRlOi AgMDkvMDQvMjAyNDwvd GQ+GXTzZCV7uBzvVUEe wQZqDHzsRa4yzNhwbSv aRX6bMNGuispsSQVnqK 6xTVDikOOfwHwyZE3rN HEvzrdky788KlLyYOA7 KHGvhICbN0IgsR1dMkZ aAKYoYLOsX5OjtNIuQW teG521TFvtVcX0DQZpl wXoN5GbZWDxtGheQhB2 n9K8Bg9Dr4XxrdbcT7E ytKKaGmVhEtclJOe5W6 RkPjwvdHI+VQ92VJCjW N00SZb4WAE2rOwkCLub GHAjZ5SfkG9dZhWoJDS kZGRkOyc+PHRhYmxlIH dpZHRoPScxMDAlJyBzd JqeDT5rRz5gOIJnGLNf sEgrsZIkVzEfr7ziFNA mSBqrBE5gxKjnV3OqpP U6KYUed2c0Gx21Z82iN 3JvdXA+RBZznVB0fOH1 hR8bMfMnYiL1ULowO94 7IjXinVVrJknfa3rvq8 ocvQd5HlE5GJTuftUij XnvGCZ7t7KtWp72P87i IHdpZHRoPSIxNSUiIHZ beWumat3qqC7iBo4+PG XqwDF8wQB7jP9kOoKtQ wG7KPskA536VjZyjBUy Zsubd5hic3cwkCz5IaM nBEXrxpUduZynDCS0n8 VjXp77G0JieNlcj3AzI nc3ds39lHAcq5L5uVV6 L6ZhWEUdjrrqhWQhrCg lCB9hAFYiyvrdUOEcbK 8hYYBwP0q5MjYgWhJ2O ZroH2AqxuQ5JXNeuPLx VZIyjLDVkW8hbklpx0u ryouwFuOgOEJgCZe9FD p7RDYjhPdcUgZbTHL2F bT3YYA6oDLqxK3emSkk gtgzcL9vUff+FUM4tWU pwIZPEL3xMbzapUQ+PH FyRIC2uGxcYSrmNUMnc O0zGIZcE4b2YgMtTsN7 JLchO6NycpQ2JDOtbQB rXHVrkADSkR7kqdire5 ubfbxmOxSrSJDdVUy8P Yr3KGXkiRqhMoHxWUO7 HqU8XLR6eZIyaY5bpXb fqcprbX0fIap+QmlydG ygOXS1OIh2V6ZxTrq9Y SLmoOysIE2ztHOmIVlk Ng3ovQhktTzlWG5wVOL ibwwjz473VfSjr1fzKI ZidZMkJAlxENB2C06vu 0W8UKCaKFDoDWC1nQW9 oO1fuGnqogaicHCckHe gdmVydGljYWwtYWxpZ2 15VMTzgDzoTeRlRMo6J 6UpDlu2XYUuxDsiIX9i uTMtXLkxGq2xwFmxkBi sLC9uCWDszbqsw461Ci Puq2gwKUGsfBVjJEtiT SV3G68sl0N2UANkKJTz ZZJ6yGW5yZ7qdGcvggm gbGVmdDsgdmVydGljYW lbRFnyP186PRUcoSncM qSouPl9U7VpXqi0OIRu dUxdFE8ewJBaZAzqQz9 hhJqavBcaZR7zNVKdlr juj739ErVtz1ziUWIhs PKjOImbUDD2Z42ej9J2 CRFjBXImWEI1yAL4nT4 hbGlnbjogbGVmdDsgdm XtcXksLWbhXSvbP191L HRvcDsnPlBhdGllbnQg QYzuGCj1D2UiJtrqkDG +SZ06YYDxGM60qSFxaW Xqf7dluLh1OsCtBXYfP UW5oNtwANdug3HfZZKf G08iwCUtq8P7RMSgyUr gqYGuExDkrIT2jG4iIG pugsles8xzymxdYmvnm 1phba42xH83N79cBPjm ZHRoPSIzMCUiIHZhbGl npd3wrG6gXf8+PGNvbC E2uHE7rB0fONUyKiQ1Z QyvM747ZmLixHUoPmeu y9zdp4gneGi8IoI3UIP aceKsyMeeMNJ9p4EkGz 38B96hDBiqGQTwKQZpP UPiGYVzlGwjwy0oqZ2z Ii8+LHGmmAR7xPN6oJ8 mKpJsJhP7TWsxA176Dy KwwCUdZylmO06tE5Tmr XA+EAPdMln7EOApgZgw VZ1gvJHhDTdmAm3kSIT 3QoBdMmXdZCydV5QgXD RsnxojyecnoQM9XHCuA VMxmL30Ra5jpGiuGLDd jSZZbP8qkfvqa7mahzl uJuIjMEPnULr9MIi5EA AqkQctZtQzOBS4QlE5C RK9xTBlnN1fmKyjjhbp pN8zV6VaTBAmpwnkQy5 4mK7gCuXqGvL7KBtfRw c+LZ8XVhSWT4kjJFkGS S8gYYvihGK+PHRkIHN0 cGuzEOeqPMYuuS6gLQU kG2z7NwCrKcH5OPjnC0 DmEMEjpsoiIm73lI9lJ zCvHvZ3JBavH7PcluL4 JIGtkWFaFSadZYV2P74 rp5Y4RRRnYJQtIVC9lQ M1fU1ryRrthdgqlZSmn DsgdmVydGljYWwtYWxp F472IKIcrNwoXpVrHgD 5ZnB7Zrs6U8GpIjv2EK QhsJjvTA8eoSZdIOwbG v4wtFcbkDkiDI1cPNQv yaqpJHOyjC6jWVDysXO adUtoWY5yUUYadxmsj9 92AaCmUGR8QKIgrZBjD 7BawT0cZzYhEEUdIIDl D7YtgDPjNNetB210NIj hJgL0MPWgccEwV5CbPV KllZrqUoP9v3U8Ix72T SBZZWFyczwvdGQ+PHRk RNI5tOcqZRapUFOosA3 nSATgX1i9WoOlNzY1XP zqS3UhJPIsjrblLi79s F1xHoEjUeH1TZweB1Cn rlW7MQZzhLJoJSibAME 7M25lu3R9SLIcBDWuRU Y9sHO5nX9vkIbzjipci GVmdDsgdmVydGljYWwt DUpnM159BPNctSiyUkX FTUFMRTwvdGQ+PHRkIH Q5dLvwVCioJFYpsE0gB DNeQ0g7LvZvDqD9JRth P2AaOIVibjwwYu00tP9 wTvJbOpG3PPwbT6Kedk C5EQIbgBRcTUzdXGJ0W 51os0R5GRGoQPBmUNL3 fSS2wB7nkLposhmycPU mdDsgdmVydGljYWwtYW qoE080UBGkzSvpRe0CP K11JF03E7GmDgcjoLYp bGU+PHRhYmxlIHdpZHR oPScxMDAlJyBzdHlsZT 0jFt1sMGCcOZXyuBavw NEqCaWqq2irDRUyUPod MY2kmSlsI6XhmFJ7KCI fl2e8Bb10Y79gC3YlzU A+FTAimMO2dOE7sI1gH yQvSeY6IAfhI972EoSa rQOxHagjk9xeb4elpMy 9IjMwJSIgdmFsaWduPS F4b1NwRh02B54tOSpeJ HRoPSIyMCUiIHZhbGln cl5tzZ5bEr1+PGNvbCB 1bUD4gC4jQkSlFuE5UH tjI111PvKahUUhAksgZ 50yS2OnvCU+PHRyPjx0 XJUorKpoBO8ktVFeNGw bLr7aSPW6PmQuXuGhLV amW4SkOQFsveuktdckt MK8RYMjDWDxdL93Ru1a nSjtDv7aBVZqYVV3HNU vcVNjP9JqaO9pOqUvEL WoGQSuD9HcjACuFRffK 560ZVayIzR2HPTlyiTx A0AeRPHonBdtRuR4j6R 6Pl0IkBlbhAPgKB3gMk AdHAk3V6JsUii1CCEdv WzeYS9ubHLlPGbbKi7e cTwyrKgfRW3lZOGyfsn vn785TpSrq0dtDBFzoO AcEOyvTMG7D52ga0X6X XNvOMMuYCD9uIY4rK8f bGlnbjogbGVmdDsgdmV pcBbpJPriZAfgZ587ZO YqyBdjWiYVFde5Z3KkY nc9TFBgtBceRP4vmBJr GKvmCi3tcBlkdIniZD0 cPIVdturyc259CuKqi9 ftIHXqbGGdXBrsBBU6J 96mw5W6NIPmYHOxGQV3 fKF2iG7qlYazmgwbsBZ mdDsgdmVydGljYWwtYW mxA413JUOilOaeLa3TT hp7Z4OoQjm0IQYkfUdk AY0vaQNdJVfdFr9kzNh scKvaVM7cTPIaevwey6 75JqFjc9nnYGYmxYFsP FffYOD4U67dx6V2UTKn CYYnRIW4nQJ7cW4cbWa nbjogbGVmdDsgdmVydG ojMBzrRNmfO734ZUEgv DsnPlBheWVyOjwvdGQ+ AY23yn17G9EyNvmvQbi 6UCBqSSY4lOA6zB1rXE HgOPwbe5Z4oMQ8P6Hia jDvkq5uw5ixSBGgSBge Y29 (more content not included)... [facility] Wound Care Noteon 06-29-2024 Wound Care Note [id number] [facility] Coding Summaryon 06-25-2024 Coding Summary HTMLBase 64 HggxowucQRz3dTc+PGh lYWQ+PO7FYFYfS68vgR CewD5hK8NCCYvTWzdmB HMLJFtTJfLwbeJzSV4a aXNjZXJu IC8+JA4eALByDwzclCK mn6E1xJY8V44eub8lQO kikFU6NYVrApSfgfpyy 5irrKu4NHwiAdfzXkDz PZNstE17OTI6hR46Aj7 8cMLqgOEgg6ldgVm3Fg ClWYDiOAC6tJagWAten 6ElMJZzL26qzWNcx2I9 IGNvbGxhcHNlOyBlbXB 6kX2vPIzarpdoo2dzdp glFhu4hh20oJMdf3C1p SE9M2OkalY8FPIjnXSn UaobnKTFeI7jmkqtl8x acqmgGmWkKDMkHWf6UL v6FBLnkTwpVtFmEB03V JQ7ADWzxgCqT7CzUOQd sMgjOiY5o0E8Oc7RJ6I GCkojN0PZGCFRNIpmiW Q+PY57tc23F0LcDuocF pn8WBRbZHI0eVK3vN0u WEDmLXnnj6H1nZY2W6J mmdLlvq5yl7yxEBQsTQ ulW50zbGKbc5I1ZITsw YA9SWNzbUymNrLptR91 Oyc+UKIwmTbig9EhEez vo5xsw3djnDv1JfthJV SqmrZetOznBBA7a4VeB a6cPJPvyOQ5cVK9hN3i LbCsRcZ2RRnyP482RnX nhCJyGtxeB00lV1OcpC A+KFPdLok7ZKCycMkeX L6oI0VfZRTjdrpkwMCh pTbuDI7bIKSmifdoNQO phT3aDABoG8k8KxYeQq S1IDivZ2BtTRGnyjzgC k45sF4kVdOoZzE1KAhd C3FotjI3DVAryUKhMPg aDNZ7Q39yz3X0PGUjYX EsWRL0cCX5bY1oiKpwq jogbGVmdDsgdmVydGlj MOosQViwG910UDOxnYu nPkNvZGluZyBEYXRlOi AgMDgvMjIvMjAyNDwvd GQ+CXHaMGR6fSeiIXQs gQVlBMayCv7pmUlfaXj bEE6xLDHdmdikZYYvnE 2tMLLsxPTwiHnoHM0gZ FDtltsix123FdHwVNX7 SLQozGMjY5RmvF2zYmD hHSYyIKMfT7MpqTUgMR fmQ644EXcvIkO1WMDij mTmO0EuJUNcnCsuGwA5 v6I4In5Sy8BskzizA3G prNSqNlVnFxnfJIy0I9 RkPjwvdHI+JB22IAIjP A38VCg8KWQ4qGsdAJia VAYbS0ZiyD8xSbWiBIE kZGRkOyc+PHRhYmxlIH dpZHRoPScxMDAlJyBzd DxqOS8lWi7pYPFbXDGg zSdjaVVbKqStp5sxCZT rCCpkPL1jnOjwB7JsjC O3ZVRog3b9Cd71P43dE 3JvdXA+FQChiYA8uTR5 gD5xRpOpJiT8BUckF83 8EtFmoJYmFooay7zoe8 iwrIz2ZaD0LICmvtNmv BhsDAQ3m2TaAe07S52f IHdpZHRoPSIxNSUiIHZ kqCexxk5ioK7zNm2+PG IovST2aSG1yL9hJvBiA uD5QYwhY607CaLelSVq Acctt2lwf7kxpRu8GzK nBZJahhEsyLdhTVC7w4 ItNv02Z4PwzCazh3YqE fk9bp34zPHzw5O4mJS4 J0UiBLFwfwxfoYBmxCo pVP6vZHQmhwqzIOLduJ 0gQQVjC3u4NhQjNkX2Y DzuI6NlguJ3JSHbvFBq QELtqUTRrO0ymohzy5g eztqzQiHzRWJvHDd0SP u3YOFdzJsnLiNyUVE3X fF0PFU7pDDrzS6mlUuf dspwrT1bGxu+HBW0zQF seGQGUG4jQorxtVV+PH BxHEC3zLdrNXdjMIJjt Q0pOALjZ7d3MoPoNvF5 OCmoI5YougN2NIEwrCC cGDEhgXZXfZ3rqyqsv9 fwqfmwHlXnSSHiZPw0J Gt8MSCcvCcoRwIdKNY0 JfH4ZKW9dNPwzA2gsWg fpcgkfA7pBlj+QmlydG ejJDA3DNx6P8UaEdm2Q OIfpKgkYV1xvHReUUja Bo3duTayoUjiLD8kQQC hqycuo502UhTeb7ncSC AkyAHjAEksQWW2S15ci 8R1DZLiRDUiZTU0rHT4 cP4keBzfmkdowQCkdDf gdmVydGljYWwtYWxpZ2 86VYCqwSssNeSfRGz5Q 3BcYsi9DKKtbDyoXX5v tTXoMInmDk0oaMcpbXp cRO9sXMObomtfh270Jm Vee9oxLGZhsCLrQRtoU IZ6J32te8C8FODdPKMc EHR7nEA5nI5ftVbizez gbGVmdDsgdmVydGljYW xpKZsmI519VPNglSafW hQyiCx4R9CpKpn7CORn fRzzEC1tsUCcZVmbUb3 vkXfzbUzuEN2qSJIpkc ovt740EuWpe8qrUCQwb OWyUAwoSTH6Z35ya4Y2 GJIbHYNgKNB4zZQ4gI3 hbGlnbjogbGVmdDsgdm OuvEvjRGupFLyfU466T HRvcDsnPlBhdGllbnQg TXrxNCw3E4MoDvivhGK +ZR96JGHwZM89xWOipJ Nha5haaVg9LqZzZRQxW WD7nMplQAnus2HhMZCo S64ruTSzv8Y4ODGveGo cgLMcLaCyzPU6uL6wIL rqvcpgy6ovdgaeBlrdm 8gfhb53pU97S14cYThv ZHRoPSIzMCUiIHZhbGl ade5iaS6bYg7+PGNvbC Z4kTW3uM5jFKZmIyY6C ZbjM495EaOneMYdBjym k2ufg6tewAh4VaN9SDI sffOxqWqxKFR3z0DsNt 26N27sRPuwOLOxJETlQ EJdQKOgcJpdzx9elQ5p Ii8+ZOZesEE4cJW7dD1 sRnIbUnR7QFpyF824Ve NxvGWpXdwvN58oY4Sil XA+BVRzGdq2FSUzsGfm UG7pxKQfQVygCt5nFTH 0OqRtHyNuSRqvE8ArCR IzblkeprnpdXG6IWQzT HHdjM67Da6boNumZWVe gDWFzJ3vcudca8qjslp gDnTyCJRzNWj1AZs0GL HnxEqjEaGpQBR1OeO5O MT4nDCdeN8duYhdhsse jT5pD4IiFCCxhzwaSj3 8wC7kQiSaOuV4NGosId c+OZ9HHpSLO1ijSOqBN Q8rYIlpjCM+PHRkIHN0 vRfnNSxjRQChtM8jBDD sX2c4YyNmEoX2RHtqO3 HdZTQhqtcwTx19oC8yI wAtIuL5REziH6VxbeL5 IYZgiOEbFRnsLHT0A16 aq0Q2ZRGrXQMaVDJ8eI A1kF5adRmzvhsdySEiq DsgdmVydGljYWwtYWxp P767WUUmuCbcTtAuJsL 5AnF2Yhj4Q7JlMbx5KV AanKxkNB7tvABuBOcaL e1abIltoZpeTE4gAPMb zavxSLZtfU5pKDLalFJ syYbgRS4iMIWtvgaar7 69ItUiMCY4SQZhyFLhJ 7WuzI0fDlNwUEZdCEEv B2WucWWjAGqmN410WDb kVtR0SQDlykCnP1GhQD AipAkqJzZ9s1Y8Gd98U SBZZWFyczwvdGQ+PHRk QCU0cIffGBahBVQgrU6 sFVDwH7p3AzZdMcW6TG inM2CbGGGruxdqQc27r R2lGiPcBhD3CUxxU1Ca ieZ9ZOMfxLDzDHwkIFP 2S86ry4C8SPRmIXTuVK Y7zFZ1oM7zcZrfituzl GVmdDsgdmVydGljYWwt GDgiH180JVVnjEhjUbS FTUFMRTwvdGQ+PHRkIH O7jMgnIYesCCOlvY9iX RYqZ6n6AhWhWkI5ZTrq O5EwKQWamebmHa53uR6 bCzZiSdC3BPjnS6Gihw I3KJDnmOWfFYjyXII3V 99ne2I4MUPvKGPjJEP2 qYJ3qH4wbFmfjjcpcBC mdDsgdmVydGljYWwtYW ygN634RJMjjZkqGz8US B28YU14P2WeGwgwiFXf bGU+PHRhYmxlIHdpZHR oPScxMDAlJyBzdHlsZT 3eOk4cOAMpJRLsvHzeo KVbXkOgf7kbYJAhTUcj XG6vnBbrX2UfqOU3KWA cr6l9Pd28C39xJ1YavN A+MYRtwWE4oZM3lE7bK xEvRiM1XLicP404WkHr mXAqVybfa1xbx5uouYn 9IjMwJSIgdmFsaWduPS Q2x5HhEi90A15fCObdU HRoPSIyMCUiIHZhbGln ht4mzS6jNt7+PGNvbCB 5aYL3nZ3lRpHbWlC3DZ ddF704LhIwuNXhRcndH 91nW9GizLR+PHRyPjx0 UFVwlRqwFW9wsJTqTTe iLa0gQOK7HgNtTzHvET eqR7ZyVKHksnaxirwza XH9KGSdHUNsvJ49Qr7s cGqmLl9wYRGcSUN0ELH ehYQrK2TebM4vYkGqGW XqGLEjO9WfwQHmDIkgO 128YPmgSyF0RUPouxFh J7LsOYMycFmfJsO3z6G 2Km5LuPklfCTfLF5qYk CeHSs8K5IjKoy0TRMku JsuDS6tqTFyHIcxGh1n oSltoSwqMW6jNCPblnk ox351XiBqv0nqEXRkgV HfLWglKKB4V96om0E9A RKjZWLjMAX2yBZ9oX8m bGlnbjogbGVmdDsgdmV ppAknJZduGRvlF188DH LrtBboBvYAUrr4M3NvQ iq4NDUoaIblGP1bjMIg ZWfzQc0fpAquuHyvRO0 cALDaclciw850GqVxx1 amRIFovXFwRLmhHPZ7R 22yl9I5HPNqRSFpBID2 aES2vO9peRxpmrbhdBI mdDsgdmVydGljYWwtYW cqD102QJNzgDqzXt4YZ kp7Z7QbOvq2GEAnpNva BF2daEJkEBxmTz5mvSk xmJnsFS0qXHTtmvcvd6 88ZhNen6eiSWGcgFPjA YemJGV9J51aq1E1FBQx TLIxTVQ2aNP6xN4seNn nbjogbGVmdDsgdmVydG acGTunYNdqK313TMVke DsnPlBheWVyOjwvdGQ+ ED61dg56M8YiNnrnCcw 6FQXvZSR0cLH0cY9eHO BzFDmzq3K0pEF8W7Ylb jMmpm6ge7fgSPVsALdu Y29 (more content not included)... [facility] Coding Summaryon 06-16-2024 Coding Summary HTMLBase 64 EjmtwxhkEMw6kEq+PGh lYWQ+ZC7EAVZkI97olP PidC7jQ2XLPErMBsftP LWKHSoYSqGmxtWiCK0l aXNjZXJu IC8+VC8uZTNyVyiyxAW qx0X8tWE0P32ayt2bZD lfoQV6XKHoQgArpelzu 6zruDk0TIrsSctwGpKi ABTyqP78QDT7eF35Mk9 2hSFusOOrk8euiZm5Gh PfJSEiEBL6xWudXMxyu 4YmBMGmC15xuVOhu7L8 IGNvbGxhcHNlOyBlbXB 8uZ3lQVdigeqze2hqht prWka9ix72fRTrr5N7w FH9U5ArtfV0FMRrsGLm JmuxwBMEwV6qcqiop1w niffpQjOrGTZqHPh1XC t6GFXwdCavVqAhXE44O LA3FGSuwwTmS1FoOBPs aJbsDyY1x6M2Ye9YW0B TNqfjX1AMCKHCRIyfvG Q+RW74ts70J7ToBlpyP tz9APVlFTI2xRD3gW5r MAOlNYote9O6bZJ6N7Y lbmLsbj9hk7dhGAAyIH heH13ojLTys7T5HWOzf SH1QQEuwAqdWsVvqI74 Oyc+HVCwaWsja2CwAfe tm0ssc4jykGy8MektCT QqtiNliJarWWR5m7ZdI n8fKNDjkAM0dXC8wM7t SfPtNqO0TFdcV581IzF ioDHzSzawF79dS7IdhL A+ZUMsJvm0QWQzgUktM S9kN9RvDDKlmfwavVQs yUnjBC0tUOHuciaeLEL kmS2tCFQiM0x4QxDjXb Y1QQitT8WkESOjqwwvC y52sD1zPgKkLdG8ZQkm O0StxcO8CLZrcHUdDWg jRDR2R56kb1V4KFIsMH NqPLQ7kMI1fN9mcOehi jogbGVmdDsgdmVydGlj JAqkBTmzI797NZXxlOw nPkNvZGluZyBEYXRlOi AgMDgvMTMvMjAyNDwvd GQ+CECiEEC2xLpiKMPk gRGfRNehBf1ylUqfhNp kEA6aICRtqyxbTOHurT 2jMAGukZBxiXebDL4iU FYgbubvy679PbSrIJF3 CENbiOFfL0DvrQ8vWpK yKFQtGAQlJ7OkqRSoHP cnG304VXhaNyW9PTDoj pVaE1XkBLYiqOzhMyF7 n5L8Ge9Hi3VugpspJ0A hlSYoXaCjZbrnCMa3H3 RkPjwvdHI+IA38BTHdK E64NNn0PKD4bZdfBTce VOAtA0ZvlZ6iZlGzYYQ kZGRkOyc+PHRhYmxlIH dpZHRoPScxMDAlJyBzd UeyEW4nBx6hZZSpDUFy fTnwkVMfGqAdd1dbSUN lEMyxCF8keQnvW1VcrR Y9WZNmf8a8Va34T79gA 3JvdXA+MVUzjGQ9sMC3 wM1lYzSsRgX5XKqqI90 0KbJyhMXoPqztd9pkb9 zhjEq4EjE8ARBfvoGaz QdpJFB4a0LmNf59L90p IHdpZHRoPSIxNSUiIHZ ygYqsdg1tbP7wSg1+PG StjET9eVY3oV5dMrMkG gE4BLrjE308DhXnfVQf Isgxo2dtc9tdqYc8TbM sWYLlaoPueRlzICU1c2 DmNq39O0MkuXitz0ZdJ el9mj61iXClb6M4qDH7 Q9EnGJYjjzanzBLjsMv yVO9dKSWdwixsWRYtvF 8wZAZcQ9c6BnNqBqM2J OerU6HgfsG7QXDwjERc ZFFdqZXUiS8mqghtu8j amyokQlLcJBApLGd6NY p1ITKqpYxvQaJhSWN0Y mZ9HAE7bNKkpT9ydCmk yukxqO3iVsw+KBP2eEN kyOXCPG0cCxunkEG+PH DwCNT3wGzkPQqvKDEfy V1fYIHeO6k6GrRbYkN8 RJlyC0HcgnJ6UZOaoMZ qTZDfzUEKbB6rembgj3 jigcpxWwLaLUClAZv9M Nn6MAQwuUmvQsWaIRF3 ObY8NGD5yVGqiQ6jsWp opjlfiL5bBej+QmlydG izXRY1WLz3S1LoOci2Z LYgvYvcVV6diRVgARnh Az7udRuylKhvFU0bGZU fiobqf702YuVze6heQR EerKIoVSxcPDX1Q64wg 2T6WKZzPQOhJPQ2kQY8 jG0ahGtokcilwKWrsZa gdmVydGljYWwtYWxpZ2 93GPZshBkqLpPiSKy1Q 9FbFka6GPSbtUmwED6u zRKsIMfhCo2hmRrzuRf nSQ3kJEQwkrzqv787Bg Pli0xnATQucAUfTBxdL WM9R72kv6J9QSHkLLUr PDA0wDK7bL2vrOhvnmd gbGVmdDsgdmVydGljYW pqNKcqN088IFDdnHsrJ eXoeJk8P4CdFfi2XYOy sUnbRQ9tsBPfUDrtOg5 czNsstDveAI6bCWRhzz wve395ZzYoj2bmLAJuk JFjZZiwQPD3Z34bq7Y2 OYLmGXUdFSU2lQN3sH2 hbGlnbjogbGVmdDsgdm ObmHkpXIgfQWfeB558X HRvcDsnPlBhdGllbnQg NPfgIRg9V4WsTdfxlJF +AZ66FVKcAO23tFTjeY Cco6jgmUh4AzRtEWMoI CF9lVfiFDysm5XdCOQc S12lgGOmt2M6BSYxsEs kjBWnLsPapKF4qA3tJR wmbjtwo1mqwmboFyuoi 1iazu12zO36U09lDOmj ZHRoPSIzMCUiIHZhbGl vxa0meU8lJi7+PGNvbC U1fBP6gL8eBCZfWlP4U YonA751YyJhrPNcHbgq p4ogw8hrfFq4UvF1JTH tglBwjIovIEC6c8RjXj 71O07uUYltYIIpDVXvG UCkLAYjiKcqyl9wmB1m Ii8+FCIoaXL2tAB9aB2 zAxNmLrH0FYunU672Pn FuxNVdMeduT46hQ8Nvi XA+PMPgLvc9UPSdbGgi FA2cfHUiVXfwVn0xAKQ 3FjYgZrMtXTlgC8AgBP ZsrgkxbzghgIN3NMGhY OIsyP85We0uzWsjPUDl yOXMeQ2ivhyto6tmanj kWnJcUHNhDYg9WIh2AV XboJxtNvGrXRH1CuN9H GU9sRRwfX9ptZhebowz hG8nD5BrBIFoyyoxMb3 1zF6wClQoXgU0ASerTo c+DH4XGqTQM3bmWSgTN I5mRWkhuKN+PHRkIHN0 lOqcLYziCNJjvM4gRIQ lK7p8NkOiZjI0LXukF7 UgESEykpqbZn34pP9fC uWzDnH3GZlzQ7WiclD3 SXRpcIUfRBihJZQ3F03 ot1L4MYIhQCNkWQD1eN L1dJ0zgCvodpzrmNXyw DsgdmVydGljYWwtYWxp O794JYWlbMfoPdGnXrM 2ZkD8Zsu2I7BhSbp4GZ CdiHvtJB5ycVVpHAveV f4gbEdwcJmkWK5dMCYt snyvGILhuL2pWLOdfZF cvKotPS6wELUnhhkea3 34GeEgZGV5XSMeqISkZ 1BsmN0aJdKhUSLiAHZg U8NyaPCwQXdxT582NKk lHgD0EGWibxDyF2StBN NbsIslWhT5d0O5Mo10V SBZZWFyczwvdGQ+PHRk MQH2pRrfMYseFTSdsP0 nTVFaO3t0NvYgHsJ2OU jeY5DxQTTgonffDl42k A0dJzKaFeW2RDofK5Kd ieS5IMYzjHMtJUvuJMN 2C39hw3E5YISvSOUvKD L3qHS6wH7twWvfzrixy GVmdDsgdmVydGljYWwt VXutK312PZOxqFddVgP FTUFMRTwvdGQ+PHRkIH M1pMuhNJgnHNCjiA0gC VTxH0b7SnEqAwC1WSaf V7YkPGEqavrvJs25zJ1 hWcOgYbD7VUteG1Rjzp I6KUPicGSdKJqxSXU4R 76tk6K4ODKpUSXyLIC0 zXF2bZ7tqUxjhqteaHV mdDsgdmVydGljYWwtYW ygR888WIJogMmeCj0BO H66BF40M4LqFtlgsFSv bGU+PHRhYmxlIHdpZHR oPScxMDAlJyBzdHlsZT 0iWm2iCYIdZJAgqAuzv CYyLxXkz7oaFWKxDNhw JL3mvDgbV4QzmPX4AHY ww8s0Rp15P60fF8FwyC A+AKMdeAB5kYR9xN1xT bVzQlE9XQitA789DdEy mMSrKeaju9zkt6whbLh 9IjMwJSIgdmFsaWduPS X6x4AfRm77F24bZOiwW HRoPSIyMCUiIHZhbGln kc4ukH7rQx5+PGNvbCB 2mPV8eG8gFgKnZgX9AQ xjF183YhLayGXaBfbvE 62xZ0IkfYF+PHRyPjx0 XROcrFzrGI7xaGZfYIb qFa6zYIZ5XiQqMhRwVM wpW9JpOAAigsacptexz PD3UOChVDZlqZ52Tl7a aCgtKg3qSKYxVNO2RPG wfMOlM5VysI4dZfMkZR YeGRSnA3ZmaYBoHOhwS 680NJpyHhR0QHKphoDb O7FmALZgbUvsNjD5y5I 6Tt2WsShlpELaTD8wIz RgMBf0U5UoXbg3SQXgt TjoSM6mjUMfDAjyWz4n dPhpcMjnEC3lWMVsjch hn607LoDhd5xrWKRiaI RlSKkgSEI4O96lz3Y4A FAzHBVeTXV3cZC2wM1s bGlnbjogbGVmdDsgdmV tgKfjVUbfQYkvV193HG IgdXfhTjMZYuu7D4OfL hs6UXKwfDppHZ9axNGh QAwnAc2nsRbczVrzKN1 iFSPmmpmpn868VqUao8 esTVOplIMhMHssUVN5N 55ot6E9JLXoCPMqOPO6 yJG0oR0lyDticsdbgRG mdDsgdmVydGljYWwtYW bdJ593MJEqjHtdVg0ZA mj3Q6IoTsa3ETAohXug VV9szVUsVScvVj5hnUi yjZerTR8tKDLupozme1 21XpGko5akMPIssPCsZ RnnITY2U01it5I0JTKc EDRpQMF3qKI4mH9nlKo nbjogbGVmdDsgdmVydG byVHtyVLrhR632EOBbv DsnPlBheWVyOjwvdGQ+ KO56sj04P7LuJgtwTet 3XBKhOKG2lDC6lY2xBP UbHPycf1L5yIJ8T5Xjq rSyvk3ou3fcCYVpMPan Y29 (more content not included)... [facility] Wound Care Noteon 06-15-2024 Wound Care Note [id number] [email or web address] Coding Summary HTMLBase 64 QhxygwcoGOy9pRi+PGh lYWQ+HY9UZLRcR83uoC VwkB8vQ9BZLGnWKroqC ESHCKaUHwNyxmBfOQ3k aXNjZXJu IC8+RX2iCIPuFaoanZW de0K4mCC6U65zpp9vJD aowXU7ZQPgUmNufedch 7vxdUf5ILghRvnzIiMe ZXBlcW05OAT4iS44Rb4 1iCCnwCTdr0heoMk2Vo KgVRAhFMC6vOsoRVyug 3EvOLUeK62awGNic3K6 IGNvbGxhcHNlOyBlbXB 8gY5tLUzinrvcx1ofrh llWtc2yj05fJTau6W3j UZ0W4ZcruG7ZIKguVNj IrhruGKWtB9ygwtlf8r koerpLrMbOAIzXXq5YT i0LMBlmLooSpMpVR06U MB9QYQdmiVbI9WnGWNg jHbcTyJ1y8I1Wp5VR5Y JDvgcP1EYGCNCFNtzxB Q+RF26ig78Y8JdSdvrC ob3XLPiZDL9tAS0fJ2p GOLvQNtnh8P7dUI5U2V hntDcgf5vg3uoKLSsDC psO56vnTMiw4P5DMAlz EO4XMHkgArgCtSwmW46 Oyc+ADSpoWxtv4UfPpo sz7woc1ekbRh1LnopPF ZjfiNvdGmrIYM7x5TlH q0jBYKzmAF7yYM4pC4t WuUmWwQ2OMqkO591YbS flXUbOpriP99rN9YaaF A+DMLpSzi3LJAqpGcyI Z4zJ7McGEIwfhkmhGGa uAbnZP5lMCJlobuuCJX szG3tLEDvJ4l9TyOoXe C4BMheG2IzEQElpbjfY y22fM9dHoIaIxM9PHen X3MvfaD3UDEzjONaPWk pJKJ0D61lx0T0RYYbSJ PtYNP9aGA6tT6szBgye jogbGVmdDsgdmVydGlj POplSMqdY371BUVuvEv nPkNvZGluZyBEYXRlOi AgMDgvMDkvMjAyNDwvd GQ+KPDcMYY7zGvkNFMu eAUxQVzxEv7ghTdveGj kIE8eJTGkilcfZAYoiL 8tEPFlpYSjgTalFN0xK HLdjfcjo821AnUsJWK7 JOFrpWRrJ5GsnW8tNdB mGNLtONLvY6XfwTCaDD hnA018JDstPtK7EXAtg aIvH4IhVIQxfIrzQrD6 y0G5Ny1Rr6RvaezrF6V rkGRsWmNvMtbbMMy8S9 RkPjwvdHI+KA81HUWvR V70WRu9QWI4rUeqTQdt NCOhB5BobH4vTtVqAIG kZGRkOyc+PHRhYmxlIH dpZHRoPScxMDAlJyBzd LscCR4lXh3qCCTxQXDi uHdytVUhScMcx6eyJIT gJDpqKX2uxCdsE1JyyR P1BVPsj7m5Qc53Z50hX 3JvdXA+UGLsuUK5yDU7 bP3oFuZfSaL3YMffP81 3GzTfbJIwXrgdp4shp2 thwEl9RxE3PVFquoBlz XuoTCY3i2BzGb71H91j IHdpZHRoPSIxNSUiIHZ ytAbjji5msI2lKl8+PG QtkNS2fQG9xS1xXwAyK vF2XTpqW639QhYgiWCg Jajun0kqz6hqdAf2OlJ hEIQipwDclJfeOPI5i0 JqWj74N6ZrdMwve7AgX vf5cf30lJBzu0B5lPE4 N8DtCRAkewhbyHIcpZk fKQ7eSNTpebudWWJikS 3kMCEuV2d4UbYfJuF4U UbbH7OlxwO5BONwjOAq IARiuUMJvH3jdyury3g pxpsiSqJbYECkQSh6SA p5KXWjcJfdEcVuPSO2D uR2RFB7pPWfvK7frKoo tmnwcC4sOic+KTW4mQR yjUKZIB2sKhzdwDN+PH DqSCI3dEonZPatRENxp M8kWPCrH3c3XjIlQcV6 SVioA8IkehH5LBKoyIB uIPEodTYRrE8jsyqlt0 bsihyzWzPcYHFyNWe8N Xv7AETtyLmcVcEkTWJ2 UyZ0FMO2wWLilK5xkEe euxfotV8lBmb+QmlydG orQKB5JRv5T8PqOot6G EKmiWefAG6pvXWeWYaf Fn6kdJyzaXpiZD0pAXD kyqocf992PlKhz0ajVZ JbcHCgEVyhSOA9D38lx 3Q9VVIgNYNrGYS0jTV2 oT6vwUjlwyvubGYvzZk gdmVydGljYWwtYWxpZ2 90OVQgsQfkSyRbEBw5H 5MiLsn9NFIntTuvBJ7f oMUkHCjnLg5lmNpwmVz zWI6qTJLqegikt897Ad Dzm9hyDPHffEZtLLehL IB0D75hz6A1RPYwHLIk KFZ3kDL5qZ1boLzmgua gbGVmdDsgdmVydGljYW zoPDmzZ179RHYkkZqnJ iLrnOz9B5XuBxd9PSQq yOonTG8tzZGiSGzqAo9 eqNjqlBmwLF5mTBVnik wid150DkNhf7cbQPSja PCdPXnsQUS3O87yb1E5 MLIhMEBtCZS9iCE0rT1 hbGlnbjogbGVmdDsgdm MwaMwxCPvjVJibS664O HRvcDsnPlBhdGllbnQg IKtxJNl9V6BnHpqdoRP +DZ80LSBiBB11kQAevY Bcq3vbcSz5HlOwJZJeC HD6kKipEYkvw3MqVOMk Z15nqPOpb7I2QCNifMs kyAUgWiCwqRR5fJ2eOM dwrkxpv7vjwcznBpimn 1xmvv68yJ62G07bBWyb ZHRoPSIzMCUiIHZhbGl ekt7jwN9lJt4+PGNvbC L7iLW4tD4dLFBqVxU4A NipP493MtGfsGVyBxwa h0soj8fovSd9UxK7NWE mlrZugFacSPM4o7QsWp 62Y32wOSxtBFNnZVAhA YNrKIVcpIbasv4rjV8h Ii8+FXZbdEV5yNK2pF3 mSvWpMcC8ITvgG739Mt KqmWGoCdjfS20aG8Wcn XA+CJMhObb9FYSocKih KA4sqWGeFBtgSg3jKQN 0GlIwMxJlCZntJ1MzXK UxtufwhpncqIS6RABcY BHpaE55Od5okLdaPAMt vMFRiL4pdnpfa6gvhly kQfByYHTdNIk2SYs3BQ AuzUkvBuOeTNB3UmD4A CN4gBSpbM5anCqrzhra bR1iC4YdJPBqwmruZd5 9wO8lWiQcViM4ENfkVm c+MH7FRoAUO5dsLIsVQ V5eSOgenYO+PHRkIHN0 qMkxYYiiGVPkbM7tVTP sA9s6OhXiJrR4HIksF1 EaTXTkzvnwFv40vY2iX qYhAtQ1HTdcT1AszwR5 WFEdrFIcCLcwEOQ3J36 iu4K0BANeCPFdWMF0sF X9wY0zmWfjoouicCXuo DsgdmVydGljYWwtYWxp J549EDMnaJkpWiQsYtD 0DyV2Mgv9O9HcIst4SQ DckNlgIJ3aiDKzFPfrT c3wrPfoxOxeVU3pQCXp xgtjCQDkcW8fVITpeQK pkJvsUJ6yGXLrecrvt8 14KqNoZWY1PLBheQIxF 8UykN4wVdDnETFdEAIt R2RcjYCuUZodB192OTi bNrA1FIOjwnOqE0KoGY LhiRbaRjJ5a3V8Gv18B SBZZWFyczwvdGQ+PHRk FUH3jNytTLarCKXraQ3 aLSJpC3o2CsRnTuL2ZG waN5OyPKUmfypdNf92o I3mSwApGbO8OLmaB6Al hpV4ISAstOMyLNcrFDF 5R50ry1L6OYRaTDSjVO W6uIH9rJ3iaQhmwkvve GVmdDsgdmVydGljYWwt ULdqU498BJDhpEubAqI FTUFMRTwvdGQ+PHRkIH X2mNzlQBeqVWJxwW2eB TEcI4h2NfBcQyV2IGih M7UgJGWmcoroMh75bF7 hKlPmZsZ0NOdgA8Bqyo G7FUWhvRQoYCeaRLP8V 33kh4T9XASqEJAmHOI3 xUT5yU5jyAunsgmizMO mdDsgdmVydGljYWwtYW xyI498FKEzsCumYl3UD M56ZG23D9SpMaaizLWz bGU+PHRhYmxlIHdpZHR oPScxMDAlJyBzdHlsZT 4iTp2nUBCfDSNyuXiwa GPaYoSmw7rtQEMgFBhw HK3hdKxwV5AhbTW4RCP eo4r2Bq58A66oJ4OfiY A+VJRpzVV6hTI9uJ4nO rQfYjU1WCqlG471MxYe pPHpGbxph9fpu6snoUl 9IjMwJSIgdmFsaWduPS R6s5CtIr84Q56sFRapF HRoPSIyMCUiIHZhbGln bn3etV9oXs3+PGNvbCB 4qCK2lR9kRdSlHqH7CQ xzP398GaNkfPLjGikzZ 07fW3GyyQU+PHRyPjx0 HFVxjNhvZU4oaMDcIKh rBy7uNGT0FpMyXhPbOF rrL0JvBGDtxisaikupj TV3VBUoZYFvnE34Px8i zGpbPu2wNBUhMYT3PQY ckCJxR8OgeG0qNfZxZV VvRPRzV2DcmZGuSOcbH 861EJojDnN1UCHwtvFw D3QrQYUrvXkjRaD9o9P 3Rm1WsRbraOOgZB1gMe YbNDf1C6KeHfn8RYTok ZccSO2wgRSuIDtvNh5x xYfdqKeqJR4gJRQgahr xu369BgAes2qmDIWupA NyNTzvCOX6Q15qj7K5Z AUqASCsJHT9qED7oX5v bGlnbjogbGVmdDsgdmV kwVnbPUvqWQcnJ459BG LczBjeJgMTNon7L7PyC eh9MFOppBqcSB6zrBGh ZEboGu8sdYsfvZrpLK8 fWQDbhtnyh666WiUam8 ypYGRbmPAaKRseZYK2C 34no4N9URBwNPYdRHH8 aPU9jW4mjExmmvkkkYS mdDsgdmVydGljYWwtYW reX115BIYbrGhjLm8GM wv1L5EcOeo3MJIdqNsk RZ4mxLZyMPjwVr8leXo onOfpZE4rKQCktkshh4 57WbWrg7lkXLTsoAVoO ZkiFAB3J96jd0P5OQRy KFJgHLN5cKA3rJ2xwFs nbjogbGVmdDsgdmVydG lvYQegJQtjW129AJCmz DsnPlBheWVyOjwvdGQ+ PA74rb98R1VqEpumZkn 4UZAdJID3lUN4fD8zYY IaNWgag2T0cBX8F4Gip yEerk4sf1bmLENfDTex Y29 (more content not included)... [facility] Consent Formson 06-08-2024 Consent Forms [id number] [facility] [id number] [facility] 06-04-2024 Coding Summary HTMLBase 64 ApsoczlgWPa6cIb+PGh lYWQ+AF8YPMHoP21cdO XmyV2uK0WCYMyXJpqbY SXZAIxONrJjslDiZI7u aXNjZXJu IC8+GB9dZIOfZkjhgWH tr9Q5iWP2U85umg2eNI hdiPL0FDLbHuKuvqqum 8vanDb5SWdmLimyCtCv ZTXpxX08FEP6mM70Xc5 8rJWuiRCca8yblWo7Ix EtFGXmMJP2nVchWRylq 5KkTXJwL12fvWHzq8S2 IGNvbGxhcHNlOyBlbXB 6vY5oUNjlxbedf8ainn iqDpq4zn20bOFsl4W9g DB1F7QqwjB4AAHahFAv FkygyUAIhA2ttxrmb2b gjjmzOqNfTDJwVQu7OQ d0WWQmjOaiTkZqBA52R HD0PWOkveYtY2FeDGMp qIjmZzI9y7R0Bc5IC3X EIhwxP5RUKNKNYIpocJ Q+HD84sy91D1XaCycyX oe1EIPjCTK8yOY1rY0n WBZtPJntk1A3tXB7J5P sniKirc8gc9pgBFMjEQ rsT10okSUzu3D0DDEvp TC8WHNjiFqgMvPekW08 Oyc+MWLoiSmly2SjZgs un9lbb2osvYb7RtjaBS KnrwYzyDarIUR5y1LsL s1iADHmiDH5uHY2iJ2u AwQhGsC8ODxmB608JgK hnEAyZvmuQ72oD5QroN A+UPLmZjg6JZEklYqaO A2vK1FxGBUwqgvljMHj nFgeEL8lSABwpvmqTGK ghB3wJBSgA3l9DnCsQg L0SVkiJ1QrSRAfvwkpG m71mH0lNaXvUrK2ZXze J4GwzbA6FXWgyPYlTEw iXSM3B69vf6K5UHRwXR AgWOM1dKP8sO0rqBdax jogbGVmdDsgdmVydGlj JXtdRHbwM402TLEekAa nPkNvZGluZyBEYXRlOi AgMDgvMDEvMjAyNDwvd GQ+HVNfTHV0eRfwRRAq hHEvUGlgKe1cuDymnEh tYU2wYHTgpzlgWJNmrW 6jIXEneAIzbHspXS5oB BRjuduxe096GvMwSDU8 OZSczPOuB6EepP1iRqM nLTGqUKSsD8IbfGFeBT eeS674DLjhUoQ3MHVyq dKxN4YlXPNihXnrVzA1 o1G9Gj2Qy1FmybtfK2T yhNXiMgAnTbgzANg4H8 RkPjwvdHI+ST97VGGhY K02RTk7ZBB6bNnoPGpo UUUjJ9IgjU1oJlRwGHO kZGRkOyc+PHRhYmxlIH dpZHRoPScxMDAlJyBzd DqbSO8eFk9bQMJpAIFn lUbtrTHxRiYiz5npTRC mBQlqPM3oxXywU2LedH N2VEHsc2d5At69T02fO 3JvdXA+VCDaiGA2nVC0 yY5nGeLsLtE5DIwaT37 2PeSugAYsHknpd3bgj6 qktGi3LaU9YRYhelIve HyiTKF5r4DmDx48Z61a IHdpZHRoPSIxNSUiIHZ grQtlaq3vbP6iMk7+PG XxjWT0nNC4hQ2zTfCiE rO7TPqaM896MmWseOEb Iksrp5tfl6jbjTo4SlT fAEIawlQftUpoRMB0l5 ZjMp98T0QlkHlpk7CnN ls5um11lQRyq5E5pPQ0 E1PaQZYxwvwxtSYrlAy nSW8tXTRkgtivVLMpzS 7sTTUpI4d7VqXzLvJ4T BetB6OrifO0EDIoiEFp ABUstFQCwM8nptrkl7s jlkfbIsMuDGCkJSf0YQ r8KXPgcBkhSnWzLAD8Q bD5OXL5fOJjkE8ucUjz woucqT6qJci+IPU9iHS utPDYNR9lZluphTZ+PH PsZAH8kOlxNYujJXOso F6mQHAjT7s0NkXiRlP8 SVoeB4WzoyU2SAYkoBV nTLAkwFAVgL1jcpgfp8 mwabzkXvQsAIZbJXg0K Yg6PZVfjKfgIdKlUNI2 WrR7PWO9cYDxuZ5krGm qzwvdnT4oYhk+QmlydG ejYAH1UUd6K6GnUms4E VBgjVqbVM0mhGXtDKjs Ip4gvOhuuZpyEP1xQYN kydvbw940ScRvf1wlRP KwxSIoOYevZMC4S73vm 5H8UWMgYFOvIDY8rHR8 gE0ktMyyiqjwnEBqwSr gdmVydGljYWwtYWxpZ2 10ONEpeRjiChYkNCl9S 3GwWxn7FCUvkPptPO6j bCEsYSgnLc6meIagdEo gOQ1oYLPgnvrbz482Fb Zjo6mzQDXtwXAgNIxoI NE6L93un7H3MHFeDJUx KSP1jMZ3vW5bdYzlnke gbGVmdDsgdmVydGljYW hhETwmH438VHKjoNonP bGomMv4R3DfBqy8NLXu jScwXP0qqETdCXfbXk5 zeYaezTuoMC6qMBQhoq juz009VbOyg0onLTTly KRvCCsrXSJ8O75ks9T4 NLFwAMHjCNQ8aHX6fN5 hbGlnbjogbGVmdDsgdm QgxMawTUziPSzyN601A HRvcDsnPlBhdGllbnQg CGteOLd0M8UlAvcywXO +RB78XXTpEW42rJJhmG Zhs0apdWd9HsLjWEQbC LF4fEjqQKvbh4BpDXNf G71qdIAnn8K4TKPsnHe kmJJsZzJbjJF5yD7eQZ lvinmyd1mqdhkbIddny 0kpcc46sX54L35kHIam ZHRoPSIzMCUiIHZhbGl zvs2vfA9aYw6+PGNvbC B2yCL1yW3jORGhOlE7F QvxZ293YeFvdXDtTpfp d2fcf0mtoOw0UjK4JHN kekOccTccMGF9o7DfJk 63J28iOIcsMYPaZZZeP HThEISddUxkym0hfU8v Ii8+XVNhiNV0bKA1kF8 pMoJsZmE7BHakG769Cg PldHPlXmjcA79nE4Oje XA+ODDfEpz5TKJvyYzx VQ0laDVbDPguFz2aEMB 0JtGnMlHpSBxzB9IuEZ TiqukxcaezvFD3ZVEyG SEnwS91Zq0rxFaiFITx fARTvK0qkgttc5aygyr bEqWmWBNfQVn7JDa0CJ EoeHbeVfWzVEP4JhA3Q JX7xRVoiZ0wwXfvhgko gZ5dJ3RjMNHjxhvsAj5 3nI2pRcNwJiP7YWuxPr c+BC7MWoLNU8dmFEwIN I9tQVgucFL+PHRkIHN0 pMblPPgkCVHbtL6sNNC gR7m3GmKwZzF0BUroJ6 RhPQVqkrsaSp99mO1oW rSkFyY4MIpxW5OuaiK1 XVJwfNUpLPcfOBA4Q48 rs1K0YOOxBRPzUTH4nF T3gN1tfMdykzbwkJAza DsgdmVydGljYWwtYWxp X566VSJljTwjXkNaNgL 2MzR1Qlh3M4JdAqb5ZO EzrKmbKU6cdKMwVZpxZ d2bhDjsuFdiVL5wAXLn cyucXDNbpO9dKQEyxTK ysRkjZG3nFWOvoyhao0 55VxOiGTR8WAHydFMmS 1IzeT1bGwBxFGRoUUNz M5MfcSRjDHifA983VQs nPdC1OQZggkCeG4FqIN KmlDzjOwA1b6Q5Um69I SBZZWFyczwvdGQ+PHRk OFI9nXppWIxfNZPftX8 xOGGzY6s3HfMfWaG6ZH nmR8KaTXXtemyvAj36j T1dNcHsLsP3RFwzM7Rp qaY4GGRmmWIlOXumLKZ 2N59px0U2ZRAoDRHfOH W2aNL5vH7kuUpwozhya GVmdDsgdmVydGljYWwt GChoA662GCLraXfvBiI FTUFMRTwvdGQ+PHRkIH B8qCyvGYzgSKPulT1xT NFvA2c8AbZiOqW4YTxj M2QuDYIezmfuDe02zY5 bKoHaNfB4FRtqF7Nalj Q3JQPikJQpNThgYXL9X 41mf2N1AZQiJOBfLBS3 oOZ1aA2yyYhlwibvjCW mdDsgdmVydGljYWwtYW czC397WAHldGxlQk9RS R05YT39S7VmPvoatVQp bGU+PHRhYmxlIHdpZHR oPScxMDAlJyBzdHlsZT 1tGj7oKIWsTVNjcJnhf FUpPoVka3rdHJLrKIno YK7aeBxvL9NcxZR5IFK km1n6Pr03L91iJ8FbrU A+RCZpsZI6vBS8hV6sE eDrOfX9RXwzR311ZkKt vPVjFbtat1wri6luuDp 9IjMwJSIgdmFsaWduPS M7h9FmYj90O14iWMmtE HRoPSIyMCUiIHZhbGln zu0owE3uDj7+PGNvbCB 5lEA8cC0fXhMvRnR3RT pqM963LkOmlKAiAfrhF 83vM5QduBC+PHRyPjx0 EVIhvPjjQH8ebLIxHNj hGd7yBYI0NpBgNcLtFT oqJ9KjUOMmuwycqnrgq VF5IWNuJIFkhQ25Qp6j eWcgPo3oMORdKKH2TEW nwFGuP6FvsN5lEiWcCD FhHQGtI0OfjHZkWBtyM 935DLebOdN0SUDyugDu D1PwTXYaxUzjEcY7w1U 6Et8ClGtckEYuMH8gIi EgGSx2U2LnIrr7WVImh YikTH2nzOSnDExcAx4j uUmppCjaCH2oYIVfacw vx296NtIqj4tgYORcsZ PsKUrjCXN2M31nk8K6U MYfFRZbOBW0wDO7rH1z bGlnbjogbGVmdDsgdmV dpMpwPPosHYtfG668TC VtpDybXvJNByx8E1WqB kx9NBLsrHqqAD3woXGe ITjoTg7hhNcjvDwrGZ8 kEENktoudx374CtIkf2 qsBRLvqQHwMWqrJTP2D 72ah3A4RFIuTTHqIPN8 kPW3fF9pfGzhbwdfkOD mdDsgdmVydGljYWwtYW xhE415DVJyhZlwWf9RD if6J9TfPyz5LVMrnCun YU8seVUzHZkcXj1xyTq fnLjlIU3aEUSirfmpo3 99TqCol5xeJXUflYGrA ShjPIP5I63pq7K1UOOj XBXqJXD1hOL3oA4zuFg nbjogbGVmdDsgdmVydG soSOowPCdkJ958YGQnn DsnPlBheWVyOjwvdGQ+ JY79ao04X3QvFkfaFdd 6WYXeQMX6vHC9fE7nGU VvSItjg6E2cGO1T6Zsq uKitp3ks5iwHNJvPSce Y29 (more content not included)... [facility] Coding Summaryon 06-02-2024 Coding Summary HTMLBase 64 NlfwskftSGw0sWz+PGh lYWQ+EQ1TFYAuZ37zaS QyrR6iJ1BLCSiKLqglA QTODYtCPzMdhcGsTJ4c aXNjZXJu IC8+NJ3jUQUgCbmspGY dm0A1jGM5I30vkf5kXJ wkpAU8FRNrUaPgtaecp 8dxdIb8MHuhXbafLfYq MLBpxQ23TJI8qR42Gg0 5lHSayWAnm4hsyHi8Rl JyBQFtXYR2gZvsRSugp 1XoSOWcF83ofPXni1F2 IGNvbGxhcHNlOyBlbXB 8sO5bSXyixtkda3svkc fdVvr8yp76eEVwg5A7l KA1T7ImmfB6LTMcgUOa FuzctPVFoZ5ujwnze6z yshtcEzTmIRGtDRr8ZQ x1BRTyhUyyDxWfDK71K PY5RDIwzsDpC6BbFKJk hXrgNdC7x2P7Zy7GG2M NWvvvL6LNPPBHLQnruO Q+BQ46eb44U3JlOkjkL li0QBTkOQL1fCU5fW9w NMRtCHrju6S4kCT3R6N sjkDxyt2vq4kqJXEmCF ukD61iuRSfh6E8REFam FS2GKEebMgeFpCgmX29 Oyc+ZFYirUvea1YgOjw ef0kzv4snlXz5TwjtNT NbwhFcuDhkYWO6k6RoW v6fIGGhzHG4sQM3jV4f GpYpTjW5HUwcN396MdQ xgNJxFvawD15pQ9KerW A+ZLXeSpy3CPXvyVaaT O5bF0GbDHHxhxmqqJHy xBpoZQ6nWVTvxtxgCFA hhS7sOTGmG8o3FlEpYy Y4KMbfE5HvESJifnyqM y84uH3wBhIiHgZ9OFsx Z1PacbL3ZWGliOZfYWb wEWQ8N16oh8V9EYGkUX JaDRF5qCO1zU3kpTews jogbGVmdDsgdmVydGlj HYmyTIppY327VFWxzRe nPkNvZGluZyBEYXRlOi AgMDcvMzAvMjAyNDwvd GQ+TIDuZWD4bRqyEJDc nVNzBTsuTy8evLitbJe yTX5lYORhzzvnMUYrnY 7wAROivUZvbTanWC5uH PUvtcwiz017JoHkESK9 QHTagFMmD9WboE4wLmD zETIqOTPxK0GleWYqIC sdP877CKugQuE9MLBqh pVsZ3RlIFHmhXsrKeB4 w2W0Gt5Ks6AbcainS5T urHFdSwTcIxhlVRv6R3 RkPjwvdHI+GQ50FQPqS M83UYq6NDQ7xDanGSuk ZXPcW2GujA5vNvIhSZP kZGRkOyc+PHRhYmxlIH dpZHRoPScxMDAlJyBzd YloKB1gKm1hONGdQPDi uQrxsHGuLbOzk2zjHAB pEGtoYV7egFnhF1KgvP B6PUElv3f2Gp37X97mR 3JvdXA+AEJqbYL5bQV1 bD3uVoIiXyJ9AYxhP17 8AzIorIQuIghhx0qbs2 mqkIi0OrP4QDMombDhk GvpSUU0s9BdHv49U32j IHdpZHRoPSIxNSUiIHZ fvKkdbq2nuO2iGl8+PG WriEJ3eQH2dV6bIiHoK wL8NMsfI837WkYgcJKk Pvhok4ufy8yuxDx2KrF eBVNpvlOvbXklDKO0l9 ZvUe55S6JbdCxbt1XzS sh4ri99eBJjt0A3dAU8 D2PdIWYuwbmdrPFpiKq iMR7qAQIxllutFQBsqF 1cZAOzL9j0YjTwIqQ3X WnmE9HmzhN4JNUetVOu OECquRQFcQ3asnapn4r ucyriGpTcFURpHHl3WJ j3ZGYhgNbeSaVqLKF8G yT4AOF6aKQlmA0fxUpd jqvubJ6rKyz+CPG5yTK waCLRGQ7bQyfkpSV+PH AtJOJ0vRdoYEssCCBcn A7aPNYmN9e5XkOgYsE0 YDvtO3FyfzW1AAXzlXH wBDTbiFSXhA9djqpdd8 aqctohQeMmZRFwLIq1H Nf7MRQycVgqIcYsGFB8 ZlX7QHY2mUAdmO6weAi tizvoeO7eCfq+QmlydG sqIXJ9JJr9F9VsEaa6C BFfyVxwZD0wnLZdVMrb Px8wpMiooZflYL3eQKO hrrumm179AcYyz5cvKY WraMHhXQlvJCQ9F23ks 3O6EVKiPIYtYXZ9gSF5 aD3hcOxukmlwbQFdjQo gdmVydGljYWwtYWxpZ2 17LBVvqErtBbTqTPs3A 2VkBck0ZOZciXlhDK7y tHNkJZteCk4crUbvcCk yJH6qDTTbovsaj611Zi Tdh3aaWWVooFCtSCksV LO4Q26sf5U9PEDjRWAl XPG8cYL2hM6ufGiebrl gbGVmdDsgdmVydGljYW jhXBilJ763YZBprOphW pXuyEl9D7JsXig3AJNy hMwpZI4ifETaHKiyWd8 chVaygAzgOW0zDFGkvt azp348HwVik7zvLREby SUnZEzsYAC0M80rc2H5 JJAnPEUaPAN1fKI9rM5 hbGlnbjogbGVmdDsgdm KwmWpuVCrcMJeyI284K HRvcDsnPlBhdGllbnQg QWjbPVz7D7MkUryxxMF +DW03CJOsLU71aKAjvQ Oce3zprYq9DsHkHBXhR IU4oAajJLbxj0XcGNCi X28amJOfd7X8NKOeqAm knVXyBtIxgUF4xJ2yFX tybgbxu4clvbvcEtrgd 9qhvr19gL35I37xVRei ZHRoPSIzMCUiIHZhbGl vly1diA4iYk0+PGNvbC C1pRZ9dM2jORYgDiG6H WbnP168GvNozCBeYeuy m7gti4tpoBs9ZrT4WGC odpCueBkdMTW9a0XmEf 69H73nDCpmTZHaOMVxT EHxMHJbzSkdat7iyV6k Ii8+SRUyrDC2tHT5tF7 xGrUtTxL8SHvzY056Jt HmyXBvJvlfZ18cA7Atg XA+JZPgMjo9ESSdoBxd BU8cpEJzGZsnEk8zXEX 3YeTmSwOsZOrsB3QbCF TbduabwojxuFC8SCXgZ EJvjQ04Uw7imVkaMDRw fTUQcK3vxdmks0lrskk fTvBzXKWeIKv4VTa0ML TzlZusSgYfUPV3ZgB5X PT9eCYdhX6mbKlwixcv fL8hE8PcZHNeggzeTw4 5sS1lWsDeKpQ0YPznJo c+VM7PYzGIZ3uoARaQN M7eGFbnrDB+PHRkIHN0 xVhkPAzlVYMbjA1nUAH kQ6j9PxInSkB0UKiaB0 ZfRRQyljhzZz75dG5eE cXxWvN4JAcyE5IqruO4 WKUrgHCgBXqsPZI0R29 ea0T8JIZdDLCmCUM4sE W1gP2aaLtbtzacdDErl DsgdmVydGljYWwtYWxp R422YTMirXevFxMiHeY 9ApP4Dtt8F8ZrKqt0PF AhzVziYK6bnBLdOFkaB u9crOggvVtxBJ3tFXQn iwowXPAumQ2rTYCddSD vrQyhLF5cRIEehrjzi7 90QkHtQJP0YWZlzHYwR 5UlnG9yClFrDHTgNFWw S9HtpDArQWtfN443JQq xWjL2QIFcakXwC5KfFU FafHsuUaD9f8N4Rw68A SBZZWFyczwvdGQ+PHRk EAZ9vFzwDOrvUNEmzK4 bZQPgO1k7TrLvNrL8YP uyR3PySLGhsmstTd78t D6jMnVdRgD6UYxqM0Xs kcA2KONosXOtSMczKSL 5Z85zs0G8HZWaELRvAF C1yWI9wA2qfEhukldup GVmdDsgdmVydGljYWwt IJkjP129GEOvrCabZjM FTUFMRTwvdGQ+PHRkIH Y9vPbqYJzbVALdwH7mG SHvO4n7IhSoEwZ4NAgi U1RqYHCewdnyNf86nQ9 eRjGkRmU4QZxiS1Pyem O1EFEbdUSqKJazWSR8Z 39it5E3BKFcLRAvTPT3 eON7wF4xhGwnprizuDD mdDsgdmVydGljYWwtYW ewD743BCLjxMllLr8UR N57DV33T0KmPsmjtWIt bGU+PHRhYmxlIHdpZHR oPScxMDAlJyBzdHlsZT 6uIj4bAAQlXRUvrKzvv DFlOfJjr7tlRHWbOEtx NS8sgUcyP3YrpGO8NOE zr8p9Cl90V68jK1AxzV A+EIKfdLS7sFZ8wF5pN uFhHiJ5OLllK535MdKq dQZbIefzz5kzs0npyGx 9IjMwJSIgdmFsaWduPS B1z7DvBr24G70rNKhtW HRoPSIyMCUiIHZhbGln ed4vgA6sSd0+PGNvbCB 3bUE9kO0gIrXeBeC0TS baN349RnUhcEFeHxbiS 56oE5AtgBO+PHRyPjx0 JBNntJflHR7wwOMpTNz pLr4cHWA0PpIgTwAfVY hmG7TgDHKixjvhnfyfl KW4SCQuFDAwjM10Tg8f pKicMs0eDFSxJPN2UDH gpEYzU2AqaF2zToGfNK RvCUEkN4HuhIDyXZzjB 472DSelQvR5WDDckoCf M2KbQAUdnZayMgY8n8Y 4Dm6TvHqllASbTJ5mNr MvVQj7D6SePhy0YCKfx YcoCI4yyBPjGTuyZf0z xOnzsLbjCL4iFXQrifg bj745OlJlg1syJNVfdI JwQYvpDHJ3T16wq9V9O TNtZTAjRAY6pPY2wH4n bGlnbjogbGVmdDsgdmV ljByvYDkgUXcyL643WH PgwKvhRwZDUxs1Y9FjU aw1HSKrrVrmUO2jjCTx MSetFh1ljUmyiGecJB4 cWIQyyildk052YaJht1 saSDWyeDGtGChbAIV8A 00pp6F5BLTzWBBoPSI1 uOY1vQ0lzCrgbetpfWI mdDsgdmVydGljYWwtYW ccX927WHVmxDuaCt1WH ey8L0UeVcx4AHAzqYxp RZ9eaEOnNZdhSb6qdId wfBdzPV0pGWKbkbjmk0 95XjCju6mjCXDiaPCuQ QreEOI6V45qh5Y0EWWm UREeZPV3iUE6gO4fiJf nbjogbGVmdDsgdmVydG mpOXmbZUmyM150QSUho DsnPlBheWVyOjwvdGQ+ GG95wf36L2VhMxtpPap 8TKJkLFS6tMF6oV2eLG ElRZday9R7vVH2R1Arn pKojv5la2yqHDQbELqf Y29 (more content not included)... [facility] Coding Summaryon 06-01-2024 Coding Summary HTMLBase 64 VvrvmlusADw5oHn+PGh lYWQ+XU4FWQIyR39qwG AwuM6vE2RGSLqFRqspI NLPBKoTAvNzztGqKT8a aXNjZXJu IC8+FQ0eOHLaTvetnLX sv3Y7bRJ8I21sho4hGZ zxsLV1FYAnPrQeawtkx 9wsdEr3LWfsJlvyKuAi QOUtoB70OSQ1tK88Zo8 3pLZhiOPxj9thzWr3Jj FrZUDhGPG5zBdoHIcqf 9ZcSWKtC83zgJFjr7I5 IGNvbGxhcHNlOyBlbXB 0cY9hEEigaccqp6zdyv ciXkz6bj56pBSqp9R2r BH3O9JdslC8EXRdbUHz BsftjLUYfO0qoqnsm0z yucivJuJoEWMoAUf6NV f0ZPKtbMnlAhOdVM17T GV0YBQpphKsX8AnVYEz iTunVmO5q7E2Bx2KA9W YDqvvF4EVBABPSJpgqH Q+NS76mr10D2QiBkcqW sp3KYDmRZQ6bTF8rK3r AXFsOWddp3H3xQS7G2D xdkWlyo7tk6zcRQPsMC sfL99wfJTiv2F2GIWgn BG1WOUhdHydSfFsvH04 Oyc+BVTfjAmps1CiHjo ye1vtv9crbSc3FnuzVR EmkcAgyFbqZLJ2u4UjG o1lKAXihNT6hQE1xP1b TrApHzE3ZSoyT006EvT lgFSwLeulU35wZ5HxaI A+BVZsDug2LXUwtDahD O3uH1OmWSBbrweuvCWr zLxwHA8xOJHeolnlGIW knX6qBVDbI0p8UkUwEb O2HYbkU3CsEOQpvhgnR f80gD0oPmFpYiS0RKdz C6RjgrM8SPZiaGEmCIp cDTI4Q62lo4S0EHNtNO TnBZE7eSF2cG1ajCahy jogbGVmdDsgdmVydGlj IGhaAQhuU143PBBzoMw nPkNvZGluZyBEYXRlOi AgMDcvMjkvMjAyNDwvd GQ+DGPkPKC4wBscDKUi tFBuNXdnFx5glDwkwMl zXC9gYGIhzjewDDSubK 1lNZZblSFcqHpbJL8jP YNeeoirh131BlLnXWH7 RBJubRQgG0UukN7gXaR dBOAbRXWlT6YogHWmAT rnD333YCriRjS5DEEvs gGrL9DjYJChmDouJkH8 w4T9Eg6Kk7DusorjE9U epGLbBqKaVtgvWYh1O4 RkPjwvdHI+GP44WBZoN U19YCf7KDG1sObiGXir BRHuP4LjfZ0bAuIpESC kZGRkOyc+PHRhYmxlIH dpZHRoPScxMDAlJyBzd ValYD0iNq6wCQNdYCAj rDvwnSGcZoMis9nyLOM wTNeiTX0mrRzeT2PnpE B2PYSxf7x6Eh60B44bD 3JvdXA+LHGrqPX6tQZ4 lW9zPgKiGcI9ADklB22 0CqSssYJlOqcgy7vlk7 mebVs5KsA8BNDmlnRkr EelLCS8m2XuMj34W36n IHdpZHRoPSIxNSUiIHZ aoDgpds4tkD0yEs6+PG EuvUU8zSW7qD6aMcMsC uU3KUrcS057SjRjzATq Rwurk5tvs8qrgNe6OnW gGUBztrXymWtlJBF5w2 QkPk47R2PwiKnfr8JtR fb5hn58tEJll3B2yIU7 X2FwLIExdnyszEYchFy pYG4sJUZnoxzhPMKrvM 7rKUTtA9n6CjUqToD4I RjwQ4OsdeC4HCQlzFTs OBZqwDPJpY6kjulej6a inlzqNdEoTZPpCGu7KH z7YPTnvRxoYwQfOVE4R eL3JQX4xPEbjY3vmGuo tkqhjQ4xSkq+FVI6eXY jqKFUOS6lNkcckAL+PH ZqQJJ2gNnaGJmuTCXri E3hWGXcQ0d7LdQkSfA0 GVdbG5BhgnL4YCPhxBP wVKCwyMVTbA6ggvrbj3 ttcomeDlQlGRLwFOb0L Fj1FCEmlDtnIqPcLMQ0 WoN5ASC0mIDygZ2leBx vklyjcQ6oHxm+QmlydG liXYE6VFf6Z6QwQbf8O YButLqeCO5geMNeNYdt Ed6qpQdplJnkJN2rCYV pksrvq381BhXxx9dhVM KfbGSqONqeTFI1Z53xk 8V9AGOePURlWDV4tTL0 kQ3exQrgzmxnfJHhmOo gdmVydGljYWwtYWxpZ2 49OHDbmGpfOuDuLZi2L 9SpAnk9LRGmgRrmVS8y uQCkTXmdAt9ncNeffYn hAU4cLHOmsfrhd555Yw Pxp5gwNEGzcRVxSEqeL NZ4Q18kb1M9PNIaACXy OWI1eWP0sA1khGoufdb gbGVmdDsgdmVydGljYW jcGHypL873JRVncAxrL sWfqEm4M3TmMgx2MYMy lTovTE9qoLIjXGvlMb2 giAsflFsbXN2bQAOddf yiq405VuUyw9hqHENfo ZFwJCbrEHB1Q66um2F4 DFMiAVVjETH5wTL5rU0 hbGlnbjogbGVmdDsgdm QqeZxnBSpmWWksR969I HRvcDsnPlBhdGllbnQg SPpxHYo0X9ReEdgdlHQ +ND77OMPlQB63kZLmrX Gth7odvBu4CoWfPBCoC TG2qXxzPGrgn5ZhAUWa C18uhTDhl8D7ZFIetRd fqVTrGsTsiTH3iQ6wVX ghabnix8xdjmqiOzwji 3crfz99wM91U20tKCjl ZHRoPSIzMCUiIHZhbGl pfi1teK4zWd5+PGNvbC O5bJZ4xN0kUHJvGnD6S MdzD429HhElpHOpOyju b6kbr8jeyPc7WzV3AIE qmoUurBxcMCP0l2KbUd 03X39rFGanSBPeDYNaO QEnDJMepLidom3zhU9d Ii8+FQDsoWV3yAF1gW0 oLmAhYcV0ZYqpQ580Wm WlhPTlKklnZ42hV9Tee XA+UBKnIsx7DKCyxWhc ZE4ysLCqHOkeAn8jXUO 1RpByPuVtNAetZ5WbLE LrywuljrkifFA5YCCrH ZMbmU98Om8eaWstRBAn hBFSeD6iqahob0bedsp dXkZuMQKiQTy6RPi8LS EptQlzHkMpQPG4PpI4A YT9vTPivI5wtPrlwfnt dC2xH8VyZVRnbimlJz9 3uM9dFcVrAjZ2YKgnZn c+HN2DHwJFY9cyKCcQB X9lOXdsmZI+PHRkIHN0 qFerZCxcZIKhpF9zRKX zS8j8TrPpHpX9LSulQ6 ZlHWHxoxveCh53hI8nR eUaXwP3JOlpC9IenhO5 DBTfvDEtDYwuJBR3Y29 ja7Y6FKPrDUIsUAN2yB L0rI2doBtpxuxdeIRcw DsgdmVydGljYWwtYWxp N234HSWlzGykZpLyAfI 9HpZ8Gmn9D6AmKkd5KN HxcGdzPT6uhRMnSJhnR q6hzVndgAuzNJ2eZDNj xjbpXFQwyF3eEKTabSF ykKpwUL1jKFShyfcux8 29ItEtARQ2XZKpeTFtM 7ZleV9hNsFhPYQuISXs K7MbiQXmMPzfA274IAi cQrI2SUDsoaRfU2LvZO FczHnoPuB5w2A5Fb94U SBZZWFyczwvdGQ+PHRk JKD3lKqiNQmeXOPbtC5 fOISnE9j6CvNrLkF0LD kcK1NiGYOxzvyiGi39e Z5uJmAiHhW9AMjsW4Fe kxG6PSOyfDHgBMsiYPX 3E07wv3K5OWMqHMYcHP D5wFS2qI2otTljqpqvc GVmdDsgdmVydGljYWwt SYkeP563DBOsnMzbVpG FTUFMRTwvdGQ+PHRkIH V1wQfzNZcdNFNglP2fT VDsC7i7JqYoCjC8AYrn N0ExNFBsyumlEt32pE3 gYsTxLtM1UTkvV8Eqcu M5OQGjdRYdOJmxZEY1Y 52vn0W3CDMuZRDrUTA6 cRT7mU7gkNfecirzzMH mdDsgdmVydGljYWwtYW juW711CHRepPdwYi3AT I43QK75W5NpDiiusEHs bGU+PHRhYmxlIHdpZHR oPScxMDAlJyBzdHlsZT 1zGo4mIIZyULMalCpsy OSeKsMzg3hqQTQlARfg KV7lvOawJ5IelUV0FHS ax9d8Gp76G74fB5RwiE A+TKYpgMF0nSP9cO7oN qHiWuM5QTwhY842VdNq eTZzOvrkf4ias0oxzCc 9IjMwJSIgdmFsaWduPS H4h4XhOi51I75tGWrhW HRoPSIyMCUiIHZhbGln dt7akS8vCm9+PGNvbCB 7yLX5rV0oLqJuGtM5HA egD592GfLpjVKaDajnO 45zJ5NrxFR+PHRyPjx0 GUYtlCisTF7qbYFnPFf yYt2fEBW3RxMkOrGcZH jqV5ObITAtzfvsajwlr JQ3OEHqYGRvdU47Wg5s iVxsXm9aCJPrEMO7KNQ vwRHjG5BmkP5hLxQnON KyGGRgJ0MryWTsVVltZ 617KJgyHlX5OMNhcoZw I6OxJDJlcCefYqG2b1N 2Qx9TqIjjaQUgEB2qRp KtXUw4S9YeWns3GSEoq RoaLX9woTHeMAkmWr5r dJeadDtxWS4uYOIwxkc qw810EiSgu7ssNWMkqR XoDBpnOQT0N54of6Z9C WXkYFEaMZT6xIC0uD6f bGlnbjogbGVmdDsgdmV zhCsnTJywULuqK716VS UwpYopUvJSUgc0R9KoS lv1GILsvFqxXH4uqDUo DBgrXu3fiWgyjXmxXJ1 yTOCwwioqm291JfCmz2 stEQGhvCCjNUdhNJY1W 87cn8K4TJRtCLQkBNC8 aMQ0bS5nkUmcfzydoPO mdDsgdmVydGljYWwtYW hgJ742XSKgmFteLy7DZ xo5K7VtCwr0OMBgjLth IZ9asBUhSTgeJb9thJw rkEpkHX6gTSCgijgko2 04KoSdl6pzUGZodDLdE KnoGGU5H33zd7T4NOYl XXGxPCT4dZY4kN7opMr nbjogbGVmdDsgdmVydG dzSLzeNAcuC753FUAtd DsnPlBheWVyOjwvdGQ+ DJ77go73H4JwTrlmJav 6ASVpXFY7lNY2rW8gTI RfASzfu7Z0cQM6V1Wvr qGqjz1mm6iwNHZcVZja Y29 (more content not included)... [facility] Wound Care Noteon 06-01-2024 Wound Care Note [id number] A#1.00OTGTIFF [facility] Wound Cultureon 05-30-2024 Wound Culture right lower leg, KD, 05-27-24, 16:00 Light growth of Escherichia coli and Moderate growth of Staphylococcus aureus No organisms seen. No White Blood Cells seen ORGANISM EC SA ------ SUSCEPTIBILITY ----- ORGANISM ID: 1 ANTIBIOTIC INTERPRETATION LORRAINE STATUS ORGANISM ECEC Amik S <=16 Verified Amox/Cla S <=8/4 Verified Amp S <=8 Verified Amp/Sul S <=8/4 Verified Azt S <=4 Verified Cefaz S <=2 Verified Cefep S <=8 Verified Cefo S <=2 Verified Ceftaz S <=1 Verified Ceftri S <=1 Verified Cefur S <=4 Verified Cipro S <=1 Verified Ertap S <=0.5 Verified Gent S <=2 Verified Imi S <=1 Verified Levo S <=2 Verified Nitro <=32 Verified Pip/Virgilio S <=16 Verified Tetra S <=4 Verified Tobra S <=4 Verified Tri/Sulf S <=2/38 Verified ------ SUSCEPTIBILITY ----- ORGANISM ID: 2 ANTIBIOTIC INTERPRETATION LORRAINE STATUS ORGANISM SASA Amox/Cla S <=4/2 Verified Amp Juan Luis >8 Verified Amp/Sul S <=8/4 Verified Ceftri S <=8 Verified Cipro I 2 Verified Eryth R >4 Verified Gent S <=4 Verified ICd Neg <=4/0.5 Verified Levo S <=1 Verified Linez S 2 Verified Nitro <=32 Verified Ox S <=0.25 Verified Pen Juan Luis >8 Verified Rif S <=1 Verified Tetra S <=4 Verified Tri/Sulf S <=0.5/9.5 Verified Vanc S 2 Verified [facility] Comment on above: Performed By: #### [id number] ####[facility] (DEFAULT)[address] [place] [address] Wound Care Noteon 05-25-2024 Wound Care Note [id number] 4#1.00OTGTIFF Normal [facility] MAMM DIAGNOSTIC UNILAT RT W CADon 05-19-2024 MAMM DIAGNOSTIC UNILAT RT W CAD MAMM DIAGNOSTIC UNILAT RT W CAD EXAM: MAMM DIAGNOSTIC UNILAT RT W CAD, 05/19/2024 11:03 AM CLINICAL INDICATIONS: Abnormal mammogram of right breast, COMPARISON: Compare is made to a screening mammogram dated 04/16/2024 TECHNIQUE: Spot medication views of the right breast were obtained. Tomosynthesis was also performed. FINDINGS: The breasts are heterogeneously dense, which may obscure small masses. Bilateral medication views confirm the presence of a cluster small calcifications in the mid upper aspect of the right breast, anterior depth. Stereotactic biopsy is recommended for further evaluation. IMPRESSION: A cluster of small calcifications in the mid upper aspect of the right breast, suspicious for malignancy. Stereotactic biopsy is recommended for further evaluation. BI-RADS: BI-RADS 4 - Suspicious Recommendation: Biopsy is recommended Patient was given the results before leaving the department. In discussing size with the patient, the patient stated that MRI examination of the breast was scheduled an outside facility. The MRI should be performed prior to the biopsy so as not to interfere with the MRI results. 5 Finalized by Gia Frances MD on 05/19/2024 12:27 PM 4 c BIOPSY Normal [facility] Wound Care Noteon 05-18-2024 Wound Care Note [id number] 0A#1.00OTGTIFF [facility] MAMM SCREENING BILATERAL W C occupational therapy asst 04-21-2024 MAMM SCREENING BILATERAL W CAD MAMM SCREENING BILATERAL W CAD *ADDENDUM*Addendum issued following receipt of prior studies from outside institution dated: 04/11/2023 and 04/05/2022 The current study has been compared to prior exams. The right breast calcifications are new and indeterminate. The patient will require additional imaging for further characterization. BI-RADS 0 - Incomplete. Needs additional imaging evaluation. Additional imaging required 1 Finalized by Suhail Oleary MD on 04/21/2024 8:16 AM 0A c ADDITIONAL I Normal [facility] COMPREHENSIVE METABOLIC PANE Des 01-23-2024 Albumin [Mass/Vol] 4.1 g/dL Normal 3.2-5.3 [facility] Comment on above: Performed By: #### Lawson BOUCHER, [id number] #### [facility] ([id number]) [address], [address] [place] [address] ALP [Catalytic activity/Vol] 55 U/L Normal 39-130 [facility] Comment on above: Performed By: #### Lawson BOUCHER, 45895-6 #### [facility] ([id number]) [address], [address] [place] [address] ALT [Catalytic activity/Vol] 16 U/L Normal 0-31 [facility] Comment on above: Performed By: #### Lawson BOUCHER, 25139-2 #### [facility] ([id number]) [address], [address] [place] [address] Anion gap [Moles/Vol] 10 mmol/L Normal 5-15 [facility] Comment on above: Performed By: #### Lawson BOUCHER, 51740-1 #### [facility] ([id number]) [address], [address] [place] [address] AST [Catalytic activity/Vol] 20 U/L Normal 0-41 [facility] Comment on above: Performed By: #### Lawson BOUCHER, 13010-9 #### [facility] ([id number]) [address], [address] [place] [address] Bilirubin [Mass/Vol] 1.0 mg/dL Normal 0.3-1.2 [facility] Comment on above: Performed By: #### Lawson BOUCHER, 20509-2 #### [facility] ([id number]) [address], [address] [place] [address] Calcium [Mass/Vol] 9.1 mg/dL Normal 8.5-10.5 [facility] Comment on above: Performed By: #### Lawson BOUCHER, 79177-7 #### [facility] ([id number]) [address], [address] [place] [address] Chloride [Moles/Vol] 98 mmol/L Normal 98-109 [facility] Comment on above: Performed By: #### Lawson BOUCHER, 89660-3 #### [facility] ([id number]) [address], [address] [place] [address] CO2 [Moles/Vol] 31 mmol/L Normal 22-32 [facility] Comment on above: Performed By: #### Lawson BOUCHER, 88728-6 #### [facility] ([id number]) [address], [address] [place] [address] Creatinine [Mass/Vol] 1.37 mg/dL High 0.40-1.00 [facility] Comment on above: Result Comment: METH OD TRACEABLE TO IDMS STANDARD Performed By: #### Lawson BOUCHER, 07536-8 #### [facility] ([id number]) [address], [address] [place] [address] GFR/1.73 sq M.predicted among non-blacks MDRD (S/P/Bld) [Vol rate/Area] 38 mL/min/{1.73_m2} Low >59 [facility] Comment on above: Result Comment: Reported eGFR is based on the CKD-EPI 2020 equation that does not use a race coefficient. Performed By: #### Lawson BOUCHER, 07518-9 #### [facility] ([id number]) [address], [address] [place] [address] Glucose [Mass/Vol] 179 mg/dL High 65-99 [facility] Comment on above: Performed By: #### Lawson BOUCHER, 44196-7 #### [facility] ([id number]) [address], [address] [place] [address] Potassium [Moles/Vol] 4.0 mmol/L Normal 3.5-5.0 [facility] Comment on above: Performed By: #### Lawson BOUCHER, 50442-7 #### [facility] ([id number]) [address], [address] [place] [address] Protein [Mass/Vol] 7.3 g/dL Normal 6.0-8.0 [facility] Comment on above: Performed By: #### Lawson BOUCHER, 91723-8 #### [facility] ([id number]) [address], [address] [place] [address] Sodium [Moles/Vol] 139 mmol/L Normal 134-146 [facility] Comment on above: Performed By: #### Lawson BOUCHER, 16497-1 #### [facility] ([id number]) [address], [address] [place] [address] Urea nitrogen [Mass/Vol] 34 mg/dL High 5-27 [facility] Comment on above: Performed By: #### Lawson BOUCHER, 35106-8 #### [facility] ([id number]) [address], [address] [place] [address] Comprehensive metabolic pane des 01-23-2024 Albumin [Mass/Vol] 4.1 g/dL 3.2 - 5.3 g/dL [facility] ALP [Catalytic activity/Vol] 55 U/L 39 - 130 U/L [facility] ALT No additional P-5'-P [Catalytic activity/Vol] 16 U/L 0 - 31 U/L [facility] Anion gap [Moles/Vol] 10 mmol/L 5 - 15 mmol/L [facility] AST [Catalytic activity/Vol] 20 U/L 0 - 41 U/L [facility] Bilirubin [Mass/Vol] 1.0 mg/dL 0.3 - 1 .2 mg/dL [facility] Calcium [Mass/Vol] 9.1 mg/dL 8.5 - 10. 5 mg/dL [facility] Chloride [Moles/Vol] 98 mmol/L 98 - 10 9 mmol/L [facility] CO2 [Moles/Vol] 31 mmol/L 22 - 32 mmol/L [facility] Creatinine [Mass/Vol] 1.37 mg/dL High 0.40 - 1.00 mg/dL [facility] Comment on above: METHOD TRACEABLE TO [facility] STANDARD eGFR (CKD-EPI)non-race dependent 38 Low - PINF [facility] Comment on above: Reported eGFR is based on the CKD-EPI 2020 equation that does not use a race coefficient. Glucose [Mass/Vol] 179 mg/dL High 65 - 99 mg/dL [facility] Potassium [Moles/Vol] 4.0 mmol/L 3.5 - 5.0 mmol/L [facility] Protein [Mass/Vol] 7.3 g/dL 6.0 - 8.0 g/dL [facility] Sodium [Moles/Vol] 139 mmol/L 134 - 146 mmol/L [facility] Urea nitrogen [Mass/Vol] 34 mg/dL High 5 - 27 mg/dL [facility] Lipid 1996 panelon 4 Cholesterol [Mass/Vol] 116 mg/dL Low 150 - 200 mg/dL [facility] Cholesterol in HDL [Mass/Vol] 36 mg/dL Low 39 - PINF mg/dL [facility] Comment on above: HDL <40 mg/dL - High Risk HDL > or = 40mg/dL- Desirable HDL >60 mg/dL - Negative Risk Cholesterol in LDL [Mass/Vol] 50 mg/dL NINF - 130 mg/dL [facility] Comment on above: LDL <100 mg/dL - Desirable LDL >160 mg/dL - High Risk Cholesterol in VLDL [Mass/Vol] 30 mg/dL 0 - 30 mg/dL [facility] Cholesterol.total/Chol esterol in HDL [Mass ratio] 3.2 {ratio} 1.0 - 5.0 [facility] Triglyceride [Mass/Vol] 148 mg/dL 27 - 150 mg/dL [facility] Cholesterol [Mass/Vol] 116 mg/dL Low 150-200 [facility] Comment on above: Performed By: #### Lawson BOUCHER, 76586-9 #### [facility] ([id number]) [address], [address] [place] [address] Cholesterol in HDL [Mass/Vol] 36 mg/dL Low >39 [facility] Comment on above: Result Comment: HDL <40 mg/dL - High Risk HDL > or = 40mg/dL- Desirable HDL >60 mg/dL - Negative Risk Performed By: #### Lawson BOUCHER, 23100-2 #### [facility] ([id number]) [address], [address] [place] [address] Cholesterol in LDL [Mass/Vol] 50 mg/dL Normal <130 [facility] Comment on above: Result Comment: LDL <100 mg/dL - Desirable LDL >160 mg/dL - High Risk Performed By: #### Lawson BOUCHER, 62233-8 #### [facility] ([id number]) [address], [address] [place] [address] Cholesterol in VLDL [Mass/Vol] 30 mg/dL Normal 0-30 [facility] Comment on above: Performed By: #### Lawson BOUCHER, 75469-9 #### [facility] ([id number]) [address], [address] [place] [address] CHOLESTEROL:HDL 3.2 Normal 1.0-5.0 [facility] Comment on above: Performed By: #### C CITLALY, 24784-0 #### [facility] ([id number]) [address], [address] [place] [address] Triglyceride [Mass/Vol] 148 mg/dL Normal 27-150 [facility] Comment on above: Performed By: #### C CITLALY, 61862-2 #### [facility] ([id number]) [address], [address] [place] [address] No Panel Informationon 01-22 Interpretation and review of laboratory results Abnormal [facility] POCT Influenza A/Influenza B /SARS-COV-2 VeritorOrdered By: Dulce Maria Boykin on 01-09-2024 External Poct Influenza A Antigen Negative [facility] External Poct Influenza B Antigen Negative [facility] SARS-CoV-2 (COVID-19) Ag IA.rapid Ql (Resp) Negative [facility] LIPID PROFILEon 12-04-2022 CHOL-HDL RATIO NORM SEE BELOW Normal [facility] Comment on above: Result Comment: 3.3 - 4.4 LOW RISK 4.4 - 7.1 AVERAGE RISK 7.1 - 11.0 MODERATE RISK >11.0 HIGH RISK Performed By: #### Willy ALEX LIPID ####[facility] [address] [place] [id number]. Breanna Heller Cholesterol [Mass/Vol] 112 mg/dL Normal <=200 [facility] Comment on above: Performed By: #### Willy ALEX LIPID ####[facility] [address] [place] [id number] Heller Cholesterol in HDL [Mass/Vol] 38 mg/dL Critically low 40-60 [facility] Comment on above: Performed By: #### Willy ALEX LIPID ####[facility] [address]pim[address] [place] [id number] Heller Cholesterol in LDL [Mass/Vol] 41.6 mg/dL Normal [facility] Comment on above: Performed By: #### R ENAUGUSTINE, LIPID ####[facility] [address]imttmjln[address] [place] [phone]. Breanna Heller Cholesterol.total/Chol esterol in HDL [Mass ratio] 2.9 {ratio} Normal [facility] Comment on above: Performed By: #### R ENAUGUSTINE, LIPID ####[facility] [address] [place] [id number]. Breanna Heller HDL NORMAL > or = 60 mg/dl - LOW CARDIOVASCULAR RISK <40 mg/dl - HIGH CARDIOVASCULAR RISK Normal [facility] Comment on above: Performed By: #### R ENAUGUSTINE, LIPID ####[facility] [address] [place] [phone]. Breanna Heller LDL CALC NORMAL SEE BELOW Normal [facility] Comment on above: Result Comment: <100 mg/dl OPTIMAL 100 - 129 mg/dl NEAR OR ABOVE OPTIMAL 130 - 159 mg/dl BORDERLINE HIGH 160 - 189 mg/dl HIGH >190 mg/dl VERY HIGH Performed By: #### R ENAUGUSTINE, LIPID ####[facility] [address] [place] [id number]. Breanna Heller Triglyceride [Mass/Vol] 162 mg/dL Critically high <=150 [facility] Comment on above: Performed By: #### R ENAUGUSTINE, LIPID ####[facility] [address] [place] [phone]. Breanna Heller VLDL CALC 32.4 mg/dL Normal [facility] Comment on above: Performed By: #### R ENAUGUSTINE, LIPID ####[facility] [address]irt[address] [place] [phone]. Breanna Heller MICROALB CREAT RATIO RANDOMo n 12-04-2022 mALB <1.3 Normal <=30.0 [facility] Comment on above: Performed By: #### M CRR ####[facility] [address] [place] [id number]. Breanna Heller MALB CR RATIO 100.0 mg/g Critically high 0.0-29.9 [facility] Comment on above: Result Comment: Prev iously reported as: 149.1 On 12/04/2022 09:35 By [email or web address] Performed By: #### M CRR ####[facility] [address] [place] [address]Dr. Breanna Heller MALB CR RATIO RANGE SEE BELOW Normal [facility] Comment on above: Result Comment: NO M ICROALBUMINURIA 0-29 MG/G CLINICAL MICROALBUMINURIA 30-300 MG/G MACROALBUMINURIA >300 MG/G Performed By: #### M CRR ####[facility] [address] [place] [address]Dr. Breanna Heller URINE CREAT <13.00 Critically low 20.00-300.00 [facility] Comment on above: Result Comment: Prev iously reported as: 8.72 On 12/04/2022 09:35 By [email or web address] Performed By: #### M CRR ####[facility] [address] [place] [address]Dr. Breanna Heller RENAL FUNCTION PANELon 12-04 Albumin [Mass/Vol] 3.7 g/dL Normal 3.4-5.0 [facility] Comment on above: Performed By: #### R ENAUGUSTINE, LIPID ####[facility] [address] [place] [address]Dr. Breanna Heller Calcium [Mass/Vol] 8.8 mg/dL Normal 8.5-10.1 [facility] Comment on above: Performed By: #### R ENAL, LIPID ####[facility] [address] [place] [address]Dr. Breanna Heller Chloride [Moles/Vol] 102 mmol/L Normal 98-107 [facility] Comment on above: Performed By: #### R ENAL, LIPID ####[facility] [address] [place] [address]Dr. Breanna Heller CO2 [Moles/Vol] 31.7 mmol/L Normal 21.0-32.0 [facility] Comment on above: Performed By: #### R ENAL, LIPID ####[facility] [address]auliv[address] [place] [id number]. Breanna Heller Creatinine [Mass/Vol] 1.31 mg/dL Critically high 0.55-1.02 [facility] Comment on above: Performed By: #### R ENAL, LIPID ####[facility] [address] [place] [phone]. Breanna Heller EGFR-AF DOMINICAN 47 mL/min/1.73m2 Critically low >=60 [facility] Comment on above: Performed By: #### R ENAL, LIPID ####[facility] [address]qu[address]os[address] [place] [id number]. Breanna Heller EGFR-NON AF DOMINICAN 39 mL/min/1.73m2 Critically low >=60 [facility] Comment on above: Performed By: #### R ENAL, LIPID ####[facility] [address] [place], [place] [address]Dr. Breanna Heller Glucose [Mass/Vol] 163 mg/dL Critically high 74-106 [facility] Comment on above: Performed By: #### R ENAL, LIPID ####[facility] [address] [place], [place] [address]Dr. Shaniquevera Heller Phosphate [Mass/Vol] 4.1 mg/dL Normal 2.6-4.7 [facility] Comment on above: Performed By: #### R ENAL, LIPID ####[facility] [address] [place], [place] [address]Dr. Breanna Heller Potassium [Moles/Vol] 4.7 mmol/L Normal 3.5-5.1 [facility] Comment on above: Performed By: #### R ENAL, LIPID ####[facility] [address] [place] [address]Dr. Shaniquevera Heller Sodium [Moles/Vol] 143 mmol/L Normal 136-145 [facility] Comment on above: Performed By: #### R ENAL, LIPID ####[facility] [address]mup[address]rhj[address] [place] [address]Dr. Breanna Heller Urea nitrogen [Mass/Vol] 32.0 mg/dL Critically high 7.0-18.0 [facility] Comment on above: Performed By: #### R ENAL, LIPID ####[facility] [address]fx[address] [place] [address]DrRoman Heller VITAMIN D 25 OHon 12-04-2022 VIT D 25-OH 33.2 ng/mL Normal [facility] Comment on above: Performed By: #### V ITAD ####[facility] [address] [place] [address]Dr. Breanna Heller VIT D RANGES SEE BELOW Normal [facility] Comment on above: Result Comment: <20 ng/mL Vit D deficient 20 - <30 ng/mL Vit D insufficient 30 - 100 ng/mL Vit D sufficient >100 ng/mL Potential Toxicity Performed By: #### V ITAD ####[facility] [address] [place], [place] [address]Dr. Breanna Heller PTH INTACTon 11-23-2022 PTH, Intact 40 pg/mL Normal 15-65 [facility] Comment on above: Performed By: #### P THINT #### [facility] [address] [address] [address] Breanna Heller CBC AUTO DIFFon 11-22-2022 BASO # 0.0 103/ul Normal 0.0-0.1 [facility] Comment on above: Performed By: #### C BC ####[facility] [address]urbtax[address] [place] [address]Dr. Breanna Heller Basophils/100 WBC (Bld) 0.3 % Normal 0.2-2.0 [facility] Comment on above: Performed By: #### C BC ####[facility] [address] [place], [place] [address]DrRoman Heller EO # 0.2 103/ul Normal 0.0-0.7 [facility] Comment on above: Performed By: #### C BC ####[facility] [address]sw[address] [place] [address]DrRoman Heller Eosinophils/100 WBC (Bld) 1.9 % Normal 0.9-7.0 [facility] Comment on above: Performed By: #### C BC ####[facility] [address]kt[address]xmeiz[address] [place] [address]Dr. Breanna Heller Erythrocyte distribution width (RBC) [Ratio] 15.9 % Critically high 11.0-15.0 [facility] Comment on above: Performed By: #### C BC ####[facility] [address] [place] [address]Dr. Breanna Heller Hematocrit (Bld) [Volume fraction] 44.1 % Normal 36.0-48.0 [facility] Comment on above: Performed By: #### C BC ####[facility] [address] [place], [place] [address]Dr. Breanna Heller Hemoglobin (Bld) [Mass/Vol] 14.1 g/dL Normal 12.0-16.0 [facility] Comment on above: Performed By: #### C BC ####[facility] Z[address] [place], [place] [address]Dr. Breanna Heller IG # 0.04 10e3/ul Critically high 0.00-0.03 [facility] Comment on above: Performed By: #### C BC ####[facility] [address] [place], [place] [address]Dr. Breanna Heller IG % 0.4 % Normal 0.0-0.5 [facility] Comment on above: Performed By: #### C BC ####[facility] [address] [place], [place] [address]Dr. Breanna Heller LYMPH # 3.1 103/ul Normal 1.2-3.8 [facility] Comment on above: Performed By: #### C BC ####[facility] [address] [place], [place] [address]Dr. Breanna Heller Lymphocytes/100 WBC (Bld) 30.8 % Normal 20.5-60.0 [facility] Comment on above: Performed By: #### C BC ####[facility] [address] [place], [place] [address]Dr. Breanna Heller MANUAL DIFF REQ NO Normal [facility] Comment on above: Performed By: #### C BC ####[facility] [address]gbscwe[address] [place] [id number]. Breanna Arron MCH (RBC) [Entitic mass] 29.6 pg Normal 26.7-34.0 [facility] Comment on above: Performed By: #### C BC ####[facility] [address] [place] [id number]. Breanna Arron MCHC (RBC) [Mass/Vol] 32.0 g/dL Normal 29.9-35.2 [facility] Comment on above: Performed By: #### C BC ####[facility] [address]wnsmvk[address] [place] [id number]. Shaniquevera Heller MCV (RBC) [Entitic vol] 92.6 fL Normal 81.0-99.0 [facility] Comment on above: Performed By: #### C BC ####[facility] [address] [place], [place] [address]Dr. Breanna Heller MONO # 0.7 103/ul Normal 0.3-0.8 [facility] Comment on above: Performed By: #### C BC ####[facility] Z[address] [place], [place] [address]Dr. Breanna Heller Monocytes/100 WBC (Bld) 7.3 % Normal 1.7-12.0 [facility] Comment on above: Performed By: #### C BC ####[facility] [address] [place], [place] [address]Dr. Breanna Heller NEUT # 6.0 103/ul Normal 1.4-6.5 [facility] Comment on above: Performed By: #### C BC ####[facility] [address] [place], [place] [address]Dr. Breanna Heller Neutrophils/100 WBC (Bld) 59.3 % Normal 43.0-75.0 [facility] Comment on above: Performed By: #### C BC ####[facility] [address] [place], [place] [address]Dr. Breanna Heller Platelet mean volume (Bld) [Entitic vol] 10.2 fL Normal 9.5-13.5 [facility] Comment on above: Performed By: #### C BC ####[facility] [address] [place], [place] [address]Xh. Breanna Heller PLT 198 103/ul Normal 150-450 [facility] Comment on above: Performed By: #### C BC ####[facility] [address] [place], [place] [address]Hr. Breanna Heller RBC 4.76 106/ul Normal 4.20-5.40 [facility] Comment on above: Performed By: #### C BC ####[facility] [address] [place], [place] [address]Uj. Breanna Heller WBC 10.1 103/ul Normal 4.0-11.0 [facility] Comment on above: Performed By: #### C BC ####[facility] [address] [place], [place] [address]Yk. Breanna Heller FREE T3on 11-22-2022 FREE T3 2.12 pg/mlL Critically low 2.18-3.98 [facility] Comment on above: Performed By: #### M G, FT3, TSH, BMP, PHOS #### [facility] [address] [place] [address] [address] Breanna Heller FREE T4on 11-22-2022 Free T4 [Mass/Vol] 1.14 ng/dL Normal 0.76-1.46 [facility] Comment on above: Performed By: #### P THINT #### [facility] [address] [address] [address] Breanna Heller MAGNESIUMon 11-22-2022 Magnesium [Mass/Vol] 2.2 mg/dL Normal 1.8-2.4 [facility] Comment on above: Performed By: #### M G, FT3, TSH, BMP, PHOS #### [facility] [address] [address] [address] Breanna Heller PHOSPHORUSon 11-22-2022 Phosphate [Mass/Vol] 3.7 mg/dL Normal 2.6-4.7 [facility] Comment on above: Performed By: #### M G, FT3, TSH, BMP, PHOS #### [facility] [address] [address] [address] Breanna Heller PROF CHEM 8 (BAS METB)on Anion gap [Moles/Vol] 12.8 mmol/L Normal [facility] Comment on above: Performed By: #### M G, FT3, TSH, BMP, PHOS #### [facility] [address] [address] [address] Breanna Heller Calcium [Mass/Vol] 9.0 mg/dL Normal 8.5-10.1 [facility] Comment on above: Performed By: #### M G, FT3, TSH, BMP, PHOS #### [facility] [address] [address] [address] Breanna Heller Chloride [Moles/Vol] 100 mmol/L Normal 98-107 [facility] Comment on above: Performed By: #### M G, FT3, TSH, BMP, PHOS #### [facility] [address] [address] [address] Breanna Heller CO2 [Moles/Vol] 32.1 mmol/L Critically high 21.0-32.0 [facility] Comment on above: Performed By: #### M G, FT3, TSH, BMP, PHOS #### [facility] [address] [address] [address] Breanna Heller Creatinine [Mass/Vol] 1.34 mg/dL Critically high 0.55-1.02 [facility] Comment on above: Performed By: #### M G, FT3, TSH, BMP, PHOS #### [facility] [address] [address] [address] Breanna Heller EGFR-AF DOMINICAN 46 mL/min/1.73m2 Critically low >=60 [facility] Comment on above: Performed By: #### M G, FT3, TSH, BMP, PHOS #### [facility] [address] [address] [address] Breanna Heller EGFR-NON AF DOMINICAN 38 mL/min/1.73m2 Critically low >=60 [facility] Comment on above: Performed By: #### M G, FT3, TSH, BMP, PHOS #### [facility] [address] [address] [address] Breanna Heller Glucose [Mass/Vol] 156 mg/dL Critically high 74-106 [facility] Comment on above: Performed By: #### M G, FT3, TSH, BMP, PHOS #### [facility] [address] [place] [address] Dr. Breanna Heller Potassium [Moles/Vol] 3.9 mmol/L Normal 3.5-5.1 [facility] Comment on above: Performed By: #### M G, FT3, TSH, BMP, PHOS #### [facility] [address] [place] [address] Dr. Breanna Heller Sodium [Moles/Vol] 141 mmol/L Normal 136-145 [facility] Comment on above: Performed By: #### M G, FT3, TSH, BMP, PHOS #### [facility] [address] [place] [address] Dr. Breanna Heller Urea nitrogen [Mass/Vol] 30.0 mg/dL Critically high 7.0-18.0 [facility] Comment on above: Performed By: #### M G, FT3, TSH, BMP, PHOS #### [facility] [address] [place] [address] Dr. Brenana Heller Urea nitrogen/Creatinine [Mass ratio] 22.4 mg/mg Normal [facility] Comment on above: Performed By: #### M G, FT3, TSH, BMP, PHOS #### [facility] [address] [place] [address] Dr. Breanna Heller TSHon 11-22-2022 TSH 2.711 uIU/mL Normal 0.358-3.740 [facility] Comment on above: Performed By: #### M G, FT3, TSH, BMP, PHOS #### [facility] [address] [place] [address] Dr. Breanna Heller VITAMIN B12on 11-22-2022 Cobalamin (Vitamin B12) [Mass/Vol] 248.0 pg/mL Normal 193.0-986.0 [facility] Comment on above: Performed By: #### P THINT #### [facility] [address] [address] [address] Breanna Heller VITAMIN D 25 OHon 11-22-2022 VIT D 25-OH 37.4 ng/mL Normal [facility] Comment on above: Performed By: #### P THINT #### [facility] [address] [address] [address] Breanna Heller VIT D RANGES SEE BELOW Normal [facility] Comment on above: Result Comment: <20 ng/mL Vit D deficient 20 - <30 ng/mL Vit D insufficient 30 - 100 ng/mL Vit D sufficient >100 ng/mL Potential Toxicity Performed By: #### P THINT #### [facility] [address] [address] [address] Breanna Heller XR CHEST 2 Von [...] process. Stable chest. Electronically authenticated by: DEYA FAN Date: 2022-11-22 11:41 Normal [facility] FERRITINon 07-25-2022 Ferritin [Mass/Vol] 95.0 ng/mL Normal 8.0-252.0 [facility] Comment on above: Performed By: #### F ERR, B12FOL #### [facility] [address] [id number] Breanna Heller MAGNESIUMon 07-25-2022 Magnesium [Mass/Vol] 2.3 mg/dL Normal 1.8-2.4 [facility] Comment on above: Performed By: #### M G, PHOS, TSH ####[facility] [address] [place], [place] [address]NdDr. Breanna Heller PHOSPHORUSon 07-25-2022 Phosphate [Mass/Vol] 3.5 mg/dL Normal 2.6-4.7 [facility] Comment on above: Performed By: #### P THINT #### [facility] [address] [place], [place] [address] Dr. Breanna Heller TSHon 07-25-2022 TSH 4.584 uIU/mL Critically high 0.358-3.740 [facility] Comment on above: Performed By: #### M G, PHOS, TSH ####[facility] [address] [place], [place] [address]FgDr. Breanna Heller VIT B12 AND FOLATEon 022 Cobalamin (Vitamin B12) [Mass/Vol] 343.0 pg/mL Normal 193.0-986.0 [facility] Comment on above: Performed By: #### F ERR, B12FOL #### [facility] [address] [address] [address] Breanna Heller FOLATE 18.50 ng/mL Normal 8.60-58.90 [facility] Comment on above: Performed By: #### F ERR, B12FOL #### [facility] [address] [address] [address] Breanna Heller XR CHEST 2 Von [...] stable mild cardiomegaly. Electronically authenticated by: DEYA FAN Date: 2022-07-25 17:42 Normal [facility] MG MAMM SCREEN CATHY W CADon 0 04-05-2022 MG MAMM SCREEN CATHY W CAD Patient: JOYCELYN HAMM Exam Date: 04/05/2022 : 1940 Gender:F Ordering : DR DOCTOR CROSS Admission #: [id number] Family : Order #: [id number] CLICK HERE TO VIEW EXAM RADIOLOGY REPORT PROCEDURE: MAMMOGRAM BILATERAL SCREENING DIGITAL WITH COMPUTER AIDED DETECTION COMPARISON: MG MAMM SCREEN CATHY W CAD, 03/07/2021. MG MAMM SCREEN 3D CATHY CAD, 06/24/2017. INDICATIONS: Screening mammography Calculator Name NCI Breast Cancer Risk Assessment Tool 5 Year Breast Cancer Risk 5.20% Lifetime Breast Cancer Risk 6.30% Personal Breast Cancer No Personal Ovarian Cancer No Treatments None Family Cancers Sister with breast cancer at age 59; Sister with breast cancer at age 49. LOCATION: [facility] BREAST COMPOSITION: Extremely dense, which lowers the [...] LUMP SHOULD BE BIOPSIED. Dictated by: Deya Fan M.D. on 04/05/2022 at 10:57 Approved by: Deya Fan M.D. on 04/05/2022 at 11:04 Normal [facility] US SINGLE QUAD RT UPPERon US SINGLE [...] by: GIA MARQUES Date: 2022-04-05 16:53 Normal [facility] CTA CHEST WO W CONon 022 CTA [...] GIA MARQUES Date: 2022-01-16 07:37 Normal [facility] BUNon 01-15-2022 Urea nitrogen [Mass/Vol] 28.0 mg/dL Critically high 7.0-17.0 [facility] Comment on above: Performed By: #### B AMI PATIÑO ####[facility] [address] [place] [address]DrRoman Shaniquevera Heller CREATININEon 01-15-2022 Creatinine [Mass/Vol] 1.33 mg/dL Critically high 0.52-1.04 [facility] Comment on above: Performed By: #### B UN, CREA ####[facility] [address] [place], [place] [address]Xs. Breanna Heller EGFR-AF DOMINICAN 46 mL/min/1.73m2 Critically low >=60 [facility] Comment on above: Performed By: #### B UN, CREA ####[facility] [address] [place], [place] [address]Po. Breanna Heller EGFR-NON AF DOMINICAN 38 mL/min/1.73m2 Critically low >=60 [facility] Comment on above: Performed By: #### B UN, CREA ####[facility] [address] [place], [place] [address]Dk. Breanna Heller ECHOCARDIO M/2D COMPLETEon 0 01-15-2022 ECHOCARDIO M/2D COMPLETE Patient: JOYCELYN HAMM Exam Date: 01/15/2022 : 1940 Gender:F Ordering : DR DANYEL GONZALEZ Admission #: [id number] Family : Order #: [id number] CLICK HERE TO VIEW EXAM ECHOCARDIOGRAM REPORT [...] Area(A4C): 20.60 cm2 Left Atrium Systolic Volume(A2C): 89557 mm3 Left Atrium Systolic Volume(A4C): 31549 mm3 Mitral Valve MV E to A [...] Timmons M.D. on 01/15/2022 at 17:00 Normal [facility] HEMOGLOBINon 12-18-2021 Hemoglobin (Bld) [Mass/Vol] 12.8 g/dL Normal 12.0-16.0 [facility] Comment on above: Performed By: #### H GB ####[facility] [address] [place], [place] [address]RiRoman Heller XR CHEST 2 Von 12-18-2021 XR [...] by: GIA MARQUES Date: 2021-12-18 09:06 Normal [facility] Hgb/Hcton 12-29-2018 Hematocrit Volume Fraction (Bld) 26.3 % Low 36.3-47.1 [facility] Comment on above: Performed By: #### P T, PTT #### [email or web address] [address] [place] [address] Sheriff'S Sergeant: Mir Chinchilla MD Hemoglobin mass conc (Bld) 8.5 g/dL Low 11.9-15.1 [facility] Comment on above: Performed By: #### P T, PTT #### [employer] [address] [place] [address] Sheriff'S Sergeant: Mir Chinchilla MD Basic Metabolic Profon 12-28 (cont.) Normal [facility] Comment on above: Result Comment: Aver age GFR for 70 or more years old: 75 mL/min/1.73sq m Chronic Kidney Disease: <60 mL/min/1.73sq m Kidney failure: <15 mL/min/1.73sq m eGFR calculated using average adult body mass. Additional eGFR calculator available at: http://www.Yohobuy.Splash.FM/multiple_crcl_2012.htm Performed By: #### P T, PTT #### [email or web address] [address] [place] [address] Sheriff'S Sergeant: Mir Chinchilla MD Anion gap molar conc 12 mmol/L Normal 9-17 [facility] Comment on above: Performed By: #### P T, PTT #### [employer] [address] [place] [address] Sheriff'S Sergeant: Mir Chinchilla MD Calcium mass conc 7.7 mg/dL Low 8.6-10.4 [facility] Comment on above: Performed By: #### P T, PTT #### [email or web address] [address] [place] [address] Sheriff'S Sergeant: Mir Chinchilla MD Chloride molar conc 105 mmol/L Normal 98-107 [facility] Comment on above: Performed By: #### P T, PTT #### [email or web address] [address] [place] [address] Sheriff'S Sergeant: Mir Chinchilla MD CO2 molar conc 23 mmol/L Normal 20-31 [facility] Comment on above: Performed By: #### P T, PTT #### [email or web address] [address] [place] [address] Sheriff'S Sergeant: Mir Chinchilla MD Creatinine mass conc 1.13 mg/dL High 0.50-0.90 [facility] Comment on above: Performed By: #### P T, PTT #### [email or web address] [address] [place] [address] Sheriff'S Sergeant: Mir Chinchilla MD GFR, Amer 56 mL/min Low >60 [facility] Comment on above: Performed By: #### P T, PTT #### [employer] [address] [place] [address] Sheriff'S Sergeant: Mir Chinchilla MD GFR,non Amer 46 mL/min Low >60 [facility] Comment on above: Performed By: #### P T, PTT #### [email or web address] [address] [place] [address] Sheriff'S Sergeant: Mir Chinchilla MD Glucose mass conc 246 mg/dL High 70-99 [facility] Comment on above: Performed By: #### P T, PTT #### [facility] [address] [place] [address] Sheriff'S Sergeant: Mir Chinchilla MD Potassium molar conc 4.1 mmol/L Normal 3.7-5.3 [facility] Comment on above: Performed By: #### P T, PTT #### [facility] [address] [place] [address] Sheriff'S Sergeant: Mir Chinchilla MD Sodium molar conc 140 mmol/L Normal 135-144 [facility] Comment on above: Performed By: #### P T, PTT #### [address] [address] Sheriff'S Sergeant: Mir Chinchilla MD Urea nitrogen mass conc 26 mg/dL High 8-23 [facility] Comment on above: Performed By: #### P T, PTT #### [facility] [address] [place] [address] Sheriff'S Sergeant: Mir Chinchilla MD BUN/CRE Ratio NOT REPORTED Normal 9-20 [facility] Comment on above: Performed By: #### P T, PTT #### [facility] [address] [place] [address] Sheriff'S Sergeant: Mir Chinchilla MD Staging: NOT REPORTED Normal [facility] Comment on above: Performed By: #### P T, PTT #### [address] [address] Sheriff'S Sergeant: Mir Chinchilla MD CBC with Diffon 12-28-2018 Abs. Basophil <0.03 Normal 0.00-0.20 [facility] Comment on above: Performed By: #### P T, PTT #### [place] [address] Sheriff'S Sergeant: Mir Chinchilla MD Abs.Imm.Granulocyte 0.04 k/uL Normal 0.00-0.30 [facility] Comment on above: Performed By: #### P T, PTT #### [place] [address] Sheriff'S Sergeant: Mir Chinchilla MD Abs.Neutrophil (Seg) 5.78 k/uL Normal 1.50-8.10 [facility] Comment on above: Performed By: #### P T, PTT #### [place] [address] Sheriff'S Sergeant: Mir Chinchilla MD Basophils/100 WBC (Bld) 0 % Normal 0-2 [facility] Comment on above: Performed By: #### P T, PTT #### [place] [address] Sheriff'S Sergeant: Mir Chinchilla MD Eosinophils #/vol (Bld) 0.09 10*3/uL Normal 0.00-0.44 [facility] Comment on above: Performed By: #### P T, PTT #### [place] [address] Sheriff'S Sergeant: Mir Chinchilla MD Eosinophils/100 WBC (Bld) 1 % Normal 1-4 [facility] Comment on above: Performed By: #### P T, PTT #### [place] [address] Sheriff'S Sergeant: Mir Chinchilla MD Erythrocyte distribution width Ratio (RBC) 16.9 % High 11.8-14.4 [facility] Comment on above: Performed By: #### P T, PTT #### [address] [address] Sheriff'S Sergeant: Mir Chinchilla MD Hematocrit Volume Fraction (Bld) 22.3 % Low 36.3-47.1 [facility] Comment on above: Performed By: #### P T, PTT #### [address] [address] Sheriff'S Sergeant: Mir Chinchilla MD Hemoglobin mass conc (Bld) 7.1 g/dL Low 11.9-15.1 [facility] Comment on above: Performed By: #### P T, PTT #### [address] [address] Sheriff'S Sergeant: Mir Chinchilla MD Immature granulocytes #/vol (Bld) 0 % Normal 0 [facility] Comment on above: Performed By: #### P T, PTT #### [address] [address] Sheriff'S Sergeant: Mir Chinchilla MD Lymphocytes #/vol (Bld) 2.59 10*3/uL Normal 1.10-3.70 [facility] Comment on above: Performed By: #### P T, PTT #### [address] [address] Sheriff'S Sergeant: Mir Chinchilla MD Lymphocytes/100 WBC (Bld) 28 % Normal 24-43 [facility] Comment on above: Performed By: #### P T, PTT #### [address] [address] Sheriff'S Sergeant: Mir Chinchilla MD MCH Entitic mass (RBC) 29.0 pg Normal 25.2-33.5 [facility] Comment on above: Performed By: #### P T, PTT #### [address] [address] Sheriff'S Sergeant: Mir Chinchilla MD MCHC mass conc (RBC) 31.8 g/dL Normal 28.4-34.8 [facility] Comment on above: Performed By: #### P T, PTT #### [address] [address] Sheriff'S Sergeant: Mir Chinchilla MD MCV Entitic volume (RBC) 91.0 fL Normal 82.6-102.9 [facility] Comment on above: Performed By: #### P T, PTT #### [address] [address] Sheriff'S Sergeant: Mir Chinchilla MD Monocytes #/vol (Bld) 0.74 10*3/uL Normal 0.10-1.20 [facility] Comment on above: Performed By: #### P T, PTT #### [address] [address] Sheriff'S Sergeant: Mir Chinchilla MD Monocytes/100 WBC (Bld) 8 % Normal 3-12 [facility] Comment on above: Performed By: #### P T, PTT #### [address] [address] Sheriff'S Sergeant: Mir Chinchilla MD Neutrophil (Seg) 63 % Normal 36-65 [facility] Comment on above: Performed By: #### P T, PTT #### [address] [address] Sheriff'S Sergeant: Mir Chinchilla MD NRBC Automated 0.0 per 100 WBC Normal 0.0 [facility] Comment on above: Performed By: #### P T, PTT #### [address] [address] Sheriff'S Sergeant: Mir Chinchilla MD Platelet mean volume Entitic volume (Bld) 11.1 fL Normal 8.1-13.5 [facility] Comment on above: Performed By: #### P T, PTT #### [address] [address] Sheriff'S Sergeant: Mir hCinchilla MD Platelets #/vol (Bld) 93 10*3/uL Low 138-453 [facility] Comment on above: Performed By: #### P T, PTT #### [address] [address] Sheriff'S Sergeant: Mir Chinchilla MD RBC #/vol (Bld) 2.45 10*6/uL Low 3.95-5.11 [facility] Comment on above: Performed By: #### P T, PTT #### [address] [address] Sheriff'S Sergeant: Mir Chinchilla MD RBC morphology finding Nom (Bld) ANISOCYTOSIS PRESENT Normal [facility] Comment on above: Performed By: #### P T, PTT #### [address] [address] Sheriff'S Sergeant: Mir Chinchilla MD WBC #/vol (Bld) 9.3 10*3/uL Normal 3.5-11.3 [facility] Comment on above: Performed By: #### P T, PTT #### [address] [address] Sheriff'S Sergeant: Mir Chinchilla MD Auto Diff Performed NOT REPORTED Normal [facility] Comment on above: Performed By: #### P T, PTT #### [address] [address] Sheriff'S Sergeant: Mir Chinchilla MD Platelets #/vol (Bld) NOT REPORTED Normal [facility] Comment on above: Performed By: #### P T, PTT #### [address] [address] Sheriff'S Sergeant: Mir Chinchilla MD WBC Morphology NOT REPORTED [facility] Comment on above: Performed By: #### P T, PTT #### [address] [address] Sheriff'S Sergeant: Mir Chincihlla MD Cult,Urineon 12-28-2018 Cult,Urine Specimen Description .CATHETERIZED URINE ORLANDO INSERTION Special Requests NOT REPORTED Culture NO GROWTH Report Status FINAL 12/28/2018 [facility] Comment on above: Performed By: #### P T, PTT #### [address] [address] Sheriff'S Sergeant: Mir Chinchilla MD Basic Metabolic Profon 12-27 (cont.) [facility] Comment on above: Result Comment: Aver age GFR for 70 or more years old: 75 mL/min/1.73sq m Chronic Kidney Disease: <60 mL/min/1.73sq m Kidney failure: <15 mL/min/1.73sq m eGFR calculated using average adult body mass. Additional eGFR calculator available at: http://www.Yohobuy.Splash.FM/multiple_crcl_2012.htm Performed By: #### P T, PTT #### [address] [address] Sheriff'S Sergeant: Mir Chinchilla MD Anion gap molar conc 9 mmol/L Normal 9-17 [facility] Comment on above: Performed By: #### P T, PTT #### [address] [address] Sheriff'S Sergeant: Mir Chinchilla MD Calcium mass conc 9.0 mg/dL Normal 8.6-10.4 [facility] Comment on above: Performed By: #### P T, PTT #### [address] [address] Sheriff'S Sergeant: Mir Chinchilla MD Chloride molar conc 112 mmol/L High 98-107 [facility] Comment on above: Performed By: #### P T, PTT #### [facility] [address] [place] [address] Sheriff'S Sergeant: Mir Chinchilla MD CO2 molar conc 21 mmol/L Normal 20-31 [facility] Comment on above: Performed By: #### P T, PTT #### [facility] [address] [place] [address] Sheriff'S Sergeant: Mir Chinchilla MD Creatinine mass conc 0.96 mg/dL High 0.50-0.90 [facility] Comment on above: Performed By: #### P T, PTT #### [facility] [address] [place] [address] Sheriff'S Sergeant: Mir Chinchilla MD GFR, Amer >60 Normal >60 [facility] Comment on above: Performed By: #### P T, PTT #### [facility] [address] [place] [address] Sheriff'S Sergeant: Mir Chinchilla MD GFR,non Amer 56 mL/min Low >60 [facility] Comment on above: Performed By: #### P T, PTT #### [facility] [address] [place] [address] Sheriff'S Sergeant: Mir Chinchilla MD Glucose mass conc 246 mg/dL High 70-99 [facility] Comment on above: Performed By: #### P T, PTT #### [facility] [address] [place] [address] Sheriff'S Sergeant: Mir Chinchilla MD Potassium molar conc 4.3 mmol/L Normal 3.7-5.3 [facility] Comment on above: Performed By: #### P T, PTT #### [facility] [address] [place] [address] Sheriff'S Sergeant: Mir Chinchilla MD Sodium molar conc 142 mmol/L Normal 135-144 [facility] Comment on above: Performed By: #### P T, PTT #### [facility] [address] [place] [address] Sheriff'S Sergeant: Mir Chinchilla MD Urea nitrogen mass conc 26 mg/dL High - [facility] Comment on above: Performed By: #### P T, PTT #### [facility] [address] [place] [address] Sheriff'S Sergeant: Mir Chinchilla MD BUN/CRE Ratio NOT REPORTED Normal 07-24 [facility] Comment on above: Performed By: #### P T, PTT #### [facility] [address] [place] [address] Sheriff'S Sergeant: Mir Chinchilla MD Staging: NOT REPORTED Normal [facility] Comment on above: Performed By: #### P T, PTT #### [facility] [address] [place] [address] Sheriff'S Sergeant: Mir Chinchilla MD CBCon 12-27-2018 Erythrocyte distribution width Ratio (RBC) 17.2 % High 11.8-14.4 [facility] Comment on above: Performed By: #### P T, PTT #### [facility] [address] [place] [address] Sheriff'S Sergeant: Mir Chinchilla MD Hematocrit Volume Fraction (Bld) 23.3 % Low 36.3-47.1 [facility] Comment on above: Performed By: #### P T, PTT #### [facility] [address] [place] [address] Sheriff'S Sergeant: Mir Chinchilla MD Hemoglobin mass conc (Bld) 7.5 g/dL Low 11.9-15.1 [facility] Comment on above: Performed By: #### P T, PTT #### [facility] [address] [place] [address] Sheriff'S Sergeant: Mir Chinchilla MD MCH Entitic mass (RBC) 29.2 pg Normal 25.2-33.5 [facility] Comment on above: Performed By: #### P T, PTT #### [address] [address] Sheriff'S Sergeant: Mir Chinchilla MD MCHC mass conc (RBC) 32.2 g/dL Normal 28.4-34.8 [facility] Comment on above: Performed By: #### P T, PTT #### [address] [address] Sheriff'S Sergeant: Mir Chinchilla MD MCV Entitic volume (RBC) 90.7 fL Normal 82.6-102.9 [facility] Comment on above: Performed By: #### P T, PTT #### [address] [address] Sheriff'S Sergeant: Mir Chinchilla MD NRBC Automated 0.0 per 100 WBC Normal 0.0 [facility] Comment on above: Performed By: #### P T, PTT #### [address] [address] Sheriff'S Sergeant: Mir Chinchilla MD Platelet mean volume Entitic volume (Bld) 11.0 fL Normal 8.1-13.5 [facility] Comment on above: Performed By: #### P T, PTT #### [address] [address] Sheriff'S Sergeant: Mir Chinchilla MD Platelets #/vol (Bld) 89 10*3/uL Low 138-453 [facility] Comment on above: Performed By: #### P T, PTT #### [address] [address] Sheriff'S Sergeant: Mir Chinchilla MD RBC #/vol (Bld) 2.57 10*6/uL Low 3.95-5.11 [facility] Comment on above: Performed By: #### P T, PTT #### [address] [address] Sheriff'S Sergeant: Mir Chinchilla MD WBC #/vol (Bld) 8.5 10*3/uL Normal 3.5-11.3 [facility] Comment on above: Performed By: #### P T, PTT #### [address] [address] Sheriff'S Sergeant: Mir Chinchilla MD Erythrocyte distribution width Ratio (RBC) 17.2 % High 11.8-14.4 [facility] Comment on above: Performed By: #### P T, PTT #### [address] [address] Sheriff'S Sergeant: Mir Chinchilla MD Hematocrit Volume Fraction (Bld) 22.4 % Low 36.3-47.1 [facility] Comment on above: Performed By: #### P T, PTT #### [address] [address] Sheriff'S Sergeant: Mir Chinchilla MD Hemoglobin mass conc (Bld) 7.3 g/dL Low 11.9-15.1 [facility] Comment on above: Performed By: #### P T, PTT #### [address] [address] Sheriff'S Sergeant: Mir Chinchilla MD MCH Entitic mass (RBC) 30.2 pg Normal 25.2-33.5 [facility] Comment on above: Performed By: #### P T, PTT #### [address] [address] Sheriff'S Sergeant: Mir Chinchilla MD MCHC mass conc (RBC) 32.6 g/dL Normal 28.4-34.8 [facility] Comment on above: Performed By: #### P T, PTT #### [address] [address] Sheriff'S Sergeant: Mir Chinchilla MD MCV Entitic volume (RBC) 92.6 fL Normal 82.6-102.9 [facility] Comment on above: Performed By: #### P T, PTT #### [address] [address] Sheriff'S Sergeant: Mir Chinchilla MD NRBC Automated 0.0 per 100 WBC Normal 0.0 [facility] Comment on above: Performed By: #### P T, PTT #### [address] [address] Sheriff'S Sergeant: Mir Chinchilla MD Platelet mean volume Entitic volume (Bld) 10.5 fL Normal 8.1-13.5 [facility] Comment on above: Performed By: #### P T, PTT #### [address] [address] Sheriff'S Sergeant: Mir Chinchilla MD Platelets #/vol (Bld) 90 10*3/uL Low 138-453 [facility] Comment on above: Performed By: #### P T, PTT #### [address] [address] Sheriff'S Sergeant: Mir Chinchilla MD RBC #/vol (Bld) 2.42 10*6/uL Low 3.95-5.11 [facility] Comment on above: Performed By: #### P T, PTT #### [address] [address] Sheriff'S Sergeant: Mir Chinchilla MD WBC #/vol (Bld) 8.6 10*3/uL Normal 3.5-11.3 [facility] Comment on above: Performed By: #### P T, PTT #### [address] [place] [address] Sheriff'S Sergeant: Mir Chinchilla MD Calcium, Ionicon 12-27-2018 Calcium mass conc 1.33 mmol/L Normal 1.13-1.33 [facility] Comment on above: Performed By: #### P T, PTT #### [address] [address] Sheriff'S Sergeant: Mir Chinchilla MD Magnesiumon 12-27-2018 Magnesium mass conc 1.7 mg/dL Normal 1.6-2.6 [facility] Comment on above: Performed By: #### P T, PTT #### [facility] [address] [place] [address] Sheriff'S Sergeant: Mir Chinchilla MD APTTon 12-26-2018 aPTT Coag time (Bld) 30.6 s High 20.5-30.5 [facility] Comment on above: Performed By: #### P T, PTT #### [facility] [address] [place] [address] Sheriff'S Sergeant: Mir Chinchilla MD aPTT Coag time (Bld) 42.7 s High 20.5-30.5 [facility] Comment on above: Performed By: #### P T, PTT #### [facility] [address] [place] [address] Sheriff'S Sergeant: Mir Chinchilla MD Basic Metabolic Profon 12-26 (cont.) Normal [facility] Comment on above: Result Comment: Aver age GFR for 70 or more years old: 75 mL/min/1.73sq m Chronic Kidney Disease: <60 mL/min/1.73sq m Kidney failure: <15 mL/min/1.73sq m eGFR calculated using average adult body mass. Additional eGFR calculator available at: http://www.Yohobuy.Splash.FM/multiple_crcl_2012.htm Performed By: #### P T, PTT #### [facility] [address] [place] [address] Sheriff'S Sergeant: Mir Chinchilla MD Anion gap molar conc 10 mmol/L Normal 9-17 [facility] Comment on above: Performed By: #### P T, PTT #### [facility] [address] [place] [address] Sheriff'S Sergeant: Mir Chinchilla MD Calcium mass conc 7.3 mg/dL Low 8.6-10.4 [facility] Comment on above: Performed By: #### P T, PTT #### [facility] [address] [place] [address] Sheriff'S Sergeant: Mir Chinchilla MD Chloride molar conc 113 mmol/L High 98-107 [facility] Comment on above: Performed By: #### P T, PTT #### [address] [address] Sheriff'S Sergeant: Mir Chinchilla MD CO2 molar conc 19 mmol/L Low 20-31 [facility] Comment on above: Performed By: #### P T, PTT #### [address] [address] Sheriff'S Sergeant: Mir Chinchilla MD Creatinine mass conc 0.94 mg/dL High 0.50-0.90 [facility] Comment on above: Performed By: #### P T, PTT #### [facility] [address] [place] [address] Sheriff'S Sergeant: Mir Chinchilla MD GFR, Amer >60 Normal >60 [facility] Comment on above: Performed By: #### P T, PTT #### [facility] [address] [place] [address] Sheriff'S Sergeant: Mir Chinchilla MD GFR,non Amer 57 mL/min Low >60 [facility] Comment on above: Performed By: #### P T, PTT #### [address] [address] Sheriff'S Sergeant: Mir Chinchilla MD Glucose mass conc 212 mg/dL High 70-99 [facility] Comment on above: Performed By: #### P T, PTT #### [address] [address] Sheriff'S Sergeant: Mir Chinchilla MD Potassium molar conc 4.6 mmol/L Normal 3.7-5.3 [facility] Comment on above: Performed By: #### P T, PTT #### [address] [address] Sheriff'S Sergeant: Mir Chinchilla MD Sodium molar conc 142 mmol/L Normal 135-144 [facility] Comment on above: Performed By: #### P T, PTT #### [address] [address] Sheriff'S Sergeant: Mir Chinchilla MD Urea nitrogen mass conc 26 mg/dL High 8-23 [facility] Comment on above: Performed By: #### P T, PTT #### [address] [address] Sheriff'S Sergeant: Mir Chinchilla MD BUN/CRE Ratio NOT REPORTED Normal 9-20 [facility] Comment on above: Performed By: #### P T, PTT #### [address] [address] Sheriff'S Sergeant: Mir Chinchilla MD Staging: NOT REPORTED Normal [facility] Comment on above: Performed By: #### P T, PTT #### [address] [address] Sheriff'S Sergeant: Mir Chinchilla MD CBCon 12-26-2018 Erythrocyte distribution width Ratio (RBC) 16.6 % High 11.8-14.4 [facility] Comment on above: Performed By: #### C BC, PT, PTT, BMP, MG #### [address] [address] Sheriff'S Sergeant: Mir Chinchilla MD Hematocrit Volume Fraction (Bld) 24.5 % Low 36.3-47.1 [facility] Comment on above: Performed By: #### C BC, PT, PTT, BMP, MG #### [address] [address] Sheriff'S Sergeant: Mir Chinchilla MD Hemoglobin mass conc (Bld) 7.8 g/dL Low 11.9-15.1 [facility] Comment on above: Performed By: #### C BC, PT, PTT, BMP, MG #### [address] [address] Sheriff'S Sergeant: Mir Chinchilla MD MCH Entitic mass (RBC) 29.8 pg Normal 25.2-33.5 [facility] Comment on above: Performed By: #### C BC, PT, PTT, BMP, MG #### [address] [address] Sheriff'S Sergeant: Mir Chinchilla MD MCHC mass conc (RBC) 31.8 g/dL Normal 28.4-34.8 [facility] Comment on above: Performed By: #### C BC, PT, PTT, BMP, MG #### [address] [address] Sheriff'S Sergeant: Mir Chinchilla MD MCV Entitic volume (RBC) 93.5 fL Normal 82.6-102.9 [facility] Comment on above: Performed By: #### C BC, PT, PTT, BMP, MG #### [address] [address] Sheriff'S Sergeant: Mir Chinchilla MD NRBC Automated 0.0 per 100 WBC Normal 0.0 [facility] Comment on above: Performed By: #### C BC, PT, PTT, BMP, MG #### [facility] [address] [place] [address] Sheriff'S Sergeant: Mir Chinchilla MD Platelet mean volume Entitic volume (Bld) 10.5 fL Normal 8.1-13.5 [facility] Comment on above: Performed By: #### C BC, PT, PTT, BMP, MG #### [facility] [address] [place] [address] Sheriff'S Sergeant: Mir Chinchilla MD Platelets #/vol (Bld) 81 10*3/uL Low 138-453 [facility] Comment on above: Performed By: #### C BC, PT, PTT, BMP, MG #### [facility] [address] [place] [address] Sheriff'S Sergeant: Mir Chinchilla MD RBC #/vol (Bld) 2.62 10*6/uL Low 3.95-5.11 [facility] Comment on above: Performed By: #### C BC, PT, PTT, BMP, MG #### [address] [address] Sheriff'S Sergeant: Mir Chinchilla MD WBC #/vol (Bld) 13.4 10*3/uL High 3.5-11.3 [facility] Comment on above: Performed By: #### C BC, PT, PTT, BMP, MG #### [facility] [address] [place] [address] Sheriff'S Sergeant: Mir Chinchilla MD Calcium, Ionicon 12-26-2018 Calcium mass conc 1.12 mmol/L Low 1.13-1.33 [facility] Comment on above: Performed By: #### O HP, IOCAL #### [address] [address] Sheriff'S Sergeant: Mir Chinchilla MD Calcium mass conc 1.17 mmol/L Normal 1.13-1.33 [facility] Comment on above: Performed By: #### O HP, IOCAL #### [address] [address] Sheriff'S Sergeant: Mir Chinchilla MD FFP, Transfuseon 12-26-2018 FFP, Transfuse Unit Number [id number] Blood Component Type Fresh Plasma Unit Division 00 Status of Unit TRANSFUSED Transfusion Status OK TO TRANSFUSE Normal [facility] Comment on above: Performed By: #### P T, PTT #### [address] [address] Sheriff'S Sergeant: Mir Chinchilla MD FFP, Transfuse Unit Number [id number] Blood Component Type Fresh Plasma Unit Division 00 Status of Unit TRANSFUSED Transfusion Status OK TO TRANSFUSE Normal [facility] Comment on above: Performed By: #### P T, PTT #### [address] [address] Sheriff'S Sergeant: Mir Chinchilla MD Hgb/Hcton 12-26-2018 Hematocrit Volume Fraction (Bld) 36.3 % Normal 36.3-47.1 [facility] Comment on above: Performed By: #### H H #### [address] [address] Sheriff'S Sergeant: Mir Chinchilla MD Hemoglobin mass conc (Bld) 11.2 g/dL Low 11.9-15.1 [facility] Comment on above: Performed By: #### H H #### [address] [address] Sheriff'S Sergeant: Mir Chinchilla MD Magnesiumon 12-26-2018 Magnesium mass conc 1.6 mg/dL Normal 1.6-2.6 [facility] Comment on above: Performed By: #### P T, PTT #### [address] [address] Sheriff'S Sergeant: Mir Chinchilla MD OPERATIVE REPORTon 9 OPERATIVE REPORT [address] [address] OPERATIVE REPORT PATIENT NAME: JOYCELYN HAMM : 1940 MED REC NO: [id number] ROOM: 1001 ACCOUNT NO: [id number] ADMIT DATE: 12/26/2018 PROVIDER: Tito Yang MD [...] site. ANESTHESIA: General. SURGEON: Tito Yang MD NURSING PROGRAM COORDINATOR: Feliciano Whitfield, PGY-3 ESTIMATED BLOOD LOSS: 3200 mL. PRODUCTS TRANSFUSED: 3 units of packed red blood cells, 2 of FFP, 1 of platelets, 750 mL of Cell Saver, and 1 L of albumin. COMPLICATIONS: None. DRAIN: 19-Vietnamese Gabriele drain placed in the right groin. [...] the Venkatesh's layer with interrupted Vicryl. A 19-Vietnamese Gabriele drain was then brought into through [...] for recovery and monitoring. TITO YANG MD BARBI/[id number] Doc#: [id number] CC: Normal [facility] Open Heart Panelon 9 Toan Test INFORMATION NOT PROVIDED [facility] Comment on above: Performed By: #### O HP, IOCAL #### [address] [address] Sheriff'S Sergeant: Mir Chinchilla MD Body Temp. 35.0 [facility] Comment on above: Performed By: #### O HP, IOCAL #### [facility] [address] [place] [address] Sheriff'S Sergeant: Mir Chinchilla MD Carboxy Hgb 0.3 % Normal 0-5 [facility] Comment on above: Result Comment: Reference Range: Non-Smokers 0-2% Average Smoker 2-4% Heavy Smoker <10% Performed By: #### O HP, IOCAL #### [address] [address] Sheriff'S Sergeant: Mir Chinchilla MD Chloride molar conc 111 mmol/L High 98-110 [facility] Comment on above: Performed By: #### O HP, IOCAL #### [facility] [address] [place] [address] Sheriff'S Sergeant: Mir Chinchilla MD FIO2 80% Normal [facility] Comment on above: Performed By: #### O HP, IOCAL #### [facility] [address] [place] [address] Sheriff'S Sergeant: Mir Chinchilla MD Glucose mass conc 209 mg/dL High 65-105 [facility] Comment on above: Performed By: #### O HP, IOCAL #### [facility] [address] [place] [address] Sheriff'S Sergeant: Mir Chinchilla MD HCO3 molar conc (Bld) 21.4 mmol/L Low 22-27 [facility] Comment on above: Performed By: #### O HP, IOCAL #### [facility] [address] [place] [address] Sheriff'S Sergeant: Mir Chinchilla MD Hematocrit Volume Fraction (Bld) 22.0 % Normal [facility] Comment on above: Performed By: #### O HP, IOCAL #### [facility] [address] [place] [address] Sheriff'S Sergeant: Mir Chinchilla MD Hemoglobin mass conc (Bld) 7.0 g/dL Normal [facility] Comment on above: Performed By: #### O HP, IOCAL #### [facility] [address] [place] [address]13 Sheriff'S Sergeant: Mir Chinchilla MD Negative Base Excess 3.5 mmol/L High 0.0-2.0 [facility] Comment on above: Performed By: #### O HP, IOCAL #### [facility] [address] [place] [address]68 Sheriff'S Sergeant: Mir Chinchilla MD Oxygen ppres (Bld) 274.0 mm[Hg] High 75-95 [facility] Comment on above: Performed By: #### O HP, IOCAL #### [facility] [address] [place] [address] Sheriff'S Sergeant: Mir Chinchilla MD Oxygen saturation in Blood 97.8 % Normal 94-100 [facility] Comment on above: Performed By: #### O HP, IOCAL #### [facility] [address] [place] [address] 8[address]40 Sheriff'S Sergeant: Mir Chinchilla MD pCO2 41.2 mmHg Normal 32-45 [facility] Comment on above: Performed By: #### O HP, IOCAL #### [facility] [address] [place] [address] Sheriff'S Sergeant: Mir Chinchilla MD pCO2 Adj'd for Temp 37.4 Normal 32-45 [facility] Comment on above: Performed By: #### O HP, IOCAL #### [facility] [address] [place] [address]678 Sheriff'S Sergeant: Mir Chinchilla MD pH (Bld) 7.336 [pH] Low 7.350-7.450 [facility] Comment on above: Performed By: #### O HP, IOCAL #### [facility] [address] [place] [address] Sheriff'S Sergeant: Mir Chinchilla MD pH Adjst'd for Temp. 7.364 Normal 7.350-7.450 [facility] Comment on above: Performed By: #### O HP, IOCAL #### [facility] [address] [place] [address] Sheriff'S Sergeant: Mir Chinchilla MD pO2 Adjst'd for Temp 266.0 mmHg High 75-95 [facility] Comment on above: Performed By: #### O HP, IOCAL #### [email or web address] [address] [place] [address] Sheriff'S Sergeant: Mir Chinchilla MD Potassium molar conc 4.1 mmol/L Normal 3.6-5.0 [facility] Comment on above: Performed By: #### O HP, IOCAL #### [facility] [address] [place] [address] Sheriff'S Sergeant: Mir Chinchilla MD Sodium molar conc 140 mmol/L Normal 136-145 [facility] Comment on above: Performed By: #### O HP, IOCAL #### [facility] [address] [place] [address] Sheriff'S Sergeant: Mir Chinchilla MD Methemoglobin NOT REPORTED Normal 0.0-1.5 [facility] Comment on above: Performed By: #### O HP, IOCAL #### [facility] [address] [place] [address] Sheriff'S Sergeant: Mir Chinchilla MD Mode NOT REPORTED Normal [facility] Comment on above: Performed By: #### O HP, IOCAL #### [facility] [address] [place] [address] Sheriff'S Sergeant: Mir Chinchilla MD Notification Time NOT REPORTED Normal [facility] Comment on above: Performed By: #### O HP, IOCAL #### [facility] [address] [place] [address] Sheriff'S Sergeant: Mir Chinchilla MD Notification: NOT REPORTED Normal [facility] Comment on above: Performed By: #### O HP, IOCAL #### [facility] [address] [place] [address] Sheriff'S Sergeant: Mir Chinchilla MD O2 Device/Flow/% NOT REPORTED Normal [facility] Comment on above: Performed By: #### O HP, IOCAL #### [facility] [address] [place] [address] Sheriff'S Sergeant: Mir Chinchilla MD Oxyhemoglobin NOT REPORTED Normal 95.0-98.0 [facility] Comment on above: Performed By: #### O HP, IOCAL #### [facility] [address] [place] [address] Sheriff'S Sergeant: Mir Chinchilla MD PEEP/CPAP NOT REPORTED Normal [facility] Comment on above: Performed By: #### O HP, IOCAL #### [facility] [address] [place] [address] [phone] Sheriff'S Sergeant: Mir Chinchilla MD Positive Base Excess NOT REPORTED Normal 0.0-2.0 [facility] Comment on above: Performed By: #### O HP, IOCAL #### [facility] [address] [place] [address] Sheriff'S Sergeant: Mir Chinchilla MD PSV NOT REPORTED Normal [facility] Comment on above: Performed By: #### O HP, IOCAL #### [facility] [address] [place] [address] Sheriff'S Sergeant: Mir Chinchilla MD Pt. Position NOT REPORTED Normal [facility] Comment on above: Performed By: #### O HP, IOCAL #### [facility] [address] [place] [address] Sheriff'S Sergeant: Mir Chinchilla MD Set Rate NOT REPORTED Normal [facility] Comment on above: Performed By: #### O HP, IOCAL #### [email or web address] [address] [place] [address] Sheriff'S Sergeant: Mir Chinchilla MD Site Drawn NOT REPORTED Normal [facility] Comment on above: Performed By: #### O HP, IOCAL #### [email or web address] [address] [place] [address] Sheriff'S Sergeant: Mir Chinchilla MD Text for Respiratory NOT REPORTED Normal [facility] Comment on above: Performed By: #### O HP, IOCAL #### [email or web address] [address] [place] [address] Sheriff'S Sergeant: Mir Chinchilla MD Total Hb NOT REPORTED Normal 12.0-16.0 [facility] Comment on above: Performed By: #### O HP, IOCAL #### [facility] [address] [place] [address] Sheriff'S Sergeant: Mir Chinchilla MD Total Rate NOT REPORTED Normal [facility] Comment on above: Performed By: #### O HP, IOCAL #### [facility] [address] [place] [address] Sheriff'S Sergeant: Mir Chinchilla MD VT NOT REPORTED Normal [facility] Comment on above: Performed By: #### O HP, IOCAL #### [email or web address] [address] [place] [address] Sheriff'S Sergeant: MD Toan Rodriguez Test INFORMATION NOT PROVIDED Normal [facility] Comment on above: Performed By: #### O HP, IOCAL #### [facility] [address] [place] [address] Sheriff'S Sergeant: Mir Chinchilla MD Body Temp. 35.0 Normal [facility] Comment on above: Performed By: #### O HP, IOCAL #### [email or web address] [address] [place] [address] Sheriff'S Sergeant: Mir Chinchilla MD Carboxy Hgb 1.1 % Normal 0-5 [facility] Comment on above: Result Comment: Reference Range: Non-Smokers 0-2% Average Smoker 2-4% Heavy Smoker <10% Performed By: #### O HP, IOCAL #### [email or web address] [address] [place] [address] Sheriff'S Sergeant: Mir Chinchilla MD Chloride molar conc 116 mmol/L High 98-110 [facility] Comment on above: Performed By: #### O HP, IOCAL #### [email or web address] [address] [place] [address] Sheriff'S Sergeant: Mir Chinchilla MD FIO2 100% Normal [facility] Comment on above: Performed By: #### O HP, IOCAL #### [email or web address] [address] [place] [address] Sheriff'S Sergeant: Mir Chinchilla MD Glucose mass conc 183 mg/dL High 65-105 [facility] Comment on above: Performed By: #### O HP, IOCAL #### [facility] [address] [place] [address] Sheriff'S Sergeant: Mir Chinchilla MD HCO3 molar conc (Bld) 16.8 mmol/L Low 22-27 [facility] Comment on above: Performed By: #### O HP, IOCAL #### [facility] [address] [place] [address] Sheriff'S Sergeant: Mir Chinchilla MD Hematocrit Volume Fraction (Bld) 23.2 % Normal [facility] Comment on above: Performed By: #### O HP, IOCAL #### [facility] [address] [place] [address] Sheriff'S Sergeant: Mir Chinchilla MD Hemoglobin mass conc (Bld) 7.4 g/dL Normal [facility] Comment on above: Performed By: #### O HP, IOCAL #### [facility] [address] [place] [address] Sheriff'S Sergeant: Mir Chinchilla MD Negative Base Excess 7.4 mmol/L High 0.0-2.0 [facility] Comment on above: Performed By: #### O HP, IOCAL #### [facility] [address] [place] [address] Sheriff'S Sergeant: Mir Chinchilla MD Oxygen ppres (Bld) 335.0 mm[Hg] High 75-95 [facility] Comment on above: Performed By: #### O HP, IOCAL #### [facility] [address] [place] [address] Sheriff'S Sergeant: Mir Chinchilla MD Oxygen saturation in Blood 99.4 % Normal 94-100 [facility] Comment on above: Performed By: #### O HP, IOCAL #### [facility] [address] [place] [address] Sheriff'S Sergeant: Mir Chinchilla MD pCO2 30.4 mmHg Low 32-45 [facility] Comment on above: Performed By: #### O HP, IOCAL #### [facility] [address] [place] [address] Sheriff'S Sergeant: Mir Chinchilla MD pCO2 Adj'd for Temp 27.6 Low 32-45 [facility] Comment on above: Performed By: #### O HP, IOCAL #### [facility] [address] [place] [address] Sheriff'S Sergeant: Mir Chinchilla MD pH (Bld) 7.362 [pH] Normal 7.350-7.450 [facility] Comment on above: Performed By: #### O HP, IOCAL #### [facility] [place] [address] [place] [address] Sheriff'S Sergeant: Mir Chinchilla MD pH Adjst'd for Temp. 7.390 Normal 7.350-7.450 [facility] Comment on above: Performed By: #### O HP, IOCAL #### [facility] [address] [place] [address] Sheriff'S Sergeant: Mir Chinchilla MD pO2 Adjst'd for Temp 326.0 mmHg High 75-95 [facility] Comment on above: Performed By: #### O HP, IOCAL #### [facility] [address] [place] [address] Sheriff'S Sergeant: Mir Chinchilla MD Potassium molar conc 3.2 mmol/L Low 3.6-5.0 [facility] Comment on above: Performed By: #### O HP, IOCAL #### [facility] [address] [place] [address]72 Sheriff'S Sergeant: Mir Chinchilla MD Sodium molar conc 140 mmol/L Normal 136-145 [facility] Comment on above: Performed By: #### O HP, IOCAL #### [facility] [place] [address] [place] [address] Sheriff'S Sergeant: Mir Chinchilla MD PTon 12-26-2018 INR Coag RelTime (PPP) 1.2 {INR} Normal [facility] Comment on above: Result Comment: Therapeutic Range: Moderate Anticoagulant Intensity: INR = 2.0-3.0 High Anticoagulant Intensity: INR = 2.5-3.5 Performed By: #### C BC, PT, PTT, BMP, MG #### [address] [address] Sheriff'S Sergeant: Mir Chinchilla MD Prothrombin time (PT) Coag time (PPP) 12.3 s High 9.0-12.0 [facility] Comment on above: Performed By: #### C BC, PT, PTT, BMP, MG #### [address] [id number] Sheriff'S Sergeant: Mir Chinchilla MD INR Coag RelTime (PPP) 1.0 {INR} Normal [facility] Comment on above: Result Comment: Therapeutic Range: Moderate Anticoagulant Intensity: INR = 2.0-3.0 High Anticoagulant Intensity: INR = 2.5-3.5 Performed By: #### P T, PTT #### [address] [address] Sheriff'S Sergeant: Mir Chinchilla MD Prothrombin time (PT) Coag time (PPP) 11.0 s Normal 9.0-12.0 [facility] Comment on above: Performed By: #### P T, PTT #### [address] [id number] Sheriff'S Sergeant: Mir Chinchilla MD Platelets,Transfuseon 2018 Platelets,Transfuse Unit Number [id number] Blood Component Type Leukocyte Reduced Irradiated Plateletpheresis Unit Division 00 Status of Unit TRANSFUSED Transfusion Status OK TO TRANSFUSE Normal [facility] Comment on above: Performed By: #### P T, PTT #### [address] [place] [address] Sheriff'S Sergeant: Mir Chinchilla MD Type + Screenon 12-26-2018 Type + Screen Sample Expiration 12/29/2018 Arm Band Number [id number] ABO/Rh(D) O POSITIVE Antibody Screen NEGATIVE Unit Number [id number] Blood Component Type Leukocyte Reduced Red Cell Unit Division 00 Status of Unit TRANSFUSED Transfusion Status OK TO TRANSFUSE Crossmatch Result COMPATIBLE Unit Number [id number] Blood Component Type Leukocyte Reduced Red Cell Unit Division 00 Status of Unit TRANSFUSED Transfusion Status OK TO TRANSFUSE Crossmatch Result COMPATIBLE Unit Number [id number] Blood Component Type Leukocyte Reduced Red Cell Unit Division 00 Status of Unit TRANSFUSED Transfusion Status OK TO TRANSFUSE Crossmatch Result COMPATIBLE Unit Number [id number] Blood Component Type Leukocyte Reduced Red Cell Unit Division 00 Status of Unit TRANSFUSED Transfusion Status OK TO TRANSFUSE Crossmatch Result COMPATIBLE Normal [facility] Comment on above: Performed By: #### T YS #### [email or web address] [place] [address] Sheriff'S Sergeant: Mir Chinchilla MD XR CHEST PORTABLEon 12-26-19 XR CHEST PORTABLE EXAMINATION: SINGLE XRAY VIEW [...] Chaz Mac MD 12/26/18 Final result Normal [facility] PRO BNP NTon 07-18-2018 Natriuretic peptide B mass conc (Bld) 823.20 pg/mL High <300 [facility] Comment on above: Result Comment: NOTE : AGE CONGESTIVE HEART FAILURE LIKELY <50 YEARS > 450 pg/mL 50-75 YEARS > 900 pg/mL >75 YEARS >1800 pg/mLSynercon Technologiesology [facility] [address] [place], [place] [address]Laboratory Director: Marlon Betts M.D.CLIA No. [id number] CAP Accreditation No. [id number] BASIC METABOLIC PANEL WITH G FRon 07-16-2018 Anion gap 3 molar conc 13 mmol/L Normal 10-19 [facility] Calcium mass conc 9.4 mg/dL Normal 8.5-10.5 [facility] Chloride molar conc 109 mmol/L High 95-107 [facility] CO2 molar conc 21 mmol/L Normal 19-31 [facility] Creatinine mass conc 1.3 mg/dL Normal 0.6-1.3 [facility] GFR/1.73 sq M predicted among blacks MDRD vol rate/area (S/P/Bld) 45.2 mL/min/1.73 m2 Low >59 [facility] GFR/1.73 sq M predicted among non-blacks MDRD vol rate/area (S/P/Bld) 39.0 mL/min/1.73 m2 Low >59 [employer] Comment on above: Result Comment: * [...] Glucose mass conc 181 mg/dL High 70-99 [employer] [facility] [facility] Comment on above: Result Comment: DIAG NOSTIC THRESHOLDS FOR DIABETES AND IMPAIRED FASTING GLUCOSE (IFG) FASTING PLASMA GLUCOSE NORMAL <100 mg/dL IFG 100-125 mg/dL DIABETES >/= 126 mg/dL GESTATIONAL DIABETES >/= 92 mg/dL Potassium molar conc 5.0 mmol/L Normal 3.5-5.4 [facility] Sodium molar conc 143 mmol/L Normal 135-146 [facility] Urea nitrogen mass conc 39 mg/dL High 8-23 [facility] Vital Signs Date Time Vital Sign Value Performing Clinician Facility 02-09-2025 14:09-0400 Heart rate 67 /min Danay Hebert MD Work Phone: [facility] 02-09-2025 14:09-0400 Respiratory rate 16 /min Danay Hebert MD Work Phone: [facility] 02-09-2025 14:09-0400 SaO2% (BldA) [Mass fraction] 95 % Danay Hebert MD Work Phone: [facility] 02-04-2025 13:59-0400 Body height 172.7 cm Jahaira Itzkowitz DO Work Phone: [facility] 02-04-2025 13:59-0400 Body mass index (BMI) [Ratio] 49.42 kg/m2 Jahaira Itzkowitz DO Work Phone: [facility] 02-04-2025 13:59-0400 Body weight 147.42 kg Jahaira Itzkowitz DO Work Phone: [facility] 11-26-2024 10:13-0500 Body height 172.7 cm Chaya Bass EXCELSIOR MACHINE FEEDER Work Phone: [facility] 11-26-2024 10:13-0500 Body mass index (BMI) [Ratio] 50.18 kg/m2 Chaya Bass EXCELSIOR MACHINE FEEDER Work Phone: [facility] 11-26-2024 10:13-0500 Body weight 149.69 kg Chaya Pimentelr EXCELSIOR MACHINE FEEDER Work Phone: [facility] 11-26-2024 10:13-0500 Diastolic blood pressure 82 mm[Hg] Chaya Bass EXCELSIOR MACHINE FEEDER Work Phone: [facility] 11-26-2024 10:13-0500 Heart rate 77 /min Chaya Bass EXCELSIOR MACHINE FEEDER Work Phone: [facility] 11-26-2024 10:13-0500 SaO2% (BldA) [Mass fraction] 94 % Chaya Geenamor EXCELSIOR MACHINE FEEDER Work Phone: [facility] 11-26-2024 10:13-0500 Systolic blood pressure 124 mm[Hg] Chaya Geneamor EXCELSIOR MACHINE FEEDER Work Phone: [facility] 10-13-2024 14:50-0500 Body height 172.7 cm Danay Hebert MD Work Phone: [facility] 10-13-2024 14:50-0500 Body mass index (BMI) [Ratio] 47.44 kg/m2 Danay Hebert MD Work Phone: [facility] 10-13-2024 14:50-0500 Body weight 141.52 kg Danay Hebert MD Work Phone: [facility] 10-13-2024 14:50-0500 Diastolic blood pressure 78 mm[Hg] Danay Hebert MD Work Phone: [facility] 10-13-2024 14:50-0500 Heart rate 73 /min Danay Hebert MD Work Phone: [facility] 10-13-2024 14:50-0500 Respiratory rate 16 /min Danay Hebert MD Work Phone: [facility] 10-13-2024 14:50-0500 Systolic blood pressure 120 mm[Hg] Danay Hebert MD Work Phone: [facility] 09-03-2024 08:16-0400 Body height 170.2 cm Chaya Seaymor EXCELSIOR MACHINE FEEDER Work Phone: [facility] 09-03-2024 08:16-0400 Diastolic blood pressure 80 mm[Hg] Chaya Gillmor EXCELSIOR MACHINE FEEDER Work Phone: [facility] 09-03-2024 08:16-0400 Systolic blood pressure 138 mm[Hg] Chaya Gillmor EXCELSIOR MACHINE FEEDER Work Phone: [facility] 07-09-2024 11:19-0400 Body height 172.7 cm Nick Styles APRN-PLANER OPERATOR Work Phone: [facility] 07-09-2024 11:19-0400 Body mass index (BMI) [Ratio] 49.43 kg/m2 Nick Styles APRN-PLANER OPERATOR Work Phone: [facility] 07-09-2024 11:19-0400 Body temperature 97.2 [degF] Nick Styles APRN-PLANER OPERATOR Work Phone: [facility] 07-09-2024 11:19-0400 Body weight 147.42 kg Nick Styles APRN-PLANER OPERATOR Work Phone: [facility] 07-09-2024 11:19-0400 Diastolic blood pressure 77 mm[Hg] Nick Styles APRN-PLANER OPERATOR Work Phone: [facility] 07-09-2024 11:19-0400 Heart rate 77 /min Nick Styles APRN-PLANER OPERATOR Work Phone: [facility] 07-09-2024 11:19-0400 SaO2% (BldA) [Mass fraction] 95 % Nick Styles APRN-PLANER OPERATOR Work Phone: [facility] 07-09-2024 11:19-0400 Systolic blood pressure 120 mm[Hg] Nick Styles APRN-PLANER OPERATOR Work Phone: [facility] 03-17-2024 15:39-0400 Body height 172.7 cm Cari Carpio CHIEF SCIENTIST-PNEUMATIC TUBE OPERATOR Work Phone: [facility] 03-17-2024 15:39-0400 Body mass index (BMI) [Ratio] 48.81 kg/m2 Cari Carpio CHIEF SCIENTIST-PNEUMATIC TUBE OPERATOR Work Phone: [facility] 03-17-2024 15:39-0400 Body temperature 98.91 [degF] Cari Carpio APRN-PNEUMATIC TUBE OPERATOR Work Phone: [facility] 03-17-2024 15:39-0400 Body weight 145.6 kg Cari Carpio APRNChanelPNEUMATIC TUBE OPERATOR Work Phone: [facility] [employer] [facility] 03-17-2024 15:39-0400 Diastolic blood pressure 78 mm[Hg] Cari Carpio APRN-PNEUMATIC TUBE OPERATOR Work Phone: [facility] [employer] [facility] 03-17-2024 15:39-0400 Heart rate 86 /min Cari Carpio APRN-PNEUMATIC TUBE OPERATOR Work Phone: [facility] 03-17-2024 15:39-0400 SaO2% (BldA) [Mass fraction] 98 % Cari Carpio APRN-PNEUMATIC TUBE OPERATOR Work Phone: [facility] 03-17-2024 15:39-0400 Systolic blood pressure 120 mm[Hg] Cari Carpio APRN-PNEUMATIC TUBE OPERATOR Work Phone: [facility] 01-23-2024 07:55-0400 Body height 172.7 cm Cari Caprio CHIEF SCIENTIST-PNEUMATIC TUBE OPERATOR Work Phone: [facility] [employer] [facility] 01-23-2024 07:55-0400 Body mass index (BMI) [Ratio] 47.44 kg/m2 Cari Carpio APRN-PNEUMATIC TUBE OPERATOR Work Phone: [facility] [employer] [facility] 01-23-2024 07:55-0400 Body temperature 97.5 [degF] Cari CINTRONPNEUMATIC TUBE OPERATOR Work Phone: [facility] 01-23-2024 07:55-0400 Body weight 141.52 kg Cari Carpio APRN-PNEUMATIC TUBE OPERATOR Work Phone: [facility] [employer] [facility] 01-23-2024 07:55-0400 Diastolic blood pressure 64 mm[Hg] Cari Carpio APRN-PNEUMATIC TUBE OPERATOR Work Phone: [facility] 01-23-2024 07:55-0400 Heart rate 79 /min Cari Carpio APRN-PNEUMATIC TUBE OPERATOR Work Phone: [facility] 01-23-2024 07:55-0400 Respiratory rate 18 /min Cari CINTRONPNEUMATIC TUBE OPERATOR Work Phone: [facility] [employer] [facility] 01-23-2024 07:55-0400 SaO2% (BldA) [Mass fraction] 95 % Cari CINTRONPNEUMATIC TUBE OPERATOR Work Phone: [facility] [employer] [facility] 01-23-2024 07:55-0400 Systolic blood pressure 120 mm[Hg] Cari CINTRONPNEUMATIC TUBE OPERATOR Work Phone: [facility] [employer] [facility] 01-09-2024 10:49-0500 Body height 172.7 cm Cari Carpio APRN-PNEUMATIC TUBE OPERATOR Work Phone: [facility] [employer] [facility] 01-09-2024 10:49-0500 Body mass index (BMI) [Ratio] 47.23 kg/m2 Cari Carpio APRN-PNEUMATIC TUBE OPERATOR Work Phone: [facility] [employer] [facility] 01-09-2024 10:49-0500 Body temperature 97.9 [degF] Cari Carpio APRN-PNEUMATIC TUBE OPERATOR Work Phone: [facility] [employer] [facility] 01-09-2024 10:49-0500 Body weight 140.89 kg Cari CINTRONPNEUMATIC TUBE OPERATOR Work Phone: [facility] [employer] [facility] 01-09-2024 10:49-0500 Diastolic blood pressure 72 mm[Hg] Cari CINTORNPNEUMATIC TUBE OPERATOR Work Phone: [facility] [employer] [facility] 01-09-2024 10:49-0500 Heart rate 72 /min Cari CINTRONPNEUMATIC TUBE OPERATOR Work Phone: [facility] [employer] [facility] 01-09-2024 10:49-0500 SaO2% (BldA) [Mass fraction] 94 % Cari CINTRONPNEUMATIC TUBE OPERATOR Work Phone: [facility] [employer] [facility] 01-09-2024 10:49-0500 Systolic blood pressure 130 mm[Hg] Cari Carpio APRN-PNEUMATIC TUBE OPERATOR Work Phone: [facility] [employer] [facility] 11-01-2023 12:15-0500 Body height 172.7 cm Jered Celestin MD Work Phone: [employer] 11-01-2023 12:15-0500 Body mass index (BMI) [Ratio] 47.9 kg/m2 Jered Celestin MD Work Phone: [employer] 11-01-2023 12:15-0500 Body weight 142.88 kg Jered Celestin MD Work Phone: [employer] 11-01-2023 12:15-0500 Diastolic blood pressure 64 mm[Hg] Jered Celestin MD Work Phone: [employer] 11-01-2023 12:15-0500 Heart rate 87 /min Jered Celestin MD Work Phone: [employer] 11-01-2023 12:15-0500 Respiratory rate 18 /min Jered Celestin MD Work Phone: [employer] 11-01-2023 12:15-0500 SaO2% (BldA) [Mass fraction] 93 % Jered Celestin MD Work Phone: [employer] 11-01-2023 12:15-0500 Systolic blood pressure 132 mm[Hg] Jered Celestin MD Work Phone: [employer] 10-09-2023 16:30-0500 Body height 165.1 cm Evita Baker Other [employer] Other 10-09-2023 16:30-0500 Body mass index (BMI) [Ratio] 51.58 kg/m2 Evita Baker Other [employer] Other 10-09-2023 16:30-0500 Body temperature 98.2 [degF] Evita Baker Other [employer] Other 10-09-2023 16:30-0500 Body weight 140.62 kg Evita Baker Other [employer] Other 10-09-2023 16:30-0500 Respiratory rate 18 /min Evita Baker Other [employer] Other 10-09-2023 16:30-0500 SaO2% (BldA) [Mass fraction] 94 % Evita Baker Other [employer] Other 08-02-2022 11:00-0400 Body height 165.1 cm Kwameaugustine Gonzalez Other [employer] Other 08-02-2022 11:00-0400 Body temperature 97 [degF] Kwameal Nataban Other [employer] Other 08-02-2022 11:00-0400 Diastolic blood pressure 70 mm[Hg] Kamal Chaban Other [employer] Other 08-02-2022 11:00-0400 Respiratory rate 20 /min Kwameal Chaban Other [employer] Other 08-02-2022 11:00-0400 SaO2% (BldA) [Mass fraction] 96 % Kamal Chaban Other [employer] Other 08-02-2022 11:00-0400 Systolic blood pressure 128 mm[Hg] Kamal Chaban Other [employer] Other 04-12-2022 11:00-0400 Body height 165.1 cm Kamal Chaban Other [employer] Other 04-12-2022 11:00-0400 Body mass index (BMI) [Ratio] 51.58 kg/m2 Danyel Gonzalez Other [employer] Other 04-12-2022 11:00-0400 Body temperature 98.2 [degF] Danyel Peaceban Other [employer] Other 04-12-2022 11:00-0400 Body weight 140.62 kg Danyel Peaceban Other [employer] Other 04-12-2022 11:00-0400 Diastolic blood pressure 70 mm[Hg] Danyel Peaceban Other [employer] Other 04-12-2022 11:00-0400 Respiratory rate 20 /min Danyel Peaceban Other [employer] Other 04-12-2022 11:00-0400 SaO2% (BldA) [Mass fraction] 93 % Danyel Gonzalez Other [employer] Other 04-12-2022 11:00-0400 Systolic blood pressure 126 mm[Hg] Danyel Gonzalez Other [employer] Other 02-01-2022 10:30-0400 Body height 165.1 cm Danyel Peaceban Other [employer] Other 02-01-2022 10:30-0400 Body mass index (BMI) [Ratio] 51.75 kg/m2 Danyel Peaceban Other [employer] Other 02-01-2022 10:30-0400 Body temperature 98 [degF] Danyel Peaceban Other [employer] Other 02-01-2022 10:30-0400 Body weight 141.07 kg Danyel Gonzalez Other [employer] Other 02-01-2022 10:30-0400 Diastolic blood pressure 76 mm[Hg] Danyel Peaceban Other [employer] Other 02-01-2022 10:30-0400 Respiratory rate 20 /min Danyel Peaceban Other [employer] Other 02-01-2022 10:30-0400 SaO2% (BldA) [Mass fraction] Danyel Peaceban Other [employer] Other 02-01-2022 10:30-0400 Systolic blood pressure 132 mm[Hg] Danyel Peaceban Other [employer] Other 01-03-2022 11:30-0500 Body height 165.1 cm Danyel Gonzalez Other [employer] Other 01-03-2022 11:30-0500 Body mass index (BMI) [Ratio] 52.08 kg/m2 Danyel Gonzalez Other [employer] Other 01-03-2022 11:30-0500 Body temperature 98.2 [degF] Danyel Peaceban Other [employer] Other 01-03-2022 11:30-0500 Body weight 141.98 kg Danyel Peaceban Other [employer] Other 01-03-2022 11:30-0500 Diastolic blood pressure 66 mm[Hg] Danyel Peaceban Other [employer] Other 01-03-2022 11:30-0500 Respiratory rate 20 /min Danyel Gonzalez Other [employer] Other 01-03-2022 11:30-0500 SaO2% (BldA) [Mass fraction] Danyel Gonzalez Other [employer] Other 01-03-2022 11:30-0500 Systolic blood pressure 114 mm[Hg] Danyel Gonzalez Other [employer] Other 12-26-2018 20:48-0500 Respiratory rate NOT REPORTED [facility] Comment on above: Performed By: #### OHP, IOCAL #### [email or web address] [address], [place] [address] Sheriff'S Sergeant: Mir Chinchilla MD Encounters Encounter Date Encounter Type Care Provider Facility Start: 02-11-2025 End: 02-11-2025 ambulatory Carmen Smith EXCELSIOR MACHINE FEEDER-C Work Phone: [facility] Work Phone: Start: 02-11-2025 End: 02-11-2025 Patient encounter procedure Carmen Smith EXCELSIOR MACHINE FEEDER-C Work Phone: [facility] Work Phone: Start: 02-09-2025 End: 02-09-2025 Office outpatient visit 25 minutes Danay Hebert MD Work Phone: [facility] Comment on above: Type 2 diabetes kallie itus with hyperglycemia, with long-term current use of insulin (CMS/HCC) (Primary Dx); Insulin long-term use (CMS/HCC); Primary hypertension (CMS/HCC); Encounter for dietary consultation; Hyperlipemia, mixed (CMS/HCC); Stage 3b chronic kidney disease (HCC) (CMS/HCC); Class 3 severe obesity due to excess calories with serious comorbidity and body mass index (BMI) of 45.0 to 49.9 in adult Start: 02-09-2025 End: 02-09-2025 ambulatory DANAY HEBERT Not Available Start: 02-04-2025 End: 02-04-2025 Office outpatient new 60 minutes Jahaira Alireza Graciela DO Work Phone: [facility] Comment on above: Abnormal mammogram Start: 02-04-2025 End: 02-04-2025 ambulatory JAHAIRA Alireza OSVALDOANNMIL Not Available Start: 11-26-2024 End: 11-26-2024 Bamboo flowsheet Chaya Bass EXCELSIOR MACHINE FEEDER Work Phone: [facility] Start: 11-26-2024 End: 11-26-2024 Bamboo flowsheet Chaya Bass EXCELSIOR MACHINE FEEDER Work Phone: [facility] Start: 11-26-2024 End: 11-26-2024 Office outpatient visit 25 minutes Chaya Bass EXCELSIOR MACHINE FEEDER Work Phone: [facility] Comment on above: DESTINY (obstructive sle ep apnea) (Primary Dx); RLS (restless legs syndrome); Morbid obesity (CMS/HCC); Hypersomnia Start: 11-26-2024 End: 11-26-2024 ambulatory CHAYA BASS Not Available Start: 10-22-2024 End: 10-22-2024 ambulatory CARMEN SMITH Not Available Start: 10-22-2024 End: 10-22-2024 Bamboo flowsheet Carmen Smith EXCELSIOR MACHINE FEEDER Work Phone: [facility] Start: 10-22-2024 End: 10-22-2024 Bamboo flowsheet Carmen Smith EXCELSIOR MACHINE FEEDER Work Phone: [facility] Start: 10-22-2024 End: 10-22-2024 Patient encounter procedure Carmen Smith EXCELSIOR MACHINE FEEDER Work Phone: [facility] Comment on above: Medicare annual [facility] visit, subsequent (Primary Dx); Diabetic peripheral neuropathy (CMS/HCC); Disorder of nervous system due to type 2 diabetes mellitus (CMS/HCC); DESTINY (obstructive sleep apnea); PLMD (periodic limb movement disorder); Polyneuropathy; Restless legs; Essential hypertension (CMS/HCC); Venous insufficiency; Atrial enlargement, bilateral; Benign hypertensive heart disease without congestive heart failure (CMS/HCC); Bradycardia; LVH (left ventricular hypertrophy); Nonrheumatic mitral valve regurgitation; PAF (paroxysmal atrial fibrillation) (CMS/HCC); Pulmonary hypertension (CMS/HCC); Paroxysmal atrial fibrillation (CMS/HCC); Pain in both feet; Bilateral leg edema; Degeneration of intervertebral disc of lumbar region with discogenic back pain; Primary osteoarthritis of both knees; Lymphedema of lower extremity; Acquired hypothyroidism (CMS/HCC); Morbid obesity (CMS/HCC); Stage 3 chronic kidney disease due to type 2 diabetes mellitus (HCC) (CMS/HCC); Vitamin D deficiency; Pure hypercholesterolemia (CMS/HCC); Mild depression (CMS/HCC) Start: 10-20-2024 End: 10-21-2024 Telephone encounter Danay Hebert MD Work Phone: [facility] Comment on above: Med Refill Start: 10-19-2024 End: 10-19-2024 Patient encounter procedure Silva Sanders DPM Work Phone: [facility] Comment on above: Onychomycosis (Prima ry Dx); 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 (CMS/HCC); Healed foot ulcer Start: 10-19-2024 End: 10-19-2024 ambulatory SILVA SANDERS Not Available Start: 10-19-2024 End: 10-19-2024 Bamboo flowsheet Silva Sanders DPM Work Phone: [facility] Start: 10-19-2024 End: 10-19-2024 Bamboo flowsheet Silva Sanders DPM Work Phone: [facility] Start: 10-13-2024 End: 10-13-2024 Office outpatient visit 25 minutes Danay Hebert MD Work Phone: [facility] Comment on above: Type 2 diabetes kallie itus with hyperglycemia, with long-term current use of insulin (CMS/HCC) (Primary Dx); Insulin long-term use (CMS/HCC); Primary hypertension (CMS/HCC); Encounter for dietary consultation; Hyperlipemia, mixed ([facility]); Stage 3b chronic kidney disease (HCC) ([facility]); Class 3 severe obesity due to excess calories with serious comorbidity and body mass index (BMI) of 45.0 to 49.9 in adult ([facility]/HCC) Start: 10-13-2024 End: 10-13-2024 ambulatory DANAY HEBERT Not Available Start: 10-13-2024 End: 10-13-2024 Bamboo flowsheet Danay Hebert MD Work Phone: [facility] Start: 10-13-2024 End: 10-13-2024 Bamboo flowsheet Danay Hebert MD Work Phone: [facility] Start: 09-15-2024 End: 09-15-2024 Bamboo flowsheet Silva Sanders DPM Work Phone: [facility] Start: 09-15-2024 End: 09-15-2024 Bamboo flowsheet Silva Sanders DPM Work Phone: [facility] Start: 09-15-2024 End: 09-15-2024 Office outpatient visit 15 minutes Silva Sanders DPM Work Phone: [facility] Comment on above: Onychomycosis (Prima ry Dx); 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 ([facility]); Pain in both feet; Healed foot ulcer Start: 09-15-2024 End: 09-15-2024 ambulatory SILVA SANDERS Not Available Start: 09-03-2024 End: 09-03-2024 Bamboo flowsheet Chaya Bass EXCELSIOR MACHINE FEEDER Work Phone: [facility] Start: 09-03-2024 End: 09-03-2024 Bamboo flowsheet Chaya Bass EXCELSIOR MACHINE FEEDER Work Phone: [facility] Start: 09-03-2024 End: 09-03-2024 Office outpatient visit 25 minutes Chaya Bass NP Work Phone: [facility] Comment on above: DESTINY (obstructive sle ep apnea) (Primary Dx); Hypoxia; Hypersomnia; RLS (restless legs syndrome); PLMD (periodic limb movement disorder); Morbid obesity (CMS/HCC); Atrial fibrillation, unspecified type (CMS/HCC) Start: 09-03-2024 End: 09-03-2024 ambulatory CHAYA BASS Not Available Start: 08-11-2024 End: 08-11-2024 ambulatory [facility] Start: 07-23-2024 End: 07-24-2024 Telephone encounter Mary Bruno [facility] - [facility] Start: 07-21-2024 ambulatory [facility] Facility :[facility] Start: 07-18-2024 End: 07-23-2024 [facility] Start: 07-17-2024 End: 07-23-2024 ambulatory [facility] Facility:[facility] Start: 07-15-2024 End: 07-17-2024 Refill Nick L Stephani CHIEF SCIENTIST-PLANER OPERATOR [facility] Comment on above: Polyneuropathy Start: 07-15-2024 End: 07-17-2024 Refill Dulce Maria Ashutosh [facility] Comment on above: Gouty arthropathy; Mixed hyperlipidemia Start: 07-13-2024 End: 07-13-2024 Emergency department patient visit [facility] Start: 07-10-2024 End: 07-10-2024 ambulatory Nick L Stephani CHIEF SCIENTIST-PLANER OPERATOR [facility] Start: 07-09-2024 End: 07-09-2024 ambulatory [facility] Start: 07-09-2024 End: 07-09-2024 Office outpatient visit 25 minutes Nick L Stephani CHIEF SCIENTIST-PLANER OPERATOR [facility] Phone[facility] Comment on above: Urge incontinence of urine (Primary Dx); Degeneration of lumbar intervertebral disc; Polyneuropathy; PAF (paroxysmal atrial fibrillation) ([facility]); Type 2 diabetes mellitus with stage 3a chronic kidney disease, with long-term current use of insulin ([facility]); Acquired hypothyroidism; Pulmonary hypertension ([facility]); Morbid obesity ([facility]); Ulcer of abdomen wall, limited to breakdown of skin ([facility]); Abnormality of right breast on screening mammogram Start: 07-09-2024 End: 07-09-2024 ambulatory [facility] Start: 07-08-2024 End: 07-14-2024 Telephone encounter Mary Bruno [facility] Start: 06-26-2024 End: 06-26-2024 ambulatory Chad Mo Facility:[facility] Start: 06-25-2024 End: 06-25-2024 Orders Only Nick Styles CHIEF SCIENTIST-PLANER OPERATOR Work Phone: [facility] Comment on above: Abnormality of right breast on screening mammogram (Primary Dx) Start: 06-24-2024 End: 06-29-2024 [facility] Start: 06-22-2024 End: 06-22-2024 Orders Only Nick Styles CHIEF SCIENTIST-PLANER OPERATOR Work Phone: [facility] Comment on above: Gouty arthropathy; Mixed hyperlipidemia Start: 06-17-2024 End: 06-17-2024 Orders Only Nick Styles CHIEF SCIENTIST-PLANER OPERATOR Work Phone: [facility] Comment on above: Polyneuropathy Start: 06-16-2024 End: 06-17-2024 Telephone encounter Nick Styles CHIEF SCIENTIST-PLANER OPERATOR [facility] Start: 06-15-2024 End: 06-15-2024 Telephone encounter Jyoti Hernandez [facility] Start: 06-12-2024 End: 06-12-2024 ambulatory Ramiro Corona Facility:[facility] Start: 06-11-2024 End: 06-11-2024 Telephone encounter Jyoti David [facility] Start: 06-10-2024 End: 06-10-2024 Patient encounter procedure PNEUMATIC TUBE OPERATOR Nick Styles Work Phone: [facility] Work Phone: Start: 06-10-2024 End: 06-10-2024 ambulatory PNEUMATIC TUBE OPERATOR Nick Stephani Work Phone: [facility] Work Phone: Start: 06-10-2024 End: 06-10-2024 ambulatory SILVA SANDERS Not Available Start: 06-05-2024 End: 06-05-2024 ambulatory Ramiro R Dolce Facility:[facility] Start: 05-27-2024 End: 05-27-2024 ambulatory Ramiro R Dolce Facility:[facility] Start: 05-25-2024 End: 05-25-2024 Orders Only Nick Styles CHIEF SCIENTIST-PLANER OPERATOR Work Phone: [facility] Start: 05-22-2024 End: 05-25-2024 Refill Nick Styles CHIEF SCIENTIST-PLANER OPERATOR Work Phone: [facility] Comment on above: Polyneuropathy Start: 05-22-2024 End: 05-22-2024 ambulatory Ramiro R Dolce Facility:[facility] Start: 05-20-2024 End: 05-20-2024 Telephone encounter Nick Styles CHIEF SCIENTIST-PLANER OPERATOR [facility] Phone: [facility] Comment on above: Mass of right breast , unspecified quadrant (Primary Dx) Start: 05-19-2024 End: 05-19-2024 ambulatory NICK STYLES [facility] Start: 05-15-2024 End: 05-15-2024 ambulatory Ramiro R Dolce Facility:[facility] Start: 05-06-2024 End: 05-06-2024 [facility] Start: 04-30-2024 End: 04-30-2024 Orders Only Nick Styles CHIEF SCIENTIST-PLANER OPERATOR Work Phone: [facility] Start: 04-28-2024 End: 04-28-2024 Orders Only Nick Bob Stephani CHIEF SCIENTIST-PLANER OPERATOR Work Phone: [facility] Comment on above: Abnormal mammogram o f right breast (Primary Dx) Start: 04-27-2024 End: 04-30-2024 Refill Cari Carpio CHIEF SCIENTIST-PNEUMATIC TUBE OPERATOR Work Phone: [facility] Comment on above: Polyneuropathy Start: 04-21-2024 End: 04-21-2024 Orders Only Nick L Stephani CHIEF SCIENTIST-PLANER OPERATOR Work Phone: [facility] Comment on above: Abnormality of right breast on screening mammogram (Primary Dx) Start: 04-20-2024 ambulatory [facility] Start: 04-16-2024 End: 04-16-2024 ambulatory [facility] Start: 03-18-2024 End: 03-18-2024 ambulatory SILVA SANDERS Not Available Start: 03-17-2024 End: 03-17-2024 Office outpatient visit 15 minutes Cari Carpio CHIEF SCIENTIST-PNEUMATIC TUBE OPERATOR Work Phone: [facility] Comment on above: Tendonitis of should er, left (Primary Dx); Encounter for screening mammogram for malignant neoplasm of breast Start: 03-17-2024 End: 03-17-2024 ambulatory [facility] Start: 03-16-2024 End: 03-18-2024 Refill Nickflorencia Styles CHIEF SCIENTIST-PLANER OPERATOR Work Phone: [facility] Comment on above: Polyneuropathy Start: 02-28-2024 End: 03-01-2024 Refill Cari Carpio CHIEF SCIENTIST-PNEUMATIC TUBE OPERATOR Work Phone: [facility] Comment on above: Mixed hyperlipidemia Start: 02-19-2024 End: 02-19-2024 Orders Only Nick Styles CHIEF SCIENTIST-PLANER OPERATOR Work Phone: [facility] Comment on above: Polyneuropathy Start: 02-14-2024 End: 02-14-2024 Orders Only Nick Styles CHIEF SCIENTIST-PLANER OPERATOR Work Phone: [facility] Comment on above: Polyneuropathy Start: 01-31-2024 Refill Cari Carpio CHIEF SCIENTIST-PNEUMATIC TUBE OPERATOR Work Phone: [facility] Comment on above: Polyneuropathy Start: 01-23-2024 End: 01-23-2024 ambulatory [facility] Start: 01-23-2024 End: 01-23-2024 Office outpatient visit 25 minutes Cari Carpio CHIEF SCIENTIST-PNEUMATIC TUBE OPERATOR Work Phone: [facility] Comment on above: 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, with long-term current use of insulin ([facility]) (Primary Dx); Stasis dermatitis of lower extremity due to chronic peripheral vascular hypertension; Mixed hyperlipidemia; Pulmonary hypertension ([facility]); PAF (paroxysmal atrial fibrillation) ([facility] Fibrosis of lung ([facility]); Morbid obesity ([facility]) Start: 01-23-2024 End: 01-23-2024 ambulatory [facility] Start: 01-14-2024 Orders Only Cari Carpio CHIEF SCIENTIST-PNEUMATIC TUBE OPERATOR Work Phone: [facility] Start: 01-14-2024 Refill Cari Carpio CHIEF SCIENTIST-PNEUMATIC TUBE OPERATOR Work Phone: [facility] Comment on above: Gouty arthropathy Start: 01-09-2024 End: 01-09-2024 Office outpatient visit 15 minutes Cari Carpio CHIEF SCIENTIST-PNEUMATIC TUBE OPERATOR Work Phone: 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 Comment on above: Mixed hyperlipidemia Start: 11-18-2023 Refill Cari Sewell Yesika CHIEF SCIENTIST-PNEUMATIC TUBE OPERATOR Work Phone: [facility] Comment on above: Polyneuropathy Start: 11-01-2023 End: 11-01-2023 Office outpatient visit 25 minutes Jered Celestin MD Work Phone: [facility] Comment on above: PAF (paroxysmal atri al fibrillation) ([facility]) (Primary Dx); Abnormal echocardiogram; Essential hypertension; Nonrheumatic mitral valve regurgitation; LVH (left ventricular hypertrophy); Pulmonary hypertension ([facility]); S/P ablation of atrial fibrillation; Healthcare maintenance; Atrial enlargement, bilateral; DESTINY (obstructive sleep apnea); Bilateral leg edema; Hyperlipidemia, unspecified hyperlipidemia type; Current use of prison anticoagulation; Abnormal ECG; History of radiofrequency ablation (RFA) for complex left atrial arrhythmia; oil heaterman (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 anticoagulants Start: 11-01-2023 End: 11-01-2023 Patient encounter status Jered Celestin MD Work Phone: [facility] Work Phone: Start: 11-01-2023 End: 11-01-2023 ambulatory JERED S [facility] Start: 11-01-2023 Encounter for genera l adult medical examination without abnormal findings JERED Echavarria [facility] Start: 10-09-2023 End: 10-09-2023 ambulatory Evita Olivia Other [employer] Other Start: 10-09-2023 Office outpatient vi sit 15 minutes Evitatien Baker [facility] [place] Start: 10-01-2023 End: 10-01-2023 Patient encounter procedure Cari Carpio CHIEF SCIENTIST-PNEUMATIC TUBE OPERATOR Work Phone: [facility] Comment on above: Medicare annual well ness visit, subsequent (Primary Dx) Start: 12-04-2022 End: 12-05-[address] DOCTOR GTZ Facility:H1 Start: 11-22-2022 End: 11-23-[address] DOCTOR GTZ Facility:[facility]1 Start: 08-02-2022 End: 08-02-2022 ambulatory Kamaugustine Gonzalez Other [employer] Other Start: 08-02-2022 Office outpatient vi sit 15 minutes Kamal Lisa [facility] Start: 07-25-2022 End: 07-26-[address] DOCTOR GTZ Facility:[facility]1 Start: 04-12-2022 End: 04-12-2022 ambulatory Kamaugustine Gonzalez Other [employer] Other Start: 04-12-2022 Office outpatient vi sit 25 minutes Kamal Chaban [facility] Start: 04-05-2022 End: 04-06-[address] DOCTOR GTZ Facility:[facility]1 Start: 02-01-2022 End: 02-01-2022 ambulatory Kamal Lisa Other [employer] Other Start: 02-01-2022 Office outpatient vi sit 25 minutes Kamal Chaban [facility] Start: 01-15-2022 End: 01-16-[address] DANYEL GONZALEZ Facility:[facility]1 Start: 01-03-2022 End: 01-03-2022 ambulatory Danyel Gonzalez Other [employer] Other Start: 01-03-2022 Office outpatient ne w 45 minutes Danyel Gonzalez [facility] Start: 12-18-2021 End: 12-19-[address] DOCTOR GTZ Facility: Start: 12-26-2018 End: 12-30-2018 Evaluation and management of inpatient [facility] Procedures Date Procedure Procedure Detail Performing Clinician Start: 02-11-2025 Bilateral mammography Carmen Smith EXCELSIOR MACHINE FEEDER-C Work Phone: Start: 02-09-2025 Gluc bld gluc mntr dev cleared fda spec home use Danay Hebert MD Work Phone: Start: 10-13-2024 Gluc bld gluc mntr dev cleared fda spec home use Danay Hebert MD Work Phone: Start: 07-09-2024 Adult depression screening assessment Nick Styles CHIEF SCIENTIST-PLANER OPERATOR Work Phone: Start: 03-17-2024 Adult depression screening assessment Cari Carpio CHIEF SCIENTIST-PNEUMATIC TUBE OPERATOR Work Phone: Start: 01-23-2024 Adult depression screening assessment Cari Carpio CHIEF SCIENTIST-PNEUMATIC TUBE OPERATOR Work Phone: Start: 01-09-2024 POCT INFLUENZA A/INFLUENZA B/SARS-COV-2 VERITOR Cari Carpio CHIEF SCIENTIST-PNEUMATIC TUBE OPERATOR Work Phone: Start: 01-09-2024 Adult depression screening assessment Cari Carpio CHIEF SCIENTIST-PNEUMATIC TUBE OPERATOR Work Phone: Start: 11-01-2023 Ecg routine ecg w/least 12 lds w/i&r Jered Celestin MD Work Phone: Start: 11-01-2023 Follow-up visit Follow-up JERED CELESTIN Start: 10-14-2023 Adult depression screening assessment Jered Celestin MD Work Phone: Start: 12-30-2018 PULSE OXIMETRY, CONTINUOUS CHRISTIE BREN YA Start: 12-30-2018 Gluc bld gluc mntr dev cleared fda spec home use CHRISTIE PRUITTNYA Start: 12-30-2018 PULSE OXIMETRY, CONTINUOUS CHRISTIE BREN YA Start: 12-30-2018 Ecg routine ecg w/least 12 lds w/i&r CHRISTIE PRUITTNYA Start: 12-30-2018 DISCHARGE PATIENT CHRISTIE ESTRADA Start: 12-30-2018 Gluc bld gluc mntr dev cleared fda spec home use CHRISTIE CHRISTIANA Start: 12-30-2018 INITIATE OXYGEN THERAPY PROTOCOL CHRISTIE ESTRADA Start: 12-30-2018 PULSE OXIMETRY, CONTINUOUS CHRISTIE BREN YA Start: 12-30-2018 Gluc bld gluc mntr dev cleared fda spec home use CHRISTIE CHRISTIANA Start: 12-30-2018 PULSE OXIMETRY, CONTINUOUS CHRISTIE BREN YA Start: 12-30-2018 Glucose blood reagent strip CHRISTIE EDMOND VALDO Start: 12-30-2018 PULSE OXIMETRY, CONTINUOUS CHRISTIE BREN YA Start: 12-30-2018 Glucose blood reagent strip CHRISTIE EDMOND VALDO Start: 12-30-2018 Ecg routine ecg w/least 12 lds w/i&r CHRISTIE CHRISTIANA Start: 12-29-2018 Glucose blood reagent strip CHRISTIE EDMOND VALDO Start: 12-29-2018 Gluc bld gluc mntr dev cleared fda spec home use CHRISTIE CHRISTIANA Start: 12-29-2018 PULSE OXIMETRY, CONTINUOUS CHRISTIE BREN YA Start: 12-29-2018 Glucose blood reagent strip CHRISTIE EDMOND VALDO Start: 12-29-2018 PULSE OXIMETRY, CONTINUOUS CHRISTIE BREN YA Start: 12-29-2018 LAB SCANNED REPORT CHRISTIE ESTRADA Start: 12-29-2018 Transfusion blood/blood components CHRISTIE ESTRADA Start: 12-29-2018 Gluc bld gluc mntr dev cleared fda spec home use CHRISTIE PRUITTNYA Start: 12-29-2018 PULSE OXIMETRY, CONTINUOUS CHRISTIE BREN YA Start: 12-29-2018 Ecg routine ecg w/least 12 lds w/i&r CHRISTIE CHRISTIANA Start: 12-29-2018 Glucose blood reagent strip CHRISTIE EDMOND VALDO Start: 12-29-2018 HEMOGLOBIN AND HEMATOCRIT, BLOOD CHRISTIE ESTRADA Start: 12-29-2018 Gluc bld gluc mntr dev cleared fda spec home use CHRISTIE ESTRADA Start: 12-29-2018 INITIATE OXYGEN THERAPY PROTOCOL CHRISTIE ESTRADA Start: 12-29-2018 PULSE OXIMETRY, CONTINUOUS CHRISTIE PERRY YA Start: 12-29-2018 Glucose blood reagent strip [...] 12 lds w/i&r CHRISTIE ESTRADA Start: 12-28-2018 Gluc bld gluc mntr dev cleared fda spec home use CHRISTIE ESTRADA Start: 12-28-2018 PULSE OXIMETRY, CONTINUOUS CHRISTIE PRUITTN YA Start: 12-28-2018 Glucose blood reagent strip CHRISTIE LORENZANAA Start: 12-28-2018 PULSE OXIMETRY, CONTINUOUS CHRISTIE PRUITTN YA Start: 12-28-2018 Glucose blood reagent strip CHRISTIE LORENZANAA Start: 12-28-2018 TRANSFUSE RED BLOOD CELLS CHRISTIE Lopez Start: 12-28-2018 Gluc bld gluc mntr dev cleared fda spec home use CHRISTIE ESTRADA Start: 12-28-2018 PULSE OXIMETRY, CONTINUOUS CHRISTIE PRUITTN YA Start: 12-28-2018 Glucose blood reagent strip [...] blood reagent strip CHRISTIE EDMOND VALDO Start: 12-28-2018 Basic metabolic panel calcium total CHRISTIECHENG ESTRADA Start: 12-28-2018 Blood count complete auto&auto difrntl wbc CHRISTIE ESTRADA Start: 12-28-2018 Gluc bld gluc mntr dev cleared fda spec home use CHRISTIE ESTRADA Start: 12-28-2018 PULSE OXIMETRY, CONTINUOUS CHRISTIE BREN YA Start: 12-28-2018 Glucose blood reagent strip CHRISTIE EDMOND VALDO Start: 12-28-2018 PULSE OXIMETRY, CONTINUOUS CHRISTIE BREN YA Start: 12-28-2018 Glucose blood reagent strip CHRISTIE EDMOND VALDO Start: 12-27-2018 Gluc bld gluc mntr dev cleared fda spec home use CHRISTIE CHRISTIANA Start: 12-27-2018 PULSE OXIMETRY, CONTINUOUS CHRISTIE BREN YA Start: 12-27-2018 Glucose blood reagent strip CHRISTIE EDMOND VALDO Start: 12-27-2018 Glucose blood reagent strip CHRISTIE EDMOND VALDO Start: 12-27-2018 PULSE OXIMETRY, CONTINUOUS CHRISTIE BREN YA Start: 12-27-2018 DIET CARB CONTROL CHRISTIE ESTRADA Start: 12-27-2018 Gluc bld gluc mntr dev cleared fda spec home use CHRISTIE CHRISTIANA Start: 12-27-2018 PULSE OXIMETRY, CONTINUOUS CHRISTIE BREN YA Start: 12-27-2018 Glucose blood reagent strip CHRISTIE EDMOND VALDO Start: 12-27-2018 Gluc bld gluc mntr dev cleared fda spec home use CHRISTIE CHRISTIANA Start: 12-27-2018 INITIATE OXYGEN THERAPY PROTOCOL CHRISTIE ESTRADA Start: 12-27-2018 PULSE OXIMETRY, CONTINUOUS CHRISTIE BREN YA Start: 12-27-2018 Glucose blood reagent strip CHRISTIE EDMOND VALDO Start: 12-27-2018 Blood count complete automated CHRISTIECHENG CHRISTIANA Start: 12-27-2018 ARTERIAL BLOOD GAS, POC CHRISTIE EDMONDNYA Start: 12-27-2018 Gluc bld gluc mntr dev cleared fda spec home use CHRISTIE BRENYA Start: 12-27-2018 PULSE OXIMETRY, CONTINUOUS CHRISTIE BREN YA Start: 12-27-2018 ARTERIAL BLOOD GAS, POC CHRISTIE EDMONDNYA Start: 12-27-2018 Gluc bld gluc mntr dev cleared fda spec home use CHRISTIE BRENYA Start: 12-27-2018 LACTIC ACID,POINT OF CARE CHRISTIE EDMONDNY A Start: 12-27-2018 Assay of magnesium CHRISTIE EDMONDNYA Start: 12-27-2018 Basic metabolic panel calcium total CHRISTIE EDMONDNYA Start: 12-27-2018 Blood count complete automated CHRISTIE PRUITTNYA Start: 12-27-2018 Calcium ionized CHRISTIE PRUITTNYA Start: 12-27-2018 PULSE OXIMETRY, CONTINUOUS CHRISTIE BREN YA Start: 12-27-2018 PATIENT STATUS (FROM ED OR OR/PROCEDURAL) CHRISTIELAW CHRISTIANA Start: 12-26-2018 PULSE OXIMETRY, CONTINUOUS CHRISTIE BREN YA Start: 12-26-2018 Ecg routine ecg w/least 12 lds w/i&r CHRISTIELAW CHRISTIANA Start: 12-26-2018 EKG REPORT HCRISTIE BRESALOMÓNJessica Start: 12-26-2018 IP CONSULT TO PULMONOLOGY CHRISTIE Lopez Start: 12-26-2018 Assay of magnesium CHRISTIE CHRISTIANA Start: 12-26-2018 Basic metabolic panel calcium total CHRISTIE CHRISTIANA Start: 12-26-2018 Blood count complete automated CHRISTIE CHRISTIANA Start: 12-26-2018 Prothrombin time CHRISTIELAW CHRISTIANA Start: 12-26-2018 Thromboplastin time partial plasma/whole blood CHRISTIECHENG CHRISTIANA Start: 12-26-2018 Radiologic exam chest single view CHRISTIE ESTRADA Start: 12-26-2018 DRAIN CARE CHRISTIE CHRISTIANA Start: 12-26-2018 IP CONSULT TO DIETITIAN CHRISTIE ESTRADA Start: 12-26-2018 MILDRED TUBE DRAIN CHRISTIE ESTRADA Start: 12-26-2018 NASOGASTRIC TUBE INSERTION CHRISTIE LEONARD Start: 12-26-2018 FULL CODE CHRISTIE EDMONDSALOMÓNA Start: 12-26-2018 INITIATE OXYGEN THERAPY PROTOCOL CHRISTIE [...] spec home use CHRISTIE ESTRADA Start: 12-26-2018 LACTIC ACID,POINT OF CARE CHRISTIE Lopez Start: 12-26-2018 NOTIFICATION PANEL, POC CHRISTIE ESTRADA Start: 12-26-2018 Potassium serum plasma/whole blood CHRISTIE ESTRADA Start: 12-26-2018 Sodium serum plasma or whole blood CHRISTIE ESTRADA Start: 12-26-2018 Glucose blood reagent strip CHRISTIE LYLE Start: 12-26-2018 TRANSFER PATIENT CHRISTIE ESTRADA Start: 12-26-2018 Culture bacterial quanttative colony count urine CHRISTIE ESTRADA Start: 12-26-2018 TRANSFUSE RED BLOOD CELLS CHRISTIE Lopez Start: 12-26-2018 TRANSFUSE PLATELETS CHRISTIE ESTRADA Start: 12-26-2018 TRANSFUSE FRESH FROZEN PLASMA CHRISTIE CHAVEZ Start: 12-26-2018 TRANSFUSE RED BLOOD CELLS CHRISTIE Lopez Start: 12-26-2018 Calcium ionized CHRISTIE ESTRADA Start: 12-26-2018 Immunofixj electrophoresis serum CHRISTIE ESTRADA Start: 12-26-2018 Transfusion blood/blood components CHRISTIE ESTRADA Start: 12-26-2018 HEMOGLOBIN AND HEMATOCRIT, BLOOD CHRISTIE ESTRADA Start: 12-26-2018 Prothrombin time CHRISTIE [...] 12-26-2018 IP CONSULT TO IV TEAM CHRISTIE NATALIE Start: 12-26-2018 Ecg routine ecg w/least 12 lds w/i&r CHRISTIELAW ESTRADA Start: 12-26-2018 EKG REPORT CHRISTIELAW ESTRADA Start: 12-26-2018 POC CHEMISTRY (NA,K,ICA,GLU,CALC HCT/HGB,LACTATE,CREA,CL) CHRISTIELAW ESTRADA Start: 12-26-2018 Echo transesophag r-t 2d w/prb img acquisj i&r CHRISTIELAW ESTRADA Start: 12-26-2018 R & l hrt cath w/njx l ventriculog img s&i CHRISTIELAW PRUITTSALOMÓNJessica Plan of Treatment Date Care Activity Detail Author Start: 07-19-2026 DTaP,Tdap and Td Vaccines (3 - Td or Tdap) DTaP,Tdap and Td Vaccines (3 - Td or Tdap) [facility] Start: 07-13-2025 Adult BMI Screening Adult BMI Screen ing [facility] Start: 07-09-2025 Adult BMI Screening Adult BMI Screen ing [facility] Start: 07-09-2025 Depression Screening Depression Scre ening [facility] Start: 07-09-2025 Fall Risk Screening Fall Risk Screen ing [facility] Start: 07-09-2025 Tobacco Screening Tobacco Screening [facility] Start: 07-05-2025 Influenza vaccination Influenz a Vaccine (Season Ended) [facility] Start: 05-13-2025 End: 05-13-2025 Patient encounter procedure 05/13/2025 10:40 AM EDT Office Visit [facility] [address] [place] [phone] Chaya Bass NP [address] [place], [place] [facility] Start: 03-17-2025 Adult BMI Screening Adult BMI Screen ing [facility] Start: 03-17-2025 Depression Screening Depression Scre ening [facility] Start: 03-17-2025 Fall Risk Screening Fall Risk Screen ing [facility] Start: 03-17-2025 Tobacco Screening Tobacco Screening [facility] Start: 02-16-2025 End: 02-16-2025 Patient encounter procedure 02/16/2025 8:15 AM EDT Office Visit [facility] [address] [place] [phone] Silva Sanders DPM [address] [place] [address] [facility] Start: 02-09-2025 End: 02-09-2025 Patient encounter procedure 02/09/2025 1:40 PM EDT Office Visit [facility] [address] [place] [address] Danay Hebert MD [address] [place] [address] [facility] Start: 02-04-2025 End: 04-06-2026 DBT Breast - bilateral diagnostic Bilateral diagnostic mammogram with tomosynthesis Imaging Routine Abnormal mammogram Expected: 02/04/2025 (Approximate), Expires: 04/06/2026 [facility] Work Phone: Comment on above: Expected: 02/04/2025 (Approximate), Expires: 04/06/2026 Start: 01-22-2025 Adult BMI Follow Up Plan Adult BMI Follow Up Plan [facility] Start: 01-22-2025 Adult BMI Screening Adult BMI Screen ing [facility] Start: 01-22-2025 Depression Screening Depression Scre ening [facility] Start: 01-22-2025 Fall Risk Screening Fall Risk Screen ing [facility] Start: 01-22-2025 Tobacco Screening Tobacco Screening [facility] Start: 01-08-2025 Adult BMI Screening Adult BMI Screen ing [facility] Start: 01-08-2025 Depression Screening Depression Scre ening [facility] Start: 01-08-2025 Fall Risk Screening Fall Risk Screen ing [facility] Start: 01-08-2025 Tobacco Screening Tobacco Screening [facility] Start: 12-14-2024 End: 12-14-2024 Patient encounter procedure 12/14/2024 10:15 AM EST Procedure Visit [facility] [address] [place] [address] Silva Sanders DPM [address] [place] [address] [facility] Start: 11-26-2024 End: 11-26-2024 Patient encounter procedure [facility] Start: 11-01-2024 Adult BMI Screening Adult BMI Screen ing [facility] Start: 11-01-2024 Tobacco Screening Tobacco Screening [facility] Start: 10-22-2024 End: 10-22-2024 Patient encounter procedure 10/22/2024 1:30 PM EST Office Visit [facility] [address] [place] [address] Carmen Smith, EXCELSIOR MACHINE FEEDER [address] [place] [address] [facility] Start: 10-19-2024 End: 10-19-2024 Patient encounter procedure [facility] Comment on above: Arrived Start: 10-14-2024 Depression Screening Depression Scre ening [facility] Start: 10-13-2024 End: 10-13-2024 Patient encounter procedure [facility] Comment on above: Type 2 diabetes kallie itus with hyperglycemia, with long-term current use of insulin ([facility]) Start: 10-08-2024 End: 10-08-2024 Patient encounter procedure 10/08/2024 1:00 PM EST Office Visit [facility] [address] [place] [address] [facility] Start: 10-01-2024 Fall Risk Screening Fall Risk Screen ing [facility] Start: 10-01-2024 Medicare Annual Wellness (AWV) Medicare Annual Wellness (AWV) [facility] Start: 10-01-2024 Medicare Annual Wellness Visit Medicare Annual Wellness Visit [facility] Start: 09-15-2024 End: 09-15-2024 Patient encounter procedure 09/15/2024 10:15 AM EST Procedure Visit [facility] [address] [place] [phone] Silva Sanders DPM [address] [place] [address] [facility] Start: 09-03-2024 End: 09-03-2024 Patient encounter procedure 09/03/2024 8:20 AM EDT Office Visit [facility] [address] [place] [phone] Chaya Bass NP [address] [place], [place] Arrived [facility] [address] [facility] Comment on above: Arrived Start: 07-30-2024 End: 07-30-2024 Patient encounter procedure 07/30/2024 3:20 PM EDT [facility] [address] [place] [address] Nick Styles, CHIEF SCIENTIST-PLANER OPERATOR [address] [place] [address] [facility] Start: 07-09-2024 End: 07-09-2025 MR Breast - bilateral WO and W contrast IV MR bilateral breast with and without contrast with CAD Imaging Routine Abnormality of right breast on screening mammogram Expected: 07/09/2024, Expires: 07/09/2025 [facility] Work Phone: Comment on above: Expected: 07/09/2024 , Expires: 07/09/2025 Start: 07-09-2024 End: 07-09-2024 Patient encounter procedure 07/09/2024 10:40 AM EDT Office Visit [facility] [address] [place] [address] Nick Styles, CHIEF SCIENTIST-PLANER OPERATOR [address] [place] [address] [facility] Start: 07-05-2024 Influenza vaccination [facility] Start: 06-25-2024 End: 06-25-2025 MG stereo Guidance for additional biopsy of Breast - right Mammography biopsy breast stereotactic guidance each additional right Imaging Routine Abnormality of right breast on screening mammogram Expected: 06/25/2024, Expires: 06/25/2025 [facility] Work Phone: Comment on above: Expected: 06/25/2024 , Expires: 06/25/2025 Start: 04-28-2024 End: 04-28-2025 MG Breast duct - right Views W contrast intra duct Mammography diagnostic unilateral right with CAD Imaging Routine Abnormal mammogram of right breast Expected: 04/28/2024, Expires: 04/28/2025 [facility] Work Phone: Comment on above: Expected: 04/28/2024 , Expires: 04/28/2025 Start: 04-21-2024 End: 04-21-2025 MR Breast - bilateral WO and W contrast IV MR bilateral breast with and without contrast with CAD Imaging Routine Abnormality of right breast on screening mammogram Expected: 04/21/2024, Expires: 04/21/2025 [facility] Work Phone: Comment on above: Expected: 04/21/2024 , Expires: 04/21/2025 Start: 04-16-2024 End: 04-16-2024 Patient encounter procedure 04/16/2024 10:00 AM EDT Appointment [facility] - Mammogram DEXA [address] [place] [address] [facility] - Mammogram DEXA Start: 03-18-2024 End: 03-18-2024 Patient encounter procedure 03/18/2024 11:15 AM EDT Procedure Visit [facility] [address] [place] [address] Silva Sanders DPM [address] [place] [address] [facility] Start: 03-17-2024 End: 03-17-2025 DBT Breast - bilateral screening Mammography screening bilateral with CAD Imaging Routine Encounter for screening mammogram for malignant neoplasm of breast Expected: 03/17/2024, Expires: 03/17/2025 [facility] Work Phone: Comment on above: Expected: 03/17/2024 , Expires: 03/17/2025 Start: 01-29-2024 Administration of varicella zoster vaccine Zoster (Shingles) Vaccine (1 of 2) [facility] Comment on above: Postponed from 12/20 (Patient Refused) Start: 01-23-2024 End: 01-23-2024 Patient encounter procedure 01/23/2024 8:00 AM EDT [facility] [address] [place] [address] Cari Carpio, CHIEF SCIENTIST-PNEUMATIC TUBE OPERATOR [address] [place] [address] [facility] Start: 12-18-2023 End: 12-18-2023 Patient encounter procedure 12/18/2023 11:15 AM EST Procedure Visit [facility] [address] [place] [phone] Silva Sanders DPM [address] [place] [address] [facility] Start: 1988 Administration of varicella zoster vaccine Zoster (Shingles) Vaccine (1 of 2) [facility] Start: 1957 Urine screening for protein Diabetes: Urine Protein Screening [facility] Start: 1956 Adult BMI Follow Up Plan Adult BMI Follow Up Plan [facility] Start: 1948 Glaucoma screening Diabetes: R etinopathy Screening [facility] Start: 1938 Hemoglobin A1c measurement Diabetes: Hemoglobin A1C [facility] POCT EKG POCT EKG ECG Rou don Abnormal echocardiogram Essential hypertension Nonrheumatic mitral valve regurgitation LVH (left ventricular hypertrophy) Pulmonary hypertension ([facility]) S/P ablation of atrial fibrillation Healthcare maintenance 11/01/2023 12:20 PM EST [facility] Work Phone: Immunizations Immunization Date Immunization Notes Care Provider [facility] 08-21-2023 Influenza Vaccine, Quadrivalent, Adjuvanted Jered Celestin MD Work Phone: [facility] 08-21-2023 influenza virus vacc ine, unspecified formulation Cari Carpio CHIEF SCIENTIST-PNEUMATIC TUBE OPERATOR Work Phone: [facility] 11-21-2022 Influenza Vaccine, Quadrivalent, Adjuvanted Silva Sanders DPM Work Phone: [facility] 10-10-2021 pneumococcal conjuga te vaccine, 13 valent Chaya Bass EXCELSIOR MACHINE FEEDER Work Phone: [facility] 01-09-2021 COVID-19 Vaccine Mike ssen - Documentation Purposes Only Danyel Gonzalez Other [facility] 09-02-2020 influenza, high dose seasonal, preservative-free Silva Sanders DPM Work Phone: [facility] 09-01-2020 pneumococcal conjuga te vaccine, 13 valent Silva Sanders DPM Work Phone: [facility] 08-27-2019 influenza, injectabl e, quadrivalent, contains preservative Silva Sanders DPM Work Phone: [facility] 08-14-2018 Seasonal trivalent influenza vaccine, adjuvanted, preservative free Silva Sanders DPM Work Phone: [facility] 07-19-2017 Influenza, injectabl e, Madin Hollie Canine Kidney, quadrivalent with preservative Silva Sanders DPM Work Phone: [facility] 11-12-2016 influenza, high dose seasonal, preservative-free Silva Sanders DPM Work Phone: [facility] 07-19-2016 pneumococcal conjuga te vaccine, 13 valent Silva Sanders DPM Work Phone: [facility] 07-19-2016 TD(adult) unspecifie d formulation Jered Celestin MD Work Phone: [facility] 07-19-2016 tetanus and diphther ia toxoids, adsorbed, preservative free, for adult use (2 Lf of tetanus toxoid and 2 Lf of diphtheria toxoid) Silva Sanders DPM Work Phone: [facility] 10-14-2015 influenza, seasonal, injectable Silva Sanders DPM Work Phone: [facility] 10-14-2014 pneumococcal polysaccharide vaccine, 23 valent Silva Sanders DPM Work Phone: [facility] Payers Date Payer Category Payer Self-pay [id number] 2023 Medicaid [id number] 2023 Medicare [id number] 2023 Medicare (Managed Care) [facility] MEDIC[facility] [id number] 2023 Private Health Insurance [id number] 2017 Medicaid [id number] 2017 Medicare [id number] 1959 Medicaid [id number] 1959 Medicare [id number] 2.16.840.1.712026.19 1959 Medicare [id number] 1938 Unknown [id number] 2.16.840.1.867708.3.579.2. 175 1938 Unknown [id number] 2.16.840.1.353018.3.579.2. 593 1938 Unknown [id number] 2.16.840.1.644972.3.579.2. 593 1938 Unknown [id number] 2.16.840.1.038967.3.579.2. 593 1938 Unknown [id number] 2.16.840.1.398116.3.579.2. 593 1938 Unknown [id number] 2.16.840.1.182372.3.579.2. 593 1938 Unknown [id number] 2.16.840.1.045662.3.579.2. 593 1938 Unknown [id number] 2..840.1.960634.3.579.2. 593 1938 Unknown [id number] 2.16.840.1.748113.3.579.2. 1286 1938 Unknown [id number] 2.840.1.408340.3.579.2. 1285 1938 Unknown [id number] 2.840.1.559129.3.579.2. 128 1938 Unknown [id number] 2.840.1.085277.3.579.2. 1285 1938 Unknown [id number] 2.840.1.700690.3.579.2. 128 1938 Unknown [id number] 2.840.1.792438.3.579.2. 1285 1938 Unknown [id number] 2.840.1.676168.3.579.2. 128 1938 Unknown [id number] .840.1.595944.3.579.2. 1285 1938 Unknown [id number] 2.840.1.411872.3.579.2. 128 1938 Unknown [id number] 2.840.1.865889.3.579.2. 1285 1938 Unknown [id number] 2.840.1.404303.3.579.2. 1285 1938 Unknown [id number] 2.840.1.722689.3.579.2. 128 1938 Unknown [id number] 2.840.1.772290.3.579.2. 128 1938 Unknown [id number] 2.840.1.490271.3.579.2. 1938 Unknown [id number] 2.16.840.1.378889.3.579.2. 1938 Unknown [id number] 2.16.840.1.532190.3.579.2. 1938 Unknown [id number] 2..840.1.204311.3.579.2. 1938 Unknown [id number] 2..840.1.951850.3.579.2. 1938 Unknown [id number] 2..840.1.687628.3.579.2 1938 Unknown [id number] 2.840.1.810070.3.579.2 1938 Unknown [id number] 2.840.1.515300.3.579.2 1938 Unknown [id number] 2.840.1.305387.3.579.2. 1938 Unknown [id number] 2..840.1.670986.3.579.2 1938 Unknown [id number] 2.840.1.389317.3.579.2. 1938 Unknown [id number] .840.1.354311.3.579.2. 1258 1938 Unknown [id number] 2.840.1.192712.3.579.2. 1258 1938 Unknown [id number] 2..840.1.135316.3.579.2. 1258 1938 Unknown [id number] 2..840.1.415725.3.579.2. 1258 1938 Unknown [id number] 2.840.1.233776.3.579.2. 1258 1938 Unknown [id number] 2.16.840.1.714023.3.579.2. 1259 1938 Unknown [id number] 2.16.840.1.395765.3.579.2. 1258 1938 Unknown [id number] 2.16.840.1.418123.3.579.2. 9 1938 Unknown [id number] 2.16.840.1.231631.3.579.2. 1258 1938 Unknown [id number] 2.16.840.1.345154.3.579.2. 125 Medicare [id number] 2.16.840.1.273166.19 Unknown [id number] 2.16.840.1.521068.3.579.2. 531 Social History Date Type Detail Facility Start: 09-16-2023 End: 11-13-2024 Sex Assigned At [facility] Start: 04-05-2023 End: 06-23-2024 Tobacco smoking status MAIS Never smoked tobacco [facility] Start: 04-05-2023 End: 11-01-2023 Tobacco use and exposure Smokeless tobacco non-user [facility] Start: 09-16-2023 End: 07-09-2024 Alcohol intake [facility]-dr[facility] ([facility] Start: 09-16-2023 End: 11-13-2024 History of Social function [facility] Start: 1940 Sex Assigned At Not on file [facility] Start: 1940 Sex Assigned At Female [facility] Start: 08-12-2024 End: 02-04-2025 Alcoholic beverage intake Lifetime non-drinker (finding) [facility] History of tobacco use Passive smoker [facility] Has the [employer], [employer], or water [employer] threatened to shut off services in your home in past 12Mo No [facility] Are you now , , , , never or living with a partner? Never [facility] How often to you hav e a drink containing alcohol? Never [facility] How many standard drinks containing alcohol do you have on a typical day? Patient does not drink [facility] Do you feel stress - tense, restless, nervous, or anxious, or unable to sleep at night because your mind is troubled all the time - these days [OSQ] Not at all [facility] Start: 02-12-2025 Sex Female (finding) [facility] Procedure Code Equipment Code Equipment Origin al Text Equipment Identifier Dates [id number] Start: 12-17-2022 End: 02-04-2025 USE DIRECTED 3 TIMES A DAY [id number] Start: 12-17-2022 Lens Iol Ultrase rt 18.0d - [id number] - [id number] Start: 12-06-2020 USE FOUR TIMES A DAY. ICD 10 E11.65 [id number] Start: 01-13-2023 USE DIRECTED 3 TIMES A DAY [id number] Start: 12-17-2022 Clinical Notes 09-04-2021 to 02-09-2025 Danay Hebert MD - 02/09/2025 1:40 PM Chris Rodriguez DO - 02/04/2025 2:00 PM Kelly Smith NP - 10/22/2024 1:30 PM ESTTelephone Encounter - Cresencio Mitchellarthy - 10/20/2024 1:25 PM EST Note Date & Type Note Facility 02-09-2025 History of Present illness Narrative Images from the original note were not included. Joycelyn Hamm is a 84 y.o. female No ref. provider found presents with chief complaint of Diabetes and Follow-up HPI: IM 02/2025 follow up visit on 02/09/2025 A1c 8.7 , bg 283 on levemir 55 units qhs, Humalog 20 units ac . TRADJENT 5 MG DAILY. Lives [place]. Log book [phone] IM 10/2024 follow up visit on 10/13/2024 A1c 8.5 , bg 100 on levemir 100 units qhs, Humalog 20-30-30 units . TRADJENT 5 MG DAILY. In [place] now. IM 06/2024 follow up visit on 06/09/2024 A1c 7.5 , bg 168 on levemir 100 units qhs, Humalog 20-30-30 units . TRADJENT 5 MG DAILY. CGM free [facility] 2 391-6 avg 133. IM 03/2024 follow up visit on 03/10/2024 A1c 7.1 , bg 86 on levemir 100 units qhs, Humalog 20-30-30 units . TRADJENT 5 MG DAILY. lab vit d 36, GFR 38, TC 124, HDL 48, LDL 51, AL/CR 37. IM 11/2023 follow up visit on 11/12/2023 A1c 8.6, bg 278 on levemir 100 units qhs, Humalog 20-30-30 units . TRADJENT 5 MG DAILY not sure. CGM -35 avg 162. IM 07/2023 follow up visit on 07/16/2023 A1c 7.7, bg 189 on levemir 100 units qhs, now Humalog 20-30-30 units . TRADJENT 5 MG DAILY not sure. CGM -11 avg 135 IM 03/2023 follow up visit on 03/20/2023 A1c 8, bg 264 on levemir 100 units qhs, now Humalog 20-30-30 units . TRADJENT 5 MG DAILY not sure. CGM done IM 12/2022 follow up visit on 12/14/2022 A1c 7.5 , bg 134 on levemir 100 units qhs, novolog 20-30-30 units . TRADJENT 5 MG DAILY not sure. lab on 11/2022 GFR 39, AL/CR 100 IM 09/2022 follow up visit on 09/11/2022 A1c 8.5 , bg 164. on levemir 100 units qhs and 30 units am , novolog 20-30-30 units . TRADJENT 5 MG DAILY not sure. CGM 0-23 AVG 157 IM 06/2022 follow up visit on 07/03/2022 A1c 7.2 , bg 208. on levemir 100 units qhs, novolog 20-20-30 units . TRADJENT 5 MG DAILY not sure. IM 03/2022 follow up visit on 03/20/2022 A1c 7.9 , bg 317. on levemir 100 units qhs, novolog 20-20-30 units . TRADJENT 5 MG DAILY CGM 0-70-25 avg 148 IM 11/2021 follow up visit on 11/15/2021 A1c 8.2, bg 244. on levemir 100 units qhs, novolog 20-20-30 units . lab c peptide 7.2, cr 1.5, GFR 33, TC 144, HDL 38, TG 166, LDL 72, vit d 32 HPI: 07/2021 New patient sent with her niece for uncontrolled diabetes. A1C in the office 8.6, blood sugar 177. She is morbidly obese: Body mass index 47. She is currently on Levemir 30 units in the morning; 100 at bedtime and NovoLog 20 units breakfast, 30 lunch, 30 supper. Not on any other tablets. She has a-fib taking Eliquis. Last CGM was Freestyle; low 1%, 72 in good %, 27% high range and average 156. One day she called her niece while she was on continuous away from house and told her I take too much insulin , so her niece is worried about her; the two insulins are confusing and she wonders if she is eligible for pump insulin. I told that this needs more work and the need to check more blood sugars. SUBJECTIVE: MEDICATIONS: Current Outpatient Medications Medication Instructions acetaminophen (TYLENOL) 650 mg, Every 4 hours PRN albuterol HFA (Ventolin HFA) 90 mcg/act inhaler allopurinol (ZYLOPRIM) 300 mg, Nightly ammonium lactate (Lac-Hydrin Five) 5 % lotion 1 Application, 2 times daily PRN atorvastatin (LIPITOR) 40 mg, Nightly B-D UF III MINI PEN NEEDLES 31G X 5 MM [facility] Blood Glucose Monitoring Suppl (True Metrix Meter) w/Device kit 1 Device, 3 times daily bumetanide (BUMEX) 2 mg Calcium Carbonate-Vitamin D (Oyster Shell Calcium/D) 500-5 MG-MCG tablet 1 tablet, 2 times daily cetirizine (ZYRTEC) 10 mg, Daily Continuous Glucose Mutuel Department Manager (FreeStyle [place] 2 [place] Heart) device 1 each, Does not apply, Every 14 days diclofenac sodium 2 g, 4 times daily dilTIAZem ER (TIAZAC) 120 mg, Daily docusate sodium (COLACE) 100 mg, 2 times daily Eliquis 5 mg, 2 times daily Fluticasone-Salmeterol 250-50 MCG/ACT aerosol powder gabapentin (NEURONTIN) 300 mg HumaLOG KWIKPEN 100 UNIT/ML injection insulin aspart (NovoLOG) 100 UNIT/ML injection insulin detemir (Levemir) 100 UNIT/ML injection insulin glargine (LANTUS) 60 Units, Subcutaneous, Nightly insulin lispro protamine-insulin lispro (HumaLOG Mix 75-25) (75-25) 100 UNIT/ML suspension injection 20 Units, 2 times daily with meals levothyroxine (Synthroid, Levoxyl) 137 MCG tablet levothyroxine 137 mcg tablet TAKE 1 TABLET BY MOUTH EVERY DAY magnesium (as gluconate) (MAGONATE) 27 mg, Daily nystatin (Mycostatin) 181105 UNIT/GM powder 1 application , 2 times daily oxybutynin XL (Ditropan-XL) 10 MG 24 hr tablet rOPINIRole (REQUIP) 0.5 mg, 3 times daily spironolactone (ALDACTONE) 25 mg, 2 times daily Tradjenta 5 mg, Daily ALLERGIES: No Known Allergies Past Medical History: Diagnosis Date A-fib ([facility]) Arthritis Chronic kidney disease, stage 3b (HCC) ([facility]) Dietary counseling and surveillance Essential (primary) hypertension ([facility]) High cholesterol ([facility]) History of atrial fibrillation Hypertension ([facility]) USP (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 insulin ([facility]) Lymphedema Mixed hyperlipidemia ([facility]) Morbid obesity with body mass index (BMI) of 40.0 to 49.9 ([facility]) Sleep apnea Thyroid disorder ([facility]) Type 2 diabetes mellitus Type 2 diabetes mellitus with hyperglycemia ([facility]) Vitamin D deficiency, unspecified Past Surgical History: Procedure Laterality Date COLONOSCOPY HEART CATH HERNIA REPAIR umbilical OTHER SURGICAL HISTORY Watchman device implanted and removed REVIEW OF SYMPTOMS: 14 POINT OF SYSTEM REVIEWED AND NEGATIVE OBJECTIVE: Constitutional: Afebrile @ home; no weakness or night sweats SKIN: No change in skin color; no itching, rash or lesions; no hair loss; HEENT: No HAs or injury; no dizziness; No difficulty with vision; no eye pain, discharge or lesions; no hearing loss or difficulty; no nasal discharge, NECK: No pain, limitation of motion, lumps or swollen glands RESP: No cough, wheezing or difficulty breathing. No CP with breathing; CARDIO: No CP , SOB or fatigue, No edema, palpitations or dyspnea with exertion GI: No N/V/D or abd. pain; good appetite with no recent change. No heart burn, liver or gallbladder disease; no rectal bleeding or pain : No urinary pain , frequency or odor. MUSCULOSKELETAL: No muscle pain or cramps; no extremity weakness.No joint pain, stiffness, swelling or limitation of movement NEUROLOGY: No H/O seizures, stroke or fainting. No weakness, tremors. Hematology: No bleeding problems or excessive bruising ENDOCRINE: No increase in hunger, thirst or urination; admits compliance to medical management plan Feet: numbness tingling yes , ulcers or skin break no Lab Results Component Value Date HGBA1C 8.7 02/09/2025 HGBA1C 8.5 10/13/2024 Lab Results Component Value Date GLU 283 02/09/2025 GLU 100 10/13/2024 GLU 154 (H) 07/09/2024 04/08/2023 9:19 AM 06/09/2024 11:35 AM 09/03/2024 8:16 AM 10/13/2024 2:50 PM 11/26/2024 10:13 AM 02/04/2025 1:59 PM 02/09/2025 2:09 PM Vitals BMI 50.12 kg/m2 47.14 kg/m2 48.55 kg/m2 47.44 kg/m2 50.18 kg/m2 49.42 kg/m2 BSA (m2) 2.62 m2 2.6 m2 2.58 m2 2.61 m2 2.68 m2 2.66 m2 Systolic 122 138 120 124 Diastolic 70 80 78 82 Heart Rate 73 73 77 67 SpO2 95 % 94 % 95 % Resp 16 16 16 Height (in) 5' 7 5' 8 5' 7 5' 8 5' 8 5' 8 Weight (lb) 320 310 312 330 325 Visit Report Report Report Report Report Report ASSESSMENT AND PLAN: Assessment/Plan Diagnoses and all orders for this visit: Type 2 diabetes mellitus with hyperglycemia, with long-term current use of insulin ([facility]) - POCT glucose manually resulted - POCT glycosylated hemoglobin (Hb A1C) docked device Continue Lantus 55 at bedtime, Humalog 20 units every meal plus scale, Tradjenta 5 mg once a day. Insulin long-term use (CMS/HCC) Primary hypertension (CMS/HCC) Encounter for dietary consultation Hyperlipemia, mixed (CMS/HCC) Stage 3b chronic kidney disease (HCC) (CMS/HCC) Class 3 severe obesity due to excess calories with serious comorbidity and body mass index (BMI) of 45.0 to 49.9 in adult Diet and exercise reviewed with the patient Follow up in about 4 months (around 06/11/2025). documented in this encounter [facility] 02-04-2025 History of Present illness Narrative Images from the original note were not included. Joycelyn Hamm 1940 Joycelyn Hamm is a 84 y.o. female presents with chief complaint of Suspicious Right breast HPI: HPI Joycelyn lives at the assisted living in [place]. She had a mammogram in May 2024 that had microcalcs and was supposed to get a biopsy but due to insurance issues she never had it done. Since that time she moved into the assisted living and is now can do the biopsy if needed. She state her identical twin sister had breast cancer. SUBJECTIVE: MEDICATIONS: ALLERGIES Current Outpatient Medications Medication Instructions acetaminophen (TYLENOL) 650 mg, Every 4 hours PRN albuterol HFA (Ventolin HFA) 90 mcg/act inhaler allopurinol (ZYLOPRIM) 300 mg, Nightly ammonium lactate (Lac-Hydrin Five) 5 % lotion 1 Application, 2 times daily PRN atorvastatin (LIPITOR) 40 mg, Nightly B-D UF III MINI PEN NEEDLES 31G [facility] Blood Glucose Monitoring Suppl (True Metrix Meter) w/Device kit 1 Device, 3 times daily bumetanide (BUMEX) 2 mg Calcium Carbonate-Vitamin D (Oyster Shell Calcium/D) 500-5 MG-MCG tablet 1 tablet, 2 times daily cetirizine (ZYRTEC) 10 mg, Daily Continuous Glucose Mutuel Department Manager (FreeStyle [place] 2 [place] Heart) device 1 each, Does not apply, Every 14 days diclofenac sodium 2 g, 4 times daily dilTIAZem ER (TIAZAC) 120 mg, Daily docusate sodium (COLACE) 100 mg, Oral, 2 times daily Eliquis 5 mg, 2 times daily Fluticasone-Salmeterol 250-50 MCG/ACT aerosol powder gabapentin (Neurontin) 100 MG capsule gabapentin (NEURONTIN) 300 mg HumaLOG KWIKPEN 100 UNIT/ML injection insulin aspart (NovoLOG) 100 UNIT/ML injection insulin detemir (Levemir) 100 UNIT/ML injection insulin lispro protamine-insulin lispro (HumaLOG Mix 75-25) (75-25) 100 UNIT/ML suspension injection 30 Units, 2 times daily with meals levothyroxine (Synthroid, Levoxyl) 137 MCG tablet levothyroxine 137 mcg tablet TAKE 1 TABLET BY MOUTH EVERY DAY lidocaine (Lidoderm) 5 % patch lidocaine 5 % topical patch magnesium (as gluconate) (MAGONATE) 27 mg, Daily Myrbetriq 25 mg, Daily nystatin (Mycostatin) 232322 UNIT/GM powder 1 application , 2 times daily rOPINIRole (REQUIP) 0.5 mg, 3 times daily simvastatin (ZOCOR) 20 mg SITagliptin (JANUVIA) 100 mg spironolactone (ALDACTONE) 25 mg, 2 times daily Tradjenta 5 mg, Daily True Metrix Blood Glucose Test test strip USE DIRECTED 3 TIMES A DAY No Known Allergies PAST MEDICAL HISTORY: SOCIAL HISTORY SURGICAL HISTORY: Past Medical History: Diagnosis Date A-fib ([facility]) Arthritis Chronic kidney disease, stage 3b (HCC) ([facility]) Dietary counseling and surveillance Essential (primary) hypertension ([facility]) High cholesterol ([facility]) History of atrial fibrillation Hypertension ([facility]) USP (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 insulin ([facility]) Lymphedema Mixed hyperlipidemia ([facility]) Morbid obesity with body mass index (BMI) of 40.0 to 49.9 ([facility]) Sleep apnea Thyroid disorder ([facility]) Type 2 diabetes mellitus ([facility]) Type 2 diabetes mellitus with hyperglycemia ([facility]) Vitamin D deficiency, unspecified Social History Tobacco Use Smoking status: Never Smokeless tobacco: Never Substance Use Topics Alcohol use: Never Drug use: Never Past Surgical History: Procedure Laterality Date HEART CATH HERNIA REPAIR OTHER SURGICAL HISTORY Watchman device implanted and removed FAMILY HISTORY Family History Problem Relation Name Age of Onset Cancer Sibling REVIEW OF SYMPTOMS: Review of Systems Constitutional: Negative for diaphoresis and unexpected weight change. HENT: Negative for hearing loss, tinnitus and voice change. Respiratory: Positive for shortness of breath (with ambulation). Cardiovascular: Negative for chest pain and palpitations. Musculoskeletal: Positive for arthralgias. Neurological: Negative for dizziness, seizures and headaches. All other systems reviewed and are negative. Hematological: Negative for adenopathy. Does not bruise/bleed easily. OBJECTIVE: Visit Vitals Smoking Status Never Physical Exam Exam conducted with a automotive assembler present. HENT: Head: Normocephalic. Cardiovascular: Rate and Rhythm: Normal rate and regular rhythm. Pulmonary: Effort: Pulmonary effort is normal. Breath sounds: Normal breath sounds. Chest: Comments: Bilateral supraclavicular, infraclavicular, bicipital and axillary lymph nodes were found to be normal. Each breast was examined in the sitting and supine position, there was no evidence of masses, dimpling or discharge in either breast Abdominal: General: Abdomen is flat. Bowel sounds are normal. Palpations: Abdomen is soft. Skin: General: Skin is warm and dry. Neurological: Mental Status: She is alert. ASSESSMENT AND PLAN: Assessment/Plan Problem List Items Addressed This Visit None Visit Diagnoses Abnormal mammogram Relevant Orders Bilateral diagnostic mammogram with tomosynthesis Joycelyn had Bilateral Mamm's in 2023 that showed right breast microcalc's. Due to insurance issues, nothing was done. She now presents to shrimp picker where she left off. I suggest we repeat the imaging and if they calc's are stable we may consider just observation. If they have increased or changed she will need a biopsy. Once the imaging is completed I will review it and make further decisions on how to proceed. We will contact the patient with the results and recommendations. documented in this encounter [facility] 10-22-2024 History of Present illness Narrative Images from the original note were not included. Subjective : Chief Complaint: Joycelyn Hamm is an 83 y.o. female here for an annual wellness visit. I have reviewed and reconciled the history and medication list with the patient today. Current Outpatient Medications Medication Sig Dispense Refill acetaminophen (Tylenol) 325 MG tablet Take 650 mg by mouth every 4 (four) hours if needed for mild pain albuterol HFA (Ventolin HFA) 90 mcg/act inhaler allopurinol (Zyloprim) 300 MG tablet Take 300 mg by mouth at bedtime ammonium lactate (Lac-Hydrin Five) 5 % lotion Apply 1 Application topically 2 (two) times a day as needed for dry skin atorvastatin (Lipitor) 40 MG tablet Take 40 mg by mouth at bedtime B-D UF III MINI PEN NEEDLES 31G X 5 MM [facility] Blood Glucose Monitoring Suppl (True Metrix Meter) w/Device kit 1 Device in the morning and 1 Device in the evening and 1 Device before bedtime. bumetanide (Bumex) 2 MG tablet 2 mg. (Patient not taking: Reported on 10/13/2024) Calcium Carbonate-Vitamin D (Oyster Shell Calcium/D) 500-5 MG-MCG tablet Take 1 tablet by mouth in the morning and 1 tablet before bedtime. cetirizine (ZyrTEC) 10 MG tablet Take 10 mg by mouth Daily Continuous Glucose Mutuel Department Manager ([employer] [place] 2 [place] Heart) device 1 each every 14 (fourteen) days 1 each 0 diclofenac sodium 1 % gel Apply 2 g topically in the morning and 2 g at noon and 2 g in the evening and 2 g before bedtime. dilTIAZem ER (Tiazac) 120 MG 24 hr capsule 120 mg Daily Eliquis 5 MG tablet Take 5 mg by mouth in the morning and 5 mg before bedtime. Fluticasone-Salmeterol 250-50 MCG/ACT aerosol powder Advair Diskus 250 mcg-50 mcg/dose powder for inhalation Inhale 1 puff twice a day by inhalation route for 30 days. (Patient not taking: Reported on 10/13/2024) gabapentin (Neurontin) 100 MG capsule gabapentin 100 mg capsule TAKE 1 CAPSULE BY MOUTH AT BEDTIME IN ADDITION TO 600MG AT BEDTIME (Patient not taking: Reported on 10/13/2024) gabapentin (Neurontin) 300 MG capsule 300 mg 1 capsules in the am, 1 capsule in the afternoon, and 2 capsules at bedtime HumaLOG KWIKPEN 100 UNIT/ML injection INJECT 20 UNITS UNDER THE SKIN AT BREAKFAST, 30 UNITS AT LUNCH AND DINNER (Patient not taking: Reported on 09/03/2024) insulin aspart (NovoLOG) 100 UNIT/ML injection as directed Injection (Patient not taking: Reported on 09/03/2024) insulin detemir (Levemir) 100 UNIT/ML injection (Patient not taking: Reported on 10/13/2024) insulin lispro protamine-insulin lispro (HumaLOG Mix 75-25) (75-25) 100 UNIT/ML suspension injection Inject 30 Units under the skin in the morning and 30 Units in the evening. Inject with meals. levothyroxine (Synthroid, Levoxyl) 137 MCG tablet levothyroxine 137 mcg tablet TAKE 1 TABLET BY MOUTH EVERY DAY lidocaine (Lidoderm) 5 % patch lidocaine 5 % topical patch (Patient not taking: Reported on 10/13/2024) magnesium, as gluconate, (Magonate) 500 (27 Mg) MG tablet Take 27 mg by mouth Daily Myrbetriq 25 MG 24 hr tablet 25 mg Daily nystatin (Mycostatin) 602906 UNIT/GM powder Apply 1 application topically in the morning and 1 application before bedtime. Under breasts and abdominal folds. rOPINIRole (Requip) 0.5 MG tablet Take 0.5 mg by mouth in the morning and 0.5 mg in the evening and 0.5 mg before bedtime. simvastatin (Zocor) 20 MG tablet 20 mg. (Patient not taking: Reported on 10/13/2024) SITagliptin (Januvia) 100 MG tablet 100 mg. (Patient not taking: Reported on 10/13/2024) spironolactone (Aldactone) 25 MG tablet Take 25 mg by mouth in the morning and 25 mg before bedtime. Tradjenta 5 MG tablet Take 5 mg by mouth Daily True Metrix Blood Glucose Test test strip USE DIRECTED 3 TIMES A DAY (Patient not taking: Reported on 10/13/2024) No current facility-administered medications for this visit. List of current healthcare providers: Patient Care Team: Ji Smith CHIEF SCIENTIST, EXCELSIOR MACHINE FEEDER-C - General Dr. BUITRAGO- endocrinlogy Dr. Cabrera- Cardiology Dr. Gastelum-Podiatry Maricruz Valle- Food Scientist Dr. Lau- Pulmonary Medicare Annual Visit Over the past 2 weeks, how often have you been bothered by any of the following problems? Little interest or pleasure in doing things: Not at all Feeling down, depressed, or hopeless: Not at all Patient Health Questionnaire-2 Score: 0 Baig Fall Risk History of Falling, Immediate or Within 3 Months: No Secondary Diagnosis: No Ambulatory Aid: Crutches/cane/walker Health Risk Assessment Form Do you need help eating, bathing, using the toilet, dressing, or getting around your home?: No Can you prepare your own meals?: Yes Can you do your own housework without help?: Yes Can you shop for groceries or clothes without help?: Yes Do you exercise for about 20 minutes 3 or more days a week?: Yes How confident are you that you can control and manage most of your health problems?: Very confident Can you mange your money, credit cards and accounts, pay bills and taxes?: Yes Cognitive Screening Three Word Registration: Apple, Watch, Julisa Clock Drawing: Normal Clock - 2 Three Word Recall: All 3 words correct - 3 Total Score (0-5 Points): 5 Pain Assessment Pain Score: 5 - Moderate pain Advance Care Planning Do you have a living will?: No Do you have a medical power of trade mark attorney?: No Objective : Review of Systems Constitutional: Negative. HENT: Negative. Eyes: Negative. Respiratory: Negative. Cardiovascular: Negative. Genitourinary: Negative. Skin: Negative. Neurological: Negative. Psychiatric/Behavioral: Negative. Hematological: Negative. Endocrine: Negative. Allergic/Immunologic: Negative. Physical Exam Constitutional: Appearance: She is obese. HENT: Head: Normocephalic and atraumatic. Right Ear: Tympanic membrane, ear canal and external ear normal. Left Ear: Tympanic membrane, ear canal and external ear normal. Nose: Nose normal. Eyes: Extraocular Movements: Extraocular movements intact. Conjunctiva/sclera: Conjunctivae normal. Pupils: Pupils are equal, round, and reactive to light. Cardiovascular: Rate and Rhythm: Normal rate and regular rhythm. Heart sounds: Normal heart sounds. Pulmonary: Effort: Pulmonary effort is normal. Breath sounds: Normal breath sounds. Abdominal: General: Bowel sounds are normal. There is no distension. Palpations: Abdomen is soft. Tenderness: There is no abdominal tenderness. There is no guarding. Musculoskeletal: Cervical back: Normal range of motion and neck supple. Comments: Gait is steady with the use of a rollator Skin: General: Skin is warm and dry. Neurological: General: No focal deficit present. Mental Status: She is alert and oriented to person, place, and time. Psychiatric: Mood and Affect: Mood normal. Behavior: Behavior normal. Thought Content: Thought content normal. Judgment: Judgment normal. Assessment/Plan : The following health maintenance schedule was reviewed with the patient and provided in printed form in the after visit summary: Health Maintenance Topic Date Due Influenza Vaccine (1) 07/05/2024 Pneumococcal Vaccine: 65+ Years Completed Advance Care Planning 1. Medicare annual wellness visit, subsequent (Primary) 2. Diabetic peripheral neuropathy ([facility]) This pt reports that she has been doing well with her pain. She continues with the use of gabapentin and tylenol. 3. Disorder of nervous system due to type 2 diabetes mellitus ([facility]) Levemir and novolog continue. Will continue to monitor. A1C 10/13/24-8.6 4. DESTINY (obstructive sleep apnea) Cpap, followed per Pulmonary. She is stable. 5. PLMD (periodic limb movement disorder) Monitor. Stable. 6. Polyneuropathy Gabapentin continues. 7. Restless legs Ropinirol continues. Stable. 8. Essential hypertension ([facility]) Spironalactone continues. Stable bp's. 9. Venous insufficiency Stable. 10. Atrial enlargement, bilateral Cardiology follows. Stable. 11. Benign hypertensive heart disease without congestive heart failure ([facility]) Spironalactone, bumex continue, Followed per cardiology. Stable. 12. Bradycardia Stable. 13. LVH (left ventricular hypertrophy) Stable. 14. Nonrheumatic mitral valve regurgitation Stable 15. PAF (paroxysmal atrial fibrillation) ([facility]) Eliquis continues. Followed per Cardiology. 16. Pulmonary hypertension ([facility]) Stable. Followed per pulmonary and cardiology. 17. Paroxysmal atrial fibrillation ([facility]) 18. Pain in both feet Acetaminophen continues as ordered. 19. Bilateral leg edema Bumex continues. Lymphedema pumps continue. 20. Degeneration of intervertebral disc of lumbar region with discogenic back pain Stable. Tylenol continues. 21. Primary osteoarthritis of both knees Acetaminophen continues, stable. 22. Lymphedema of lower extremity Lymph pumps continue 23. Acquired hypothyroidism ([facility]) Levothyroxine continues. Followed per Endocrinology TSH 0.49 - 4.67 uIU/mL 3.10 T4, free 0.61 - 1.60 ng/dL 1.03 24. Morbid obesity ([facility]) Stable 25. Stage 3 chronic kidney disease due to type 2 diabetes mellitus (HCC) ([facility]) Will continue to monitor the patients labs, Stable. Sodium 134 - 146 mmol/L 142 139 140 POTASSIUM, SERUM 3.5 - 5.0 mmol/L 4.3 4.0 4.0 Chloride 98 - 109 mmol/L 105 98 100 CO2 22 - 32 mmol/L 27 31 29 ANION GAP 5 - 15 mmol/L 10 10 11 BUN 5 - 27 mg/dL 30 High 34 High 31 High Creatinine 0.40 - 1.00 mg/dL 1.21 High 1.37 High CM 1.33 High CM Comment: METHOD TRACEABLE TO IDMS STANDARD Glucose 65 - 99 mg/dL 154 High 179 High 155 High 252 High R 208 High R 205 High R 238 High R Calcium 8.5 - 10.5 mg/dL 9.3 9.1 9.1 Total Protein 6.0 - 8.0 g/dL 6.9 7.3 Albumin 3.2 - 5.3 g/dL 4.0 4.1 Alkaline Phosphatase 39 - 130 U/L 46 55 AST 0 - 41 U/L 28 20 ALT (SGPT) 0 - 31 U/L 20 16 Total Bilirubin 0.3 - 1.2 mg/dL 1.3 High 1.0 eGFR (CKD-EPI)non-race dependent >59 ml/min/1.73sq.m 44 Low 38 Low CM 39 Low 26. Vitamin D deficiency Stable. Will repeat labs. 27. Pure hypercholesterolemia ([facility]) Cholesterol 150 - 200 mg/dL 116 Low 112 Low Triglycerides 27 - 150 mg/dL 148 179 High HDL Cholesterol >39 mg/dL 36 Low 34 Low CM Comment: HDL <40 mg/dL - High Risk HDL > or = 40mg/dL- Desirable HDL >60 mg/dL - Negative Risk VLDL Cholesterol 0 - 30 mg/dL 30 36 High LDL Calculated <130 mg/dL 50 42 CM Comment: LDL <100 mg/dL - Desirable LDL >160 mg/dL - High Risk CHOLESTEROL/HDL RATIO 1.0 - 5.0 3.2 28. Mild depression (CMS/HCC) Stable. No orders of the defined types were placed in this encounter. Electronically signed by Carmen Smith NP on November 13, 2024 documented in this encounter [facility] 10-20-2024 Telephone encounter Note Pt would like Freestyle william sent to a diabetic supply company that will ship to her in the correction please and thank you. [facility] 10-20-2024 Miscellaneous Notes Pt would like Freestyle william sent to a diabetic supply company that will ship to her in the correction please and thank you. documented in this encounter [facility] 10-19-2024 History of Present illness Narrative Images from the original note were not included. Patient presents today to shrimp picker their extra depth diabetic shoes and 3 pairs of heat molded inserts. Shoes were ordered from [employer], style Casual [employer]fort, size 10XW. Required paperwork has been completed including needed documentation from the patient's PCP/Doll Dresser. No other complaints. Examination: General Examination: GENERAL EXAMINATIONpleasant, well nourished, well developed, in no acute distress. FOOT EXAM: Date of Last Foot Exam 10/19/24 Vascular: DORSALIS PEDIS PULSE:0/4 bilateral. POSTERIOR TIBIAL [...] intact. SKIN PATHOLOGY:thin, decreased hair growth bilateral. Orthopedic: FOOT MORPHOLOGY:Planus. JOINT RANGE OF MOTION:without pain or crepitus. DEFORMITIES:Mild hammertoe deformities 2 through 4 bilateral. MUSCLE STRENGTH5/5 for all pedal groups tested. Diabetic Shoe & Insert: Previous amputation of the other foot, or part of the foot: No History of previous foot ulceration of foot: Yes History of pre-ulcerative callous of foot: No Peripheral of Neuropathy with evidence of callous formation: Yes Foot deformity: Yes Poor circulation: Yes Patient has a lot of swelling currently but she wants to take the shoes to try them once she has her pumps and her swelling is resolved. Assessment: 1. Diabetes mellitus without complication - E11.9 (Primary) 2. Dermatophytosis of nail - B35.1 3. Pain in left foot - M79.672 4. Pain in right foot - M79.671 5. Venous insufficiency - I87.2 6. Edema of both legs - R60.0 Plan: Diabetes: Patient was fitted for and dispensed their extra depth diabetic shoes (A5500). Patient was instructed on the gradual break-in of the shoes and inserts. Patient also instructed on use of the heat molded insoles (A5512) and to replace these every 3-4 months. There is certification from the physician managing the patients diabetes. Three pairs of heat molded inserts were taken from stock, which had been ordered from the supplier. These inserts have PDAC approval. All inserts were heated and molded to assure the inserts were in full contact with the plantar aspect of the feet in accordance with the TSP[employer] policy. Good fit of the shoes and insoles was confirmed at the time of dispensation. Their purpose is to allow extra depth and to accommodate the patients anatomy and deformity to prevent ulceration, irritation, or other complications associated with the patients medical history. Use of rotating new pair of insoles was discussed. Proper use and care were reviewed. They are able to ambulate without distress in shoes and insoles. The diabetic shoes fit well when sized to the patients feet. The patient was evaluated by the physician while wearing the diabetic shoes and insoles and the fit was found to be satisfactory. Acknowledgement for receiving was signed. At that time, the shoes and insoles were dispensed, it was suitable for their condition and not substandard. Written and verbal instructions and warranty information were given as well as the list of the current Durable Medical Equipment Supplier Guidelines and Complaint Resolution if requested. All questions were answered and they were instructed to call the office with any questions or problems, and the patient is to watch for areas of rubbing, blister formation, or any other signs of abnormal pressure. If this occurs, the patient is to contact the office immediately. Patient is to follow up in 3 weeks for recheck or as scheduled. documented in this encounter [facility] 10-13-2024 History of Present illness Narrative Joycelyn Hamm is a 83 y.o. female Danay Hebert MD presents with chief complaint of Diabetes and Follow-up HPI: IM 10/2024 follow up visit on 10/13/2024 A1c 8.5 , bg 100 on levemir 100 units qhs, Humalog 20-30-30 units . TRADJENT 5 MG DAILY. In [place] now. IM 06/2024 follow up visit on 06/09/2024 A1c 7.5 , bg 168 on levemir 100 units qhs, Humalog 20-30-30 units . TRADJENT 5 MG DAILY. CGM free william 2 3-91-6 avg 133. IM 03/2024 follow up visit on 03/10/2024 A1c 7.1 , bg 86 on levemir 100 units qhs, Humalog 20-30-30 units . TRADJENT 5 MG DAILY. lab vit d 36, GFR 38, TC 124, HDL 48, LDL 51, AL/CR 37. IM 11/2023 follow up visit on 11/12/2023 A1c 8.6, bg 278 on levemir 100 units qhs, Humalog 20-30-30 units . TRADJENT 5 MG DAILY not sure. CGM 164-35 avg 162. IM 07/2023 follow up visit on 07/16/2023 A1c 7.7, bg 189 on levemir 100 units qhs, now Humalog 20-30-30 units . TRADJENT 5 MG DAILY not sure. CGM - avg 135 IM 03/2023 follow up visit on 03/20/2023 A1c 8, bg 264 on levemir 100 units qhs, now Humalog 20-30-30 units . TRADJENT 5 MG DAILY not sure. CGM done IM 12/2022 follow up visit on 12/14/2022 A1c 7.5 , bg 134 on levemir 100 units qhs, novolog 20-30-30 units . TRADJENT 5 MG DAILY not sure. lab on 11/2022 GFR 39, AL/CR 100 IM 09/2022 follow up visit on 09/11/2022 A1c 8.5 , bg 164. on levemir 100 units qhs and 30 units am , novolog 20-30-30 units . TRADJENT 5 MG DAILY not sure. CGM 0-23 AVG 157 IM 06/2022 follow up visit on 07/03/2022 A1c 7.2 , bg 208. on levemir 100 units qhs, novolog 20-20-30 units . TRADJENT 5 MG DAILY not sure. IM 03/2022 follow up visit on 03/20/2022 A1c 7.9 , bg 317. on levemir 100 units qhs, novolog 20-20-30 units . TRADJENT 5 MG DAILY CGM 070-25 avg 148 IM 11/2021 follow up visit on 11/15/2021 A1c 8.2, bg 244. on levemir 100 units qhs, novolog 20-20-30 units . lab c peptide 7.2, cr 1.5, GFR 33, TC 144, HDL 38, TG 166, LDL 72, vit d 32 HPI: 07/2021 New patient sent with her niece for uncontrolled diabetes. A1C in the office 8.6, blood sugar 177. She is morbidly obese: Body mass index 47. She is currently on Levemir 30 units in the morning; 100 at bedtime and NovoLog 20 units breakfast, 30 lunch, 30 supper. Not on any other tablets. She has a-fib taking Eliquis. Last CGM was Freestyle; low 1%, 72 in good %, 27% high range and average 156. One day she called her niece while she was on continuous away from house and told her I take too much insulin , so her niece is worried about her; the two insulins are confusing and she wonders if she is eligible for pump insulin. I told that this needs more work and the need to check more blood sugars. SUBJECTIVE: MEDICATIONS: Current Outpatient Medications Medication Instructions acetaminophen (TYLENOL) 650 mg, Every 4 hours PRN albuterol HFA (Ventolin HFA) 90 mcg/act inhaler allopurinol (ZYLOPRIM) 300 mg, Nightly ammonium lactate (Lac-Hydrin Five) 5 % lotion 1 Application, Topical, 2 times daily PRN atorvastatin (LIPITOR) 40 mg, Nightly B-D UF III MINI PEN NEEDLES 31G X 5 MM [facility] [place] Blood Glucose Monitoring Suppl (True Metrix Meter) w/Device kit 1 Device, 3 times daily bumetanide (BUMEX) 2 mg Calcium Carbonate-Vitamin D (Oyster Shell Calcium/D) 500-5 MG-MCG tablet 1 tablet, 2 times daily cetirizine (ZYRTEC) 10 mg, Daily Continuous Glucose Mutuel Department Manager ([employer] [place] [address] [place] [facility]) device 1 each, Every 14 days diclofenac sodium 2 g, 4 times daily dilTIAZem ER (TIAZAC) 120 mg, Daily Eliquis 5 mg, 2 times daily Fluticasone-Salmeterol 250-50 MCG/ACT aerosol powder Advair Diskus 250 mcg-50 mcg/dose powder for inhalation Inhale 1 puff twice a day by inhalation route for 30 days. gabapentin (Neurontin) 100 MG capsule gabapentin 100 mg capsule TAKE 1 CAPSULE BY MOUTH AT BEDTIME IN ADDITION TO 600MG AT BEDTIME gabapentin (NEURONTIN) 300 mg HumaLOG KWIKPEN 100 UNIT/ML injection INJECT 20 UNITS UNDER THE SKIN AT BREAKFAST, 30 UNITS AT LUNCH AND DINNER insulin aspart (NovoLOG) 100 UNIT/ML injection as directed Injection insulin detemir (Levemir) 100 UNIT/ML injection insulin lispro protamine-insulin lispro (HumaLOG Mix 75-25) (75-25) 100 UNIT/ML suspension injection 30 Units, 2 times daily with meals levothyroxine (Synthroid, Levoxyl) 137 MCG tablet levothyroxine 137 mcg tablet TAKE 1 TABLET BY MOUTH EVERY DAY lidocaine (Lidoderm) 5 % patch lidocaine 5 % topical patch magnesium (as gluconate) (MAGONATE) 27 mg, Daily Myrbetriq 25 mg, Daily nystatin (Mycostatin) [id number] UNIT/GM powder 1 application , 2 times daily rOPINIRole (REQUIP) 0.5 mg, 3 times daily simvastatin (ZOCOR) 20 mg SITagliptin (JANUVIA) 100 mg spironolactone (ALDACTONE) 25 mg, 2 times daily Tradjenta 5 mg, Daily True Metrix Blood Glucose Test test strip USE DIRECTED 3 TIMES A DAY ALLERGIES: No Known Allergies Past Medical History: Diagnosis Date A-fib ([facility]) Arthritis Chronic kidney disease, stage 3b (HCC) ([facility]) Dietary counseling and surveillance Essential (primary) hypertension ([facility]) High cholesterol ([facility]) History of atrial fibrillation Hypertension ([facility]) 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 ([facility]) Lymphedema Mixed hyperlipidemia ([facility]) Morbid obesity with body mass index (BMI) of 40.0 to 49.9 ([facility]) Sleep apnea Thyroid disorder ([facility]) Type 2 diabetes mellitus ([facility] [place] Type 2 diabetes mellitus with hyperglycemia ([facility] [place]) Vitamin D deficiency, unspecified Past Surgical History: Procedure Laterality Date HEART CATH HERNIA REPAIR OTHER SURGICAL HISTORY Watchman device implanted and removed REVIEW OF SYMPTOMS: 14 POINT OF SYSTEM REVIEWED AND NEGATIVE OBJECTIVE: Constitutional: Afebrile @ home; no weakness or night sweats SKIN: No change in skin color; no itching, rash or lesions; no hair loss; HEENT: No HAs or injury; no dizziness; No difficulty with vision; no eye pain, discharge or lesions; no hearing loss or difficulty; no nasal discharge, NECK: No pain, limitation of motion, lumps or swollen glands RESP: No cough, wheezing or difficulty breathing. No CP with breathing; CARDIO: No CP , SOB or fatigue, No edema, palpitations or dyspnea with exertion GI: No N/V/D or abd. pain; good appetite with no recent change. No heart burn, liver or gallbladder disease; no rectal bleeding or pain : No urinary pain , frequency or odor. MUSCULOSKELETAL: No muscle pain or cramps; no extremity weakness.No joint pain, stiffness, swelling or limitation of movement NEUROLOGY: No H/O seizures, stroke or fainting. No weakness, tremors. Hematology: No bleeding problems or excessive bruising ENDOCRINE: No increase in hunger, thirst or urination; admits compliance to medical management plan Feet: numbness tingling yes , ulcers or skin break no Lab Results Component Value Date HGBA1C 8.5 10/13/2024 Lab Results Component Value Date GLU 100 10/13/2024 GLU 154 (H) 07/09/2024 GLU 179 (H) 01/23/2024 Visit Vitals BP 120/78 Pulse 73 Resp 16 Ht 5' 8 Wt 312 lb BMI 47.44 kg/m Smoking Status Never BSA 2.61 m ASSESSMENT AND PLAN: Assessment/Plan Diagnoses and all orders for this visit: Type 2 diabetes mellitus with hyperglycemia, with long-term current use of insulin ([facility]) - POCT glucose manually resulted - POCT glycosylated hemoglobin (Hb A1C) docked device We will continue with Levemir 100 units at bedtime, Humalog 20-30-30, Tradjenta 5 mg once a day. Insulin long-term use ([facility]) Primary hypertension ([facility]) Encounter for dietary consultation Hyperlipemia, mixed ([facility]) Stage 3b chronic kidney disease (HCC) ([facility]) Class 3 severe obesity due to excess calories with serious comorbidity and body mass index (BMI) of 45.0 to 49.9 in adult ([facility]) Diet and exercise reviewed with the patient Follow up in about 4 months (around 02/11/2025). documented in this encounter [facility] 09-15-2024 History of Present illness Narrative Images from the original note were not included. HPI: Patient presents in office today for diabetic nail care. Patient is Type 2 Diabetic. She states that over the years her nails have become long, thick, and hard to trim on her own. Rt great toe she feels like nail is growing into the skin, painful with socks and shoes. She has no other concerns today. Side: both. Location: all toes. Duration: years. Severity of symptoms: 6. Onset: Gradual. Frequency: Constant. Status: The same. Context: Walking. NAILS: Thick,discolored. Associated Symptoms: diabetes,cramping in the feet/legs,numbness/tingling in the feet/legs. Relieved by: nothing. Previous Treatment: soaking. History of ulcers/wounds: No. Has treatment helped with pain: No. Recent BS reading, if diabetic: 154 PCP: Dr Rachel Blunt, Dr. Brown. Date of Last visit: 07/19/2024 Patient would like to be fitted for a new pair of DM shoes and inserts at today's office visit. The catalog's were dispensed and patient is going to select a pair and be fitted. They are aware of the required paperwork that needs to be completed to order these devices and the timeframe associated with this. Examination: General Examination: GENERAL EXAMINATIONpleasant, well nourished, well developed, in no acute distress. FOOT EXAM: Date of Last Foot Exam 09/15/24 Vascular: DORSALIS PEDIS PULSE:0/4 bilateral. POSTERIOR TIBIAL [...] discolored, crumbly, dystrophic and with subungal debris, incurvated to the medial and lateral border. 2elongated, thick, discolored, crumbly, dystrophic and with subungal debris. 3elongated, thick, discolored, crumbly, dystrophic and with subungal debris. 4elongated, thick, discolored, crumbly, dystrophic and with subungal debris. 5elongated, thick, discolored, crumbly, dystrophic and with subungal debris. Nail Pathology: Right Foot: 1 (great toe)elongated, thick, discolored, crumbly, dystrophic and with subungal debris, incurvated to the medial and lateral border. 2elongated, thick, [...] weeks or as needed if problems arise. Diabetes: 1. A Diabetic Foot Screening Exam was performed and the patient was educated on the foot complications related to Diabetes. Instructed to contact our office if any foot problems develop before next visit. 2. Patient was instructed on the continued importance of diabetic foot care along with proper diet and keeping their blood sugar under control to prevent complications. 3. Patient would like to proceed with extra depth diabetic shoes and insoles. We discussed the needed paperwork from their PCP in order to proceed with ordering these if they would like to obtain them. The patient fits the criteria for shoes and inserts based upon diabetes, prior ulceration, lymphedema. Patient was fitted in length and width of each foot to determine sizine. Shoes will be ordered along [facility] 3 pairs of heat molded insoles. 4. Patient will be contacted when the necessary paperwork is completed to schedule an appointment for pick-up. documented in this encounter [facility] 08-11-2024 Note [facility] Consult Note [facility] Reason for visit: Afib HPI: Joycelyn Hamm is a 83 y.o. year old with past medical history of cryo A-fib ablation done by Dr. Estrada in December 2018 with a postprocedural complication of femoral artery tear which was subsequently surgically corrected. She is now a resident of [facility] and has limited activity, She has no chest pain, palpatations, and dizziness. PMH: No past medical history on file. PSH: Past Surgical History: Procedure Laterality Date ABLATION COLPOCLESIS HERNIA REPAIR SH: Social Determinants of Health Tobacco Use: Low Risk (08/11/2024) Patient History Smoking Tobacco Use: Never Smokeless Tobacco Use: Never Passive Exposure: Not on file Alcohol Use: Not on file Financial Resource Strain: Not on file Food Insecurity: Not on file Transportation Needs: Not on file Physical Activity: Not on file Stress: Not on file Social Connections: Not on file Intimate Partner Violence: Not on file Depression: Not on file Housing Stability: Not on file Utilities: Not on file Allergies: No Known Allergies Weight: 146kg Visit Vitals BP 145/67 (BP Location: Right wrist, Patient Position: Sitting) Pulse 61 Ht 1.727 m (5' 8 ) Wt (!) 146 kg (321 lb) SpO2 98% BMI 48.81 kg/m??? Smoking Status Never BSA 2.65 m??? Meds: Current Outpatient Medications on File Prior to Visit Medication Sig Dispense Refill albuterol 90 mcg/actuation inhaler INHALE 2 PUFFS 4 TIMES A DAY NEEDED allopurinol (Zyloprim) 300 mg tablet 300 mg. atorvastatin (Lipitor) 40 mg tablet 40 mg. calcium carbonate 600 mg calcium (1,500 mg) tablet 600 mg. cetirizine (ZyrTEC) 10 mg tablet 10 mg. dilTIAZem CD (Cardizem CD) 120 mg 24 hr capsule Eliquis 5 mg tablet 5 mg. gabapentin (Neurontin) 100 mg capsule Take 1 capsule by mouth at bedtime. Levemir FlexPen 100 unit/mL (3 mL) injection pen Instructions: INJECT 100 UNITS SUBCUTANEOUSLY AT BEDTIME. levothyroxine (Synthroid, Levoxyl) 137 mcg tablet 137 mcg. mirabegron (Myrbetriq) 25 mg tablet extended release 24 hr Take 50 mg by mouth in the morning. rOPINIRole (Requip) 0.25 mg tablet 0.5 mg. spironolactone (Aldactone) 25 mg tablet 25 mg. No current facility-administered medications on file prior to visit. ROS: Review of Systems Cardiovascular: Positive for leg swelling. Respiratory: Positive for shortness of breath. All other systems reviewed and are negative. Physical Exam: Constitutional General Appearance: well-nourished, well-developed, appears stated age Level of Distress: comfortable Psychiatric Mental Status: alert, normal affect Orientation: oriented to time, place, and person Insight: good judgement Eyes Lids and Conjunctivae: non-injected, no xanthelasma ENMT Ears: no lesions on external ear Nose: no lesions on external nose Oropharynx: no cyanosis, no pallor Neck Neck: supple, trachea midline Carotid Arteries: bilateral normal upstroke, no bruits Jugular Veins: normal jugular venous pressure Thyroid: not enlarged Lungs Respiratory Effort: unlabored Chest Exam: normal curvature, no thoracic deformity Auscultation: clear, no wheezing, no rales, no rhonchi Cardiovascular Rate And Rhythm: regular Heart Sounds: normal S1, normal s2, no gallop Systolic Murmur: not heard Diastolic Murmur: not heard Extremities: no cyanosis, no edema, no peripheral signs of emboli Peripheral Pulses Radial Pulse: normal Abdomen Inspection and Palpation: soft, non distended, no bruit, non tender Musculoskeletal Inspection: no joint swelling Neurologic Gait: normal gait Skin Inspection and Palpation: warm and dry Nails: no clubbing Labs: @LABRESULTS@ No results found for: CHOLESTEROL TOTAL , HDL , LDL CALC , LDL DIRECT , TRIGLYCERIDES , TSH , T3 TOTAL , T4 TOTAL , THYROID PEROXIDASE AB , BNP EKG: No results found for this or any previous visit (from the past 4464 hour(s)). Echo: 11/01/23 Left Ventricle: There is moderate increased wall thickness/hypertrophy. Systolic function is normal with an ejection fraction of 65-70%. Mitral Valve: There is trace regurgitation. There is no evidence of mitral valve stenosis. Tricuspid Valve: There is trace regurgitation. There is no evidence of tricuspid valve stenosis. RVSP calculated at 34 mmHg. RVSP is based on RA pressure of 3 mmHg. There is borderline elevated pulmonary hypertension. Left Ventricle Left ventricle appears normal in size. There is moderate increased wall thickness/hypertrophy. Systolic function is normal with an ejection fraction of 65-70%. No segmental wall motion abnormalities. Diastolic function assessment is indeterminate. Lateral E' is 6.69 cm/s. Medial E' is 8.22 cm/s. Right Ventricle Right ventricle was not well visualized. Left Atrium Left atrium is normal in size. The left atrial volume index is 31.5 mL/m2. Right Atrium (more content not included)... [facility] 07-23-2024 Note Education Materials Endocrinology Blood Glucose Monitoring, Adult To manage your diabetes, you will need to keep track of your blood sugar (glucose). Check your blood glucose as often as told. Keep a record of your results over time. This can help you: ? Know when to adjust your diabetes management plan with your health care provider. ? See how food, exercise, illness, and medicines affect your blood glucose. ? Know what your blood glucose is at any time. Your provider will set specific goals for your blood glucose levels. In many cases, these goals may be: ? Before meals (preprandial): 80?130 mg/dL (4.4?7.2 mmol/L). ? After meals (postprandial): below 180 mg/dL (10 mmol/L). ? A1C level: less than 7%. Supplies needed: ? Blood glucose meter. ? Test strips for your meter. Each meter has its own strips. You must use the strips that came with your meter. ? A needle to prick your finger (lancet). Do not use a lancet more than once. ? A device that holds the lancet (lancing device). ? A journal or logbook to write down your results. How to check your blood glucose Checking your blood glucose 1. Wash your hands with soap and water for at least 20 seconds. 2. Prick the side of your finger with the lancet. Do not prick the tip of your finger. Do not use the same finger more than once. 3. Gently rub the finger until a small drop of blood appears. 4. Follow the instructions that came with the meter about how to insert the test strip, apply blood to the strip, and use the meter. 5. Write down your result and any notes. Using alternative sites Some meters let you use other areas of your body (alternative sites) to test your blood. The most common places are the forearm, the thigh, and the palm of your hand. Alternative sites may not be as accurate as your fingers. The result you get may also be delayed. Use the finger only, and do not use alternative sites, if: ? You think you have low blood glucose (hypoglycemia). ? You sometimes do not know that your blood glucose is getting low (hypoglycemia unawareness). General tips and recommendations Blood glucose log ? Write down the result each time you check your blood glucose. Note anything that may be affecting your blood glucose. This can help you and your provider: ? Look for patterns over time. ? Adjust your management plan as needed. ? Check if your meter has an christina or lets you download your records to a computer. Most meters keep a record of glucose readings in the meter. If you have type 1 diabetes: ? You may need to check your blood glucose 4 or more times a day. Check your blood glucose as often as told by your provider. This may include: ? Before each meal and snack. ? Two hours after a meal. ? Before bedtime. ? If you have symptoms of hypoglycemia. ? After treating your hypoglycemia. ? Before doing things that have a risk of injury, such as driving or using machinery. ? Before and after exercise. ? Between 2:00 a.m. and 3:00 a.m., as told. ? You may need to check your blood glucose more often, such as up to 6?10 times a day, if: ? You have diabetes that is not well controlled. ? You are ill. ? You have a history of severe hypoglycemia. ? You have hypoglycemia unawareness. If you have type 2 diabetes: ? You may need to check your blood glucose 2 or more times a day. Check your blood glucose as often as told by your provider. This may include: ? Before and after exercise. ? Before doing things that have a risk of injury, such as driving or using machinery. ? You may need to check your blood glucose more often if: ? Your medicine is being adjusted. ? Your diabetes is not well controlled. ? You are ill. General tips ? Make sure you always have your supplies with you. ? After you use a few boxes of test strips, adjust (calibrate) your blood glucose meter. Follow the instructions that came with your meter. ? If you have questions or need help, all blood glucose meters have a 24-hour hotline phone number that you can call. Also contact your provider with any questions or concerns. Where to find more information ? The [place] [employer]: diabetes.org ? The Association of Diabetes Care & Education Specialists: diabeteseducator.org Contact a health care provider if: ? Your blood glucose is at or above 240 mg/dL (13.3 mmol/L) for 2 days in a row. ? You have been sick or have had a fever for 2 days or longer and are not getting better. ? You have any of these problems for more than 6 hours: ? You cannot eat or drink. ? You have nausea or vomiting. ? You have diarrhea. Get help right away if: ? Your blood glucose is lower than 54 mg/dL (3 mmol/L). ? You become confused, or you have trouble thinking clearly. ? You have trouble breathing. ? You have moderate to high ketone levels in your pee (urine). These symptoms may be an emergency. Get h (more content not included)... [facility] 07-23-[address] [facility] Discharge Summary PERSON INFORMATION Name JOYCELYN HAMM Age 83 Years 1940 Sex FEMALE Language Bangladeshi PCP Chad Hwang MD Marital Status Single Med Service Observation Acct# Arrival 07/18/2024 19:51:24 Visit Reason Hyperglycemia; Hyperglycemia; DEHYDRATION Acuity LOS 004 16:53 Address: [address] [place] [id number] Comment: PROVIDER INFORMATION VITALS INFORMATION Vital Sign Triage Latest Temp Oral 37 DegC 36.3 DegC Temp Temporal 36.8 DegC 36.3 DegC Temp Intravascular Temp Axillary Temp Rectal 02 Sat 96 % 95 % Respiratory Rate 18 br/min 18 br/min Peripheral Pulse Rate 80 bpm 67 bpm Apical Heart Rate Blood Pressure 150 mmHg / 70 mmHg 145 mmHg / 71 mmHg Comment: MEDICAL INFORMATION Allergy Info: No known allergies Medication List: New Medications Other Medications cefuroxime (cefuroxime 250 mg oral tablet) 2 tab(s) Oral (given by mouth) 2 times per day for 2 Days. MAGRU. Medications That Were Updated - Follow Below Instructions Other Medications Updated: gabapentin (gabapentin 300 mg oral capsule) 2 cap(s) Oral (given by mouth) 2 times per day. Medications to Continue That Have Not Changed Other Medications allopurinol (allopurinol 300 mg oral tablet) 1 tab(s) Oral (given by mouth) every day. apixaban (Eliquis 5 mg oral tablet) 1 tab(s) Oral (given by mouth) 2 times per day. atorvastatin (atorvastatin 40 mg oral tablet) 1 tab(s) Oral (given by mouth) every day. calcium carbonate (calcium (as carbonate) 600 mg oral tablet) 1 tab(s) Oral (given by mouth) every day. calcium-vitamin D (calcium (as carbonate)-vitamin D 600 mg-20 mcg (800 intl units) oral tablet, chewable) 1 tab(s) Chewed 2 times per day. cetirizine (cetirizine 10 mg oral tablet) 1 tab(s) Oral (given by mouth) every day. dilTIAZem (Tiadylt ER 120 mg/24 hours oral capsule, extended release) 1 cap(s) Oral (given by mouth) every day. TAKE 1 CAPSULE (120 MG TOAL) BY MOUTH IN THE MORNING. Durable Medical Equipment for Prescription (ATORVASTATIN CALCIUM 40 MG TABS) See instructions. insulin detemir (Levemir FlexPen 100 units/mL subcutaneous solution) INJECT 100 UNITS SUBCUTANEOUSLY AT BEDTIME.. insulin lispro (HumaLOG KwikPen 100 units/mL injectable solution) 75 mL, 0 Refill(s), INJECT 20 UNITS AT BREKFAST 30 UNITS AT LUNCH AND 30 UNITS AT DINNER SUB (TOTAL DAILY DOSE 80 UNITS). levothyroxine (levothyroxine 137 mcg (0.137 mg) oral tablet) 1 tab(s) Oral (given by mouth) every day. linagliptin (Tradjenta 5 mg oral tablet) 1 tab(s) Oral (given by mouth) every day. magnesium gluconate (magnesium gluconate 500 mg oral tablet) 1 tab(s) Oral (given by mouth) every day. mirabegron (Myrbetriq 25 mg oral tablet, extended release) 1 tab(s) Oral (given by mouth) every day. rOPINIRole (rOPINIRole 0.5 mg oral tablet) 1 tab(s) Oral (given by mouth) 3 times per day. spironolactone (spironolactone 25 mg oral tablet) 1 tab(s) Oral (given by mouth) 2 times per day. No Longer Take the Following Medications bumetanide (bumetanide 2 mg oral tablet) 1 tab(s) Oral (given by mouth) every day. Comment: Lab and Radiology Results Laboratory or Other Results This Visit (last charted value for your 07/18/2024 visit) Hematology 07/23/2024 4:56 AM Hct: 42.5 % -- Normal range between ( 33.7 and 40.4 ) Hgb: 13.9 gm/dL -- Normal range between ( 11.3 and 15.9 ) MCH: 30 pg -- Normal range between ( 24 and 34 ) MCHC: 33 gm/dL -- Normal range between ( 26 and 37 ) MCV: 90 fL -- Normal range between ( 81 and 100 ) MPV: 9.2 fL -- Normal range between ( 6.3 and 10.2 ) Platelet: 217 x103/mcL -- Normal range between ( 138 and 427 ) RBC: 4.71 x106/mcL -- Normal range between ( 3.70 and 5.30 ) RDW: 17.1 % -- Normal range between ( 11.5 and 15.0 ) WBC: 8.4 x103/mcL -- Normal range between ( 3.5 and 10.5 ) Auto Eos %: 4.3 % -- Normal range between ( 0.9 and 4.0 ) Auto Lymph %: 45 % -- Normal range between ( 14 and 48 ) Auto Neut %: 42 % -- Normal range between ( 44 and 88 ) Eos Abs#: 0.4 x103/mcL -- Normal range between ( 0.0 and 0.4 ) Lymph Abs#: 3.7 x103/mcL -- Normal range between ( 1.3 and 2.9 ) Cherry Abs#: 0.7 x103/mcL -- Normal range between ( 0.0 and 0.8 ) Auto Baso %: 0.5 % -- Normal range between ( 0.2 and 2.0 ) Auto Cherry %: 8 % -- Normal range between ( 1 and 12 ) Baso Abs#: 0.0 x103/mcL -- Normal range between ( 0.0 and 0.2 ) Neut Abs#: 3.6 x103/mcL -- Normal range between ( 1.5 and 9.2 ) Urinalysis 07/18/2024 10:20 PM UA Bacteria: Trace UA Blood: TRACE UA Color: Yellow UA Glucose: 100 mg/dL UA Hyal Cast: 0-5 UA Ketones: NEGATIVE UA Leuk Est: NEGATIVE UA Mucous: Trace UA Nitrite: NEGATIVE UA Protein: NEGATIVE UA RBC: 0-2 UA Squam Epi: Moderate UA Urobilinogen: 0.2 mg/dL -- Normal range between ( 0.2 and 1.0 ) UA WBC: 3-5 UA pH: 6.0 -- Normal range between ( 5 and 8 ) UA Spec Grav: 1.020 -- Normal range between ( 1. (more content not included)... [facility] 07-23-2024 Miscellaneous Notes Patient called to notify us that [facility]. [facility] documented in this encounter [facility] 07-23-2024 Telephone encounter Note Patient called to notify us that she is going to [facility]. [facility] 07-23-2024 Telephone encounter Note What is TB? [facility] 07-23-2024 Telephone encounter Note [facility] 07-17-2024 History of Present illness Narrative The OARRS/MAPPS database was reviewed today and found to be appropriate. No indication of medication diversion, or non compliance. SANIYA Menjivar 07/17/24 1345 documented in this encounter [facility] 07-10-2024 History of Present illness Narrative Requested staff faxed stereotactic biopsy for breast to [place] as well [facility] patient is too large for the chair that they use during the procedure. SANIYA Menjivar 07/10/24 1350 documented in this encounter [facility] 07-10-2024 History of Present illness Narrative Staff asked to fax her MRI order to [place], [place] for open MRI as [place] no longer provides this service. 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 SANIYA Menjivar 07/10/24 1236 documented in this encounter [facility] 07-09-2024 History of Present illness Narrative Images from the original note were not included. [address] [place] [id number] Patient: Joycelyn Hamm Date of : 1940 Encounter Date: 07/09/2024 History of Present Illness: The patient is a 83 y.o. female, an established patient, and is here for Chief Complaint Patient presents with Establish Care . HPI Patient is here to establish care with me from Cari Carpio CNP who retired from this office. Patient is requesting a potty chair today because she has to walk on the other side of her building to go to the restroom and she has history of mixed incontinence and sometimes does not make it to the bathroom in time. She would like to set a commode up at her bedside or by her chair to make it easier for her. Patient is in the process of moving to [place] into a mobile home. Patient sees endocrinology in [place] for her type 2 diabetes and her last A1c in May was 7.5%. Abnormal mammogram was reviewed with patient today and patient understands she is unable to have a regular MRI at local hospitals due to her size, she needs open MRI so will order this today. Patient agrees to schedule this. She needs to complete the MRI of the breast 1st and then may have the biopsy per [facility] interventional radiology recommendations. Patient would like 30 day supplies of all of her medications from now on as [facility] pharmacy in [place] separates the medication into an organization kit that is easier for patient to adhere to her medication regimen. Patient would also like a handicap parking placard as she uses assistive devices including a walker and a cane and is unable to walk more than 200 ft without stopping due to her chronic back pain and neuropathy. Patient noticed a new wound to her left/mid abdomen a few days ago. She can not see this unless she leans over and moves her abdomen in her line of sight. She does not remember hitting the area on anything or sleeping on the area or having any pressure to the area. It does not hurt her. It has not been draining and she has not been covering it. Problem List Items Addressed This Visit Cardiovascular and Mediastinum PAF (paroxysmal atrial fibrillation) ([facility]) Pulmonary hypertension ([facility]) Digestive Morbid obesity ([facility]) Endocrine Hypothyroidism Relevant Orders TSH (Completed) T4, free (Completed) Type 2 diabetes mellitus with kidney complication, with long-term current use of insulin ([facility]) Relevant Orders Comprehensive metabolic panel (Completed) Nervous and Auditory Polyneuropathy Musculoskeletal and Integument Degeneration of lumbar intervertebral disc Other Visit Diagnoses Urge incontinence of urine - Primary Relevant Orders Commode, Chair Mobile w/ Fixed Arms Ulcer of abdomen wall, limited to breakdown of skin ([facility]) Relevant Orders Ambulatory referral to Wound Care (Non[facility]) Abnormality of right breast on screening mammogram Relevant Orders MR bilateral breast with and without contrast with CAD Past Medical, Family, and Social History Update: The following portions of the patient's history were reviewed and updated as appropriate: allergies, current medications, past family history, past medical history, past social history, past surgical history and problem list. Past Medical History: Diagnosis Date Acute kidney failure (CMS-HCC) 09/17/2019 Acute postoperative respiratory insufficiency 01/28/2023 Asthma Cataract Gout History of loop recorder Hyperlipidemia Hypothyroidism Leukocytosis 09/17/2019 Past Surgical History: Procedure Laterality Date CARDIOVERSION EXTRACTION CATARACT INTRAOCULAR LENS Left 12/06/2020 Performed by Ansley Sanders MD at [facility] EYE SURGERY HERNIA REPAIR INSERTION LOOP RECORDER Current Outpatient Medications Medication Sig Dispense Refill albuterol (PROVENTIL HFA;VENTOLIN HFA) 90 mcg/actuation inhaler INHALE 2 PUFFS 4 TIMES A DAY NEEDED allopurinoL (ZYLOPRIM) 300 mg tablet Take 1 tablet (300 mg total) by mouth in the morning. 30 tablet 5 ammonium lactate (LAC-HYDRIN FIVE) 5 % lotion Apply 1 application. topically daily. 226 g 1 apixaban (ELIQUIS) 5 mg tablet Take 1 tablet (5 mg total) by mouth in the morning and 1 tablet (5 mg total) before bedtime. 180 tablet 3 atorvastatin (LIPITOR) 40 mg tablet Take 1 tablet (40 mg total) by mouth in the morning. 30 tablet 5 BD ULTRA-FINE MINI PEN NEEDLE 31 gauge x 3/16 needle USE FOUR TIMES A DAY. ICD 10 E11.65 bumetanide (BUMEX) 2 mg tablet Take 1 tablet (2 mg total) by mouth daily. 90 tablet 1 calcium carbonate-vitamin D3 (OSCAL 500 + D) 500 mg(1,250mg) -200 units per tablet Take 1 tablet by mouth in the morning and 1 tablet in the evening. Take with meals. cetirizine (ZyrTEC) 10 mg tablet Take 1 tablet (10 mg total) by mouth in the morning. 30 tablet 5 dilTIAZem (TIAZAC) 120 MG 24 hr capsule Take 1 capsule (120 mg total) by mouth in the morning. 180 capsule 1 flash glucose scanning reader (FREESTYLE WILLIAM 14 DAY READER) [facility] FreeStyle William 14 Day [place] flash glucose sensor (FREESTYLE WILLIAM 14 DAY SENSOR) kit FreeStyle William 14 Day Sensor kit gabapentin (NEURONTIN) 100 mg capsule Take 1 capsule (100 mg total) by mouth nightly. Not due for refill until 05/17/24 30 capsule 0 gabapentin (NEURONTIN) 300 mg capsule TAKE 2 CAPSULES BY MOUTH EVERY MORNING, TAKE 1 CAPSULE BY MOUTH AT LUNCH, TAKE 1 CAPSULE BY MOUTH EVERY AFTERNOON, AND TAKE 2 CAPSULES BY MOUTH EVERY NIGHT AT BEDTIME 180 capsule 2 insulin aspart U-100 (NovoLOG) 100 unit/mL injection Inject 0.4 mL (40 Units total) under the skin in the morning and 0.4 mL (40 Units total) at noon and 0.4 mL (40 Units total) in the evening. Inject before meals. Takes 20 units am, 30 units lunch and 30 unit supper.. insulin detemir U-100 (LEVEMIR) 100 unit/mL injection Inject 0.2 mL (20 Units total) under the skin in the morning and 0.2 mL (20 Units total) before bedtime. 80 units at night. insulin lispro (HumaLOG KwikPen Insulin) 100 unit/mL insulin pen INJECT 20 UNITS UNDER THE SKIN AT BREAKFAST, 30 UNITS AT LUNCH AND DINNER levothyroxine (SYNTHROID, LEVOTHROID) 137 MCG tablet Take 1 tablet (137 mcg total) by mouth in the morning. 90 tablet 3 lidocaine (LIDODERM) 5 % lidocaine 5 % topical patch mirabegron (MYRBETRIQ) 25 mg tablet extended release 24 hr Take 2 tablets (50 mg total) by mouth in the morning. 60 tablet 5 rOPINIRole (REQUIP) 0.5 mg tablet Take 1 tablet (0.5 mg total) by mouth 3 (three) times a day. 90 tablet 5 spironolactone (ALDACTONE) 25 mg tablet Take 1 tablet (25 mg total) by mouth in the morning. 90 tablet 3 TRADJENTA 5 mg tablet Take 1 tablet (5 mg total) by mouth in the morning. TRUE METRIX GLUCOSE METER [facility] TO TEST BLOOD SUGAR THREE TIMES DAILY TRUE METRIX GLUCOSE TEST STRIP strip USE DIRECTED 3 TIMES A DAY No current facility-administered medications for this visit. (All medications reviewed and updated by provider since last office visit or hospitalization) Allergies: Patient has no known allergies. Tobacco History: Social History Tobacco Use Smoking Status Never Passive exposure: Current Smokeless Tobacco Never (If patient a smoker, smoking cessation counseling offered) Social History: Social History Substance and Sexual Activity Alcohol Use Not Currently Review of Systems: Review of Systems Constitutional: Positive for unexpected weight change (4 lb weight gain). HENT: Negative. Eyes: Negative. Cardiovascular: Positive for leg swelling. Negative for chest pain and palpitations. Gastrointestinal: Negative. Endocrine: Negative. Genitourinary: Negative. Allergic/Immunologic: Negative. Neurological: Negative. Hematological: Negative. Psychiatric/Behavioral: Negative. Physical Exam: BP 120/77 (BP Site: Left Arm, BP Postition: Sitting) Pulse 77 Temp 36.2 C (97.2 F) (Oral) Ht 172.7 cm (5' 7.99 ) Wt (!) 147.4 kg (325 lb) LMP (LMP Unknown) SpO2 95% BMI 49.43 kg/m Physical Exam Vitals reviewed. Constitutional: Appearance: She is obese. HENT: Head: Normocephalic. Eyes: Conjunctiva/sclera: Conjunctivae normal. Neck: Vascular: No carotid bruit. Cardiovascular: Rate and Rhythm: Normal rate and regular rhythm. Heart sounds: Normal heart sounds. No murmur heard. Pulmonary: Effort: Pulmonary effort is normal. Breath sounds: Normal breath sounds. Abdominal: General: Bowel sounds are normal. Palpations: Abdomen is soft. Tenderness: There is no abdominal tenderness. Comments: Obese Musculoskeletal: Right lower leg: Edema (+3 edema knee to ankle with tight knee high socks that are coming down) present. Left lower leg: Edema (+2 pitting edema knee to ankle) present. Comments: Has bilateral support stockings in place, no edema identified today Lymphadenopathy: Cervical: No cervical adenopathy. Skin: General: Skin is warm and dry. Capillary Refill: Capillary refill takes less than 2 seconds. Comments: 1.5X1.5 cm round scabbed over/closed ulceration to left pannus as shown above. Brown/severino scab over center of ulcer with minimal erythema surrounding area, no significant induration or pain when palpated, no open area/drainage. Neurological: Mental Status: She is alert and oriented to person, place, and time. Gait: Gait abnormal (ambulating wih wheeled walker). Psychiatric: Mood and Affect: Mood normal. Behavior: Behavior normal. Assessment and Plan: Joycelyn was seen today for establish care. Diagnoses and all orders for this visit: Urge incontinence of urine - Commode, Chair Mobile w/ Fixed Arms Degeneration of lumbar intervertebral disc Polyneuropathy PAF (paroxysmal atrial fibrillation) ([facility]) Type 2 diabetes mellitus with stage 3a chronic kidney disease, with long-term current use of insulin ([facility]) - Comprehensive metabolic panel; Future Acquired hypothyroidism - TSH; Future - T4, free; Future Pulmonary hypertension ([facility]) Morbid obesity ([facility]) Ulcer of abdomen wall, limited to breakdown of skin ([facility]) - Ambulatory referral to Wound Care (Non[facility]); Future Abnormality of right breast on screening mammogram - MR bilateral breast with and without contrast with CAD; Future Follow-up: Commode with fixed arms per patient request was ordered to [facility] due to patient's history of mixed incontinence and mobility issues. Parking placard was ordered for patient to take to the [facility] for the next 5 years so she may use while she is riding in a vehicle. She understands she needs to be present in vehicle and other may not use this without her. Patient is a high fall risk and on anticoagulation to reduce the risk of stroke with AFib. Patient understands her risk of bleeding on the anticoagulant. Patient was offered physical therapy for lower extremity strengthening to help prevent falls but she declined today. Patient uses supplemental oxygen at night with her CPAP for history of pulmonary hypertension. Patient has new wound/ulcer to abdominal wall and she is willing to see her current clinical lab specialist in [place] for consultation on this. Patient was advised to keep the area clean and dry using mild soap and water but she does not have to cover unless it becomes open. Patient agrees to set up open MRI for breast and she will get a delivery motorcycle driver to take her to this appointment. She understands she needs to set up a breast biopsy with [facility] after the MRI is complete. Patient should follow-up in 3 months to discuss the rest of her medical issues as it could not be covered in 1 appointment. SANIYA MENJIVAR APRN-CNP 07/10/24 1233 documented in this encounter [facility] 07-08-2024 Miscellaneous Notes [facility] and the [facility] can not due the MRI nor the Steriotatic either due to her weight she is too large for the chair and the MRI she would have to fit in the tube on her belly for 1 hr. She said the patient couldn't even get on table. Open MRI ordered at [place] - then she will need Bx at [facility] [place] does not have open MRI and what is the other test that needs done at [facility]?She also called today stating she is only on lantus and humalog not levimir and She would like a inhaler for rescue when SOB and for her bedside commode it needs sent to [facility]. documented in this encounter [facility] 07-08-2024 Telephone encounter Note [facility] and the facility can not due the MRI nor the Steriotatic either due to her weight she is too large for the chair and the MRI she would have to fit in the tube on her belly for 1 hr. She said the patient couldn't even get on table. [facility] 07-08-2024 Telephone encounter Note Open MRI ordered at [place] - then she will need Bx at [facility] 07-08-2024 Telephone encounter Note [place] does not have open MRI and what is the other test that needs done at [facility]?She also called today stating she is only on lantus and humalog not levimir and She would like a inhaler for rescue when SOB and for her bedside commode it needs sent to [facility]. [facility] 06-24-2024 Miscellaneous Notes Stephany called from [facility] mammography about this pt needing a stereotatic Breast Biopsy ordered. Looks like she has a MRI ordered of the Breast. Could you ordered it. I called pt and she would like it done at [facility]. Ok, I sent breast Bx to [facility] - I believe IR can do this but please call over to radiology to make sure I put order in correctly. Also yes the MRI of the breast should be done- they will likely want this done first - does she have this set up? No answer No voice mail Notified patient documented in this encounter [facility] 06-24-2024 Telephone encounter Note Stephany called from [facility] mammography about this pt needing a stereotatic Breast Biopsy ordered. Looks like she has a MRI ordered of the Breast. Could you ordered it. I called pt and she would like it done at [facility]. [facility] 06-24-2024 Telephone encounter Note Ok, I sent breast Bx to [facility] - I believe IR can do this but please call over to radiology to make sure I put order in correctly. Also yes the MRI of the breast should be done- they will likely want this done first - does she have this set up? [facility] 06-24-2024 Telephone encounter Note No answer No voice mail [facility] 06-24-2024 Telephone encounter Note Notified patient [facility] 06-17-2024 History of Present illness Narrative The OARRS/MAPPS database was reviewed today and found to be appropriate. No indication of medication diversion, or non compliance. SANIYA Menjivar 06/17/24 0948 documented in this encounter [facility] 06-16-2024 Miscellaneous Notes Patient was wondering why she did not get her gabapentin or diltiazem I sent her gabapentin in 05/17 and she filled it 05/18 and refilled 06/16 according to OARRS and her diltiazem 04/30 for 90 days with refill. I have not received further requests from her pharmacy. I sent new Rx to her pharmacy today. She may request auto refills at her pharmacy as well. Notified documented in this encounter [facility] 06-16-2024 Telephone encounter Note Patient was wondering why she did not get her gabapentin or diltiazem [facility] 06-16-2024 Telephone encounter Note I sent her gabapentin in 05/17 and she filled it 05/18 and refilled 06/16 according to OARRS and her diltiazem 04/30 for 90 days with refill. I have not received further requests from her pharmacy. I sent new Rx to her pharmacy today. She may request auto refills at her pharmacy as well. [facility] 06-16-2024 Telephone encounter Note Notified [facility] 06-15-2024 Miscellaneous Notes Needs her pacemaker released she is seeing a different jive developer to have a mri done the fax number is [phone]. Reprints and MRI worksheet prepared for Dr Taveras to fax - Medtronic loop recorder implanted 2017 - Battery has been Depleted, device was not explanted MRI clearance and last OV letter faxed to # given documented in this encounter [facility] 06-15-2024 Telephone encounter Note Needs her pacemaker released she is seeing a different jive developer to have a mri done the fax number is [phone]. [facility] 06-15-2024 Telephone encounter Note Reprints and MRI worksheet prepared for Dr Taveras to fax - Medtronic loop recorder implanted 2017 - Battery has been Depleted, device was not explanted [facility] 06-15-2024 Telephone encounter Note MRI clearance and last OV letter faxed to # given [facility] 06-12-2024 History of Present illness Narrative Written atorvastatin prescription filled out and placed in outgoing fax SANIYA Menjivar 06/12/24 1404 documented in this encounter [facility] 06-11-2024 Miscellaneous Notes NEEDS HER PACEMAKER FOR MRI FAX # [phone] Patient is following with another jive developer now due to insurance documented in this encounter [facility] 06-11-2024 Telephone encounter Note NEEDS HER PACEMAKER FOR MRI FAX # [phone] [facility] 06-11-2024 Telephone encounter Note Patient is following with another jive developer now due to insurance [facility] 05-25-2024 History of Present illness Narrative The OARRS/MAPPS database was reviewed today and found to be appropriate. No indication of medication diversion, or non compliance. Not due for refill of gabapentin - had one 05/18/24 SANIYA Menjivar 05/25/24 1406 documented in this encounter [facility] 05-22-2024 Miscellaneous Notes Please set her up appt to see me for chronic problems - can be after her MRI and breast Bx Also she is not due for refill of this - she just filled 1 week ago and I gave her 30 days. Patient scheduled in office 07/09/24. Plans to complete biopsy in June. She is not out of her gabapentin. documented in this encounter [facility] 05-22-2024 Telephone encounter Note Please set her up appt to see me for chronic problems - can be after her MRI and breast Bx [facility] 05-22-2024 Telephone encounter Note Also she is not due for refill of this - she just filled 1 week ago and I gave her 30 days. [facility] 05-22-2024 Telephone encounter Note Patient scheduled in office 07/09/24. Plans to complete biopsy in June. She is not out of her gabapentin. [facility] 05-20-2024 Miscellaneous Notes ----- Message from SANIYA Villegas sent at 05/20/2024 9:59 AM EDT ----- Pt needs a biopsy of right breast after she has her MRI. Who would she like me to refer her to for this? Patient would like to go to [facility] where she will be completing her MRI. Please fax referral for IR to [facility] - I do not have my fax list for outside facilities at home Faxed this over to [facility] documented in this encounter [facility] 05-20-2024 Telephone encounter Note ----- Message from SANIYA Villegas sent at 05/20/2024 9:59 AM EDT ----- Pt needs a biopsy of right breast after she has her MRI. Who would she like me to refer her to for this? [facility] 05-20-2024 Telephone encounter Note Patient would like to go to [facility] where she will be completing her MRI. [facility] 05-20-2024 Telephone encounter Note Please fax referral for IR to [facility] - I do not have my fax list for outside facilities at home [facility] 05-20-2024 Telephone encounter Note Faxed this over to [facility] 04-30-2024 History of Present illness Narrative The OARRS/MAPPS database was reviewed today and found to be appropriate. No indication of medication diversion, or non compliance. She is not due for refill for gabapentin until 05/17/24 SANIYA Menjivar 04/30/24 1010 documented [facility] History of Present illness Narrative Subjective Patient ID: Joycelyn Hamm is a 83 y.o. female. Has a dull aching sensation in her left upper arm that is constant but worsens when she pushes up on it for the past two weeks She denies any numbness or tingling She denies any injury She has been doing some housework and may have overdone it The following portions of the patient's history were reviewed and updated as appropriate: allergies, current medications, past family history, past medical history, past social history, past surgical history, problem list, and medication reconciliation was completed including current medication and post discharge medication. Review of Systems Constitutional: Positive for activity change. Respiratory: Negative. Cardiovascular: Negative. Gastrointestinal: Negative. Endocrine: Negative. Genitourinary: Negative. Musculoskeletal: Positive for arthralgias and myalgias. Neurological: Negative for numbness. Hematological: Negative. Psychiatric/Behavioral: Negative. Objective Physical Exam Vitals and nursing note reviewed. HENT: Head: Normocephalic. Eyes: Pupils: Pupils are equal, round, and reactive to light. Neck: Vascular: No carotid bruit. Cardiovascular: Rate and Rhythm: Normal rate and regular rhythm. Pulses: Normal pulses. Heart sounds: Normal heart sounds. No murmur heard. Pulmonary: Effort: Pulmonary effort is normal. Breath sounds: Normal breath sounds. Musculoskeletal: General: Tenderness present. Left shoulder: Tenderness, bony tenderness and crepitus present. No swelling or effusion. Decreased range of motion. Cervical back: Normal range of motion. Comments: She has pain at about mid adduction of the right extremity, she starts having pain at about 120 degrees elevation, and has pain at about 80 degrees of abduction of the left upper extremity Her AC joint and surrounding tissue is tender to touch and is tender in the upper arm to the level of just the elbow The pain does not extend to the level of elbow There is no pain or redness or swelling Lymphadenopathy: Cervical: No cervical adenopathy. Skin: General: Skin is warm and dry. Capillary Refill: Capillary refill takes less than 2 seconds. Neurological: Mental Status: She is oriented to person, place, and time. Psychiatric: Thought Content: Thought content normal. Judgment: Judgment normal. Assessment/Plan Joycelyn was seen today for arm pain. Diagnoses and all orders for this visit: Tendonitis of shoulder, left - predniSONE (DELTASONE) 10 mg tablet; Take 1 tablet (10 mg total) by mouth in the morning for 7 days. Encounter for screening mammogram for malignant neoplasm of breast - Mammography screening bilateral with CAD; Future Her last A1c which Dr Hebert just complete was 7.1 She should be a able to tolerate a low dose of prednisone; Cautioned her about rise in blood sugar Stay away from any nsaids, use ice twice - three times daily and exercises given for twice daily She is due for her mammogram next month and this is ordered ALEXANDER Perry 03/17/24 1723 documented in this encounter [facility] 03-16-2024 Miscellaneous Notes refill documented in this encounter [facility] 03-16-2024 Telephone encounter Note refill [facility] 02-19-2024 History of Present illness Narrative The OARRS/MAPPS database was reviewed today and found to be appropriate. No indication of medication diversion, or non compliance. SANIYA Menjivar 02/19/24 1014 documented in this encounter [facility] 02-14-2024 History of Present illness Narrative Looks like she's not for refill of gabapentin until 02/27/24 according to OARRs. Will delay prescribe for this time. And send in her other requests. The OARRS/MAPPS database was reviewed today and found to be appropriate. No indication of medication diversion, or non compliance. SANIYA Menjivar 02/14/24 1332 documented in this encounter [facility] 01-23-2024 History of Present illness Narrative Subjective Patient ID: Joycelyn Hamm is a 83 y.o. female. Here for [...] disease, with long-term current use of insulin ([facility]) Stasis dermatitis of lower extremity due to chronic peripheral vascular hypertension Mixed hyperlipidemia - Comprehensive metabolic panel; Future - Lipid panel; Future Pulmonary hypertension ([facility]) PAF (paroxysmal atrial fibrillation) ([facility]) Fibrosis of lung ([facility] Morbid obesity ([facility]) Her blood sugars sound good, keep apt [...] Perry 01/23/24 1008 documented in this encounter [facility] 01-09-2024 History of Present illness Narrative Subjective Patient ID: Joycelyn Hamm is a 83 y.o. female. She has [...] Viral URI with cough Other orders - xaduxjzxiccwwkc-hdtwvjtrf-JL 2-30-10 mg/5 mL syrup; Take 5 mL by mouth 4 (four) times a day as needed for allergies. Negative for influenza and covid Afebrile and lungs clear, will treat symptomatically and keep hydrated, rest She is to return for her DM apt on 01/19 ALEXANDER Perry 01/09/24 1214 documented in this encounter [facility] 12-18-2023 History of Present illness Narrative HPI: Patient presents in office today for [...] reading, if diabetic: 115 PCP: Dr Rachel Blunt, Dr. Brown. Date of Last visit: 07/22/2023 [...] discolored, crumbly, dystrophic and with subungal debris, incurvated to the medial and lateral border. 2elongated, thick, discolored, crumbly, dystrophic and with subungal debris. 3elongated, thick, discolored, crumbly, dystrophic and with subungal debris. 4elongated, thick, discolored, crumbly, dystrophic and with subungal debris. 5elongated, thick, discolored, crumbly, dystrophic and with subungal debris. Nail Pathology: Right Foot: 1 (great toe)elongated, thick, discolored, crumbly, dystrophic and with subungal debris, incurvated to the medial and lateral border. 2elongated, thick, [...] needed if problems arise. documented in this encounter [facility] 11-01-2023 History of Present illness Narrative Images from the original note were not included. Jered Celestin MD, FACC Chaz Francis, PAO Mendoza, PAO [address] [place] [address] Name: Joycelyn Hamm : 1940 Gender: female PCP: ALEXANDER HOOPER Age: 82 y.o. PCP Visit Date: 10/30/23 CHIEF COMPLAINT: Joycelyn Hamm is an 82 y.o. female Here for follow up visit. Moving to [facility]. Doing well. No chest pain. Stable dyspnea. Props up in bed and using 2L O2 with CPAP. No PND. No LH, falls or syncope. Using walker. No palpitations. No bleeding or TIAs. No edema. Weight stable. PAST MED/SURG HISTORY: Past Medical History: Diagnosis Date Acute kidney failure ([facility]) 09/17/2019 Acute postoperative respiratory insufficiency 01/28/2023 Asthma Cataract Diabetes mellitus type 2, controlled ([facility]) Gout History of loop recorder Hyperlipidemia Hypothyroidism Leukocytosis 09/17/2019 Past Surgical History: Procedure Laterality Date CARDIOVERSION EXTRACTION CATARACT INTRAOCULAR LENS Left 12/06/2020 Performed by Ansley Sanders MD at [facility] EYE SURGERY HERNIA REPAIR INSERTION LOOP [...] min Stress: No Stress Concern Present (10/01/2023) [employer] - Occupational Stress Questionnaire Feeling of Stress : Not at all Social Connections: Socially Isolated (10/01/2023) Social Connection and Isolation Panel [NHANES] Frequency of Communication with Friends and Family: Once a week Frequency of Social Gatherings with Friends and Family: Never Attends Taoism Services: Never Active Member of Clubs or [...] the morning., Disp: 90 tablet, Rfl: 1 BD ULTRA-FINE MINI PEN NEEDLE 31 gauge x 3/16 needle, USE FOUR TIMES A DAY. ICD 10 E11.65, Disp: , Rfl: benzonatate (TESSALON PERLES) 200 mg capsule, TAKE [...] , Rfl: flash glucose scanning reader (FREESTYLE WILLIAM 14 DAY READER) misc, FreeStyle William 14 Day [place] Heart, Disp: , Rfl: flash glucose sensor (FREESTYLE WILLIAM 14 DAY SENSOR) kit, FreeStyle William 14 Day Sensor kit, Disp: , Rfl: gabapentin (NEURONTIN) 100 mg capsule, Take 1 capsule (100 mg total) by mouth See Admin Instructions. Take an additional 100mg with the 2 300 mg capsules at bedtime, Disp: 90 capsule, Rfl: 0 gabapentin (NEURONTIN) 300 mg capsule, Take 2 capsules in the am, one capsule at lunch, one capsule in the afternoon and two capsules at bedtime [...] pen, INJECT 20 UNITS UNDER THE SKIN AT BREAKFAST, 30 UNITS AT LUNCH AND DINNER, Disp: , Rfl: levothyroxine (SYNTHROID, LEVOTHROID) 137 MCG tablet, Take 1 tablet (137 mcg total) by mouth in the morning., Disp: 90 tablet, Rfl: 3 lidocaine (LIDODERM) [...] mg total) by mouth nightly., Disp: 90 tablet, Rfl: 3 spironolactone (ALDACTONE) 25 mg tablet, Take 1 tablet (25 mg total) by mouth in the morning., Disp: 90 tablet, Rfl: 3 TRADJENTA 5 mg tablet, Take 1 tablet (5 mg total) by mouth in the morning., Disp: , Rfl: TRUE METRIX GLUCOSE METER [facility], TO TEST BLOOD SUGAR THREE TIMES DAILY, [...] moderate increased wall thickness/hypertrophy. Systolic function is normal with an ejection fraction of 65-70%. Mitral Valve: [...] leave in Testing and records reviewed in [facility] Everywhere and other outside facilities, and are documented under CV database and testing. The note was completed using EMR. Every effort was made to ensure accuracy; however, inadvertent computerized middle school tutor errors may be present. Jered Celestin MD documented in this encounter [facility] 10-09-2023 Evaluation note Encounter Date Diagnosis Assessment Notes Oct, Bronchitis (ICD-10 - J40) Drink [...] however she feels she needs the steroids. [employer] Other 11-28-2023 History of Present illness Narrative* Cari Coboscristino, CHIEF SCIENTIST-PNEUMATIC TUBE OPERATOR - 10/01/2023 10:30 AM EST Subjective SUBJECTIVE: Patient ID: Joycelyn Hamm is a 83 y.o. female who presents for a Medicare Annual Wellness exam. HPI The following portions of the patient's history were reviewed and updated as appropriate: allergies, current medications, past family history, past medical history, past social history, past surgicalhistory and problem list. AWV FLOWSHEET : Lifestyle Assessment Do you smoke or use smokeless tobacco?: No If you smoke or use smokeless tobacco, are you ready to quit?: NA Are you exposed to secondhand smoke?: (!) Yes On average, how many drinks of alcohol do you consume in a week?: None Do you exercise for 30 or more minutes on average at least 3 days a week?: Sometimes Do you have any tooth, denture, or oral problems?: No Do you snore or has anyone told you that you snore?: (!) Yes Do you try to eat a balanced diet?: Yes Do you experience leakage of urine, also known as urinary incontinence?: Never Do you have difficulty performing any of these activities? (check all that apply): (!) Getting out of a chair Do you have difficulty performing any of these activities? (check all that apply): None Fall Risk Fall Risk Assessment Completed?: Yes Have you fallen in the past year?: No Are you worried about falling?: (!) Yes Do you feel unsteady when standing or walking?: (!) Yes Risk Stratification: Moderate Risk Depression Screening Little interest or pleasure in doing things: Not at all Feeling down, depressed, or hopeless: Not at all Trouble falling or staying asleep, or sleeping too much: Not at all Feeling tired or having little energy: Not at all Poor appetite or overeating: Not at all Feeling bad about yourself - or that you are a failure or have let yourself or your family down: Not at all Trouble concentrating on things, such as reading the newspaper or watching television: Not at all Moving or speaking so slowly that other people could have noticed. Or the opposite - being so fidgety or restless that you have been moving around a lot more than usual: Not at all Thoughts that you would be better off , or of hurting yourself in some way: Not at all PEG Scale Safety Assessment Do you have throw rugs on the floor?: No Do you feel safe at your home?: Yes Do you feel unsteady when walking?: (!) Yes Are you having difficulty with driving?: N/A Do you have trouble seeing?: No What assistive device do you use? (check all that apply): (!) Walker, Wheelchair Hearing Assessment Do you strain or struggle to hear/understand conversations?: No Do you have trouble hearing the television or radio when others do not?: No Does your family ever voice concerns about your hearing?: No Do you wear hearing aid/s?: No Personal Health During the past 4 weeks, how would you rate your overall health?: Very Good Do you understand how to take all of your medications?: Yes How confident are you that you can control and manage most of your health problems?: Very confident In the past 12 months, how many times have you been hospitalized?: None End of Life Planning Do you have a living will?: Yes Do you have a durable power of trade mark attorney?: Yes Cognitive Screening Do you have trouble remembering or recalling facts or events?: No Do family members or caregivers report that you have difficulty remembering things?: No Clock Drawing Test: Not Assessed 6CIT was 4 REVIEW OF SYSTEMS: Review of Systems Objective PHYSICAL EXAMINATION: There were no vitals filed for this visit. Physical Exam Assessment/Plan ASSESSMENT/PLAN Joycelyn was seen today for medicare annual wellness. Diagnoses and all orders for this visit: Medicare annual wellness visit, subsequent Return in about 1 year (around 10/01/2024). 1. Medicare annual wellness visit, subsequent Her dementia screning shows low risk Her depression screening is low risk She is planning to schedule her mammogram after April 11 of this year when it is due She is a high fall risk but does always use her walker She does keep regular apts for her diabetes with ALEXANDER Hooper 03/17/24 1740 documented in this encounter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) [employer] Other 03-31-2022 Evaluation note* Encounter Date Diagnosis Assessment Notes Treatment Notes Treatment Clinical Notes Jan, 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) Jan, 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) [employer] Other 03-02-2022 Evaluation note* Encounter Date Diagnosis Assessment Notes Treatment Notes Treatment Clinical Notes Jan, Pulmonary fibrosis (ICD-10 - J84.10) Jan, 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 Medical History Cryptogenic organizing pneumonia Hospitalization History [facility] 09/05 021 [employer] Other Evaluation note* Diagnosis Onychomycosis- Primary Dermatophytosis of nail 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 (CMS/HCC) Pain in both feet Healed foot ulcer documented in this encounter [facility] HealthcareEvaluation noteNo assessment information availableFirMercy Health [facility] Work Phone: Evaluation note* Diagnosis DESTINY (obstructive sleep apnea)- Primary Obstructive sleep apnea (adult) (pediatric) Hypoxia Hypoxemia Hypersomnia Hypersomnia, unspecified RLS (restless legs syndrome) Restless legs syndrome (RLS) PLMD (periodic limb movement disorder) Periodic limb movement disorder Morbid obesity ([facility]/HCC) Morbid obesity Atrial fibrillation, unspecified type ([facility]) documented in this encounter [facility] HealthcareEvaluation note* Diagnosis Onychomycosis- Primary Dermatophytosis of nail 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 ([facility]/HCC) Pain in both feet Healed foot ulcer documented in this encounter [facility] HealthcareEvaluation note* Diagnosis Type 2 diabetes mellitus with hyperglycemia, with long-term current use of insulin ([facility])- Primary Insulin long-term use ([facility]) Encounter for long-term (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 insulin Primary hypertension ([facility]) Unspecified essential hypertension Encounter for dietary consultation Hyperlipemia, mixed ([facility]) Mixed hyperlipidemia Stage 3b chronic kidney disease (HCC) ([facility]) Class 3 severe obesity due to excess calories with serious comorbidity and body mass index (BMI) of 45.0 to 49.9 in adult ([facility]) documented in this encounter [facility] HealthcareEvaluation note* Diagnosis Onychomycosis- Primary Dermatophytosis of nail 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 ([facility]) Healed foot ulcer documented in this encounter [facility] HealthcareEvaluation note* Diagnosis Medicare annual wellness visit, subsequent- Primary Diabetic peripheral neuropathy ([facility]) Type II or unspecified type diabetes mellitus with neurological manifestations, not stated as uncontrolled Disorder of nervous system due to type 2 diabetes mellitus ([facility]/HCC) DESTINY (obstructive sleep apnea) Obstructive sleep apnea (adult) (pediatric) PLMD (periodic limb movement disorder) Periodic limb movement disorder Polyneuropathy Unspecified hereditary and idiopathic peripheral neuropathy Restless legs Restless legs syndrome (RLS) Essential hypertension ([facility]/HCC) Unspecified essential hypertension Venous insufficiency Unspecified venous (peripheral) insufficiency Atrial enlargement, bilateral Benign hypertensive heart disease without congestive heart failure (CMS/HCC) Benign hypertensive heart disease without heart failure Bradycardia Other specified cardiac dysrhythmias LVH (left ventricular hypertrophy) Cardiomegaly Nonrheumatic mitral valve regurgitation PAF (paroxysmal atrial fibrillation) ([facility]/HCC) Atrial fibrillation Pulmonary hypertension ([facility]/HCC) Other chronic pulmonary heart diseases Paroxysmal atrial fibrillation ([facility]/HCC) Atrial fibrillation Pain in both feet Bilateral leg edema Edema Degeneration of intervertebral disc of lumbar region with discogenic back pain Primary osteoarthritis of both knees Lymphedema of lower extremity Acquired hypothyroidism ([facility]/HCC) Unspecified hypothyroidism Morbid obesity ([facility]/HCC) Morbid obesity Stage 3 chronic kidney disease due to type 2 diabetes mellitus ([facility]) ([facility]) Vitamin D deficiency Pure hypercholesterolemia ([facility]/HCC) Pure hypercholesterolemia Mild depression ([facility]) Depressive disorder, not elsewhere classified documented in this encounter [facility] HealthcareEvaluation note* Diagnosis DESTINY (obstructive sleep apnea)- Primary Obstructive sleep apnea (adult) (pediatric) RLS (restless legs syndrome) Restless legs syndrome (RLS) Morbid obesity ([facility]/HCC) Morbid obesity Hypersomnia Hypersomnia, unspecified documented in this encounter [facility] HealthcareEvaluation note* Diagnosis PAF (paroxysmal atrial fibrillation) ([facility]-HCC)- Primary Atrial fibrillation Abnormal echocardiogram Nonspecific (abnormal) findings on radiological and other examination of other intrathoracic organs Essential hypertension Unspecified essential hypertension Nonrheumatic mitral valve regurgitation LVH (left ventricular hypertrophy) Cardiomegaly Pulmonary hypertension ([facility]-HCC) Other chronic pulmonary heart diseases S/P ablation of atrial fibrillation Other postprocedural status Healthcare maintenance Atrial enlargement, bilateral DESTINY (obstructive sleep apnea) Obstructive sleep apnea (adult) (pediatric) Bilateral leg edema Edema Hyperlipidemia, unspecified hyperlipidemia type Current use of equipment operator intermodal yard anticoagulation Abnormal ECG Nonspecific abnormal electrocardiogram (ECG) (EKG) History of radiofrequency ablation (RFA) for complex left atrial arrhythmia USP (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 anticoagulants Long-term (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 anticoagulants [facility] Diagnosis Mixed hyperlipidemia documented in this encounter [facility] SystemEvaluation note* Diagnosis Polyneuropathy Unspecified hereditary and idiopathic peripheral neuropathy documented in this encounter [facility] SystemEvaluation note* Diagnosis Tendonitis of shoulder, left- Primary Encounter for screening mammogram for malignant neoplasm of breast documented in this encounter [facility] SystemEvaluation note* Diagnosis Medicare annual wellness visit, subsequent- Primary documented in this encounter [facility] SystemEvaluation note* Diagnosis Polyneuropathy Unspecified hereditary and idiopathic peripheral neuropathy documented in this encounter [facility] SystemEvaluation note* Diagnosis Mixed hyperlipidemia documented in this encounter [facility] SystemEvaluation note* Diagnosis Abnormality of right breast on screening mammogram- Primary documented in this encounter [facility] SystemEvaluation note* Diagnosis Abnormal mammogram of right breast- Primary documented in this encounter [facility] SystemEvaluation note* Diagnosis Polyneuropathy Unspecified hereditary and idiopathic peripheral neuropathy documented in this encounter [facility] SystemEvaluation note* Diagnosis Flu-like symptoms- Primary Viral URI with cough documented in this encounter [facility] SystemEvaluation note* Diagnosis Mass of right breast, unspecified quadrant- Primary documented in this encounter [facility] SystemEvaluation note* Diagnosis Gouty arthropathy Gouty arthropathy, unspecified documented in this encounter [facility] SystemEvaluation note* Diagnosis Type 2 diabetes mellitus with stage 3a chronic kidney disease, with long-term current use of insulin ([facility] [place] [facility])- Primary Stasis dermatitis of lower extremity due to chronic peripheral vascular hypertension Mixed hyperlipidemia Pulmonary hypertension ([facility] [facility]) Other chronic pulmonary heart diseases PAF (paroxysmal atrial fibrillation) ([facility] [place] [facility]) Atrial fibrillation Fibrosis of lung ([facility] [place] [facility]) Postinflammatory pulmonary fibrosis Morbid obesity ([facility]) Morbid obesity documented in this encounter [facility] SystemEvaluation note* Diagnosis Polyneuropathy Unspecified hereditary and idiopathic peripheral neuropathy documented in this encounter [facility] SystemEvaluation note* Diagnosis Gouty arthropathy Gouty arthropathy, unspecified Mixed hyperlipidemia documented in this encounter [facility] SystemEvaluation note* Diagnosis Polyneuropathy Unspecified hereditary and idiopathic peripheral neuropathy documented in this encounter [facility] SystemEvaluation note* Diagnosis Abnormality of right breast on screening mammogram- Primary documented in this encounter [facility] SystemEvaluation note* Diagnosis Polyneuropathy Unspecified hereditary and idiopathic peripheral neuropathy documented in this encounter [facility] SystemEvaluation note* Diagnosis Urge incontinence of urine- Primary Urge incontinence Degeneration of lumbar intervertebral disc Degeneration of lumbar or lumbosacral intervertebral disc Polyneuropathy Unspecified hereditary and idiopathic peripheral neuropathy PAF (paroxysmal atrial fibrillation) ([facility]) Atrial fibrillation Type 2 diabetes mellitus with stage 3a chronic kidney disease, with long-term current use of insulin ([facility]) Acquired hypothyroidism Unspecified hypothyroidism Pulmonary hypertension ([facility] [place] [facility]) Other chronic pulmonary heart diseases Morbid obesity ([facility]) Morbid obesity Ulcer of abdomen wall, limited to breakdown of skin ([facility] [facility]) Abnormality of right breast on screening mammogram documented in this encounter [facility] SystemEvaluation note* Diagnosis Gouty arthropathy Gouty arthropathy, unspecified Mixed hyperlipidemia documented in this encounter [facility] SystemEvaluation note* Diagnosis Abnormal mammogram Abnormal mammogram, unspecified Type 2 diabetes mellitus with hyperglycemia, with long-term current use of insulin ([facility]) documented in this encounter [facility] HealthcareEvaluation note* Diagnosis Type 2 diabetes mellitus with hyperglycemia, with long-term current use of insulin ([facility])- Primary Insulin long-term use ([facility]) Encounter for long-term (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 insulin Primary hypertension ([facility]) Unspecified essential hypertension Encounter for dietary consultation Hyperlipemia, mixed ([facility]) Mixed hyperlipidemia Stage 3b chronic kidney disease (HCC) ([facility]) Class 3 severe obesity due to excess calories with serious comorbidity and body mass index (BMI) of 45.0 to 49.9 in adult documented [facility] this encounter [facility] HospitalInstructionsNot on filedocumented in this encounterC[facility] SystemInstructionsNot on filedocumented in this encounterC[facility] SystemInstructionsNot on filedocumented in this encounterC[facility] SystemInstructions* Attachments The following attachments cannot be sent through Care Everywhere. * Rotator Cuff Tendinitis Strengthening Exercises (Bangladeshi) documented in this encounterProGrove Hill [facility] [employer] SystemInstructionsNot on file documented in this encounterProGrove Hill [facility] Hospital [employer] SystemInstructionsNot on file documented in this encounterProGrove Hill [facility] [employer] SystemInstructionsNot on file documented in this encounterProGrove Hill [facility] [employer] SystemInstructionsNot on file documented in this encounterProThe [facility] Hospital SystemInstructionsNot on file documented in this encounterProThe [facility] Hospital SystemInstructionsNot on file documented in this encounterProThe Jewish Hospital SystemInstructionsNot on file documented in this encounterProThe Jewish Hospital SystemInstructionsNot on file documented in this encounterProBarney Children'S Medical CenterInstructionsNot on file documented in this encounterProBarney Children'S Medical CenterInstructionsNot on file documented in this encounterProBarney Children'S Medical CenterInstructionsNot on file documented in this encounterMercy Health Urbana HospitalReason for referral (narrative)* Consultation (Routine) - Pending Review Specialty Diagnoses / Procedures Referred By Char smith Referred To Contact Diagnoses Mass of right breast, unspecified quadrant Nick Styles APRN-CNP [address] [place] [address] Referral ID Status Reason Start Date Expiration Date V isits Requested Visits Authorized [id number] Pending Review 05/20/2024 05/20/2025 1 1 [facility]bar [facility] Summary Purpose Family History Relationship Condition Age at Onset Recorded Date/T tde brother Heart disease Unknown Diabetes mellitus Unknown father Unknown mother Diabetes mellitus Unknown Unknown sister Diabetes mellitus Unknown Malignant neoplasm Unknown Advance Directives Advance Directive Response Recorded Date/ Time Advance Directives No May 04 12:45pm Advance Directive Response Recorded Date/ Time Advance Directives No June 23, 2024 4:20pm Chief Complaint and Reason for Visit Chief Complaint R92.8 Chief Complaint Admit Date r92.8 February 11, 2025 10: 29am Reason for Referral Specialty Diagnoses / Procedures Referred By Char smith Referred To Contact Radiology Diagnoses Abnormality of right breast on screening mammogram Procedures MR bilateral breast with and without contrast with CAD Nick Styles APRN-CNP [address] [facility] [place] [address] Referral ID Status Reason Start Date Expiration Date V isits Requested Visits Authorized [id number] Pending Review 04/21/2024 04/21/2025 1 1 Additional Source Comments INFORMATION SOURCE (unrecogn ized section and content) DATE CREATED AUTHOR 08/14/2018 [facility] DATE CREATED AUTHOR AUTHOR'S ORGANIZ ATION 01/13/2019 [facility] DATE CREATED AUTHOR AUTHOR'S ORGANIZ ATION 12/05/2022 [facility] DATE CREATED AUTHOR AUTHOR'S ORGANIZ ATION 06/13/2024 [facility] DATE CREATED AUTHOR AUTHOR'S ORGANIZ ATION 07/11/2024 [facility] DATE CREATED AUTHOR AUTHOR'S ORGANIZ ATION 07/11/2024 [facility] DATE CREATED AUTHOR AUTHOR'S ORGANIZ ATION 07/15/2024 [facility] DATE CREATED AUTHOR AUTHOR'S ORGANIZ ATION 08/13/2024 [facility] DATE CREATED AUTHOR AUTHOR'S ORGANIZ ATION 08/23/2024 [facility] DATE CREATED AUTHOR AUTHOR'S ORGANIZ ATION 02/10/2025 [facility] EPIC REASON FOR VISIT (unrecogniz ed section and content) Reason Comments Sleep Apnea Reason Comments Diabetes Follow-up Reason Onset Date Comments Med Refill 10/20/2024 Reason Comments Follow-up Reason Comments Med Refill Reason Comments Arm Pain Left Reason Comments medicare annual wellness Reason Comments Cough Reason Comments Hypertension Hyperlipidemia Reason Comments Establish Care Reason Onset Date Comments Med Refill 07/15/2024 Reason Comments Suspicious Right breast Specialty Diagnoses / Procedures Referred By Contac t Referred To Contact General Surgery Diagnoses Abnormal mammogram Procedures [place] OFFICE/OUTPATIENT NEW HIGH MDM 60 MINUTES Carmen Smith, EXCELSIOR MACHINE FEEDER [address] [facility] [address] [place] [address] Phone: tel: fax: [facility] [address] [facility] [address] [place] [address] Phone: tel: fax: Referral ID Status Reason Start Date Expiration Date V isits Requested Visits Authorized [id number] Closed Specialty Services Required 01/25/2025 07/24/2025 1 1 Care Teams (unrecognized sec tion and content) Campus Monitor Relationship Specialty Start Date End Date Unallocated, Noms Provider [address] [place] [address] PCP - General 04/02/23 Campus Monitor Relationship Specialty Start Date End Date Unallocated, Noms Provider [address] [place] [address] PCP - General 04/02/23 Team Status: Active Member Role Status Dates MITCH Villegas EXCELSIOR MACHINE FEEDER-C Primary Care Provider Active Team Status: Inactive Member Role Status Dates MITCH Villegas EXCELSIOR MACHINE FEEDER-C Primary Care Pro vider, Attending Provider Active Start: June 10, 2024 End: June 10, 2024 Campus Monitor Relationship Specialty Start Date End Date Rachel Blunt MD [address] [address] PCP - General 06/26/24 Nick Styles MD [address] [place] [address] Referring Physician Family Medicine 06/10/24 Campus Monitor Relationship Specialty Start Date End Date Rachel Blunt MD [address] [phone] PCP - General 06/26/24 Nick Styles MD [address] [place] [address] Referring Physician Family Medicine 06/10/24 Campus Monitor Relationship Specialty Start Date End Date Danay Hebert MD [address] [place] [address] PCP - General Endocrinology 09/15/24 Nick Styles MD [address] [place] [address] Referring Physician Family Medicine 06/10/24 Campus Monitor Relationship Specialty Start Date End Date Danay Hebert MD [address] [place] [address] PCP - General Endocrinology 09/15/24 Nick Styles MD [address] [place] [address] Referring Physician Family Medicine 06/10/24 Campus Monitor Relationship Specialty Start Date End Date Rachel Blunt MD [address] [phone] PCP - General 09/25/24 Nick Styles MD [address] [place] [address] Referring Physician Family Medicine 06/10/24 Campus Monitor Relationship Specialty Start Date End Date Rachel Blunt MD [address] [phone] PCP - General 09/25/24 Nick Styles MD [address] [place] [address] Referring Physician Family Medicine 06/10/24 Campus Monitor Relationship Specialty Start Date End Date Rachel Blunt MD [address] [phone] PCP - General 09/25/24 Nick Styles MD [address] [place] [address] Referring Physician Family Medicine 06/10/24 Campus Monitor Relationship Specialty Start Date End Date Rachel Blunt MD [address] [address] PCP - General 09/25/24 Nick Styles MD [address] [place] [address] Referring Physician Family Medicine 06/10/24 Campus Monitor Relationship Specialty Start Date End Date Rachel Blunt MD [facility] [address] [phone] PCP - General 09/25/24 Nick Styles MD [address] [place] [address] Referring Physician Family Medicine 06/10/24 Campus Monitor Relationship Specialty Start Date End Date Rachel Blunt MD [address] [place] [phone] PCP - General 09/25/24 Nick Styles MD [address] [place] [address] Referring Physician Family Medicine 06/10/24 Campus Monitor Relationship Specialty Start Date End Date Rachel Blunt MD [facility] [address] [address] PCP - General 09/25/24 Nick Styles MD [address] [place] [address] Referring Physician Family Medicine 06/10/24 Campus Monitor Relationship Specialty Start Date End Date Rachel Blunt MD [address] [phone] PCP - General 09/25/24 Nick Styles MD [address] [place] [address] Referring Physician Family Medicine 06/10/24 Campus Monitor Relationship Specialty Start Date End Date Cari Carpio CHIEF SCIENTIST-PNEUMATIC TUBE OPERATOR [address] [place] [address] PCP - General Internal Medicine 07/22/23 Campus Monitor Relationship Specialty Start Date End Date Cari Carpio CHIEF SCIENTIST-PNEUMATIC TUBE OPERATOR [address] [place] [address] PCP - General Internal Medicine 07/22/23 Campus Monitor Relationship Specialty Start Date End Date Cari Carpio CHIEF SCIENTIST-PNEUMATIC TUBE OPERATOR [address] [place] [address] PCP - General Internal Medicine 07/22/23 Campus Monitor Relationship Specialty Start Date End Date Cari Carpio CHIEF SCIENTIST-PNEUMATIC TUBE OPERATOR [address] [place] [address] PCP - General Internal Medicine 07/22/23 Campus Monitor Relationship Specialty Start Date End Date Cari Carpio CHIEF SCIENTIST-PNEUMATIC TUBE OPERATOR [address] [place] [address] PCP - General Internal Medicine 07/22/23 Campus Monitor Relationship Specialty Start Date End Date Nick Styles APRN-PLANER OPERATOR [address] [place] [address] PCP - General Internal Medicine 04/16/24 Campus Monitor Relationship Specialty Start Date End Date Nick Styles [facility] [address] [place] [address] PCP - General Internal Medicine 04/16/24 Campus Monitor Relationship Specialty Start Date End Date Nick Styles [facility] [address] [place] [address] PCP - General Internal Medicine 04/16/24 Campus Monitor Relationship Specialty Start Date End Date Nick Styles [facility] [address] [place] [address] PCP - General Internal Medicine 04/16/24 Campus Monitor Relationship Specialty Start Date End Date Nick Styles CHIEF [facility] [address] [place] [address] PCP - General Internal Medicine 04/16/24 Campus Monitor Relationship Specialty Start Date End Date Nick Styles CHIEF SCIENTISTPLANER OPERATOR [address] [place] [address] PCP - General Internal Medicine 04/16/24 Campus Monitor Relationship Specialty Start Date End Date Cari Carpio, CHIEF SCIENTIST-[facility] [address] [place] [address] PCP - General Internal Medicine 07/22/23 Campus Monitor Relationship Specialty Start Date End Date Cari Carpio, CHIEF SCIENTIST-PNEUMATIC TUBE OPERATOR [address] [place] [address] PCP - General Internal Medicine 07/22/23 Campus Monitor Relationship Specialty Start Date End Date iNck Styles CHIEF [facility] [address] [place] [address] PCP - General Internal Medicine 04/16/24 Campus Monitor Relationship Specialty Start Date End Date Cari Carpio, [facility] [address] [place] [address] PCP - General Internal Medicine 07/22/23 Campus Monitor Relationship Specialty Start Date End Date Nick Styles CHIEF [facility] [address] [place] [address] PCP - General Internal Medicine 04/16/24 Campus Monitor Relationship Specialty Start Date End Date Nick Styles CHIEF [facility] [address] [place] [address] PCP - General Internal Medicine 04/16/24 Campus Monitor Relationship Specialty Start Date End Date Nick Styles CHIEF [facility] [address] [place] [address] PCP - General Internal Medicine 04/16/24 Campus Monitor Relationship Specialty Start Date End Date Cari Carpio, [facility] [address] [place] [address] PCP - General Internal Medicine 07/22/23 Campus Monitor Relationship Specialty Start Date End Date Nick Styles CHIEF SCIENTISTPLANER OPERATOR [address] [place] [address] PCP - General Internal Medicine 04/16/24 Campus Monitor Relationship Specialty Start Date End Date Stephani, Nick Bob, CHIEF SCIENTIST-PLANER OPERATOR [address] [place] [address] PCP - General Internal Medicine 04/16/24 Campus Monitor Relationship Specialty Start Date End Date Stephani Nick BobGISELLEN-PLANER OPERATOR [address] [place] [address] PCP - General Internal Medicine 04/16/24 Campus Monitor Relationship Specialty Start Date End Date Rachel Blunt MD [address] [id number] PCP - General 09/25/24 Nick Styles MD Referring Physician Family Medicine 06/10/24 Team Status: Active Member Role Status Dates TORRES Joshua Primary Care Provider Active Team Status: Inactive Member Role Status Dates Jahaira Rodriguez DO Attending Provider Active Start: February 11, 2025 End: February 11, 2025 TORRES Joshua Primary Care Provider Active Start: February 11, 2025 End: February 11, 2025 Goals (unrecognized section and content) Goals may be documented in a n alternate section FOR RECORDS PERTAINING TO PATIENTS WHO ARE [...] BE BASED ON THE PRIMARY CLINICAL RECORDS. [facility] [facility]. provides no warranty or guarantee of the accuracy or completeness of information in this document.
--- NOTE | 2025-02-12 04:21 | PC.NURSE ---
Pedal pulses palpable
--- NOTE | 2025-02-12 04:35 | ED_ITS ---
HPI HPI - General Adult General Chief complaint: Extremity Problem, Nontraumatic Stated complaint: RIGHT LEG PAIN Time Seen by Provider: 02/12/25 04:32 Source: patient Mode of arrival: ambulance Limitations: no limitations History of Present Illness HPI narrative: Patient is a very pleasant 84-year-old female who is presenting to the ER with chief complaint of right lower posterior calf pain. Patient has been having this pain for 1 to 2 months. Patient states she ambulates with a walker. Patient says the pain is there when she ambulates only. She has no pain currently when she is sitting down. Patient does have more swelling to the right lower extremity, the left. Patient also has more redness to the right lower extremity compared to the left. Patient is on Eliquis for history of A- fib. She does not currently have A-fib. Patient had a charley horse on her left lower leg this evening that caused some of her pain. Patient said she used a walker to go to dinner tonight. When patient was walking back to her room and sitting in a chair, and getting from the chair to the bed she had a acute charley horse to the left leg that she had to stretch out for a cramp. Eventu ally the pain did get better. Patient did have test ordered for later this morning of x-rays, the patient was sent to the ER this morning for evaluation of pain. She currently has no pain. Patient says she did have a DVT study but that was 1.5 months ago approximately. Patient is coming from the [place]. No other acute complaints, no chest pain, no shortness of breath, no fever. Patient is very sharp mentally, ANO x 3. Very good historian. All systems are negative except as noted/marked. All systems reviewed and otherwise negative. Nurses note and vital signs reviewed and patient is not hypoxic. General: The patient appears well and in no apparent distress. Patient is resting comfortably on cart. Patient is not toxic, lethargic, or listless Skin: Warm, dry, no pallor noted. There is no rash noted. No petechiae, purpura. Head: Normocephalic, atraumatic Eye: Normal conjunctiva, no drainage, EOMI. PERRL Ears, Nose, Mouth, and Throat: oral mucosa is moist. Nares patent. Mouth without vesicles. Cardiovascular: Regular Rate and Rhythm, no murmur, gallop, rub Respiratory: Patient is in no distress, no accessory muscle use, lungs are clear to auscultation, no wheezing, rales or rhonchi Back: non-tender, no CVA tenderness bilaterally to percussion. No CT LS midline pain GI: Soft, morbid obese, no tenderness to palpation, no masses appreciated. No rebound, guarding, or rigidity noted. No distention Musculoskeletal: Patient has full range of motion of all of the extremities with no pain. Patient does have moderate tenderness palpation to the right lower distal posterior calf, right Achilles tendon is intact. No pain to right palpitate fossa or right posterior thigh. Patient has full flexion and extension of right thigh, no pain with internal/external rotation of right thigh. No pain with range of motion of right knee. She has no right lower back pain or right piriformis pain. Patient does have more swelling to the right leg compared to left. Patient does have evidence of redness erythema and possible venous stasis versus cellulitis to the right lower extremity and medial aspect of right lower leg. Patient does have mild erythema to the left lower extremity distal to the left knee as well, more advanced to the right leg compared to the left. More likely venous stasis to the left lower extremity. no motor, sensory, or focal neurological deficits Neurological: A&O x4, normal speech Psychiatric: Cooperative Related Data Allergies Allergy/AdvReac Type Severity Reaction Status Date / Time No Known Drug Allergies Allergy Verified 02/12/25 04:20 Opioid HPI Opioid Management Most Recent Opioid Data: No Data to Display PFSH PFSH Social History Little interest or pleasure in doing things: not at all Feeling down, depressed, or hopeless: not at all Exam Constitutional Vital Signs, click to edit/add: Last Vital Signs Temp 98.1 F 02/12/25 04:10 Pulse 78 02/12/25 04:10 Resp 18 02/12/25 04:10 BP 150/72 H 02/12/25 04:10 Pulse Ox 94 L 02/12/25 04:10 O2 Del Method Room Air 02/12/25 04:10 Course Vital Signs Vital signs: Vital Signs Temperature 98.1 F 02/12/25 04:10 Pulse Rate 78 02/12/25 04:10 Respiratory Rate 18 02/12/25 04:10 Blood Pressure 150/72 H 02/12/25 04:10 Pulse Oximetry 94 L 04/11/25 04:10 Oxygen Delivery Method Room Air 02/12/25 04:10 Temperature 98.1 F 02/12/25 04:10 Pulse Rate 78 02/12/25 04:10 Respiratory Rate 18 02/12/25 04:10 Blood Pressure 150/72 H 02/12/25 04:10 Pulse Oximetry 94 L 02/12/25 04:10 Oxygen Delivery Method Room Air 02/12/25 04:10 Medical Decision Making MDM Narrative Medical decision making narrative: Patient seen and examined: IV, lab work, blood cultures x 2, ultrasound of right lower extremity Differential diagnosis includes but is not limited to: Electrolyte abnormality, dehydration, right lower extremity DVT, venous stasis, right lower extremity cellulitis. Diagnostics and management: Patient will have laboratory studies Relevant laboratory interpretation: Radiological studies: Please see the formal radiological report. Ultrasound of right lower extremity will be performed when staff comes in the morning after 7 AM. Shared decision making: I discussed with the patient the necessary laboratory findings and radiological findings. Social barriers to healthcare: There are no food insecurities, there is no issue with transportation, there are no insurance barriers. Disposition: I discussed with the patient that we do not have ultrasound currently to perform right lower extremity DVT study. Patient wants nothing for pain at this time of 0445. Patient will be given a dose of Unasyn prophylactically. Patient will be transition to Dr. Zuleta at 0700 results of the ultrasound and final disposition and speaking to physician of record at [place] if needed. Due to patient's charley horse that she had earlier this evening that is not currently present, she had lumbar x-rays, hip x-rays, knee x-rays ordered for this morning. Patient has no pain to the left leg with full range of motion at this time. No pain to the posterior aspect of her left lower extremity. Discharge Plan Discharge Patient Disposition: Still a Patient
[2025-02-12 04:59] LABS: Basophils Percent Auto 0.4 % (0.2-2.0); Eosinophils Absolute Auto 0.2 10^3/uL (0.0-0.7); Eosinophils Percent Auto 2.4 % (0.9-7.0); Hematocrit 42.3 % (36.0-48.0); Hemoglobin 13.4 g/dL (12.0-16.0); Immature Granulocytes Abs Auto 0.05 10^3/uL (0.00-0.03); Immature Granulocytes Pct Auto 0.5 % (0.0-0.5); Lymphocytes Absolute Auto 3.9 10^3/uL (1.2-3.8); Lymphocytes Percent Auto 42.6 % (20.5-60.0); Mean Corpuscular HGB Conc 31.7 g/dL (29.9-35.2); Mean Corpuscular Hemoglobin 29.3 pg (26.7-34.0); Mean Corpuscular Volume 92.6 fL (81.0-99.0); Mean Platelet Volume 11.1 fL (9.5-13.5); Monocytes Absolute Auto 0.8 10^3/uL (0.3-0.8); Monocytes Percent Auto 8.8 % (1.7-12.0); Neutrophils Absolute Auto 4.2 10^3/uL (1.4-6.5); Neutrophils Percent Auto 45.3 % (43.0-75.0); Platelet Count 169 10^3/uL (150-450); Red Blood Count 4.57 10^6/uL (4.20-5.40); Red Cell Distribution Width 15.2 % (11.0-15.0); White Blood Count 9.2 10^3/uL (4.0-11.0)
[2025-02-12 05:09] LABS: Anion Gap 9.7; BUN Creatinine Ratio 20.4; Calcium 8.9 mg/dL (8.5-10.1); Chloride 103 mmol/L (98-107); Estimated GFR (African America 42 (>=60 mL/min/1.73m^2); Estimated GFR (Non-African Ame 35 (>=60 mL/min/1.73m^2); Glucose 177 mg/dL (74-106); Potassium 4.7 mmol/L (3.5-5.1); Sodium 138 mmol/L (136-145)
[2025-02-12] MEDS: AMPICILLIN SODIUM/SULBACTAM NA 3 GM in 0.9 % SODIUM CHLORIDE 100 ML IV (05:09)
--- NOTE | 2025-02-12 06:05 | PC.NURSE ---
this patient awake and alert sit upright on the bed watching tv. i informed this patient about the Doppler order, but the tech will arrive sometime after 7:00 am. this patient voices no concerns and this patient shows no signs of distress
--- NOTE | 2025-02-12 07:17 | PC.NURSE ---
this RN received nursing report from Steven CONRAD at 0700. all questions answered. awaiting US study at this time. US at bedside at 0702.
--- NOTE | 2025-02-12 07:51 | ED.GENADUL1 ---
HPI HPI - General Adult General Chief complaint: Extremity Problem, Nontraumatic Stated complaint: RIGHT LEG PAIN Time Seen by Provider: 02/12/25 04:32 Source: patient Mode of arrival: ambulance Limitations: no limitations History of Present Illness HPI narrative: 84-year-old female presents to the emergency department and was initially seen by Dr. Bhatia signed out to me after discussing the case with him thoroughly. Please see his full history and physical exam. Related Data Home Medications ?Medication ?Instructions ?Recorded ?Confirmed acetaminophen 325 mg tablet 650 mg PO TID fever or pain 02/12/25 02/12/25 albuterol sulfate 90 mcg/actuation 2 puff inhalation Q4H PRN 02/12/25 02/12/25 aerosol inhaler shortness of breath or wheezing apixaban 5 mg tablet (Eliquis) 5 mg PO BID 02/12/25 02/12/25 atorvastatin 40 mg tablet 40 mg PO DAILY 02/12/25 02/12/25 calcium 600 mg (as 1 tab PO Q12H 02/12/25 02/12/25 carbonate)-vitamin D3 20 mcg (800 unit) tablet cetirizine 10 mg tablet 10 mg PO DAILY 02/12/25 02/12/25 diltiazem HCl 120 mg capsule,24 120 mg PO 02/12/25 hr,extended release (Tiadylt ER) docusate sodium 100 mg capsule 100 mg PO DAILY PRN constipation 02/12/25 02/12/25 (Col-Rite) gabapentin 100 mg capsule 300 mg PO BID 02/12/25 02/12/25 gabapentin 300 mg capsule 600 mg PO DAILY 02/12/25 02/12/25 insulin glargine 100 unit/mL (3 60 unit subcut DAILY 02/12/25 02/12/25 mL) subcutaneous pen (Lantus Solostar U-100 Insulin) insulin lispro 100 unit/mL 20 unit subcut TID 02/12/25 02/12/25 subcutaneous pen levothyroxine 137 mcg capsule 137 mcg PO DAILY 02/12/25 02/12/25 linagliptin 5 mg tablet (Tradjenta) 5 mg PO DAILY 02/12/25 02/12/25 magnesium gluconate 27 mg 27 mg PO DAILY 02/12/25 02/12/25 magnesium (500 mg) tablet (Mag-G) nystatin 100,000 unit/gram topical 1 applic topical BID 02/12/25 02/12/25 ointment oxybutynin chloride 10 mg 10 mg PO DAILY 02/12/25 02/12/25 tablet,extended release 24 hr prednisone 10 mg tablet 40 mg PO DAILY 02/12/25 02/12/25 ropinirole 0.5 mg tablet 0.5 mg PO TID 02/12/25 02/12/25 spironolactone 25 mg tablet 25 mg PO BID 02/12/25 02/12/25 Previous Rx's ?Medication ?Instructions ?Recorded acetaminophen 300 mg-codeine 30 mg 1 tab PO Q6H PRN pain 5 days #20 02/12/25 tablet tabs cephalexin 500 mg capsule 500 mg PO QID 10 days #40 caps 02/12/25 Allergies Allergy/AdvReac Type Severity Reaction Status Date / Time No Known Drug Allergies Allergy Verified 02/12/25 04:20 Opioid HPI Opioid Management Most Recent Opioid Data: No Data to Display PFSH PFSH Social History Little interest or pleasure in doing things: not at all Feeling down, depressed, or hopeless: not at all Exam Constitutional Vital Signs, click to edit/add: Last Vital Signs Temp 98.8 F 02/12/25 05:14 Pulse 92 H 02/12/25 05:14 Resp 24 H 02/12/25 05:14 BP 180/61 H 02/12/25 05:31 Pulse Ox 94 L 02/12/25 05:31 O2 Del Method Nasal Cannula 02/12/25 05:14 O2 Flow Rate 3 02/12/25 05:14 Course Vital Signs Vital signs: Vital Signs Temperature 98.1 F 02/12/25 04:10 Pulse Rate 78 02/12/25 04:10 Respiratory Rate 18 02/12/25 04:10 Blood Pressure 150/72 H 02/12/25 04:10 Pulse Oximetry 94 L 02/12/25 04:10 Oxygen Delivery Method Room Air 02/12/25 04:10 Temperature 98.8 F 02/12/25 05:14 Pulse Rate 92 H 02/12/25 05:14 Respiratory Rate 24 H 02/12/25 05:14 Blood Pressure 180/61 H 02/12/25 05:31 Pulse Oximetry 94 L 02/12/25 05:31 Oxygen Delivery Method Nasal Cannula 02/12/25 05:14 Oxygen Delivery Flow Rate 3 02/12/25 05:14 Medical Decision Making MDM Narrative Medical decision making narrative: Doppler is negative for DVT. She has been given a dose of IV Unasyn here and is prescribed Keflex in the event that there is a component of cellulitis. She is also prescribed Tylenol 3. I will avoid anti-inflammatories because she is already on Eliquis. Treatment diagnosis and follow-up were discussed with the patient. Differential Diagnosis Differential Diagnosis: DVT, muscle pain, cellulitis Lab Data Lab results reviewed: Yes I reviewed the patient's lab results Labs: Lab Results 02/12/25 Range/Units 04:33 WBC 9.2 (4.0-11.0) 10^3/uL RBC 4.57 (4.20-5.40) 10^6/uL Hgb 13.4 (12.0-16.0) g/dL Hct 42.3 (36.0-48.0) % MCV 92.6 (81.0-99.0) fL MCH 29.3 (26.7-34.0) pg MCHC 31.7 (29.9-35.2) g/dL RDW 15.2 H (11.0-15.0) % Plt Count 169 (150-450) 10^3/uL MPV 11.1 (9.5-13.5) fL Neut % (Auto) 45.3 (43.0-75.0) % Lymph % (Auto) 42.6 (20.5-60.0) % [place] % (Auto) 8.8 (1.7-12.0) % Eos % (Auto) 2.4 (0.9-7.0) % Baso % (Auto) 0.4 (0.2-2.0) % Neut # (Auto) 4.2 (1.4-6.5) 10^3/uL Lymph # (Auto) 3.9 H (1.2-3.8) 10^3/uL [place] # (Auto) 0.8 (0.3-0.8) 10^3/uL Eos # (Auto) 0.2 (0.0-0.7) 10^3/uL Baso # (Auto) 0.0 (0.0-0.1) 10^3/uL Abs Immat Gran (auto) 0.05 H (0.00-0.03) 10^3/uL Imm/Tot Granulo (auto) 0.5 (0.0-0.5) % Sodium 138 (136-145) mmol/L Potassium 4.7 (3.5-5.1) mmol/L Chloride 103 (98-107) mmol/L Carbon Dioxide 30.0 (21.0-32.0) mmol/L Anion Gap 9.7 BUN 29.0 H (7.0-18.0) mg/dL Creatinine 1.42 H (0.55-1.02) mg/dL Est GFR ( Amer) 42 L (>=60 mL/min/1.73m^2) Est GFR (Non-Af Amer) 35 L (>=60 mL/min/1.73m^2) BUN/Creatinine Ratio 20.4 Glucose 177 H (74-106) mg/dL Calcium 8.9 (8.5-10.1) mg/dL Imaging Data Venous Doppler: Radiologist's impression: No DVT in the right lower extremity Discharge Plan Discharge Chief Complaint: Extremity Problem, Nontraumatic Clinical Impression: Right calf pain, Venous stasis dermatitis of both lower extremities Patient Disposition: Home, Self-Care Time of Disposition Decision: 07:49 Condition: Good Mode of Transportation: Private Vehicle Prescriptions / Home Meds: New acetaminophen-codeine 300-30 mg tablet 1 tab PO Q6H PRN (Reason: pain) 5 Days Qty: 20 0RF cephalexin 500 mg capsule 500 mg PO QID 10 Days Qty: 40 0RF No Action atorvastatin 40 mg tablet 40 mg PO DAILY calcium carbonate-vitamin D3 600 mg-20 mcg (800 unit) tablet 1 tab PO Q12H cetirizine 10 mg tablet 10 mg PO DAILY docusate sodium [Col-Rite] 100 mg capsule 100 mg PO DAILY PRN (Reason: constipation) Eliquis 5 mg tablet 5 mg PO BID gabapentin 100 mg capsule 300 mg PO BID Rx Instructions: 0800,11:30 gabapentin 300 mg capsule 600 mg PO DAILY Rx Instructions: HS levothyroxine 137 mcg capsule 137 mcg PO DAILY magnesium gluconate [Mag-G] 27 mg magnesium (500 mg) tablet 27 mg PO DAILY Rx Instructions: 08:00 nystatin 100,000 unit/gram ointment 1 applic TOPICAL BID ropinirole 0.5 mg tablet 0.5 mg PO TID spironolactone 25 mg tablet 25 mg PO BID Rx Instructions: 6:00,11:00 Tradjenta 5 mg tablet 5 mg PO DAILY diltiazem HCl [Tiadylt ER] 120 mg capsule,extended release 24hr 120 mg PO Rx Instructions: 08:00 acetaminophen 325 mg tablet 650 mg PO TID Rx Instructions: and PRN Q4 oxybutynin chloride 10 mg tablet extended release 24hr 10 mg PO DAILY Rx Instructions: 08:00 insulin lispro 100 unit/mL insulin pen 20 unit SUBCUT TID Rx Instructions: 07:00,11:00,16:00 insulin glargine [Lantus Solostar U-100 Insulin] 100 unit/mL (3 mL) insulin pen 60 unit SUBCUT DAILY Rx Instructions: 20:00 albuterol sulfate 90 mcg/actuation HFA aerosol inhaler 2 puff INHALATION Q4H PRN (Reason: shortness of breath or wheezing) prednisone 10 mg tablet 40 mg PO DAILY Rx Instructions: Ends 02/16 Print Language: Mongolian Instructions: Leg Cramps (ED), Leg Pain (ED) Referrals: NICK STYLES [Primary Care Provider] - 1 week
[2025-02-12] MEDS: ACETAMINOPHEN 300 MG/ 30 MG CODEINE TABLET 1 TAB PO (08:20)
--- NOTE | 2025-02-12 08:41 | PC.NURSE ---
this RN spoke with [facility], staff requesting pt trial ambulation prior to discharge. pt states able to walk but d/t pain she would like to rest. pt transferred to wheelchair from bed independently and denies needs of assistance. pt moves all extremities equally without issue. pt states [facility] walk[facility].
== END 2025-02-12 08:35 | disposition home or self-care (01) ==
PROVIDERS: Emergency Medicine; Emergency Provider Emergency Medicine; PCP Nurse Practitioner Family
DX: M79.661 Pain in right lower leg (principal); I87.8 Other specified disorders of veins; L30.9 Dermatitis, unspecified; R60.0 Localized edema
CPT/HCPCS: 36415; 80048; 85025; 87040; 93971; 96365; 99284; J0295